=== PATIENT | female | born 1940 | race Caucasian/White ===

== ENCOUNTER 2018-01-26 05:54 | Inpatient (IN) | payer OTHER ==
--- NOTE | 2018-01-26 06:28 | EKG ---
Test Date: 2018-01-26 Test Time: 06:00:46 Farm Service Consultant: RHODA MEASUREMENT RESULTS: Intervals: Rate: 85 VA: 170 QRSD: 94 QT: 394 QTc: 468 [place]: P: 52 VA: 170 QRS: 32 T: 147 INTERPRETIVE STATEMENTS: Normal sinus rhythm Normal ECG Compared to ECG 11/10/2009 15:55:16 no significant change from previous ECG Electronically Signed On 01-26-18 06:27:29 CDT by Kurtis Freeman
[2018-01-26] MEDS ORDERED: FENTANYL CITR 100 MCG/2 ML ONE ×2 (06:31→08:27)
[2018-01-26] MEDS ORDERED: ONDANSETRON 4 MG/2 ML VIAL ONE ×2 (06:33→07:31)
[2018-01-26 06:46] LABS: Absolute Lymphocytes (CBC) 1.1 K/uL (0.7-4.9); Absolute Monocytes 1.8 K/uL (0.1-1.3); Basophils % 0.3 % (0-1.3); Hematocrit 42.7 % (36.0-45.0); Lymphocytes % 5.7 % (15.3-44.8); MPV 9.1 fL (7.6-11.3); Monocytes % 9.6 % (3.3-12.3); RBC Red Blood Cell Count 4.86 M/uL (3.86-4.86)
[2018-01-26 06:52] LABS: Protime INR 0.99
[2018-01-26 06:57] LABS: Potassium 3.9 mEq/L (3.6-5.0)
[2018-01-26 07:03] LABS: Albumin 3.7 g/dL (3.2-5.5); Bilirubin Direct 0.1 mg/dL (0-0.2); Bilirubin Total 0.6 mg/dL (0.3-1.2); Magnesium 1.7 mg/dL (1.8-2.5); Protein, Total 7.8 g/dL (6.0-8.3)
[2018-01-26 07:06] LABS: CKMB Creatine Kinase MB 14.7 ng/ml (0.3-4.0)
[2018-01-26] MEDS ORDERED: ASPIRIN 81 MG CHEWABLE TABLET ONE (07:23)
[2018-01-26] MEDS ORDERED: NITROGLYCERIN 0.4 MG/TAB SL ONE (07:24)
[2018-01-26] MEDS ORDERED: MAGNESIUM SULFATE 1 gm IVPB 1 GM/100 ML BAG IV ONE (07:24)
[2018-01-26] MEDS ORDERED: ENOXAPARIN 80 MG/0.8 ML SQ ONE (07:24)
[2018-01-26] MEDS ORDERED: CLOPIDOGREL 75 MG TABLET ONE (07:49)
[2018-01-26] MEDS ORDERED: LIDOCAINE 1% 20 ML MDV ONE (07:55)
[2018-01-26] MEDS ORDERED: HEPA 1000U/500MLS 2,000 UNIT/1,000 ML BAG IV ONE (07:55)
--- NOTE | 2018-01-26 07:59 | EDPHYS ---
Physician Documentation [facility] Name: Radha Ocampo Age: 77 yrs Sex: Female : 1940 Arrival Date: 01/26/2018 Time: 05:55 Bed 17 Private MD: Toby Parks V ED Physician Abhi Paz HPI: 01/26 06:25 This 77 yrs old Female presents to ER via Wheelchair with complaints of Chest pm1 Pain > 30 y/o, Vomiting. 06:25 The patient or guardian reports chest pain that is located primarily in the substernal pm1 area, epigastric area. Onset: yesterday, at 18:00. The pain radiates to back. Associated signs and symptoms: Pertinent positives: diaphoresis, nausea, vomiting, Pertinent negatives: cough, dizziness, headache, palpitations, shortness of breath. The chest pain is described as "Pain". Duration: The patient or guardian reports a single episode, that is still ongoing, and unchanged, Same level of intensity since onset. Modifying factors: The symptoms are alleviated by nothing. the symptoms are aggravated by Deep breathing makes it worse. Severity of pain: in the emergency department the pain is a 10 / 10. The patient has not experienced similar symptoms in the past. The patient has not recently seen a physician, the patient's primary care provider is Dr. Parks. Raw Material Handler Pete. Historical: - Allergies: 06:03 meperidine HCl (rash); aa1 06:03 Morphine; aa1 - PMHx: 06:03 Depression; Hyperlipidemia; Hypertension; Hypothyroidism; renal cell carcinoma aa1 contained; - PSHx: 06:03 Cholecystectomy; Hysterectomy; right kidney removal; Gastric Bypass; aa1 - Immunization history:: Flu vaccine is up to date. - Social history:: Smoking status: Patient/guardian denies using tobacco. - Ebola Screening: : No symptoms or risks identified at this time. ROS: 06:25 Constitutional: Negative for fever, chills, and weight loss, Eyes: Negative for injury, pm1 pain, redness, and discharge, ENT: Negative for injury, pain, and discharge, Neck: Negative for injury, pain, and swelling. 06:25 Respiratory: Negative for shortness of breath, cough, wheezing. Pain with deep inspiration 06:25 : Negative for injury, bleeding, discharge, and swelling, MS/Extremity: Negative for injury and deformity, Skin: Negative for injury, rash, and discoloration, Neuro: Negative for headache, weakness, numbness, tingling, and seizure. 06:25 Cardiovascular: Positive for chest pain, Negative for edema, palpitations. 06:25 Abdomen/GI: Positive for abdominal pain, nausea, vomiting, of the epigastric area. 06:25 Back: Positive for pain to back radiated from chest. Exam: 06:25 Constitutional: This is a well developed, well nourished patient who is awake, alert, pm1 and in no acute distress. Head/Face: Normocephalic, atraumatic. Eyes: Pupils equal round and reactive to light, extra-ocular motions intact. Lids and lashes normal. Conjunctiva and sclera are non-icteric and not injected. Cornea within normal limits. Periorbital areas with no swelling, redness, or edema. ENT: Nares patent. No nasal discharge, no septal abnormalities noted. Tympanic membranes are normal and external auditory canals are clear. Oropharynx with no redness, swelling, or masses, exudates, or evidence of obstruction, uvula midline. Mucous membranes moist. Neck: Trachea midline, no thyromegaly or masses palpated, and no cervical lymphadenopathy. Supple, full range of motion without nuchal rigidity, or vertebral point tenderness. No Meningismus. Chest/axilla: Normal chest wall appearance and motion. Nontender with no deformity. No lesions are appreciated. Cardiovascular: Regular rate and rhythm with a normal S1 and S2. No gallops, murmurs, or rubs. Normal PMI, no JVD. No pulse deficits. Respiratory: Lungs have equal breath sounds bilaterally, clear to auscultation and percussion. No rales, rhonchi or wheezes noted. No increased work of breathing, no retractions or nasal flaring. Abdomen/GI: Soft, non-tender, with normal bowel sounds. No distension or tympany. No guarding or rebound. No evidence of tenderness throughout. Back: No spinal tenderness. No costovertebral tenderness. Full range of motion. Skin: Warm, dry with normal turgor. Normal color with no rashes, no lesions, and no evidence of cellulitis. MS/ Extremity: Pulses equal, no cyanosis. Neurovascular intact. Full, normal range of motion. 06:25 ECG was reviewed by the Attending Physician. NSR No Stemi 06:25 Neuro: Orientation: is normal, Motor: is normal, Sensation: is normal, no obvious gross deficits. Vital Signs: 06:03 BP 132 / 69; Pulse 89; Resp 20; Temp 97.4; Pulse Ox 95% on R/A; Weight 70.31 kg; Height aa1 5 ft. 4 in. (162.56 cm); Pain 9/10; 06:57 BP 111 / 72; Pulse 72; Resp 14 S; Pulse Ox 93% on R/A; Pain 9/10; jd3 08:02 BP 130 / 72; Pulse 88; Resp 18; Pulse Ox 97% on 2 lpm NC; ph 06:03 Body Mass Index 26.61 (70.31 kg, 162.56 cm) aa1 MDM: 06:12 Patient medically screened. pm1 07:22 Data reviewed: vital signs. Counseling: I had a detailed discussion with the patient pm1 and/or guardian regarding: the historical points, exam findings, and any diagnostic results supporting the discharge/admit diagnosis, lab results, the need for further work-up and treatment in the hospital. 07:50 Physician consultation: Kurtis Freeman MD was contacted at 07:40, and will see patient in pm1 ED, in the emergency department to see patient at 07:45, Pete will take the patient to laborer shellfish processing. 08:10 Physician consultation: Toby Parks MD was contacted at 08:00, regarding admission, pm1 patient's condition, Pete plan to take patient to laborer shellfish processing, in the emergency department to see patient at 08:10. 01/26 06:13 Order name: Basic Metabolic Panel; Complete Time: 07:09 pm01/26 06:13 Order name: BNP; Complete Time: 07:05 pm1 01/26 06:13 Order name: CBC with Diff; Complete Time: 06:55 pm1 01/26 06:13 Order name: Ckmb; Complete Time: 07:09 pm01/26 06:13 Order name: CPK; Complete Time: 07:09 pm1 01/26 06:13 Order name: LFT's; Complete Time: 07:09 pm1 01/26 06:13 Order name: Magnesium; Complete Time: 07:09 pm01/26 06:13 Order name: PT-INR; Complete Time: 07:05 pm01/26 06:13 Order name: Ptt, Activated; Complete Time: 07:05 pm1 01/26 06:13 Order name: Troponin (emerg Dept Use Only); Complete Time: 07:05 pm01/26 06:13 Order name: XRAY Chest (1 view) pm1 01/26 06:13 Order name: Lipase; Complete Time: 07:09 pm01/26 06:05 Order name: EKG; Complete Time: 06:05 aa01/26 06:05 Order name: EKG - Nurse/Tech; Complete Time: 06:05 aa01/26 06:13 Order name: Cardiac monitoring; Complete Time: 06:22 pm01/26 06:13 Order name: IV Saline Lock; Complete Time: 06:22 pm01/26 06:13 Order name: Labs collected and sent; Complete Time: 06:23 pm01/26 06:13 Order name: O2 Per Protocol; Complete Time: 06:23 pm01/26 06:13 Order name: O2 Sat Monitoring; Complete Time: 06:23 pm01/26 07:48 Order name: EKG; Complete Time: 07:48 pm1 01/26 07:48 Order name: EKG - Nurse/Tech; Complete Time: 08:20 pm1 Administered Medications: 06:39 Drug: Zofran 4 mg Route: IVP; Site: left antecubital; jd3 17:00 Follow up: Response: No adverse reaction ph 06:39 Drug: fentaNYL (PF) 25 mcg Route: IVP; Site: left antecubital; jd3 07:00 Follow up: Response: No adverse reaction ph 07:35 Drug: Aspirin Chewable Tablet 324 mg Route: PO; ph 08:00 Follow up: Response: No adverse reaction ph 07:38 Drug: Nitroglycerin 0.4 mg Route: Sublingual; ph 08:00 Follow up: Response: No adverse reaction; Pain is decreased ph 07:40 Drug: Magnesium Sulfate 1 grams Route: IVPB; Infused Over: 1 hrs; Site: left ph antecubital; 08:00 Follow up: Response: No adverse reaction; IV Status: Infusion continued upon admission ph 07:42 Drug: Lovenox 1 mg/kg {Note: 70 mg given.} Route: Sub-Q; Site: right lower abdomen; ph 08:00 Follow up: Response: No adverse reaction ph Disposition: 19:05 Co-signature as Attending Physician, Abhi Paz MD. pk Disposition: 01/26/18 07:59 Hospitalization ordered by Toby Parks for Inpatient Admission. Preliminary diagnosis is Non-ST elevation (NSTEMI) myocardial infarction. - Bed requested for Intensive Care Unit. - Status is Inpatient Admission. ph - Condition is Fair. - Problem is new. - Symptoms have improved. UTI on Admission? No Signatures: Dispatcher [employer] EDND Kamryn Demarco RN RN aa1 Abhi Paz MD MD pkl Radha Frost RN RN ph Roger Miles, JENNIFER TIE BINDER pm1 Hermes Todd RN RN jd3 Corrections: (The following items were deleted from the chart) 07:26 06:57 Abdomen Pelvis W Con+CT.RAD.BRZ ordered. EDND EDMS 08:22 07:59 Hospitalization Ordered by Toby Parks MD for Inpatient Admission. Preliminary ph diagnosis is Non-ST elevation (NSTEMI) myocardial infarction. Bed requested for Intensive Care Unit. Status is Inpatient Admission. Condition is Fair. Problem is new. Symptoms have improved. UTI on Admission? No. pm1
--- NOTE | 2018-01-26 07:59 | ER ---
Nurse's Notes [facility] Name: Radha Ocampo Age: 77 yrs Sex: Female : 1940 Arrival Date: 01/26/2018 Time: 05:55 Bed 17 Private MD: Toby Parks V Diagnosis: Non-ST elevation (NSTEMI) myocardial infarction Presentation: 01/26 06:01 Presenting complaint: Patient states: epigastric pain and vomiting since yesterday. aa1 Report sharp pain 04/27. Transition of care: patient was not received from another setting of care. Onset of symptoms was January 25, 2018. Risk Assessment: Do you want to hurt yourself or someone else? Patient reports no desire to harm self or others. Initial Sepsis Screen: Does the patient meet any 2 criteria? No. Patient's initial sepsis screen is negative. Does the patient have a suspected source of infection? No. Patient's initial sepsis screen is negative. Care prior to arrival: None. 06:01 Method Of Arrival: Wheelchair aa1 06:01 Acuity: CIARA 3 aa1 07:57 Acuity: CIARA 2 ss Triage Assessment: 06:03 General: Appears in no apparent distress. uncomfortable, Behavior is calm, cooperative, aa1 appropriate for age. Historical: - Allergies: 06:03 meperidine HCl (rash); aa1 06:03 Morphine; aa1 - PMHx: 06:03 Depression; Hyperlipidemia; Hypertension; Hypothyroidism; renal cell carcinoma aa1 contained; - PSHx: 06:03 Cholecystectomy; Hysterectomy; right kidney removal; Gastric Bypass; aa1 - Immunization history:: Flu vaccine is up to date. - Social history:: Smoking status: Patient/guardian denies using tobacco. - Ebola Screening: : No symptoms or risks identified at this time. Screenin:41 Abuse screen: Denies threats or abuse. Nutritional screening: No deficits noted. jd3 Tuberculosis screening: No symptoms or risk factors identified. Fall Risk IV access (20 points). Ambulatory Aid- None/Bed Rest/Nurse Assist (0 pts). Gait- Weak (10 pts.). Mental Status- Oriented to own ability (0 pts). Total [place] Fall Scale indicates Low Risk Score (25-44 pts). Fall prevention measures have been instituted. Side Rails Up X 2 Placed close to Nursing Station Frequent Obs/Assesments occuring Family Present and informed to notify staff if they need to leave bedside. Assessment: 05:55 General: Appears uncomfortable, Behavior is cooperative, appropriate for age. Pain: jd3 Complains of pain in chest Pain radiates to back and abdomen Pain currently is 10 out of 10 on a pain scale. Quality of pain is described as sharp, Pain began 1 day ago. Is continuous, Also complains of nausea. Neuro: Level of Consciousness is awake, alert, obeys commands, Oriented to person, place, time, situation. Cardiovascular: Heart tones S1 S2 present Capillary refill < 3 seconds Patient's skin is warm and dry. Rhythm is regular. Respiratory: Airway is patent Respiratory effort is even, unlabored, Respiratory pattern is regular, symmetrical, Breath sounds are clear bilaterally. GI: Abdomen is round Bowel sounds present X 4 quads. Abd is soft Abdomen is tender to palpation X 4 quads. Reports nausea, vomiting. : No signs and/or symptoms were reported regarding the genitourinary system. EENT: No signs and/or symptoms were reported regarding the EENT system. Derm: Skin is intact, Skin is dry, Skin is normal, Skin temperature is warm. Musculoskeletal: Circulation, motion, and sensation intact. Range of motion: intact in all extremities. 06:58 Reassessment: Patient appears in no apparent distress at this time. Patient and/or jd3 family updated on plan of care and expected duration. Pain level reassessed. Patient is alert, oriented x 3, equal unlabored respirations, skin warm/dry/pink. Patient states symptoms have not improved. 07:05 Reassessment: Roger Miles NP notified of critical lab value. Troponin 1.86 and ss CKMB 14.7. 07:55 Reassessment: Patient appears in no apparent distress at this time. Patient and/or ph family updated on plan of care and expected duration. Pain level reassessed. Patient is alert, oriented x 3, equal unlabored respirations, skin warm/dry/pink. Dr Freeman at bedside to speak w/ pt, pt to be transferred to golf course laborer for catherterization. 08:00 Reassessment: laborer adjustable steel joist staff at bedside to transport patient to laborer adjustable steel joist. Vital Signs: 06:03 BP 132 / 69; Pulse 89; Resp 20; Temp 97.4; Pulse Ox 95% on R/A; Weight 70.31 kg; Height aa1 5 ft. 4 in. (162.56 cm); Pain 9/10; 06:57 BP 111 / 72; Pulse 72; Resp 14 S; Pulse Ox 93% on R/A; Pain 9/10; jd3 08:02 BP 130 / 72; Pulse 88; Resp 18; Pulse Ox 97% on 2 lpm NC; ph 06:03 Body Mass Index 26.61 (70.31 kg, 162.56 cm) aa1 Vitals: 08:02 Cardiac Rhythm Assessment Regular. ph ED Course: 05:55 Patient arrived in ED. am2 05:55 Toby Parks MD is Private Physician. am2 05:56 Hermes Todd, CONCETTA is Primary Nurse. jd3 06:02 Triage completed. aa1 06:03 Roger Miles NP is PHCP. pm1 06:03 Abhi Paz MD is Attending Physician. pm1 06:03 Arm band placed on right wrist. Patient placed in an exam room, on a stretcher. aa1 06:04 Patient has correct armband on for positive identification. Placed in gown. Bed in low aa1 position. Call light in reach. electronic device monitor on. Pulse ox on. NIBP on. 06:04 EKG done, by ED staff, reviewed by Abhi Paz MD. Patient maintains SpO2 saturation aa1 greater than 95% on room air. 06:43 X-ray completed. Portable x-ray completed in exam room. Patient tolerated procedure kw well. 06:44 XRAY Chest (1 view) In Process Unspecified. EDMS 07:57 Toby Parks MD is Hospitalizing Provider. pm1 08:00 Inserted saline lock: 20 gauge in right antecubital area, using aseptic technique. ph 08:01 Surgical consent explained by staff, explained by physician, signed by patient, pt ph consented for cardiac cath. 08:02 No provider procedures requiring assistance completed. ph 08:05 Patient admitted, IV remains in place. ph Administered Medications: 06:39 Drug: Zofran 4 mg Route: IVP; Site: left antecubital; jd3 17:00 Follow up: Response: No adverse reaction ph 06:39 Drug: fentaNYL (PF) 25 mcg Route: IVP; Site: left antecubital; jd3 07:00 Follow up: Response: No adverse reaction ph 07:35 Drug: Aspirin Chewable Tablet 324 mg Route: PO; ph 08:00 Follow up: Response: No adverse reaction ph 07:38 Drug: Nitroglycerin 0.4 mg Route: Sublingual; ph 08:00 Follow up: Response: No adverse reaction; Pain is decreased ph 07:40 Drug: Magnesium Sulfate 1 grams Route: IVPB; Infused Over: 1 hrs; Site: left ph antecubital; 08:00 Follow up: Response: No adverse reaction; IV Status: Infusion continued upon admission ph 07:42 Drug: Lovenox 1 mg/kg {Note: 70 mg given.} Route: Sub-Q; Site: right lower abdomen; ph 08:00 Follow up: Response: No adverse reaction ph Outcome: 07:59 Decision to Hospitalize by Provider. pm1 08:04 Admitted to Card Mounter accompanied by nurse, accompanied by tech, family with patient, ph via stretcher, with oxygen. 08:04 Condition: stable 08:04 Instructed on the need for admit. 08:22 Patient left the ED. ph Signatures: Dispatcher [employer] EDKamryn Joy RN RN aa1 Kavitha Maxwell RN RN Khadijah Vo Patricia, RN RN ph Roger Miles NP METAL MILLING MACHINE OPERATOR pm1 Saira Chahal Jonathon RN RN jd3 Corrections: (The following items were deleted from the chart) 07:49 07:42 Lovenox 1 mg/kg Sub-Q in right lower abdomen ph ph
[2018-01-26] MEDS ORDERED: NA CHLORIDE 0.9% 500 ML ONE (08:21)
[2018-01-26] MEDS ORDERED: MIDAZOLAM HCL 2 MG/2 ML INJ ONE (08:27)
[2018-01-26] MEDS ORDERED: NA CHLORIDE 0.9% 0 ML ONE (08:28)
[2018-01-26] MEDS ORDERED: ATROPINE SULF 1 MG/10 ML SYR IV ONE (08:28)
--- NOTE | 2018-01-26 09:29 | EKG ---
Test Date: 2018-01-26 Test Time: 06:46:58 Supervisor [place]: RHODA MEASUREMENT RESULTS: Intervals: Rate: 73 [place]: 176 QRSD: 94 QT: 406 QTc: 447 [place]: P: 55 [place]: 176 QRS: 30 T: 57 INTERPRETIVE STATEMENTS: Normal sinus rhythm Nonspecific T wave abnormality Abnormal ECG Compared to ECG 01/26/2018 06:00:46 T-wave abnormality now present Electronically Signed On 01-26-18 09:29:15 CDT by Kurtis Freeman
[2018-01-26] MEDS ORDERED: NICARDIPINE HCL 25 MG/10 ML IV ONE (09:54)
[2018-01-26] MEDS ORDERED: HEPARIN 5000 UNIT/ML 1 ML VIAL ONE (09:54)
[2018-01-26] MEDS ORDERED: NITROGLYCERIN 100 MCG/ML SYR (for cath lab use only) IV ONE (09:54)
--- NOTE | 2018-01-26 09:59 | RAD REPORT ---
EXAM DESCRIPTION: RAD - Chest Single View - 01/26/2018 6:44 am CLINICAL HISTORY: Epigastric pain COMPARISON: April 2014 TECHNIQUE: AP portable chest image was obtained 0640 hours . FINDINGS: Interstitial markings are accentuated by under penetrated technique and shallow inspiratio n. Findings are still questionable for early interstitial edema or infiltrate. There is a minimal aubrey eolar component in the mid and lower left lung field. Trachea is midline. . Vasculature within normal limits for portable imaging. Heart size is upper normal, felt to be stable. Small hiatal hernia or d iaphragmatic eventration medial left base. No measurable pleural effusion and no pneumothorax. No [place] ss bony abnormality seen. No acute aortic findings suspected. IMPRESSION: Prominent interstitial markings with patchy alveolar opacities on the left. Patient has a baseline prominent interstitial pattern. Current findings are suspicious for edema or i nfiltrate. Correlation is needed with any volume overload findings.
[2018-01-26] MEDS ORDERED: NITROGLYCERIN 0.4 MG/TAB SL PRN (10:06)
--- NOTE | 2018-01-26 10:56 | OP ---
Surgeon: Kurtis Freeman MD Procedures: Left heart catheterization, coronary left ventricular angiography. Procedure Findings: The patient has normal coronary arteries. She is left dominant. The left ventr icular angiogram shows a typical [place] with apical ballooning, normal contractility of the mor e proximal segments, and completely normal coronary arteries. Procedure In Detail: The patient had ongoing chest pain, chest pain started 24 hours before the proc edure, brought to the cardiac computer lab assistant in a fasting state, sedated with Versed and fentanyl, prepared and draped in usual sterile fashion. Right radial approach was used. A 1% lidocaine was used to an esthetize the skin over the right radial artery. The artery entered using a 21-gauge needle. A 0.02 1 inch diameter guidewire was used to cannulate the artery. This was used to place a 6-Sinhala [email or web address] radial sheath. As soon as the sheath was in, we gave the radial cocktail consisting of nicardipine, heparin, and nitroglycerin. We used a TIG catheter by [employer], guided into the ascending aorta using a Glidewire and fluoroscopy. We used the same catheter to angiogram the left ventricle and right an d left coronary arteries. At the end of the procedure, all catheters were withdrawn over a J-wire. Sheath was flushed, removed, and arteriotomy closed with a TR band. No complications from the proced ure. Estimated Blood Loss: 5 cc. Vp Information Technology: Cheli Jacobson. TONIE/ANTONIO Voice ID: [id number] Report ID: [id number]
--- NOTE | 2018-01-26 12:02 | CON ---
History Of Present Illness: Ms. Ocampo started having chest pain yesterday, more than 24 hours afte r this dictation. It was central chest. It made her feel short of breath and each breath hurts her. She did not see a doctor until about 6 a.m. today. She has had time to do an EKG that did not show a classic injury pattern nor definite Q-waves, but had a lot of nonspecific changes and troponin cam e back at 1.86. The patient still has her pain. Nitro seemed to have relieved it some, and I was as ked to see her after all those things were done. Ms. Ocampo has never had coronary heart disease be fore. She has had noninvasive workups. A nuclear stress test was normal in 2017. An echocardiogram shows aortic sclerosis, mild stenosis. No significant stenosis, not enough to call it stenosis. Ej ection fraction has always been normal. She has underlying hypertension. Since being in the [facility], she has received a loading dose of Plavix, a large dose of aspirin 324 mg, and 80 mg of Lovenox. The patient continues to have the chest pain. Allergies: SHE REPORTS ALLERGIES TO MEPERIDINE AND MORPHINE. Physical Examination: General: She is alert, oriented, pleasant, appears to be her stated age. She is in mild distress wh en she takes a breath and it hurts more. Lungs: Clear to auscultation. Heart: Reveals a regular rate and rhythm. Grade 1/6 systolic murmur. It does not really sound like aortic stenosis. Extremities: Reveal palpable pulses. Social History: The patient uses no tobacco. Rare alcohol. No illegal drugs. Has no history of di abetes. Laboratory Data: Her creatinine is 0.81, sodium is 126. I believe she does take a diuretic amongst all of her other medications that may be the cause for it. We are going to take her to the metallurgy laboratory technician, see where the coronary situation is. If she has normal coronaries with symptoms like this, then I would ask the ER doctors to consider an acute pulmonary em bolus and get a CT angio of the chest. TONIE/ANTONIO Voice ID: [id number] Report ID: [id number]
[2018-01-26] MEDS: ACETAMINOPHEN 500 MG TAB PO PRN (13:47)
[2018-01-26] MEDS: ONDANSETRON 4 MG/2 ML VIAL IV PRN ×2 (13:47→17:39)
[2018-01-26 13:55] VITALS: BMI 30.4
--- NOTE | 2018-01-26 14:42 | RAD REPORT ---
EXAM DESCRIPTION: US - Abdomen Exam Complete - 01/26/2018 2:31 pm CLINICAL HISTORY: Abdominal pain, nausea and vomiting, history of cholecystectomy and right nephrect smiley COMPARISON: None. FINDINGS: Gallbladder is absent. No mass or abnormal fluid collection in the gallbladder fossa. Comm on bile duct is normal with no common duct stone identified. The liver and spleen show no suspicious findings. Splenic granulomas are present. The pancreas is grossly normal but partially obscured. Fatt y infiltration of the liver is suspected. Right kidney is absent. No mass in the right renal fossa. No hydronephrosis or mass of the left kidne y. Aorta is normal is size. No ascites or bulky lymphadenopathy. IMPRESSION: Gallbladder and right kidney are absent. No acute abdominal findings. No significant cheri nge from the March 2017 study.
--- NOTE | 2018-01-26 16:13 | EKG ---
Test Date: 2018-01-26 Test Time: 07:54:11 Mva Operator: CARMENCITA MEASUREMENT RESULTS: Intervals: Rate: 76 PA: 164 QRSD: 90 QT: 406 QTc: 456 [place]: P: 54 PA: 164 QRS: 24 T: 36 INTERPRETIVE STATEMENTS: Normal sinus rhythm Nonspecific T wave abnormality Abnormal ECG Compared to ECG 01/26/2018 06:46:58 No significant changes Electronically Signed On 01-26-18 16:12:07 CDT by Kurtis Freeman
--- NOTE | 2018-01-26 18:06 | P.HP ---
Certification for Inpatient Patient admitted to: Inpatient With expected LOS: >2 Midnights Practitioner: I am a practitioner with admitting privileges, knowledge of patient current condition, hospital course, and medical plan of care. Services: Services provided to patient in accordance with Admission requirements found in Title 42 Section 412.3 of the Code of Federal Regulations Patient History Date of Service: 01/26/18 Reason for admission: CHEST PAIN History of Present Illness: MRS. WELLER HAS CHEST PAIN WITH RADIATION TO JAW, NAUSEA, VOMITING FOR A FEW TIMES AND DIAPHORESIS. SHE HAS TROPONIN ELEVATION AND ANTERIOR EKG CHANGES. DR. ELDER DID CATH THIS AM AND IT SHOWS NORMAL CORONARIES. Allergies meperidine HCl [From Demerol] Allergy (Verified 03/30/17 20:38) Unknown Morphine Allergy (Uncoded 03/30/17 20:38) Unknown Home Medications: Aspirin 1 pill PO DAILY 03/30/17 Levothyroxine [Synthroid*] 75 mcg PO DAILY 03/30/17 Simvastatin 1 pill PO DAILY 03/30/17 Losartan Potassium [Cozaar] 100 mg PO DAILY 03/31/17 Cholecalciferol (Vitamin D3) [Vitamin D3] 1 cap PO DAILY 01/26/18 Cranberry Conc/C/Bacill Coag [Cranberry Tablet] 4,200 mg PO DAILY 01/26/18 Sertraline [Zoloft] 100 mg PO DAILY 01/26/18 - Past Medical/Surgical History Has patient received pneumonia vaccine in the past: Yes Diabetic: No -: Herpes -: Thyroidisim -: Hypertension -: Cholesterol -: Depression -: GERD -: Arthritis pain -: Kidney Cancer -: Nephrectomy Right -: gastric bypass -: Hysteroctomy -: Hernia Repair - Social History Smoking Status: Never smoker Alcohol use: No CD- Drugs: No Caffeine use: No Place of Residence: Home Review of Systems 10-point ROS is otherwise unremarkable General: Weakness, Malaise Cardiovascular: Chest Pain Gastrointestinal: Nausea, Vomiting Physical Examination - Vital Signs Temperature: 98.4 F Blood Pressure: 132/57 Pulse: 69 Respirations: 15 Pulse Ox (%): 99 - Physical Exam General: Alert, Mild distress HEENT: Atraumatic, PERRLA, Mucous membr. moist/pink, EOMI, Sclerae nonicteric Neck: Supple, 2+ carotid pulse no bruit, No LAD, Without JVD or thyroid abnormality Respiratory: Clear to auscultation bilaterally, Normal air movement Cardiovascular: Regular rate/rhythm, Normal S1 S2 Gastrointestinal: Normal bowel sounds, No tenderness Musculoskeletal: No tenderness Integumentary: No rashes Neurological: Normal gait, Normal speech, Normal strength at 5/5 x4 extr, Normal tone, Normal affect Lymphatics: No axilla or inguinal lymphadenopathy - Studies Laboratory Data (last 24 hrs) 01/26/18 06:13: PT 11.7, INR 0.99, APTT 28.7 01/26/18 06:13: WBC 18.9 H, Hgb 14.1, Hct 42.7, Plt Count 273 01/26/18 06:13: B-Natriuretic Peptide 575 H 01/26/18 06:13: Sodium 126 L, Potassium 3.9, BUN 13, Creatinine 0.81, Glucose 168 H, Magnesium 1.7 L, Total Bilirubin 0.6, AST 35, ALT 16, Alkaline Phosphatase 80, Lipase 19 L Assessment and Plan - Problems (Diagnosis) (1) Non-ST elevated myocardial infarction Current Visit: Yes Status: Acute Plan: UNUSUAL SHE HAD NORMAL CATH. RESUME ASA LOVENOX OXYGEN SHE MAY HAVE EMBOLIC EVENT FROM [place]. DR. ELDER ON CASE. (2) HTN (hypertension) Current Visit: Yes Status: Acute (3) Leukocytosis Current Visit: Yes Status: Acute Plan: [place] CAN GIVE THIS BANDS HIGH NO SIGNS OF INFECTION. I WILL REDO LAB IN AM. (4) Hyponatremia Current Visit: Yes Status: Acute Plan: WILL GIVE IVF AND WATCH MEDS. AVOID DIURETICS IF PERSISTANT WILL DO MORE QU. - Advance Directives Does patient have a Living Will: No Does patient have a Durable POA for Healthcare: No
[2018-01-26] MEDS: SERTRALINE HCL 100 MG TAB PO SCH (21:55)
[2018-01-26] MEDS: ATORVASTATIN 10 MG TAB PO SCH (21:55)
[2018-01-27] MEDS: ACETAMINOPHEN 500 MG TAB PO PRN ×2 (01:55→12:37)
[2018-01-27 05:16] LABS: Absolute Lymphocytes (CBC) 1.3 K/uL (0.7-4.9); Absolute Neutrophil 8.7 K/uL (1.8-8.0); Basophils % 0.7 % (0-1.3); Eosinophils % 0.9 % (0-4.4); Hematocrit 37.2 % (36.0-45.0); Lymphocytes % 10.3 % (15.3-44.8); MCH 29.1 pg (27.0-35.0); MCV 88.9 fL (80-100); MPV 9.2 fL (7.6-11.3); Monocytes % 16.4 % (3.3-12.3); RBC Red Blood Cell Count 4.18 M/uL (3.86-4.86)
[2018-01-27] MEDS: LEVOTHYROXINE SOD 0.075 MG TAB PO SCH (06:03)
[2018-01-27] MEDS: ONDANSETRON 4 MG/2 ML VIAL IV PRN (08:24)
[2018-01-27] MEDS ORDERED: SIMVASTATIN PO SCH (09:00)
[2018-01-27] MEDS ORDERED: SERTRALINE HCL 100 MG TAB PO SCH (09:00)
[2018-01-27] MEDS ORDERED: HOME MED 1 EA UNK (Cholecalciferol (Vitamin D3) [Vitamin D3] 1 CAP) PO SCH (09:00)
[2018-01-27] MEDS ORDERED: HOME MED 1 EA UNK (Losartan Potassium [Cozaar] 100 MG) PO SCH (09:00)
[2018-01-27] MEDS: VITAMIN D 1000 UNIT TAB PO SCH (10:39)
[2018-01-27] MEDS: LOSARTAN POTASSIUM 50 MG TABLET PO SCH (10:39)
[2018-01-27] MEDS: ASPIRIN EC 81 MG TAB PO SCH (10:40)
--- NOTE | 2018-01-27 10:49 | RAD REPORT ---
EXAM DESCRIPTION: CT - Chest Angio - 01/27/2018 10:33 am CLINICAL HISTORY: Chest pain. COMPARISON: None. TECHNIQUE: CT angiogram of the pulmonary arteries was performed with MIP. All CT scans are performed using dose optimization technique as appropriate and may include automated exposure control or mA/KV adjustment according to patient size. FINDINGS: No evidence of pulmonary thromboembolism. No acute aortic finding demonstrated. Linear subsegmental atelectasis in both posterior lung bases. No focal infiltrate. Trace pleural fluid. No concerning bony finding. IMPRESSION: No evidence of pulmonary thromboembolism. No acute lung findings.
--- NOTE | 2018-01-27 10:54 | RAD REPORT ---
EXAM DESCRIPTION: CT - Abdomen W Contrast CLINICAL HISTORY: Abdominal pain COMPARISON: 12/12/[address] scans are performed using dose optimization technique as appropriate and may includ e automated exposure control or mA/KV adjustment according to patient size. FINDINGS: Trace bilateral pleural fluid, greater on the right. Postsurgical changes are present of a gastric bypass. The liver, spleen, pancreas, adrenal glands and left kidney are within normal limits. The right kidne y is absent. No free fluid, bowel obstruction or free air. Prominent diverticulosis is present. The appendix is no rmal. No significant adenopathy in the abdomen. Small fat containing ventral hernia. Moderate lumbar degenerative changes. IMPRESSION: Prominent diverticulosis is noted without diverticulitis. Trace bilateral pleural fluid.
--- NOTE | 2018-01-27 13:09 | PN ---
Date of Progress Note: 01/27/2018 Subjective: Ms. Ocampo is a 77-year-old woman. She had come in to the hospital with nausea, vomiti ng, elevated troponin, thought to have non-ST elevation myocardial infarction; however, a heart anuradha terization, which was done by Dr. Kurtis Freeman yesterday via right wrist approach, showed normal kyle naries. Overnight had no telemetry issues. No chest pain. Her right wrist site appeared to be inta ct with good radial pulses and ulnar pulses bilaterally. There is no hematoma. We will sign off Mrs Maximus Ocampo case. She can certainly go to a regular room whenever it is okay with Dr. Parks. CALLIE/ANTONIO Voice ID: [id number] Report ID: [id number]
--- NOTE | 2018-01-27 14:41 | EKG ---
Test Date: 2018-01-27 Test Time: 12:04:52 Continuous Improvement Coach: CARMENCITA MEASUREMENT RESULTS: Intervals: Rate: 71 MO: 168 QRSD: 84 QT: 470 QTc: 510 [place]: P: 65 MO: 168 QRS: 2 T: 176 INTERPRETIVE STATEMENTS: Normal sinus rhythm T wave abnormality, consider inferior ischemia T wave abnormality, consider anterolateral ischemia Prolonged QT Abnormal ECG Compared to ECG 01/27/2018 08:09:35 No significant changes Electronically Signed On 01-27-18 14:39:52 CDT by Lenard Angela
--- NOTE | 2018-01-27 14:42 | EKG ---
Test Date: 2018-01-27 Test Time: 08:09:35 [employer]her Dietary Service Supervisor: CARMENCITA MEASUREMENT RESULTS: Intervals: Rate: 64 NV: 182 QRSD: 88 QT: 508 QTc: 524 [place]: P: 70 NV: 182 QRS: 26 T: 190 INTERPRETIVE STATEMENTS: Normal sinus rhythm T wave abnormality, consider inferior ischemia T wave abnormality, consider anterolateral ischemia Prolonged QT Abnormal ECG Compared to ECG 01/26/2018 07:54:11 Possible ischemia now present Prolonged QT interval now present T-wave abnormality still present Electronically Signed On 01-27-18 14:40:07 CDT by Lenard Angela
[2018-01-27 16:22] LABS: Urine Appearance CLEAR; Urine Bilirubin NEGATIVE (NEG); Urine Blood NEGATIVE (NEG); Urine Color YELLOW; Urine Glucose NEGATIVE (NEG); Urine Protein NEGATIVE (NEG); Urine Specific Gravity 1.025 (1.005-1.030); Urine Urobilinogen 0.2 mg/dL (0.2-1.0)
[2018-01-27 16:28] LABS: Urine Microscopic Reflex ORDER UMIC
[2018-01-27 16:48] LABS: Urine Bacteria <20 /HPF (<20); Urine Culture Reflex Order NOT NEEDED; Urine RBC <5 /HPF (NONE SEEN)
[2018-01-27] MEDS ORDERED: ENOXAPARIN 40 MG/0.4 ML SQ SCH (17:00)
--- NOTE | 2018-01-27 18:26 | P.PN ---
Subjective Date of Service: 01/27/18 Chief Complaint: CHEST PAIN Subjective: Improving (MUCH BETTER) Review of Systems 10-point ROS is otherwise unremarkable General: Weakness, Malaise Physical Examination - Vital Signs Temperature: 97.5 F Blood Pressure: 148/52 Pulse: 66 Respirations: 14 Pulse Ox (%): 97 - Physical Exam General: Mild distress, Obese HEENT: Atraumatic, PERRLA, EOMI Neck: Supple, JVD not distended Respiratory: Clear to auscultation bilaterally, Normal air movement Cardiovascular: Regular rate/rhythm, Normal S1 S2 Gastrointestinal: Normal bowel sounds, No tenderness Musculoskeletal: No tenderness Integumentary: No rashes Neurological: Normal speech, Normal tone, Normal affect Lymphatics: No axilla or inguinal lymphadenopathy - Studies Medications List Reviewed: Yes Assessment And Plan - Current Problems (Diagnosis) (1) Non-ST elevated myocardial infarction Onset Date: 01/27/18 Current Visit: Yes Status: Acute Plan: UNUSUAL SHE HAD NORMAL CATH. RESUME ASA LOVENOX OXYGEN SHE MAY HAVE EMBOLIC EVENT FROM [place]. DR. ELDER ON CASE. MEDICAL MX CATH NEGATIVE MOVE TO FLOOR STABLE CT SCANS ORDERED TO RULE OUT OTHER CAUSES OF WBC ELEVATION. (2) HTN (hypertension) Onset Date: 01/27/18 Current Visit: Yes Status: Acute (3) Leukocytosis Onset Date: 01/27/18 Current Visit: Yes Status: Acute Plan: [place] CAN GIVE THIS BANDS HIGH NO SIGNS OF INFECTION. I WILL REDO LAB IN AM. (4) Hyponatremia Onset Date: 01/27/18 Current Visit: Yes Status: Acute Plan: WILL GIVE IVF AND WATCH MEDS. AVOID DIURETICS IF PERSISTANT WILL DO MORE QU.
[2018-01-27] MEDS: ATORVASTATIN 10 MG TAB PO SCH (20:06)
[2018-01-27] MEDS: SERTRALINE HCL 100 MG TAB PO SCH (20:06)
[2018-01-28] MEDS: LEVOTHYROXINE SOD 0.075 MG TAB PO SCH (06:03)
[2018-01-28] MEDS ORDERED: PANTOPRAZOLE 40MG TABLET PO SCH (06:30)
[2018-01-28] MEDS: LOSARTAN POTASSIUM 50 MG TABLET PO SCH (08:40)
[2018-01-28] MEDS: VITAMIN D 1000 UNIT TAB PO SCH (08:40)
[2018-01-28] MEDS: ASPIRIN EC 81 MG TAB PO SCH (08:40)
[2018-01-28 13:57] VITALS: O2SAT 97
[2018-01-28 14:04] VITALS: BP 95/50; TEMP 97.7
--- NOTE | 2018-01-28 21:40 | P.DS ---
Admission Date: 01/26/18 Discharge Date: 01/28/18 Disposition: ROUTINE DISCHARGE Discharge Condition: FAIR Reason for Admission: CHEST PAIN - Problems (1) Non-ST elevated myocardial infarction Onset Date: 01/27/18 Status: Acute (2) HTN (hypertension) Onset Date: 01/27/18 Status: Acute (3) Leukocytosis Onset Date: 01/27/18 Status: Acute (4) Hyponatremia Onset Date: 01/27/18 Status: Acute Brief History of Present Illness: MRS. WELLER HAS CHEST PAIN WITH RADIATION TO JAW, NAUSEA, VOMITING FOR A FEW TIMES AND DIAPHORESIS. SHE HAS TROPONIN ELEVATION AND ANTERIOR EKG CHANGES. DR. ELDER DID CATH THIS AM AND IT SHOWS NORMAL CORONARIES. MS. WELLER HAS DONE WELL . SHE HAS NO MORE CHEST PAIN. HER CATH IS NEGATIVE. SHE IS STABLE TO GO HOME. HER CT CHEST , ABD AND PELVIS ARE NEGATIVE. Vital Signs/Physical Exam: Temp Pulse Resp BP Pulse Ox 97.7 F 72 18 95/50 L 96 01/28/18 12:00 01/28/18 12:00 01/28/18 12:00 01/28/18 12:00 01/28/18 12:00 Laboratory Data at Discharge: WBC 12.2 K/uL (4.3-10.9) H D 01/27/18 04:40 Hgb 12.2 g/dL (12.0-15.0) 01/27/18 04:40 Hct 37.2 % (36.0-45.0) 01/27/18 04:40 Plt Count 178 K/uL (152-406) D 01/27/18 04:40 PT 11.7 SECONDS (9.5-12.5) 01/26/18 06:13 INR 0.99 01/26/18 06:13 APTT 28.7 SECONDS (24.3-36.9) 01/26/18 06:13 Sodium 131 mEq/L (135-145) L 01/27/18 04:40 Potassium 4.0 mEq/L (3.6-5.0) 01/27/18 04:40 BUN 14 mg/dL (6-20) 01/27/18 04:40 Creatinine 0.95 mg/dL (0.44-1.00) 01/27/18 04:40 Glucose 127 mg/dL (65-120) H 01/27/18 04:40 Magnesium 1.7 mg/dL (1.8-2.5) L 01/26/18 06:13 Total Bilirubin 0.6 mg/dL (0.3-1.2) 01/26/18 06:13 AST 35 IU/L (10-42) 01/26/18 06:13 ALT 16 IU/L (10-60) 01/26/18 06:13 Alkaline Phosphatase 80 IU/L (42-121) 01/26/18 06:13 Troponin I 1.24 ng/mL (<0.03) H* 01/26/18 14:49 B-Natriuretic Peptide 575 pg/ml (<=100) H 01/26/18 06:13 Lipase 19 U/L (22-51) L 01/26/18 06:13 Home Medications: Aspirin 1 pill PO DAILY 03/30/17 Levothyroxine [Synthroid*] 75 mcg PO DAILY 03/30/17 Simvastatin 1 pill PO DAILY 03/30/17 Losartan Potassium [Cozaar] 100 mg PO DAILY 03/31/17 Cholecalciferol (Vitamin D3) [Vitamin D3] 1 cap PO DAILY 01/26/18 Cranberry Conc/C/Bacill Coag [Cranberry Tablet] 4,200 mg PO DAILY 01/26/18 Sertraline [Zoloft*] 100 mg PO DAILY 01/26/18 Followup: [facility] [Provider Group] - 1-2 Weeks (Call to schedule an appointment) Toby Parks MD [Primary Care Provider] - 1-2 Weeks (Call to schedule an appointment)
== END 2018-01-28 15:53 | disposition home or self-care (01) | DRG 281 ==
LOC: ER 05:54 → ERHOLD 07:59 → 3RD-ICU 11:46 → 4TH 01-27 13:30
PROVIDERS: ADMIT Internal Medicine; ATTEND Internal Medicine
PROC: 4A023N7 Measurement of Cardiac Sampling and Pressure, Left Heart, Percutaneous Approach (ICD-10-PCS; principal; 2018-01-26)
PROC: B201YZZ Plain Radiography of Multiple Coronary Arteries using Other Contrast (ICD-10-PCS; 2018-01-26)
PROC: B205YZZ Plain Radiography of Left Heart using Other Contrast (ICD-10-PCS; 2018-01-26)
DX: I21.4 Non-ST elevation (NSTEMI) myocardial infarction (principal); E87.1 Hypo-osmolality and hyponatremia; I10 Essential (primary) hypertension; K21.9 Gastro-esophageal reflux disease without esophagitis
CPT/HCPCS: 36415; 71045; 71275; 74160; 76700; 80048; 80076; 81003; 81015; 82550; 82553; 83690; 83735; 83880; 84484; 85025; 85610; 85730; 87493; 93005; 93458; 96365; 96372; 96375; 99285; C1893; J0583; J1644; J1650; J2250; J2405; J3010; J3475; Q9967

== ENCOUNTER 2018-03-26 11:49 | Emergency (ER) | payer OTHER ==
[2018-03-26] MEDS ORDERED: NA CHLORIDE 0.9% 500 ML ONE (12:35)
[2018-03-26] MEDS ORDERED: ONDANSETRON 4 MG/2 ML VIAL ONE (12:35)
[2018-03-26] MEDS ORDERED: cloNIDine HCl 0.1 MG TAB ONE (12:35)
[2018-03-26] MEDS ORDERED: METOCLOPRAMIDE 10 MG/2mL INJ ONE (12:35)
[2018-03-26 12:48] LABS: Potassium 3.8 mmol/L (3.5-5.1)
[2018-03-26 12:53] LABS: Protime INR 0.97
[2018-03-26 13:02] LABS: Absolute Lymphocytes (CBC) 0.9 K/uL (0.7-4.9); Absolute Monocytes 0.6 K/uL (0.1-1.3); Absolute Neutrophil 5.9 K/uL (1.8-8.0); Basophils % 1.1 % (0-1.3); Eosinophils % 1.6 % (0-4.4); Hematocrit 40.1 % (36.0-45.0); Lymphocytes % 11.8 % (15.3-44.8); MCH 29.3 pg (27.0-35.0); MCV 87.6 fL (80-100); MPV 8.3 fL (7.6-11.3); Monocytes % 7.4 % (3.3-12.3); RBC Red Blood Cell Count 4.58 M/uL (3.86-4.86)
--- NOTE | 2018-03-26 13:07 | RAD REPORT ---
EXAM DESCRIPTION: CT - Head Brain Wo Cont - 03/26/2018 12:54 pm CLINICAL HISTORY: Headache, double vision COMPARISON: CT head October 2009 TECHNIQUE: Axial 5 mm thick images of the head were obtained without IV contrast. All CT scans are performed using dose optimization technique as appropriate and may include automated exposure control or mA/KV adjustment according to patient size. FINDINGS: No intracranial hemorrhage, new mass, edema or shift of mid-line structures. No acute infa rction changes seen. Patient has a mild underlying atrophy and chronic ischemic pattern similar to co mparison. Ventricles are in proportion to any volume loss. Along the inner table right posterior jaimee a there is a 2 centimeter densely calcified mass. Size has not changed. Calcification has increased i n overall density since 2009. This is the typical aging process of a benign meningioma. This is unrel ated to the patient's symptoms. No new or localized mass effect. Mastoid air cells and visualized portions of the paranasal sinuses are clear. No acute bony findings. IMPRESSION: Mild atrophy and chronic ischemic change similar to comparison. Stable meningioma in the right posterior fossa. No acute intracranial finding.
--- NOTE | 2018-03-26 13:54 | RAD REPORT ---
EXAM DESCRIPTION: Felice Single View03/26/2018 1:23 pm CLINICAL HISTORY: Chest pain COMPARISON: January 2018 FINDINGS: The lungs appear clear of acute infiltrate. The heart is mildly enlarged IMPRESSION: No acute abnormalities displayed
--- NOTE | 2018-03-26 14:11 | RAD REPORT ---
EXAM DESCRIPTION: Vivek Angio03/26/2018 1:47 pm CLINICAL HISTORY: Blurred vision COMPARISON: None TECHNIQUE: 50 cc Isovue [address] angiogram neck was performed. Coronal and sagittal reconstruction was done. All CT scans are performed using dose optimization technique as appropriate and may include automated exposure control or mA/KV adjustment according to patient size. FINDINGS: Mild calcified plaque is present within carotid bulbs bilaterally. The common carotid, internal carotid and external carotids do not demonstrate a significant stenosis. A dissection is not seen The left vertebral artery is patent. Vertebral arteries are otherwise unremarkable IMPRESSION: Mild stenosis of the carotid bulbs bilaterally
--- NOTE | 2018-03-26 14:16 | RAD REPORT ---
EXAM DESCRIPTION: CTHead angio03/26/2018 1:47 pm CLINICAL HISTORY: Blurred vision COMPARISON: None TECHNIQUE: CT angiogram of the head was obtained. 50 cc Isovue 370 was intravenously. Coronal and sa gittal reconstruction was performed. All CT scans are performed using dose optimization technique as appropriate and may include automated exposure control or mA/KV adjustment according to patient size. FINDINGS: The basilar, internal carotid, anterior cerebral, middle cerebral and posterior cerebral a rteries are normal caliber. An aneurysm is not seen. A significant stenosis is not noted. IMPRESSION: Unremarkable CT angiogram head.
[2018-03-26] MEDS ORDERED: KETOROLAC 30 MG/ML INJ ONE (14:30)
--- NOTE | 2018-03-26 14:34 | ER ---
Nurse's Notes [facility] Name: Radha Ocampo Age: 77 yrs Sex: Female : 1940 Arrival Date: 03/26/2018 Time: 11:51 Bed 5 Private MD: Toby Parks V Diagnosis: Headache;Hypertension Presentation: 03/26 12:11 Presenting complaint: Patient states: had had headache for weeks to months, has been iw seen by Dr. Parks, recently started having double vision in her peripheral vision, headache has increased, also felt like her heart taws fluttering this morning, had nausea and neck pain. Transition of care: patient was not received from another setting of care. Onset of symptoms was October 2017. Risk Assessment: Do you want to hurt yourself or someone else? Patient reports no desire to harm self or others. Initial Sepsis Screen: Does the patient meet any 2 criteria? No. Patient's initial sepsis screen is negative. Does the patient have a suspected source of infection? No. Patient's initial sepsis screen is negative. Care prior to arrival: None. 12:11 Method Of Arrival: Wheelchair iw 12:11 Acuity: CIARA 3 iw Triage Assessment: 14:49 Pain: Pain began Also complains of nausea. iw 14:50 Headache History: The patient has had previous headaches and this one is similar to iw previous episodes. Historical: - Allergies: 12:16 meperidine HCl (rash); iw 12:16 Morphine; iw - Home Meds: 12:16 diltiazem HCl 180 mg Oral cpER 1 cap once daily [Active]; esomeprazole magnesium 40 mg iw oral cpDR 1 cap once daily [Active]; levothyroxine 75 mcg tab 1 tab once daily [Active]; losartan 100 mg oral tab 1 tab once daily [Active]; nitroglycerin 0.4 mg SL subl 1 tab every 5 minutes [Active]; oxcarbazepine 300 mg oral tab 1 tab 2 times per day [Active]; simvastatin 20 mg Oral tab 1 tab once daily [Active]; sertraline 100 mg oral tab 1 tab once daily [Active]; Valtrex 1 gram Oral tab only during ourbreak [Active]; aspirin 81 mg Oral TbEC 1 tab once daily [Active]; - PMHx: 12:16 Depression; Hyperlipidemia; Hypertension; Hypothyroidism; renal cell carcinoma iw contained; - PSHx: 12:16 Cholecystectomy; Hysterectomy; right kidney removal; Gastric Bypass; iw - Immunization history:: Adult Immunizations up to date. - Ebola Screening: : Patient negative for fever greater than or equal to 101.5 degrees Fahrenheit, and additional compatible Ebola Virus Disease symptoms Patient denies exposure to infectious person Patient denies travel to an Ebola-affected area in the 21 days before illness onset No symptoms or risks identified at this time. - Family history:: not pertinent. - Social history:: Smoking status: Patient/guardian denies using tobacco. - Hospitalizations: : No recent hospitalization is reported. Screenin:07 Abuse screen: Denies threats or abuse. Denies injuries from another. Nutritional iw screening: No deficits noted. Tuberculosis screening: No symptoms or risk factors identified. Fall Risk IV access (20 points). Assessment: 12:15 General: Appears in no apparent distress. uncomfortable, Behavior is cooperative. Pain: iw Complains of pain in head Pain does not radiate. Pain currently is 10 out of 10 on a pain scale. Pain: Complains of pain in neck. Neuro: Level of Consciousness is awake, alert, obeys commands, Oriented to person, place, time, situation, Manager Storage are equal bilaterally Moves all extremities. Full function Reports diplopia, headache. Cardiovascular: Capillary refill < 3 seconds in bilateral fingers Patient's skin is warm and dry. Respiratory: Respiratory effort is even, unlabored, Respiratory pattern is regular, symmetrical. GI: Abdomen is non-distended. Derm: Skin is pink, warm \T\ dry. normal. Musculoskeletal: Range of motion: intact in all extremities. 13:04 Reassessment: Patient appears in no apparent distress at this time. pt has had no iw relief from pain, still 10/10, ERP notified, family at bedside, still hypertensive at 224/86. 14:20 Reassessment: Patient and/or family updated on plan of care and expected duration. Pain iw level reassessed. BP has improved, Dr. Agrawal at bedside to assess pt. 14:40 Reassessment: Dr. Agrawal consulted with Dr. 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 Parks for steroids and pain medication, will also have prescription for Clonidine to take for hypertensive emergency. Vital Signs: 12:10 BP 225 / 91; Pulse 78; Resp 16; Temp 98.2; Pulse Ox 97% on R/A; Pain 9/10; iw 12:17 BP 201 / 86; Pulse 74; iw 13:07 BP 224 / 86; Pulse 71; iw 13:20 BP 190 / 72; Pulse 64; Resp 16; Pulse Ox 98% on R/A; iw 14:19 BP 157 / 70; Pulse 61; Resp 16 S; Pulse Ox 98% on R/A; iw Centre Coma Score: 14:31 Eye Response: spontaneous(4). Verbal Response: oriented(5). Motor Response: obeys rn commands(6). Total: 15. ED Course: 11:51 Patient arrived in ED. mr 11:51 Toby Parks MD is Private Physician. mr 11:55 Hiram Agrawal MD is Attending Physician. rn 12:03 Wood Posada RN is Primary Nurse. la1 12:14 Triage completed. iw 12:17 Arm band placed on. iw 12:25 Patient has correct armband on for positive identification. Placed in gown. Bed in low iw position. Side rails up X2. shelter monitor on. Pulse ox on. NIBP on. 12:25 Initial lab(s) drawn, by [facility], sent to lab. Inserted saline lock: 20 gauge in right iw antecubital area, using aseptic technique. Blood collected. 12:54 CT Head Brain wo Cont In Process Unspecified. EDMS 13:24 XRAY Chest (1 view) In Process Unspecified. EDMS 13:26 EKG done, by helpdesk technician. reviewed by Hiram Agrawal MD. sm3 13:47 Head angio In Process Unspecified. EDMS 13:47 Neck Angio In Process Unspecified. EDMS 14:33 Toby Parks MD is Referral Physician. rn 14:49 No provider procedures requiring assistance completed. IV discontinued, intact, iw bleeding controlled, No redness/swelling at site. Pressure dressing applied. Administered Medications: 12:35 Drug: Zofran 4 mg Route: IVP; Site: right antecubital; iw 13:14 Follow up: Response: No adverse reaction iw 12:35 Drug: NS 0.9% 500 ml Route: IV; Rate: bolus; Site: right antecubital; iw 13:35 Follow up: IV Status: Completed infusion iw 12:36 Drug: Reglan 10 mg Route: IVP; Site: right antecubital; iw 13:14 Follow up: Response: No adverse reaction; Pain is unchanged, physician notified iw 12:42 Drug: cloNIDine 0.2 mg Route: PO; iw 14:50 Follow up: Response: No adverse reaction; Blood pressure is lowered iw 14:33 Drug: TORadol 30 mg Route: IVP; Site: right antecubital; iw 14:50 Follow up: Response: No adverse reaction; Pain is decreased iw Outcome: 14:33 Discharge ordered by . rn 14:49 Discharged to home via wheelchair, with family. iw 14:49 Condition: good 14:49 Discharge instructions given to patient, family, Instructed on discharge instructions, follow up and referral plans. Demonstrated understanding of instructions, follow-up care. 14:57 Patient left the ED. iw Signatures: Dispatcher [employer] Courtney Herman Irene, RN CONCETTA iw Hiram Agrawal MD MD rn Attema, Lee, RN RN la1 Laura Valerio 3 Corrections: (The following items were deleted from the chart) 14:21 14:19 BP 157 / 70; Pulse 61bpm; iw iw
--- NOTE | 2018-03-26 14:34 | EDPHYS ---
Physician Documentation [facility] Name: Radha Ocampo Age: 77 yrs Sex: Female : 1940 Arrival Date: 03/26/2018 Time: 11:51 Bed 5 Private MD: Toby Parks V ED Physician Hiram Agrawal HPI: 03/26 12:40 This 77 yrs old Female presents to ER via Wheelchair with complaints of rn Headache, High Blood Pressure, Vomiting. 12:40 The patient complains of pain to the diffuse, worse over left side. The patient rn describes the headache as pounding. Onset: The symptoms/episode began/occurred weeks to months. Associated signs and symptoms: Pertinent positives: nausea, vomiting, Pertinent negatives: fever, neck stiffness, Photophobia sinus congestion, sinus tenderness, vision loss, vertigo. Severity of symptoms: At its worst the pain was moderate, in the emergency department the pain is unchanged. The patient has experienced similar episodes in the past. The patient has been recently seen by a physician:. Reports headaches for weeks-months, seen by pcp, prescribed steroids but hasn't taken them, pcp has concern for temporal arteritis. Patient reports intermittent double vision in periphery, no head trauma, no fever, no loss of vision, reports headache got worse this AM and noticed BP high, called pcp who directed her here. . Historical: - Allergies: 12:16 meperidine HCl (rash); iw 12:16 Morphine; iw - Home Meds: 12:16 diltiazem HCl 180 mg Oral cpER 1 cap once daily [Active]; esomeprazole magnesium 40 mg iw oral cpDR 1 cap once daily [Active]; levothyroxine 75 mcg tab 1 tab once daily [Active]; losartan 100 mg oral tab 1 tab once daily [Active]; nitroglycerin 0.4 mg SL subl 1 tab every 5 minutes [Active]; oxcarbazepine 300 mg oral tab 1 tab 2 times per day [Active]; simvastatin 20 mg Oral tab 1 tab once daily [Active]; sertraline 100 mg oral tab 1 tab once daily [Active]; Valtrex 1 gram Oral tab only during ourbreak [Active]; aspirin 81 mg Oral TbEC 1 tab once daily [Active]; - PMHx: 12:16 Depression; Hyperlipidemia; Hypertension; Hypothyroidism; renal cell carcinoma iw contained; - PSHx: 12:16 Cholecystectomy; Hysterectomy; right kidney removal; Gastric Bypass; iw - Immunization history:: Adult Immunizations up to date. - Ebola Screening: : Patient negative for fever greater than or equal to 101.5 degrees Fahrenheit, and additional compatible Ebola Virus Disease symptoms Patient denies exposure to infectious person Patient denies travel to an Ebola-affected area in the 21 days before illness onset No symptoms or risks identified at this time. - Family history:: not pertinent. - Social history:: Smoking status: Patient/guardian denies using tobacco. - Hospitalizations: : No recent hospitalization is reported. ROS: 12:40 Constitutional: Negative for fever, chills, and weight loss, Eyes: Negative for injury, rn pain, redness, and discharge, Neck: Negative for injury, pain, and swelling, Cardiovascular: Negative for palpitations, and edema, Respiratory: Negative for shortness of breath, cough, wheezing, and pleuritic chest pain, Abdomen/GI: Negative for abdominal pain, diarrhea, and constipation, MS/Extremity: Negative for injury and deformity, Skin: Negative for injury, rash, and discoloration, Neuro: Negative for weakness, numbness, tingling, and seizure. Exam: 12:40 Constitutional: This is a well developed, well nourished patient who is awake, alert, rn appears uncomfortable Head/Face: Normocephalic, atraumatic. Eyes: Pupils equal round and reactive to light, extra-ocular motions intact. Lids and lashes normal. Conjunctiva and sclera are non-icteric and not injected. Periorbital areas with no swelling, redness, or edema. ENT: MMM, mild tenderness over left temporal region Neck: Trachea midline, no thyromegaly or masses palpated, and no cervical lymphadenopathy. Supple, full range of motion without nuchal rigidity, or vertebral point tenderness. No Meningismus. Cardiovascular: Regular rate and rhythm with a normal S1 and S2. No gallops, murmurs, or rubs. Normal PMI, no JVD. No pulse deficits. Respiratory: Lungs have equal breath sounds bilaterally, clear to auscultation and percussion. No rales, rhonchi or wheezes noted. No increased work of breathing, no retractions or nasal flaring. Abdomen/GI: Soft, non-tender, with normal bowel sounds. No distension or tympany. No guarding or rebound. No evidence of tenderness throughout. MS/ Extremity: Pulses equal, no cyanosis. Neurovascular intact. Full, normal range of motion. Equal circumference. Neuro: Awake and alert, GCS 15, oriented to person, place, time, and situation. Cranial nerves II-XII grossly intact. Motor strength 5/5 in all extremities. Sensory grossly intact. Cerebellar exam normal. Vital Signs: 12:10 BP 225 / 91; Pulse 78; Resp 16; Temp 98.2; Pulse Ox 97% on R/A; Pain 9/10; iw 12:17 BP 201 / 86; Pulse 74; iw 13:07 BP 224 / 86; Pulse 71; iw 13:20 BP 190 / 72; Pulse 64; Resp 16; Pulse Ox 98% on R/A; iw 14:19 BP 157 / 70; Pulse 61; Resp 16 S; Pulse Ox 98% on R/A; iw Sanford Coma Score: 14:31 Eye Response: spontaneous(4). Verbal Response: oriented(5). Motor Response: obeys rn commands(6). Total: 15. MDM: 11:55 Patient medically screened. rn 12:39 ED course: PCP sent bloodwork, had elevated CRP but normal sed rate. . rn 14:31 Differential diagnosis: hypertensive headache, intracerebral hemorrhage, migraine, rn temporal arteritis, tension headache, trigeminal neuralgia, vasomotor headache. Data reviewed: vital signs, nurses notes, lab test result(s), EKG, radiologic studies, CT scan, and as a result, I will discharge patient. Counseling: I had a detailed discussion with the patient and/or guardian regarding: the historical points, exam findings, and any diagnostic results supporting the discharge/admit diagnosis, lab results, radiology results, the need for outpatient follow up, to return to the emergency department if symptoms worsen or persist or if there are any questions or concerns that arise at home. Response to treatment: the patient's symptoms have markedly improved after treatment, and as a result, I will discharge patient. Special discussion: I discussed with the patient/guardian in detail that at this point there is no indication for admission to the hospital. It is understood, however, that if the symptoms persist or worsen the patient needs to return immediately for re-evaluation. Based on the history and exam findings, there is no indication for further emergent testing or inpatient evaluation. I discussed with the patient/guardian the need to see the neurologist for further evaluation of the symptoms. I discussed with the patient/guardian the need to see the opthamologist for further evaluation of the symptoms. ED course: Pt BP improved to 157/70, CT head and angio head/neck no acute findings, trop normal, ECG without ischemia, will dc home as spoke with Dr Parks who prescribed steroids for possible temporal arteritis, has ophtho f/u, and states is going to last her in emergency clonidine.. 03/26 12:08 Order name: CBC with Diff; Complete Time: 13:20 rn 03/26 12:08 Order name: Basic Metabolic Panel; Complete Time: 13:01 rn 03/26 12:08 Order name: CT Head Brain wo Cont; Complete Time: 13:08 rn 03/26 12:08 Order name: Protime (+inr); Complete Time: 13:01 rn 03/26 12:08 Order name: Ptt, Activated; Complete Time: 13:01 rn 03/26 12:08 Order name: Troponin (emerg Dept Use Only); Complete Time: 13:01 rn 03/26 12:08 Order name: XRAY Chest (1 view); Complete Time: 14:17 rn 03/26 13:12 Order name: Head angio; Complete Time: 14:17 EDMS 03/26 13:12 Order name: Neck Angio; Complete Time: 14:17 EDMS 03/26 12:08 Order name: IV Start; Complete Time: 12:42 rn 03/26 12:08 Order name: EKG; Complete Time: 12:09 rn 03/26 12:08 Order name: EKG - Nurse/Tech; Complete Time: 13:14 rn Administered Medications: 12:35 Drug: Zofran 4 mg Route: IVP; Site: right antecubital; iw 13:14 Follow up: Response: No adverse reaction iw 12:35 Drug: NS 0.9% 500 ml Route: IV; Rate: bolus; Site: right antecubital; iw 13:35 Follow up: IV Status: Completed infusion iw 12:36 Drug: Reglan 10 mg Route: IVP; Site: right antecubital; iw 13:14 Follow up: Response: No adverse reaction; Pain is unchanged, physician notified iw 12:42 Drug: cloNIDine 0.2 mg Route: PO; iw 14:50 Follow up: Response: No adverse reaction; Blood pressure is lowered iw 14:33 Drug: TORadol 30 mg Route: IVP; Site: right antecubital; iw 14:50 Follow up: Response: No adverse reaction; Pain is decreased iw Disposition: 03/26/18 14:33 Discharged to Home. Impression: Headache, Hypertension. - Condition is Stable. - Discharge Instructions: General Headache Without Cause, Hypertension. - Medication Reconciliation Form, Thank You Letter, Antibiotic Education, Prescription Opioid Use form. - Follow up: Toby Parks MD; When: As needed; Reason: Recheck today's complaints, Re-evaluation by your physician. - Problem is an ongoing problem. - Symptoms have improved. Signatures: Dispatcher [employer] EDChey Moreland RN RN iw Hiram Agrawal MD MD rn Corrections: (The following items were deleted from the chart) 12:47 12:40 Constitutional: Negative for fever, chills, and weight loss, Eyes: Negative for rn injury, pain, redness, and discharge, Neck: Negative for injury, pain, and swelling, Cardiovascular: Negative for chest pain, palpitations, and edema, Respiratory: Negative for shortness of breath, cough, wheezing, and pleuritic chest pain, Abdomen/GI: Negative for abdominal pain, diarrhea, and constipation, MS/Extremity: Negative for injury and deformity, Skin: Negative for injury, rash, and discoloration, Neuro: Negative for weakness, numbness, tingling, and seizure, rn 14:57 14:33 03/26/2018 14:33 Discharged to Home. Impression: Headache; Hypertension. iw Condition is Stable. Forms are Medication Reconciliation Form, Thank You Letter, Antibiotic Education, Prescription Opioid Use. Follow up: Toby Parks; When: As needed; Reason: Recheck today's complaints, Re-evaluation by your physician. Problem is an ongoing problem. Symptoms have improved. rn
[2018-03-26 15:04] VITALS: TEMP 98.2
[2018-03-26 15:07] VITALS: O2SAT 98
[2018-03-26 15:08] VITALS: BP 157/70
--- NOTE | 2018-03-26 16:39 | EKG ---
Test Date: 2018-03-26 Test Time: 13:14:39 Wellness Specialist: JOSE MEASUREMENT RESULTS: Intervals: Rate: 67 AK: 174 QRSD: 86 QT: 426 QTc: 450 [place]: P: 54 AK: 174 QRS: 23 T: 80 INTERPRETIVE STATEMENTS: Normal sinus rhythm Normal ECG Compared to ECG 01/27/2018 12:04:52 T-wave abnormality no longer present Possible ischemia no longer present Prolonged QT interval no longer present Electronically Signed On 03-26-18 16:38:27 CDT by Kurtis Freeman
== END 2018-03-26 14:57 | disposition home or self-care (01) ==
LOC: ER 11:49
DX: R51 Headache (principal); Z88.5 Allergy status to narcotic agent; E78.5 Hyperlipidemia, unspecified; E03.9 Hypothyroidism, unspecified; I10 Essential (primary) hypertension; Z85.528 Personal history of other malignant neoplasm of kidney; Z90.5 Acquired absence of kidney; Z98.84 Bariatric surgery status
CPT/HCPCS: 36415; 70450; 70496; 70498; 71045; 80048; 84484; 85025; 85610; 85730; 93005; J2405; J2765; Q9967; 96361; 96374; 96375; 99284

== ENCOUNTER 2018-04-05 23:13 | Inpatient (IN) | payer OTHER ==
[2018-04-06] MEDS ORDERED: ASPIRIN 81 MG CHEWABLE TABLET ONE (00:12)
[2018-04-06] MEDS ORDERED: ONDANSETRON 4 MG/2 ML VIAL ONE (00:13)
[2018-04-06] MEDS ORDERED: FENTANYL CITR 100 MCG/2 ML ONE (00:13)
[2018-04-06 00:33] LABS: Absolute Lymphocytes (CBC) 1.1 K/uL (0.7-4.9); Absolute Neutrophil 9.2 K/uL (1.8-8.0); Basophils % 0.4 % (0-1.3); Eosinophils % 0.1 % (0-4.4); Hematocrit 43.1 % (36.0-45.0); Lymphocytes % 9.3 % (15.3-44.8); MPV 8.3 fL (7.6-11.3); RBC Red Blood Cell Count 5.06 M/uL (3.86-4.86)
[2018-04-06 00:34] LABS: Protime INR 0.94
[2018-04-06 00:49] LABS: Albumin 3.4 g/dL (3.4-5.0); Bilirubin Direct 0.3 mg/dL (0-0.2); Bilirubin Total 0.7 mg/dL (0.2-1.0); CKMB Creatine Kinase MB 1.4 ng/mL (0.3-3.6); Magnesium 1.7 mg/dL (1.8-2.4); Potassium 4.5 mmol/L (3.5-5.1); Protein, Total 6.6 g/dL (6.4-8.2)
[2018-04-06] MEDS ORDERED: NA CHLORIDE 0.9% 1,000 ML ONE (01:11)
[2018-04-06] MEDS ORDERED: ACETAMINOPHEN 500 MG TAB PO PRN (02:36)
[2018-04-06] MEDS ORDERED: MORPHINE 4 MG/ML SYR IV PRN (02:36)
[2018-04-06] MEDS ORDERED: ONDANSETRON 4 MG/2 ML VIAL IV PRN (02:36)
--- NOTE | 2018-04-06 02:36 | EDPHYS ---
Physician Documentation [facility] Name: Radha Ocampo Age: 77 yrs Sex: Female : 1940 Arrival Date: 04/05/2018 Time: 23:13 Bed 8 Private MD: ED Physician Herbert Langston HPI: 04/06 00:33 This 77 yrs old Female presents to ER via Wheelchair with complaints of Chest ps1 Pain. 00:33 patient has history of head and neck pain. 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 ps1 She states that she was recently treated for UTI and off ABX yesterday. Cefuroxime. 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 Managed by Pete. She now has chest pain, reproducible associated with nausea and vomiting which started earlier in the day. Pain rated as moderate to severe. . Historical: - Allergies: 04/05 23:37 meperidine HCl (rash); aa1 23:37 Morphine; aa1 - Home Meds: 23:37 aspirin 81 mg Oral TbEC 1 tab once daily [Active]; diltiazem HCl 180 mg Oral cpER 1 cap aa1 once daily [Active]; esomeprazole magnesium 40 mg Oral cpDR 1 cap once daily [Active]; levothyroxine 75 mcg tab 1 tab once daily [Active]; losartan 100 mg Oral tab 1 tab once daily [Active]; nitroglycerin 0.4 mg SL subl 1 tab every 5 minutes [Active]; oxcarbazepine 300 mg Oral tab 1 tab 2 times per day [Active]; sertraline 100 mg Oral tab 1 tab once daily [Active]; simvastatin 20 mg Oral tab 1 tab once daily [Active]; Valtrex 1 gram Oral tab only during ourbreak [Active]; - PMHx: 23:37 Depression; Hyperlipidemia; Hypertension; Hypothyroidism; renal cell carcinoma aa1 contained; - PSHx: 23:37 Cholecystectomy; Hysterectomy; right kidney removal; Gastric Bypass; aa1 - Immunization history:: Flu vaccine is up to date. - Social history:: Smoking status: Patient/guardian denies using tobacco. - Ebola Screening: : No symptoms or risks identified at this time. ROS: 04/06 06:09 Constitutional: Negative for fever, chills, and weight loss. ps1 ENT: Negative for injury, pain, and discharge, Respiratory: Negative for shortness of breath, cough, wheezing, and pleuritic chest pain, Abdomen/GI: Negative for abdominal pain, nausea, vomiting, diarrhea, and constipation, Skin: Negative for injury, rash, and discoloration. Constitutional: Positive for fatigue. Cardiovascular: Positive for chest pain. MS/extremity: Positive for tenderness. Exam: 06:10 Constitutional: This is a well developed, well nourished patient who is awake, alert, ps1 and in no acute distress. Head/Face: Normocephalic, atraumatic. Chest/axilla: Normal chest wall appearance and motion. Nontender with no deformity. No lesions are appreciated. Cardiovascular: Regular rate and rhythm. No gallops, murmurs, or rubs. Normal PMI, no JVD. No pulse deficits. Respiratory: Lungs have equal breath sounds bilaterally, clear to auscultation and percussion. No rales, rhonchi or wheezes noted. No increased work of breathing, no retractions or nasal flaring. Back: No spinal tenderness. No costovertebral tenderness. Full range of motion. MS/ Extremity: Pulses equal, no cyanosis. Neurovascular intact. Full, normal range of motion. Neuro: Awake and alert, GCS 15, oriented to person, place, time, and situation. Cranial nerves II-XII grossly intact. Sensory grossly intact. Psych: Awake, alert, with orientation to person, place and time. Behavior, mood, and affect are within normal limits. Vital Signs: 04/05 23:37 BP 199 / 77; Pulse 68; Resp 20; Temp 97.6; Pulse Ox 99% on R/A; Weight 65.77 kg; Height aa1 5 ft. 0 in. (152.40 cm); Pain 05/27; 23:48 BP 171 / 64; Pulse 62; Resp 18; Pulse Ox 98% on R/A; aa1 04/06 00:22 BP 171 / 72; Pulse 54; Resp 18; Pulse Ox 98% on R/A; aa1 01:21 BP 184 / 68; Pulse 53; Resp 18; Pulse Ox 97% on R/A; tl2 02:00 BP 190 / 68; Pulse 52; Resp 16; Pulse Ox 98% on R/A; aa1 02:30 BP 215 / 77; Pulse 54; Resp 16; Pulse Ox 99% on R/A; aa1 03:00 BP 162 / 57; Pulse 70; Resp 16; Pulse Ox 99% on R/A; aa1 03:39 BP 148 / 84; Pulse 68; Resp 16; Pulse Ox 99% on R/A; aa1 04/05 23:37 Body Mass Index 28.32 (65.77 kg, 152.40 cm) aa1 Sanford Coma Score: 01:37 Eye Response: spontaneous(4). Verbal Response: oriented(5). Motor Response: obeys tl2 commands(6). Total: 15. MDM: 00:23 Patient medically screened. ps1 06:12 Data reviewed: vital signs, nurses notes, lab test result(s), EKG, radiologic studies, ps1 and as a result, I will admit patient, administer IV fluids. Admission orders: after a detailed discussion of the patient's condition and case, the admit orders are written by me. 04/06 00:05 Order name: Basic Metabolic Panel; Complete Time: :04/06 00:05 Order name: CBC with Diff; Complete Time: :04/06 00:05 Order name: Ckmb; Complete Time: :04/06 00:05 Order name: CPK; Complete Time: :04/06 00:05 Order name: LFT's; Complete Time: :04/06 00:05 Order name: Magnesium; Complete Time: :04/06 00:05 Order name: NT PRO-BNP; Complete Time: :04/06 00:05 Order name: PT-INR; Complete Time: :04/06 00:05 Order name: Ptt, Activated; Complete Time: :04/06 00:05 Order name: Troponin (emerg Dept Use Only); Complete Time: 01: bb 04/06 02:35 Order name: Urine Dipstick--Ancillary (enter results); Complete Time: 04:25 ms 04/06 02:39 Order name: Basic Metabolic Panel EDMS 04/06 02:39 Order name: Basic Metabolic Panel EDMS 04/06 02:39 Order name: CBC with Automated Diff EDMS 04/06 00:05 Order name: XRAY Chest (1 view) bb 04/06 00:05 Order name: EKG; Complete Time: 00:06 04/06 02:39 Order name: CONS Physician Consult EDMS 04/06 02:39 Order name: CBC with Automated Diff EDMS 04/06 02:39 Order name: Troponin I EDMS 04/06 02:39 Order name: Troponin I; Complete Time: 05:37 EDMS 04/06 02:39 Order name: Troponin I EDMS 04/06 07:48 Order name: UR SODIUM EDMS 04/06 00:05 Order name: Cardiac monitoring; Complete Time: 00:08 04/06 00:05 Order name: EKG - Nurse/Tech; Complete Time: 00:08 bb 04/06 00:05 Order name: IV Saline Lock; Complete Time: 00:09 04/06 00:05 Order name: Labs collected and sent; Complete Time: 00:10 04/06 00:05 Order name: O2 Per Protocol; Complete Time: 00:12 bb 04/06 00:05 Order name: O2 Sat Monitoring; Complete Time: 00:12 04/06 00:05 Order name: Urine Dipstick-Ancillary (obtain specimen); Complete Time: 03:43 04/06 02:39 Order name: Regular EDMS 04/06 02:39 Order name: EKG Electrocardiogram EDPA 04/06 02:39 Order name: EKG Electrocardiogram EDPA 04/06 02:39 Order name: EKG Electrocardiogram EDPA 04/06 02:39 Order name: EKG Electrocardiogram EDPA EC/19 23:20 Rate is 64 beats/min. Rhythm is regular. QRS [place] is Normal. HI interval is normal. QRS ps1 interval is normal. QT interval is normal. T waves are Flattened in leads I, aVL. No ST changes noted. Clinical impression: NSR w/ Non-specific ST/T Changes. Interpreted by me. Administered Medications: 04/06 00:10 Drug: Zofran 4 mg Route: IVP; Site: right antecubital; aa1 01:04 Follow up: Response: No adverse reaction; Nausea is decreased tl2 00:10 Drug: Aspirin Chewable Tablet 324 mg Route: PO; aa1 01:05 Follow up: Response: No adverse reaction tl2 00:12 Drug: fentaNYL (PF) 25 mcg Route: IVP; Site: right antecubital; aa1 01:04 Follow up: Response: No adverse reaction; Pain is unchanged, physician notified tl2 00:50 Drug: fentaNYL (PF) 75 mcg Route: IVP; Site: right antecubital; tl2 01:50 Follow up: Response: No adverse reaction; Pain is decreased aa1 01:09 Drug: NS 0.9% 1000 ml Route: IV; Rate: 100 ml/hr; Site: right antecubital; tl2 03:42 Follow up: IV Status: Infusion continued upon admission aa1 02:45 Drug: hydrALAZINE 10 mg Route: IV; Rate: bolus; Site: right antecubital; aa1 02:50 Follow up: Response: Blood pressure is lowered; IV Status: Completed infusion aa1 03:15 Drug: morphine 4 mg Route: IVP; Site: right antecubital; aa1 04:00 Follow up: Response: No adverse reaction; Pain is decreased aa1 03:15 Drug: Benadryl 25 mg Route: IVP; Site: right antecubital; aa1 05:25 Follow up: Response: No adverse reaction aa1 Disposition: 04/06/18 02:35 Hospitalization ordered by Toby Parks for Inpatient Admission. Preliminary diagnosis are Hyponatremia, Chest pain. - Bed requested for Intensive Care Unit. - Status is Inpatient Admission. sv - Condition is Serious. - Problem is new. - Symptoms have improved. UTI on Admission? No Signatures: Dispatcher [employer] ED Will Mcclendon rg2 Naye Colon RN RN sv K[place], Alissa RN RN aa1 Shandra Begum RN RN bb [place], Taylor, RN RN tl2 Herbert Langston MD MD ps1 Corrections: (The following items were deleted from the chart) 06:24 02:35 Hospitalization Ordered by Toby Parks MD for Inpatient Admission. Preliminary rg2 diagnosis is Hyponatremia; Chest pain. Bed requested for Intensive Care Unit. Status is Inpatient Admission. Condition is Serious. Problem is new. Symptoms have improved. UTI on Admission? No. ps1 08:09 06:24 04/06/2018 02:35 Hospitalization Ordered by Toby Praks MD for Inpatient sv Admission. Preliminary diagnosis is Hyponatremia; Chest pain. Bed requested for Intensive Care Unit. Status is Inpatient Admission. Condition is Serious. Problem is new. Symptoms have improved. UTI on Admission? No. rg2
--- NOTE | 2018-04-06 02:36 | ER ---
Nurse's Notes [facility] Name: Radha Ocampo Age: 77 yrs Sex: Female : 1940 Arrival Date: 04/05/2018 Time: 23:13 Bed 8 Private MD: Diagnosis: Hyponatremia;Chest pain Presentation: 04/05 23:32 Presenting complaint: Patient states: headache, neck pain, and CP x 2-3 weeks but aa1 reports her pain became significantly worse tonight. Also c/o nausea. Transition of care: patient was not received from another setting of care. Onset of symptoms was March 2018. Risk Assessment: Do you want to hurt yourself or someone else? Patient reports no desire to harm self or others. Initial Sepsis Screen: Does the patient meet any 2 criteria? No. Patient's initial sepsis screen is negative. Does the patient have a suspected source of infection? No. Patient's initial sepsis screen is negative. Care prior to arrival: None. 23:32 Method Of Arrival: Wheelchair aa1 23:32 Acuity: CIARA 3 aa1 Historical: - Allergies: 23:37 meperidine HCl (rash); aa1 23:37 Morphine; aa1 - Home Meds: 23:37 aspirin 81 mg Oral TbEC 1 tab once daily [Active]; diltiazem HCl 180 mg Oral cpER 1 cap aa1 once daily [Active]; esomeprazole magnesium 40 mg Oral cpDR 1 cap once daily [Active]; levothyroxine 75 mcg tab 1 tab once daily [Active]; losartan 100 mg Oral tab 1 tab once daily [Active]; nitroglycerin 0.4 mg SL subl 1 tab every 5 minutes [Active]; oxcarbazepine 300 mg Oral tab 1 tab 2 times per day [Active]; sertraline 100 mg Oral tab 1 tab once daily [Active]; simvastatin 20 mg Oral tab 1 tab once daily [Active]; Valtrex 1 gram Oral tab only during ourbreak [Active]; - PMHx: 23:37 Depression; Hyperlipidemia; Hypertension; Hypothyroidism; renal cell carcinoma aa1 contained; - PSHx: 23:37 Cholecystectomy; Hysterectomy; right kidney removal; Gastric Bypass; aa1 - Immunization history:: Flu vaccine is up to date. - Social history:: Smoking status: Patient/guardian denies using tobacco. - Ebola Screening: : No symptoms or risks identified at this time. Screenin:35 Abuse screen: Denies threats or abuse. Denies injuries from another. Nutritional aa1 screening: No deficits noted. Tuberculosis screening: No symptoms or risk factors identified. Fall Risk None identified. Assessment: 23:35 General: Appears in no apparent distress. comfortable, Behavior is calm, cooperative, aa1 appropriate for age. Pain: Complains of pain in scalp, chest and neck Pain currently is 10 out of 10 on a pain scale. Quality of pain is described as aching, throbbing, Pain began 2-3 weeks ago Is continuous. Neuro: Level of Consciousness is awake, alert, obeys commands, Oriented to person, place, time, situation, Moves all extremities. Full function Gait is steady, Speech is normal, Facial symmetry appears normal, Pupils are PERRLA, Reports headache in entire parietal area, frontal area, occipital area. Cardiovascular: Reports chest pain, nausea, Denies diaphoresis, palpitations, Heart tones S1 S2 present Capillary refill < 3 seconds Patient's skin is warm and dry. Rhythm is regular. Respiratory: Airway is patent Respiratory effort is even, unlabored, Respiratory pattern is regular, symmetrical. GI: Abdomen is non-distended, Reports nausea. : No signs and/or symptoms were reported regarding the genitourinary system. EENT: No signs and/or symptoms were reported regarding the EENT system. Derm: Skin is intact, is healthy with good turgor, Skin is pink, warm \T\ dry. Musculoskeletal: Circulation, motion, and sensation intact. Capillary refill < 3 seconds. 04/06 00:22 Reassessment: Patient appears in no apparent distress at this time. Patient and/or aa1 family updated on plan of care and expected duration. Pain level reassessed. Patient is alert, oriented x 3, equal unlabored respirations, skin warm/dry/pink. Pt still awaiting initial assessment from provider. 02:09 Reassessment: Patient appears in no apparent distress at this time. Patient and/or aa1 family updated on plan of care and expected duration. Pain level reassessed. Patient is alert, oriented x 3, equal unlabored respirations, skin warm/dry/pink. Awaiting admission orders. 02:35 Reassessment: Patient appears in no apparent distress at this time. Patient and/or aa1 family updated on plan of care and expected duration. Pain level reassessed. Patient is alert, oriented x 3, equal unlabored respirations, skin warm/dry/pink. Notified MD of increasing BP; medicated per MD orders. 03:15 Reassessment: Patient appears in no apparent distress at this time. Patient and/or aa1 family updated on plan of care and expected duration. Pain level reassessed. Patient is alert, oriented x 3, equal unlabored respirations, skin warm/dry/pink. Pt requesting more pain medication. Pt states she has a morphine allergy but the only reaction she has is a localized rash. MD informed pt we can try giving her Morphine with Benadryl to see if that will help control her pain since the Fentanyl is not lasting long enough. Pt and family verbalize understanding and would like to try the Morphine. 04:00 Reassessment: Patient appears in no apparent distress at this time. Patient and/or aa1 family updated on plan of care and expected duration. Pain level reassessed. Patient is alert, oriented x 3, equal unlabored respirations, skin warm/dry/pink. Pt to be ER hold, documentation will be continued in [facility]. Vital Signs: 04/05 23:37 BP 199 / 77; Pulse 68; Resp 20; Temp 97.6; Pulse Ox 99% on R/A; Weight 65.77 kg; Height aa1 5 ft. 0 in. (152.40 cm); Pain 10/10; 23:48 BP 171 / 64; Pulse 62; Resp 18; Pulse Ox 98% on R/A; aa1 04/06 00:22 BP 171 / 72; Pulse 54; Resp 18; Pulse Ox 98% on R/A; aa1 01:21 BP 184 / 68; Pulse 53; Resp 18; Pulse Ox 97% on R/A; tl2 02:00 BP 190 / 68; Pulse 52; Resp 16; Pulse Ox 98% on R/A; aa1 02:30 BP 215 / 77; Pulse 54; Resp 16; Pulse Ox 99% on R/A; aa1 03:00 BP 162 / 57; Pulse 70; Resp 16; Pulse Ox 99% on R/A; aa1 03:39 BP 148 / 84; Pulse 68; Resp 16; Pulse Ox 99% on R/A; aa1 04/05 23:37 Body Mass Index 28.32 (65.77 kg, 152.40 cm) aa1 Sanford Coma Score: 01:37 Eye Response: spontaneous(4). Verbal Response: oriented(5). Motor Response: obeys tl2 commands(6). Total: 15. ED Course: 04/05 23:13 Patient arrived in ED. am2 23:33 Triage completed. aa1 23:35 Patient has correct armband on for positive identification. Placed in gown. Bed in low aa1 position. Call light in reach. Side rails up X2. gambling monitor on. Pulse ox on. NIBP on. Warm blanket given. Pillow given. 23:35 EKG done, by ED staff, reviewed by Herbert Langston MD. aa1 23:37 Arm band placed on right wrist. Patient placed in an exam room, on a stretcher. aa1 23:46 Kamryn Demarco, CONCETTA is Primary Nurse. aa1 23:46 Initial lab(s) drawn, by ED staff, sent to lab. Inserted saline lock: 20 gauge in right aa1 antecubital area, using aseptic technique. ,using aseptic technique. by eulalio Zuniga Blood collected. Patient maintains SpO2 saturation greater than 95% on room air. 04/06 00:10 Herbert Langston MD is Attending Physician. ps1 00:23 X-ray completed. Portable x-ray completed in exam room. Patient tolerated procedure kw well. 00:24 XRAY Chest (1 view) In Process Unspecified. EDMS 00:57 Notified ED physician of a critical lab result(s). Na of 117, Cl 81, Dr Langston notified.bb 01:37 Seizure precautions initiated. tl2 02:30 Urine collected: clean catch specimen. aa1 02:35 Toby Parks MD is Hospitalizing Provider. ps1 03:44 No provider procedures requiring assistance completed. Patient admitted, IV remains in aa1 place. 04:10 Pillow given. jd3 Administered Medications: 00:10 Drug: Zofran 4 mg Route: IVP; Site: right antecubital; aa1 01:04 Follow up: Response: No adverse reaction; Nausea is decreased tl2 00:10 Drug: Aspirin Chewable Tablet 324 mg Route: PO; aa1 01:05 Follow up: Response: No adverse reaction tl2 00:12 Drug: fentaNYL (PF) 25 mcg Route: IVP; Site: right antecubital; aa1 01:04 Follow up: Response: No adverse reaction; Pain is unchanged, physician notified tl2 00:50 Drug: fentaNYL (PF) 75 mcg Route: IVP; Site: right antecubital; tl2 01:50 Follow up: Response: No adverse reaction; Pain is decreased aa1 01:09 Drug: NS 0.9% 1000 ml Route: IV; Rate: 100 ml/hr; Site: right antecubital; tl2 03:42 Follow up: IV Status: Infusion continued upon admission aa1 02:45 Drug: hydrALAZINE 10 mg Route: IV; Rate: bolus; Site: right antecubital; aa1 02:50 Follow up: Response: Blood pressure is lowered; IV Status: Completed infusion aa1 03:15 Drug: morphine 4 mg Route: IVP; Site: right antecubital; aa1 04:00 Follow up: Response: No adverse reaction; Pain is decreased aa1 03:15 Drug: Benadryl 25 mg Route: IVP; Site: right antecubital; aa1 05:25 Follow up: Response: No adverse reaction aa1 Outcome: 02:35 Decision to Hospitalize by Provider. ps1 04:00 Admitted to ER Hold. Please see [facility] for further documentation. aa1 04:00 Condition: stable 04:00 Instructed on the need for admit, Demonstrated understanding of instructions. 08:09 Patient left the ED. sv Signatures: Dispatcher [employer] EDMS Naye Colon RN RN sv Kern, Alissa, RN RN aa1 Shandra Begum RN RN bb Whitley, Kimberlee kw Knox, Taylor, RN RN tl2 Saira Chahal Jonathon, RN RN jd3 Singer, Phillip, MD MD ps1 Corrections: (The following items were deleted from the chart) 02:15 08 23:35 EKG done, by ED staff, reviewed by Kamryn Demarco RN aa1 aa04/06 02:44 02:42 Reassessment: Patient appears in no apparent distress at this time. Patient aa1 and/or family updated on plan of care and expected duration. Pain level reassessed. Patient is alert, oriented x 3, equal unlabored respirations, skin warm/dry/pink. Notified MD of increasing BP; medicated per MD orders aa1
[2018-04-06] MEDS ORDERED: HYDRALAZINE HCL 20 MG/ML VIAL ONE (02:38)
[2018-04-06] MEDS ORDERED: DIPHENHYDRAMINE 50 MG/ML VIAL ONE (03:15)
[2018-04-06] MEDS ORDERED: MORPHINE 4 MG/ML SYR ONE ×2 (03:15→07:40)
[2018-04-06 03:59] LABS: Urine Blood 1+ (NEG); Urine Glucose NEGATIVE (NEG); Urine Protein NEGATIVE (NEG); Urine Specific Gravity 1.015 (1.005-1.030)
--- NOTE | 2018-04-06 07:48 | RAD REPORT ---
EXAM DESCRIPTION: Felice Single View04/06/2018 12:23 am CLINICAL HISTORY: Chest pain COMPARISON: March 26, 2018 FINDINGS: The lungs appear clear of acute infiltrate. The heart is mildly enlarged. A small left me dial diaphragmatic hernia is present IMPRESSION: No acute abnormalities displayed
--- NOTE | 2018-04-06 07:50 | EKG ---
Test Date: 2018-04-05 Test Time: 23:20:53 Fireproof Door Maker: WARREN MEASUREMENT RESULTS: Intervals: Rate: 64 MO: 166 QRSD: 88 QT: 396 QTc: 408 [place]: P: 73 MO: 166 QRS: 15 T: 76 INTERPRETIVE STATEMENTS: Normal sinus rhythm Nonspecific ST and T wave abnormality Abnormal ECG Compared to ECG 03/26/2018 13:14:39 ST (T wave) deviation now present Electronically Signed On 04-06-18 07:49:35 CDT by Kurtis Freeman
[2018-04-06] MEDS: LIDOCAINE 5% PATCH TOP SCH (08:36)
[2018-04-06] MEDS ORDERED: ASPIRIN EC 81 MG TAB PO SCH (09:00)
[2018-04-06] MEDS ORDERED: NITROGLYCERIN 0.4 MG/TAB SL PRN (11:51)
[2018-04-06 12:14] LABS: Potassium 4.6 mmol/L (3.5-5.1)
[2018-04-06] MEDS: cloNIDine HCl 0.1 MG TAB PO SCH ×2 (12:36→20:07)
[2018-04-06] MEDS: FENTANYL CITR 100 MCG/2 ML IV PRN ×4 (12:36→21:20)
--- NOTE | 2018-04-06 14:59 | CON ---
History Of Present Illness: Mrs. Ocampo is in the hospital because of feeling weak. She has been f ound to have a sodium of 117 and it looks like she has had poor oral intake. She is complaining of a lot of pain. The pain is mostly in the neck. There has been a CT scan of the neck. The main focus of the scan was arteries with a CT angio that was done about 2 weeks ago. It was just mild stenosis . No significant stenosis. Mild plaque of the carotid arteries. No other comments were made. I am not sure if we could really make a comment on the neck itself. There was a brain MRI done. Her sod ium was slightly low just a few weeks ago and now it is 117. Apparently, her oral intake is minimal. She has vomited, had a little diarrhea. There is a 20 mm low signal mass abutting the right tentor ium. It looks like a meningioma on the MRI. She has not had chest pain. It was in January of this yea r that she had chest pain. We did a cardiac cath. Her coronary arteries were normal, but there was enzyme and left ventriculogram evidence of an apical ballooning ND. Since then she has been on Cardi zem. She is not on any diuretic. Physical Examination: General: The patient appears elderly, depressed. She is in distress from pain. She actually compla ins of no chest pain at all to me. It is all up in the neck. Allergies: SHE IS ALLERGIC TO MEPERIDINE AND MORPHINE. Medications: Outpatient medications have been levothyroxine, aspirin losartan, sertraline, cranberry , cholecalciferol, prednisone, atorvastatin, Trileptal, nitroglycerin, esomeprazole, diltiazem, and c lonidine. Impression: The patient's sodium is extremely low. I am not sure if Trileptal might be a cause. Th ere is no diuretic. There is poor oral intake that could cause it. If it is severe enough, her gi melissa, who sees everything the patient eats, is going to provide a diary of intake, so we can may be see if that is the real explanation. The cause of the pain in her neck and the cause of hyponatre claudia is unknown. We know her coronary arteries are in good shape. There is no enzyme evidence of ano ther apical ballooning ND. I think that sounds at all remotely like acute coronary syndrome. I woul d think an MRI of the cervical spine might be in order while we try and correct her sodium intake and figure out why it is so low. FIDE Voice ID: [id number] Report ID: [id number]
[2018-04-06 17:38] LABS: Potassium 5.5 mmol/L (3.5-5.1)
--- NOTE | 2018-04-06 17:47 | P.HP ---
Certification for Inpatient Patient admitted to: Inpatient With expected LOS: >2 Midnights Practitioner: I am a practitioner with admitting privileges, knowledge of patient current condition, hospital course, and medical plan of care. Services: Services provided to patient in accordance with Admission requirements found in Title 42 Section 412.3 of the Code of Federal Regulations Patient History Date of Service: 04/06/18 Reason for admission: NECK PAIN, NAUSEA AND VOMITING History of Present Illness: MS. WELLER HAS HAD HEADACHES, WITH DIPLOPIA FEW DAYS AGO. SHE IS TO SEE DR. SELBY FOR POSSIBLE TA AND SHE HAD DOUBLE VISION I STARTED HER ON PREDNISONE 20 MG POBID FOR POSSIBLE. TA. SHE REPORTS TO ER WITH SEVERE NECK PAIN THAT IS WORSE THAN SHE HAS HAD LATELY. SHE ALSO HAS NAUSEA AND VOMITING. SHE DRINKS 3-4 LARGE JUGS OF WATER DAILY. Allergies meperidine HCl [From Demerol] Allergy (Verified 03/30/17 20:38) Unknown Morphine Allergy (Uncoded 03/30/17 20:38) Unknown Home Medications: Aspirin 1 pill PO DAILY 03/30/17 Levothyroxine [Synthroid*] 75 mcg PO DAILY 03/30/17 Losartan Potassium [Cozaar] 100 mg PO DAILY 03/31/17 Cholecalciferol (Vitamin D3) [Vitamin D3] 1 cap PO DAILY 01/26/18 Cranberry Conc/C/Bacill Coag [Cranberry Tablet] 4,200 mg PO DAILY 01/26/18 Sertraline [Zoloft*] 100 mg PO DAILY 01/26/18 Atorvastatin Calcium [Lipitor] 10 mg PO BEDTIME 04/06/18 Clonidine HCl [Catapres] 0.1 mg PO TID 04/06/18 Diltiazem HCl [Cardizem LA] 180 mg PO DAILY 04/06/18 Esomeprazole Mag Trihydrate [Nexium] 40 mg PO DAILY 04/06/18 Nitroglycerin [Nitrostat] 0.4 mg SL PRN PRN 04/06/18 Oxcarbazepine [Trileptal] 300 mg PO BID 04/06/18 predniSONE [Deltasone] 20 mg PO BID 04/06/18 - Past Medical/Surgical History Has patient received pneumonia vaccine in the past: Yes Diabetic: No -: Herpes -: Hyopthyroidisim -: Hypertension -: High Cholesterol -: Depression -: GERD -: Arthritis pain -: Kidney Cancer -: Nephrectomy Right -: gastric bypass -: Hysteroctomy -: Hernia Repair - Social History Smoking Status: Never smoker Alcohol use: No CD- Drugs: No Caffeine use: No Place of Residence: Home Review of Systems 10-point ROS is otherwise unremarkable General: Weakness, Malaise Neurological: As per HPI Physical Examination - Vital Signs Temperature: 97.0 F Blood Pressure: 160/59 Pulse: 62 Respirations: 12 Pulse Ox (%): 98 - Physical Exam General: Alert, Moderate distress, Obese HEENT: Atraumatic, PERRLA, Mucous membr. moist/pink, EOMI, Sclerae nonicteric Neck: Supple, 2+ carotid pulse no bruit, No LAD, Without JVD or thyroid abnormality Respiratory: Clear to auscultation bilaterally, Normal air movement Cardiovascular: Regular rate/rhythm, Normal S1 S2 Gastrointestinal: Normal bowel sounds, No tenderness Musculoskeletal: No tenderness Integumentary: No rashes Neurological: Normal speech, Normal strength at 5/5 x4 extr, Normal affect Lymphatics: No axilla or inguinal lymphadenopathy - Studies Laboratory Data (last 24 hrs) 04/06/18 00:00: PT 11.1, INR 0.94, APTT 22.8 L 04/06/18 00:00: WBC 11.3 H D, Hgb 15.2 H, Hct 43.1, Plt Count 301 D 04/06/18 00:00: Sodium 117 L*, Potassium 4.5, BUN 21 H, Creatinine 0.80, Glucose 139 H, Magnesium 1.7 L, Total Bilirubin 0.7, AST 16, ALT 22, Alkaline Phosphatase 84 Assessment and Plan - Problems (Diagnosis) (1) Chronic headaches Current Visit: Yes Status: Chronic Plan: HAS BEEN TO NEUROLOGIST HER NECK HAS SEVERE NECK PAIN, ARTHRITIS AND NERVE COMPRESSION ON MRI. PREDNISONE IS NOT HELPING. SHE CAN'T TAKE NARCOTICS WELL WILL TRY GABAPENTENE. (2) Neck pain Current Visit: Yes Status: Chronic Plan: ABOVE. (3) Hyponatremia Onset Date: 01/27/18 Current Visit: No Status: Acute Plan: SODIUM WAS 133 JUST TWO WEEKS AGO. SHE HAS BEEN DRINKING LOT OF WATER. SHE ALSO IS ON TRILEPTAL FOR LONG DURATION FOR FACIAL TWITCHING BUT HAS NOT HAD LOW SODIUM UNTIL NOW. I WILL HOLD TRILEPTAL IT CAN GIVE RISE TO SIADH. HER LAB PICTURE FAVORS SIADH WITH LOW S OSM. HIGH U OSM AND HIGH URINE SODIUM. FLUID RESTICTION HAS IMPROVED SODIUM TO 120 NOW (4) Temporal arteritis Current Visit: Yes Status: Chronic Plan: THIS IS LIKELY WILL CONSULT DR. LEROY FOR TA BX BUT HER CONDITION CURRENTLY WILL NOT ALLOW HIM TO DO SURGERY. - Advance Directives Does patient have a Living Will: No Does patient have a Durable POA for Healthcare: No
[2018-04-06] MEDS: ATORVASTATIN 10 MG TAB PO SCH (20:08)
[2018-04-06] MEDS ORDERED: predniSONE 20 MG TAB PO SCH (21:00)
--- NOTE | 2018-04-06 22:32 | RAD REPORT ---
EXAM DESCRIPTION: MRI - C Spine Wo Cont- 04/06/2018 10:22 pm CLINICAL HISTORY: SEVERE NECK PAIN Radiculopathy COMPARISON: Neck Angio dated 03/26/2018 FINDINGS: Cervical vertebral bodies are normal in height and alignment. No suspicious marrow edema or marrow replacing process. No fracture or traumatic subluxation. The craniocervical junction is normal. C2-3 level: Mild uncovertebral spurring is present on the right mildly narrowing the right exit emre en. C3-4 level: Mild facet hypertrophy is present mildly narrowing the left exit foramen. C4-5 level: 2 mm central disc herniation is seen mildly attenuating the anterior subarachnoid space. Right-sided uncovertebral facet spurring is noted narrowing the right exit foramen. C5-6 level: Posterior osteophyte/ disc complex is present attenuating the anterior subarachnoid space . Right-sided uncovertebral spurring is noted resulting in right exit foraminal stenosis. C6-7 level: Small posterior osteophyte/ disc complex is present. Right-sided uncovertebral spurring i s noted mildly narrowing the right exit foramen. C7-T1 level: No significant findings. Cervical cord is normal in size and signal. IMPRESSION: Mild lower cervical spondylosis is present as described.
[2018-04-06] MEDS ORDERED: WATER FOR INJ,STERILE 10 ML ONE (22:42)
[2018-04-06] MEDS: PREGABALIN 50 MG CAP PO SCH (22:45)
[2018-04-06] MEDS: TIZANIDINE 4 MG TABLET PO SCH (22:45)
[2018-04-06] MEDS: HYDROCORTISONE SUC 100 MG INJ IV SCH (22:45)
[2018-04-07] MEDS: HYDROCORTISONE SUC 100 MG INJ IV SCH ×4 (04:40→22:36)
[2018-04-07 05:11] LABS: Absolute Monocytes 0.8 K/uL (0.1-1.3); Absolute Neutrophil 9.7 K/uL (1.8-8.0); Basophils % 0.2 % (0-1.3); Hematocrit 40.6 % (36.0-45.0); MCV 85.7 fL (80-100); MPV 8.1 fL (7.6-11.3); Monocytes % 7.2 % (3.3-12.3); RBC Red Blood Cell Count 4.74 M/uL (3.86-4.86)
[2018-04-07 05:47] LABS: Potassium 5.3 mmol/L (3.5-5.1)
[2018-04-07 05:49] VITALS: BMI 29.0
[2018-04-07] MEDS: PANTOPRAZOLE 40MG TABLET PO SCH (06:32)
[2018-04-07] MEDS: LEVOTHYROXINE SOD 0.075 MG TAB PO SCH (06:32)
[2018-04-07] MEDS: FENTANYL CITR 100 MCG/2 ML IV PRN ×2 (06:56→11:13)
[2018-04-07] MEDS: VITAMIN D 1000 UNIT TAB PO SCH (08:41)
[2018-04-07] MEDS: cloNIDine HCl 0.1 MG TAB PO SCH ×3 (08:41→21:00)
[2018-04-07] MEDS: PREGABALIN 50 MG CAP PO SCH ×2 (08:41→21:36)
[2018-04-07] MEDS: ASPIRIN 81 MG CHEWABLE TABLET PO SCH (08:41)
[2018-04-07] MEDS: SERTRALINE HCL 100 MG TAB PO SCH (08:42)
[2018-04-07] MEDS: LIDOCAINE 5% PATCH TOP SCH (08:42)
[2018-04-07] MEDS: DILTIAZEM HCL 180 MG SR CAP PO SCH (08:42)
[2018-04-07] MEDS: TIZANIDINE 4 MG TABLET PO SCH ×2 (08:42→21:36)
[2018-04-07] MEDS: [UNRECOGNIZED DRUG - OTHER] PO SCH (08:42)
[2018-04-07] MEDS ORDERED: LOSARTAN POTASSIUM 50 MG TABLET PO SCH (09:00)
--- NOTE | 2018-04-07 12:45 | EKG ---
Test Date: 2018-04-07 Test Time: 07:52:44 [employer]: CARMENCITA MEASUREMENT RESULTS: Intervals: Rate: 57 IA: 180 QRSD: 88 QT: 428 QTc: 416 [place]: P: 61 IA: 180 QRS: 34 T: 96 INTERPRETIVE STATEMENTS: Sinus bradycardia Abnormal QRS-T angle, consider primary T wave abnormality Abnormal ECG Compared to ECG 04/05/2018 23:20:53 T-wave abnormality now present Sinus rhythm no longer present ST (T wave) deviation no longer present Electronically Signed On 04-07-18 12:44:14 CDT by Lenard Angela
[2018-04-07 14:00] LABS: Potassium 4.3 mmol/L (3.5-5.1)
[2018-04-07] MEDS: ENOXAPARIN 40 MG/0.4 ML SQ SCH (16:40)
--- NOTE | 2018-04-07 17:17 | P.PN ---
Subjective Date of Service: 04/07/18 Chief Complaint: NECK PAIN, NAUSEA AND VOMITING TUNDE IS FEELING A LOT BETTER. FENTANYL, ZANAFLEX AND LYRICA WORKED GREAT FOR HER SEVERE NECK PAIN. SHE IS STABLE FOR THE FLOOR NOW . Review of Systems 10-point ROS is otherwise unremarkable Physical Examination - Vital Signs Temperature: 97.6 F Blood Pressure: 166/72 Pulse: 59 Respirations: 16 Pulse Ox (%): 96 - Physical Exam General: Mild distress, Obese HEENT: Atraumatic, PERRLA, EOMI Neck: Supple, JVD not distended Respiratory: Clear to auscultation bilaterally, Normal air movement Cardiovascular: Regular rate/rhythm, Normal S1 S2 Gastrointestinal: Normal bowel sounds, No tenderness Musculoskeletal: No tenderness Integumentary: No rashes Neurological: Normal speech, Normal tone, Normal affect Lymphatics: No axilla or inguinal lymphadenopathy - Studies Medications List Reviewed: Yes Assessment And Plan - Current Problems (Diagnosis) (1) Chronic headaches Onset Date: 04/07/18 Current Visit: Yes Status: Chronic Plan: HAS BEEN TO NEUROLOGIST HER NECK HAS SEVERE NECK PAIN, ARTHRITIS AND NERVE COMPRESSION ON MRI. PREDNISONE IS NOT HELPING. SHE CAN'T TAKE NARCOTICS WELL WILL TRY GABAPENTENE. (2) Neck pain Onset Date: 04/07/18 Current Visit: Yes Status: Chronic Plan: ABOVE. NECK PAIN IS IMPROVED WITH FENTANYL, LYRICA AND ZANAFLEX ORALLY. (3) Hyponatremia Onset Date: 01/27/18 Current Visit: No Status: Acute Plan: SODIUM WAS 133 JUST TWO WEEKS AGO. SHE HAS BEEN DRINKING LOT OF WATER. SHE ALSO IS ON TRILEPTAL FOR LONG DURATION FOR FACIAL TWITCHING BUT HAS NOT HAD LOW SODIUM UNTIL NOW. I WILL HOLD TRILEPTAL IT CAN GIVE RISE TO SIADH. HER LAB PICTURE FAVORS SIADH WITH LOW S OSM. HIGH U OSM AND HIGH URINE SODIUM. FLUID RESTICTION HAS IMPROVED SODIUM TO 120 NOW SIADH HAS IMPROVED SLOWLY JUST AT THE RIGHT SPEED TOO FAST CORRECTION CAN GIVE RISE TO COMPLICATIONS. WE STOPPED TRILEPTAL AND RESTRICTED FLUID INTAKE. (4) Temporal arteritis Onset Date: 04/07/18 Current Visit: Yes Status: Chronic Plan: THIS IS LIKELY WILL CONSULT DR. LEROY FOR TA BX BUT HER CONDITION CURRENTLY WILL NOT ALLOW HIM TO DO SURGERY. SOLUCORTEF IV IS GIVEN STRESS DOSE FOR PREDNISONE PO.
[2018-04-07 19:55] LABS: Potassium 4.5 mmol/L (3.5-5.1)
[2018-04-07] MEDS: ATORVASTATIN 10 MG TAB PO SCH (21:35)
[2018-04-08 01:14] LABS: Potassium 3.9 mmol/L (3.5-5.1)
[2018-04-08] MEDS: HYDROCORTISONE SUC 100 MG INJ IV SCH (05:28)
[2018-04-08] MEDS: LEVOTHYROXINE SOD 0.075 MG TAB PO SCH (06:30)
[2018-04-08] MEDS: PANTOPRAZOLE 40MG TABLET PO SCH (06:30)
[2018-04-08] MEDS ORDERED: TRAMADOL HCL 50 MG TAB PO PRN (06:44)
[2018-04-08 07:53] LABS: Potassium 4.5 mmol/L (3.5-5.1)
[2018-04-08] MEDS: cloNIDine HCl 0.1 MG TAB PO SCH ×3 (08:12→20:58)
[2018-04-08] MEDS: DILTIAZEM HCL 180 MG SR CAP PO SCH (08:12)
[2018-04-08] MEDS: ASPIRIN 81 MG CHEWABLE TABLET PO SCH (08:12)
[2018-04-08] MEDS: predniSONE 20 MG TAB PO SCH ×2 (08:13→20:58)
[2018-04-08] MEDS: [UNRECOGNIZED DRUG - OTHER] PO SCH (08:13)
[2018-04-08] MEDS: LIDOCAINE 5% PATCH TOP SCH ×2 (08:13→09:32)
[2018-04-08] MEDS: TIZANIDINE 4 MG TABLET PO SCH ×2 (08:14→20:58)
[2018-04-08] MEDS: SERTRALINE HCL 100 MG TAB PO SCH (08:14)
[2018-04-08] MEDS: VITAMIN D 1000 UNIT TAB PO SCH (08:14)
[2018-04-08] MEDS: PREGABALIN 50 MG CAP PO SCH ×2 (08:14→20:58)
[2018-04-08] MEDS ORDERED: Ringers Lactate 1,000 ML IV ONE (11:05)
[2018-04-08] MEDS ORDERED: CEFAZOLIN/SWI 1gm 1 GM/10 ML SYR ONE (11:34)
[2018-04-08] MEDS ORDERED: LIDOCAINE 1% MPF 5 ML VIAL ONE ×2 (11:49→11:51)
[2018-04-08] MEDS ORDERED: PROPOFOL 200 MG/20 ML VIAL IV ONE (11:50)
[2018-04-08] MEDS ORDERED: MIDAZOLAM HCL 2 MG/2 ML INJ ONE (11:50)
--- NOTE | 2018-04-08 12:43 | P.OP ---
Preoperative diagnosis: H/A, Diplopia, R/O Temporal Arteritis Postoperative diagnosis: same Primary procedure: Right Temporal Artery Biopsy Secondary procedure: Doppler guided Anesthesia: MAC Estimated blood loss: min Specimen: Temporal Artery Findings: as above Complications: None Transferred to: Recovery Room Condition: Good
[2018-04-08] MEDS ORDERED: CODEINE 30MG/APAP 300MG TAB PO PRN (12:53)
--- NOTE | 2018-04-08 13:56 | PREOPCON ---
Date of Consultation: 04/07/2018 Reason: The patient needs a temporal artery biopsy. History Of Present Illness: The patient is a 77-year-old female, was admitted with severe headache, neck pain, diplopia. She was started on prednisone as her CRP was elevated. However, sedimentation rate was normal and she has improved, and I was consulted for biopsy of the right temporal artery to rule out temporal arteritis. She is awake, alert. She is complaining of nonspecific pain in the hea d and neck region. No nausea or vomiting. No diarrhea or constipation. No sore throat, runny nose, cough, headaches, or dizziness. No chest pain. No fever or chills. Review of Systems: Otherwise unremarkable. Past Medical History: Significant for hypertension, depression, kidney cancer. Past Surgical History: Significant for nephrectomy on the right side, gastric bypass, hysterectomy, hernia repair. Allergies: INCLUDE DEMEROL AND MORPHINE. Social History: She does not smoke or drink. Family History: Noncontributory. Physical Examination: Vital Signs: Stable, afebrile. General: Awake, alert, and oriented x3. Head and Neck: Cranial nerves 2 through 12 are grossly within normal limits. No neck masses. No JV D. Throat clear. Neck is supple. Chest: Clear. Heart: S1, S2. Abdomen: Soft. Extremities: Neurovascularly intact. Neuro: Nonfocal. Laboratory Data: Reviewed. Assessment: Vision change, elevated C-reactive protein, rule out temporal arteritis. Recommendations: We will do a right-sided temporal artery biopsy. The patient understands the risks , benefits, and alternatives and agrees to procedure. Medicare discussed with Dr. Parks, the patient and family. JOE/SAVAGEL Voice ID: [id number] Report ID: [id number]
[2018-04-08] MEDS: ENOXAPARIN 40 MG/0.4 ML SQ SCH (17:00)
--- NOTE | 2018-04-08 17:40 | P.PN ---
Subjective Date of Service: 04/08/18 Chief Complaint: NECK PAIN, NAUSEA AND VOMITING Subjective: Ambulating, Improving TUNDE IS FEELING A LOT BETTER. FENTANYL, ZANAFLEX AND LYRICA WORKED GREAT FOR HER SEVERE NECK PAIN. SHE IS STABLE FOR THE FLOOR NOW . SHE IS FEELING A LOT BETTER. SHE HAS NO CHEST PAIN. Review of Systems 10-point ROS is otherwise unremarkable Physical Examination - Vital Signs Temperature: 97.2 F Blood Pressure: 145/67 Pulse: 58 Respirations: 16 Pulse Ox (%): 98 - Physical Exam General: Alert, In no apparent distress HEENT: Atraumatic, PERRLA, EOMI Neck: Supple, JVD not distended Respiratory: Clear to auscultation bilaterally, Normal air movement Cardiovascular: Regular rate/rhythm, Normal S1 S2 Gastrointestinal: Normal bowel sounds, No tenderness Musculoskeletal: No tenderness Integumentary: No rashes Neurological: Normal speech, Normal tone, Normal affect Lymphatics: No axilla or inguinal lymphadenopathy - Studies Medications List Reviewed: Yes Assessment And Plan - Current Problems (Diagnosis) (1) Chronic headaches Onset Date: 04/07/18 Current Visit: Yes Status: Chronic Plan: HAS BEEN TO NEUROLOGIST HER NECK HAS SEVERE NECK PAIN, ARTHRITIS AND NERVE COMPRESSION ON MRI. PREDNISONE IS NOT HELPING. SHE CAN'T TAKE NARCOTICS WELL WILL TRY GABAPENTENE. TA BX DONE. (2) Neck pain Onset Date: 04/07/18 Current Visit: Yes Status: Chronic Plan: ABOVE. NECK PAIN IS IMPROVED WITH FENTANYL, LYRICA AND ZANAFLEX ORALLY. (3) Hyponatremia Onset Date: 01/27/18 Current Visit: No Status: Acute Plan: SODIUM WAS 133 JUST TWO WEEKS AGO. SHE HAS BEEN DRINKING LOT OF WATER. SHE ALSO IS ON TRILEPTAL FOR LONG DURATION FOR FACIAL TWITCHING BUT HAS NOT HAD LOW SODIUM UNTIL NOW. I WILL HOLD TRILEPTAL IT CAN GIVE RISE TO SIADH. HER LAB PICTURE FAVORS SIADH WITH LOW S OSM. HIGH U OSM AND HIGH URINE SODIUM. FLUID RESTICTION HAS IMPROVED SODIUM TO 120 NOW SIADH HAS IMPROVED SLOWLY JUST AT THE RIGHT SPEED TOO FAST CORRECTION CAN GIVE RISE TO COMPLICATIONS. WE STOPPED TRILEPTAL AND RESTRICTED FLUID INTAKE. SODIUM I SUP TO 124 NOW. GRADUAL IMPROEMENT DC IN AM. (4) Temporal arteritis Onset Date: 04/07/18 Current Visit: Yes Status: Chronic Plan: THIS IS LIKELY WILL CONSULT DR. LEROY FOR TA BX BUT HER CONDITION CURRENTLY WILL NOT ALLOW HIM TO DO SURGERY. SOLUCORTEF IV IS GIVEN STRESS DOSE FOR PREDNISONE PO.
[2018-04-08] MEDS: ATORVASTATIN 10 MG TAB PO SCH (20:58)
[2018-04-08] MEDS ORDERED: VALACYCLOVIR 500 MG TAB PO ONE (23:00)
--- NOTE | 2018-04-08 23:42 | OP ---
Date of Procedure: 04/08/2018 Surgeon: Camilo Smith MD Preoperative Diagnoses: Vision change, diplopia, elevated CRP rule out temporal arteritis. Postoperative Diagnoses: Vision change, diplopia, elevated CRP rule out temporal arteritis. Procedure: Right temporal artery biopsy, Doppler aided. Estimated Blood Loss: Minimal. Specimen: Right temporal artery. Findings: As above. Anesthesia: MAC. Complications: None. Disposition: The patient tolerated the procedure in stable condition and taken to recovery in good g eneral condition. Procedure In Detail: The patient was brought to the OR and placed in supine position. MAC anesthesi a was begun. The patient was prepped and draped in the usual sterile fashion. Lidocaine 1% infiltra dominic locally. After Doppler machine used to localize the branch of the temporal artery anterior and s uperior to the right ear and then a 4 cm incision made and subcutaneous tissue divided. Deep to that a branch of the temporal artery identified. We confirmed with the Doppler machine and then proximal and distal control obtained and approximately a 4-cm segment of the temporal artery excised, sent to Pathology. Wound irrigated. Bleeding controlled cautery. A 3-0 chromic used to approximate subcut aneous tissue and close skin. Sterile dressing was applied. The patient was awakened and taken to Recovery in good general conditi on. /MODL Voice ID: [id number] Report ID: [id number]
--- NOTE | 2018-04-09 00:12 | PN ---
Date of Progress Note: 04/07/2018 Ms. Ocampo is seen by Dr. Freeman on 04/06/2018 for atypical chest pain, neck pain, hyponatremia. Sh e is known to have normal coronaries and apical ballooning history secondary to Takotsubo syndrome or feel that her neck pain is probably secondary to cervical spondylosis and musculoskeletal issue. Ca rotid Doppler showed mild carotid stenosis. Hyponatremia is improving. The case was discussed with Dr. Parks. We will sign off her case. No cardiac workup planned at this point. CALLIE/ANTONIO Voice ID: [id number] Report ID: [id number]
[2018-04-09] MEDS: LEVOTHYROXINE SOD 0.075 MG TAB PO SCH (05:59)
[2018-04-09] MEDS: PANTOPRAZOLE 40MG TABLET PO SCH (05:59)
[2018-04-09 07:22] LABS: Absolute Monocytes 1.3 K/uL (0.1-1.3); Absolute Neutrophil 11.8 K/uL (1.8-8.0); Basophils % 0.2 % (0-1.3); Eosinophils % 0.2 % (0-4.4); Hematocrit 40.6 % (36.0-45.0); Lymphocytes % 6.9 % (15.3-44.8); MCH 29.8 pg (27.0-35.0); MCV 87.9 fL (80-100); Monocytes % 9.5 % (3.3-12.3); RBC Red Blood Cell Count 4.61 M/uL (3.86-4.86)
[2018-04-09 07:35] LABS: Potassium 4.4 mmol/L (3.5-5.1)
[2018-04-09 08:47] VITALS: O2SAT 96
[2018-04-09] MEDS ORDERED: LIDOCAINE 5% 30 GM TUBE (for wound healing center only) TOP SCH (09:00)
[2018-04-09] MEDS: [UNRECOGNIZED DRUG - OTHER] PO SCH (09:00)
[2018-04-09] MEDS: TIZANIDINE 4 MG TABLET PO SCH (09:44)
[2018-04-09] MEDS: ASPIRIN 81 MG CHEWABLE TABLET PO SCH (09:44)
[2018-04-09] MEDS: PREGABALIN 50 MG CAP PO SCH (09:44)
[2018-04-09] MEDS: VITAMIN D 1000 UNIT TAB PO SCH (09:44)
[2018-04-09] MEDS: DILTIAZEM HCL 180 MG SR CAP PO SCH (09:44)
[2018-04-09] MEDS: LIDOCAINE 5% PATCH TOP SCH (09:45)
[2018-04-09] MEDS: SERTRALINE HCL 100 MG TAB PO SCH (09:45)
[2018-04-09] MEDS: cloNIDine HCl 0.1 MG TAB PO SCH (09:45)
[2018-04-09] MEDS: predniSONE 20 MG TAB PO SCH (09:45)
[2018-04-09 12:27] VITALS: BP 105/62; TEMP 97.1
--- NOTE | 2018-04-09 12:43 | P.DS ---
Admission Date: 04/06/18 Discharge Date: 04/09/18 Disposition: ROUTINE DISCHARGE Discharge Condition: FAIR Reason for Admission: NECK PAIN, NAUSEA AND VOMITING - Problems (1) Chronic headaches Onset Date: 04/07/18 Current Visit: Yes Status: Chronic (2) Neck pain Onset Date: 04/07/18 Current Visit: Yes Status: Chronic (3) Hyponatremia Onset Date: 01/27/18 Current Visit: No Status: Acute (4) Temporal arteritis Onset Date: 04/07/18 Current Visit: Yes Status: Chronic Brief History of Present Illness: MS. WELLER HAS HAD HEADACHES, WITH DIPLOPIA FEW DAYS AGO. SHE IS TO SEE DR. SELBY FOR POSSIBLE TA AND SHE HAD DOUBLE VISION I STARTED HER ON PREDNISONE 20 MG POBID FOR POSSIBLE. TA. SHE REPORTS TO ER WITH SEVERE NECK PAIN THAT IS WORSE THAN SHE HAS HAD LATELY. SHE ALSO HAS NAUSEA AND VOMITING. SHE DRINKS 3-4 LARGE JUGS OF WATER DAILY. MS WELLER COMES WITH SEVERE NECK PAIN, AND HYPONATREMIA. 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 SHE ALSO DEVELOPED SIADH FROM TRILEPTAL. I STOPPED TRILEPTAL AND RESTRICTED FLUIDS AND SODIUM CAME UP FROM 117 TO 131 OVER FOUR DAYS. THIS IS GRADUAL LIKE WE NEED TO AVOID COMPLICATIONS. SHE HAS FELT LOT BETTER IN PAIN WITH LYRICA AND ZANAFLEX. INITIALLY I HAD TO USE FENTANYL IV FOR PAIN. SHE IS STABLE FOR HOME AND WILL FU IN OFFICE. Vital Signs/Physical Exam: Temp Pulse Resp BP Pulse Ox 97.1 F 69 16 105/62 95 04/09/18 12:00 04/09/18 12:00 04/09/18 12:00 04/09/18 12:00 04/09/18 12:00 Laboratory Data at Discharge: WBC 14.2 K/uL (4.3-10.9) H D 04/09/18 07:09 Hgb 13.7 g/dL (12.0-15.0) 04/09/18 07:09 Hct 40.6 % (36.0-45.0) 04/09/18 07:09 Plt Count 214 K/uL (152-406) 04/09/18 07:09 PT 11.1 SECONDS (9.5-12.5) 04/06/18 00:00 INR 0.94 04/06/18 00:00 APTT 22.8 SECONDS (24.3-36.9) L 04/06/18 00:00 Sodium 131 mmol/L (136-145) L 04/09/18 07:09 Potassium 4.4 mmol/L (3.5-5.1) 04/09/18 07:09 BUN 27 mg/dL (7-18) H 04/09/18 07:09 Creatinine 0.90 mg/dL (0.55-1.3) 04/09/18 07:09 Glucose 136 mg/dL (74-106) H 04/09/18 07:09 Magnesium 1.7 mg/dL (1.8-2.4) L 04/06/18 00:00 Total Bilirubin 0.7 mg/dL (0.2-1.0) 04/06/18 00:00 AST 16 U/L (15-37) 04/06/18 00:00 ALT 22 U/L (12-78) 04/06/18 00:00 Alkaline Phosphatase 84 U/L (45-117) 04/06/18 00:00 Troponin I 0.02 ng/mL (0.0-0.045) 04/06/18 08:55 Home Medications: Aspirin 1 pill PO DAILY 03/30/17 Levothyroxine [Synthroid*] 75 mcg PO DAILY 03/30/17 Losartan Potassium [Cozaar] 100 mg PO DAILY 03/31/17 Cholecalciferol (Vitamin D3) [Vitamin D3] 1 cap PO DAILY 01/26/18 Cranberry Conc/C/Bacill Coag [Cranberry Tablet] 4,200 mg PO DAILY 01/26/18 Sertraline [Zoloft*] 100 mg PO DAILY 01/26/18 Atorvastatin Calcium [Lipitor*] 10 mg PO BEDTIME 04/06/18 Clonidine HCl [Catapres] 0.1 mg PO TID 04/06/18 Diltiazem HCl [Cardizem LA] 180 mg PO DAILY 04/06/18 Esomeprazole Mag Trihydrate [Nexium] 40 mg PO DAILY 04/06/18 Nitroglycerin [Nitrostat*] 0.4 mg SL PRN PRN 04/06/18 predniSONE [Prednisone*] 20 mg PO BID 04/06/18 Lidocaine 5% Patch [Lidoderm 5% Patch*] 1 patch TOP DAILY patch 04/09/18 Pregabalin [Lyrica*] 50 mg PO BID #60 cap 04/09/18 Tizanidine [Zanaflex*] 4 mg PO BID #60 tab 04/09/18 traMADol HCL [Ultram*] 50 mg PO Q6H PRN #50 tab 04/09/18 New Medications: Pregabalin [Lyrica*] 50 mg PO BID #60 cap Tizanidine [Zanaflex*] 4 mg PO BID #60 tab traMADol HCL [Ultram*] 50 mg PO Q6H PRN #50 tab PRN Reason: Pain Followup: Toby Parks MD [ACTIVE - CAN ADMIT] - 1-2 Weeks (Call for appointment) Camilo Smith MD [ACTIVE - CAN ADMIT] - 1-2 Weeks (Call for appointment)
[2018-04-09] MEDS ORDERED: VALACYCLOVIR 500 MG TAB PO ONE (21:12)
== END 2018-04-09 13:08 | disposition home or self-care (01) | DRG 516 ==
LOC: ER 23:13 → ERHOLD 04-06 03:31 → 3RD-ICU 04-06 07:49 → 2ND 04-07 12:03
PROVIDERS: ADMIT Internal Medicine; ATTEND Internal Medicine
PROC: 03BS3ZX Excision of Right Temporal Artery, Percutaneous Approach, Diagnostic (ICD-10-PCS; principal; 2018-04-08 11:15)
DX: M31.6 Other giant cell arteritis (principal); E87.1 Hypo-osmolality and hyponatremia; E22.2 Syndrome of inappropriate secretion of antidiuretic hormone; M54.2 Cervicalgia; R07.89 Other chest pain; I10 Essential (primary) hypertension; Z85.528 Personal history of other malignant neoplasm of kidney; Z90.5 Acquired absence of kidney; Z98.84 Bariatric surgery status; E03.9 Hypothyroidism, unspecified; M13.88 Other specified arthritis, other site
CPT/HCPCS: 36415; 71045; 72141; 80048; 80076; 81003; 82550; 82553; 83735; 83880; 83930; 83935; 84300; 84484; 85025; 85610; 85730; 88305; 93005; 96361; 96374; 96375; 97163; 99285; J0360; J0690; J1650; J1720; J2250; J2405; J3010; J7030; J7512

== ENCOUNTER 2018-10-20 11:57 | Inpatient (IN) | payer OTHER ==
--- OUTSIDE RECORDS SUMMARY | 2018-10-20 12:14 | XMS REPORT | Continuity of Care Document ---
:1940 Author Organization Interface Problems Problem Status Onset Date Classification Date Comments Source Reported Medications Medication Details Route Status Patient Ordering Order Source Instructions Provider Date Allergies, Adverse Reactions, Alerts Substance Category Reaction Severity Reaction Status Date Comments Source type Reported Immunizations Immunization Date Given Site Status Last Updated Comments Source Results Order Results Value Reference Date Interpretation Comments Source Name Range Vital Signs Vital Sign Value Date Comments Source Encounters Location Location Encounter Encounter Reason Attending ADM DC Status Source Details Type Number For Provider Date Date Visit Outpatient [id number] RIANA 06/12 Active [facility] Outpatient [id number] RIANA 07/17 [facility] Outpatient [id number] RIANA 08/28 [facility] Outpatient [id number] RIANA 10/30 [facility] Procedures Procedure Code Date Perfomer Comments Source
[2018-10-20] MEDS ORDERED: ONDANSETRON 4 MG/2 ML VIAL IV PRN (13:00)
[2018-10-20] MEDS ORDERED: ONDANSETRON 4 MG (ODT) TAB PO PRN (13:00)
[2018-10-20] MEDS ORDERED: DIPHENHYDRAMINE 25 MG TAB/CAP PO PRN (13:00)
[2018-10-20] MEDS ORDERED: ACETAMINOPHEN 325 MG TABLET PO PRN (13:00)
[2018-10-20] MEDS ORDERED: LOPERAMIDE HCL 2 MG CAPSULE PO PRN (13:00)
[2018-10-20] MEDS ORDERED: POLYETHYL GLY 3350 17 GM/DOSE PO PRN (13:00)
[2018-10-20 13:03] VITALS: BMI 27.5
[2018-10-20 13:06] LABS: Absolute Lymphocytes (CBC) 1.7 K/uL (0.7-4.9); Absolute Monocytes 0.8 K/uL (0.1-1.3); Absolute Neutrophil 16.4 K/uL (1.8-8.0); Basophils % 0.2 % (0-1.3); Eosinophils % 0.1 % (0-4.4); Hematocrit 44.3 % (36.0-45.0); Lymphocytes % 8.8 % (15.3-44.8); MPV 8.8 fL (7.6-11.3); RBC Red Blood Cell Count 4.51 M/uL (3.86-4.86)
[2018-10-20 13:31] LABS: Protime INR 0.94
[2018-10-20] MEDS: NACHLORIDE 0.45% 1,000 ML IV SCH (13:39)
[2018-10-20 13:48] LABS: Albumin 3.6 g/dL (3.4-5.0); Bilirubin Direct 0.3 mg/dL (0-0.2); Bilirubin Total 0.9 mg/dL (0.2-1.0); Phosphorus 2.8 mg/dL (2.5-4.9); Potassium 3.2 mmol/L (3.5-5.1); Protein, Total 6.2 g/dL (6.4-8.2)
[2018-10-20 14:03] LABS: Anisocytosis 1+; Blood Morphology Comment NOTED (NOT SEEN); Platelet Estimate ADEQ; Thyroid Stimulating Hormone 5.56 uIU/mL (0.360-3.740)
[2018-10-20 14:04] LABS: Platelets, Giant NOTED
--- NOTE | 2018-10-20 15:56 | RAD REPORT ---
EXAM DESCRIPTION: CT - Abdomen Pelvis W Contrast - 10/20/2018 2:45 pm CLINICAL HISTORY: Abdominal pain. COMPARISON: 2018 TECHNIQUE: Computed axial tomography of the abdomen and pelvis was obtained. 100 cc Isovue-300 is ad ministered intravenously. Oral contrast was given. All CT scans are performed using dose optimization technique as appropriate and may include automated exposure control or mA/KV adjustment according to patient size. FINDINGS: Postsurgical changes involve the stomach. Stranding is present adjacent to a loop of small bowel within the anterior lower abdomen near midline . There appears to be small diverticulum. Several small collections of air are extraluminal and abuts the anterior abdominal wall in this region. The liver protrudes through a right posterolateral hernia within the lower abdomen. The neck measures about 6 centimeters. It is without significant change from a 2009 exam. Small left posteromedial diaphragmatic hernia contains fat. Splenic granulomata are seen. Pancreas, adrenals and left kidney are unremarkable. A right nephrectomy has been performed. Colonic diverticulosis is present. A cyst is present. Hysterectomy has been performed IMPRESSION: Small collections of air lie outside of the lumen of the small bowel within the anterio r lower abdomen. The air abuts the anterior abdominal wall. This may be secondary to ruptured small-b owel diverticulitis. Exam was discussed with Dr Parks approximately 3:40 p.m. October 20, 2018
--- NOTE | 2018-10-20 16:35 | RAD REPORT ---
EXAM DESCRIPTION: Felice Sher (2 Views)10/20/2018 4:30 pm CLINICAL HISTORY: Abdominal pain COMPARISON: March 2018 FINDINGS: The lungs appear clear of acute infiltrate. The heart is normal size IMPRESSION: No acute abnormalities displayed
--- NOTE | 2018-10-20 18:37 | CON ---
Date of Consultation: 10/20/2018 Reason For Consultation: Abdominal pain. History Of Present Illness: The patient is a 78-year-old female, who comes in with acute onset of ab dominal pain centrally radiating to both sides associated with nausea, but no vomiting. Recently had a bowel movement and passing gas. No dysuria or hematuria. No blood in her stool. No sore throat, runny nose, cough, headaches, or dizziness. No chest pain. No fever or chills. The pain is consta nt. Review of Systems: Otherwise unremarkable. Past Medical History: Significant for hypothyroidism, hypertension, high cholesterol, depression, ki dney cancer. Past Surgical History: Right nephrectomy, gastric bypass surgery, hysterectomy, and a hernia repair on her right nephrectomy was done. Allergies: INCLUDE DEMEROL AND MORPHINE. THE PATIENT DOES NOT SMOKE. DOES NOT DRINK ALCOHOL. Family History: Noncontributory. Physical Examination: Vital Signs: Stable. She is currently afebrile. General: She is awake, alert, and oriented x3. Head and Neck: Cranial nerves 2 through 12 grossly within normal limits. No neck masses. No JVD. Throat clear. Neck: Supple. Chest: Clear. Heart: S1, S2. Abdomen: Soft. Minimal diffuse tenderness in the central part of the abdomen; however, she has a wi dened scar from previous surgery. There is a tender questionable mass in the mid abdomen where the u mbilicus used to be. There is no umbilicus now, but there is no rebound, rigidity, or guarding at th is time. However, this place of tenderness is quite exquisite. Extremity: Adequate perfusion. Nontender. Neuro: Nonfocal. Laboratory Data: White count is 18.8 with a left shift. INR is 0.94. Chemistry is pending. CT of the abdomen and pelvis is pending. Assessment: A 78-year-old female, likely with incarcerated ventral hernia. I do not think it is str angulated based on her clinical symptoms; however, we will await the report on the CAT scan following which I will make my recommendation. Should it be an incarcerated hernia, we will schedule her for a laparoscopic, possible open repair. The patient understands the plan of care. We will discuss the risks, benefits, and alternatives after the CAT scan is done with the patient. /MODL Voice ID: [id number] Report ID: [id number]
[2018-10-21 00:14] LABS: Urine Appearance CLEAR; Urine Bilirubin NEGATIVE (NEG); Urine Blood NEGATIVE (NEG); Urine Color YELLOW; Urine Glucose NEGATIVE (NEG); Urine Protein NEGATIVE (NEG); Urine Specific Gravity >=1.030 (1.005-1.030); Urine Urobilinogen 0.2 mg/dL (0.2-1.0); Urine pH 5.5 (5.0-7.0)
[2018-10-21 00:22] LABS: Urine Microscopic Reflex ORDER UMIC
[2018-10-21 01:07] LABS: Urine Bacteria <20 /HPF (<20); Urine Culture Reflex Order NOT NEEDED; Urine RBC NONE SEEN /HPF (NONE SEEN)
[2018-10-21 04:25] LABS: Absolute Monocytes 0.9 K/uL (0.1-1.3); Basophils % 0.6 % (0-1.3); Eosinophils % 0.3 % (0-4.4); Hematocrit 38.2 % (36.0-45.0); Lymphocytes % 14.1 % (15.3-44.8); Monocytes % 6.5 % (3.3-12.3); RBC Red Blood Cell Count 3.89 M/uL (3.86-4.86)
[2018-10-21 04:39] LABS: Magnesium 2.2 mg/dL (1.8-2.4); Potassium 4.1 mmol/L (3.5-5.1)
--- NOTE | 2018-10-21 06:06 | EKG ---
Test Date: 2018-10-20 Test Time: 13:01:38 Hand Stapler: JOSE MEASUREMENT RESULTS: Intervals: Rate: 69 OK: 156 QRSD: 78 QT: 372 QTc: 398 Foster: P: 12 OK: 156 QRS: 18 T: 56 INTERPRETIVE STATEMENTS: Normal sinus rhythm Normal ECG Compared to ECG 04/07/2018 07:52:44 Sinus bradycardia no longer present T-wave abnormality no longer present Electronically Signed On 10-21-18 06:04:30 SENIOR MEDICAL DIRECTOR by Lenard Angela
[2018-10-21] MEDS ORDERED: FUROSEMIDE 20 MG TABLET PO PRN (06:36)
[2018-10-21] MEDS ORDERED: NITROGLYCERIN 0.4 MG/TAB SL SCH (07:00)
[2018-10-21] MEDS ORDERED: ASPIRIN EC 81 MG TAB PO SCH (07:00)
[2018-10-21] MEDS: ALPHA LIPOIC ACID 600 MG PO SCH (08:17)
[2018-10-21] MEDS: CEFOXITIN/SWI 2gm 2 GM/20 ML SYR IV SCH ×2 (08:18→17:22)
[2018-10-21] MEDS: ENOXAPARIN 40 MG/0.4 ML SQ SCH (08:18)
[2018-10-21] MEDS: VALACYCLOVIR 500 MG TAB PO SCH (08:18)
[2018-10-21] MEDS: LOSARTAN POTASSIUM 50 MG TABLET PO SCH (08:18)
[2018-10-21] MEDS: predniSONE 20 MG TAB PO SCH (08:19)
[2018-10-21] MEDS: SERTRALINE HCL 100 MG TAB PO SCH (08:19)
[2018-10-21] MEDS: PANTOPRAZOLE 40 MG INJ IV SCH (08:19)
[2018-10-21] MEDS: RANITIDINE 150 MG TABLET PO SCH (08:19)
[2018-10-21] MEDS: VITAMIN D 1000 UNIT TAB PO SCH (08:19)
[2018-10-21] MEDS: MEMANTINE HCL 10 MG TABLET PO SCH (08:19)
[2018-10-21] MEDS: SODIUM CHLORIDE 0.9% 10ML INJ IV SCH (08:20)
[2018-10-21] MEDS ORDERED: CEFOXITIN 2 GM in NA CHLORIDE 0.9% 100 ML IVPB SCH (09:00)
[2018-10-21] MEDS ORDERED: LEVOTHYROXINE SOD 0.088 MG TAB PO SCH (09:00)
[2018-10-21] MEDS: METRONIDAZOLE 500mg IVPB 500 MG/100 ML BAG IV SCH ×3 (12:24→23:32)
--- NOTE | 2018-10-21 17:31 | P.PN ---
Subjective Date of Service: 10/21/18 Chief Complaint: ABDOMEN PAIN. Subjective: Improving SHE IS SOME BETTER. HAD ACUTE ONSET OF PAIN. CT SCAN REVIEWED. Review of Systems 10-point ROS is otherwise unremarkable General: Weakness, Malaise Physical Examination - Vital Signs Temperature: 97.0 F Blood Pressure: 140/60 Pulse: 70 Respirations: 18 Pulse Ox (%): 96 - Physical Exam General: Alert, In no apparent distress HEENT: Atraumatic, PERRLA, EOMI Neck: Supple, JVD not distended Respiratory: Clear to auscultation bilaterally, Normal air movement Cardiovascular: Regular rate/rhythm, Normal S1 S2 Gastrointestinal: No rebound, Tenderness Musculoskeletal: No tenderness Integumentary: No rashes Neurological: Normal speech, Normal tone, Normal affect Lymphatics: No axilla or inguinal lymphadenopathy - Studies Laboratory Data (last 24 hrs) 10/21/18 03:43: Sodium 146 H, Potassium 4.1, BUN 16, Creatinine 0.91, Glucose 119 H, Magnesium 2.2 10/21/18 03:43: WBC 14.0 H D, Hgb 12.4, Hct 38.2, Plt Count 137 L D Medications List Reviewed: Yes Assessment And Plan - Current Problems (Diagnosis) (1) Diverticulosis of jejunum without diverticulitis Current Visit: Yes Status: Chronic Plan: DIAGNOSED NOW , POSSIBLE OLD. (2) Perforated bowel Current Visit: Yes Status: Acute Plan: MICROPERFORATION. ABX IV DR LEROY ON CASE. (3) Chronic neck pain Current Visit: Yes Status: Chronic Plan: LYRICA PO. (4) Chronic headaches Onset Date: 04/07/18 Current Visit: No Status: Chronic Qualifiers: Headache type: tension-type (5) Temporal arteritis Onset Date: 04/07/18 Current Visit: No Status: Chronic Plan: ON STEROIDS ORAL. STABLE BUT NOT CURED.
[2018-10-21] MEDS: PREGABALIN 50 MG CAP PO SCH (21:02)
[2018-10-21] MEDS: NACHLORIDE 0.45% 1,000 ML IV SCH (21:03)
[2018-10-22] MEDS: CEFOXITIN/SWI 2gm 2 GM/20 ML SYR IV SCH ×3 (00:46→17:14)
[2018-10-22 04:12] LABS: Absolute Lymphocytes (CBC) 1.8 K/uL (0.7-4.9); Absolute Monocytes 0.8 K/uL (0.1-1.3); Absolute Neutrophil 10.9 K/uL (1.8-8.0); Basophils % 0.3 % (0-1.3); Eosinophils % 0.8 % (0-4.4); Hematocrit 37.9 % (36.0-45.0); Lymphocytes % 13.4 % (15.3-44.8); MPV 8.8 fL (7.6-11.3); Monocytes % 6.1 % (3.3-12.3); RBC Red Blood Cell Count 3.86 M/uL (3.86-4.86)
[2018-10-22 04:18] LABS: Magnesium 2.2 mg/dL (1.8-2.4); Potassium 3.8 mmol/L (3.5-5.1)
[2018-10-22] MEDS: LEVOTHYROXINE SOD 0.088 MG TAB PO SCH (05:35)
[2018-10-22] MEDS: METRONIDAZOLE 500mg IVPB 500 MG/100 ML BAG IV SCH ×3 (05:35→17:14)
[2018-10-22] MEDS: ALPHA LIPOIC ACID 600 MG PO SCH (09:00)
[2018-10-22] MEDS: MEMANTINE HCL 10 MG TABLET PO SCH (09:08)
[2018-10-22] MEDS: ENOXAPARIN 40 MG/0.4 ML SQ SCH (09:08)
[2018-10-22] MEDS: LOSARTAN POTASSIUM 50 MG TABLET PO SCH (09:08)
[2018-10-22] MEDS: VITAMIN D 1000 UNIT TAB PO SCH (09:08)
[2018-10-22] MEDS: VALACYCLOVIR 500 MG TAB PO SCH (09:08)
[2018-10-22] MEDS: PANTOPRAZOLE 40 MG INJ IV SCH (09:08)
[2018-10-22] MEDS: predniSONE 20 MG TAB PO SCH (09:09)
[2018-10-22] MEDS: SERTRALINE HCL 100 MG TAB PO SCH (09:09)
[2018-10-22] MEDS: SODIUM CHLORIDE 0.9% 10ML INJ IV SCH (09:09)
[2018-10-22] MEDS: RANITIDINE 150 MG TABLET PO SCH (09:09)
--- NOTE | 2018-10-22 12:22 | P.PN ---
Subjective Date of Service: 10/22/18 Chief Complaint: ABDOMEN PAIN. Subjective: Improving SHE IS SOME BETTER. HAD ACUTE ONSET OF PAIN. CT SCAN REVIEWED. SHE IS SOME BETTER. MILD TO MODERATE PAIN IN ABDOMEN. Review of Systems 10-point ROS is otherwise unremarkable General: Weakness, Malaise Physical Examination - Vital Signs Temperature: 97.9 F Blood Pressure: 172/55 Pulse: 65 Respirations: 18 Pulse Ox (%): 94 - Physical Exam General: Alert, Mild distress, Moderate distress HEENT: Atraumatic, PERRLA, EOMI Neck: Supple, JVD not distended Respiratory: Clear to auscultation bilaterally, Normal air movement Cardiovascular: Regular rate/rhythm, Normal S1 S2 Gastrointestinal: Tenderness (BETTER THAN YESTERDAY.) Musculoskeletal: No tenderness Integumentary: No rashes Neurological: Normal speech, Normal tone, Normal affect Lymphatics: No axilla or inguinal lymphadenopathy - Studies Laboratory Data (last 24 hrs) 10/22/18 03:48: Sodium 146 H, Potassium 3.8, BUN 13, Creatinine 1.22, Glucose 122 H, Magnesium 2.2 10/22/18 03:48: WBC 13.7 H, Hgb 12.3, Hct 37.9, Plt Count 138 L Medications List Reviewed: Yes Assessment And Plan - Current Problems (Diagnosis) (1) Diverticulosis of jejunum without diverticulitis Current Visit: Yes Status: Chronic Plan: DIAGNOSED NOW , POSSIBLE OLD. (2) Perforated bowel Current Visit: Yes Status: Acute Plan: MICROPERFORATION. ABX IV DR LEROY ON CASE. MEDICALLY MANAGED PER DR. LEROY. NOT SURGICAL AT PRESENT. (3) Chronic neck pain Current Visit: Yes Status: Chronic Plan: LYRICA PO. (4) Chronic headaches Onset Date: 04/07/18 Current Visit: No Status: Chronic Qualifiers: Headache type: tension-type (5) Temporal arteritis Onset Date: 04/07/18 Current Visit: No Status: Chronic Plan: ON STEROIDS ORAL. STABLE BUT NOT CURED.
[2018-10-22] MEDS: INSULIN GLARGINE 100 UNITS/ML SQ SCH ×2 (15:58→20:43)
--- NOTE | 2018-10-22 17:05 | PN ---
Date of Progress Note: 10/22/2018 Subjective: The patient is awake, alert. No complaints. Objective: Vital Signs: Stable, afebrile. She is on full clear liquids. Abdomen: Soft, nondistended. Very minimal tenderness. No rebound, rigidity, or guarding. Laboratory Data: White count is lower at 13.7. There is a left shift. Assessment: Microperforation secondary to enteritis to the jejunum. Recommendations: We will advance diet to full liquid, continue IV antibiotics, serial abdominal exam . White count is elevated, could be secondary to the prednisone as well as some infection. No need for any acute surgical intervention at this time. We will follow the patient. /MODL Voice ID: [id number] Report ID: [id number]
[2018-10-22] MEDS: PREGABALIN 50 MG CAP PO SCH (20:43)
[2018-10-23] MEDS: METRONIDAZOLE 500mg IVPB 500 MG/100 ML BAG IV SCH ×5 (00:04→23:07)
[2018-10-23] MEDS: CEFOXITIN/SWI 2gm 2 GM/20 ML SYR IV SCH ×3 (01:58→17:34)
[2018-10-23] MEDS: LEVOTHYROXINE SOD 0.088 MG TAB PO SCH (05:34)
[2018-10-23 06:16] LABS: Absolute Lymphocytes (CBC) 1.9 K/uL (0.7-4.9); Absolute Monocytes 0.9 K/uL (0.1-1.3); Absolute Neutrophil 8.4 K/uL (1.8-8.0); Basophils % 1.2 % (0-1.3); Eosinophils % 0.6 % (0-4.4); Hematocrit 37.4 % (36.0-45.0); Lymphocytes % 16.4 % (15.3-44.8); Monocytes % 7.8 % (3.3-12.3); RBC Red Blood Cell Count 3.84 M/uL (3.86-4.86)
[2018-10-23 06:29] LABS: Magnesium 2.2 mg/dL (1.8-2.4); Potassium 3.4 mmol/L (3.5-5.1)
[2018-10-23] MEDS: NACHLORIDE 0.45% 1,000 ML IV SCH (07:40)
[2018-10-23] MEDS: ALPHA LIPOIC ACID 600 MG PO SCH (09:00)
[2018-10-23] MEDS: SODIUM CHLORIDE 0.9% 10ML INJ IV SCH (10:27)
[2018-10-23] MEDS: VALACYCLOVIR 500 MG TAB PO SCH (10:28)
[2018-10-23] MEDS: predniSONE 20 MG TAB PO SCH (10:29)
[2018-10-23] MEDS: PANTOPRAZOLE 40 MG INJ IV SCH (10:29)
[2018-10-23] MEDS: RANITIDINE 150 MG TABLET PO SCH (10:30)
[2018-10-23] MEDS: MEMANTINE HCL 10 MG TABLET PO SCH (10:30)
[2018-10-23] MEDS: VITAMIN D 1000 UNIT TAB PO SCH (10:30)
[2018-10-23] MEDS: SERTRALINE HCL 100 MG TAB PO SCH (10:30)
[2018-10-23] MEDS: LOSARTAN POTASSIUM 50 MG TABLET PO SCH (10:30)
[2018-10-23] MEDS: DILTIAZEM HCL 60 MG TAB PO SCH (10:31)
[2018-10-23] MEDS: ENOXAPARIN 40 MG/0.4 ML SQ SCH (10:33)
[2018-10-23] MEDS ORDERED: ACETAMIN/CAFFEINE/BUTALB TAB PO PRN (12:49)
--- NOTE | 2018-10-23 14:07 | P.PN ---
Subjective Date of Service: 10/23/18 Chief Complaint: ABDOMEN PAIN. SHE IS SOME BETTER. HAD ACUTE ONSET OF PAIN. CT SCAN REVIEWED. SHE IS SOME BETTER. MILD TO MODERATE PAIN IN ABDOMEN. SHE IS A LOT BETTER. HAS SOME HEADACHE TODAY. DIFFUSE. Review of Systems 10-point ROS is otherwise unremarkable Physical Examination - Vital Signs Temperature: 97.0 F Blood Pressure: 135/60 Pulse: 72 Respirations: 18 Pulse Ox (%): 96 - Physical Exam General: Alert, Mild distress, Obese HEENT: Atraumatic, PERRLA, EOMI Neck: Supple, JVD not distended Respiratory: Clear to auscultation bilaterally, Normal air movement Cardiovascular: Regular rate/rhythm, Normal S1 S2 Gastrointestinal: Normal bowel sounds, No tenderness Musculoskeletal: No tenderness Integumentary: No rashes Neurological: Normal speech, Normal tone, Normal affect Lymphatics: No axilla or inguinal lymphadenopathy - Studies Laboratory Data (last 24 hrs) 10/23/18 05:31: Sodium 146 H, Potassium 3.4 L, BUN 11, Creatinine 1.17, Glucose 102, Magnesium 2.2 10/23/18 05:31: WBC 11.4 H D, Hgb 12.3, Hct 37.4, Plt Count 151 L Microbiology Data (last 24 hrs): 10/20/18 23:42 Clean Catch Urine Lynn Count - Final <10,000 CFU/ML. 10/20/18 23:42 Clean Catch Urine - Final 10/21/18 13:53 Stool Clostridium difficile Toxin Assay - Final Medications List Reviewed: Yes Assessment And Plan - Current Problems (Diagnosis) (1) Diverticulosis of jejunum without diverticulitis Current Visit: Yes Status: Chronic Plan: DIAGNOSED NOW , POSSIBLE OLD. (2) Perforated bowel Current Visit: Yes Status: Acute Plan: MICROPERFORATION. ABX IV DR LEROY ON CASE. MEDICALLY MANAGED PER DR. LEROY. NOT SURGICAL AT PRESENT. (3) Chronic neck pain Current Visit: Yes Status: Chronic Plan: LYRICA PO. (4) Chronic headaches Onset Date: 04/07/18 Current Visit: No Status: Chronic Plan: ADD FIORICET DAILY PRN. RESUME PREVENTIVE MEDS. BP IS GOOD. Qualifiers: Headache type: tension-type (5) Temporal arteritis Onset Date: 04/07/18 Current Visit: No Status: Chronic Plan: ON STEROIDS ORAL. STABLE BUT NOT CURED.
--- NOTE | 2018-10-23 15:22 | PN ---
Date of Progress Note: 10/23/2018 Subjective: The patient is awake, alert. No complaint. Vital signs stable. Afebrile. White count is coming down. Abdomen is benign. Assessment: Enteritis with microperforation. Recommendation: As the patient is on steroids, I will recommend continuing on IV antibiotics at le t for another 24 hours. We will advance diet. The patient is clinically doing well. /MODL Voice ID: [id number] Report ID: [id number]
[2018-10-23] MEDS: INSULIN GLARGINE 100 UNITS/ML SQ SCH (17:36)
[2018-10-23] MEDS ORDERED: D50W 25 GM/50 ML SYRINGE IV PRN (17:43)
[2018-10-23] MEDS ORDERED: GLUCAGON 1 MG/VIAL IM PRN (17:43)
[2018-10-23] MEDS: PREGABALIN 50 MG CAP PO SCH (20:41)
[2018-10-23] MEDS: INSULIN -REGULAR HUMAN 50 UNIT/0.5 ML ML SQ SCH (20:41)
[2018-10-24] MEDS: CEFOXITIN/SWI 2gm 2 GM/20 ML SYR IV SCH ×2 (00:01→10:08)
[2018-10-24 00:41] VITALS: TEMP 97.6
[2018-10-24] MEDS: LEVOTHYROXINE SOD 0.088 MG TAB PO SCH (05:31)
[2018-10-24] MEDS: METRONIDAZOLE 500mg IVPB 500 MG/100 ML BAG IV SCH (05:31)
[2018-10-24 07:25] LABS: Absolute Lymphocytes (CBC) 3.1 K/uL (0.7-4.9); Absolute Neutrophil 8.5 K/uL (1.8-8.0); Basophils % 1.2 % (0-1.3); Eosinophils % 0.6 % (0-4.4); Hematocrit 43.5 % (36.0-45.0); Lymphocytes % 24.4 % (15.3-44.8); MPV 8.7 fL (7.6-11.3); Monocytes % 7.9 % (3.3-12.3); RBC Red Blood Cell Count 4.44 M/uL (3.86-4.86)
[2018-10-24] MEDS: INSULIN -REGULAR HUMAN 50 UNIT/0.5 ML ML SQ SCH (07:30)
[2018-10-24 07:39] LABS: Magnesium 2.1 mg/dL (1.8-2.4); Potassium 3.5 mmol/L (3.5-5.1)
[2018-10-24] MEDS: ALPHA LIPOIC ACID 600 MG PO SCH (09:00)
[2018-10-24 09:50] VITALS: BP 161/67
[2018-10-24 09:51] VITALS: O2SAT 95
[2018-10-24] MEDS: ENOXAPARIN 40 MG/0.4 ML SQ SCH (10:02)
[2018-10-24] MEDS: RANITIDINE 150 MG TABLET PO SCH (10:03)
[2018-10-24] MEDS: LOSARTAN POTASSIUM 50 MG TABLET PO SCH (10:04)
[2018-10-24] MEDS: VITAMIN D 1000 UNIT TAB PO SCH (10:04)
[2018-10-24] MEDS: DILTIAZEM HCL 60 MG TAB PO SCH (10:04)
[2018-10-24] MEDS: SERTRALINE HCL 100 MG TAB PO SCH (10:04)
[2018-10-24] MEDS: MEMANTINE HCL 10 MG TABLET PO SCH (10:04)
[2018-10-24] MEDS: predniSONE 20 MG TAB PO SCH (10:04)
[2018-10-24] MEDS: PANTOPRAZOLE 40 MG INJ IV SCH (10:05)
[2018-10-24] MEDS: SODIUM CHLORIDE 0.9% 10ML INJ IV SCH (10:07)
[2018-10-24] MEDS: VALACYCLOVIR 500 MG TAB PO SCH (11:04)
--- NOTE | 2018-10-24 11:11 | P.DS ---
Admission Date: 10/21/18 Discharge Date: 10/24/18 Disposition: ROUTINE DISCHARGE Discharge Condition: FAIR Reason for Admission: ABDOMEN PAIN. - Problems (1) Diverticulosis of jejunum without diverticulitis Current Visit: Yes Status: Chronic (2) Perforated bowel Current Visit: Yes Status: Acute (3) Chronic neck pain Current Visit: Yes Status: Chronic (4) Chronic headaches Onset Date: 04/07/18 Current Visit: No Status: Chronic Qualifiers: Headache type: tension-type (5) Temporal arteritis Onset Date: 04/07/18 Current Visit: No Status: Chronic Hospital Course: MS. WELLER COMES WITH SEVERE ABDOMEN PAIN, FOUND TO HAVE MICROPERFORATION FROM JEJUNAL DIVERTICULOSIS. SHE IMPROVED WELL WITH MEFOXIN AND FLAGYL. SHE IS NOW STABLE TO BE HOME ON CIPRO AND FLAGYL. SHE HAS IMPROVED ALMOST BACK TO HER BASELINE. Vital Signs/Physical Exam: Temp Pulse Resp BP Pulse Ox 97.6 F 66 16 161/67 H 93 10/24/18 08:00 10/24/18 10:04 10/24/18 08:00 10/24/18 10:04 10/24/18 08:00 General: Alert, In no apparent distress HEENT: Atraumatic, PERRLA, EOMI Neck: Supple, JVD not distended Respiratory: Clear to auscultation bilaterally, Normal air movement Cardiovascular: Regular rate/rhythm, Normal S1 S2 Gastrointestinal: Normal bowel sounds, No tenderness Musculoskeletal: No tenderness Integumentary: No rashes Neurological: Normal speech, Normal tone, Normal affect Lymphatics: No axilla or inguinal lymphadenopathy Laboratory Data at Discharge: WBC 12.9 K/uL (4.3-10.9) H 10/24/18 07:16 Hgb 14.1 g/dL (12.0-15.0) 10/24/18 07:16 Hct 43.5 % (36.0-45.0) D 10/24/18 07:16 Plt Count 243 K/uL (152-406) D 10/24/18 07:16 PT 11.1 SECONDS (9.5-12.5) 10/20/18 12:59 INR 0.94 10/20/18 12:59 APTT 26.0 SECONDS (24.3-36.9) 10/20/18 12:59 Sodium 143 mmol/L (136-145) 10/24/18 07:16 Potassium 3.5 mmol/L (3.5-5.1) 10/24/18 07:16 BUN 12 mg/dL (7-18) 10/24/18 07:16 Creatinine 1.37 mg/dL (0.55-1.3) H 10/24/18 07:16 Glucose 114 mg/dL (74-106) H 10/24/18 07:16 Phosphorus 2.8 mg/dL (2.5-4.9) 10/20/18 12:59 Magnesium 2.1 mg/dL (1.8-2.4) 10/24/18 07:16 Total Bilirubin 0.9 mg/dL (0.2-1.0) 10/20/18 12:59 AST 22 U/L (15-37) 10/20/18 12:59 ALT 46 U/L (12-78) 10/20/18 12:59 Alkaline Phosphatase 79 U/L (45-117) 10/20/18 12:59 Home Medications: Alpha Lipoic Acid 600 mg PO DAILY 10/20/18 Aspirin [Aspirin EC 81 MG] 81 mg PO SEECOM 10/20/18 Atorvastatin Calcium [Lipitor] 80 mg PO DAILY 10/20/18 Cholecalciferol (Vitamin D3) [Vitamin D3] 1,000 unit PO DAILY 10/20/18 Cranberry 4,200 mg PO DAILY 10/20/18 Furosemide [Lasix*] 20 mg PO DAILYPRN PRN 10/20/18 Insulin Glargine Human [Lantus*] See Protocol SQ PRN 10/20/18 Levothyroxine Sodium 0.088 mg PO DAILY 10/20/18 Losartan Potassium [Cozaar] 100 mg PO DAILY 10/20/18 Memantine HCl 10 mg PO DAILY 10/20/18 Nitroglycerin [Nitrostat*] 0.4 mg SL PRN 10/20/18 Pregabalin [Lyrica*] 50 mg PO BEDTIME 10/20/18 Ranitidine [Zantac*] 300 mg PO DAILY 10/20/18 Sertraline [Zoloft*] 100 mg PO DAILY 10/20/18 Valacyclovir [Valtrex*] 500 mg PO DAILY 10/20/18 dilTIAZem HCl [Diltiazem HCl] 120 mg PO DAILY 10/20/18 predniSONE [Prednisone*] 20 mg PO DAILY 10/20/18 Ciprofloxacin HCl [Cipro 250 MG Tablet*] 250 mg PO BID #14 tab 10/24/18 metroNIDAZOLE [Flagyl] 250 mg PO Q8H #21 tablet 10/24/18 New Medications: Ciprofloxacin HCl [Cipro 250 MG Tablet*] 250 mg PO BID #14 tab metroNIDAZOLE [Flagyl] 250 mg PO Q8H #21 tablet
--- NOTE | 2018-10-24 13:29 | PN ---
Date of Progress Note: 10/24/2018 Subjective: The patient is awake, alert, tolerating a regular diet. Vital signs stable, afebrile. Laboratory data reviewed. There is still leukocytosis, but I believe, it is because the patient is o n prednisone. Abdomen is soft, nondistended, nontender. Positive bowel sounds. Assessment: Enteritis with microperforation. Recommendations: The patient has healed, I believe, and clinically was doing well. Therefore, she w ill be discharged home on oral antibiotics with GI followup. /MODL Voice ID: [id number] Report ID: [id number]
== END 2018-10-24 11:31 | disposition home or self-care (01) | DRG 387 ==
LOC: 4TH 12:11 → OBSVTOIN 10-21 13:43
PROVIDERS: ADMIT Internal Medicine; ATTEND Internal Medicine
DX: K50.018 Crohn's disease of small intestine with other complication (principal); E03.9 Hypothyroidism, unspecified; F32.9 Major depressive disorder, single episode, unspecified; Z85.528 Personal history of other malignant neoplasm of kidney; Z90.5 Acquired absence of kidney; Z98.84 Bariatric surgery status; Z88.5 Allergy status to narcotic agent; K57.10 Diverticulosis of small intestine without perforation or abscess without bleeding; M54.2 Cervicalgia; G44.229 Chronic tension-type headache, not intractable; M31.6 Other giant cell arteritis
CPT/HCPCS: 36415; 71046; 74177; 80048; 80076; 81003; 81015; 82306; 82607; 82962; 83735; 84100; 84439; 84443; 85025; 85610; 85730; 87086; 87088; 87493; 93005; C9113; G0378; G0379; J0694; J1650; J7512; Q9967

== ENCOUNTER 2019-04-27 20:20 | Inpatient (IN) | payer OTHER ==
--- OUTSIDE RECORDS SUMMARY | 2019-04-27 20:22 | XMS REPORT | Continuity of Care Document ---
:1940 Author Organization [facility] Information [employer] Care Team Providers Name Role Phone [facility] [employer] Unavailable Unavailable Problems Problem Status Onset Classification Date Comments Source Date Reported Meningioma Active Problem 02/04/2019 [facility] Chronic UTI Active Problem 02/04/2019 [facility] Diabetes mellitus Active Problem 02/04/2019 [facility] Giant cell Active Problem 02/04/2019 [facility] arteritis [facility] Headache Active Problem 02/04/2019 [facility] Hemifacial spasm Active Problem 02/04/2019 [facility] History of heart Resolved Problem 02/04/2019 [facility] attack [facility] Hypothyroidism Active Problem 02/04/2019 [facility] Neuropathy Active Problem 02/04/2019 [facility] Benign neoplasm Active Problem 03/18/2019 [facility] of meninges Neuro (disorder) Chronic urinary Active Problem 03/18/2019 [facility] tract infection Neuro (disorder) Diabetes mellitus Active Problem 03/18/2019 [facility] (disorder) [facility] Giant cell Active Problem 03/18/2019 [facility] arteritis Neuro (disorder) Headache Active Problem 03/18/2019 [facility] (finding) [facility] Hemifacial spasm Active Problem 03/18/2019 [facility] (finding) [facility] 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[facility] myocardial [facility]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 (context-dependen t category) Hypothyroidism Active Problem 03/18/2019 [facility] (disorder) [facility] Neuropathy Active Problem 03/18/2019 [facility] (disorder) [facility] Medications Medication Details Route Status Patient Ordering Order Source Instructions Provider Date nortriptyline 10 See Active [facility] mg oral capsule Instruction 019 Neuro s, 3 po qhs, 0 Refill(s) Nortriptyline PO, Active [facility] Bedtime, 0 019 Neuro Refill(s) 24 HR Divalproex 250 mg=1 Active [facility] Sodium 250 MG tab, PO, 019 [facility] Extended Release Bedtime, # Tablet 30 tab, 3 [Depakote] Refill(s), Pharmacy: [facility] butpaulabital =1 tab, PO, Active [facility] 0 Refill(s) 019 Neuro Memantine 10 mg=2 Active [facility] hydrochloride 5 tab, PO, 019 Neuro MG Oral Tablet BID, # 120 [Namenda] tab, 3 Refill(s), Pharmacy: [facility] [place] 0.9 ML 162 mg, Active [facility] tocilizumab 180 SUB-Q, 0 019 Neuro MG/ML Prefilled Refill(s) Syringe [Actemra] topiramate 25 MG 25 mg=1 No Longer [facility] Oral Tablet tab, PO, Active 018 Neuro [Topamax] BID, # 60 tab, 3 Refill(s), Pharmacy: [facility] Insulin Glargine See Active [facility] 100 UNT/ML Instruction 018 Neuro Injectable s, SUB-Q Solution PRN, 0 [Lantus] Refill(s) Tramadol 50 mg, PO, Active [facility] PRN, PRN 018 Neuro Pain topiramate 25 MG 25 mg=1 No Longer [facility] Oral Tablet tab, PO, Active 018 Neuro [Topamax] Bedtime, # 30 tab, 3 Refill(s), Pharmacy: [facility] [place] Lyrica 25 mg, PO, Active [facility] Daily, 0 018 Neuro Refill(s) Losartan 100 mg, PO, Active [facility] Daily, 0 018 Neuro Refill(s) Aspirin 81 mg, PO, Active [facility] Daily, 0 018 Neuro Refill(s) Thyroxine 75 Active [facility] microgram, 018 Neuro IV, Daily, 0 Refill(s) atorvastatin 10 mg, PO, Active [facility] Daily, 0 018 Neuro Refill(s) Nitroglycerin 0.4 mg, SL, Active [facility] PRN, 0 018 Neuro Refill(s) Sertraline 100 mg, PO, Active [facility] Daily, 0 018 Neuro Refill(s) Cranberry 4,200 mg=, Active [facility] PO, Daily, 018 Neuro 0 Refill(s) Vitamin D3 1, PO, Active [facility] Daily, 0 018 Neuro Refill(s) Prednisone 15 mg, PO, Active [facility] Daily, 018 Neuro Quantity sufficient, 0 Refill(s) Famotidine 20 MG 40 mg=2 Active [facility] Oral Tablet tab, PO, 018 Neuro Daily, 0 Refill(s) Amoxicillin 2, PO, No Longer [facility] Daily, 0 Active 018 Neuro Refill(s) Diltiazem 120 mg, PO, Active [facility] Daily, 0 018 Neuro Refill(s) Furosemide 20 mg, PO, Active [facility] PRN, 0 018 Neuro Refill(s) Allergies, Adverse Reactions, Alerts Substance Category Reaction Severity Reaction Status Date Comments Source type Reported morphine Assertion Drug Active [facility] allergy [facility] Demerol Assertion Drug Active [facility] allergy [facility] Immunizations No Data Provided for This Section Results No Data Provided for This Section Pathology Reports No Data Provided for This Section Diagnostic Reports No Data Provided for This Section Consultation Notes No Data Provided for This Section Discharge Summaries No Data Provided for This Section History and Physicals No Data Provided for This Section Vital Signs Vital Sign Value Date Comments Source Height 149.86 cm 01/12/2019 [facility] BMI Calculated 28.34 01/12/2019 [facility] Weight 63.636 01/12/2019 [facility] Heart [facility] 69 [facility]12[facility] Respitory Rate 16 01/12/2019 [facility] Systolic (mm Hg) 163 01/12/2019 [facility] Diastolic (mm Hg) 71 01/12/2019 [facility] BMI Calculated 27.2 12/16/2018 [facility] Weight 63.182 12/16/2018 [facility] Height 152.4 cm 12/16/2018 [facility] Respitory Rate 16 12/16/2018 [facility] Heart Rate 63 12/16/2018 [facility] Systolic (mm Hg) 174 12/16/2018 [facility] Diastolic (mm Hg) 69 12/16/2018 [facility] BMI Calculated 27.2 08/28/2018 [facility] Weight 63.182 08/28/2018 [facility] Height 152.4 cm 08/28/2018 [facility] Respitory Rate 16 08/28/2018 [facility] Systolic (mm Hg) 152 08/28/2018 [facility] Diastolic (mm Hg) 71 08/28/2018 [facility] Heart Rate 69 08/28/2018 [facility] BMI Calculated 29.15 07/17/2018 [facility] Weight 65.455 07/17/2018 [facility] Height 149.86 cm 07/17/2018 [facility] Systolic (mm Hg) 144 07/17/2018 [facility] Diastolic (mm Hg) 62 07/17/2018 [facility] Heart Rate 68 07/17/2018 [facility] BMI Calculated 27.59 06/12/2018 [facility] Weight 64.091 06/12/2018 [facility] Height 152.4 cm 06/12/2018 [facility] Heart Rate 69 06/12/2018 [facility] Systolic (mm Hg) 169 06/12/2018 [facility] Diastolic (mm Hg) 74 06/12/2018 [facility] Encounters Location Location Encounter Encounter Reason Attending ADM DC Status Source Details Type Number For Provider Date Date Visit Outpatient [id number] RIANA 06/12 [facility] [facility] Outpatient [id number] Riana 06/12 06/13 [facility] [place] Outpatient [id number] RIANA 07/17 [facility] [place] MNA Outpatient [id number] Riana 07/17 07/18 [facility] Neurology [facility] [place] MNA Outside [id number] 08/05 08/07 [facility] /2017 [place] Records Outpatient [id number] RIANA 08/28 [facility] [place] [facility] Outpatient [id number] Riana 08/28 08/29 [facility] Neurology [facility] [place] Outpatient [id number] RIANA 10/30 [facility] [place] Outpatient [id number] Riana 12/16 [facility] [place] [facility] Outpatient [id number] Riana 12/16 12/17 [facility] Neurology [facility] [place] MNA Phone [id number] 12/22 12/24 [facility] Neurology [facility] [place] Outpatient [id number] Riana 01/12 [facility] [place] MNA Outpatient [id number] Riana 01/12 01/13 [facility] Neurology [facility] [place] Procedures Procedure Code Date Perfomer Comments Source Laser eye surgery [id number] [facility] Nephrectomy [id number] [facility] Temporal artery [id number] [facility] biopsy Assessment and Plan No Data Provided for This Section Plan of Care No Data Provided for This Section Social History Social History Date Source Social History TypeResponse 06/12/2018 [facility] Alcohol Never Smoking Status Never smoker; Exposure to Tobacco Smoke Unable to obtain; Cigarette Smoking Last 365 Days Unable to obtain; Reg Smoking Cessation Counseling No entered on: 01/12/19 Family History No Data Provided for This Section Advance Directives No Data Provided for This Section Functional Status No Data Provided for This Section
--- OUTSIDE RECORDS SUMMARY | 2019-04-27 20:22 | XMS REPORT | Summary of Care ---
:1940 Author Organization [facility] Neurology [place] Address [address] [place] [address]- Encounter [facility] Emery(PAUL) [id number] Date(s): 08/28/18 - 08/28/18 [facility] [place] [address] [place] [address]- [phone] Discharge Disposition: Home or Self Care Attending Physician: Slade Ryan MD Referring Physician: Toby Parks MD Vital Signs Most recent to oldest [Reference Range]: 1 Height 152.4 cm (08/28/18 11:21 AM) Blood Pressure [90-140/60-90 mmHg] 152/71 mmHg *HI* (08/28/18 11:21 AM) Respiratory Rate [14-20 BRMIN] 16 BRMIN (08/28/18 11:21 AM) Peripheral Pulse Rate [60-100 bpm] 69 bpm (08/28/18 11:21 AM) Weight 63.182 kg (08/28/18 11:21 AM) Body Mass Index 27.2 m2 (08/28/18 11:21 AM) Problem List Condition Effective Dates Status Health Status Informant Meningioma(Confirmed) Active Chronic UTI(Confirmed) Active Diabetes mellitus(Confirmed) Active Giant cell arteritis(Confirmed) Active Headache(Confirmed) Active Hemifacial spasm(Confirmed) Active History of heart attack(Confirmed) Resolved Hypothyroidism(Confirmed) Active Neuropathy(Confirmed) Active Allergies, Adverse Reactions, Alerts Substance Reaction Severity Status morphine Active Demerol Active Medications Actemra 162 mg/0.9 mL subcutaneous solution 162 mg, SUB-Q, 0 Refill(s) Start Date: 08/28/18 Status: OrderedNamenda 5 mg oral tablet 10 mg=2 tab, PO, BID, # 120 tab, 3 Refill(s), Pharmacy: [facility] Start Date: 08/28/18 Stop Date: 12/26/18 Status: Ordered Results No data available for this section Immunizations No data available for this section Procedures Procedure Date Related Diagnosis Body Site Status Laser eye surgery Completed Nephrectomy Completed Temporal artery biopsy Completed Social History Social History Type Response Alcohol Never Smoking Status Never smoker; Exposure to Tobacco Smoke Unable to obtain; Cigarette Smoking Last 365 Days Unable to obtain; Reg Smoking Cessation Counseling No entered on: 01/12/19 Assessment and Plan No data available for this section
--- OUTSIDE RECORDS SUMMARY | 2019-04-27 20:23 | XMS REPORT | Summary of Care ---
:1940 Author Organization [facility] Neurology [place] Address [address] [place] [address]- Encounter HQ Encntr_alias(FIN) [id number] Date(s): 08/05/18 - 08/06/18 [facility] [address] [place] [address]- [phone] Vital Signs No data available for this section Problem List Condition Effective Dates Status Health Status Informant Meningioma(Confirmed) Active Chronic UTI(Confirmed) Active Diabetes mellitus(Confirmed) Active Giant cell arteritis(Confirmed) Active Headache(Confirmed) Active Hemifacial spasm(Confirmed) Active History of heart attack(Confirmed) Resolved Hypothyroidism(Confirmed) Active Neuropathy(Confirmed) Active Allergies, Adverse Reactions, Alerts Substance Reaction Severity Status morphine Active Demerol Active Medications No data available for this section Results No data available for this section [...]
[2019-04-27 23:03] LABS: Absolute Lymphocytes (CBC) 1.1 K/uL (0.7-4.9); Basophils % 0.6 % (0-1.3); Hematocrit 41.5 % (36.0-45.0); RBC Red Blood Cell Count 4.09 M/uL (3.86-4.86)
[2019-04-27 23:05] LABS: Protime INR 1.04
[2019-04-27 23:21] LABS: Albumin 3.1 g/dL (3.4-5.0); Bilirubin Total 0.6 mg/dL (0.2-1.0); Potassium 3.9 mmol/L (3.5-5.1); Protein, Total 5.5 g/dL (6.4-8.2)
[2019-04-27] MEDS ORDERED: FENTANYL CITR 100 MCG/2 ML ONE (23:27)
[2019-04-27] MEDS ORDERED: ONDANSETRON 4 MG/2 ML VIAL ONE (23:27)
--- NOTE | 2019-04-28 01:03 | ER ---
Nurse's Notes [facility] Name: Radha Ocampo Age: 78 yrs Sex: Female : 1940 Arrival Date: 04/27/2019 Time: 20:23 Bed 16 Private MD: Diagnosis: Cellulitis of left lower limb Presentation: 04/27 21:05 Presenting complaint: Patient states: my leg is hurting and swollen started today rr5 denies any trauma. pain score 05/27. 21:05 Transition of care: patient was not received from another setting of care. Onset of rr5 symptoms was April 27, 2019. Risk Assessment: Do you want to hurt yourself or someone else? Patient reports no desire to harm self or others. Initial Sepsis Screen: Does the patient meet any 2 criteria? No. Patient's initial sepsis screen is negative. Does the patient have a suspected source of infection? No. Patient's initial sepsis screen is negative. Note redness, swollen warm to touch left ankle area on palpataion. Care prior to arrival: None. 21:05 Method Of Arrival: Wheelchair rr5 21:05 Acuity: CIARA 3 rr5 Historical: - Allergies: 21:19 meperidine HCl (rash); rr5 21:19 Morphine; rr5 - Home Meds: 21:19 aspirin 81 mg Oral TbEC 1 tab once daily [Active]; losartan 100 mg Oral tab 1 tab once rr5 daily [Active]; levothyroxine 75 mcg tab 1 tab once daily [Active]; ranitidine Oral [Active]; memantine oral oral [Active]; aplha lipoic acid [Active]; benfotiamine multi vitamins [Active]; mitochondrial [Active]; urinary tract essentials [Active]; Tramadol Oral [Active]; actemra [Active]; atorvastatin oral oral [Active]; sertraline oral oral [Active]; Valtrex Oral [Active]; Prednisone Oral [Active]; d3 vitamin [Active]; areds [Active]; Furosemide Oral [Active]; Lyrica Oral [Active]; Diltiazem Oral [Active]; benfotiamine [Active]; cranberry oral oral [Active]; mitochondrial [Active]; - PMHx: 21:19 Depression; Hyperlipidemia; Hypertension; Hypothyroidism; renal cell carcinoma 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 - Social history:: Smoking status: Patient/guardian denies using tobacco, Patient/guardian denies using alcohol, street drugs. - Ebola Screening: : Patient negative for fever greater than or equal to 101.5 degrees Fahrenheit, and additional compatible Ebola Virus Disease symptoms Patient denies exposure to infectious person Patient denies travel to an Ebola-affected area in the 21 days before illness onset. Screenin:00 Abuse screen: Denies threats or abuse. Denies injuries from another. Nutritional rr5 screening: No deficits noted. Tuberculosis screening: No symptoms or risk factors identified. Fall Risk IV access (20 points). Gait- Impaired (20 pts.). Total [place] Fall Scale indicates Low Risk Score (25-44 pts). Fall prevention measures have been instituted. Side Rails Up X 2 Placed close to Nursing Station Frequent Obs/Assesments occuring Family Present and informed to notify staff if they need to leave bedside As available Patient and Family Educated on Fall Prevention Program and strategies. Assessment: 21:05 General: Appears in no apparent distress. uncomfortable, Behavior is calm, cooperative, rr5 appropriate for age. Pain: Complains of pain in left leg Pain does not radiate. Pain currently is 10 out of 10 on a pain scale. Quality of pain is described as aching, Pain began gradually, Is intermittent. 21:05 Neuro: Level of Consciousness is awake, alert, obeys commands, Oriented to person, rr5 place, time, situation, Appropriate for age. Cardiovascular: Capillary refill < 3 seconds Patient's skin is warm and dry. Respiratory: Airway is patent Respiratory effort is even, unlabored, Respiratory pattern is regular, symmetrical. GI: No signs and/or symptoms were reported involving the gastrointestinal system. : No signs and/or symptoms were reported regarding the genitourinary system. EENT: No signs and/or symptoms were reported regarding the EENT system. Derm: Skin is fragile, is thin, Skin temperature is warm. Musculoskeletal: Swelling present in left leg redness warm to touch left leg. 21:40 Reassessment: ultrasound at bedside. rr5 22:30 Reassessment: Patient appears in no apparent distress at this time. awaiting for rr5 results. 22:50 Reassessment: Patient appears in no apparent distress at this time. Patient and/or rr5 family updated on plan of care and expected duration. Pain level reassessed. Patient is alert, oriented x 3, equal unlabored respirations, skin warm/dry/pink. laboratory resend stickers. needs to recollect. blood extracted. reassess by ED provider ultrasound shows no clot findings. awaiting now for the blood results. 23:20 Reassessment: patient as verbalized if i move my left foot that is the time it hurts rr5 but right now I'm okay. no need for the pain medication. 04/28 00:35 Reassessment: Patient appears in no apparent distress at this time. Patient and/or rr5 family updated on plan of care and expected duration. Pain level reassessed. Patient is alert, oriented x 3, equal unlabored respirations, skin warm/dry/pink. patient advised admission for ED provider. they agreed to stay and for the plan of care. 01:20 Reassessment: BP 96/48 mmHg ED provider aware with order made and carried out. rr5 02:30 Reassessment: Patient appears in no apparent distress at this time. eyes closed rr5 breathing spontaneously at room air. vitally stable. Patient states symptoms have improved. Vital Signs: 04/27 21:05 BP 98 / 39; Pulse 79; Resp 15; Temp 97.1; Pulse Ox 100% ; Weight 63.5 kg; Height 5 ft. rr5 (152.40 cm); Pain 05/27; 22:00 BP 91 / 40; Pulse 76; Resp 16; Pulse Ox 98% ; rr5 22:58 BP 119 / 40; Pulse 76; Resp 17; Pulse Ox 99% ; rr5 04/28 00:00 BP 96 / 46; Pulse 76; Resp 15; Pulse Ox 96% ; rr5 01:20 BP 96 / 48; Pulse 87; Resp 17; Temp 98.1(O); Pulse Ox 99% on R/A; rr5 02:00 BP 112 / 37; Pulse 70; Resp 17; Temp 98.1; Pulse Ox 97% ; rr5 02:30 BP 110 / 34; Pulse 73; Resp 17; Pulse Ox 96% ; rr5 04/27 21:05 Body Mass Index 27.34 (63.50 kg, 152.40 cm) rr5 ED Course: 04/27 20:23 Patient arrived in ED. cf2 20:54 Roger Miles, JENNIFER is PHCP. pm1 20:54 Logan Neves MD is Attending Physician. pm1 21:07 Kane Arrieta, CONCETTA is Primary Nurse. rr5 21:09 Triage completed. rr5 21:19 Arm band placed on. rr5 21:20 Patient has correct armband on for positive identification. Bed in low position. Call rr5 light in reach. Side rails up X2. Adult w/ patient. Pulse ox on. Sitter at bedside. 21:40 Extremity Venous Uni Ltd US In Process Unspecified. EDMS 21:58 Initial lab(s) drawn, by me, sent to lab. Inserted saline lock: 20 gauge in left jd2 antecubital area, using aseptic technique. Blood collected. 23:48 X-ray completed. Patient tolerated procedure well. kw 23:50 Tib Fib Left XRAY In Process Unspecified. EDMS 23:50 Foot Left 3 View XRAY In Process Unspecified. EDMS 04/28 01:02 Toby Parks MD is Hospitalizing Provider. pm1 01:05 First set of blood cultures drawn by me. rr5 01:35 Second set of blood cultures drawn by lab staff. rr5 01:46 No provider procedures requiring assistance completed. Patient admitted, IV remains in rr5 place. intact, No redness/swelling at site. Administered Medications: 01:30 Drug: NS 0.9% 500 ml Volume: 500 ml; Route: IV; Rate: 1 bolus; Site: left antecubital; rr5 02:29 Follow up: Response: No adverse reaction; IV Status: Completed infusion; IV Intake: rr5 500ml 01:35 Drug: Zosyn 3.375 grams Route: IVPB; Infused Over: 60 mins; Site: left antecubital; rr5 02:35 Follow up: Response: No adverse reaction; IV Status: Completed infusion; IV Intake: rr5 100ml 02:28 Not Given (Patient Refused): Zofran 4 mg IVP once; over 2 minutes rr5 02:29 Not Given (Patient Refused): fentaNYL (PF) 25 mcg IVP once; RASS on ADMIN: Combtv4, rr5 Very Agttd3, Agttd2, Rstlss1, AlertClm0, Drwsy-1, Lt Sdtn-2, Mod Sdtn-3, Dp Sdtn-4, UnArsble-5 Intake: 02:29 IV: 500ml; Total: 500ml. rr5 02:35 IV: 100ml; Total: 600ml. rr5 Output: 04/27 22:30 Urine: 300ml (Voided); Total: 300ml. rr5 Outcome: 04/28 01:02 Decision to Hospitalize by Provider. pm1 02:30 Admitted to Tele accompanied by tech, via stretcher, room 414, with chart, Report rr5 called to jonah 02:30 Condition: stable 02:30 Instructed on the need for admit. 02:44 Patient left the ED. rr5 Signatures: Dispatcher [employer] EDMS Khadijah Edward Patrick, COPIER TECHNICIAN COPIER TECHNICIAN pm1 Carson De La Fuente Raymond, RN RN rr5 Yamila Klein cf2 Corrections: (The following items were deleted from the chart) 01:42 01:20 BP 96 / 48; Pulse 87bpm; Resp 17bpm; Pulse Ox 99% RA; Temp 96.9F; rr5 rr5
--- NOTE | 2019-04-28 01:04 | EDPHYS ---
Physician Documentation [facility] Name: Radha Ocampo Age: 78 yrs Sex: Female : 1940 Arrival Date: 04/27/2019 Time: 20:23 Bed 16 Private MD: ED Physician Logan Neves HPI: 04/27 21:15 This 78 yrs old Female presents to ER via Wheelchair with complaints of Leg pm1 Swelling. 21:15 The patient presents with pain, swelling. The complaints affect the left izquierdo, anterior pm1 aspect of left ankle and dorsum of left foot. Context: The problem was sustained at an office, resulted from an unknown cause. Onset: The symptoms/episode began/occurred today, noticed pain after leaving her PCP office today. Modifying factors: The symptoms are alleviated by elevating leg, the symptoms are aggravated by weight bearing. Associated signs and symptoms: Pertinent positives: calf tenderness, swelling, Pertinent negatives fever, numbness, tingling, vomiting. Treatment prior to arrival includes: no previous treatment. Severity of symptoms: in the emergency department the symptoms are actually worse. The patient has not experienced similar symptoms in the past. The patient has been recently seen by a physician: the patient's primary care provider, Dr. Parks earlier today, with different complaint(s). Historical: - Allergies: 21:19 meperidine HCl (rash); rr5 21:19 Morphine; rr5 - Home Meds: 21:19 aspirin 81 mg Oral TbEC 1 tab once daily [Active]; losartan 100 mg Oral tab 1 tab once rr5 daily [Active]; levothyroxine 75 mcg tab 1 tab once daily [Active]; ranitidine Oral [Active]; memantine oral oral [Active]; aplha lipoic acid [Active]; benfotiamine multi vitamins [Active]; mitochondrial [Active]; urinary tract essentials [Active]; Tramadol Oral [Active]; actemra [Active]; atorvastatin oral oral [Active]; sertraline oral oral [Active]; Valtrex Oral [Active]; Prednisone Oral [Active]; d3 vitamin [Active]; areds [Active]; Furosemide Oral [Active]; Lyrica Oral [Active]; Diltiazem Oral [Active]; benfotiamine [Active]; cranberry oral oral [Active]; mitochondrial [Active]; - PMHx: 21:19 Depression; Hyperlipidemia; Hypertension; Hypothyroidism; renal cell carcinoma 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 - Social history:: Smoking status: Patient/guardian denies using tobacco, Patient/guardian denies using alcohol, street drugs. - Ebola Screening: : Patient negative for fever greater than or equal to 101.5 degrees Fahrenheit, and additional compatible Ebola Virus Disease symptoms Patient denies exposure to infectious person Patient denies travel to an Ebola-affected area in the 21 days before illness onset. ROS: 21:49 Constitutional: Negative for fever, chills, and weight loss, Eyes: Negative for injury, pm1 pain, redness, and discharge, ENT: Negative for injury, pain, and discharge, Neck: Negative for injury, pain, and swelling, Cardiovascular: Negative for chest pain, palpitations, and edema, Respiratory: Negative for shortness of breath, cough, wheezing, and pleuritic chest pain, Abdomen/GI: Negative for abdominal pain, nausea, vomiting, diarrhea, and constipation, Back: Negative for injury and pain. 21:49 Neuro: Negative for headache, weakness, numbness, tingling, and seizure. 21:49 MS/extremity: Positive for pain, swelling, of the dorsum of left foot and left ankle and left izquierdo. 21:49 Skin: Positive for discoloration, erythema, swelling, of the dorsum of left foot and left ankle and left izquierdo. Exam: 21:49 Constitutional: This is a well developed, well nourished patient who is awake, alert, pm1 and in no acute distress. Head/Face: Normocephalic, atraumatic. Neck: Trachea midline, no thyromegaly or masses palpated, and no cervical lymphadenopathy. Supple, full range of motion without nuchal rigidity, or vertebral point tenderness. No Meningismus. Chest/axilla: Normal chest wall appearance and motion. Nontender with no deformity. No lesions are appreciated. Cardiovascular: Regular rate and rhythm with a normal S1 and S2. No gallops, murmurs, or rubs. Normal PMI, no JVD. No pulse deficits. Respiratory: Lungs have equal breath sounds bilaterally, clear to auscultation and percussion. No rales, rhonchi or wheezes noted. No increased work of breathing, no retractions or nasal flaring. Abdomen/GI: Soft, non-tender, with normal bowel sounds. No distension or tympany. No guarding or rebound. No evidence of tenderness throughout. Back: No spinal tenderness. No costovertebral tenderness. Full range of motion. 21:49 Musculoskeletal/extremity: Extremities: grossly normal except: noted in the dorsum of left foot and left ankle and left izquierdo: erythema, swelling, tenderness, DVT Exam: pain, swelling, of the left leg, tenderness. 21:49 Skin: Appearance: normal except for affected area, petechiae, noted on the anterior aspect of left ankle and left izquierdo, swelling, noted on the dorsum of left foot, cellulitis, on the dorsum of left foot and left ankle and left izquierdo. Vital Signs: 21:05 BP 98 / 39; Pulse 79; Resp 15; Temp 97.1; Pulse Ox 100% ; Weight 63.5 kg; Height 5 ft. rr5 (152.40 cm); Pain 10/10; 22:00 BP 91 / 40; Pulse 76; Resp 16; Pulse Ox 98% ; rr5 22:58 BP 119 / 40; Pulse 76; Resp 17; Pulse Ox 99% ; rr5 04/28 00:00 BP 96 / 46; Pulse 76; Resp 15; Pulse Ox 96% ; rr5 01:20 BP 96 / 48; Pulse 87; Resp 17; Temp 98.1(O); Pulse Ox 99% on R/A; rr5 02:00 BP 112 / 37; Pulse 70; Resp 17; Temp 98.1; Pulse Ox 97% ; rr5 02:30 BP 110 / 34; Pulse 73; Resp 17; Pulse Ox 96% ; rr5 04/27 21:05 Body Mass Index 27.34 (63.50 kg, 152.40 cm) rr5 MDM: 04/27 20:57 Patient medically screened. pm1 04/28 01:01 Data reviewed: vital signs. Data interpreted: Pulse oximetry: on room air is 99 %. pm1 Interpretation: normal. Counseling: I had a detailed discussion with the patient and/or guardian regarding: the historical points, exam findings, and any diagnostic results supporting the discharge/admit diagnosis, lab results, radiology results, the need for further work-up and treatment in the hospital. 01:10 Physician consultation: Toby Parks MD was called at 01:10, was contacted at 01:10, pm1 regarding admission, and will see patient Inpatient admission. 04/27 21:12 Order name: CBC with Diff; Complete Time: 01:26 pm1 04/27 21:12 Order name: CMP; Complete Time: 23:24 pm1 04/27 21:03 Order name: Extremity Venous Uni Ltd US pm1 04/27 21:12 Order name: PT-INR; Complete Time: 23:13 pm1 04/27 23:12 Order name: Manual Differential; Complete Time: 01:26 EDMS 04/28 01:00 Order name: Blood Culture Adult (2) pm1 04/27 21:12 Order name: IV Saline Lock; Complete Time: 21:58 pm1 04/27 22:56 Order name: Tib Fib Left XRAY pm1 04/27 22:56 Order name: Foot Left 3 View XRAY pm1 Administered Medications: 01:30 Drug: NS 0.9% 500 ml Volume: 500 ml; Route: IV; Rate: 1 bolus; Site: left antecubital; rr5 02:29 Follow up: Response: No adverse reaction; IV Status: Completed infusion; IV Intake: rr5 500ml 01:35 Drug: Zosyn 3.375 grams Route: IVPB; Infused Over: 60 mins; Site: left antecubital; rr5 02:35 Follow up: Response: No adverse reaction; IV Status: Completed infusion; IV Intake: rr5 100ml 02:28 Not Given (Patient Refused): Zofran 4 mg IVP once; over 2 minutes rr5 02:29 Not Given (Patient Refused): fentaNYL (PF) 25 mcg IVP once; RASS on ADMIN: Combtv4, rr5 Very Agttd3, Agttd2, Rstlss1, AlertClm0, Drwsy-1, Lt Sdtn-2, Mod Sdtn-3, Dp Sdtn-4, UnArsble-5 Disposition: 05:44 Co-signature as Attending Physician, Logan Neves MD I agree with the assessment and tw4 plan of care. Disposition: 04/28/19 01:02 Hospitalization ordered by Toby Parks for Inpatient Admission. Preliminary diagnosis is Cellulitis of left lower limb. - Bed requested for Telemetry/MedSurg (Inpatient). - Status is Inpatient Admission. rr5 - Condition is Stable. - Problem is new. - Symptoms have improved. UTI on Admission? No Signatures: Dispatcher [employer] EDElly Flaherty, RN RN Roger Miles, VEHICLE WASHER VEHICLE WASHER pm1 Logan Neves MD MD tw4 Kane Arrieta RN RN rr5 Corrections: (The following items were deleted from the chart) 01:45 01:02 Hospitalization Ordered by Toby Parks MD for Inpatient Admission. Preliminary cg diagnosis is Cellulitis of left lower limb. Bed requested for Telemetry/MedSurg (Inpatient). Status is Inpatient Admission. Condition is Stable. Problem is new. Symptoms have improved. UTI on Admission? No. pm1 02:44 01:45 04/28/2019 01:02 Hospitalization Ordered by Toby Parks MD for Inpatient rr5 Admission. Preliminary diagnosis is Cellulitis of left lower limb. Bed requested for Telemetry/MedSurg (Inpatient). Status is Inpatient Admission. Condition is Stable. Problem is new. Symptoms have improved. UTI on Admission? No. cg
[2019-04-28 01:25] LABS: Blood Morphology Comment NOT SEEN (NOT SEEN); Platelet Estimate ADEQ
[2019-04-28] MEDS ORDERED: NA CHLORIDE 0.9% 500 ML ONE (01:26)
[2019-04-28] MEDS ORDERED: PIPER/TAZO/NS 3.375gm 3.375 GM/100 ML BAG ONE ×2 (01:27→04:36)
[2019-04-28] MEDS ORDERED: TRAMADOL HCL 50 MG TAB PO PRN (02:56)
[2019-04-28] MEDS ORDERED: ONDANSETRON 4 MG/2 ML VIAL IV PRN (02:56)
[2019-04-28 04:39] VITALS: BMI 27.3
[2019-04-28] MEDS ORDERED: PIPER/TAZO/NS 3.375gm 3.375 GM/100 ML BAG IVPB SCH (06:00)
[2019-04-28 07:29] LABS: Urine Appearance CLEAR; Urine Bilirubin NEGATIVE (NEG); Urine Blood NEGATIVE (NEG); Urine Color YELLOW; Urine Glucose NEGATIVE (NEG); Urine Protein NEGATIVE (NEG); Urine Specific Gravity 1.025 (1.005-1.030); Urine pH 5.5 (5.0-7.0)
[2019-04-28 07:54] LABS: Urine Microscopic Reflex ORDER UMIC
[2019-04-28 08:04] LABS: Urine Bacteria <20 /HPF (<20); Urine Culture Reflex Order REFLEXED; Urine RBC <5 /HPF (NONE SEEN)
--- NOTE | 2019-04-28 08:07 | RAD REPORT ---
EXAM DESCRIPTION: Radha Bernal Left04/27/2019 11:49 pm CLINICAL HISTORY: Left leg pain FINDINGS: No fracture is seen. No bony lesion seen. Edema is present subcutaneous tissues
--- NOTE | 2019-04-28 08:13 | RAD REPORT ---
EXAM DESCRIPTION: RAD - Foot Left 3 View - 04/27/2019 11:49 pm CLINICAL HISTORY: Left Foot pain FINDINGS: No fracture is seen Large calcaneal spurs present Osteoporosis. Vascular calcifications seen On the lateral view the base of the fifth metatarsal does not clearly align with the cuboid. I suspec t this is not significant. However if patient has clinical symptoms to suggest a dislocation then CT scan would be recommended
--- NOTE | 2019-04-28 08:13 | RAD REPORT ---
EXAM DESCRIPTION: USExtremochoa Venous Uni Ltd04/27/2019 9:34 pm CLINICAL HISTORY: left leg pain and swelling. COMPARISON: None. FINDINGS: Left common femoral, superficial femoral, popliteal and posterior tibial veins are compre ssible and demonstrate augmentation. Doppler demonstrates good flow. IMPRESSION: No evidence of deep venous thrombosis involving the left lower extremity.
[2019-04-28] MEDS ORDERED: TOCILIZUMAB 162 MG SQ SCH (08:30)
[2019-04-28] MEDS ORDERED: PREGABALIN 50 MG CAP PO SCH (09:00)
[2019-04-28] MEDS ORDERED: VANCOMYCIN 1.25 GM in NA CHLORIDE 0.9% 250 ML IVPB SCH (09:00)
[2019-04-28] MEDS ORDERED: VANCOMYCIN 1GM/D5W 200 ML IV SCH (09:00)
[2019-04-28] MEDS: MEMANTINE HCL 10 MG TABLET PO SCH ×2 (09:25→20:23)
[2019-04-28] MEDS: HYDROCODONE/APAP 5/325 MG TAB PO PRN ×3 (09:25→20:23)
[2019-04-28] MEDS: VALACYCLOVIR 500 MG TAB PO SCH (12:09)
[2019-04-28] MEDS: predniSONE 10 MG TAB PO SCH (12:09)
[2019-04-28] MEDS ORDERED: PREGABALIN 25 MG PO SCH (13:45)
--- NOTE | 2019-04-28 17:00 | P.HP ---
Certification for Inpatient Patient admitted to: Inpatient With expected LOS: >2 Midnights Practitioner: I am a practitioner with admitting privileges, knowledge of patient current condition, hospital course, and medical plan of care. Services: Services provided to patient in accordance with Admission requirements found in Title 42 Section 412.3 of the Code of Federal Regulations Patient History Date of Service: 04/28/19 Reason for admission: L LEG PAIN. REDNESS. History of Present Illness: MS. WELLER HAS SEVERE PAIN IN R LEG AND REDNESS. SHE DID NOT INJURE IT. Allergies meperidine HCl [From Demerol] Allergy (Verified 03/30/17 20:38) Unknown Morphine Allergy (Uncoded 03/30/17 20:38) Unknown Home Medications: Doxepin HCl [Sinequan] 10 mg PO BEDTIME 04/28/19 Memantine HCl [Namenda] 10 mg PO BID 04/28/19 Pregabalin [Lyrica] 25 mg PO DIRECTED 04/28/19 Tocilizumab [Actemra] 162 mg SQ DIRECTED 04/28/19 Valacyclovir [Valtrex*] 500 mg PO LUNCH 04/28/19 predniSONE [Deltasone] 10 mg PO LUNCH 04/28/19 - Past Medical/Surgical History Has patient received pneumonia vaccine in the past: Yes Diabetic: Yes -: Herpes -: Hypothyroidisim -: Hypertension -: High Cholesterol -: Depression -: GERD -: Giant Cell Arteritis -: Kidney Cancer -: Neuropathy -: DM (chemical induced) -: Nephrectomy Right -: Gastric bypass -: Hysterectomy -: Hernia Repair - Family History Father -: Cancer Notes: - Lung Cancer Mother Notes: - Congestive heart failure, Diabetes - Social History Smoking Status: Never smoker Alcohol use: No CD- Drugs: No Caffeine use: No Place of Residence: Home Review of Systems 10-point ROS is otherwise unremarkable Physical Examination - Vital Signs Temperature: 97.1 F Blood Pressure: 116/55 Pulse: 67 Respirations: 16 Pulse Ox (%): 95 - Physical Exam General: Alert, Moderate distress, Obese HEENT: Atraumatic, PERRLA, Mucous membr. moist/pink, EOMI, Sclerae nonicteric Neck: Supple, 2+ carotid pulse no bruit, No LAD, Without JVD or thyroid abnormality Respiratory: Clear to auscultation bilaterally, Normal air movement Cardiovascular: Regular rate/rhythm, Normal S1 S2 Gastrointestinal: Normal bowel sounds, No tenderness Musculoskeletal: No tenderness Integumentary: No rashes, Tenderness/swelling (L LEG, EDEMA. MOD TENDER. LOWER HALF OF LEG IS ERYTHEMATOUS. ) Neurological: Normal speech Lymphatics: No axilla or inguinal lymphadenopathy - Studies Laboratory Data (last 24 hrs) 04/27/19 22:50: PT 12.3, INR 1.04 04/27/19 22:50: Sodium 142, Potassium 3.9, BUN 23 H, Creatinine 1.25, Glucose 128 H, Total Bilirubin 0.6, AST 21, ALT 30, Alkaline Phosphatase 79 04/27/19 22:50: WBC 15.2 H, Hgb 14.1, Hct 41.5, Plt Count 141 L Assessment and Plan - Problems (Diagnosis) (1) Cellulitis of leg, except foot Current Visit: Yes Status: Acute Plan: ZOSYN STARTED BY ER. SHE MAY HAVE MRSA. ADD VANCOMYCIN SHE IS IN SEVERE PAIN. DOPPLER IS NEGATIVE FOR DVT. (2) Chronic headaches Onset Date: 04/07/18 Current Visit: No Status: Acute Plan: TRIED MANY MEDS. BOTOX FROM NEUROLOGY IS STILL NOT HELPING. Qualifiers: Headache type: tension-type Intractability: intractable Qualified Code(s) : G44.221 - Chronic tension-type headache, intractable - Advance Directives Does patient have a Living Will: No Does patient have a Durable POA for Healthcare: No
[2019-04-28] MEDS: PIPER/TAZO/NS 3.375gm 3.375 GM/100 ML BAG IVPB SCH (17:12)
[2019-04-28] MEDS: DOXEPIN HCL 10 MG CAP PO SCH (20:22)
[2019-04-29] MEDS: HYDROCODONE/APAP 5/325 MG TAB PO PRN ×3 (00:44→17:18)
[2019-04-29] MEDS: PIPER/TAZO/NS 3.375gm 3.375 GM/100 ML BAG IVPB SCH ×3 (00:44→17:19)
[2019-04-29 05:24] LABS: Basophils % 0.5 % (0-1.3); Hematocrit 36.3 % (36.0-45.0); Lymphocytes % 13.8 % (15.3-44.8); MPV 8.8 fL (7.6-11.3); RBC Red Blood Cell Count 3.65 M/uL (3.86-4.86)
[2019-04-29] MEDS: MEMANTINE HCL 10 MG TABLET PO SCH ×2 (09:29→22:03)
[2019-04-29] MEDS: VANCOMYCIN 1.25 GM in NA CHLORIDE 0.9% 250 ML IVPB SCH (09:29)
[2019-04-29] MEDS: NACHLORIDE 0.45% 1,000 ML IV SCH ×2 (09:29→20:20)
[2019-04-29] MEDS: VALACYCLOVIR 500 MG TAB PO SCH (12:00)
[2019-04-29] MEDS: predniSONE 10 MG TAB PO SCH (12:00)
--- NOTE | 2019-04-29 12:49 | P.PN ---
Subjective Date of Service: 04/29/19 Chief Complaint: L LEG PAIN. REDNESS. Subjective: Improving SHE IS STILL HURTING IN LEG BUT BETTER THAN YESTERDAY. Review of Systems 10-point ROS is otherwise unremarkable Integumentary: As per HPI Physical Examination - Vital Signs Temperature: 97 F Blood Pressure: 185/77 Pulse: 73 Respirations: 18 Pulse Ox (%): 98 - Physical Exam General: Moderate distress HEENT: Atraumatic, PERRLA, EOMI Neck: Supple, JVD not distended Respiratory: Clear to auscultation bilaterally, Normal air movement Cardiovascular: Regular rate/rhythm, Normal S1 S2 Gastrointestinal: Normal bowel sounds, No tenderness Musculoskeletal: No tenderness Integumentary: Erythema (L LEG SEVERE TENDRENESS IN CERTAIN AREAS. NO TENSION, NO FLUCTUATION. ), Warmth Neurological: Normal speech, Normal tone, Normal affect Lymphatics: No axilla or inguinal lymphadenopathy - Studies Medications List Reviewed: Yes Assessment And Plan - Current Problems (Diagnosis) (1) Cellulitis of leg, except foot Current Visit: Yes Status: Acute Plan: ZOSYN STARTED BY ER. SHE MAY HAVE MRSA. ADD VANCOMYCIN SHE IS IN SEVERE PAIN. DOPPLER IS NEGATIVE FOR DVT. HAS MRSA CHARACTER TO INFECTION WITH SEVERE PAIN. (2) Chronic headaches Onset Date: 04/07/18 Current Visit: No Status: Acute Plan: TRIED MANY MEDS. BOTOX FROM NEUROLOGY IS STILL NOT HELPING. Qualifiers: Headache type: tension-type Intractability: intractable Qualified Code(s) : G44.221 - Chronic tension-type headache, intractable
[2019-04-29] MEDS: DOXEPIN HCL 10 MG CAP PO SCH (20:25)
[2019-04-29] MEDS ORDERED: NACHLORIDE 0.45% 1,000 ML IV SCH (22:00)
[2019-04-29] MEDS: SERTRALINE HCL 100 MG TAB PO SCH (22:03)
[2019-04-29] MEDS ORDERED: cloNIDine HCl 0.1 MG TAB PO PRN (22:14)
[2019-04-30] MEDS: LOSARTAN POTASSIUM 50 MG TABLET PO SCH ×2 (00:01→08:58)
[2019-04-30] MEDS: HYDROCODONE/APAP 5/325 MG TAB PO PRN ×4 (00:07→22:51)
[2019-04-30] MEDS: PIPER/TAZO/NS 3.375gm 3.375 GM/100 ML BAG IVPB SCH ×2 (00:28→09:03)
[2019-04-30] MEDS: MEMANTINE HCL 10 MG TABLET PO SCH ×2 (08:57→20:04)
[2019-04-30] MEDS: SERTRALINE HCL 100 MG TAB PO SCH (08:57)
[2019-04-30] MEDS: FUROSEMIDE 20 MG TABLET PO SCH (08:57)
[2019-04-30] MEDS ORDERED: DILTIAZEM HCL 120 MG SR CAP PO SCH (09:00)
[2019-04-30] MEDS ORDERED: SERTRALINE HCL 100 MG TAB PO SCH (09:00)
[2019-04-30] MEDS: VALACYCLOVIR 500 MG TAB PO SCH ×2 (12:34→20:04)
[2019-04-30] MEDS: predniSONE 10 MG TAB PO SCH (12:35)
[2019-04-30] MEDS: VANCOMYCIN 1.25 GM in NA CHLORIDE 0.9% 250 ML IVPB SCH (20:04)
[2019-04-30] MEDS: PREGABALIN 50 MG CAP PO SCH (20:05)
[2019-04-30] MEDS: DOXEPIN HCL 10 MG CAP PO SCH (20:06)
[2019-04-30] MEDS ORDERED: PREGABALIN 50 MG CAP PO SCH (21:00)
[2019-05-01] MEDS: DILTIAZEM HCL 120 MG SR CAP PO SCH (08:51)
[2019-05-01] MEDS: MEMANTINE HCL 10 MG TABLET PO SCH ×2 (08:52→20:15)
[2019-05-01] MEDS: predniSONE 10 MG TAB PO SCH (08:53)
[2019-05-01] MEDS: PREGABALIN 50 MG CAP PO SCH ×2 (08:54→20:15)
[2019-05-01] MEDS: LOSARTAN POTASSIUM 50 MG TABLET PO SCH (08:55)
[2019-05-01] MEDS: SERTRALINE HCL 100 MG TAB PO SCH (08:56)
[2019-05-01] MEDS: FUROSEMIDE 20 MG TABLET PO SCH (08:56)
[2019-05-01] MEDS: VALACYCLOVIR 500 MG TAB PO SCH ×3 (08:56→20:15)
--- NOTE | 2019-05-01 16:26 | PN ---
Subjective: Ms. Ocampo is feeling lot better. Her pain has improved. Denies any chest pain, nause a, vomiting. Physical Examination: Vital Signs: Blood pressure 140/55, pulse is 64. HEENT: No JVD. No carotid bruits. Chest: Clear. Heart: Regular. Extremities: Left lower limb cellulitis has significantly improved and her pain and tenderness have improved. Her skin was tender in the region and has 2 areas of blister changes. Assessment And Plan: 1.Cellulitis, superadded to shingles. Continue vancomycin IV. I may discharge her tomorrow on oral medications. 2.Shingles and pain. I have advised her Lyrica 50 mg p.o. b.i.d., which has improved her pain. She was trying to taper off, but I believe she needs it at this point. 3.Chronic headaches. She is getting Botox without any help. 4.Multiple other medical problems including hypertension, neuropathy, cervical radiculopathy, stable currently. CLYDE/ANTONIO Voice ID: [id number] Report ID: [id number]
[2019-05-01] MEDS: HYDROCODONE/APAP 5/325 MG TAB PO PRN (16:39)
[2019-05-01] MEDS: DOXEPIN HCL 10 MG CAP PO SCH (20:16)
[2019-05-02 06:00] LABS: Basophils % 0.9 % (0-1.3); Hematocrit 37.4 % (36.0-45.0); Lymphocytes % 24.2 % (15.3-44.8); MPV 8.2 fL (7.6-11.3); RBC Red Blood Cell Count 3.75 M/uL (3.86-4.86)
[2019-05-02 06:13] LABS: Potassium 3.5 mmol/L (3.5-5.1)
[2019-05-02] MEDS: VANCOMYCIN 1.25 GM in NA CHLORIDE 0.9% 250 ML IVPB SCH (08:00)
[2019-05-02] MEDS: DILTIAZEM HCL 120 MG SR CAP PO SCH (08:49)
[2019-05-02] MEDS: VALACYCLOVIR 500 MG TAB PO SCH ×2 (08:50→13:06)
[2019-05-02] MEDS: FUROSEMIDE 20 MG TABLET PO SCH (08:50)
[2019-05-02] MEDS: LOSARTAN POTASSIUM 50 MG TABLET PO SCH (08:50)
[2019-05-02] MEDS: PREGABALIN 50 MG CAP PO SCH (08:50)
[2019-05-02] MEDS: MEMANTINE HCL 10 MG TABLET PO SCH (08:50)
[2019-05-02] MEDS: SERTRALINE HCL 100 MG TAB PO SCH (08:51)
[2019-05-02] MEDS: predniSONE 10 MG TAB PO SCH (11:03)
--- NOTE | 2019-05-02 11:38 | P.DS ---
Admission Date: 04/28/19 Discharge Date: 05/02/19 Disposition: ROUTINE DISCHARGE Discharge Condition: FAIR Reason for Admission: L LEG PAIN. REDNESS. - Problems (1) Cellulitis of leg, except foot Current Visit: Yes Status: Acute (2) Chronic headaches Onset Date: 04/07/18 Current Visit: No Status: Acute Qualifiers: Headache type: tension-type Intractability: intractable Qualified Code(s) : G44.221 - Chronic tension-type headache, intractable Brief History of Present Illness: MS. WELLER HAS SEVERE PAIN IN R LEG AND REDNESS. SHE DID NOT INJURE IT. Hospital Course: JACKIE IS DOING A LOT BETTER. SHE HAD CELLULITIS ON L LEG ON TOP OF SHINGLES THAT GAVE HER NEURALGIC PAIN. SHE IS DOING GREAT ON VANCOMYCIN IV AND VALTREX PO IN ADDITION TO LYRICA. SHE IS DISCHARGED IN STABLE CONDITION. FU IN OFFICE IN ONE WEEK. Vital Signs/Physical Exam: Temp Pulse Resp BP Pulse Ox 97 F 69 16 160/71 H 96 05/02/19 04:00 05/02/19 08:50 05/02/19 04:00 05/02/19 08:50 05/02/19 04:00 Laboratory Data at Discharge: WBC 8.3 K/uL (4.3-10.9) D 05/02/19 05:51 Hgb 12.8 g/dL (12.0-15.0) 05/02/19 05:51 Hct 37.4 % (36.0-45.0) 05/02/19 05:51 Plt Count 129 K/uL (152-406) L 05/02/19 05:51 PT 12.3 SECONDS (9.5-12.5) 04/27/19 22:50 INR 1.04 04/27/19 22:50 Sodium 145 mmol/L (136-145) 05/02/19 05:51 Potassium 3.5 mmol/L (3.5-5.1) 05/02/19 05:51 BUN 19 mg/dL (7-18) H 05/02/19 05:51 Creatinine 0.86 mg/dL (0.55-1.3) 05/02/19 05:51 Glucose 103 mg/dL (74-106) 05/02/19 05:51 Total Bilirubin 0.6 mg/dL (0.2-1.0) 04/27/19 22:50 AST 21 U/L (15-37) 04/27/19 22:50 ALT 30 U/L (12-78) 04/27/19 22:50 Alkaline Phosphatase 79 U/L (45-117) 04/27/19 22:50 Home Medications: Doxepin HCl [Sinequan*] 10 mg PO BEDTIME 04/28/19 Memantine HCl [Namenda*] 10 mg PO BID 04/28/19 Pregabalin [Lyrica*] 25 mg PO DIRECTED 04/28/19 Tocilizumab [Actemra] 162 mg SQ DIRECTED 04/28/19 Valacyclovir [Valtrex*] 500 mg PO LUNCH 04/28/19 predniSONE [Prednisone*] 10 mg PO LUNCH 04/28/19 Sertraline [Zoloft*] 100 mg PO DAILY 04/29/19 Diltiazem Cd [Cardizem Cd*] 240 mg PO DAILY #90 cap 05/02/19 Furosemide [Lasix*] 20 mg PO DAILY tab 05/02/19 Smz./Tmp. [Bactrim Ds 800 MG/160 MG] 1 tab PO BID #20 tab 05/02/19 New Medications: Diltiazem Cd [Cardizem Cd*] 240 mg PO DAILY #90 cap Smz./Tmp. [Bactrim Ds 800 MG/160 MG] 1 tab PO BID #20 tab
[2019-05-02 13:10] VITALS: O2SAT 95
[2019-05-02 13:13] VITALS: BP 144/58; TEMP 97.1
== END 2019-05-02 13:30 | disposition home or self-care (01) | DRG 603 ==
LOC: ER 20:20 → ERHOLD 04-28 01:23 → 4TH 04-28 02:33
PROVIDERS: ADMIT Internal Medicine; ATTEND Internal Medicine
DX: L03.116 Cellulitis of left lower limb (principal); B02.9 Zoster without complications; I10 Essential (primary) hypertension; G62.9 Polyneuropathy, unspecified; M54.12 Radiculopathy, cervical region; G44.221 Chronic tension-type headache, intractable; E03.9 Hypothyroidism, unspecified; Z85.528 Personal history of other malignant neoplasm of kidney; Z90.5 Acquired absence of kidney; Z98.84 Bariatric surgery status
CPT/HCPCS: 36415; 80048; 80053; 80202; 81003; 81015; 82962; 84145; 85025; 85610; 87040; 87086; 87088; 93971; 96365; 99285; J2405; J2543; J3010; J7512

== ENCOUNTER 2020-03-25 09:46 | Inpatient (IN) | payer OTHER ==
[2020-03-25] MEDS ORDERED: NA CHLORIDE 0.9% 1,000 ML ONE (10:23)
[2020-03-25 10:35] LABS: Absolute Lymphocytes (CBC) 1.7 K/uL (0.7-4.9); Basophils % 0.8 % (0-1.3); Hematocrit 43.7 % (36.0-45.0); Lymphocytes % 11.7 % (15.3-44.8); MPV 9.3 fL (7.6-11.3)
[2020-03-25 10:42] LABS: Albumin 3.2 g/dL (3.4-5.0); Bilirubin Direct 0.3 mg/dL (0-0.2); Bilirubin Total 0.8 mg/dL (0.2-1.0); Potassium 3.4 mmol/L (3.5-5.1)
--- NOTE | 2020-03-25 11:46 | RAD REPORT ---
EXAM DESCRIPTION: CT - Abdomen Pelvis W Contrast - 03/25/2020 11:28 am CLINICAL HISTORY: ABD PAIN COMPARISON: Abdomen Pelvis W Contrast dated 10/20/2018; CT ABD PELVIS W CONTRAST dated 06/03/2009 TECHNIQUE: Biphasic, helical CT imaging of the abdomen and pelvis was performed following 100 ml non -ionic IV contrast. No oral contrast administered. All CT scans are performed using dose optimization technique as appropriate and may include automated exposure control or mA/KV adjustment according to patient size. FINDINGS: No suspicious findings in the lung bases. The liver, spleen, and pancreas show no suspicious findings. Gallbladder is absent. No abnormal bilia ry tree dilatation. The patient's posterior right flank hernia at the level of the liver has not akers ged. This hernia may be related to prior right nephrectomy. Right kidney is absent. Left kidney shows normal function. No hydronephrosis, mass or pyelonephritis of the left kidney. Urinary bladder is mostly contracted limiting assessment. Right-sided bladder div erticulum again noted. There is a small diverticulum lateral left base as well. Uterus is absent. The re is pelvic floor laxity or prolapse. Ovaries are atrophic. No acute ovarian process. No adrenal abn ormalities. Gastric surgical changes are noted with no acute finding. In the central mid abdomen there is a 2 hernán timeter area of extraluminal free air with edema and stranding in the fat. This is within the small b owel mesentery. The adjacent small bowel loops show a few diverticula. No wall thickening or edema se en that is typically associated with infarcted or ischemic small bowel. Patient had a similar small b owel free air process October 2018. Sigmoid diverticulosis present without diverticulitis. No acute colon finding seen. Minimal free fluid in the dependent portion of the pelvis. No pneumatosis. No mass or bulky lymphaden opathy. Abdominal wall muscle atrophy is present. Small hernia defects seen in the supraumbilical reg ion similar to the comparison study. Disc and bony degenerative changes are present. IMPRESSION: Small 2 centimeter sized collection of intraperitoneal free air and edematous stranding in the mesenteric fat between mid abdomen small bowel loops. Similar process was seen October 2018. Patient may have a perforated small-bowel diverticulitis. Perforation from ingested foreign body is p ossible. Small bowel infarction or ischemia are not suspected. Small bowel mass not suspected. Free a ir does not appear to be associated at all with the colon. Additional nonacute findings detailed in the body of the report.
--- NOTE | 2020-03-25 12:41 | ER ---
Nurse's Notes [facility] Name: Radha Ocampo Age: 79 yrs Sex: Female : 1940 Arrival Date: 03/25/2020 Time: 09:48 Bed 20 Private MD: Toby Parks V Diagnosis: Diverticulitis of small intestine, with perforation, no abscess Presentation: 03/25 09:58 Chief complaint: Patient states: lower abd pain. Pt denies nausea/vomiting. Reports aa5 loose stool. 09:58 Ebola Screen: Patient negative for fever greater than or equal to 101.5 degrees aa5 Fahrenheit, and additional compatible Ebola Virus Disease symptoms. Initial Sepsis Screen: Does the patient meet any 2 criteria? No. Patient's initial sepsis screen is negative. Does the patient have a suspected source of infection? No. Patient's initial sepsis screen is negative. Risk Assessment: Do you want to hurt yourself or someone else? Patient reports no desire to harm self or others. Onset of symptoms was March 2020. 09:58 Acuity: CIARA 3 aa5 09:58 Method Of Arrival: Ambulatory aa5 13:10 Coronavirus screen: Client denies travel out of the [place] in the last 14 days. At this ah time, the client does not indicate any symptoms associated with coronavirus-19. Historical: - Allergies: 10:18 meperidine HCl (rash); aa5 10:18 Morphine; aa5 - Home Meds: 10:22 Actemra 162 mg/0.9 mL subcutaneous syrg once wkly [Active]; atorvastatin 80 mg oral tab aa5 once daily [Active]; diltiazem HCl 180 mg oral Tb24 once daily [Active]; Furosemide 75mg Oral PRN [Active]; levothyroxine 75 mcg tab 1 tab once daily [Active]; losartan 100 mg oral tab once daily [Active]; Lyrica 50mg Oral daily [Active]; nitroglycerin 0.4 mg SL subl PRN [Active]; Prednisone 40mg Oral once daily [Active]; sertraline 100 mg oral tab 1 tab once daily [Active]; aspirin 81 mg Oral chew 1 tab once daily [Active]; - PMHx: 10:18 Depression; DM chemical induced; Hyperlipidemia; Hypertension; Hypothyroidism; Renal aa5 Cell Carcinoma; Giant Cell Arthritis; Stage 3 Kidney Failure; Myocardial infarction; - PSHx: 10:18 Cholecystectomy; Gastric Bypass; Tummy tuck; Right Kidney Removed- Cancer; aa5 - Immunization history:: Adult Immunizations unknown. - Social history:: Smoking status: Patient denies any tobacco usage or history of. - Family history:: not pertinent. - Hospitalizations: : No recent hospitalization is reported. Screenin:29 Abuse screen: Denies threats or abuse. Nutritional screening: No deficits noted. ah Tuberculosis screening: No symptoms or risk factors identified. Fall Risk None identified. Assessment: 10:24 General: Appears uncomfortable, Behavior is calm, cooperative, appropriate for age. ah Pain: Complains of pain in right upper quadrant, left upper quadrant, right lower quadrant and left lower quadrant Pain currently is 7 out of 10 on a pain scale. Quality of pain is described as aching, sharp, Pain began 2-3 days ago. Is intermittent. Neuro: Level of Consciousness is awake, alert, obeys commands, Oriented to person, place, time, situation, Appropriate for age. Cardiovascular: Capillary refill < 3 seconds Patient's skin is warm and dry. Respiratory: Airway is patent Respiratory effort is even, unlabored, Respiratory pattern is regular, symmetrical. GI: Stools are reported to be loose, Bowel sounds present X 4 quads. Abdomen is tender to palpation X 4 quads. Patient currently denies bloody stool, vomiting. : Denies burning with urination. Derm: Skin is intact, is healthy with good turgor. 11:22 Reassessment: Pt to CT at this time. 12:00 Reassessment: Patient and/or family updated on plan of care and expected duration. Pain ah level reassessed. Patient is alert, oriented x 3, equal unlabored respirations, skin warm/dry/pink. awaiting on results from labs and CT scan. No needs voiced at this time. 13:00 Reassessment: Patient and/or family updated on plan of care and expected duration. Pain ah level reassessed. Patient is alert, oriented x 3, equal unlabored respirations, skin warm/dry/pink. No needs voiced at this time. 13:32 Reassessment: Pt walked to the bathroom and states that she would like to try something ah for pain now. MD informed and medications ordered and given. 14:58 Reassessment: No adverse reactions noted to fentanyl. Pt states that it helped a little ah bit. 15:08 Reassessment: Attempted to call report to 2nd floor. Nurse busy, awaiting call back. Vital Signs: 10:00 BP 175 / 51; Pulse 60; Resp 17; Temp 98.4; Pulse Ox 98% ; ah 11:00 BP 152 / 48; Pulse 48; Resp 16; Pulse Ox 97% ; ah 12:00 BP 169 / 50; Pulse 48; Resp 16; Pulse Ox 97% ; ah 13:00 BP 170 / 46; Pulse 57; Resp 17; Pulse Ox 98% ; ah 14:00 BP 160 / 48; Pulse 54; Resp 16; Pulse Ox 96% ; ah ED Course: 09:48 Patient arrived in ED. as 09:48 Toby Parks MD is Private Physician. as 09:48 Arm band placed on Patient placed in an exam room, on a stretcher. aa5 09:58 Hiram Agrawal MD is Attending Physician. rn 10:07 Stacey Freeman RN is Primary Nurse. 10:12 Initial lab(s) drawn, by wa, sent to lab. Inserted saline lock: 14 gauge 20 gauge in kj1 right antecubital area, using aseptic technique. Blood collected. 10:15 Triage completed. aa5 10:29 Patient has correct armband on for positive identification. Placed in gown. Bed in low ah position. Call light in reach. Side rails up X 1. Pulse ox on. NIBP on. 11:28 CT completed. Patient tolerated procedure well. Patient moved back from CT. 12:39 Toby Parks MD is Hospitalizing Provider. rn Administered Medications: 10:15 Drug: NS 0.9% 500 ml Route: IV; Rate: bolus; Site: right antecubital; 13:11 Follow up: Response: No adverse reaction; IV Status: Completed infusion 12:45 Drug: Zosyn 3.375 grams Route: IVPB; Infused Over: 60 mins; Site: right antecubital; 15:09 Follow up: Response: No adverse reaction; IV Status: Completed infusion 13:32 Drug: fentaNYL (PF) 25 mcg Route: IVP; Site: right antecubital; 15:09 Follow up: Response: No adverse reaction Outcome: 12:40 Decision to Hospitalize by Provider. rn 16:54 Patient left the ED. ks7 Signatures: Ashley Park Amelia as Nieto, Roman, MD MD rn Calderon, Audri RN RN [id number] Clover [id number] Stacey Freeman RN Jodie Salas RN RN ks7
--- NOTE | 2020-03-25 12:41 | EDPHYS ---
Physician Documentation [facility] Name: Radha Ocampo Age: 79 yrs Sex: Female : 1940 Arrival Date: 03/25/2020 Time: 09:48 Bed 20 Private MD: Toby Parks V ED Physician Hiram Agrawal HPI: 03/25 10:05 This 79 yrs old Female presents to ER via Unassigned with complaints of rn Abdominal Pain. 10:05 The patient presents with abdominal pain that is diffuse. Onset: The symptoms/episode rn began/occurred 3 day(s) ago. The symptoms do not radiate. Associated signs and symptoms: Pertinent positives: diarrhea, Pertinent negatives: blood in stools, fever, shortness of breath, vomiting, vomiting blood. Modifying factors: The symptoms are alleviated by nothing, the symptoms are aggravated by movement, touching the area. Severity of pain: At its worst the pain was moderate in the emergency department the pain is unchanged. The patient has experienced a previous episode. Reports abd pain, diffuse, began 3 days ago, no fever or blood in stool. Reports loose stool, intermittent, no appetite. . Historical: - Allergies: 10:18 meperidine HCl (rash); aa5 10:18 Morphine; aa5 - Home Meds: 10:22 Actemra 162 mg/0.9 mL subcutaneous syrg once wkly [Active]; atorvastatin 80 mg oral tab aa5 once daily [Active]; diltiazem HCl 180 mg oral Tb24 once daily [Active]; Furosemide 75mg Oral PRN [Active]; levothyroxine 75 mcg tab 1 tab once daily [Active]; losartan 100 mg oral tab once daily [Active]; Lyrica 50mg Oral daily [Active]; nitroglycerin 0.4 mg SL subl PRN [Active]; Prednisone 40mg Oral once daily [Active]; sertraline 100 mg oral tab 1 tab once daily [Active]; aspirin 81 mg Oral chew 1 tab once daily [Active]; - PMHx: 10:18 Depression; DM chemical induced; Hyperlipidemia; Hypertension; Hypothyroidism; Renal aa5 Cell Carcinoma; Giant Cell Arthritis; Stage 3 Kidney Failure; Myocardial infarction; - PSHx: 10:18 Cholecystectomy; Gastric Bypass; Tummy tuck; Right Kidney Removed- Cancer; aa5 - Immunization history:: Adult Immunizations unknown. - Social history:: Smoking status: Patient denies any tobacco usage or history of. - Family history:: not pertinent. - Hospitalizations: : No recent hospitalization is reported. ROS: 10:05 Constitutional: Negative for fever, chills, and weight loss, Eyes: Negative for injury, rn pain, redness, and discharge, Neck: Negative for injury, pain, and swelling, Cardiovascular: Negative for chest pain, palpitations, and edema, Respiratory: Negative for shortness of breath, cough, wheezing, and pleuritic chest pain, Abdomen/GI: + abd pain and diarrhea MS/Extremity: Negative for injury and deformity, Skin: Negative for injury, rash, and discoloration, Neuro: Negative for headache, weakness, numbness, tingling, and seizure. Exam: 10:05 Constitutional: This is a well developed, well nourished patient who is awake, alert, rn and in no acute distress. Ambulatory to room, appears in pain when getting into bed. Head/Face: Normocephalic, atraumatic. Cardiovascular: Regular rate and rhythm. No pulse deficits. Respiratory: Speaking full sentences. No increased work of breathing, no retractions or nasal flaring. Abdomen/GI: soft, + tenderness all 4 quadrants, no rebound or masses. + anterior abd wall ecchymosis (patient reports injections at site). Skin: Warm, dry MS/ Extremity: Pulses equal, no cyanosis. Neurovascular intact. Full, normal range of motion. Equal circumference. Neuro: Awake and alert, GCS 15, oriented to person, place, time, and situation. Cranial nerves II-XII grossly intact. Motor strength 5/5 in all extremities. Sensory grossly intact. Cerebellar exam normal. Normal gait. Vital Signs: 10:00 BP 175 / 51; Pulse 60; Resp 17; Temp 98.4; Pulse Ox 98% ; ah 11:00 BP 152 / 48; Pulse 48; Resp 16; Pulse Ox 97% ; ah 12:00 BP 169 / 50; Pulse 48; Resp 16; Pulse Ox 97% ; ah 13:00 BP 170 / 46; Pulse 57; Resp 17; Pulse Ox 98% ; ah 14:00 BP 160 / 48; Pulse 54; Resp 16; Pulse Ox 96% ; ah MDM: 09:58 Patient medically screened. rn 12:34 Differential diagnosis: bowel obstruction, diverticulitis, non-specific abd pain, rn pancreatitis, diverticulitis, perforated diverticulitis. Data reviewed: vital signs, nurses notes, lab test result(s), radiologic studies, CT scan, and as a result, I will admit patient. Counseling: I had a detailed discussion with the patient and/or guardian regarding: the historical points, exam findings, and any diagnostic results supporting the discharge/admit diagnosis, lab results, radiology results, the need for further work-up and treatment in the hospital. Response to treatment: the patient's symptoms have mildly improved after treatment, and as a result, I will admit patient. Admission orders: after a detailed discussion of the patient's condition and case, the admit orders are written by me. ED course: Pt with perforated diverticulitis, possibly of small bowel, pt sleeping comfortably and declines pain medication, consulted with Dr. Smith, who agrees with admission, abx, NPO, fluids. Will admit to Dr. Parks. . 03/25 10:05 Order name: Basic Metabolic Panel rn 03/25 10:05 Order name: CBC with Diff rn 03/25 10:05 Order name: Hepatic Function rn 03/25 10:05 Order name: Lipase rn 03/25 10:39 Order name: CBC with Automated Diff; Complete Time: 11:23 EDSC 03/25 10:42 Order name: Basic Metabolic Panel; Complete Time: 11:23 EDSC 03/25 10:05 Order name: IV Saline Lock; Complete Time: 10:20 rn 03/25 10:05 Order name: CT Abd/Pelvis - IV Contrast Only rn 03/25 10:42 Order name: Liver (Hepatic) Function; Complete Time: 11:23 EDSC 03/25 10:42 Order name: Lipase; Complete Time: 11:23 EDSC 03/25 11:47 Order name: CT; Complete Time: 12:24 EDSC 03/25 10:05 Order name: Labs collected and sent; Complete Time: 10:20 rn Administered Medications: 10:15 Drug: NS 0.9% 500 ml Route: IV; Rate: bolus; Site: right antecubital; 13:11 Follow up: Response: No adverse reaction; IV Status: Completed infusion ah 12:45 Drug: Zosyn 3.375 grams Route: IVPB; Infused Over: 60 mins; Site: right antecubital; 15:09 Follow up: Response: No adverse reaction; IV Status: Completed infusion 13:32 Drug: fentaNYL (PF) 25 mcg Route: IVP; Site: right antecubital; 15:09 Follow up: Response: No adverse reaction Disposition: 03/25/20 12:40 Hospitalization ordered by Toyb Parks for Inpatient Admission. Preliminary diagnosis is Diverticulitis of small intestine, with perforation, no abscess. - Bed requested for Telemetry/MedSurg (Inpatient). - Status is Inpatient Admission. ks7 - Condition is Stable. - Problem is new. - Symptoms have improved. Signatures: Dispatcher [employer] EDMS Hiram Agrawal MD MD rn Calderon, Audri RN RN aa5 Yudith Rasmussen Amy RN RN Jodie Kaiser RN RN ks7 Corrections: (The following items were deleted from the chart) 14:43 12:40 Hospitalization Ordered by Toby Parks MD for Inpatient Admission. Preliminary eb diagnosis is Diverticulitis of small intestine, with perforation, no abscess. Bed requested for Telemetry/MedSurg (Inpatient). Status is Inpatient Admission. Condition is Stable. Problem is new. Symptoms have improved. rn 16:54 14:43 03/25/2020 12:40 Hospitalization Ordered by Toby Parks MD for Inpatient ks7 Admission. Preliminary diagnosis is Diverticulitis of small intestine, with perforation, no abscess. Bed requested for Telemetry/MedSurg (Inpatient). Status is Inpatient Admission. Condition is Stable. Problem is new. Symptoms have improved. eb
[2020-03-25] MEDS ORDERED: PIPER/TAZO/NS 3.375gm 3.375 GM/100 ML BAG ONE ×2 (12:44→18:20)
[2020-03-25] MEDS ORDERED: FENTANYL CITR 100 MCG/2 ML ONE (13:27)
[2020-03-25] MEDS ORDERED: ONDANSETRON 4 MG/2 ML VIAL IV PRN (16:33)
[2020-03-25] MEDS: D5 0.45 NS 1,000 ML IV SCH (17:37)
[2020-03-25] MEDS: PIPER/TAZO/NS 3.375gm 3.375 GM/100 ML BAG IVPB SCH (18:24)
[2020-03-25] MEDS ORDERED: TOCILIZUMAB 162 MG SQ SCH (20:45)
--- NOTE | 2020-03-25 20:58 | P.HP ---
Certification for Inpatient Patient admitted to: Inpatient With expected LOS: >2 Midnights Practitioner: I am a practitioner with admitting privileges, knowledge of patient current condition, hospital course, and medical plan of care. Services: Services provided to patient in accordance with Admission requirements found in Title 42 Section 412.3 of the Code of Federal Regulations Patient History Date of Service: 03/25/20 Reason for admission: DIFFUSE ABDOMEN PAIN. History of Present Illness: MS. WELLER IS 79 YEARS OLD LADY WITH HTN, CHRONIC HEADACHES, TEMPORAL ARTERITIS WHO IS NOT WATCHING HER DIET ABOUT SEEDS COMES IN WITH ABDOMEN PAIN FOR LAST TWO DAYS. THE PAIN IS DIFFUSE. SHE HAS NO NAUSEA, VOMITING OR FEVER. PAIN IS MODERATE IN SCALE. Allergies meperidine HCl [From Demerol] Allergy (Verified 03/30/17 20:38) Unknown Morphine Allergy (Uncoded 03/30/17 20:38) Unknown Home Medications: Tocilizumab [Actemra] 162 mg SQ DIRECTED 04/28/19 Sertraline [Zoloft*] 100 mg PO DAILY 04/29/19 Alpha Lipoic Acid 1 tab PO DAILY 03/25/20 Aspirin 1 tab PO SEECOM 03/25/20 Atorvastatin Calcium [Lipitor] 1 tab PO DAILY 03/25/20 Cholecalciferol (Vitamin D3) [Vitamin D3] 1 tab PO DAILY 03/25/20 Diltiazem Cd [Cardizem Cd] 1 tab PO DAILY 03/25/20 Levothyroxine [Synthroid*] 1 tab PO DAILY 03/25/20 Losartan Potassium 1 tab PO DAILY 03/25/20 Nitroglycerin 1 tab PO SEECOM 03/25/20 Pregabalin [Lyrica] 50 mg PO DAILY 03/25/20 predniSONE [Deltasone*] 2 tab PO BID 03/25/20 - Past Medical/Surgical History Has patient received pneumonia vaccine in the past: Yes Diabetic: Yes -: Herpes -: Hypothyroidisim -: Hypertension -: High Cholesterol -: Depression -: GERD -: Giant Cell Arteritis -: Kidney Cancer -: Neuropathy -: DM (chemical induced) -: Nephrectomy Right -: Gastric bypass -: Hysterectomy -: Hernia Repair - Family History Father -: Cancer Notes: - Lung Cancer Mother Notes: - Congestive heart failure, Diabetes - Social History Smoking Status: Never smoker Alcohol use: No CD- Drugs: No Caffeine use: Yes Place of Residence: Home Review of Systems 10-point ROS is otherwise unremarkable General: Weakness, Malaise Physical Examination - Vital Signs Temperature: 97.6 F Blood Pressure: 143/63 Pulse: 58 Respirations: 18 Pulse Ox (%): 92 - Physical Exam General: Oriented x3, Mild distress HEENT: Atraumatic, PERRLA, Mucous membr. moist/pink, EOMI, Sclerae nonicteric Neck: Supple, 2+ carotid pulse no bruit, No LAD, Without JVD or thyroid abnormality Respiratory: Clear to auscultation bilaterally, Normal air movement Cardiovascular: Regular rate/rhythm, Normal S1 S2 Gastrointestinal: Normal bowel sounds, Tenderness Musculoskeletal: No tenderness Integumentary: No rashes Neurological: Normal gait, Normal speech, Normal strength at 5/5 x4 extr, Normal tone, Normal affect Lymphatics: No axilla or inguinal lymphadenopathy - Studies Laboratory Data (last 24 hrs) 03/25/20 10:12: WBC 14.9 H, Hgb 14.4, Hct 43.7, Plt Count 105 L 03/25/20 10:12: Sodium 145, Potassium 3.4 L, BUN 28 H, Creatinine 1.13, Glucose 94, Total Bilirubin 0.8, AST 18, ALT 34, Alkaline Phosphatase 101, Lipase 126 Assessment and Plan - Problems (Diagnosis) (1) Diverticular disease of intestine with perforation and abscess Current Visit: Yes Status: Acute Plan: IV ZOSYN CONSULT DR. LEROY. DAILY LAB. DAILY FU. HOPEFULLY SHE WILL RECOVER WITHOUT SURGERY. (2) Temporal arteritis Onset Date: 04/07/18 Current Visit: No Status: Chronic Plan: SHE HAS RESISTANT GIANT CELL ARTERITIS. SHE IS GOING TO [employer] A[facility]LY[employer] AND GETTING HIGH DOSE OF PREDNIOSNE AND ACTIMERA. - Advance Directives Does patient have a Living Will: Yes Does patient have a Durable POA for Healthcare: Yes
[2020-03-25] MEDS ORDERED: NITROGLYCERIN PO SCH (21:00)
[2020-03-25] MEDS ORDERED: ASPIRIN 81 MG CHEWABLE TABLET PO SCH (21:00)
[2020-03-25] MEDS: HYDROMORPHONE HCL 1 MG/ML INJ IV PRN (21:07)
[2020-03-25] MEDS: ONDANSETRON 4 MG/2 ML VIAL IV PRN (21:08)
[2020-03-25] MEDS: predniSONE 10 MG TAB PO SCH (21:15)
[2020-03-26] MEDS: D5 0.45 NS 1,000 ML IV SCH ×3 (00:06→19:33)
--- NOTE | 2020-03-26 00:09 | CON ---
Date of Consultation: 03/25/2020 Reason: Abdominal pain. History Of Present Illness: The patient is a 79-year-old female, who presented with 2 to 3 days hist ory of diffuse abdominal pain associated with nausea, but no vomiting. No blood in her stool. No dy suria or hematuria. No diarrhea or constipation. No sore throat, runny nose, cough, headaches, or d izziness. No chest pain. No fever or chills. The patient is mostly in the middle, but the remainde r of the abdomen is also painful for her. She has a similar episode back in October of this year, nola osborn was treated conservatively for a microperforation of a small bowel diverticulitis and she did clini nicolas very well on IV antibiotics without any intervention and appears that she presents with similar symptomatology at this time. Review of Systems: Otherwise unremarkable. Medical History: Significant for hypothyroidism, hypertension, high cholesterol, depression, and kid johanna cancer. Past Surgical History: Right nephrectomy, gastric bypass surgery, hysterectomy, hernia surgery. Allergies: INCLUDE DEMEROL AND MORPHINE. Social History: The patient does not smoke. Does not drink alcohol. Family History: Noncontributory. Physical Examination: Vital Signs: Stable. She is afebrile. General: She is awake, alert, and oriented x3. Head and Neck: Cranial nerves 2 through 12 grossly within normal limits. No neck masses. No JVD. Throat clear. Neck is supple. Chest: Clear. Heart: S1 and S2. Abdomen: Soft, nondistended. Tenderness in the middle of the abdomen. The remainder of the abdomen is soft. There is no peritonitis. There is no rebound. There is no rigidity and there is no invol untary guarding. Extremities: Adequately perfused. Nontender. Neuro: Nonfocal. Laboratory Data: White count is 14.9 with a slight left shift. Platelet count is 105. Chemistry is significant for potassium at 3.4, CO2 is 31, BUN is slightly high at 28. CT of the abdomen and pelv is reviewed. This shows a small 2 cm size collection of intraperitoneal free air, edematous strandin g in the mesenteric fat between the mid abdomen, small bowel loops. Similar process was seen in Jacques h of 2018. The patient may have a perforated small bowel diverticulitis, perforation from ingested f oreign body is possible. Small bowel infarction or ischemia are not suspected. Small bowel mass is not suspected. Free air does not appear to be associated at all with colon. Assessment: Microperforation likely secondary to a small bowel diverticulum secondary to diverticuli tis. Recommendations: We will continue conservative treatment with IV antibiotics. N.p.o. NG tube if sh e vomits. Serial abdominal exam and if she clinically improves, great. If not, she may need surgica l intervention. Plan of care discussed in detail with the patient. JOE/MODL Voice ID: [id number] Report ID: [id number]
[2020-03-26] MEDS ORDERED: PIPERACIL/TAZO 3.375 GM VIAL IV ONE (00:11)
[2020-03-26] MEDS ORDERED: NA CHLORIDE 0.9% 100 ML ONE ×2 (00:15→04:41)
[2020-03-26] MEDS: LEVOTHYROXINE SOD 0.075 MG TAB PO SCH (05:16)
[2020-03-26] MEDS: PIPER/TAZO/NS 3.375gm 3.375 GM/100 ML BAG IVPB SCH ×2 (05:19)
[2020-03-26 05:35] LABS: Absolute Lymphocytes (CBC) 0.3 K/uL (0.7-4.9); Basophils % 0.3 % (0-1.3); Lymphocytes % 2.3 % (15.3-44.8); MPV 9.4 fL (7.6-11.3); RBC Red Blood Cell Count 4.76 M/uL (3.86-4.86)
[2020-03-26 06:34] LABS: Platelet Estimate DECR; Urine White Blood Cell Casts OK
[2020-03-26 06:35] LABS: Blood Morphology Comment NOT SEEN (NOT SEEN)
--- NOTE | 2020-03-26 08:20 | RAD REPORT ---
EXAM DESCRIPTION: RAD - Abdomen W Erect - 03/26/2020 8:06 am CLINICAL HISTORY: Abdominal pain Pain COMPARISON: Abdomen Pelvis W Contrast dated 03/25/2020 FINDINGS: The bowel gas pattern is non-obstructive. No evidence of free air or pneumatosis. Moderate retained stool seen throughout the colon. Postsurgical changes are present in the left upper quadran t. No suspicious calcifications. No significant bony findings. IMPRESSION: No acute abnormality is discerned. Moderate stool in the colon.
[2020-03-26] MEDS: VITAMIN D 1000 UNIT TAB PO SCH (09:00)
[2020-03-26] MEDS: LOSARTAN POTASSIUM 50 MG TABLET PO SCH (10:41)
[2020-03-26] MEDS: predniSONE 10 MG TAB PO SCH ×2 (10:42→21:06)
[2020-03-26] MEDS: PREGABALIN 50 MG CAP PO SCH (10:42)
[2020-03-26] MEDS: SERTRALINE HCL 100 MG TAB PO SCH (10:42)
[2020-03-26] MEDS: ATORVASTATIN 80 MG TAB PO SCH (10:42)
[2020-03-26] MEDS: DILTIAZEM HCL 180 MG SR CAP PO SCH (10:43)
[2020-03-26] MEDS: Meropenem 1,000 MG in NA CHLORIDE 0.9% 100 ML IV SCH ×2 (13:03→21:01)
[2020-03-26] MEDS ORDERED: PIPER/TAZO/NS 3.375gm 3.375 GM/100 ML BAG IVPB SCH (14:00)
--- NOTE | 2020-03-26 15:16 | PN ---
Subjective: Ms. Ocampo is doing little better than yesterday. Denies any chest pain, nausea, vomit ing. There are no new symptoms except for the pain, continues. No bloating or diarrhea. Physical Examination: Vital signs: Blood pressure 155/90, temperature 97.3. HEENT: No JVD. No carotid bruits. Chest: Clear. Heart: Regular. Abdomen: Soft. Diffuse tenderness. No rebound. Laboratory Examination: White count is still high at 14,000, platelets 100,000. Assessment And Plan: Diverticulitis with micro perforation. Medical management is a best source for her because she is on prednisone, elderly 79-year-old with history of bowel obstruction and rupture in the past. She has not been following her diet but she will be doing so now. I explained to her s o many times to avoid seeds in her food. I will change antibiotics meropenem because meropenem will be the drug of choice when the other antibiotics fail or slow to recover, especially in the case of p erforation. CLYDE/ANTONIO Voice ID: [id number] Report ID: [id number]
--- NOTE | 2020-03-26 15:46 | PN ---
Date of Progress Note: 03/26/2020 Subjective: Patient is awake, alert. Pain is a little bit better. Physical Examination: Vital Signs: Stable. General: She is completely afebrile. Abdomen: She did have a bowel movement today, passing gas. No nausea, no vomiting. Laboratory Data: White count is 13.9, platelets are 100. There is still a left shift. Chemistry re viewed. She is not acidotic. Abdomen is soft, nondistended, slightly hypoactive bowel sounds. Ther e is tenderness in the middle. There is no rebound, rigidity, or guarding. Assessment: Acute small bowel diverticulitis with micro perforation. No evidence of peritonitis at this time. Recommendations: Continue n.p.o. and antibiotics at this time. Serial abdominal exams. Please note , the x-ray did not show any free air today. This showed moderate amount of stool. Plan of care dis cussed with Dr. Parks. JOE/ANTONIO Voice ID: [id number] Report ID: [id number]
[2020-03-26 17:19] VITALS: BMI 3908.7
[2020-03-26] MEDS ORDERED: Meropenem 1000 MG/VIAL IV SCH (21:00)
[2020-03-26] MEDS: HYDROMORPHONE HCL 1 MG/ML INJ IV PRN (22:40)
[2020-03-26] MEDS: ONDANSETRON 4 MG/2 ML VIAL IV PRN (22:45)
[2020-03-27] MEDS: LEVOTHYROXINE SOD 0.075 MG TAB PO SCH (06:17)
[2020-03-27] MEDS: LOSARTAN POTASSIUM 50 MG TABLET PO SCH (09:00)
[2020-03-27] MEDS: Meropenem 1,000 MG in NA CHLORIDE 0.9% 100 ML IV SCH ×2 (09:00→21:09)
[2020-03-27] MEDS: PREGABALIN 50 MG CAP PO SCH (09:00)
[2020-03-27] MEDS: VITAMIN D 1000 UNIT TAB PO SCH (09:00)
[2020-03-27] MEDS: SERTRALINE HCL 100 MG TAB PO SCH (09:00)
[2020-03-27] MEDS: DILTIAZEM HCL 180 MG SR CAP PO SCH (09:00)
[2020-03-27] MEDS: ATORVASTATIN 80 MG TAB PO SCH (09:00)
[2020-03-27] MEDS: predniSONE 10 MG TAB PO SCH ×2 (09:01→21:09)
--- NOTE | 2020-03-27 11:31 | PN ---
Date of Progress Note: 03/27/2020 Subjective: She is awake, alert, feels better. No nausea, vomiting, having bowel movements. Objective: Vital Signs: Stable. She is afebrile. Abdomen: Soft, much less tender. No rebound, rigidity or guarding. Minimal tenderness. Laboratory Data: Unknown because the computer system is down right now. Assessment: Microperforation of the small bowel, diverticulitis with abdominal pain. Recommendation: Plan to start clear liquids. We will add vitamin A as patient is on steroids. The patient will get a PICC line and long-term IV antibiotics, meropenem because this is the second time. Plan of care was discussed with Dr. Parks in detail. JOE/ANTONIO Voice ID: [id number] Report ID: [id number]
[2020-03-27] MEDS: D5 0.45 NS 1,000 ML IV SCH (15:49)
--- NOTE | 2020-03-27 18:28 | P.PN ---
Subjective Date of Service: 03/27/20 Chief Complaint: DIFFUSE ABDOMEN PAIN. Subjective: Improving SHE IS A LOT BETTER AFTER STARTING MERREM. Review of Systems 10-point ROS is otherwise unremarkable General: Weakness, Malaise Physical Examination - Vital Signs Temperature: 97.1 F Blood Pressure: 166/72 Pulse: 58 Respirations: 16 Pulse Ox (%): 97 - Physical Exam General: Mild distress HEENT: Atraumatic, PERRLA, EOMI Neck: Supple, JVD not distended Respiratory: Clear to auscultation bilaterally, Normal air movement Cardiovascular: Regular rate/rhythm, Normal S1 S2 Gastrointestinal: Normal bowel sounds, No tenderness Musculoskeletal: No tenderness Integumentary: No rashes Neurological: Normal speech, Normal tone, Normal affect Lymphatics: No axilla or inguinal lymphadenopathy - Studies Medications List Reviewed: Yes Assessment And Plan - Current Problems (Diagnosis) (1) Diverticular disease of intestine with perforation and abscess Current Visit: Yes Status: Acute Plan: IV ZOSYN CONSULT DR. LEROY. DAILY LAB. DAILY FU. HOPEFULLY SHE WILL RECOVER WITHOUT SURGERY. WE NEED 14 DAYS TOTAL OF MERREM IV ZOSYN FAILED. (2) Temporal arteritis Onset Date: 04/07/18 Current Visit: No Status: Chronic Plan: SHE HAS RESISTANT GIANT CELL ARTERITIS. SHE IS GOING TO RECEIVER BULK SYSTEM AND GETTING HIGH DOSE OF PREDNIOSNE AND ACTIMERA.
[2020-03-27 21:23] LABS: MPV 9.5 fL (7.6-11.3)
[2020-03-27 21:44] LABS: Platelet Estimate ND
[2020-03-28 04:16] LABS: Absolute Lymphocytes (CBC) 0.5 K/uL (0.7-4.9); Basophils % 0.3 % (0-1.3); Hematocrit 41.4 % (36.0-45.0); Lymphocytes % 4.2 % (15.3-44.8); MPV 9.2 fL (7.6-11.3); RBC Red Blood Cell Count 4.57 M/uL (3.86-4.86)
[2020-03-28] MEDS: D5 0.45 NS 1,000 ML IV SCH ×2 (05:54→20:25)
[2020-03-28] MEDS: LEVOTHYROXINE SOD 0.075 MG TAB PO SCH (05:56)
[2020-03-28] MEDS: Meropenem 1,000 MG in NA CHLORIDE 0.9% 100 ML IV SCH ×2 (08:46→20:50)
[2020-03-28] MEDS: predniSONE 10 MG TAB PO SCH (08:47)
[2020-03-28] MEDS: LOSARTAN POTASSIUM 50 MG TABLET PO SCH (08:47)
[2020-03-28] MEDS: VITAMIN A 10,000 IU CAP PO SCH (08:47)
[2020-03-28] MEDS: DILTIAZEM HCL 180 MG SR CAP PO SCH (08:48)
[2020-03-28] MEDS: PREGABALIN 50 MG CAP PO SCH (08:48)
[2020-03-28] MEDS: VITAMIN D 1000 UNIT TAB PO SCH (08:48)
[2020-03-28] MEDS: ATORVASTATIN 80 MG TAB PO SCH (08:48)
[2020-03-28] MEDS: SERTRALINE HCL 100 MG TAB PO SCH (08:49)
[2020-03-28] MEDS: ENOXAPARIN 40 MG/0.4 ML SQ SCH (08:49)
--- NOTE | 2020-03-28 11:00 | PN ---
Date of Progress Note: 03/28/2020 Subjective: The patient is awake, alert, no complaint. Had a bowel movement. Tolerating clear liqu ids. No abdominal pain. Objective: Vital Signs: Stable. Afebrile. Abdomen: Soft, nondistended, nontender. Positive bowel sounds. Laboratory Data: Please note white count is down to 12.9 not quite normally yet. Assessment: Acute microperforation, small bowel diverticulitis. Recommendation: Advance diet. Continue IV antibiotics. Patient clinically is doing well. Probably discharge home on IV antibiotics for 2 weeks. No need for any surgical intervention at this time. /MODL Voice ID: [id number] Report ID: [id number]
[2020-03-28] MEDS: predniSONE 20 MG TAB PO SCH (20:51)
--- NOTE | 2020-03-28 21:24 | PN ---
Subjective: Ms. Ocampo is doing lot better. Denies any chest pain, nausea, vomiting. She does not hurt in abdomen any longer. This is after 2 days of being on meropenem. Physical Examination: Vital Signs: Blood pressure 157/70, afebrile at 97. Chest: Clear. Heart: Regular. Abdomen: No guarding, no rebound, no rigidity. Assessment And Planning: Diverticular abscess with microperforation. Continue meropenem for about 1 4 days total. We have advised psychosocial rehabilitation counselor to work on getting home antibiotics. She is getting a P ICC line tonight. Possible discharge tomorrow depending on the approval by insurance company. CLYDE/ANTONIO Voice ID: [id number] Report ID: [id number]
[2020-03-28] MEDS: HYDROMORPHONE HCL 1 MG/ML INJ IV PRN (22:19)
[2020-03-28] MEDS: ONDANSETRON 4 MG/2 ML VIAL IV PRN (22:19)
[2020-03-29] MEDS: LEVOTHYROXINE SOD 0.075 MG TAB PO SCH (05:49)
[2020-03-29 05:51] LABS: Absolute Lymphocytes (CBC) 0.5 K/uL (0.7-4.9); Basophils % 0.6 % (0-1.3); Hematocrit 42.5 % (36.0-45.0); Lymphocytes % 3.9 % (15.3-44.8); MPV 9.6 fL (7.6-11.3); RBC Red Blood Cell Count 4.62 M/uL (3.86-4.86)
[2020-03-29 06:34] LABS: Blood Morphology Comment NOT SEEN (NOT SEEN); Platelet Estimate DECR; Urine White Blood Cell Casts OK
[2020-03-29] MEDS: LOSARTAN POTASSIUM 50 MG TABLET PO SCH (08:40)
[2020-03-29] MEDS: PREGABALIN 50 MG CAP PO SCH (08:40)
[2020-03-29] MEDS: SERTRALINE HCL 100 MG TAB PO SCH (08:40)
[2020-03-29] MEDS: DILTIAZEM HCL 180 MG SR CAP PO SCH (08:40)
[2020-03-29] MEDS: predniSONE 20 MG TAB PO SCH ×2 (08:40→21:27)
[2020-03-29] MEDS: Meropenem 1,000 MG in NA CHLORIDE 0.9% 100 ML IV SCH ×2 (08:41→21:27)
[2020-03-29] MEDS: VITAMIN A 10,000 IU CAP PO SCH (08:41)
[2020-03-29] MEDS: VITAMIN D 1000 UNIT TAB PO SCH (08:41)
[2020-03-29] MEDS: ATORVASTATIN 80 MG TAB PO SCH (08:41)
[2020-03-29] MEDS: ENOXAPARIN 40 MG/0.4 ML SQ SCH (08:41)
--- NOTE | 2020-03-29 13:43 | PN ---
Date of Progress Note: 03/29/2020 Subjective: The patient is awake and alert. No complaint. Objective: Vital Signs: Stable. Afebrile. Abdomen: Soft, nondistended, nontender. Positive bowel sounds. Laboratory Data: Today shows slight elevation of the white count. May be secondary to steroid use. Assessment: Microperforation, small bowel diverticulitis. Recommendation: The patient is awaiting PICC line for IV antibiotics at home. Continue current juana gement. No need for any surgical intervention. /MODL Voice ID: [id number] Report ID: [id number]
[2020-03-29] MEDS: PANTOPRAZOLE 40MG TABLET PO SCH (16:56)
--- NOTE | 2020-03-29 22:28 | PN ---
Subjective: Ms. Ocampo is doing lot better. Abdominal pain has disappeared now. She is eager to g o home, but waiting for a PICC line and insurance approval for antibiotics. Physical Examination: Vital Signs: Blood pressure 163/72, pulse is 57, temperature 97.7. HEENT: No JVD. No carotid bruits. Chest: Clear. Heart: Regular. Abdomen: Soft. Minimal tenderness. Laboratory Examination: White count down to 12,000. Assessment And Planning: Diverticular perforation with infection, needing IV meropenem. Looks like Keesha Flagmanoj IV did not work, so we changed over to a medication, which is recommended for complicat ed diverticular infection. She will need antibiotics for about 14 days. 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 Unfortunately, that makes her have more complications and prone to an infection like this. CLYDE/MODL Voice ID: [id number] Report ID: [id number]
[2020-03-30] MEDS: LEVOTHYROXINE SOD 0.075 MG TAB PO SCH (06:22)
[2020-03-30] MEDS: Meropenem 1,000 MG in NA CHLORIDE 0.9% 100 ML IV SCH (08:46)
[2020-03-30] MEDS: LOSARTAN POTASSIUM 50 MG TABLET PO SCH (08:46)
[2020-03-30] MEDS: ATORVASTATIN 80 MG TAB PO SCH (08:46)
[2020-03-30] MEDS: ENOXAPARIN 40 MG/0.4 ML SQ SCH (08:46)
[2020-03-30] MEDS: VITAMIN D 1000 UNIT TAB PO SCH (08:46)
[2020-03-30] MEDS: PANTOPRAZOLE 40MG TABLET PO SCH (08:47)
[2020-03-30] MEDS: PREGABALIN 50 MG CAP PO SCH (08:47)
[2020-03-30] MEDS: VITAMIN A 10,000 IU CAP PO SCH (08:47)
[2020-03-30] MEDS: SERTRALINE HCL 100 MG TAB PO SCH (08:47)
[2020-03-30] MEDS: predniSONE 20 MG TAB PO SCH (08:47)
[2020-03-30] MEDS: DILTIAZEM HCL 180 MG SR CAP PO SCH (08:48)
[2020-03-30 10:19] VITALS: O2SAT 97
--- NOTE | 2020-03-30 11:42 | RAD REPORT ---
EXAM DESCRIPTION: RAD - Chest Single View - 03/30/2020 3:18 am CLINICAL HISTORY: The patient is 79 years old and is Female; picc line insertion TECHNIQUE: Frontal view of the chest. COMPARISON: No relevant prior studies available. FINDINGS: LUNGS: Unremarkable. No consolidation. PLEURAL SPACE: Unremarkable. No pneumothorax. HEART: Unremarkable. No cardiomegaly. MEDIASTINUM: Unremarkable. BONES/JOINTS: Minimal degenerative change of the bones is present. VASCULATURE: Atherosclerosis of the aorta is noted. TUBES, LINES AND DEVICES: A left upper extremity PICC is present with the tip at the SVC/RA junc tion. IMPRESSION: A left upper extremity PICC is present with the tip at the SVC/RA junction. Electronically signed by: Cathi Roy MD 03/30/2020 3:35 AM CDT Due to temporary technical issues with the PACS/Fluency reporting system, reports are being signed by the in house radiologist without review as a courtesy to ensure prompt reporting. The interpreting r adiologist is fully responsible for the content of the report..
--- NOTE | 2020-03-30 13:13 | PN ---
Date of Progress Note: 03/30/2020 Subjective: Patient is awake, alert, no complaint. Tolerating diet. No abdominal pain. Objective: Vital Signs: Stable, afebrile. Abdomen: Benign. Assessment: 1.Microperforation of a small bowel diverticulum. 2.Diverticulitis. Recommendations: Continue IV antibiotics. Discharge planning in progress. PICC line is in. Recons t Surgery p.r.n. /MODYnes Voice ID: [id number] Report ID: [id number]
[2020-03-30 14:30] VITALS: BP 142/66; TEMP 97.5
--- NOTE | 2020-03-30 21:13 | P.DS ---
Admission Date: 03/25/20 Discharge Date: 03/30/20 Disposition: MD HOME/HOME HEALTH CARE Discharge Condition: FAIR Reason for Admission: DIFFUSE ABDOMEN PAIN. - Problems (1) Diverticular disease of intestine with perforation and abscess Status: Acute (2) Temporal arteritis Onset Date: 04/07/18 Status: Chronic Brief History of Present Illness: MS. WELLER IS 79 YEARS OLD LADY WITH HTN, CHRONIC HEADACHES, TEMPORAL ARTERITIS WHO IS NOT WATCHING HER DIET ABOUT SEEDS COMES IN WITH ABDOMEN PAIN FOR LAST TWO DAYS. THE PAIN IS DIFFUSE. SHE HAS NO NAUSEA, VOMITING OR FEVER. PAIN IS MODERATE IN SCALE. Hospital Course: MS WELLER CAME WITH DIVERTICULAR PERFORATION. 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 SHE FAILED TO IMPROVE ON CIPRO AND FLAGYL. I CHANGED TO MERREM AND SHE IMPROVED WITHIN A DAY. SHE WILL GO HOME ON IV MERREM FOR 14 DAYS TOTAL. SHE IS STABLE AT MD. Vital Signs/Physical Exam: Temp Pulse Resp BP Pulse Ox 97.5 F 68 18 142/66 H 94 03/30/20 12:00 03/30/20 12:00 03/30/20 12:00 03/30/20 12:00 03/30/20 12:00 Laboratory Data at Discharge: WBC 12.3 K/uL (4.3-10.9) H 03/29/20 05:24 Hgb 14.1 g/dL (12.0-15.0) 03/29/20 05:24 Hct 42.5 % (36.0-45.0) 03/29/20 05:24 Plt Count Cancelled 03/30/20 21:00 Sodium 144 mmol/L (136-145) 03/26/20 05:20 Potassium 5.0 mmol/L (3.5-5.1) 03/26/20 05:20 BUN 22 mg/dL (7-18) H 03/26/20 05:20 Creatinine 1.15 mg/dL (0.55-1.3) 03/26/20 05:20 Glucose 212 mg/dL (74-106) H 03/26/20 05:20 Total Bilirubin 0.8 mg/dL (0.2-1.0) 03/25/20 10:12 AST 18 U/L (15-37) 08/08/20 10:12 ALT 34 U/L (12-78) 03/25/20 10:12 Alkaline Phosphatase 101 U/L (45-117) 03/25/20 10:12 Lipase 126 U/L (73-393) 03/25/20 10:12 Home Medications: Tocilizumab [Actemra] 162 mg SQ DIRECTED 04/28/19 Sertraline [Zoloft*] 100 mg PO DAILY 04/29/19 Alpha Lipoic Acid 1 tab PO DAILY 03/25/20 Aspirin 1 tab PO SEECOM 03/25/20 Atorvastatin Calcium [Lipitor] 1 tab PO DAILY 03/25/20 Cholecalciferol (Vitamin D3) [Vitamin D3] 1 tab PO DAILY 03/25/20 Diltiazem Cd [Cardizem Cd] 1 tab PO DAILY 03/25/20 Levothyroxine [Synthroid*] 1 tab PO DAILY 03/25/20 Losartan Potassium 1 tab PO DAILY 03/25/20 Nitroglycerin 1 tab PO SEECOM 03/25/20 Pregabalin [Lyrica*] 50 mg PO DAILY 03/25/20 predniSONE [Deltasone*] 2 tab PO BID 03/25/20
== END 2020-03-30 15:58 | disposition home health service (06) | DRG 392 ==
LOC: ER 09:46 → ERHOLD 12:46 → 2ND 16:29
PROVIDERS: ADMIT Internal Medicine; ATTEND Internal Medicine
PROC: 02HV33Z Insertion of Infusion Device into Superior Vena Cava, Percutaneous Approach (ICD-10-PCS; principal; 2020-03-30)
DX: K57.00 Diverticulitis of small intestine with perforation and abscess without bleeding (principal); K21.9 Gastro-esophageal reflux disease without esophagitis; E78.5 Hyperlipidemia, unspecified; I12.9 Hypertensive chronic kidney disease with stage 1 through stage 4 chronic kidney disease, or unspecified chronic kidney disease; N18.3 Chronic kidney disease, stage 3 (moderate); E11.22 Type 2 diabetes mellitus with diabetic chronic kidney disease; M31.6 Other giant cell arteritis; E03.9 Hypothyroidism, unspecified; I25.2 Old myocardial infarction; Z88.5 Allergy status to narcotic agent; Z79.82 Long term (current) use of aspirin; Z79.890 Hormone replacement therapy; Z79.52 Long term (current) use of systemic steroids; Z79.899 Other long term (current) drug therapy; Z85.528 Personal history of other malignant neoplasm of kidney; Z90.710 Acquired absence of both cervix and uterus; Z98.84 Bariatric surgery status; Z11.59 Encounter for screening for other viral diseases
CPT/HCPCS: 36415; 36569; 71045; 74019; 74177; 80048; 80076; 82947; 83690; 85025; 85049; 96361; 96365; 96366; 96375; 99284; J1170; J1650; J2185; J2405; J2543; J3010; J7030; J7512; J7799; Q9967; U0002

== ENCOUNTER 2020-03-30 22:56 | Emergency (ER) | payer OTHER ==
[2020-03-30 23:20] LABS: Absolute Lymphocytes (CBC) 0.5 K/uL (0.7-4.9); Basophils % 0.3 % (0-1.3); Hematocrit 46.3 % (36.0-45.0); Lymphocytes % 11.3 % (15.3-44.8); MPV 8.6 fL (7.6-11.3); RBC Red Blood Cell Count 5.05 M/uL (3.86-4.86)
[2020-03-30 23:40] LABS: Albumin 2.9 g/dL (3.4-5.0); Bilirubin Direct 0.2 mg/dL (0-0.2); Bilirubin Total 0.7 mg/dL (0.2-1.0); Potassium 3.7 mmol/L (3.5-5.1); Protein, Total 5.8 g/dL (6.4-8.2)
[2020-03-31] MEDS ORDERED: ONDANSETRON 4 MG/2 ML VIAL ONE (00:12)
[2020-03-31] MEDS ORDERED: FAMOTIDINE 20 MG/2 ML VIAL IV ONE (00:12)
[2020-03-31] MEDS ORDERED: FENTANYL CITR 100 MCG/2 ML ONE ×2 (00:12→06:45)
[2020-03-31] MEDS ORDERED: NA CHLORIDE 0.9% 500 ML ONE (00:12)
--- NOTE | 2020-03-31 04:49 | ER ---
Nurse's Notes [facility] Name: Radha Ocampo Age: 79 yrs Sex: Female : 1940 Arrival Date: 03/30/2020 Time: 22:58 Bed 18 Private MD: Diagnosis: Perforation of small bowel diverticulitis with peridiverticular abscess Presentation: 03/30 23:00 Chief complaint: EMS states: she was just discharged today from inpatient for mg2 diverticulitis and she has PICC line for IV abx. today her abdominal pain is more intense. 23:00 Method Of Arrival: EMS: [facility] mg2 23:00 Coronavirus screen: Client denies travel out of the [place] in the last 14 days. At this mg2 time, the client does not indicate any symptoms associated with coronavirus-19. Ebola Screen: No symptoms or risks identified at this time. Initial Sepsis Screen: Does the patient meet any 2 criteria? No. Patient's initial sepsis screen is negative. Does the patient have a suspected source of infection? No. Patient's initial sepsis screen is negative. Risk Assessment: Do you want to hurt yourself or someone else? Patient reports no desire to harm self or others. Onset of symptoms was March 30, 2020. 23:00 Acuity: CIARA 3 mg2 Historical: - Allergies: 23:10 meperidine HCl (rash); mg2 23:10 Morphine; mg2 - PMHx: 23:10 Depression; DM chemical induced; giant cell arteritis; Giant Cell Arthritis; mg2 Hyperlipidemia; Hypertension; Hypothyroidism; Myocardial infarction; renal cell carcinoma; renal cell carcinoma contained; stage 3 kidney failure; ADD/ADHD; - Immunization history:: Flu vaccine status is unknown. - Social history:: Smoking status: unknown. Screenin:11 Abuse screen: Denies threats or abuse. Denies injuries from another. Nutritional mg2 screening: No deficits noted. Tuberculosis screening: No symptoms or risk factors identified. Fall Risk IV access (20 points). Assessment: 23:10 General: Appears in no apparent distress. comfortable, Behavior is calm, cooperative. mg2 Pain: Complains of pain in abdomen. Neuro: Level of Consciousness is awake, alert, obeys commands, Oriented to person, place, time, situation. Cardiovascular: Capillary refill < 3 seconds Patient's skin is warm and dry. Respiratory: Airway is patent Respiratory effort is even, unlabored, Respiratory pattern is regular, symmetrical. GI: Reports lower abdominal pain, upper abdominal pain. : No signs and/or symptoms were reported regarding the genitourinary system. EENT: No signs and/or symptoms were reported regarding the EENT system. Derm: Skin is intact, is healthy with good turgor, Skin is pink, warm \T\ dry. normal. Musculoskeletal: Circulation, motion, and sensation intact. Capillary refill < 3 seconds. 23:48 Reassessment: Adrián Hernandez- called and updated about the patient, [phone]. mg2 03/31 02:19 Reassessment: Provider spoke to Stan and explained about the plan for mg2 transferring the [facility] to [facility]. 04:43 Reassessment: PATIENT IS ASLEEP COMFORTABLY WITH NORMAL VITAL SIGNS. AWAITING rv ACCEPTANCE FROM THE OTHER HOSPITAL. COVID 19 TEST CAME BACK NEGATIVE. 06:04 Reassessment: talked to the patient the plan of care. patient understood and agreed. rv also updated the sister on the phone. Reassessment: awaiting transportation. Pain: Current management is completely effective. Neuro: Level of Consciousness is awake, alert, obeys commands, Oriented to person, place, time, situation. Vital Signs: 03/30 23:03 BP 172 / 48; Pulse 52; Resp 12; Temp 98.3(O); Pulse Ox 97% on R/A; Pain 6/10; jp3 23:44 BP 153 / 62; Pulse 53; Resp 18; Pulse Ox 98% on R/A; mg2 03/31 00:00 BP 161 / 53; Pulse 54; Resp 16; Pulse Ox 98% ; rv 02:30 BP 132 / 49; Pulse 54; Resp 15; Pulse Ox 96% ; rv 03:30 BP 135 / 50; Pulse 56; Resp 16; Pulse Ox 96% on R/A; rv 04:30 BP 139 / 54; Pulse 58; Resp 16; Pulse Ox 96% on R/A; rv 06:04 BP 149 / 52; Pulse 62; Resp 16; Temp 98; Pulse Ox 97% on R/A; rv ED Course: 03/30 22:58 Patient arrived in ED. mg2 23:03 Maintain EMS IV. Dressing intact. Good blood return noted. Site clean \T\ dry. Gauge \T\ marvin 3 site: 22-gauge Right Hand. Patient maintains SpO2 saturation greater than 95% on room air. 23:03 Patient has correct armband on for positive identification. Bed in low position. Call jp3 light in reach. Side rails up X 1. Side rails up X2. Warm blanket given. Verbal reassurance given. youth nutritional monitor on. Pulse ox on. NIBP on. 23:06 Pieter Cuellar, RN is Primary Nurse. mg2 23:09 Triage completed. mg2 23:11 No provider procedures requiring assistance completed. mg2 23:11 Arm band placed on. mg2 23:39 [place] PA is PHCP. cp 23:39 Abhi Paz MD is Attending Physician. cp 03/31 00:40 CT Abd/Pelvis - IV Contrast Only In Process Unspecified. EDMS 00:57 IV discontinued, intact, bleeding controlled, No redness/swelling at site. Pressure ds4 dressing applied, IV in right hand removed due to unsuitability. 06:06 IV is patent, with fluids infusing freely, Patient transferred, IV remains in place. rv Administered Medications: 00:07 Drug: fentaNYL (PF) 25 mcg Route: IVP; Site: right hand; mg2 02:39 Follow up: Response: No adverse reaction mg2 00:08 Drug: NS 0.9% 500 ml Route: IV; Rate: 500 ml/hr; Site: right hand; mg2 02:39 Follow up: Response: No adverse reaction; IV Status: Completed infusion; IV Intake: mg2 500ml 00:08 Drug: Zofran (Ondansetron) 4 mg Route: IVP; Site: right hand; mg2 02:39 Follow up: Response: No adverse reaction mg2 00:08 Drug: Pepcid 20 mg Route: IVP; Site: right hand; mg2 02:39 Follow up: Response: No adverse reaction mg2 02:46 Drug: Meropenem 1 grams Route: IV; Rate: calculated rate; Site: PICC; rv 04:46 Follow up: IV Status: Completed infusion; IV Intake: 100ml rv 06:35 Drug: fentaNYL (PF) 25 mcg Route: IVP; Site: PICC; rv 06:42 Follow up: Response: Medication administered at discharge. rv Intake: 02:39 IV: 500ml; Total: 500ml. mg2 04:46 IV: 100ml; Total: 600ml. rv Outcome: 04:48 ER care complete, transfer ordered by . michael 06:06 Transferred by ground EMS to [facility], Transfer form completed. rv X-rays sent w/ patient. Note: report given to CONCETTA Valdez of [facility]. 06:06 Condition: good 06:06 Instructed on the need for transfer. 06:42 Patient left the ED. rv Signatures: Dispatcher [employer] EDMS Abhi Paz MD MD pkl Kobi Cervantes ds4 [place] PA PA cp Gardose, Michele, CONCETTA RN mg2 Demetrius Smalls RN RN rv Severiano Grant jp3
--- NOTE | 2020-03-31 04:49 | EDPHYS ---
Physician Documentation [facility] Name: Radha Ocampo Age: 79 yrs Sex: Female : 1940 Arrival Date: 03/30/2020 Time: 22:58 Bed 18 Private MD: ED Physician Abhi Paz HPI: 03/30 23:30 This 79 yrs old Female presents to ER via EMS with complaints of Abdominal cp Pain. 23:30 The patient presents with abdominal pain. cp 23:30 Onset: The symptoms/episode began/occurred suddenly, today, pain started after eating cp [employer] bar. Patient reports being discharged today from [facility] for diverticulitis and has PICC line for IV antibiotics. Historical: - Allergies: 23:10 meperidine HCl (rash); mg2 23:10 Morphine; mg2 - PMHx: 23:10 Depression; DM chemical induced; giant cell arteritis; Giant Cell Arthritis; mg2 Hyperlipidemia; Hypertension; Hypothyroidism; Myocardial infarction; renal cell carcinoma; renal cell carcinoma contained; stage 3 kidney failure; ADD/ADHD; - Immunization history:: Flu vaccine status is unknown. - Social history:: Smoking status: unknown. ROS: 23:35 Constitutional: Negative for body aches, chills, fever, poor PO intake. cp 23:35 Eyes: Negative for injury, pain, redness, and discharge. cp 23:35 Cardiovascular: Negative for chest pain, palpitations. 23:35 Respiratory: Negative for cough, shortness of breath, wheezing. 23:35 Abdomen/GI: Positive for abdominal pain, nausea and vomiting, Negative for diarrhea, constipation, black/tarry stool, rectal bleeding. 23:35 Back: Negative for radiated pain. 23:35 : Negative for urinary symptoms. 23:35 Neuro: Negative for altered mental status, headache, weakness. 23:35 All other systems are negative. Exam: 23:40 Constitutional: The patient appears in no acute distress, alert, awake, cp non-diaphoretic, non-toxic, well developed, well nourished, uncomfortable. 23:40 Head/Face: Normocephalic, atraumatic. cp 23:40 Eyes: Periorbital structures: appear normal, Conjunctiva: normal, no exudate, no injection, Sclera: no appreciated abnormality, Lids and lashes: appear normal, bilaterally. 23:40 ENT: External ear(s): are unremarkable, Nose: is normal, Mouth: is normal. 23:40 Chest/axilla: Inspection: normal. 23:40 Cardiovascular: Rate: bradycardic, Rhythm: regular. 23:40 Respiratory: the patient does not display signs of respiratory distress, Respirations: normal, no use of accessory muscles, no retractions, labored breathing, is not present, Breath sounds: are clear throughout, no decreased breath sounds, no stridor, no wheezing. 23:40 Abdomen/GI: Inspection: abdomen appears normal, Bowel sounds: active, all quadrants, Palpation: soft, in all quadrants, moderate abdominal tenderness, in the left upper quadrant and left lower quadrant, rebound tenderness, is not appreciated, voluntary guarding, is elicited in the left upper quadrant and left lower quadrant. 23:40 Back: pain, is absent, ROM is normal. 23:40 Skin: no rash present. Vital Signs: 23:03 BP 172 / 48; Pulse 52; Resp 12; Temp 98.3(O); Pulse Ox 97% on R/A; Pain 6/10; jp3 23:44 BP 153 / 62; Pulse 53; Resp 18; Pulse Ox 98% on R/A; mg2 03/31 00:00 BP 161 / 53; Pulse 54; Resp 16; Pulse Ox 98% ; rv 02:30 BP 132 / 49; Pulse 54; Resp 15; Pulse Ox 96% ; rv 03:30 BP 135 / 50; Pulse 56; Resp 16; Pulse Ox 96% on R/A; rv 04:30 BP 139 / 54; Pulse 58; Resp 16; Pulse Ox 96% on R/A; rv 06:04 BP 149 / 52; Pulse 62; Resp 16; Temp 98; Pulse Ox 97% on R/A; rv MDM: 03/30 23:45 Patient medically screened. 03/31 02:25 Data reviewed: vital signs, nurses notes, lab test result(s), radiologic studies, CT pkl scan. ED course: Talked to Dr. Smith, transfer to facility with Interventional Radiologist to drain intraabdominal abscess. 03:00 ED course: Talked to [facility] ( [facility] ) Need to have Negative Covid 19 swab test before pkl transfer. 04:44 ED course: Talked to Dr. Lester ( Hospitalist at [facility] ) Accepted transfer. pkl 05:26 ED course: Talked to Dr. Destiny Dejesus ( General Surgeon ) at [facility]. Will consult. pkl 03/30 22:59 Order name: Basic Metabolic Panel; Complete Time: 23:49 mg2 03/30 23:50 Interpretation: Normal except: GLUC 183; BUN 23; GFR 55. cp 03/30 22:59 Order name: CBC with Diff; Complete Time: 23:49 mg2 03/30 22:59 Order name: Hepatic Function; Complete Time: 23:49 mg2 03/30 22:59 Order name: Lipase; Complete Time: 23:49 mg2 03/31 04:09 Order name: SARS-COV-2 RT PCR; Complete Time: 04:11 EDMS 03/30 22:59 Order name: IV Saline Lock; Complete Time: 23:26 mg2 03/30 23:52 Order name: CT Abd/Pelvis - IV Contrast Only cp 03/30 22:59 Order name: Labs collected and sent; Complete Time: 23:26 mg2 Administered Medications: 00:07 Drug: fentaNYL (PF) 25 mcg Route: IVP; Site: right hand; mg2 02:39 Follow up: Response: No adverse reaction mg2 00:08 Drug: NS 0.9% 500 ml Route: IV; Rate: 500 ml/hr; Site: right hand; mg2 02:39 Follow up: Response: No adverse reaction; IV Status: Completed infusion; IV Intake: mg2 500ml 00:08 Drug: Zofran (Ondansetron) 4 mg Route: IVP; Site: right hand; mg2 02:39 Follow up: Response: No adverse reaction mg2 00:08 Drug: Pepcid 20 mg Route: IVP; Site: right hand; mg2 02:39 Follow up: Response: No adverse reaction mg2 02:46 Drug: Meropenem 1 grams Route: IV; Rate: calculated rate; Site: PICC; rv 04:46 Follow up: IV Status: Completed infusion; IV Intake: 100ml rv 06:35 Drug: fentaNYL (PF) 25 mcg Route: IVP; Site: PICC; rv 06:42 Follow up: Response: Medication administered at discharge. rv Disposition: 19:01 Co-signature as Attending Physician, Abhi Paz MD. pkl Disposition: 03/31/20 04:48 Transfer ordered to [facility]. Diagnosis is Perforation of small bowel diverticulitis with peridiverticular abscess. - Reason for transfer: Higher level of care. - Accepting physician is Dr. Lester. - Condition is Stable. - Problem is new. - Symptoms are unchanged. Signatures: Dispatcher [employer] EDMS Abhi Paz MD MD pkl [place] PA PA cp Pieter Cuellar, CONCETTA RN mg2 Demetrius Smalls RN RN rv Corrections: (The following items were deleted from the chart) 02:25 02:22 Co-signature as Attending Physician, Abhi rodriguez pkl 03:03 02:48 CORONAVIRUS+MR.LAB.BRZ ordered. EDMS EDMS 05:55 03/30 23:30 Patient reports being discharged to from [facility] for diverticulitis cp and has PICC line for IV antibiotics. cp 03/31 06:42 04:48 03/31/2020 04:48 Transfer ordered to [facility]. rv Diagnosis is Perforation of small bowel diverticulitis with peridiverticular abscess. Reason for transfer: Higher level of care. Accepting physician is Dr. Lester. Condition is Stable. Problem is new. Symptoms are unchanged. pkl
[2020-03-31] MEDS ORDERED: MORPHINE 2 MG/ML SYR ONE (06:43)
[2020-03-31 06:55] VITALS: BP 149/52; TEMP 98; O2SAT 97
--- NOTE | 2020-03-31 08:23 | RAD REPORT ---
EXAM DESCRIPTION: CT - Abdomen Pelvis W Contrast - 03/31/2020 4:37 am CLINICAL HISTORY: Recent inpatient for diverticulitis, discharged today, abdominal pain TECHNIQUE: Contiguous axial images obtained through the abdomen and pelvis following the uneventful administration of IV contrast. Coronal and sagittal reformatted images were provided. This exam was performed according to our departmental dose-optimization program, which includes autom ated exposure control, adjustment of the mA and/or kV according to patient size and/or use of iterati ve reconstruction technique. COMPARISON: 03/25/2020 FINDINGS: Lung bases: No focal consolidation. Coronary artery and mitral annular calcification. Liver: The liver is enlarged. Hepatic parenchymal calcifications compatible with remote granulomatous organism exposure. Gallbladder and biliary system: Prior cholecystectomy. Intrahepatic and extrahepatic biliary dilatati on. Pancreas: Mild pancreatic parenchymal atrophy. Spleen: Splenic parenchymal calcifications compatible with remote granulomatous organism exposure. Adrenals: Unremarkable Kidneys: The right kidney is surgically absent. Normal renal cortical enhancement on the left. No last culi. No hydronephrosis. Bowel: Postsurgical changes of the stomach. Gastric diverticulum. Small and large bowel diverticula. Progressive thickening of proximal jejunal loops within the left abdomen. Moderate inflammation withi n the adjacent mesentery. At site of previous free air, there has been development of a gas containin g collection within the central mesentery abutting the thickened small bowel measuring approximately 5.5 x 3 x 4.5 cm (series 501 image 50 and series 502 image 39). No obstruction. Appendix: Normal caliber appendix. No findings to suggest acute appendicitis. Urinary bladder: Bilateral bladder diverticula. Reproductive: Unremarkable as visualized Lymph nodes: No pathologically enlarged lymph nodes. Peritoneum: Small amount of free fluid within the abdomen and pelvis. No free air. Vessels: Moderate to severe atherosclerotic disease. No abdominal aortic aneurysm. Abdominal wall: Right lateral abdominal wall hernia containing a portion of the liver. Bones: Multilevel spondylosis. No acute fracture. IMPRESSION: 1. Interval progression of findings suggestive of small bowel diverticulitis. There abdalla s been development of a peridiverticular abscess measuring 5.5 x 3 x 4.5 cm at site of prior microper foration/free air. 2. Other findings as above. Electronically signed by: Caroline Arechiga MD 03/31/2020 1:39 AM CDT Due to temporary technical issues with the PACS/Fluency reporting system, reports are being signed by the in house radiologist without review as a courtesy to ensure prompt reporting. The interpreting r adiologist is fully responsible for the content of the report.
== END 2020-03-31 06:42 | disposition short-term general hospital (02) ==
LOC: ER 22:56
DX: K57.00 Diverticulitis of small intestine with perforation and abscess without bleeding (principal); Z88.6 Allergy status to analgesic agent
CPT/HCPCS: 85025; 80048; 36415; 80076; 83690; 74177; 99285; V0003; Q9967; J3010 ×2; J7040; J2405; J2270; U0003

== ENCOUNTER 2020-04-21 10:09 | Emergency (ER) | payer OTHER ==
--- OUTSIDE RECORDS SUMMARY | 2020-04-21 10:11 | XMS REPORT | Clinical Summary ---
:1940 Author Organization [facility] Address [address] [place] [address] Care Team Providers Name Role Phone Unavailable Primary Care Provider Unavailable Allergies Active Allergy Reactions Severity Noted Date Comments Meperidine Other (See Comments) 03/31/2020 halluci nation Morphine Rash Low 03/31/2020 Medications Medication Sig Dispensed Refills Start End Date Status Date aspirin 81 MG EC Take 1 tablet by 0 Active tablet mouth daily. atorvastatin Take 1 tablet by 0 Active (LIPITOR) 80 MG mouth daily. tablet levothyroxine Take 1 tablet by 0 Active (SYNTHROID, mouth daily. 0 LEVOTHROID) 75 MCG tablet losartan (COZAAR) Take 1 tablet by 0 Active 100 MG tablet mouth daily. 0 pregabalin Take 1 tablet by 0 Ac tive (LYRICA) 50 MG mouth daily. capsule nitroglycerin Place 1 tablet 0 A ctive (NITROSTAT) 0.4 MG under the tongue as SL tablet needed. predniSONE Take 1 tablet by 0 Ac tive (DELTASONE) 20 MG mouth 2 (two) times tablet daily. cycloSPORINE Place 1 drop into 0 Active (RESTASIS) 0.05 % both eyes as ophthalmic needed. emulsion sertraline Take 1 tablet by 0 Ac tive (ZOLOFT) 100 MG mouth daily Noon 8 tablet time. valACYclovir Take 1 tablet by 0 Active (VALTREX) 500 MG mouth as needed. tablet alpha lipoic acid Take 1 tablet by 0 Active 600 mg Cap mouth daily. calcium Take 1 tablet by 0 Act ana carbonate-vitamin mouth daily. D3 (CALCIUM-VITAMIN D) 500 mg(1,250mg) -200 unit per tablet diltiazem Take 1 tablet by 0 Act ana (DILT-XR) 180 mg mouth nightly. 0 24 hr capsule furosemide (LASIX) Take 20 mg by mouth 0 Active 20 MG tablet as needed. 0 tocilizumab Inject 1 Dose 0 Acti ve (ACTEMRA) 162 subcutaneously mg/0.9 mL Syrg every 7 days Friday. cranberry fruit Take 1 tablet by 0 0 Discontinued (CRANBERRY) 450 mg mouth daily. 20 Tab fluconazole Take 2 tablets (400 2 tablet 0 04/10/20 (DIFLUCAN) 200 MG mg total) by mouth 0 20 tablet daily for 4 days. levoFLOXacin Take 1 tablet (500 4 tablet 0 04/10/20 (LEVAQUIN) 500 MG mg total) by mouth 0 20 tablet daily for 4 days. metroNIDAZOLE Take 1 tablet (500 15 tablet 0 0 (FLAGYL) 500 MG mg total) by mouth 0 20 tablet every 8 (eight) hours for 5 days. Active Problems Problem Noted Date Hypothyroidism 04/01/2020 Diabetes mellitus 04/01/2020 Hypertension 04/01/2020 Giant cell arteritis 04/01/2020 Diverticulitis of intestine with abscess 03/31/2020 Encounters Date Type Specialty Care Team Description 04/02/2020 Travel 03/31/2020 - Hospital Encounter Oncology Lay Lester ticulitis of large intestine with abscess without bleeding; 04/05/2020 MD Renetta Essential hypertension; Kiersten House CKD (chroni c kidney disease) stage 2, GFR 60-89 ml/min; MD Freida Dementia without behavioral disturbance, unspecified dementia type (HCC); Anil Pearson Hypothyroidi sm, unspecified type; MD Jos Giant cell andre ritis syndrome (HCC); Immunosuppresse d status (HCC) after 04/21/2019 Social History Tobacco Use Types Packs/Day Years Used Date Never Smoker Smokeless Tobacco: Never Used Sex Assigned at Date Recorded Not on file Job Start Date Occupation Industry Not on file Not on file Not on file Travel History Travel Start Travel End No recent travel history available. Last Filed Vital Signs Vital Sign Reading Time Taken Blood Pressure 150/75 04/05/2020 5:07 AM CDT Pulse 62 04/05/2020 4:36 AM CDT Temperature 35.9 C (96.7 F) 04/05/2020 4:36 AM CDT Respiratory Rate 18 04/05/2020 4:36 AM CDT Oxygen Saturation 96% 04/05/2020 4:36 AM CDT Inhaled Oxygen Concentration - - Weight 67 kg (147 lb 11.2 oz) 04/02/2020 11:00 AM CDT Height 152.4 cm (5') 04/02/2020 11:00 AM CDT Body Mass Index 28.85 04/02/2020 11:00 AM CDT Plan of Treatment Not on file Procedures Procedure Name Priority Date/Time Associated Comments Diagnosis CBC W/PLT COUNT & AUTO LOIS 04/05/2020 6:24 R esults for this DIFFERENTIAL AM CDT procedure are i n the results section. CBC W/PLT COUNT & AUTO LOIS 04/05/2020 6:24 R esults for this DIFFERENTIAL AM CDT procedure are i n the results section. COMPREHENSIVE Routine 04/05/2020 4:25 Results fo r this METABOLIC PANEL AM CDT procedure ar e in the results section. COMPREHENSIVE Routine 04/04/2020 4:01 Results fo r this METABOLIC PANEL AM CDT procedure ar e in the results section. CBC W/PLT COUNT & AUTO Routine 04/03/2020 4:04 R esults for this DIFFERENTIAL AM CDT procedure are i n the results section. CBC W/PLT COUNT & AUTO Routine 04/03/2020 4:04 R esults for this DIFFERENTIAL AM CDT procedure are i n the results section. COMPREHENSIVE Routine 04/03/2020 4:04 Results fo r this METABOLIC PANEL AM CDT procedure ar e in the results section. CBC W/PLT COUNT & AUTO Routine 04/02/2020 4:31 R esults for this DIFFERENTIAL AM CDT procedure are i n the results section. CBC W/PLT COUNT & AUTO Routine 04/02/2020 4:31 R esults for this DIFFERENTIAL AM CDT procedure are i n the results section. COMPREHENSIVE Routine 04/02/2020 4:31 Results fo r this METABOLIC PANEL AM CDT procedure ar e in the results section. CBC W/PLT COUNT & AUTO Routine 04/01/2020 4:44 R esults for this DIFFERENTIAL AM CDT procedure are i n the results section. PHOSPHORUS Routine 04/01/2020 4:44 Results for this AM CDT procedure are i n the results section. MAGNESIUM Routine 04/01/2020 4:44 Results for this AM CDT procedure are i n the results section. CBC W/PLT COUNT & AUTO Routine 04/01/2020 4:44 R esults for this DIFFERENTIAL AM CDT procedure are i n the results section. COMPREHENSIVE Routine 04/01/2020 4:44 Results fo r this METABOLIC PANEL AM CDT procedure ar e in the results section. FUNGUS CULTURE + Routine 03/31/2020 6:14 Results for this SMEAR PM CDT procedure are i n the results section. ANAEROBIC CULTURE Routine 03/31/2020 6:14 Result s for this PM CDT procedure are i n the results section. CT DRAINAGE ABDOMINAL LOIS 03/31/2020 6:12 Re sults for this PM CDT procedure are i n the results section. WOUND CULTURE + GRAM Routine 03/31/2020 6:04 Res ults for this STAIN PM CDT procedure are i n the results section. CBC W/PLT COUNT & AUTO Routine 03/31/2020 9:15 R esults for this DIFFERENTIAL AM CDT procedure are i n the results section. COMPREHENSIVE Add-On 03/31/2020 9:15 Results fo r this METABOLIC PANEL AM CDT procedure ar e in the results section. LACTIC ACID, VENOUS Routine 03/31/2020 9:15 Resu lts for this AM CDT procedure are i n the results section. MAGNESIUM Routine 03/31/2020 9:15 Results for this AM CDT procedure are i n the results section. PT/APTT STAT 03/31/2020 9:15 Results for this AM CDT procedure are i n the results section. CBC W/PLT COUNT & AUTO Routine 03/31/2020 9:15 R esults for this DIFFERENTIAL AM CDT procedure are i n the results section. after 04/21/2019 Results CBC with platelet count + automated diff (04/05/2020 6:24 AM CDT)Only the most recent of5 resultswithin the time period is included. WBC 9.6 3.5 - 10.5 K/L [facility] RBC 4.29 3.93 - 5.22 M/L [facility] Hemoglobin 13.1 11.2 - 15.7 GM/DL [facility] Hematocrit 40.0 34.1 - 44.9 % [facility] CENTER MCV 93.2 79.4 - 94.8 fL [facility] MCH 30.5 25.6 - 32.2 pg [facility] HE [facility] MCHC 32.8 32.2 - 35.5 GM/DL [facility] RDW 14.6 (H) 11.7 - 14.4 % [facility] Platelets 142 (L) 150 - 450 K/CU MM [facility] MPV 10.7 9.4 - 12.3 fL [facility] HE [facility] nRBC 0 0 - 0 /100 WBC [facility] % Neutros 85 % [facility] % Lymphs 9 % [facility] CENTER % Monos 5 % [facility] CENTER % Eos 0 % [facility] % Baso 0 % [facility] # Neutros 8.14 (H) 1.56 - 6.13 K/L [facility] # Lymphs 0.83 (L) 1.18 - 3.74 K/L [facility] # Monos 0.49 (H) 0.24 - 0.36 K/L [facility] # Eos 0.01 (L) 0.04 - 0.36 K/L [facility] # Baso 0.02 0.01 - 0.08 K/L [facility] Immature Granulocytes-Relative 1 0 - 1 % C HI [facility] Specimen Blood Performing Organization Address City/State/Zipcode Phone Number [phone] [place] [address] CENTER Comprehensive metabolic panel (04/05/2020 4:25 AM CDT)Only the most recent of6 resultswithin the time period is included. Protein, Total 5.5 (L)Comment: Specimen 6.0 - 8.3 gm/dL [facility] slightly hemolyzed [facility] Albumin 3.3 (L)Comment: Specimen 3.5 - 5.0 g/dL [facility] slightly hemolyzed [facility] Alkaline Phosphatase 79 40 - 150 U/L [facility] Total Bilirubin 0.4Comment: Specimen 0.2 - 1.2 mg/dL [facility] slightly hemolyzed [facility] Sodium 139 136 - 145 meq/L [facility]TH [facility] Potassium 4.2Comment: Specimen 3.5 - 5.1 meq/L [facility] slightly hemolyzed [facility] Chloride 106 98 - 107 meq/L [facility] CO2 25 22 - 29 meq/L [facility]TH [facility] BUN 14 7 - 21 mg/dL [facility]TH [facility] Creatinine 0.80Comment: Specimen 0.57 - 1.25 mg/dL [facility] slightly hemolyzed [facility] Glucose 172 (H) 70 - 105 mg/dL [facility]TH [facility] Calcium 8.4 8.4 - 10.2 mg/dL [facility] AST 23Comment: Specimen 5 - 34 U/L [facility] slightly hemolyzed [facility] ALT 23Comment: Specimen 6 - 55 U/L [facility] slightly hemolyzed [facility] EGFR 69Comment: ESTIMATED GFR mL/min/1.73 sq m [facility] IS NOT ACCURATE [facility] CREATININE CLEARANCE IN PREDICTING GLOMERULAR FILTRATION RATE. ESTIMATED GFR IS NOT APPLICABLE FOR DIALYSIS PATIENTS. Specimen Blood Narrative Performed At Parts Runner ID - EVELIA Weiss [facility] Performing Organization Address City/[facility]/Zipcode Phone Number [address] [address] CENTER Phosphorus (04/01/2020 4:44 AM CDT) Phosphorus 2.0 (L)Comment: Specimen 2.3 - 4.7 mg/dL [facility] slightly hemolyzed [facility] Specimen Blood Narrative Performed At Parts Runner ID - EVELIA Weiss [facility] Performing Organization Address City/[facility]/Zipcode Phone Number [address] [address] CENTER Magnesium (04/01/2020 4:44 AM CDT)Only the most recent of2 resultswithin the time period is included. Magnesium 2.0Comment: Specimen slightly 1.6 - 2.6 mg/dL [facility] Spec[facility] Blood Narrative Performed At Parts Runner ID - EVELIA Weiss [facility] Performing Organization Address City/[facility] Phone Number [address] [address] [place] Anaerobic culture (03/31/2020 6:14 PM CDT) Result No anaerobes isolated [facility] Specimen Body Fluid Performing Organization Address City/[facility] Phone Number [address] [address] CENTER Fungus culture + smear (03/31/2020 6:14 PM CDT) Result 3+ Lorri albicans (A) [facility] Fungus Smear No fungi seen [facility] Specimen Body Fluid Performing Organization Address City/[facility]/Zipcode Phone Number [address] drainage abdominal (03/31/2020 6:12 PM CDT) Specimen Narrative Performed At FINAL REPORT RIS PROCEDURE: CT, DRAINAGE, ABDOMINAL DOSE REDUCTION: The examination was perf ormed according to departmental dose-optimization program w hic includes automated exposure control, adjustment of the mA a nd/or kV according to patient size and/or use of iterative reconstruct ion technique. HISTORY: Diverticulitis with increasing size of abscess Parts Runner: Bam Wilson MD Moderate sedation: See nursing medication administration re cord regarding medication doses. Vital signs were monitored throughout th e procedure by a nurse, and remained stable. Physician patient face to face intra-service time was 30 minutes. Local anesthesia: 5 cc 2% lidocaine TECHNIQUE: Informed written consent for the procedure was obtained. With the patient in the supine position, the area was scanned.The skin in the region of interest was prepp ed and draped in the usual sterile manner. Following local anesthes ia a 19-gauge percutaneous entry needle was advanced into the colle ction using CT guidance. A 0.035 Stanley wire was advanced into the a bscess. Tract was dilated using serial dilators. Subsequently a 8 Tajik all-purpose drainage catheter was advanced into the collectio n using CT guidance. Approximately 15 cc of thick purulent fl uid was obtained. Samples were submitted to microbiology for [facility] testing.Catheter was anchored to the skin with 2-0 Prolene landa ture and attached to a BAY bulb. Postprocedure CT evaluation of the area revealed near complete evacuation of the cavity, still with sma ll amount of peritoneal gas anterior to where the fluid collection w as. Patient tolerated the procedure well and remained hemodynamically stable throughout. No significant blood loss IMPRESSION: Successful and uncomplicated CT-guided p lacement of a drainage catheter into the mid abdominal abscess. Signed: Bam Wilson MD Report Verified Date/Time:04/01/2020 12:12:30 Reading Location: [address] Reading Room Procedure Note Interface, External Ris In - 04/01/2020 12:14 PM CDT FINAL REPORT PROCEDURE: CT, DRAINAGE, ABDOMINAL DOSE REDUCTION: The examination was perf ormed according to departmental dose-optimization program w hich includes automated exposure control, adjustment of the mA a nd/or kV according to patient size and/or use of iterative reconstruct ion technique. HISTORY: Diverticulitis with increasing size of abscess Parts Runner: Bam Wilson MD Moderate sedation: See nursing medication administration re cord regarding medication doses. Vital signs were monitored throughout th e procedure by a nurse, and remained stable. Physician patient face to face intra-service time was 30 minutes. Local anesthesia: 5 cc 2% lidocaine TECHNIQUE: Informed written consent for the procedure was obtained. With the patient in the supine position, the area was scanned. The skin in the region of interest was prepp ed and draped in the usual sterile manner. Following local anesthes ia a 19-gauge percutaneous entry needle was advanced into the colle ction using CT guidance. A 0.035 Stanley wire was advanced into the a bscess. Tract was dilated using serial dilators. Subsequently a 8 Tajik all-purpose drainage catheter was advanced into the collectio n using CT guidance. Approximately 15 cc of thick purulent fl uid was obtained. Samples were submitted to microbiology for [facility] testing. Catheter was anchored to the skin with 2-0 Prolene landa ture and attached to a BAY bulb. Postprocedure CT evaluation of the area revealed near complete evacuation of the cavity, still with sma ll amount of peritoneal gas anterior to where the fluid collection w as. Patient tolerated the procedure well and remained hemodynamically stable throughout. No significant blood loss IMPRESSION: Successful and uncomplicated CT-guided p lacement of a drainage catheter into the mid abdominal abscess. Signed: Bam Wilson MD Report Verified Date/Time: 04/01/2020 1 2:12:30 Reading Location: [facility] C0T [facility] Reading Room Performing Organization Address City/State/Zipcode Phone Number GE RIS Wound culture + gram stain (03/31/2020 6:04 PM CDT) Result 2+ Lorri albicans (A) [facility] Result 2+ Klebsiella oxytoca (A) [facility] Result 2+ Citrobacter freundii (A) [facility] Gram Stain Result 4+ WBCs [facility] Gram Stain Result <1+ budding yeast [facility] Specimen Wound Organism Antibiotic Method Susceptibility Klebsiella oxytoca Amikacin <=2: Suscepti ble Klebsiella oxytoca Ampicillin + Sulbactam 4: Bella ceptible Klebsiella oxytoca Aztreonam <=1: Suscepti ble Klebsiella oxytoca Cefepime <=1: Suscepti ble Klebsiella oxytoca Cefoxitin <=4: Suscepti ble Klebsiella oxytoca Ceftazidime <=1: Suscepti ble Klebsiella oxytoca Ceftriaxone <=1: Suscepti ble Klebsiella oxytoca Ertapenem <=0.5: Suscep tible Klebsiella oxytoca Gentamicin <=1: Suscepti ble Klebsiella oxytoca Levofloxacin <=0.12: Susce ptible Klebsiella oxytoca Meropenem <=0.25: Susce ptible Klebsiella oxytoca Tetracycline <=1: Suscepti ble Klebsiella oxytoca Tobramycin <=1: Suscepti ble Klebsiella oxytoca Trimethoprim + Sulfamethoxazole <=20: Susceptible Citrobacter freundii Amikacin <=2: Suscep tible Citrobacter freundii Aztreonam <=1: Suscep tible Citrobacter freundii Cefepime <=1: Suscep tible Citrobacter freundii Cefoxitin >=64: Resis tant Citrobacter freundii Ceftazidime <=1: Suscep tible Citrobacter freundii Ceftriaxone <=1: Suscep tible Citrobacter freundii Ertapenem <=0.5: Susc eptible Citrobacter freundii Gentamicin <=1: Suscep tible Citrobacter freundii Levofloxacin <=0.12: Bella ceptible Citrobacter freundii Meropenem <=0.25: Bella ceptible Citrobacter freundii Tetracycline <=1: Suscep tible Citrobacter freundii Tobramycin <=1: Suscep tible Citrobacter freundii Trimethoprim + Sulfamethoxazole <=20: Susceptible Performing Organization Address City/State/Zipcode Phone Number [facility] [address] [place] [address] CENTER PT/aPTT (03/31/2020 9:15 AM CDT) Protime 13.5 11.9 - 14.2 seconds [facility] INR 1.06 <=5.90 [facility] PTT 24.2 22.5 - 36.0 seconds [facility] Specimen Blood Narrative Performed At Effective 01/13/2019: PT Reference Range [facility] Change New: 11.9-14.2Previous: 11.7-14.7 RECOMMENDED COUMADIN/WARFARIN INR THERAPY RANGES STANDARD DOSE: 2.0-3.0Includes: PROPHYLAXIS for venous thrombosis, systemic embolization; TREATMENT for venous thrombosis and/or pulmonary embolus. HIGH RISK: Target INR is 2.5-3.5 for patients wiht mechanical heart valves. Performing Organization Address City/State/Zipcode Phone Number [address] [address] CENTER Lactic acid, venous (03/31/2020 9:15 AM CDT) Lactate, Venous 1.05 0.50 - 2.20 mmol/L [facility] Specimen Blood Narrative Performed At Parts Runner ID - MICHELL Kaleb [facility] Performing Organization Address City/State/Zipcode Phone Number [address] [address] CENTER after 04/21/2019 Insurance Payer Benefit Plan / Group Subscriber ID Type Phone A ddress [facility] - MEDICARE AARP/MEDICARE COMPLETE xxxxxxxxx [facility] CARE [employer] (Home) [id number] [place] [address] Advance Directives For more information, please contact:[address] [phone] Code Status Date Activated Date Inactivated Comments Partial Code 03/31/2020 10:40 AM 04/05/2020 3:11 PM This code status was determined by: Patient Drug Protocol After Arrest Occurs? No Mechanical Ventilation with Intubation? No Bag/Mask? No Internal/External Pacemaker? No Transfer to Critical Care? Yes Chest Compressions? No Defibrillation/Cardioversion? No Full Code 03/31/2020 10:26 AM 03/31/2020 10:40 AM This code status was determined by: Patient
--- OUTSIDE RECORDS SUMMARY | 2020-04-21 10:13 | XMS REPORT | Continuity of Care Document ---
:1940 Author Organization [facility] t Address [address] [place] [address] Dr. [address]. [address] [place] [address] Care Team Providers Name Role Phone PRISCILLA AGUIRRE Attending Clinician Unavailable Trevon VERGARA, Priscilla Attending Clinician Freida House MD Attending Clinician Michel VERGARA, Jos Attending Clinician FREIDA HOUSE Admitting Clinician Unavailable Payers Payer Name Policy Type Policy Number Effective Expiration Source Date Date [facility] - xxxxxxxxx [facility] - CAREAARP/MEDICARE Medical COMPLETExxxxxxxxx Center Advance Directives Directive Decision Effective Date Termination Date Comments Sour ce Partial Code This Yes 2020-03-31 2020-04-05 [facility] - code status was 00:00:00 00:00:00 Medical C enter determined by: Patient Drug Protocol After Arrest Occurs? No Mechanical Ventilation with Intubation? No Bag/Mask? No Internal/External Pacemaker? No Transfer to Critical Care? Yes Chest Compressions? No Defibrillation/Card ioversion? 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 04-01 [facility] - 00:00: Medical 00 [place] Diverticul Diverticul Disease Active [facility] itis of itis of 03-31 [facility] - intestine intestine 00:00: Medi last with with 00 [place] abscess abscess Allergies, Adverse Reactions, Alerts Allergy Allergy Status Severity Reaction(s) Onset Inactive Treating Comm ents Source Name Type Date Date Clinician Sreekanth Sheehan Active Other (See hallucina [facility] to Comments) 03-31 [facility]ion [facility] - adverse 00:00: Medical reaction 00 [place] Morphine Propensi Active Rash [facility] to 03-31 [facility] - adverse 00:00: Medical reaction 00 [place] Social History Social Habit Start Date Stop Date Quantity Comments Source Sex Assigned At [facility] Smoking Status Start Date Stop Date Source Never smoker [facility] edical [place] Medications Ordered Filled Start Stop Current Ordering Indication Dosage Frequency Signature Comments Components Source Medication Medication Date Date Medication? Clinician (SIG) Name Name fluconazole 2020- No 400mg QD Take [address] (DIFLUCAN) 04-06- tablets [facility] - 200 MG 00:00: 23:59 (400 mg Medical tablet 00 :00 total) by Center mouth daily for 4 days. levoFLOXaci 2020- No 500mg Q24H Take [address] n 04-06 tablet [facility] - (LEVAQUIN) 00:00: 23:59 (500 mg Med ical 500 MG 00 :00 total) by Center tablet mouth daily for 4 days. metroNIDAZO 2020- No 500mg Take [address] LE (FLAGYL) 04-05 tablet [facility] - 500 MG 00:00: 23:59 (500 mg Medical tablet 00 :00 total) by Center mouth every 8 (eight) hours for 5 days. cranberry 2019- 2020- No 1{tbl} QD Take [address] [facility] fruit 03-31 tablet by [facility] - (CRANBERRY) 10:26: 00:00 mouth Medi last 450 mg Tab 02 :00 daily. [place] valACYclovi Yes 1{tbl} Take [address] r (VALTREX) 8-14 tablet by Vikram es - 500 MG 09:07: mouth as Medical tablet 21 needed. [place] alpha 2020-0 Yes 1{tbl} QD Take [address] lipoic acid 8-14 tablet by Vikram es - 600 mg Cap 09:07: mouth Medica l 21 daily. [place] calcium 2020-0 Yes 1{tbl} QD Take [address] carbonate-v 8-14 tablet by Vikram es - itamin D3 09:07: mouth Medical (CALCIUM- 21 daily. [place] TAMIN D) 500 mg(1,250mg) -200 unit per tablet tocilizumab 2020-0 Yes 1{dose} Inject [address] (ACTEMRA) 8-14 Dose [facility] - 162 mg/0.9 09:07: subcutaneo M edical mL Syrg 21 usly every Center 7 days Friday. nitroglycer 2020-0 Yes 1{tbl} Place [address] in 8-14 tablet [facility] - (NITROSTAT) 09:07: under the M edical 0.4 MG SL 20 tongue as Cente r tablet needed. predniSONE 2020-0 Yes 1{tbl} Q.5D Take [address] (DELTASONE) 8-14 tablet by Vikram es - 20 MG 09:07: mouth 2 Medical tablet 20 (two) Center times daily. cycloSPORIN 2020-0 Yes 1[drp] Place [address] E 8-14 drop into [facility] - (RESTASIS) 09:07: both eyes Me dical 0.05 % 20 as needed. [place] ophthalmic emulsion pregabalin 2020-0 Yes 1{tbl} QD Take [address] (LYRICA) 50 8-14 tablet by Vikram es - MG capsule 09:00: mouth Medica l 08 daily. [place] aspirin 81 2020-0 Yes 1{tbl} QD Take [address] MG EC 8-14 tablet by [facility] - tablet 08:55: mouth Medical 18 daily. [place] atorvastati 2020-0 Yes 1{tbl} QD Take [address] n (LIPITOR) 8-14 tablet by Vikram es - 80 MG 08:55: mouth Medical tablet 18 daily. [place] furosemide 2020-0 Yes 20mg Take [address] (LASIX) 20 6-17 by mouth [facility] - MG tablet 00:00: as needed. Me dical 00 [place] levothyroxi Yes 1{tbl} QD Take [address] ne 3-20 tablet by [facility] - (SYNTHROID, 00:00: mouth Medic al LEVOTHROID) 00 daily. [place] 75 MCG tablet losartan Yes 1{tbl} QD Take 1 [facility] (COZAAR) 3-20 tablet by [facility] - 100 MG 00:00: mouth Medical tablet 00 daily. [place] diltiazem Yes 1{tbl} QD Take [address] (DILT-XR) 2-11 tablet by [facility] - 180 mg 24 00:00: mouth Medical hr capsule 00 nightly. Cente r sertraline Yes 1{tbl} QD Take [address] (ZOLOFT) 4-18 tablet by [facility] - 100 MG 00:00: mouth Medical tablet 00 daily Noon Center time. Vital Signs Vital Name Observation Time Observation Value Comments Source Systolic blood 2020-04-05 05:07:00 150 mm[Hg] [facility] Diastolic blood 2020-04-05 05:07:00 75 mm[Hg] [facility] Heart rate 2020-04-05 04:36:00 62 /min [facility] Body temperature 2020-04-05 04:36:00 35.94 Dianna [facility] Respiratory rate 2020-04-05 04:36:00 18 /min [facility] Oxygen saturation in 2020-04-05 04:36:00 96 /min [facility] Arterial blood by Medical Ce nter Pulse oximetry Body height 2020-04-02 11:00:00 152.4 cm [facility] Body weight Measured 2020-04-02 11:00:00 66.996 kg [facility] BMI 2020-04-02 11:00:00 28.85 kg/m2 [facility] Procedures Procedure Date / Time Performing Clinician Source Performed CBC W/PLT COUNT & AUTO 2020-04-05 06:24:00 Ronald Covington [facility] S t [facility] COMPREHENSIVE METABOLIC 2020-04-05 04:25:00 Kiersten House [facility] 2020-04-04 04:01:00 Harsh [facility] 2020-04-03 04:04:00 Harsh [facility] CBC W/PLT COUNT & AUTO 2020-04-03 04:04:00 Harsh [facility] METABOLIC 2020-04-02 04:31:00 Harsh [facility] CBC W/PLT COUNT & AUTO 2020-04-02 04:31:00 Harsh [facility] 2020-04-01 04:44:00 Harsh [facility] MAGNESIUM 2020-04-01 04:44:00 Cristinosuellen [facility] PHOSPHORUS 2020-04-01 04:44:00 Harsh [facility] CBC W/PLT COUNT & AUTO 2020-04-01 04:44:00 Cristinosuellen [facility] ANAEROBIC CULTURE 2020-03-31 18:14:00 [place] [facility] FUNGUS CULTURE + SMEAR 2020-03-31 18:14:[address] [facility] CT DRAINAGE ABDOMINAL 2020-03-31 18:12:00 Harsh [facility] WOUND CULTURE + GRAM 2020-03-31 18:04:00 Gómez [facility] PT/APTT 2020-03-31 09:15:00 Isac [facility] MAGNESIUM 2020-03-31 09:15:00 Harsh [facility] LACTIC ACID, VENOUS 2020-03-31 09:15:00 Athreya, Khannan [facility] COMPREHENSIVE METABOLIC 2020-03-31 09:15:00 Kiersten House [facility] - PANEL [facility] CBC W/PLT COUNT & AUTO 2020-03-31 09:15:[address] [facility] DIFFERENTIAL [facility] Results Test Description Test Time Test Comments Results Result Comments Source Fungus culture + smear 2020-04-17 18:07:00 Test Item Value Reference Range Interpretation Comme nts Result (test code = 6463-4) 3+ Lorri albicans A Fungus Smear (test code = 1406) No fungi seen Lab Interpretation (test code = 71896-9) [facility]normal [facility] [id number] 18:07:00 Test Item Value Reference Range Interpretation Comments CULTURE (BEAKER) A 3+ Lorri albicans (test code = 1095) FUNGUS SMEAR No fungi seen (BEAKER) (test code = 1406) Anaerobic [id number] 18:52:00 Test Item Value Reference Range Interpretation Comments Result (test code = No anaerobes isolated 6463-4) [id number] 18:52:00 Test Item Value Reference Range Interpretation Comments CULTURE (BEAKER) (test No anaerobes isolated code = 1095) CBC with platelet count + automated [id number] 06:39:00 Test Item Value Reference Range Interpretation Comments WBC (test code = 6690-2) 9.6 3.5- 10.5 K/L RBC (test code = 789-8) 4.29 3.93- 5.22 M/L MCHC (test code = 786-4) 32.8 32.2- 35.5 GM/DL Hematocrit (test code = 4544-3) 40.0 % 34.1-44.9 MCV (test code = 787-2) 93.2 fL 79.4-94.8 MCH (test code = 785-6) 30.5 pg 25.6-32.2 RDW (test code = 788-0) 14.6 % 11.7-14.4 H Platelets (test code = 777-3) 142 150- 450 K/CU MM L MPV (test code = 77628-4) 10.7 fL 9.4-12.3 nRBC (test code = 413) 0 0- 0 /100 WBC % Neutros (test code = 429) 85 % % Lymphs (test code = 430) 9 % % Monos (test code = 431) 5 % % Eos (test code = 432) 0 % % Baso (test code = 437) 0 % # Neutros (test code = 670) 8.14 1.56- 6.13 K/L H # Lymphs (test code = 414) 0.83 1.18- 3.74 K/L L # Monos (test code = 415) 0.49 0.24- 0.36 K/L H # Eos (test code = 416) 0.01 0.04- 0.36 K/L L # Baso (test code = 417) 0.02 0.01- 0.08 K/L Immature Granulocytes-Relative 1 % 0-1 (test code = 2801) Lab Interpretation (test code = Abnormal 41183-7) [facility] W/PLT COUNT & AUTO [id number] 06:39:00 Test Item Value Reference Range Interpretation Comments WHITE BLOOD CELL COUNT (BEAKER) 9.6 K/ L 3.5-10.5 (test code = 775) RED BLOOD CELL COUNT (BEAKER) 4.29 M/ L 3.93-5.22 (test code = 761) HEMOGLOBIN (BEAKER) (test code = 13.1 GM/DL 11.2-15.7 410) HEMATOCRIT (BEAKER) (test code = 40.0 % 34.1-44.9 411) MEAN CORPUSCULAR VOLUME (BEAKER) 93.2 fL 79.4-94.8 (test code = 753) MEAN CORPUSCULAR HEMOGLOBIN 30.5 pg 25.6-32.2 (BEAKER) (test code = 751) MEAN CORPUSCULAR HEMOGLOBIN CONC 32.8 GM/DL 32.2-35.5 (BEAKER) (test code = 752) RED CELL DISTRIBUTION WIDTH 14.6 % 11.7-14.4 H (BEAKER) (test code = 412) PLATELET COUNT (BEAKER) (test 142 K/CU MM 150-450 L code = 756) MEAN PLATELET VOLUME (BEAKER) 10.7 fL 9.4-12.3 (test code = 754) NUCLEATED RED BLOOD CELLS 0 /100 WBC 0-0 (BEAKER) (test code = 413) NEUTROPHILS RELATIVE PERCENT 85 % (BEAKER) (test code = 429) LYMPHOCYTES RELATIVE PERCENT 9 % (BEAKER) (test code = 430) MONOCYTES RELATIVE PERCENT 5 % (BEAKER) (test code = 431) EOSINOPHILS RELATIVE PERCENT 0 % (BEAKER) (test code = 432) BASOPHILS RELATIVE PERCENT 0 % (BEAKER) (test code = 437) NEUTROPHILS ABSOLUTE COUNT 8.14 K/ L 1.56-6.13 H (BEAKER) (test code = 670) LYMPHOCYTES ABSOLUTE COUNT 0.83 K/ L 1.18-3.74 L (BEAKER) (test code = 414) MONOCYTES ABSOLUTE COUNT (BEAKER) 0.49 K/ L 0.24-0.36 H (test code = 415) EOSINOPHILS ABSOLUTE COUNT 0.01 K/ L 0.04-0.36 L (BEAKER) (test code = 416) BASOPHILS ABSOLUTE COUNT (BEAKER) 0.02 K/ L 0.01-0.08 (test code = 417) IMMATURE GRANULOCYTES-RELATIVE 1 % 0-1 PERCENT (BEAKER) (test code = 2801) Comprehensive metabolic [id number] 06:17:00 Test Item Value Reference Range Interpretation Comments Protein, Total (test 5.5 6.0- 8.3 gm/dL L Speci men slightly code = 2885-2) hemolyzed Albumin (test code = 3.3 g/dL 3.5-5 L Specime n slightly 45560-9) hemolyzed Alkaline Phosphatase 79 U/L 40-150 (test code = 6768-6) Total Bilirubin (test 0.4 mg/dL 0.2-1.2 Specim en slightly code = 1975-2) hemolyzed Sodium (test code = 139 meq/L 278-223 5734-2) Potassium (test code = 4.2 meq/L 3.5-5.1 Speci men slightly 2823-3) hemolyzed Chloride (test code = 106 meq/L 98-107 5-0) CO2 (test code = 25 meq/L 22-29 2027-9) BUN (test code = 14 mg/dL 7-21 3094-0) Creatinine (test code 0.80 mg/dL 0.57-1.25 Specim en slightly = 2160-0) hemolyzed Glucose (test code = 172 mg/dL 70-105 H 2345-7) Calcium (test code = 8.4 mg/dL 8.4-10.2 36894-9) AST (test code = 23 U/L 5-34 Specimen sl ightly 1920-8) hemolyzed ALT (test code = 23 U/L 6-55 Specimen sl ightly 1742-6) hemolyzed EGFR (test code = 69 mL/min/1.73 [place] [address]-7) NOT ACCURATE CREATININE CLEARANCE IN PREDICTING GLOMERULAR FILTRATION RATE . ESTIMATED GFR I S NOT APPLICABLE FOR DIALYSIS PATIENTS. ANGELA (test code = ANGELA) Public Health Epidemiologist ID - EVELIA Weiss Lab Interpretation Abnormal (test code = 24613-9) [facility] [id number] 06:17:00 Test Item Value Reference Range Interpretation Comments TOTAL PROTEIN 5.5 gm/dL 6.0-8.3 L Specimen sligh tly (BEAKER) (test code = hemoly zed 770) ALBUMIN (BEAKER) 3.3 g/dL 3.5-5.0 L Specimen sl ightly (test code = 1145) hemolyzed ALKALINE PHOSPHATASE 79 U/L 40-150 (BEAKER) (test code = 346) BILIRUBIN TOTAL 0.4 mg/dL 0.2-1.2 Specimen sli ghtly (BEAKER) (test code = hemoly zed 377) SODIUM (BEAKER) (test 139 meq/L 136-145 code = 381) POTASSIUM (BEAKER) 4.2 meq/L 3.5-5.1 Specimen slightly (test code = 379) hemolyzed CHLORIDE (BEAKER) 106 meq/L 98-107 (test code = 382) CO2 (BEAKER) (test 25 meq/L 22-29 code = 355) BLOOD UREA NITROGEN 14 mg/dL 7-21 (BEAKER) (test code = 354) CREATININE (BEAKER) 0.80 mg/dL 0.57-1.25 Specimen slightly (test code = 358) hemolyzed GLUCOSE RANDOM 172 mg/dL 70-105 H (BEAKER) (test code = 652) CALCIUM (BEAKER) 8.4 mg/dL 8.4-10.2 (test code = 697) AST (SGOT) (BEAKER) 23 U/L 5-34 Specimen slightly (test code = 353) hemolyzed ALT (SGPT) (BEAKER) 23 U/L 6-55 Specimen slightly (test code = 347) hemolyzed EGFR (BEAKER) (test 69 mL/min/1.73 ESTIMA JENNY GFR IS code = 1092) sq m NOT ACCURATE CREATININE CLEARANCE IN PREDICTING GLOMERULAR FILTRATION RATE . ESTIMATED GFR I S NOT APPLICABLE FOR DIALYSIS PATIEN TS. Public Health Epidemiologist ID - EVELIA [facility] [id number] 05:24:00 Test Item Value Reference Range Interpretation Comments TOTAL PROTEIN 4.8 gm/dL 6.0-8.3 L (BEAKER) (test code = 770) ALBUMIN (BEAKER) 2.9 g/dL 3.5-5.0 L (test code = 1145) ALKALINE PHOSPHATASE 59 U/L 40-150 (BEAKER) (test code = 346) BILIRUBIN TOTAL 0.4 mg/dL 0.2-1.2 (BEAKER) (test code = 377) SODIUM (BEAKER) (test 141 meq/L 136-145 code = 381) POTASSIUM (BEAKER) 3.8 meq/L 3.5-5.1 (test code = 379) CHLORIDE (BEAKER) 106 meq/L 98-107 (test code = 382) CO2 (BEAKER) (test 29 meq/L 22-29 code = 355) BLOOD UREA NITROGEN 12 mg/dL 7-21 (BEAKER) (test code = 354) CREATININE (BEAKER) 0.73 mg/dL 0.57-1.25 (test code = 358) GLUCOSE RANDOM 183 mg/dL 70-105 H (BEAKER) (test code = 652) CALCIUM (BEAKER) 7.8 mg/dL 8.4-10.2 L (test code = 697) AST (SGOT) (BEAKER) 21 U/L 5-34 (test code = 353) ALT (SGPT) (BEAKER) 20 U/L 6-55 (test code = 347) EGFR (BEAKER) (test 77 mL/min/1.73 ESTIMA JENNY GFR IS code = 1092) sq m NOT ACCURATE CREATININE CLEARANCE IN PREDICTING GLOMERULAR FILTRATION RATE . ESTIMATED GFR I S NOT APPLICABLE FOR DIALYSIS PATIEN TS. Public Health Epidemiologist ID - EDASIWOUND CULTURE + GRAM [id number] 10:29:00 Test Item Value Reference Range Interpretation Comments CULTURE (BEAKER) (test A 2+ Ca ndida code = 1095) albicans CULTURE (BEAKER) (test KLEBSIELLA A 2+ Kl ebsiella code = 1095) OXYTOCA oxytoca Amikacin (test code = S 1) Ampicillin + Sulbactam S (test code = 6) Aztreonam (test code = S 32) Cefepime (test code = S 51) Cefoxitin (test code = S 68) Ceftazidime (test code S = 27) Ceftriaxone (test code S = 52) Ertapenem (test code = S 38) Gentamicin (test code S = 18) Levofloxacin (test S code = 22) Meropenem (test code = S 34) Nitrofurantoin (test S code = 23) Tetracycline (test S code = 2) Tobramycin (test code S = 25) Trimethoprim + S Sulfamethoxazole (test code = 47) CULTURE (BEAKER) (test CITROBACTER A 2+ Ci trobacter code = 1095) FREUNDII freundii Amikacin (test code = S 1) Aztreonam (test code = S 32) Cefepime (test code = S 51) Cefoxitin (test code = R 68) Ceftazidime (test code S = 27) Ceftriaxone (test code S = 52) Ertapenem (test code = S 38) Gentamicin (test code S = 18) Levofloxacin (test S code = 22) Meropenem (test code = S 34) Nitrofurantoin (test S code = 23) Tetracycline (test S code = 2) Tobramycin (test code S = 25) Trimethoprim + S Sulfamethoxazole (test code = 47) GRAM STAIN RESULT 4+ WBCs (BEAKER) (test code = 1123) GRAM STAIN RESULT <1+ budding yeast (BEAKER) (test code = 372971) CBC W/PLT COUNT & AUTO [id number] 05:33:00 Test Item Value Reference Range Interpretation Comments WHITE BLOOD CELL COUNT (BEAKER) 10.0 K/ L 3.5-10.5 (test code = 775) RED BLOOD CELL COUNT (BEAKER) 4.48 M/ L 3.93-5.22 (test code = 761) HEMOGLOBIN (BEAKER) (test code = 13.4 GM/DL 11.2-15.7 410) HEMATOCRIT (BEAKER) (test code = 41.8 % 34.1-44.9 411) MEAN CORPUSCULAR VOLUME (BEAKER) 93.3 fL 79.4-94.8 (test code = 753) MEAN CORPUSCULAR HEMOGLOBIN 29.9 pg 25.6-32.2 (BEAKER) (test code = 751) MEAN CORPUSCULAR HEMOGLOBIN CONC 32.1 GM/DL 32.2-35.5 L (BEAKER) (test code = 752) RED CELL DISTRIBUTION WIDTH 14.7 % 11.7-14.4 H (BEAKER) (test code = 412) PLATELET COUNT (BEAKER) (test 112 K/CU MM 150-450 L code = 756) MEAN PLATELET VOLUME (BEAKER) 10.4 fL 9.4-12.3 (test code = 754) NUCLEATED RED BLOOD CELLS 0 /100 WBC 0-0 (BEAKER) (test code = 413) NEUTROPHILS RELATIVE PERCENT 81 % (BEAKER) (test code = 429) LYMPHOCYTES RELATIVE PERCENT 10 % (BEAKER) (test code = 430) MONOCYTES RELATIVE PERCENT 7 % (BEAKER) (test code = 431) EOSINOPHILS RELATIVE PERCENT 2 % (BEAKER) (test code = 432) BASOPHILS RELATIVE PERCENT 0 % (BEAKER) (test code = 437) NEUTROPHILS ABSOLUTE COUNT 8.02 K/ L 1.56-6.13 H (BEAKER) (test code = 670) LYMPHOCYTES ABSOLUTE COUNT 1.00 K/ L 1.18-3.74 L (BEAKER) (test code = 414) MONOCYTES ABSOLUTE COUNT (BEAKER) 0.69 K/ L 0.24-0.36 H (test code = 415) EOSINOPHILS ABSOLUTE COUNT 0.15 K/ L 0.04-0.36 (BEAKER) (test code = 416) BASOPHILS ABSOLUTE COUNT (BEAKER) 0.02 K/ L 0.01-0.08 (test code = 417) IMMATURE GRANULOCYTES-RELATIVE 1 % 0-1 PERCENT (BEAKER) (test code = 2801) COMPREHENSIVE METABOLIC [id number] 05:08:00 Test Item Value Reference Range Interpretation Comments TOTAL PROTEIN 4.9 gm/dL 6.0-8.3 L (BEAKER) (test code = 770) ALBUMIN (BEAKER) 3.0 g/dL 3.5-5.0 L (test code = 1145) ALKALINE PHOSPHATASE 53 U/L 40-150 (BEAKER) (test code = 346) BILIRUBIN TOTAL 0.7 mg/dL 0.2-1.2 (BEAKER) (test code = 377) SODIUM (BEAKER) (test 141 meq/L 136-145 code = 381) POTASSIUM (BEAKER) 3.8 meq/L 3.5-5.1 (test code = 379) CHLORIDE (BEAKER) 106 meq/L 98-107 (test code = 382) CO2 (BEAKER) (test 29 meq/L 22-29 code = 355) BLOOD UREA NITROGEN 13 mg/dL 7-21 (BEAKER) (test code = 354) CREATININE (BEAKER) 0.70 mg/dL 0.57-1.25 (test code = 358) GLUCOSE RANDOM 104 mg/dL 70-105 (BEAKER) (test code = 652) CALCIUM (BEAKER) 8.2 mg/dL 8.4-10.2 L (test code = 697) AST (SGOT) (BEAKER) 22 U/L 5-34 (test code = 353) ALT (SGPT) (BEAKER) 23 U/L 6-55 (test code = 347) EGFR (BEAKER) (test 81 mL/min/1.73 ESTIMA JENNY GFR IS code = 1092) sq m NOT ACCURATE CREATININE CLEARANCE IN PREDICTING GLOMERULAR FILTRATION RATE . ESTIMATED GFR I S NOT APPLICABLE FOR DIALYSIS PATIEN TS. Public Health Epidemiologist ID - EDASISpecimen slightly ictericCOMPREHENSIVE METABOLIC PANEL 2020-04-02 06:05:00 Test Item Value Reference Range Interpretation Comments TOTAL PROTEIN 4.3 gm/dL 6.0-8.3 L (BEAKER) (test code = 770) ALBUMIN (BEAKER) 2.7 g/dL 3.5-5.0 L (test code = 1145) ALKALINE PHOSPHATASE 44 U/L 40-150 (BEAKER) (test code = 346) BILIRUBIN TOTAL 0.7 mg/dL 0.2-1.2 (BEAKER) (test code = 377) SODIUM (BEAKER) (test 138 meq/L 136-145 code = 381) POTASSIUM (BEAKER) 3.6 meq/L 3.5-5.1 (test code = 379) CHLORIDE (BEAKER) 105 meq/L 98-107 (test code = 382) CO2 (BEAKER) (test 25 meq/L 22-29 code = 355) BLOOD UREA NITROGEN 18 mg/dL 7-21 (BEAKER) (test code = 354) CREATININE (BEAKER) 0.69 mg/dL 0.57-1.25 (test code = 358) GLUCOSE RANDOM 103 mg/dL 70-105 (BEAKER) (test code = 652) CALCIUM (BEAKER) 7.7 mg/dL 8.4-10.2 L (test code = 697) AST (SGOT) (BEAKER) 21 U/L 5-34 (test code = 353) ALT (SGPT) (BEAKER) 22 U/L 6-55 (test code = 347) EGFR (BEAKER) (test 82 mL/min/1.73 ESTIMA JENNY GFR IS code = 1092) sq m NOT ACCURATE CREATININE CLEARANCE IN PREDICTING GLOMERULAR FILTRATION RATE . ESTIMATED GFR I S NOT APPLICABLE FOR DIALYSIS PATIEN TS. Public Health Epidemiologist ID - PIAYA LSpecimen slightly ictericCBC W/PLT COUNT & AUTO [id number] 05:03:00 Test Item Value Reference Range Interpretation Comments WHITE BLOOD CELL COUNT (BEAKER) 13.0 K/ L 3.5-10.5 H (test code = 775) RED BLOOD CELL COUNT (BEAKER) 4.35 M/ L 3.93-5.22 (test code = 761) HEMOGLOBIN (BEAKER) (test code = 13.4 GM/DL 11.2-15.7 410) HEMATOCRIT (BEAKER) (test code = 41.5 % 34.1-44.9 411) MEAN CORPUSCULAR VOLUME (BEAKER) 95.4 fL 79.4-94.8 H (test code = 753) MEAN CORPUSCULAR HEMOGLOBIN 30.8 pg 25.6-32.2 (BEAKER) (test code = 751) MEAN CORPUSCULAR HEMOGLOBIN CONC 32.3 GM/DL 32.2-35.5 (BEAKER) (test code = 752) RED CELL DISTRIBUTION WIDTH 14.8 % 11.7-14.4 H (BEAKER) (test code = 412) PLATELET COUNT (BEAKER) (test 100 K/CU MM 150-450 L code = 756) MEAN PLATELET VOLUME (BEAKER) 10.5 fL 9.4-12.3 (test code = 754) NUCLEATED RED BLOOD CELLS 0 /100 WBC 0-0 (BEAKER) (test code = 413) NEUTROPHILS RELATIVE PERCENT 84 % (BEAKER) (test code = 429) LYMPHOCYTES RELATIVE PERCENT 8 % (BEAKER) (test code = 430) MONOCYTES RELATIVE PERCENT 6 % (BEAKER) (test code = 431) EOSINOPHILS RELATIVE PERCENT 1 % (BEAKER) (test code = 432) BASOPHILS RELATIVE PERCENT 0 % (BEAKER) (test code = 437) NEUTROPHILS ABSOLUTE COUNT 10.99 K/ L 1.56-6.13 H (BEAKER) (test code = 670) LYMPHOCYTES ABSOLUTE COUNT 0.99 K/ L 1.18-3.74 L (BEAKER) (test code = 414) MONOCYTES ABSOLUTE COUNT (BEAKER) 0.79 K/ L 0.24-0.36 H (test code = 415) EOSINOPHILS ABSOLUTE COUNT 0.15 K/ L 0.04-0.36 (BEAKER) (test code = 416) BASOPHILS ABSOLUTE COUNT (BEAKER) 0.02 K/ L 0.01-0.08 (test code = 417) IMMATURE GRANULOCYTES-RELATIVE 1 % 0-1 PERCENT (BEAKER) (test code = 2801) CT, DRAINAGE, [id number] 12:12:00Reason for exam:->Diverticulitis with increasing size of abscessFINAL REPORT PROCEDURE: CT, DRAINAGE, ABDOMINAL DOSE REDUCTION: The examination was performed according to departmental dose-optimization program which includes automated exposure control, adjustment of the mA and/or kV according to patient size and/or use of iterative reconstruction technique. HISTORY: Diverticulitis with increasing size of abscess Public Health Epidemiologist: Bam Wilson MD Moderate sedation: See nursing medication administration record regarding medication doses.Vital signswere monitored throughout the procedure by a nurse, and remained stable. Physician patient face to face intra-service time was 30 minutes. Local anesthesia: 5 cc 2% lidocaine TECHNIQUE: Informed written consent for the procedure was obtained. With the patient in the supine position, the area was scanned. The skin in the region of interest was prepped and draped in the usual sterile manner. Following local anesthesia a 19-gauge percutaneous entry needle was advanced into the collection using CT guidance. A 0.035 Stanley wire was advanced into the abscess. Tract was dilated using serial dilators. Subsequently a 8 [place] all-purpose drainage catheter was advanced into the collection using CT guidance. Approximately 15 cc of thick purulent fluid was obtained. Samples were submitted to microbiology for further testing. Catheter was anchored to the skin with 2- 0 Prolene suture and attached to a BAY bulb. Postprocedure CT evaluation of the area revealed near complete evacuation of the cavity, still with small amount of peritoneal gas anterior to where the fluid collection was. Patient tolerated theprocedure well and remained hemodynamically stable throughout. No significant blood loss IMPRESSION: Successful and uncomplicated CT-guided placement of a drainage catheter into the mid abdominal abscess. Signed: Bam Wilson Verified Date/Time: 04/01/2020 12:12:30 Reading Location: [address] Transitional Reading Room CT drainage [id number] 12:12:00Interface, External Ris In - 04/01/2020 12:14 PM CDTFINAL REPORT PROCEDURE: CT, DRAINAGE, ABDOMINAL DOSE REDUCTION: The examination was performed according to departmental dose-optimization program which includes automated exposure control, adjustment of the mA and/or kV according to patient size and/or use of iterative reconstruction technique. HISTORY: Diverticulitis with increasing size of abscess Public Health Epidemiologist: Bam Wilson MD Moderate sedation: See nursing medication administration record regarding medication doses.Vital signs were monitored throughout the procedure by a nurse, and remained stable. Physician patient face to face intra-service time was 30 minutes. Local ane sthesia: 5 cc 2% lidocaine TECHNIQUE: Informed written consent for the procedure was obtained. With the patient in the supine position, the area was scanned. The skin in the region of interest was prepped and draped in the usual sterile manner. Following local anesthesia a 19-gauge percutaneous entryneedle was advanced into the collection using CT guidance. A 0.035 Stanley wire was advanced into the abscess. Tract was dilated using serial dilators. Subsequently a 8 [place] all-purpose drainage catheter was advanced into the collection using CT guidance. Approximately 15 cc of thick purulent fluid was obtained. Samples were submitted to microbiology for further testing. Catheter was anchored to the skin with 2-0 Prolene suture and attached to a BAY bulb. Postprocedure CT evaluation of the area revealed near complete evacuation of the cavity, still with small amount of peritoneal gas anterior to where the fluid collection was. Patient tolerated the procedure well and remained hemodynamically stable throughout. No significant blood loss IMPRESSION: Successful and uncomplicated CT-guided placement of a drainage catheter into the mid abdominal abscess. Signed: Bam Wilson Verified Date/Time: 04/01/2020 12:12:30 Reading Location: [address] Transitional Reading Room Electronicallysigned by: BAM WILSON MD on 04/01/2020 12:12 [facility] W/PLT COUNT & AUTO [id number] 06:34:00 Test Item Value Reference Range Interpretation Comments WHITE BLOOD CELL COUNT (BEAKER) 13.1 K/ L 3.5-10.5 H (test code = 775) RED BLOOD CELL COUNT (BEAKER) 5.05 M/ L 3.93-5.22 (test code = 761) HEMOGLOBIN (BEAKER) (test code = 15.1 GM/DL 11.2-15.7 410) HEMATOCRIT (BEAKER) (test code = 48.1 % 34.1-44.9 H 411) MEAN CORPUSCULAR VOLUME (BEAKER) 95.2 fL 79.4-94.8 H (test code = 753) MEAN CORPUSCULAR HEMOGLOBIN 29.9 pg 25.6-32.2 (BEAKER) (test code = 751) MEAN CORPUSCULAR HEMOGLOBIN CONC 31.4 GM/DL 32.2-35.5 L (BEAKER) (test code = 752) RED CELL DISTRIBUTION WIDTH 15.0 % 11.7-14.4 H (BEAKER) (test code = 412) PLATELET COUNT (BEAKER) (test 115 K/CU MM 150-450 L code = 756) MEAN PLATELET VOLUME (BEAKER) 10.9 fL 9.4-12.3 (test code = 754) NUCLEATED RED BLOOD CELLS 0 /100 WBC 0-0 (BEAKER) (test code = 413) NEUTROPHILS RELATIVE PERCENT 78 % (BEAKER) (test code = 429) LYMPHOCYTES RELATIVE PERCENT 14 % (BEAKER) (test code = 430) MONOCYTES RELATIVE PERCENT 6 % (BEAKER) (test code = 431) EOSINOPHILS RELATIVE PERCENT 1 % (BEAKER) (test code = 432) BASOPHILS RELATIVE PERCENT 0 % (BEAKER) (test code = 437) NEUTROPHILS ABSOLUTE COUNT 10.20 K/ L 1.56-6.13 H (BEAKER) (test code = 670) LYMPHOCYTES ABSOLUTE COUNT 1.86 K/ L 1.18-3.74 (BEAKER) (test code = 414) MONOCYTES ABSOLUTE COUNT (BEAKER) 0.81 K/ L 0.24-0.36 H (test code = 415) EOSINOPHILS ABSOLUTE COUNT 0.15 K/ L 0.04-0.36 (BEAKER) (test code = 416) BASOPHILS ABSOLUTE COUNT (BEAKER) 0.03 K/ L 0.01-0.08 (test code = 417) IMMATURE GRANULOCYTES-RELATIVE 0 % 0-1 PERCENT (BEAKER) (test code = 2801) [id number] 06:33:00 Test Item Value Reference Range Interpretation Comments Magnesium (test code = 2.0 mg/dL 1.6-2.6 Speci men 92593-2) slightly hemolyzed ANGELA (test code = ANGELA) Public Health Epidemiologist ID - EVELIA M Lab Interpretation Normal (test code = 85844-8) [facility] Test Item Value Reference Range Interpretation Comments Phosphorus (test code 2.0 mg/dL 2.3-4.7 L Specim en = 2777-1) slightly hemolyzed ANGELA (test code = ANGELA) Public Health Epidemiologist ID - EVELIA M Lab Interpretation Abnormal (test code = 17218-7) [facility] 06:33:00 Test Item Value Reference Range Interpretation Comments MAGNESIUM (BEAKER) 2.0 mg/dL 1.6-2.6 Specimen slightly (test code = 627) hemolyzed Public Health Epidemiologist ID - EVELIA [id number] 06:33:00 Test Item Value Reference Range Interpretation Comments PHOSPHORUS (BEAKER) 2.0 mg/dL 2.3-4.7 L Specimen slightly (test code = 604) hemolyzed Public Health Epidemiologist ID - EVELIA MCOMPREHENSIVE METABOLIC [id number] 06:33:00 Test Item Value Reference Range Interpretation Comments TOTAL PROTEIN 4.7 gm/dL 6.0-8.3 L Specimen sligh tly (BEAKER) (test code = hemoly zed 770) ALBUMIN (BEAKER) 2.8 g/dL 3.5-5.0 L Specimen sl ightly (test code = 1145) hemolyzed ALKALINE PHOSPHATASE 53 U/L 40-150 (BEAKER) (test code = 346) BILIRUBIN TOTAL 0.8 mg/dL 0.2-1.2 Specimen sli ghtly (BEAKER) (test code = hemoly zed 377) SODIUM (BEAKER) (test 142 meq/L 136-145 code = 381) POTASSIUM (BEAKER) 4.1 meq/L 3.5-5.1 Specimen slightly (test code = 379) hemolyzed CHLORIDE (BEAKER) 109 meq/L 98-107 H (test code = 382) CO2 (BEAKER) (test 26 meq/L 22-29 code = 355) BLOOD UREA NITROGEN 23 mg/dL 7-21 H (BEAKER) (test code = 354) CREATININE (BEAKER) 0.85 mg/dL 0.57-1.25 Specimen slightly (test code = 358) hemolyzed GLUCOSE RANDOM 87 mg/dL 70-105 (BEAKER) (test code = 652) CALCIUM (BEAKER) 8.5 mg/dL 8.4-10.2 (test code = 697) AST (SGOT) (BEAKER) 21 U/L 5-34 Specimen slightly (test code = 353) hemolyzed ALT (SGPT) (BEAKER) 26 U/L 6-55 Specimen slightly (test code = 347) hemolyzed EGFR (BEAKER) (test 65 mL/min/1.73 ESTIMA JENNY GFR IS code = 1092) sq m NOT ACCURATE CREATININE CLEARANCE IN PREDICTING GLOMERULAR FILTRATION RATE . ESTIMATED GFR I S NOT APPLICABLE FOR DIALYSIS PATIEN TS. Public Health Epidemiologist ID - EVELIA MSpecimen slightly ictericCOMPREHENSIVE METABOLIC PANEL 2020-03-31 12:07:00 Test Item Value Reference Range Interpretation Comments TOTAL PROTEIN 5.0 gm/dL 6.0-8.3 L (BEAKER) (test code = 770) ALBUMIN (BEAKER) 3.1 g/dL 3.5-5.0 L (test code = 1145) ALKALINE PHOSPHATASE 59 U/L 40-150 (BEAKER) (test code = 346) BILIRUBIN TOTAL 0.7 mg/dL 0.2-1.2 (BEAKER) (test code = 377) SODIUM (BEAKER) (test 137 meq/L 136-145 code = 381) POTASSIUM (BEAKER) 3.7 meq/L 3.5-5.1 (test code = 379) CHLORIDE (BEAKER) 105 meq/L 98-107 (test code = 382) CO2 (BEAKER) (test 26 meq/L 22-29 code = 355) BLOOD UREA NITROGEN 21 mg/dL 7-21 (BEAKER) (test code = 354) CREATININE (BEAKER) 0.87 mg/dL 0.57-1.25 (test code = 358) GLUCOSE RANDOM 131 mg/dL 70-105 H (BEAKER) (test code = 652) CALCIUM (BEAKER) 8.4 mg/dL 8.4-10.2 (test code = 697) AST (SGOT) (BEAKER) 18 U/L 5-34 (test code = 353) ALT (SGPT) (BEAKER) 23 U/L 6-55 (test code = 347) EGFR (BEAKER) (test 63 mL/min/1.73 ESTIMA JENNY GFR IS code = 1092) sq m NOT ACCURATE CREATININE CLEARANCE IN PREDICTING GLOMERULAR FILTRATION RATE . ESTIMATED GFR I S NOT APPLICABLE FOR DIALYSIS PATIEN TS. Public Health Epidemiologist ID - MICHELL CSpecimen slightly [id number] 09:49:00 Test Item Value Reference Range Interpretation Comments MAGNESIUM (BEAKER) (test code = 2.1 mg/dL 1.6-2.6 627) Public Health Epidemiologist ID - MICHELL CLactic acid, [id number] 09:45:00 Test Item Value Reference Range Interpretation Comments Lactate, Venous (test code 1.05 mmol/L 0.5-2.2 = 2872) ANGELA (test code = ANGELA) Public Health Epidemiologist ID - MICHELL C Lab Interpretation (test Normal code = 59722-3) [facility], [id number] 09:45:00 Test Item Value Reference Range Interpretation Comments LACTATE BLOOD VENOUS (2) (BEAKER) 1.05 mmol/L 0.50-2.20 (test code = 2872) Public Health Epidemiologist ID - MICHELL [id number] 09:35:00 Test Item Value Reference Range Interpretation Comments Protime (test code = 13.5 11.9- 14.2 5902-2) seconds INR (test code = 1.06 <=5.90 6301-6) PTT (test code = 24.2 22.5- 36.0 17675-8) seconds ANGELA (test code = ANGELA) Effective 01/13/2019: PT Reference Range ChangeNew: 11.9-14.2 Previous: 11.7-14.7 RECOMMENDED COUMADIN/WARFARIN INR THERAPY RANGESSTANDARD DOSE: 2.0-3.0 Includes: PROPHYLAXIS for venous thrombosis, systemic embolization; TREATMENT for venous thrombosis and/or pulmonary embolus.HIGH RISK: Target INR is 2.5-3.5 for patients wiht mechanical heart valves. Lab Interpretation Normal (test code = 46838-5) [id number] 09:35:00 Test Item Value Reference Range Interpretation Comments PROTIME (BEAKER) (test code = 13.5 seconds 11.9-14.2 759) INR (BEAKER) (test code = 370) 1.06 <=5.90 PARTIAL THROMBOPLASTIN TIME 24.2 seconds 22.5-36.0 (BEAKER) (test code = 760) Effective 01/13/2019: PT Reference Range ChangeNew: 11.9-14.2 Previous: 11.7- 14.7RECOMMENDED COUMADIN/WARFARIN INR THERAPY RANGESSTANDARD DOSE: 2.0-3.0 Includes: PROPHYLAXIS for venous thrombosis, systemic embolization; TREATMENT for venous thrombosis and/or pulmonary embolus.HIGH RISK: Target INR is2.5-3.5 for patients wiht mechanical heart valves.CBC W/PLT COUNT & AUTO [id number] 09:26:00 Test Item Value Reference Range Interpretation Comments WHITE BLOOD CELL COUNT (BEAKER) 10.1 K/ L 3.5-10.5 (test code = 775) RED BLOOD CELL COUNT (BEAKER) 5.25 M/ L 3.93-5.22 H (test code = 761) HEMOGLOBIN (BEAKER) (test code = 15.8 GM/DL 11.2-15.7 H 410) HEMATOCRIT (BEAKER) (test code = 49.0 % 34.1-44.9 H 411) MEAN CORPUSCULAR VOLUME (BEAKER) 93.3 fL 79.4-94.8 (test code = 753) MEAN CORPUSCULAR HEMOGLOBIN 30.1 pg 25.6-32.2 (BEAKER) (test code = 751) MEAN CORPUSCULAR HEMOGLOBIN CONC 32.2 GM/DL 32.2-35.5 (BEAKER) (test code = 752) RED CELL DISTRIBUTION WIDTH 14.7 % 11.7-14.4 H (BEAKER) (test code = 412) PLATELET COUNT (BEAKER) (test 132 K/CU MM 150-450 L code = 756) MEAN PLATELET VOLUME (BEAKER) 10.6 fL 9.4-12.3 (test code = 754) NUCLEATED RED BLOOD CELLS 0 /100 WBC 0-0 (BEAKER) (test code = 413) NEUTROPHILS RELATIVE PERCENT 75 % (BEAKER) (test code = 429) LYMPHOCYTES RELATIVE PERCENT 17 % (BEAKER) (test code = 430) MONOCYTES RELATIVE PERCENT 7 % (BEAKER) (test code = 431) EOSINOPHILS RELATIVE PERCENT 1 % (BEAKER) (test code = 432) BASOPHILS RELATIVE PERCENT 0 % (BEAKER) (test code = 437) NEUTROPHILS ABSOLUTE COUNT 7.53 K/ L 1.56-6.13 H (BEAKER) (test code = 670) LYMPHOCYTES ABSOLUTE COUNT 1.72 K/ L 1.18-3.74 (BEAKER) (test code = 414) MONOCYTES ABSOLUTE COUNT (BEAKER) 0.68 K/ L 0.24-0.36 H (test code = 415) EOSINOPHILS ABSOLUTE COUNT 0.06 K/ L 0.04-0.36 (BEAKER) (test code = 416) BASOPHILS ABSOLUTE COUNT (BEAKER) 0.04 K/ L 0.01-0.08 (test code = 417) IMMATURE GRANULOCYTES-RELATIVE 0 % 0-1 PERCENT (BEAKER) (test code = 7381)
[2020-04-21 11:25] LABS: Absolute Lymphocytes (CBC) 0.3 K/uL (0.7-4.9); Basophils % 0.2 % (0-1.3); Hematocrit 43.3 % (36.0-45.0); Lymphocytes % 2.3 % (15.3-44.8); MPV 9.4 fL (7.6-11.3); Protime INR 0.97; RBC Red Blood Cell Count 4.84 M/uL (3.86-4.86)
[2020-04-21 11:39] LABS: Albumin 3.2 g/dL (3.4-5.0); Bilirubin Direct 0.2 mg/dL (0-0.2); Bilirubin Total 0.7 mg/dL (0.2-1.0); Potassium 3.9 mmol/L (3.5-5.1); Protein, Total 5.7 g/dL (6.4-8.2); Troponin (Emerg Dept Use Only) 0.04 ng/mL (0.0-0.045)
[2020-04-21 12:41] LABS: Urine Bacteria <20 /HPF (<20); Urine Culture Reflex Order REFLEXED; Urine RBC <5 /HPF (NONE SEEN); Urine Urothelial Cells <5 /HPF (NONE SEEN)
[2020-04-21 12:52] LABS: Blood Morphology Comment NOT SEEN (NOT SEEN); Platelet Estimate ADEQ
[2020-04-21 12:59] LABS: Urine Blood NEGATIVE (NEG); Urine Glucose NEGATIVE (NEG); Urine Protein NEGATIVE (NEG); Urine Specific Gravity 1.015 (1.005-1.030); Urine pH 5.5 (5.0-7.0)
--- NOTE | 2020-04-21 12:59 | RAD REPORT ---
EXAM DESCRIPTION: CT - Abdomen Pelvis W Contrast - 04/21/2020 12:44 pm CLINICAL HISTORY: Abdominal pain COMPARISON: March 31, 2020 TECHNIQUE: Computed axial tomography of the abdomen pelvis was obtained. 100 cc Isovue-300 was admin istered intravenously. Oral contrast was not requested which limits evaluation of bowel. All CT scans are performed using dose optimization technique as appropriate and may include automated exposure control or mA/KV adjustment according to patient size. FINDINGS: A right posterolateral hernia contains a portion of the liver. Splenic granulomata are present. Right kidney is absent. The adrenals and left kidney are unremarkable. Pancreas is unremarkable Postsurgical changes involve stomach. A 2.6 x 1.4 centimeter fluid collection is present within the central mesentery. It previously measur ed 3.9 x 3 centimeters Diverticula stem from the colon without evidence diverticulitis. Small left posteromedial diaphragmatic hernia contains fat. Diverticulum stems from the bladder IMPRESSION: 2.6 x 1.4 centimeter fluid collection within the central mesentery has decreased size. No free-air.
[2020-04-21] MEDS ORDERED: NA CHLORIDE 0.9% 500 ML ONE (14:31)
[2020-04-21] MEDS ORDERED: CIPROFLOXACIN 400mg IV 400 MG/200 ML BAG IV ONE (14:31)
[2020-04-21] MEDS ORDERED: METRONIDAZOLE 500mg IVPB 500 MG/100 ML BAG IV ONE (14:31)
--- NOTE | 2020-04-21 14:48 | EDPHYS ---
Physician Documentation [facility] Name: Radha Ocampo Age: 79 yrs Sex: Female : 1940 Arrival Date: 04/21/2020 Time: 10:12 Bed 13 Private MD: Toby Parks V ED Physician New Shen HPI: 04/21 14:18 This 79 yrs old Female presents to ER via Wheelchair with complaints of kb General Weakness. 14:18 The patient presents with abdominal pain that is diffuse. Onset: The symptoms/episode kb began/occurred 1 week(s) ago. The symptoms do not radiate. Associated signs and symptoms: Pertinent positives: weakness, fatigue. The symptoms are described as constant. Modifying factors: The symptoms are alleviated by nothing, the symptoms are aggravated by nothing. Severity of pain: At its worst the pain was moderate in the emergency department the pain is unchanged. The patient has not experienced similar symptoms in the past. The patient has been recently seen by a physician:. Pt reports she was transferred to [facility] 2 weeks ago due to a perforated diverticulitis with abscess. Was there for a week, then discharged. STates she has had abd soreness since then and progressive weakness and fatigue. States she doesn't have the energy to do anything. Historical: - Allergies: 10:23 meperidine HCl (rash); ss 10:23 Morphine; ss - PMHx: 10:23 ADD/ADHD; Hyperlipidemia; Hypothyroidism; Myocardial infarction; renal cell carcinoma; ss stage 3 kidney failure; Depression; DM chemical induced; Hypertension; Giant Cell Arthritis; - Immunization history:: Adult Immunizations up to date. - Social history:: Smoking status: Patient denies any tobacco usage or history of. ROS: 14:17 Cardiovascular: Negative for chest pain, palpitations, and edema, Respiratory: Negative kb for shortness of breath, cough, wheezing, and pleuritic chest pain, Back: Negative for injury and pain, MS/Extremity: Negative for injury and deformity, Skin: Negative for injury, rash, and discoloration. 14:17 Constitutional: Positive for fatigue, Negative for body aches, chills, fever, malaise, poor PO intake, weight loss. 14:17 Abdomen/GI: Positive for abdominal pain, Negative for nausea, vomiting, and diarrhea. 14:20 Neuro: Positive for weakness. kb Exam: 14:17 Constitutional: This is a well developed, well nourished patient who is awake, alert, kb and in no acute distress. Head/Face: Normocephalic, atraumatic. Chest/axilla: Normal chest wall appearance and motion. Nontender with no deformity. No lesions are appreciated. Cardiovascular: Regular rate and rhythm with a normal S1 and S2. No gallops, murmurs, or rubs. Normal PMI, no JVD. No pulse deficits. Respiratory: Lungs have equal breath sounds bilaterally, clear to auscultation and percussion. No rales, rhonchi or wheezes noted. No increased work of breathing, no retractions or nasal flaring. Abdomen/GI: Soft, non-tender, with normal bowel sounds. No distension or tympany. No guarding or rebound. No evidence of tenderness throughout. Back: No spinal tenderness. No costovertebral tenderness. Full range of motion. Skin: Warm, dry with normal turgor. Normal color with no rashes, no lesions, and no evidence of cellulitis. MS/ Extremity: Pulses equal, no cyanosis. Neurovascular intact. Full, normal range of motion. Neuro: Awake and alert, GCS 15, oriented to person, place, time, and situation. Cranial nerves II-XII grossly intact. Motor strength 5/5 in all extremities. Sensory grossly intact. Cerebellar exam normal. Normal gait. 14:57 ECG was reviewed by the Attending Physician. kb Vital Signs: 10:19 BP 157 / 56; Pulse 60; Resp 18; Temp 97.4; Pulse Ox 96% on R/A; Height 5 ft. 0 in. ss (152.40 cm); Pain 0/10; 11:14 BP 158 / 58; Pulse 81; Resp 27; Pulse Ox 98% ; bp 12:15 BP 150 / 55; Pulse 68; Resp 16; Pulse Ox 98% ; ss 13:40 BP 181 / 67; Pulse 68; Resp 11; Pulse Ox 94% ; bp 14:30 BP 184 / 60; Pulse 64; Resp 9; Pulse Ox 97% ; bp 15:00 BP 185 / 60; Pulse 80; Resp 15; Pulse Ox 100% ; bp 16:00 BP 167 / 64; Pulse 60; Resp 11; Pulse Ox 97% ; bp MDM: 10:25 Patient medically screened. kb 14:05 Data reviewed: vital signs, nurses notes. Data interpreted: Pulse oximetry: on room air kb is 94 %. Interpretation: normal. Counseling: I had a detailed discussion with the patient and/or guardian regarding: the historical points, exam findings, and any diagnostic results supporting the discharge/admit diagnosis, lab results, radiology results, the need to transfer to another facility, continuity of care. ED course: Dr Liang (general surgeon) accepts pt for consult. 14:16 ED course: Dr Lizama (hospitalist at [facility]) accepts pt for transfer. kb 04/21 10:49 Order name: Basic Metabolic Panel; Complete Time: 11:42 kb 04/21 10:49 Order name: CBC with Diff; Complete Time: 12:55 kb 04/21 10:49 Order name: LFT's; Complete Time: 11:42 kb 04/21 10:49 Order name: Magnesium; Complete Time: 11:42 kb 04/21 10:49 Order name: NT PRO-BNP; Complete Time: 11:42 kb 04/21 10:49 Order name: PT-INR; Complete Time: 11:32 kb 04/21 10:49 Order name: Troponin (emerg Dept Use Only); Complete Time: 11:42 kb 04/21 12:10 Order name: CT Abd/Pelvis - IV Contrast Only; Complete Time: 13:01 kb 04/21 12:16 Order name: Urine Microscopic Only; Complete Time: 12:44 ss 04/21 12:18 Order name: Urine Dipstick--Ancillary (enter results); Complete Time: 13:00 eb 04/21 12:43 Order name: Urine Culture EDPA 04/21 12:52 Order name: Manual Differential; Complete Time: 12:55 EDMS 04/21 10:49 Order name: EKG; Complete Time: 10:50 kb 04/21 10:49 Order name: Cardiac monitoring; Complete Time: 11:51 kb 04/21 10:49 Order name: EKG - Nurse/Tech; Complete Time: 11:51 kb 04/21 10:49 Order name: IV Saline Lock; Complete Time: 11:51 kb 04/21 10:49 Order name: Labs collected and sent; Complete Time: 11:51 kb 04/21 10:49 Order name: O2 Per Protocol; Complete Time: 10:50 kb 04/21 10:49 Order name: O2 Sat Monitoring; Complete Time: 10:50 kb 04/21 12:10 Order name: Urine Dipstick-Ancillary (obtain specimen); Complete Time: 12:16 kb EC:57 Rate is 65 beats/min. Rhythm is regular. QRS [place] is Normal. CO interval is normal at kb 158 msec. QRS interval is normal at 84 msec. QT interval is normal at 404 msec. Administered Medications: 14:30 Drug: NS 0.9% 500 ml Route: IV; Rate: bolus; Site: right antecubital; bp 16:21 Follow up: IV Status: Completed infusion; IV Intake: 500ml bp 14:30 Drug: Flagyl 500 mg Volume: 100 ml; Route: IVPB; Rate: 200 ml/hr; Infused Over: 30 bp mins; Site: right antecubital; 16:22 Follow up: IV Status: Completed infusion; IV Intake: 100ml bp 14:30 Drug: Cipro 400 mg Volume: 200 ml; Route: IVPB; Infused Over: 60 mins; Site: right bp antecubital; 16:22 Follow up: IV Status: Completed infusion; IV Intake: 200ml bp Disposition: 04/22 11:10 Co-signature as Attending Physician, New Shen MD I agree with the assessment and cheri plan of care. Disposition: 04/21/20 14:16 Transfer ordered to [facility]. Diagnosis are Abscess in centeral mesentary, Elevated white blood cell count. - Reason for transfer: Higher level of care. - Accepting physician is Alda. - Condition is Stable. - Problem is new. - Symptoms are unchanged. Signatures: Dispatcher [employer] Azra Leos, PHYSICS AND ASTRONOMY PROFESSOR-C PHYSICS AND ASTRONOMY PROFESSOR-Ckb New Shen MD MD cha Smirch, Shelby, RN RN ss Peltier, Brian, RN RN bp Corrections: (The following items were deleted from the chart) 04/21 14:20 14:17 Cardiovascular: Negative for chest pain, palpitations, and edema, Respiratory: kb Negative for shortness of breath, cough, wheezing, and pleuritic chest pain, Back: Negative for injury and pain, MS/Extremity: Negative for injury and deformity, Skin: Negative for injury, rash, and discoloration, Neuro: Negative for headache, weakness, numbness, tingling, and seizure, kb 16:21 14:16 04/21/2020 14:16 Transfer ordered to [facility]. bp Diagnosis is Abscess in centeral mesentary; Elevated white blood cell count. Reason for transfer: Higher level of care. Accepting physician is Alda. Condition is Stable. Problem is new. Symptoms are unchanged. kb
--- NOTE | 2020-04-21 14:48 | ER ---
Nurse's Notes [facility] Name: Radha Ocampo Age: 79 yrs Sex: Female : 1940 Arrival Date: 04/21/2020 Time: 10:12 Bed 13 Private MD: Toby Parks V Diagnosis: Abscess in centeral mesentary;Elevated white blood cell count Presentation: 04/21 10:19 Chief complaint: Patient states: "I was here 3 weeks ago. I came in with a perforated ss diverticula. I was here for 6 days and doing well so they sent me home. 3-4 hours later I was back in the ER and they saw that I had an abscess there, so they transferred me to [facility] and I was there for about a week. I've been home for a week, but over the past few days I've been getting so weak. I'm just exhausted.". Coronavirus screen: Client denies travel out of the [place] in the last 14 days. Ebola Screen: Patient denies exposure to infectious person. Patient denies travel to an Ebola-affected area in the 21 days before illness onset. Initial Sepsis Screen: Does the patient meet any 2 criteria? No. Patient's initial sepsis screen is negative. Does the patient have a suspected source of infection? No. Patient's initial sepsis screen is negative. Risk Assessment: Do you want to hurt yourself or someone else? Patient reports no desire to harm self or others. Onset of symptoms was March 18, 2020. 10:19 Method Of Arrival: Wheelchair 10:19 Acuity: CIARA 3 ss Triage Assessment: 10:30 General: Appears distressed, comfortable, Behavior is cooperative, appropriate for age, bp drowsy. Pain: Denies pain. EENT: No deficits noted. Neuro: Reports FATIGUE. Cardiovascular: Reports fatigue. Respiratory: No deficits noted. GI: No signs and/or symptoms were reported involving the gastrointestinal system. : No signs and/or symptoms were reported regarding the genitourinary system. Derm: No deficits noted. Musculoskeletal: No deficits noted. Historical: - Allergies: 10:23 meperidine HCl (rash); ss 10:23 Morphine; ss - PMHx: 10:23 ADD/ADHD; Hyperlipidemia; Hypothyroidism; Myocardial infarction; renal cell carcinoma; ss stage 3 kidney failure; Depression; DM chemical induced; Hypertension; Giant Cell Arthritis; - Immunization history:: Adult Immunizations up to date. - Social history:: Smoking status: Patient denies any tobacco usage or history of. Screenin:30 Abuse screen: Denies threats or abuse. Denies injuries from another. Nutritional bp screening: No deficits noted. Tuberculosis screening: No symptoms or risk factors identified. Fall Risk None identified. Assessment: 10:30 General: SEE TRIAGE NOTE. bp 11:15 Reassessment: ALL CURRENT ORDERS COMPLETED, RESULTS PENDING. VS STABLE ON MONITOR. bp 12:30 Reassessment: PT RETURNED FROM CT. VS STABLE ON MONITOR. bp 13:40 Reassessment: PER RADIOLOGIST, ABSCESS NOTED ON CT. ADMIT PENDING FOR CONTINUITY OF bp CARE. 14:00 Reassessment: TRANSFER IN PROCESS. VS STABLE ON MONITOR. bp 15:10 Reassessment: REPORT TO RAYNA HYLTON FOR [facility] RM 1550. TRANSPORT PENDING. bp 16:08 Reassessment: [place] [id number] [facility] AT B/S FOR TRANSPORT. bp Vital Signs: 10:19 BP 157 / 56; Pulse 60; Resp 18; Temp 97.4; Pulse Ox 96% on R/A; Height 5 ft. 0 in. ss (152.40 cm); Pain 0/10; 11:14 BP 158 / 58; Pulse 81; Resp 27; Pulse Ox 98% ; bp 12:15 BP 150 / 55; Pulse 68; Resp 16; Pulse Ox 98% ; ss 13:40 BP 181 / 67; Pulse 68; Resp 11; Pulse Ox 94% ; bp 14:30 BP 184 / 60; Pulse 64; Resp 9; Pulse Ox 97% ; bp 15:00 BP 185 / 60; Pulse 80; Resp 15; Pulse Ox 100% ; bp 16:00 BP 167 / 64; Pulse 60; Resp 11; Pulse Ox 97% ; bp ED Course: 10:12 Patient arrived in ED. ag5 10:12 Toby Parks MD is Private Physician. ag5 10:22 Triage completed. ss 10:23 Arm band placed on right wrist. ss 10:24 [facility]. kb 10:24 New Shen MD is Attending Physician. kb 10:30 Patient has correct armband on for positive identification. Bed in low position. Call bp light in reach. Side rails up X2. 10:32 Jose Burton, RN is Primary Nurse. bp 11:10 Inserted saline lock: 20 gauge in left antecubital area, using aseptic technique. Blood bp collected. 12:44 CT Abd/Pelvis - IV Contrast Only In Process Unspecified. EDMS 13:21 Urine Culture Sent. ss 13:38 initiated a transfer with Lilian Saleem Rn from the [facility]. eb 14:[address] Gomes the general surgeon buttonhole tacker for [facility] with Azra correa for patient transfer consultation. 14:[address] Lizama the hospitalist buttonhole tacker for [facility] with Azra for eb patient transfer consultation. 14:46 administrative approval given by Lilian Saleem Rn/ patient has been accepted to [facility] bed 1550/ Dr. Lizama has accepted the patient in transfer/ report to be called to [phone]. 16:10 No provider procedures requiring assistance completed. Patient transferred, IV remains bp in place. Administered Medications: 14:30 Drug: NS 0.9% 500 ml Route: IV; Rate: bolus; Site: right antecubital; bp 16:21 Follow up: IV Status: Completed infusion; IV Intake: 500ml bp 14:30 Drug: Flagyl 500 mg Volume: 100 ml; Route: IVPB; Rate: 200 ml/hr; Infused Over: 30 bp mins; Site: right antecubital; 16:22 Follow up: IV Status: Completed infusion; IV Intake: 100ml bp 14:30 Drug: Cipro 400 mg Volume: 200 ml; Route: IVPB; Infused Over: 60 mins; Site: right bp antecubital; 16:22 Follow up: IV Status: Completed infusion; IV Intake: 200ml bp Intake: 16:21 IV: 500ml; Total: 500ml. bp 16:22 IV: 100ml; Total: 600ml. bp 16:22 IV: 200ml; Total: 800ml. bp Outcome: 14:16 ER care complete, transfer ordered by MD. lee 16:09 Transferred by ground EMS to [facility], Transfer form completed. bp 16:09 Condition: stable 16:09 Instructed on the need for transfer. 16:21 Patient left the ED. bp Signatures: Dispatcher [employer] EDAzra Ramos, JUSTUS LOMBARDO-Kavitha Morton RN RN ss Peltier, Brian, RN RN Yudith Lang Ajare ag5
--- NOTE | 2020-04-22 09:02 | EKG ---
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
[2020-04-23 00:22] VITALS: TEMP 97.4
[2020-04-23 00:29] VITALS: BP 167/64; O2SAT 97
== END 2020-04-21 16:21 | disposition short-term general hospital (02) ==
LOC: ER 10:09
DX: K65.1 Peritoneal abscess (principal); D72.829 Elevated white blood cell count, unspecified; I12.9 Hypertensive chronic kidney disease with stage 1 through stage 4 chronic kidney disease, or unspecified chronic kidney disease; N18.3 Chronic kidney disease, stage 3 (moderate); Z85.53 Personal history of malignant neoplasm of renal pelvis; Z88.5 Allergy status to narcotic agent; Z88.8 Allergy status to other drugs, medicaments and biological substances
CPT/HCPCS: 96365; 96368; 93005; 87088; 85025; 87086; 80048; 36415; 83735; 85610; 80076; 84484; 83880; 74177; 99285; 96366; Q9967; J7040; J0744; 81003; 81015

== ENCOUNTER 2020-05-02 11:43 | Emergency (ER) | payer OTHER ==
--- OUTSIDE RECORDS SUMMARY | 2020-05-02 11:46 | XMS REPORT | Clinical Summary ---
:1940 Author Organization [facility] Address [address] [place] [address] Care Team Providers Name Role Phone Unavailable Primary Care Provider Unavailable Allergies Active Allergy Reactions Severity Noted Date Comments Meperidine Other (See Comments) 03/31/2020 halluci nation Morphine Rash Low 03/31/2020 Medications Medication Sig Dispensed Refills Start End Date Status Date aspirin 81 MG EC Take 1 tablet by 0 Active tablet mouth daily. levothyroxine Take 1 tablet by 0 Active (SYNTHROID, mouth daily. 0 LEVOTHROID) 75 MCG tablet losartan (COZAAR) Take 1 tablet by 0 Active 100 MG tablet mouth daily. [address] 1 tablet 0 A ctive (NITROSTAT) 0.4 MG under the tongue SL tablet as needed. predniSONE Take 1 tablet by 0 Ac tive (DELTASONE) 20 MG mouth 2 (two) tablet times daily. cycloSPORINE Place 1 drop into 0 Active (RESTASIS) 0.05 % both eyes as ophthalmic needed. emulsion sertraline Take 1 tablet by 0 Ac tive (ZOLOFT) 100 MG mouth daily Noon 8 tablet time. alpha lipoic acid Take 1 tablet by 0 Active 600 mg Cap mouth daily. calcium Take 1 tablet by 0 Act ana carbonate-vitamin mouth daily. D3 (CALCIUM-VITAMIN D) 500 mg(1,250mg) -200 unit per tablet diltiazem Take 1 tablet by 0 Act ana (DILT-XR) 180 mg mouth nightly. 0 24 hr capsule furosemide (LASIX) Take 20 mg by 0 Active 20 MG tablet mouth as needed. 0 rosuvastatin Take 1 tablet (10 30 tablet 0 04/24/20 Active (CRESTOR) 10 MG mg total) by mouth 0 21 tablet daily. insulin glargine Inject 6 Units subcutaneously nightly Use as direc dominic 10 mL 0 Active (LANTUS) 100 2-5 units depending on blood sugar . 0 unit/mL injection amLODIPine Take 1 tablet (5 30 tablet 0 05/25/20 Ac tive (NORVASC) 5 MG mg total) by mouth 0 20 tablet daily for 30 days. gabapentin Take 1 capsule 30 capsule 0 04/24/20 Act ana (NEURONTIN) 100 MG (100 mg total) by 0 21 capsule mouth nightly. insulin lispro Inject 0-8 Units 10 mL 0 04/24/20 Active (HUMALOG) 100 subcutaneously 3 0 21 unit/mL injection (three) times daily before meals 3 u AC plus this sliding scale insulin. needles, insulin 1 box by 1 box 0 Act ana disposable Miscellaneous 0 (INSULIN PEN route 4 (four) NEEDLES) Ndle times daily before meals and nightly. atorvastatin Take 1 tablet by 0 04/24/20 Discontinued (LIPITOR) 80 MG mouth daily. 20 tablet cranberry fruit Take 1 tablet by 0 03/31/ 0 Discontinued (CRANBERRY) 450 mg mouth daily. 20 Tab pregabalin Take 1 tablet by 0 04/21/20 Di scontinued (LYRICA) 50 MG mouth daily. 20 capsule valACYclovir Take 1 tablet by 0 04/21/20 Discontinued (VALTREX) 500 MG mouth as needed. 20 tablet tocilizumab Inject 1 Dose 0 04/24/20 Disc ontinued (ACTEMRA) 162 subcutaneously 20 mg/0.9 mL Syrg every 7 days Friday. fluconazole Take 2 tablets 2 tablet 0 04/10/20 Exp ired (DIFLUCAN) 200 MG (400 mg total) by 0 20 tablet mouth daily for 4 days. levoFLOXacin Take 1 tablet (500 4 tablet 0 04/10/20 (LEVAQUIN) 500 MG mg total) by mouth 0 20 tablet daily for 4 days. metroNIDAZOLE Take 1 tablet (500 15 tablet 0 0 (FLAGYL) 500 MG mg total) by mouth 0 20 tablet every 8 (eight) hours for 5 days. insulin glargine Inject subcutaneously nightly Use as directed 0 04/24/20 Discontinued (LANTUS) 100 2-5 units depending on blood sugar . 20 unit/mL injection Active Problems Problem Noted Date Dehydration 04/24/2020 Elevated LFTs 04/24/2020 Steroid-induced hyperglycemia 04/24/2020 Meningioma 04/24/2020 Renal cell carcinoma of right kidney 04/21/2020 Fatigue 04/21/2020 Hypothyroidism 04/01/2020 Diabetes mellitus 04/01/2020 Hypertension 04/01/2020 Giant cell arteritis 04/01/2020 Diverticulitis of intestine with abscess 03/31/2020 Encounters Date Type Specialty Care Team Description 04/21/2020 - Hospital Encounter General Internal Lila Lizama ue, unspecified type; 04/24/2020 Medicine MD Yoanna Steroid-induced hyperglycemia; Tara Eagle, Diarrhea of presumed infectious origin; Murmur, cardiac ; Transaminitis; Brain mass; Uncontrolled hy pertension; Dehydration 04/21/2020 Orders Only General Internal Medicine 04/21/2020 Documentation Internal Shelton Lizama MD 04/02/2020 Travel 03/31/2020 - Hospital Encounter Oncology Lester, Diverticu litis of large intestine with abscess without bleeding; 04/05/2020 Lay Renetta, Essential hype rtension; CKD (chronic kidney disease) stage 2, GF R 60-89 ml/min; Cristinoreya, Dementia withou t behavioral disturbance, unspecified dementia type (HCC); Kiersten Hypothyroidism, unspecified type; MD Freida Giant cell arteritis syndrome (HCC); Anil Pearson Immunosuppre ssed status (HCC) MD Jos after 05/02/2019 Family History Medical History Relation Name Comments Cancer Brother Cancer Brother Cancer Brother Cancer Father Diabetes Mother Heart disease Mother Breast cancer Sister Cancer Sister Relation Name Status Comments Brother Brother Brother Alive Father Mother Sister Alive Social History Tobacco Use Types Packs/Day Years Used Date Never Smoker Smokeless Tobacco: Never Used Alcohol Use Drinks/Week oz/Week Comments No Alcohol Habits Answer Date Recorded How often do you have a drink containing alcohol? Never 04/21/2020 How many drinks containing alcohol do you have on a typical Not asked day when you are drinking? How often do you have six or more drinks on one occasion? No t asked Sex Assigned at Date Recorded Not on file Job Start Date Occupation Industry Not on file Not on file Not on file Travel History Travel Start Travel End No recent travel history available. Last Filed Vital Signs Vital Sign Reading Time Taken Blood Pressure 167/69 04/24/2020 7:26 PM CDT Pulse 75 04/24/2020 7:26 PM CDT Temperature 36.7 C (98.1 F) 04/24/2020 7:26 PM CDT Respiratory Rate 17 04/24/2020 7:26 PM CDT Oxygen Saturation 96% 04/24/2020 7:26 PM CDT Inhaled Oxygen Concentration - - Weight 59.1 kg (130 lb 4.7 oz) 04/21/2020 11:00 PM CDT Height 152.4 cm (5') 04/21/2020 11:00 PM CDT Body Mass Index 25.45 04/21/2020 11:00 PM CDT Plan of Treatment Health Maintenance Due Date Last Done Comments DIABETIC EYE EXAM 1950 DIABETIC FOOT EXAM 1950 PNEUMOCOCCAL 65+ LOW/MEDIUM RISK (1 of 2 - PCV13) 2006 Medicare IPPE (WELCOME TO MEDICARE) 08/18/2019 INFLUENZA VACCINE (#1) 2020 HEMOGLOBIN A1C 10/22/2020 04/24/2020 URINE MICROALBUMIN 01/20/2021 01/21/2020 Procedures Procedure Name Priority Date/Time Associated Comments Diagnosis RHYTHM STRIP - SCAN 04/26/2020 1:51 PM CDT POCT-GLUCOSE METER Routine 04/24/2020 4:31 Resul ts for this PM CDT procedure are i n the results section. HEPATITIS PANEL, ACUTE Routine 04/24/2020 3:43 R esults for this PM CDT procedure are i n the results section. ECHO W/ CONTRAST Routine 04/24/2020 2:37 Results for this LIMITED STUDY PM CDT procedure are in the results section. POCT-GLUCOSE METER Routine 04/24/2020 12:25 Resul ts for this PM CDT procedure are i n the results section. COMPREHENSIVE Routine 04/24/2020 11:15 Results fo r this METABOLIC PANEL AM CDT procedure ar e in the results section. LIPID PANEL Routine 04/24/2020 11:15 Results for this AM CDT procedure are i n the results section. POCT-GLUCOSE METER Routine 04/24/2020 7:59 Resul ts for this AM CDT procedure are i n the results section. TSH/FREE T4 IF Add-On 04/24/2020 6:43 Results f or this INDICATED AM CDT procedure are i n the results section. HEMOGLOBIN A1C Routine 04/24/2020 6:43 Results f or this AM CDT procedure are i n the results section. FERRITIN Routine 04/24/2020 6:43 Results for this AM CDT procedure are i n the results section. PROTEIN Routine 04/24/2020 6:43 Results for this ELECTROPHORESIS, SERUM AM CDT proce dure are in the results section. METHYLMALONIC ACID Routine 04/24/2020 6:43 Resul ts for this AM CDT procedure are i n the results section. VITAMIN B12 AND FOLATE Routine 04/24/2020 6:43 R esults for this AM CDT procedure are i n the results section. POCT-GLUCOSE METER Routine 04/23/2020 11:06 Resul ts for this PM CDT procedure are i n the results section. US ABDOMEN LIMITED LOIS 04/23/2020 8:40 Resul ts for this PM CDT procedure are i n the results section. POCT-GLUCOSE METER Routine 04/23/2020 5:29 Resul ts for this PM CDT procedure are i n the results section. MR BRAIN WITH & Routine 04/23/2020 4:50 Results for this WITHOUT IV CONTRAST PM CDT procedur e are in the results section. CT BRAIN WITHOUT IV Routine 04/23/2020 9:17 Resu lts for this CONTRAST AM CDT procedure are i n the results section. CBC W/PLT COUNT & AUTO Routine 04/23/2020 4:02 R esults for this DIFFERENTIAL AM CDT procedure are i n the results section. HEPATIC FUNCTION PANEL Routine 04/23/2020 4:02 R esults for this AM CDT procedure are i n the results section. BASIC METABOLIC PANEL Routine 04/23/2020 4:02 Re sults for this (7) AM CDT procedure are i n the results section. CBC W/PLT COUNT & AUTO Routine 04/23/2020 4:02 R esults for this DIFFERENTIAL AM CDT procedure are i n the results section. POCT-GLUCOSE METER Routine 04/23/2020 3:50 Resul ts for this AM CDT procedure are i n the results section. POCT-GLUCOSE METER Routine 04/22/2020 8:53 Resul ts for this PM CDT procedure are i n the results section. POCT-GLUCOSE METER Routine 04/22/2020 4:06 Resul ts for this PM CDT procedure are i n the results section. POCT-GLUCOSE METER Routine 04/22/2020 12:06 Resul ts for this PM CDT procedure are i n the results section. 2D ECHO MODE W/O Routine 04/22/2020 10:03 Results for this DOPPLER AM CDT procedure are i n the results section. POCT-GLUCOSE METER Routine 04/22/2020 8:28 Resul ts for this AM CDT procedure are i n the results section. CBC W/PLT COUNT & AUTO Routine 04/22/2020 5:22 R esults for this DIFFERENTIAL AM CDT procedure are i n the results section. CBC W/PLT COUNT & AUTO Routine 04/22/2020 5:22 R esults for this DIFFERENTIAL AM CDT procedure are i n the results section. PHOSPHORUS Routine 04/22/2020 5:22 Results for this AM CDT procedure are i n the results section. MAGNESIUM Routine 04/22/2020 5:22 Results for this AM CDT procedure are i n the results section. HEPATIC FUNCTION PANEL Routine 04/22/2020 5:22 R esults for this AM CDT procedure are i n the results section. BASIC METABOLIC PANEL Routine 04/22/2020 5:22 Re sults for this (7) AM CDT procedure are i n the results section. SARS-COV2/RT-PCR ([facility] Routine 04/22/2020 12:49 R esults for this & REF LABS) AM CDT procedure are i n the results section. POCT-GLUCOSE METER Routine 04/21/2020 11:29 Resul ts for this PM CDT procedure are i n the results section. BLOOD CULTURE Routine 04/21/2020 9:35 Results fo r this PM CDT procedure are i n the results section. BLOOD CULTURE Routine 04/21/2020 9:35 Results fo r this PM CDT procedure are i n the results section. URINALYSIS W/ Routine 04/21/2020 9:19 Results fo r this MICROSCOPIC PM CDT procedure are i n the results section. ECG 12-LEAD Routine 04/21/2020 7:42 PM CDT Procedure Note - Interface, External Ris In - 04/21/2020 8:24 PM CDT Ventricular Rate 54 BPM Atrial Rate 54 BPM P-R Interval 174 ms QRS Duration 82 ms Q-T Interval 442 ms QTC Calculation(Bazett) 419 ms P Carson 35 degrees R Carson 7 degrees T Carson 69 degrees Sinus bradycardia Otherwise normal ECG No previous ECGs available ECG 12-LEAD Routine 04/21/2020 7:42 PM CDT Resu lts for this procedure are i n the results section . CBC W/PLT COUNT & AUTO LOIS 04/05/2020 6:24 AM CDT Results for this DIFFERENTIAL procedure are i n the results section . CBC W/PLT COUNT & AUTO LOIS 04/05/2020 6:24 AM CDT Results for this DIFFERENTIAL procedure are i n the results section . COMPREHENSIVE METABOLIC Routine 04/05/2020 4:25 AM CDT Results for this PANEL procedure are i n the results section . COMPREHENSIVE METABOLIC Routine 04/04/2020 4:01 AM CDT Results for this PANEL procedure are i n the results section . CBC W/PLT COUNT & AUTO Routine 04/03/2020 4:04 AM CDT Results for this DIFFERENTIAL procedure are i n the results section . CBC W/PLT COUNT & AUTO Routine 04/03/2020 4:04 AM CDT Results for this DIFFERENTIAL procedure are i n the results section . COMPREHENSIVE METABOLIC Routine 04/03/2020 4:04 AM CDT Results for this PANEL procedure are i n the results section . CBC W/PLT COUNT & AUTO Routine 04/02/2020 4:31 AM CDT Results for this DIFFERENTIAL procedure are i n the results section . CBC W/PLT COUNT & AUTO Routine 04/02/2020 4:31 AM CDT Results for this DIFFERENTIAL procedure are i n the results section . COMPREHENSIVE METABOLIC Routine 04/02/2020 4:31 AM CDT Results for this PANEL procedure are i n the results section . CBC W/PLT COUNT & AUTO Routine 04/01/2020 4:44 AM CDT Results for this DIFFERENTIAL procedure are i n the results section . PHOSPHORUS Routine 04/01/2020 4:44 AM CDT Resu lts for this procedure are i n the results section . MAGNESIUM Routine 04/01/2020 4:44 AM CDT Resu lts for this procedure are i n the results section . CBC W/PLT COUNT & AUTO Routine 04/01/2020 4:44 AM CDT Results for this DIFFERENTIAL procedure are i n the results section . COMPREHENSIVE METABOLIC Routine 04/01/2020 4:44 AM CDT Results for this PANEL procedure are i n the results section . FUNGUS CULTURE + SMEAR Routine 03/31/2020 6:14 PM CDT Results for this procedure are i n the results section . ANAEROBIC CULTURE Routine 03/31/2020 6:14 PM CDT Results for this procedure are i n the results section . CT DRAINAGE ABDOMINAL LOIS 03/31/2020 6:12 PM CDT Results for this procedure are i n the results section . WOUND CULTURE + GRAM STAIN Routine 03/31/2020 6:04 PM CDT Results for this procedure are i n the results section . CBC W/PLT COUNT & AUTO Routine 03/31/2020 9:15 AM CDT Results for this DIFFERENTIAL procedure are i n the results section . COMPREHENSIVE METABOLIC Add-On 03/31/2020 9:15 AM CDT Results for this PANEL procedure are i n the results section . LACTIC ACID, VENOUS Routine 03/31/2020 9:15 AM CDT Results for this procedure are i n the results section . MAGNESIUM Routine 03/31/2020 9:15 AM CDT Resu lts for this procedure are i n the results section . PT/APTT STAT 03/31/2020 9:15 AM CDT Resu lts for this procedure are i n the results section . CBC W/PLT COUNT & AUTO Routine 03/31/2020 9:15 AM CDT Results for this DIFFERENTIAL procedure are i n the results section . after 05/02/2019 Results RHYTHM STRIP - SCAN (04/26/2020 1:51 PM CDT) Narrative Performed At This result has an attachment that is no t available. POC-Glucose meter (04/24/2020 4:31 PM CDT)Only the most recent of11 results within the time period is included. POC-Glucose Meter 236 (H)Comment: : TESTED 70 - 110 mg/dL [facility] AT [address], [address]: Mine Wirer/Land Development Project Manager ID = [id number] for Byron Giulia Specimen Blood Performing Organization Address City/State/Zipcode Phone Number [facility] [address] [phone] [place] Hepatitis panel, acute (04/24/2020 3:43 PM CDT) Hep A IgM Nonreactive Nonreactive [facility] Hep B C IgM Nonreactive Nonreactive [facility] Hepatitis C Ab Nonreactive Nonreactive [facility] HBsAg Screen Nonreactive Nonreactive [facility] Specimen Blood Narrative Performed At Mine Wirer ID - DB [facility] Performing Organization Address City/State/Zipcode Phone Number [address] [address] [place] Echo w contrast limited study (04/24/2020 2:37 PM CDT) Ejection Fraction [facility] CPA Specimen Narrative Performed At Transthoracic Echocardiography Report (T TE) [facility] CPACS Demographics Patient NameMATHEWS, TUNDE Date of Study 04/24/2020 KANDIS Female Visit [id number] Unknown Room Number 1550 Number Date of 2Referring Tara Eagle MD Physician 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 Clinical History HGB 12.5 HCT 38.9 % RCC- S/P Resection 1996 DM HTN, HYPOTHYROIDISM Hx CAD-IA Contrast Medium: Bubble Study. Height: 60 inches Weight: 58.97 kg (130 lbs) BSA: 1.55 m^2 BMI: 25.39 kg/m^2 HR: 73 bpm BP: 144/65 mmHg Summary 2D ONLY STUDY. Full Study performed 04/22. IV saline contrast injection was negative for a PFO (patent foramen ovale) at rest and post Valsalva . Signature Findings Left Ventricle The left ventricle is chamber size (by PSLAX di mension) is normal (female - LVIDd 3.8-5 .2cm) . No rmal LV wall thickness. All of the LV se gments ar e hyperkinetic . Global LV systolic func tion hy perdynamic . LVEF by Butts's method of disk as sessment is increased (>70%) . Left AtriumLA size is normal (16-34 ml/m2) . Right VentricleThe right ventricular chamber size and systolic fu nction are within normal limits. Right Atrium RA cavity size is normal . Atrial SeptumIV saline contrast injection was negative for a PF O (p atent foramen ovale) at rest and post Va lsalva . Aortic Valve Mild AoV cusp calcification. Mitral Valve Mild MV leaflet thickening. Mi ld mitral annular calcification. Tricuspid ValveThe tricuspid valve is not well visualized. Pulmonic Valve PV is not well visualized. PericardiumAn echo lucent space is noted consistent with pr ominent pericardial fat pad. No significant pericardial effusion is visu alized. IVC/SVC/PA/PV/Pleural Chambers/Structures Left Atrium LA Dimension: 3.58 cmLA Area: 19.18 cm^2 LA Volume: 50.48 ml LA Vol. 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 Clinical History HGB 12.5 HCT 38.9 % RCC- S/P Resection 1996 DM HTN, HYPOTHYROIDISM Hx CAD-IA Contrast Medium: Bubble Study. Height: 60 inches Weight: 58.97 kg (130 lbs) BSA: 1.55 m^2 BMI: 25.39 kg/m^2 HR: 73 bpm BP: 144/65 mmHg Summary 2D ONLY STUDY. Full Study performed 04/22. IV saline contrast injection was negati ve for a PFO (patent foramen ovale) at rest and post Valsalva . Signature Findings Left Ventricle The left ventric le is chamber size (by PSLAX dimension) is no rmal (female - LVIDd 3.8-5.2cm) . Normal LV wall t hickness. All of the LV segments are hyperkinetic . Global LV systolic function hyperdynamic . L VEF by Butts's method of disk assessment is in creased (>70%) . Left Atrium LA size is anum l (16-34 ml/m2) . Right Ventricle The right ventri cular chamber size and systolic function are wit hin normal limits. Right Atrium RA cavity size i s normal . Atrial Septum IV saline contra st injection was negative for a PFO (patent foramen ovale) at rest and post Valsalva . Aortic Valve Mild AoV cusp ca lcification. Mitral Valve Mild MV leaflet thickening. Mild mitral diana lar calcification. Tricuspid Valve The tricuspid va lve is not well visualized. Pulmonic Valve PV is not well v isualized. Pericardium An echo lucent s pace is noted consistent with prominent perica rdial fat pad. No significant p ericardial effusion is visualized. IVC/SVC/PA/PV/Pleural Chambers/Structures Left Atrium LA Dimension: 3.58 cm LA Area: 19.18 cm^2 LA Volume: 50.48 ml LA Vol. Index: 33 ml/m^2 Left Ventricle LVIDd: 4.39 cm LVIDs: 2.11 cm LV Septum Diastolic: 1.06 cm LV PW Diastolic: 0.99 cm LV FS: 51.9 % LVOT Diameter: 1.94 cm Aorta Ao Root S of [place].: 2.85 cm Doppler/Quantitative Measurements LVOT LVOT Diameter: 1.94 cm LVOT Area: 2.96 cm^2 Performing Organization Address City/State/Zipcode Phone Number [facility] Lipid panel (04/24/2020 11:15 AM CDT) Triglycerides 225Comment: Specimen slightly mg/dL [facility] Cholesterol 241Comment: Specimen slightly mg/dL [facility] HDL 60 mg/dL [facility] LDL Calculated 136 mg/dL [facility] Specimen Blood Narrative Performed At Triglyceride Reference Range: [facility] Low Risk <150 [id number] High Risk 200-499 Very High Risk>=500 Cholesterol Reference Range: Low Risk <200 [id number] High Risk>240 HDL Cholesterol Reference Range: Low Risk >=60 High Risk <40 LDL Cholesterol Reference Range: Optimal<100 Near [id number] Very High >=190 Mine Wirer ID - SUSI Weiss Specimen moderately icteric Performing Organization Address City/State/Zipcode Phone Number [facility] [address] [place] [address] [place] Comprehensive metabolic panel (04/24/2020 11:15 AM CDT)Only the most recent of7 resultswithin the time period is included. Protein, Total 5.6 (L)Comment: Specimen 6.0 - 8.3 gm/dL [facility] slightly hemolyzed [facility] Albumin 3.4 (L)Comment: Specimen 3.5 - 5.0 g/dL [facility] slightly hemolyzed [facility] Alkaline Phosphatase 79 40 - 150 U/L [facility] Total Bilirubin 0.8Comment: Specimen 0.2 - 1.2 mg/dL [facility] slightly hemolyzed [facility] Sodium 136 136 - 145 meq/L [facility] Potassium 4.5Comment: Specimen 3.5 - 5.1 meq/L [facility] slightly hemolyzed [facility] Chloride 100 98 - 107 meq/L [facility] CO2 31 (H) 22 - 29 meq/L [facility] BUN 24 (H) 7 - 21 mg/dL [facility] Creatinine 0.90Comment: Specimen 0.57 - 1.25 mg/dL [facility] slightly hemolyzed [facility] Glucose 336 (H) 70 - 105 mg/dL [facility] Calcium 8.9 8.4 - 10.2 mg/dL [facility] AST 45 (H)Comment: Specimen 5 - 34 U/L [facility] slightly hemolyzed [facility] ALT 120 (H)Comment: Specimen 6 - 55 U/L [facility] slightly hemolyzed [facility] EGFR 61Comment: ESTIMATED GFR mL/min/1.73 sq m [facility] IS NOT ACCURATE [facility] CREATININE CLEARANCE IN PREDICTING GLOMERULAR FILTRATION RATE. ESTIMATED GFR IS NOT APPLICABLE FOR DIALYSIS PATIENTS. Specimen Blood Narrative Performed At Mine Wirer ID - SUSI M [facility] Specimen moderately icteric Performing Organization Address [facility] Phone Number [address] [address] [place] Vitamin B12 and Folate (04/24/2020 6:43 AM CDT) Vitamin B12 1,155 (H) 213 - 816 pg/mL [facility] Folate 8.50 >=7.00 ng/mL [facility] Specimen Blood Narrative Performed At Mine Wirer ID - [place] [facility] Performing Organization Address [facility] Phone Number [address] [phone] [place] TSH/Free T4 If Indicated (04/24/2020 6:43 AM CDT) TSH 3.805 0.350 - 4.940 uIU/mL [facility] Specimen Blood Narrative Performed At Mine Wirer ID - [place] [facility] Performing Organization Address [facility] Phone Number [address] [id number] [place] Methylmalonic acid (04/24/2020 6:43 AM CDT) Methlymalonic Acid,Ser 206 87 - 318 nmol/L [facility] Comment: INC[facility]PORATED This test was developed and its analytical perfo rmance characteristics have been determined by [facility] [employer]. It has not been cleared or approved by FDA. This assay has been validated pursuant to the CLIA regulations and is used for clinical purposes. Specimen Blood Narrative Performed At Performing Lab [facility] EZ [facility] [address] [address] [place] [address] I Hayder VERGARA, PhD, RICHI Performing Organization Address City/[facility]/Zipcode Phone Number [facility] [place] [phone] [facility] [address] [facility] Protein electrophoresis, serum (04/24/2020 6:43 AM CDT) Albumin Fraction 3.0 (L) 3.5 - 5.5 g/dL [facility] Alpha 1 Fraction 0.2 0.2 - 0.4 g/dL [facility] ER Alpha 2 Fraction 0.8 0.5 - 0.9 g/dL [facility] ER Beta Fraction 0.6 0.6 - 1.1 g/dL [facility] ER Gamma Globulin Fraction 0.4 (L) 0.7 - 1.7 g/dL [facility] ER Interpretation Pattern suggestive of [facility] mild acute inflammation [facility] coupled with urine protein loss and/or protein-losing enteropathy. No monoclonal bands detected. Pathologist: Yudith Emanuel MD [facility] (electronic signature) [facility] Protein, Total 5.0 (L) 6.0 - 8.3 gm/dL [facility] ER Specimen Blood Narrative Performed At [facility] ID - EVELIA M [facility] Performing Organization Address City/[facility]/Zipcode Phone Number [facility] [address] [place] [phone] CENTER Hemoglobin A1c (04/24/2020 6:43 AM CDT) Hemoglobin A1C 8.0 (H) 4.3 - 6.1 % [facility] Specimen Blood Performing Organization Address City/[facility]/Zipcode Phone Number [address] [address] CENTER Ferritin (04/24/2020 6:43 AM CDT) Ferritin 292.76 (H) 5.00 - 275.00 ng/mL [facility] Specimen Blood Narrative Performed At [facility] ID - AALUCRETIAID [facility] Performing Organization Address City/State/Zipcode Phone Number [facility] [address] [place] [address] CENTER US abdomen limited (04/23/2020 8:40 PM CDT) Specimen Narrative Performed At FINAL REPORT GE [facility] U/S, ABDOMINAL, LIMITED CLINICAL HISTORY: elevated lfts Comparison: None Technique:Real-time transabdominal u ltrasound of the right upper quadrant abdomen was performed. Liver: 10.3 cm,No acute findings. No focal lesion. Echotexture is homogeneous. Gallbladder: Not visualized. Biliary tree: No intrahepatic ductal dil atation. CBD: 0.4 cm. Pancreas:Not well-seen. Right kidney:Status post right nephr ectomy. No ascites is present in the abdomen. Partially seen aorta is unremarkable. Impression: No acute findings. Cholecystectomy and right nephrectomy. . Signed: Rao Torre MD Report Verified Date/Time:04/23/2020 23:25:58 Procedure Note Interface, External Ris In - 04/23/2020 11:29 PM CDT FINAL REPORT U/S, ABDOMINAL, LIMITED CLINICAL HISTORY: elevated lfts Comparison: None Technique: Real-time transabdominal ult rasound of the right upper quadrant abdomen was performed. Liver: 10.3 cm, No acute findings. No f ocal lesion. Echotexture is homogeneous. Gallbladder: Not visualized. Biliary tree: No intrahepatic ductal dil atation. CBD: 0.4 cm. Pancreas: Not well-seen. Right kidney: Status post right nephrec kaila. No ascites is present in the abdomen. Partially seen aorta is unremarkable. Impression: No acute findings. Cholecystectomy and right nephrectomy. . Signed: Rao Torre MD Report Verified Date/Time: 04/23/2020 2 3:25:58 Performing Organization Address City/State/Zipcode Phone Number [facility] MR brain without & with IV contrast (04/23/2020 4:50 PM CDT) Specimen Narrative Performed At FINAL REPORT [facility] MRI Brain with and without contrast CLINICAL HISTORY: Brain mass or lesion, follow-up Technique: MRI of the brain utilizing ax ial T1, T2, FLAIR, GRE, DWI, sagittal T1; and postgadolinium axial, s agittal, and coronal T1-weighted images. Comparisons: CT head 04/23/2020 Findings: Posterior fossa dural based extra-axial enhancing lesion along the inferior aspect of the right tentorial l eaflet measuring 1.7 x 1.5 x 1.1 cm appears calcified on comparison C T. There is compression of the right transverse sinus which enhance s homogeneously elsewhere on postcontrast images. Suspect venous keisha aterals along the superior margin of the right transverse sinus. No pathologic intra-axial enhancement. Nonspecific T2 FLAIR hyperi ntensities typical of chronic microangiopathy ischemic changes present .. Left temporal lobe periventricular 3 mm DWI/T2 FLAIR hyperintensity. No hydrocephalus or acute intracranial h emorrhage. Orbits, globes and paranasal sinuses are unremarkable. Trace mastoid effusions. No destructive osseous lesion . Expected flow voids at the skull base are present. IMPRESSION: Left temporal lobe periventricular 3 mm acute lacunar infarct. Right tentorial leaflet extra-axial 1.7 x 1.5 x 1.7 cm calcified enhancing lesion consistent with a menin gioma. The lesion compresses/invades of the right transver se sinus which remains patent likely due to collateral veins. Signed: Rao Torre MD Report Verified Date/Time:04/24/2020 02:52:33 Procedure Note Interface, External Ris In - 04/24/2020 2:54 AM CDT FINAL REPORT MRI Brain with and without contrast CLINICAL HISTORY: Brain mass or lesion, follow-up Technique: MRI of the brain utilizing ax ial T1, T2, FLAIR, GRE, DWI, sagittal T1; and postgadolinium axial, s agittal, and coronal T1-weighted images. Comparisons: CT head 04/23/2020 Findings: Posterior fossa dural based extra-axial enhancing lesion along the inferior aspect of the right tentorial l eaflet measuring 1.7 x 1.5 x 1.1 cm appears calcified on comparison C T. There is compression of the right transverse sinus which enhance s homogeneously elsewhere on postcontrast images. Suspect venous keisha aterals along the superior margin of the right transverse sinus. No pathologic intra-axial enhancement. Nonspecific T2 FLAIR hyperi ntensities typical of chronic microangiopathy ischemic changes present .. Left temporal lobe periventricular 3 mm DWI/T2 FLAIR hyperintensity. No hydrocephalus or acute intracranial h emorrhage. Orbits, globes and paranasal sinuses are unremarkable. Trace mastoid effusions. No destructive osseous lesion . Expected flow voids at the skull base are present. IMPRESSION: Left temporal lobe periventricular 3 mm acute lacunar infarct. Right tentorial leaflet extra-axial 1.7 x 1.5 x 1.7 cm calcified enhancing lesion consistent with a menin gioma. The lesion compresses/invades of the right transver se sinus which remains patent likely due to collateral veins. Signed: Rao Torre MD Report Verified Date/Time: 04/24/2020 0 2:52:33 Performing Organization Address City/State/Zipcode Phone Number [facility] brain without IV contrast (04/23/2020 9:17 AM CDT) Specimen Narrative Performed At FINAL REPORT [facility], BRAIN, WITHOUT CONTRAST INDICATION: Unlisted Reason for Exam fatigue with uncontrolled hypertension TECHNIQUE: Noncontrast axial imaging was obtained from the vertex to the skull base. Axial images were recons tructed using a bone algorithm. DOSE REDUCTION: Dose modulation, iterati ve reconstruction, and/or weight-based adjustment of the mA/kV was utilized to reduce the radiation dose to as low as reasonably a chievable. COMPARISON: None. FINDINGS: Intracranial: There is a 1.4 x 2 x 1.3 c m densely calcified lesion along the inferior aspect of the right t entorial leaflet and abutting the inner table of the posterior fossa. It may be extending into the right transverse sinus. There appears to be mild adjacent parenchymal edema. No significant mass effect. No intracranial hemorrhage or abnormal e xtra-axial collection. No evidence of acute territorial infarct. N o hydrocephalus. Generalized cerebral atrophy with ex vac uo dilatation of the ventricular system proportionate to sulc i. Scattered foci of hypoattenuation within the periventricul ar and subcortical white matter are a nonspecific finding commonl y attributed to chronic small vessel ischemic disease. Osseous structures: No fracture. No susp icious lesion. Paranasal sinuses and mastoid air cells: No evidence of sinusitis. Mastoids are clear. Orbital contents: Globes are intact. IMPRESSION: Densely calcified right posterior fossa lesion, possibly extending into the transverse sinus. MRI with and without contrast is recommended for further evaluation. Signed: Derick Rangel MD Report Verified Date/Time:04/23/2020 10:32:40 Procedure Note Interface, External Ris In - 04/23/2020 10:34 AM CDT FINAL REPORT CT, BRAIN, WITHOUT CONTRAST INDICATION: Unlisted Reason for Exam fatigue with uncontrolled hypertension TECHNIQUE: Noncontrast axial imaging was obtained from the vertex to the skull base. Axial images were recons tructed using a bone algorithm. DOSE REDUCTION: Dose modulation, iterati ve reconstruction, and/or weight-based adjustment of the mA/kV was utilized to reduce the radiation dose to as low as reasonably a chievable. COMPARISON: None. FINDINGS: Intracranial: There is a 1.4 x 2 x 1.3 c m densely calcified lesion along the inferior aspect of the right t entorial leaflet and abutting the inner table of the posterior fossa. It may be extending into the right transverse sinus. There appears to be mild adjacent parenchymal edema. No significant mass effect. No intracranial hemorrhage or abnormal e xtra-axial collection. No evidence of acute territorial infarct. N o hydrocephalus. Generalized cerebral atrophy with ex vac uo dilatation of the ventricular system proportionate to sulc i. Scattered foci of hypoattenuation within the periventricul ar and subcortical white matter are a nonspecific finding commonl y attributed to chronic small vessel ischemic disease. Osseous structures: No fracture. No susp icious lesion. Paranasal sinuses and mastoid air cells: No evidence of sinusitis. Mastoids are clear. Orbital contents: Globes are intact. IMPRESSION: Densely calcified right posterior fossa lesion, possibly extending into the transverse sinus. MRI with and without contrast is recommended for further evaluation. Signed: Derick Rangel MD Report Verified Date/Time: 04/23/2020 1 0:32:40 Performing Organization Address City/State/Zipcode Phone Number GE RIS CBC with platelet count + automated diff (04/23/2020 4:02 AM CDT)Only the most recent of7 resultswithin the time period is included. WBC 10.4 3.5 - 10.5 K/L [facility] RBC 4.20 3.93 - 5.22 M/L [facility] Hemoglobin 12.5 11.2 - 15.7 GM/DL [facility] Hematocrit 38.9 34.1 - 44.9 % [facility] MCV 92.6 79.4 - 94.[address] MCH 29.8 25.6 - 32.2 [address] [facility] MCHC 32.1 (L) 32.2 - 35.5 GM/DL [facility] RDW 14.7 (H) 11.7 - 14.4 % [facility] Platelets 100 (L) 150 - 450 K/CU MM [facility] MPV 11.2 9.4 - 12.3 [address] [facility] nRBC 0 0 - 0 /100 WBC [facility] % Neutros 86 % [facility] % Lymphs 8 % [facility] % Monos 5 % [facility] % Eos 0 % [facility] % Baso 0 % [facility] # Neutros 8.91 (H) 1.56 - 6.13 K/L [facility] # Lymphs 0.78 (L) 1.18 - 3.74 K/L [facility] # Monos 0.56 (H) 0.24 - 0.36 K/L [facility] # Eos 0.01 (L) 0.04 - 0.36 K/L [facility] # Baso 0.01 0.01 - 0.08 K/L [facility] Immature Granulocytes-Relative 1 0 - 1 % C [facility] Specimen Blood Performing Organization Address City/State/Zipcode Phone Number [address] [address] [place] Hepatic function panel (04/23/2020 4:02 AM CDT)Only the most recent of2 results within the time period is included. Protein, Total 4.9 (L)Comment: Specimen 6.0 - 8.3 gm/dL [facility] moderately hemolyzed [facility] Albumin 2.9 (L)Comment: Specimen 3.5 - 5.0 g/dL [facility] moderately hemoly[address] [facility] Total Bilirubin 0.6Comment: Specimen 0.2 - 1.2 mg/dL [facility] Bilirubin, Direct 0.2Comment: Specimen 0.1 - 0.5 mg/dL [facility] moderately hemolyzed [facility] Alkaline Phosphatase 61 40 - 150 U/L [facility] ER AST 43 (H)Comment: Specimen 5 - 34 U/L [facility] moderately hemolyzed [facility] ALT 90 (H)Comment: Specimen 6 - 55 U/L [facility] hemolyzed [facility] Specimen Blood Narrative Performed At [employer] TIARA - EVELIA Weiss [facility] Specimen moderately icteric Performing Organization Address City/State/Zipcode Phone Number [facility] [address] [place], [place] [phone] [place] Basic Metabolic Panel (04/23/2020 4:02 AM CDT)Only the most recent of2 results within the time period is included. Sodium 137 136 - 145 meq/L [facility] Potassium 4.2Comment: Specimen 3.5 - 5.1 meq/L [facility] moderately hemolyzed [facility] TER Chloride 106 98 - 107 meq/L [facility] AL[facility] CO2 24 22 - 29 meq/L [facility] BUN 20 7 - 21 mg/dL [facility] Creatinine 0.80Comment: Specimen 0.57 - 1.25 mg/dL [facility] moderately hemolyzed [facility] TER Glucose 193 (H) 70 - 105 mg/dL [facility] Calcium 8.0 (L) 8.4 - 10.2 mg/dL [facility] EGFR 69Comment: ESTIMATED GFR IS mL/min/1.73 sq m [facility] NOT ACCURATE CREATININE [facility] CLEARANCE IN PREDICTING GLOMERULAR FILTRATION RATE. ESTIMATED GFR IS NOT APPLICABLE FOR DIALYSIS PATIENTS. Specimen Blood Narrative Performed At [facility] [employer] ID - EVELIA M [facility] Specimen moderately icteric Performing Organization Address City/State/Zipcode Phone Number [facility] [address] [place], [place] [phone] [place] 2D Echo W/O Doppler(No Doppler) (04/22/2020 10:03 AM CDT) Ejection Fraction [facility] TLAB [facility] CPA Specimen Narrative Performed At Transthoracic Echocardiography Report (T TE) [facility]ART[facility] Demographics Patient NameMATHEWS, TUNDE Date of Study 04/22/2020 KANDIS Female Visit [id number] Unknown Room Number 1550 Number Date of 2Referring [place] Physician 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 Clinical History HGB 14.6 HCT 44.4 % DM Renal Cell Carcinoma-S/p resection 1996 HTN, HYPOTHYROIDISM Hx CAD-IA Height: 60 inches Weight: 58.97 kg (130 lbs) BSA: 1.55 m^2 BMI: 25.39 kg/m^2 HR: 64 bpm BP: 177/75 mmHg Summary The left ventricle is chamber size (by PSLAX dimension) is normal (female - LVIDd 3.8-5.2cm) . All of the LV segments are hyperkinetic . Global LV systolic function hyperdynamic . LVEF by Butts's method of disk assessment is increased (>70%) . Intracavitary gradient at rest is 25mmHg and with Valsalva maneuver is 35mmHg. Grade 1 diastolic dysfunction (impaired relaxation and low-normal LA pressure). Unable to estimate peak systolic PA pressure; inadequate TR velocity signal. Previous Study No prior studies available for comparis on. Signature Findings Left Ventricle The left ventricle is chamber size (by PSLAX di mension) is normal (female - LVIDd 3.8-5 .2cm) . No rmal LV wall thickness. All of the LV se gments ar e hyperkinetic . Global LV systolic func tion hy perdynamic . LVEF by Butts's method of disk as sessment is increased (>70%) . Intracavi tary gr adient at rest is 25mmHg and with Valsal va ma neuver is 35mmHg. Grade 1 diastolic dysf unction (i mpaired relaxation and low-normal LA pre ssure). Left AtriumLA size is mildly enlarged (35-41 ml/m2) . Right VentricleThe right ventricular chamber size and systolic fu nction are within normal limits. Right Atrium RA cavity size is normal . Aortic Valve Mild AoV cusp calcification. Mitral Valve Mild MV leaflet thickening. Mi ld mitral annular calcification. Tricuspid ValveUnable to estimate peak systolic PA pressure; in adequate TR velocity signal. Pulmonic Valve Mild pulmonary regurgitation. No rmal PV structure and function by limite d views an d Doppler. AortaAortic root size (SInus of Valsalva diameter) i s no rmal . Proximal ascending aorta size is normal . PericardiumAn echo lucent space is noted consistent with pr ominent pericardial fat pad. No significant pericardial effusion is visu alized. IVC/SVC/PA/PV/PleuralThe right upper pulmonary vein (RUPV) is normal . Th e estimated RA pressure by IVC dynamics 5-10mmHg . Chambers/Structures Left Atrium LA Volume: 53.8 mlLA Area: 18.88 cm^2 LA Vol. Index: 35 ml/m^2 Left Ventricle LVIDd: 4.66 cm LV Septum Diastolic: 1.11 cm LV PW Diastolic: 1.07 cm LVEDV Butts's:51.7 ml LVESV Butts's:15.4 ml LVEF Butts's: 70.2 % LVEDVI: 33 ml/m^2 LVESVI: 10 ml/m^2 LVOT Diameter: 2.07 cm Right Ventricle TAPSE: 1.72 cm Aorta Ao Root S of Shannon.: 2.7 cmAscending Aorta: 3.27 cm Doppler/Quantitative Measurements Mitral Valve MV Peak E-Wave: 0.82 m/sMV Peak A-Wave: 1.4 m/s E/A Ratio: 0. 59 Peak Gradient: 2.69 mmHg Deceleration Time: 443.2 msec MV Andrew. Peak: Tissue Doppler E' Septal Velocity: 0.06 m/sE/E': 14.67 E' Lateral Velocity: 0.06 m/s Aortic Valve Peak Velocity: 2.22 m/sMean Velocity: 1.3 m/s Peak Gradient: 19.74 mmHgMean Gradient: 8.32 mmHg AV Area (continuity): 2.08 cm^2 AV VTI: 42.37 cm AV DVI: 0.62 LVOT Peak Velocity: 1.38 m/s Peak Gradient: 7.59 mmHg Mean Velocity: 0.99 m/s Mean Gradient: 4.49 mmHg LVOT Diameter: 2.07 cmLVOT VTI: 26.25 cm LVOT Area: 3.37 cm^2LVOT SV:88.3 ml LVOT CO: 5.65 l/min LVOT CI: 3.65 l/min/m^2 Procedure Note Interface, External Ris In - 04/22/2020 4:55 PM CDT Transthoracic Echocardiography Report (TTE) Demographics Patient Name TUNDE WELLER Date of Study 04/22/2020 KANDIS Gender Female Visit Number [id number] Race Unknown Room [place] [address] Number Date of 1940 Referri nathan Falconi an 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 Clinical History HGB 14.6 HCT 44.4 % DM Renal Cell Carcinoma-S/p resection 1996 HTN, HYPOTHYROIDISM Hx CAD-IA Height: 60 inches Weight: 58.97 kg (130 lbs) BSA: 1.55 m^2 BMI: 25.39 kg/m^2 HR: 64 bpm BP: 177/75 mmHg Summary The left ventricle is chamber size (by PSLAX dimension) is normal (female - LVIDd 3.8-5.2cm) . All of the LV segm ents are hyperkinetic . Global LV systolic function hyperdynamic . LVEF b y Butts's method of disk assessment is increased (>70%) . Intracavitary gradient at rest is 25mmH g and with Valsalva maneuver is 35mmHg. Grade 1 diastolic dysfunction (impaired relaxation and low-normal LA pressure). Unable to estimate peak systolic PA pre ssure; inadequate TR velocity signal. Previous Study No prior studies available for comparis on. Signature Findings Left Ventricle The left ventric le is chamber size (by PSLAX dimension) is no rmal (female - LVIDd 3.8-5.2cm) . Normal LV wall t hickness. All of the LV segments are hyperkinetic . Global LV systolic function hyperdynamic . L VEF by Butts's method of disk assessment is in creased (>70%) . Intracavitary gradient at rest is 25mmHg and with Valsalva maneuver is 35mm Hg. Grade 1 diastolic dysfunction (impaired relaxa tion and low-normal LA pressure). Left Atrium LA size is mildl y enlarged (35-41 ml/m2) . Right Ventricle The right ventri cular chamber size and systolic function are wit hin normal limits. Right Atrium RA cavity size i s normal . Aortic Valve Mild AoV cusp ca lcification. Mitral Valve Mild MV leaflet thickening. Mild mitral diana lar calcification. Tricuspid Valve Unable to estima te peak systolic PA pressure; inadequate TR ve locity signal. Pulmonic Valve Mild pulmonary r egurgitation. Normal PV struct ure and function by limited views and Doppler. Aorta Aortic root size (SInus of Valsalva diameter) is normal . Proxima l ascending aorta size is normal . Pericardium An echo lucent s pace is noted consistent with prominent perica rdial fat pad. No significant p ericardial effusion is visualized. IVC/SVC/PA/PV/Pleural The right upper pulmonary vein (RUPV) is normal . The estimated RA pressure by IVC dynamics 5-10mmHg . Chambers/Structures Left Atrium LA Volume: 53.8 ml LA Area: 18.88 cm^2 LA Vol. Index: 35 ml/m^2 Left Ventricle LVIDd: 4.66 cm LV Septum Diastolic: 1.11 cm LV PW Diastolic: 1.07 cm LVEDV Butts's:51.7 ml LVESV Butts's:15.4 ml LVEF Butts's: 70.2 % LVEDVI: 33 ml/m^2 LVESVI: 10 ml/m^2 LVOT Diameter: 2.07 cm Right Ventricle TAPSE: 1.72 cm Aorta Ao Root S of Shannon.: 2.7 cm Ascending Aorta: 3.27 cm Doppler/Quantitative Measurements Mitral Valve MV Peak E-Wave: 0.82 m/s M V Peak A-Wave: 1.4 m/s E /A Ratio: 0.59 P eak Gradient: 2.69 mmHg D eceleration Time: 443.2 msec MV Andrew. Peak: Tissue Doppler E' Septal Velocity: 0.06 m/s E /E': 14.67 E' Lateral Velocity: 0.06 m/s Aortic Valve Peak Velocity: 2.22 m/s Mean Velocity: 1.3 m/s Peak Gradient: 19.74 mmHg Mean Gradient: 8.32 mmHg AV Area (continuity): 2.08 cm^2 AV VTI: 42.37 cm AV DVI: 0.62 LVOT Peak Velocity: 1.38 m/s Pea k Gradient: 7.59 mmHg Mean Velocity: 0.99 m/s Alejandra n Gradient: 4.49 mmHg LVOT Diameter: 2.07 cm LVO T VTI: 26.25 cm LVOT Area: 3.37 cm^2 LVO T SV:88.3 ml LVOT CO: 5.65 l/min LVO T CI: 3.65 l/min/m^2 Performing Organization Address City/State/Zipcode Phone Number [facility] Phosphorus (04/22/2020 5:22 AM CDT)Only the most recent of2 resultswithin the time period is included. Phosphorus 3.1 2.3 - 4.7 mg/dL [facility] Specimen Blood Narrative Performed At [employer] TIARA Weiss [facility] Performing Organization Address City/State/Zipcode Phone Number [place] [phone] [place] [address] CENTER Magnesium (04/22/2020 5:22 AM CDT)Only the most recent of3 resultswithin the time period is included. Magnesium 1.9 1.6 - 2.6 mg/dL [facility] Specimen Blood Narrative Performed At [employer] ID - EVELIA Weiss [facility] Performing Organization Address City/State/Zipcode Phone Number [phone] [address] [id number] CENTER SARS-CoV2/RT-PCR (Asymptomatic ONLY) (04/22/2020 12:49 AM CDT) SARS-COV2/RT-PCR Negative Not Detected, Negative, [facility] See external report for MEDICAL CENTER linked test SARS-COV-2 PERFORMING LAB [facility] Specimen Other Narrative Performed At Negative result for this test determines that [facility] SARS-CoV-2 RNA was not present in the specimen above the Limit of Detection (LOD).However, Negative results do not preclude SARS-CoV-2 infection and should not be used as the sole basis for treatment or patient management decisions. Negative results must be combined with clinical observations, patient history, and epidemiological information. A false negative result may occur if a specimen is improperly collected, transported or handled.A false negative result should be considered if patient's recent exposures or clinical presentation indicate that COVID-19 (SARS-CoV-2) is likely and diagnostic tests for other causes of illness are negative.Re-testing should be considered in cases of suspected false negatives. The limit of detection for this assay is 800 copies/mL. This SARS CoV-2 test is a real-time RT-PCR test intended for the qualitative detection of nucleic acid from SARS-CoV-2 in a nasopharyngeal swab specimen collected from individuals suspected of COVID-19 by their healthcare provider. This test has not been Food and Drug Administration (FDA) cleared or approved.This is a modified version of an approved Emergency Use Authorization (EUA) and is in the process of review by the FDA. Once authorized by the FDA, the issued EUA will be effective until the declaration that circumstances exist justifying the authorization of the emergency use of in vitro diagnostic tests for detection and/or diagnosis of COVID-19 is terminated under Section 564(b)(2) of the Act or the EUA is revoked under Section 564(g) of the Act. Fact Sheet for Healthcare Providers: https://www.CommProve/sites/default/files/pro duct/documents/Fact_Sheet_HC_Providers_Lyra_SA RS-CoV-2.pdf Fact Sheet for Healthcare Patients: https://www.CommProve/sites/default/files/pro duct/documents/Fact_Sheet_Patients_Lyra_SARS-C oV-2.pdf Performing Laboratory: [place] [address] Performing Organization Address City/[facility]/[place] [address] [place] Blood Culture - Routine (Left Venipuncture) (04/21/2020 9:35 PM CDT)Only the most recent of2 resultswithin the time period is included. Result No growth in 5 days [facility] Specimen Blood Performing Organization Address [facility] [place] [address] [place] Urinalysis w/Microscopic (04/21/2020 9:19 PM CDT) Color, UA Light Yellow [facility] Clarity, UA Clear [facility] Specific [place], UA 1.029 1.001 - 1.035 [facility] pH, UA 6.0 5.0 - 8.0 [facility] Protein, UA Negative Negative [facility] Glucose, UA 30 mg/dL (A) Negative [facility] Ketones, UA Negative Negative [facility] Bilirubin, UA Negative Negative [facility] Blood[facility] UA Negative Negative [facility] Nitrite[facility] UA Negative Negative [facility] Leukocytes, UA Trace (A) Negative [facility] Urobilinogen, UA 0.2 0.2 - 1.0 mg/dL [facility] RBC[facility] UA 1 /HPF [facility] WBC, UA 3 /HPF [facility] Squam Epithel, UA <1 /HPF [facility] Specimen Source [facility] Specimen Urine Narrative Performed At Mine Wirer ID - [auto] [facility] Mine Wirer ID - [email or web address] Performing Organization Address City/[facility] Corporation[facility] Phone Number [facility] [address] [place] [address] CENTER ECG 12 lead (04/21/2020 7:42 PM CDT) Specimen Narrative Performed At Ventricular Rate 54 BPM GE MUSE Atrial Rate 54 BPM P-R Interval 174 ms QRS Duration 82 ms Q-T Interval 442 ms QTC Calculation(Bazett) 419 ms P Carson 35 degrees R Carson 7 degrees T Carson 69 degrees Sinus bradycardia Otherwise normal ECG No previous ECGs available Confirmed by MD Renteria Roberto ([id number]) on 2019 6:06:55 PM Procedure Note Interface, External Ris In - 04/22/2020 6:07 PM CDT Ventricular Rate 54 BPM Atrial Rate 54 BPM P-R Interval 174 ms QRS Duration 82 ms Q-T Interval 442 ms QTC Calculation(Bazett) 419 ms P Carson 35 degrees R Carson 7 degrees T Carson 69 degrees Sinus bradycardia Otherwise normal ECG No previous ECGs available Confirmed by MD Renteria Roberto ([id number]) on 04/22/2020 6:06:55 PM Performing Organization Address City/[facility] Phone Number ZURI MOSS Anaerobic culture (03/31/2020 6:14 PM CDT) Result No anaerobes isolated [facility] Specimen Body Fluid Performing Organization Address City/[facility]/Zipcode Phone Number [facility] [address] [place] [address] [place] Fungus culture + smear (03/31/2020 6:14 PM CDT) Result 3+ Lorri albicans (A) [facility] Fungus Smear No fungi seen [facility] Specimen Body Fluid Performing Organization Address City/[facility]/Zipcode Phone Number [facility] [address] [place] [address] drainage abdominal (03/31/2020 6:12 PM CDT) Specimen Narrative Performed At FINAL REPORT [facility] PROCEDURE: CT, DRAINAGE, ABDOMINAL DOSE REDUCTION: The examination was perf ormed according to departmental dose-optimization program w hich includes automated exposure control, adjustment of the mA a nd/or kV according to patient size and/or use of iterative reconstruct ion technique. HISTORY: Diverticulitis with increasing size of abscess Mine Wirer: Bam Ko MD Moderate sedation: See nursing medication administration re cord regarding medication doses. Vital signs were monitored throughout e procedure by a nurse, and remained [...] dilated using serial dilators. Subsequently a 8 Spanish all-purpose drainage catheter was advanced into the collectio n using CT guidance. Approximately 15 cc of thick purulent fl uid was obtained. Samples were submitted to microbiology for furth er testing.Catheter was anchored to the skin [...] into the mid abdominal abscess. Signed: Bam Ko MD Report Verified Date/Time:04/01/2020 12:12:30 Reading Location: [place] [id number] [facility] Reading Room Procedure Note Interface, External Ris In - 04/01/2020 12:14 PM CDT FINAL REPORT PROCEDURE: CT, DRAINAGE, ABDOMINAL DOSE REDUCTION: The examination was perf ormed according to departmental dose-optimization program w hich includes automated exposure control, adjustment of the mA a nd/or kV according to patient size and/or use of iterative reconstruct ion technique. HISTORY: Diverticulitis with increasing size of abscess Mine Wirer: Bam Ko MD Moderate sedation: See nursing medication administration [...] dilated using serial dilators. Subsequently a 8 Spanish all-purpose drainage catheter was advanced into the collectio n using CT guidance. Approximately 15 cc of thick purulent fl uid was obtained. Samples were submitted to microbiology for [facility] er testing. Catheter was anchored to the [...] catheter into the mid abdominal abscess. Signed: Bma Ko MD Report Verified Date/Time: 04/01/2020 1 2:12:30 Reading Location: [address] Reading Room Performing Organization Address City/State/Zipcode Phone Number GE RIS Wound culture + gram stain (03/31/2020 6:04 PM CDT) Result 2+ Lorri albicans (A) [facility] Result 2+ Klebsiella oxytoca (A) [facility] Result 2+ Citrobacter freundii (A) [facility] Gram Stain Result 4+ WBCs [facility] Gram Stain Result <1+ budding yeast [facility] Specimen Wound Organism Antibiotic Method Susceptibility Klebsiella [...] + Sulfamethoxazole <=20: Susceptible Performing Organization Address City/[facility] Corporationcode Phone Number [address] [address] CENTER PT/aPTT (03/31/2020 9:15 AM CDT) Protime 13.5 11.9 - 14.2 seconds [facility] INR 1.06 <=5.90 [facility] PTT 24.2 22.5 - 36.0 seconds [facility] Specimen Blood Narrative Performed At Effective 01/13/2019: PT Reference Range [facility] Change New: 11.9-14.2Previous: 11.7-14.7 RECOMMENDED COUMADIN/WARFARIN INR THERAPY RANGES STANDARD DOSE: 2.0-3.0Includes: PROPHYLAXIS for venous thrombosis, systemic embolization; TREATMENT for venous thrombosis and/or pulmonary embolus. HIGH RISK: Target INR is 2.5-3.5 for patients wiht mechanical heart valves. Performing Organization Address [facility] Corporationcotx Phone Number [address] [address] CENTER Lactic acid, venous (03/31/2020 9:15 AM CDT) Lactate, Venous 1.05 0.50 - 2.20 mmol/L [facility] Specimen Blood Narrative Performed At Mine Wirer ID - MICHELL Manuel [facility] Performing Organization Address City/State/Zipcode Phone Number [address] [phone] CENTER after 05/02/2019 Insurance Payer Benefit Plan / Group Subscriber ID Type Phone A ddress [facility] UNITED MEDICARE HMO xxxxxxxxx MEDICARE MGD CARE [facility] - AARP/MEDICARE xxxxxxxxx MEDICARE MGD CARE COMPLETE CDC REVIEW CDC REVIEW xxxxx[place] [address] [place] [address] [employer] (Home) [address] [place] [address] Advance Directives For more information, please contact:[facility] [place], [place] [phone] Code Status Date Activated Date Inactivated Comments DNAR 04/22/2020 3:00 PM 04/24/2020 11:56 PM This code status was determined by: Patient Has the consent form been signed? No Have you Written ACP Note: No Full Code 04/21/2020 7:03 PM 04/22/2020 3:00 PM This code status was determined by: Patient Partial Code 03/31/2020 10:40 AM 04/05/2020 3:11 PM This code status was determined by: Patient Drug Protocol After Arrest Occurs? No Mechanical Ventilation with Intubation? No Bag/Mask? No Internal/External Pacemaker? No Transfer to Critical Care? Yes Chest Compressions? No Defibrillation/Cardioversion? No Full Code 03/31/2020 10:26 AM 03/31/2020 10:40 AM This code status was determined by: Patient
--- OUTSIDE RECORDS SUMMARY | 2020-05-02 11:48 | XMS REPORT | Continuity of Care Document ---
:1940 Author Organization [facility] t Address [address] [place] [address] [address]. [address] [place] [address] Care Team Providers Name Role Phone KENYON Attending Clinician Unavailable Kenyon VERGARA Attending Clinician Tello Crawford MD Attending Clinician RENETTA LESTER Attending Clinician Unavailable Renetta Lester MD Attending Clinician Ha Mckeon MD Attending Clinician Jos Pearson MD Attending Clinician Tello CRAWFORD Admitting Clinician Unavailable HA MCKEON Admitting Clinician Unavailable Payers Payer Name Policy Type Policy Number Effective Date Expiration Source Date [facility] - xxxxxxxxx [facility]IC[facility] MGD [facility] - CAREUNITED MEDICARE Medic al HMOxxxxxxxxx [facility] REVIEWCDC xxxxxxxx [facility] REVIEWxxxxxxxxPO [facility] [id number] Center Problems Condition Condition Condition Status Onset Resolution Last Treating Co mments Source Name Details Category Date Date Treatment Clinician Date Dehydratio Dehydratio Disease Active [facility] n 04-24 [facility] Medical 00 [place] Elevated Elevated Disease Active [facility] - [facility]: Medical 00 [place] Steroid-in Steroid-in Disease Active [facility] duced duced 9-07 [facility] - hyperglyce hyperglyce 00:00: Me dical claudia claudia 00 Center Meningioma Meningioma Disease Active 2019-[address] 9[facility]07 [facility] - 00:[facility]: Medical 00 [place] 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-04 [facility] - of right of right 00:00: Medica l kidney kidney 00 Center Fatigue Fatigue Disease Active 2019- [facility] - 00[facility]: Medical 00 [place] Hypothyroi Hypothyroi Disease Active 2019-[address] dism dism 04-01 [facility] - 00:[facility]: Medical 00 [place] Diabetes Diabetes Disease Active 2019- [facility] mellitus mellitus 15 [facility] - 00:[facility]: Medical 00 [place] Hypertensi Hypertensi Disease Active 2019-[address] on on 04-01 [facility] - 00:[facility]: Medical 00 [place] 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 04-01 [facility] - 00:00: Medical 00 [place] Diverticul Diverticul Disease Active 2019-[address] itis of itis of 03-31 [facility] - intestine intestine 00:00: Medi last with with 00 Center abscess abscess Allergies, Adverse Reactions, Alerts Allergy Allergy Status Severity Reaction(s) Onset Inactive Treating Comm ents Source Name Type Date Date Clinician Yumikoeriamena Propensi Active Other (See hallucina [facility] to Comments) - tion [facility] - adverse 00:00: Medical reaction 00 [place] Morphine Propensi Active Rash [facility] ty to 8 [facility] - adverse 00:00: Medical reaction 00 [place] s Family History Family Member Diagnosis Comments Start Date Stop Date Source Natural brother Cancer [facility] Natural father Cancer [facility] Natural mother Diabetes [facility] Natural mother Heart disease [facility] Natural sister Breast cancer [facility] Natural sister Cancer [facility] Social History Social Habit Start Date Stop Date Quantity Comments Source History SDOH Alcohol [facility] Std Drinks [facility] History SDOH Alcohol [facility] Binge [facility] Sex Assigned At [facility] History SDOH Alcohol 2020-04-21 2020-04-21 1 [facility] - Frequency 00:00:00 00:00:00 Medical Center Smoking Status Start Date Stop Date Source Never sm[facility] Medications Ordered Filled Start Stop Current Ordering Indication Dosage Frequency Signature Comments Components Source Medication Medication Date Date Medication? Clinician (SIG) Name Name amLODIPine 2019- Yes 5mg QD Take [address] (NORVASC) 5 04-25 tablet (5 Celina kes - MG tablet 00:00: 23:59 mg total) Me dical 00 :00 by mouth Center daily for 30 days. atorvastati 2019- No 1{tbl} QD Take [address] n (LIPITOR) 04-24 tablet by [facility] kes - 80 MG 14:59: 00:00 mouth Medical tablet 28 :00 daily. Center tocilizumab 2019- No 1{dose} Inject [address] (ACTEMRA) 04-24 Dose [facility] - 162 mg/0.9 14:59: 00:00 subcutaneo Medical mL Syrg 28 :00 usly every Center 7 days Friday. insulin 2019- No QD Inject [facility] glargine 04-24 subcutaneo [facility] - (LANTUS) 14:59: 00:00 usly Medical 100 unit/mL 28 :00 nightly Cente r injection Use as directed2- 5 units depending on blood sugar . insulin Yes 6U QD Inject [address] glargine 04-24 Units [facility] - (LANTUS) 00:00: subcutaneo Med ical 100 unit/mL 00 ly Center injection nightly Use as directed2- 5 units depending on blood sugar . needles, Yes 1 box by [facility] insulin 04-24 Miscellane [facility] - disposable 00:00: ous route Me dical (INSULIN 00 4 (four) Center PEN times NEEDLES) daily Ndle before meals and nightly. rosuvastati 2020- Yes 10mg QD Take [address] n (CRESTOR) 04-24 tablet (10 L ukes - 10 MG 00:00: 23:59 mg total) Medica l tablet 00 :00 by mouth Center daily. gabapentin 2020- Yes 100mg QD Take [address] (NEURONTIN) 04-24 capsule [facility] - 100 MG 00:00: 23:59 (100 mg Medical capsule 00 :00 total) by Center mouth nightly. insulin 2020- Yes 0U Inject 0-[address] lispro 04-24 Units [facility] - (HUMALOG) 00:00: 23:59 subcutaneo M edical 100 unit/mL 00 :00 usly 3 Center injection (three) times daily before meals 3 u AC plus this sliding scale insulin. pregabalin 2020- No 1{tbl} QD Take [address] (LYRICA) 50 04-21 tablet by Celina kes - MG capsule 18:58: 00:00 mouth Medic al 10 :00 daily. [place] valACYclovi 2020- No 1{tbl} Take [address] r (VALTREX) 04-21 tablet by Celina kes - 500 MG 18:51: 00:00 mouth as Medica l tablet 46 :00 needed. [place] fluconazole 2020- No 400mg QD Take [address] (DIFLUCAN) 04-06-24 tablets [facility] - 200 MG 00:00: 23:59 (400 mg Medical tablet 00 :00 total) by Center mouth daily for 4 days. levoFLOXaci 2019- No 500mg Q24H Take [address] n 04-06- tablet [facility] - (LEVAQUIN) 00:00: 23:59 (500 [...] 1{tbl} QD Take [address] [facility] fruit 8-14 08-14 tablet by [facility] - (CRANBERRY) 10:26: 00:00 mouth Medi last 450 mg Tab 02 :00 daily. [place] alpha 2019- Yes 1{tbl} QD Take [address] lipoic acid 8-14 tablet by Vikram es - 600 mg Cap 09:07: mouth Medica l 21 daily. [place] calcium 2019-0 Yes 1{tbl} QD Take [address] carbonate-v 8-14 tablet by Vikram es - itamin D3 09:07: mouth Medical (CALCIUM- 21 daily. [place] TAMIN D) 500 mg(1,250mg) -200 unit per tablet nitroglycer 2020-0 Yes 1{tbl} Place [address] in 8-14 tablet [facility] - (NITROSTAT) 09:07: under the M edical 0.4 MG SL 20 tongue as Cente r tablet needed. predniSONE 2019-0 Yes 1{tbl} Q.5D Take [address] (DELTASONE) 8-14 tablet by Vikram es - 20 MG 09:07: mouth 2 Medical tablet 20 (two) Center times daily. cycloSPORIN 2019-0 Yes 1[drp] Place [address] E 8-14 drop into [facility] - (RESTASIS) 09:07: both eyes Me dical 0.05 % 20 as needed. [place] ophthalmic emulsion aspirin 81 2019-0 Yes 1{tbl} QD Take [address] MG EC 8-14 tablet by [facility] - tablet 08:55: mouth Medical 18 daily. [place] furosemide 2019-0 Yes 20mg Take [address] (LASIX) 20 6-17 by mouth [facility] - MG tablet 00:00: as needed. Me dical 00 [place] levothyroxi 2019-0 Yes 1{tbl} QD Take [address] ne 3-20 tablet by [facility] - (SYNTHROID, 00:00: mouth Medic al LEVOTHROID) 00 daily. [place] 75 MCG tablet losartan 2019-0 Yes 1{tbl} QD Take 1 [facility] (COZAAR) 3-20 tablet by [facility] - 100 MG 00:00: mouth Medical tablet 00 daily. [place] diltiazem 2019-0 Yes 1{tbl} QD Take [address] (DILT-XR) 2-11 tablet by [facility] - 180 mg 24 00:00: mouth Medical hr capsule 00 nightly. Cente r sertraline 2017-0 Yes 1{tbl} QD Take [address] (ZOLOFT) 4-18 tablet by [facility] - 100 MG 00:00: mouth Medical tablet 00 daily Noon Center time. Vital Signs Vital Name Observation Time Observation Value Comments Source Systolic blood 2020-04-24 19:26:00 167 mm[Hg] [facility] Diastolic blood 2020-04-24 19:26:00 69 mm[Hg] [facility] Heart rate 2020-04-24 19:26:00 75 /min [facility] Body temperature 2020-04-24 19:26:00 36.72 Dianna [facility] Respiratory rate 2020-04-24 19:26:00 17 /min [facility] Oxygen saturation in 2020-04-24 19:26:00 96 /min [facility] Arterial blood by Medical Ce nter Pulse oximetry Body height 2020-04-21 23:00:00 152.4 cm [facility] Body weight Measured 2020-04-21 23:00:00 59.1 kg [facility] BMI 2020-04-21 23:00:00 25.45 kg/m2 [facility] Procedures Procedure Date / Time Performing Clinician Source Performed RHYTHM STRIP - SCAN 2020-04-26 13:51:12 Provider, Default [facility] POCT-GLUCOSE METER 2020-04-24 16:31:00 Tara Crawfodr [facility] HEPATITIS PANEL, ACUTE 2020-04-24 15:43:00 Tara Crawford [facility] ECHO W/ CONTRAST LIMITED 2020-04-24 14:37:21 Tara Crawford [facility] POCT-GLUCOSE METER 2020-04-24 12:25:00 Tara rCawford [facility] LIPID PANEL 2020-04-24 11:15:00 Tara Crawford [facility] COMPREHENSIVE METABOLIC 2020-04-24 11:15:00 Tara Crawford [facility] POCT-GLUCOSE METER 2020-04-24 07:59:00 Tara Crawford [facility] VITAMIN B12 AND FOLATE 2020-04-24 06:43:00 Tara Crawford [facility] METHYLMALONIC ACID 2020-04-24 06:43:00 Tara Crawford [facility] PROTEIN ELECTROPHORESIS, 2020-04-24 06:43:00 Tara Crawford [facility] FERRITIN 2020-04-24 06:43:00 Tara Crawford [facility] HEMOGLOBIN A1C 2020-04-24 06:43:00 Tara Crawford [facility] TSH/FREE T4 IF INDICATED 2020-04-24 06:43:00 Tara Crawford [facility] POCT-GLUCOSE METER 2020-04-23 23:06:00 Tara Crawford [facility] US ABDOMEN LIMITED 2020-04-23 20:40:00 Tara Crawford [facility] POCT-GLUCOSE METER 2020-04-23 17:29:00 Tara Crawford [facility] MR BRAIN WITH & WITHOUT 2020-04-23 16:50:00 Tara Crawford [facility] IV CONTRAST [facility] CT BRAIN WITHOUT IV 2020-04-23 09:17:00 Tara Crawford [facility] BASIC METABOLIC PANEL (7) 2020-04-23 04:02:00 Tara Crawford [facility] HEPATIC FUNCTION PANEL 2020-04-23 04:02:00 Tara Crawford [facility] CBC W/PLT COUNT & AUTO 2020-04-23 04:02:00 Tara Crawford [facility] POCT-GLUCOSE METER 2020-04-23 03:50:00 Tara Crawford [facility] POCT-GLUCOSE METER 2020-04-22 20:53:00 Tara Crawford [facility] POCT-GLUCOSE METER 2020-04-22 16:06:00 Tara Crawford [facility] POCT-GLUCOSE METER 2020-04-22 12:06:00 Tara Crawford [facility] 2D ECHO MODE W/O DOPPLER 2020-04-22 10:03:04 Tara Crawford [facility] POCT-GLUCOSE METER 2020-04-22 08:28:00 Tara Crawford [facility] BASIC METABOLIC PANEL (7) 2020-04-22 05:22:00 Tara Crawford [facility] HEPATIC FUNCTION PANEL 2020-04-22 05:22:00 Tara Crawford [facility] MAGNESIUM 2020-04-22 05:22:00 Tara Crawford [facility] PHOSPHORUS 2020-04-22 05:22:00 Tara Crawford [facility] CBC W/PLT COUNT & AUTO 2020-04-22 05:22:00 Tara Crawford [facility] SARS-COV2/RT-PCR ([facility] & 2020-04-22 00:49:[address] [facility] REF LABS) [facility] POCT-GLUCOSE METER 2020-04-21 23:29:00 Tara Crawford [facility] BLOOD CULTURE 2020-04-21 21:35:00 Tara Crawford [facility] URINALYSIS W/ MICROSCOPIC 2020-04-21 21:19:00 Tara Crawford [facility] ECG 12-LEAD 2020-04-21 19:42:44 Unknown, Hl7 Doctor [facility] CBC W/PLT COUNT & AUTO 2020-04-05 06:24:00 Ronald Covington [facility] COMPREHENSIVE METABOLIC 2020-04-05 04:25:00 IsacAnibalquincydorys [facility] - PANEL [facility] COMPREHENSIVE METABOLIC 2020-04-04 04:01:00 Isac [facility] COMPREHENSIVE METABOLIC 2020-04-03 04:04:00 sIac [facility] CBC W/PLT COUNT & AUTO 2020-04-03 04:04:00 IsacAnibalquincydorys [facility] - DIFFERENTIAL [facility] COMPREHENSIVE METABOLIC 2020-04-02 04:31:00 IsacAnibalquincydorys [facility] CBC W/PLT COUNT & AUTO 2020-04-02 04:31:00 [facility]OL[facility] 2020-04-01 04:44:00 Harsh [facility] MAGNESIUM 2020-04-01 04:44:00 Harsh [facility] PHOSPHORUS 2020-04-01 04:44:[address] Cristinojuana [facility] CBC W/PLT COUNT & AUTO 2020-04-01 04:44:00 [facility] ANAEROBIC CULTURE 2020-03-31 18:14:00 [facility] FUNGUS CULTURE + SMEAR 2020-03-31 18:14:[address] [facility] DRAINAGE ABDOMINAL 2020-03-31 18:12:00 [facility] WOUND CULTURE + GRAM 2020-03-31 18:04:00 Gómez Lock [facility] PT/APTT 2020-03-31 09:15:00 [facility] 2020-03-31 09:15:00 [facility] LACTIC ACID, VENOUS 2020-03-31 09:15[facility]OL[facility] 2020-03-31 09:15:00 [facility] CBC W/PLT COUNT & AUTO 2020-03-31 09:15:00 [facility] Care Planned Activity Planned Date Details Comments Source Future Scheduled 2021-01-20 Urine screening for [facility] - Test 00:00:00 protein (procedure) [facility] [code = 633069399] Future Scheduled 2020-10-22 Hemoglobin A1c [facility] St Celina kes - Test 00:00:00 measurement [facility] (procedure) [code = 15775583] Future Scheduled 2020-04-18 INFLUENZA VACCINE (#1) [facility] - Test 00:00:00 [code = INFLUENZA Medical Ce nter VACCINE (#1)] Future Scheduled 2019-08-18 Medicare IPPE (WELCOME [facility] - Test 00:00:00 TO MEDICARE) [code = Medical Center Medicare IPPE (WELCOME TO MEDICARE)] Future Scheduled 2006 PNEUMOCOCCAL [address] - Test 00:00:00 LOW/MEDIUM RISK (1 of Medica l Center 2 - PCV13) [code = PNEUMOCOCCAL 65+ LOW/MEDIUM RISK (1 of 2 - PCV13)] Future Scheduled 1950 DIABETIC EYE EXAM [facility] - Test 00:00:00 [code = DIABETIC EYE Medical Center EXAM] Future Scheduled [address] Vikram es - Test 00:00:00 examination Medical Center (regime/therapy) [code = 696141342] Results Test Description Test Time Test Comments Results Result Comments Source Methylmalonic acid 2020-04-27 09:07:00 Test Item Value Reference Range Interpretation Comme nts Methlymalonic Acid,Ser 206 nmol/L 87-318 This test was developed and (test code = 5770026) its an alytical performance characteristics havebeen determined by [facility].It h as not been cleared or appr lenore by FDA. This assay has been validatedpursua nt to the CLIA regulation s and is used for clinical pu rposes. ANGELA (test code = ANGELA) Performing Lab EZ [facility] [address] [place] [address] Shannan Singletary MD, PhD, RICHI [facility] - [facility]ine (Left Venipuncture) 2020-04-26 23:00:00 Test Item Value Reference Range Interpretation Comments Result (test code = No growth in 5 days 6463-4) [facility] [id number] 23:00:00 Test Item Value Reference Range Interpretation Comments CULTURE (BEAKER) (test No growth in 5 days code = 1095) BLOOD [id number] 23:00:00 Test Item Value Reference Range Interpretation Comments CULTURE (BEAKER) (test No growth in 5 days code = 1095) Protein electrophoresis, [id number] 13:55:00 Test Item Value Reference Range Interpretation Comments Albumin Fraction (test 3.0 g/dL 3.5-5.5 L code = 405) Alpha 1 Fraction (test 0.2 g/dL 0.2-0.4 code = 389) Alpha 2 Fraction (test 0.8 g/dL 0.5-0.9 code = 390) Beta Fraction (test code 0.6 g/dL 0.6-1.1 = 392) Gamma Globulin Fraction 0.4 g/dL 0.7-1.7 L (test code = 391) Interpretation (test Pattern suggestive of code = 2615) mild acute inflammation coupled with urine protein loss and/or protein-losing enteropathy. No monoclonal bands detected. Pathologist: (test code Yudith Emanuel, = 2616) (electronic signature) Protein, Total (test 5.0 6.0- 8.3 gm/dL L code = 2660) ANGELA (test code = ANGELA) Biomedical Scientist ID - EVELIA M Lab Interpretation (test Abnormal code = 41799-3) [facility], [id number] 13:55:00 Test Item Value Reference Range Interpretation Comments ALBUMIN FRACTION 3.0 g/dL 3.5-5.5 L (BEAKER) (test code = 405) ALPHA 1 FRACTION 0.2 g/dL 0.2-0.4 (BEAKER) (test code = 389) ALPHA 2 FRACTION 0.8 g/dL 0.5-0.9 (BEAKER) (test code = 390) BETA FRACTION 0.6 g/dL 0.6-1.1 (BEAKER) (test code = 392) GAMMA GLOBULIN 0.4 g/dL 0.7-1.7 L FRACTION (BEAKER) (test code = 391) INTERPRETATION-119 Pattern suggestive of (BEAKER) (test code = mild acute inflammation 2615) coupled with urine protein loss and/or protein-losing enteropathy. No monoclonal bands detected. [id number] Yudith Emanuel MD (BEAKER) (test code = (electronic signature) 2616) PROTEIN TOTAL SERUM, 5.0 gm/dL 6.0-8.3 L SPEP (BEAKER) (test code = 2660) Biomedical Scientist ID - EVELIA MHepatitis panel, [id number] 17:11:00 Test Item Value Reference Range Interpretation Comments Hep A IgM (test code = Nonreactive Nonreactive 44373-5) Hep B C IgM (test code = Nonreactive Nonreactive 49272-2) Hepatitis C Ab (test code = Nonreactive Nonreactive 39857-1) HBsAg Screen (test code = Nonreactive Nonreactive 5195-3) ANGELA (test code = ANGELA) Biomedical Scientist ID - DB Lab Interpretation (test Normal code = 02056-0) [facility]AT[facility] PANEL, [id number] 17:11:00 Test Item Value Reference Range Interpretation Comments HEPATITIS A IGM ANTIBODY (BEAKER) Nonreactive Nonreactive (test code = 498) HEPATITIS B CORE IGM ANTIBODY Nonreactive Nonreactive (BEAKER) (test code = 645) HEPATITIS C ANTIBODY (BEAKER) Nonreactive Nonreactive (test code = 367) HEPATITIS B SURFACE ANTIGEN (2) Nonreactive Nonreactive (BEAKER) (test code = 2585) Biomedical Scientist ID - DBPOC-Glucose [id number] 16:42:00 Test Item Value Reference Range Interpretation Comments POC-Glucose Meter (test 236 mg/dL 70-110 H : TE STED AT [facility] code = 1538) [address] [facility], 770 30: Biomedical Scientist/Techni sebastian ID = [id number] for MatthewsLinda garciasera r Lab Interpretation (test Abnormal code = 53479-3) [facility]POCT-GLUCOSE [id number] 16:42:00 Test Item Value Reference Range Interpretation Comments POC-GLUCOSE METER 236 mg/dL 70-110 H : TESTED A T 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 Full Study performed 04/22/2020. IV saline contrast injection was negative for a PFO (patent foramen ovale) at rest and post Valsalva . Signature Findings Left Ventricle The left ventricle is chamber size (by PSLAX dimension) is normal (female - LVIDd 3.8-5.2cm) . Normal LV wall thickness. All of the LV segments are hyperkinetic . Global LV systolic function hyperdynamic . LVEF by Butts's method of disk assessmentis increased (>70%) . Left Atrium LA size is normal (16-34 ml/m2) . Right Ventricle The right ventricular chamber size and systolic function are within normal limits. Right Atrium RA cavity size is normal . Atrial Septum IV saline contrast injection was negative for a PFO (patent foramen ovale) at rest and post Valsalva . Aortic Valve Mild AoV cusp calcification. Mitral Valve Mild MV leaflet thickening. Mild mitral annular calcification. Tricuspid Valve The tricuspid valve is not well visualized. Pulmonic Valve PV is not well visualized. Pericardium An echo lucent space is noted consistent with prominent pericardial fat pad. No significant pericardial effusion is visualized. IVC/SVC/PA/PV/ Pleural Chambers/Structures Left Atrium LA Dimension: 3.58 cm LA Area: 19.18 cm^2 LA Volume: 50.48 ml LA Vol. Index: 33 ml/m^2 Left Ventricle LVIDd: 4.39 cm LVIDs: 2.11 cm LV SeptumDiastolic: 1.06 cm LV PW Diastolic: 0.99 cm LV FS: 51.9 % LVOT Diameter: 1.94 cm Aorta Ao Root S of Shannon.: 2.85 cm Doppler/Quantitative Measurements LVOT LVOT Diameter: 1.94cm LVOT Area: 2.96 cm^2[facility] 2020-04-24 12:36:00 Test Item Value Reference Range Interpretation Comments POC-GLUCOSE METER 276 mg/dL 70-110 H : TESTED A T [facility] 6720 (BEAKER) (test code = JEANE Noriega [facility], 1538) [address]: Biomedical Scientist/Techni sebastian ID = [id number] for Giulia Wade Hemoglobin [id number] 12:07:00 Test Item Value Reference Range Interpretation Comments Hemoglobin A1C (test code = 4548-4) 8.0 % 4.3-6.1 H Lab Interpretation (test code = Abnormal 98668-9) [facility] HospitalHEMOGLOBIN [id number] 12:07:00 Test Item Value Reference Range Interpretation Comments HEMOGLOBIN A1C (BEAKER) (test code = 8.0 % 4.3-6.1 H 368) Comprehensive metabolic [id number] 11:48:00 Test Item Value Reference Range Interpretation Comments Protein, Total (test 5.6 6.0- 8.3 gm/dL L Speci men code = 2885-2) slightly hemolyzed Albumin (test code = 3.4 g/dL 3.5-5 [place] n 45663-3) slightly hemolyzed Alkaline Phosphatase 79 U/L 40-150 (test code = 6768-6) Total Bilirubin (test 0.8 mg/dL 0.2-1.2 Specim en code = 1974-2) slightly hemolyzed Sodium (test code = 136 meq/L 208-386 1790-2) Potassium (test code 4.5 meq/L 3.5-5.1 Specime n = 2823-3) slightly hemolyzed Chloride (test code = 100 meq/L 98-107 2074-0) CO2 (test code = 31 meq/L 22-29 H 2027-9) BUN (test code = 24 mg/dL 7-21 H 3094-0) Creatinine (test code 0.90 mg/dL 0.57-1.25 Specim en = 2160-0) slightly hemolyzed Glucose (test code = 336 mg/dL 70-105 H 234-7) Calcium (test code = 8.9 mg/dL 8.4-10.2 17634-6) AST (test code = 45 U/L 5-34 H Specimen 192-8) slightly hemolyzed ALT (test code = 120 U/L 6-55 H Specimen 174-6) slightly hemolyzed EGFR (test code = 61 mL/min/1.73 [place] [address]-1) NOT ACCURATE CREATININE CLEARANCE IN PREDICTING GLOMERULAR FILTRATION RATE . ESTIMATED GFR I S NOT APPLICABLE FOR DIALYSIS PATIENTS. ANGELA (test code = ANGELA) Biomedical Scientist ID - SUSI MSpecimen moderately icteric Lab Interpretation Abnormal (test code = 59344-3) [facility] HospitalLipid [id number] 11:48:00 Test Item Value Reference Range Interpretation Comments Triglycerides (test 225 mg/dL Specimen code = 2571-8) slightly hemolyzed Cholesterol (test 241 mg/dL Specimen code = 3-3) slightly hemolyzed HDL (test code = 60 mg/dL 9) LDL Calculated (test 136 mg/dL code = 31090-8) ANGELA (test code = Triglyceride ANGELA) Reference Range: Low Risk <150 Borderline 150-199 High Risk 200-499 Very High Risk >=500 Cholesterol Reference Range: Low Risk <200 Borderline 200-239 High Risk >240 HDL Cholesterol Reference Range: Low Risk >=60 High Risk <40 LDL Cholesterol Reference Range: Optimal <100 Near Optimal 100-129 Borderline 130-159 High 160-189 Very High >=190 Biomedical Scientist ID - SUSI MSpecimen moderately icteric [facility] CenterCOMPREHENSIVE METABOLIC [id number] 11:48:00 Test Item Value Reference Range Interpretation Comments TOTAL PROTEIN 5.6 gm/dL 6.0-8.3 L Specimen sligh tly (BEAKER) (test code = hemoly zed 770) ALBUMIN (BEAKER) 3.4 g/dL 3.5-5.0 L Specimen sl ightly (test code = 1145) hemolyzed ALKALINE PHOSPHATASE 79 U/L 40-150 (BEAKER) (test code = 346) BILIRUBIN TOTAL 0.8 mg/dL 0.2-1.2 Specimen sli ghtly (BEAKER) (test code = hemoly zed 377) SODIUM (BEAKER) (test 136 meq/L 136-145 code = 381) POTASSIUM (BEAKER) 4.5 meq/L 3.5-5.1 Specimen slightly (test code = 379) hemolyzed CHLORIDE (BEAKER) 100 meq/L 98-107 (test code = 382) CO2 (BEAKER) (test 31 meq/L 22-29 H code = 355) BLOOD UREA NITROGEN 24 mg/dL 7-21 H (BEAKER) (test code = 354) CREATININE (BEAKER) 0.90 mg/dL 0.57-1.25 Specimen slightly (test code = 358) hemolyzed GLUCOSE RANDOM 336 mg/dL 70-105 H (BEAKER) (test code = 652) CALCIUM (BEAKER) 8.9 mg/dL 8.4-10.2 (test code = 697) AST (SGOT) (BEAKER) 45 U/L 5-34 H Specimen slightly (test code = 353) hemolyzed ALT (SGPT) (BEAKER) 120 U/L 6-55 H Specimen slightly (test code = 347) hemolyzed EGFR (BEAKER) (test 61 mL/min/1.73 ESTIMA JENNY GFR IS code = 1092) sq m NOT ACCURATE CREATININE CLEARANCE IN PREDICTING GLOMERULAR FILTRATION RATE . ESTIMATED GFR I S NOT APPLICABLE FOR DIALYSIS PATIEN TS. Biomedical Scientist ID Juan A GOLDMAN MSpecimen moderately ictericLIPID [id number] 11:48:00 Test Item Value Reference Range Interpretation Comments TRIGLYCERIDES (BEAKER) 225 mg/dL Speci men slightly (test code = 540) hemolyzed CHOLESTEROL (BEAKER) 241 mg/dL Specime n slightly (test code = 631) hemolyzed HDL CHOLESTEROL (BEAKER) 60 mg/dL (test code = 976) LDL CHOLESTEROL 136 mg/dL CALCULATED (AKER) (test code = 633) Triglyceride Reference Range: Low Risk <150 Borderline 150-199 High Risk 200-499 Very High Risk >=500Cholesterol Reference Range: Low Risk <200 Borderline 200-239 High Risk >240HDL Cholesterol Reference Range: Low Risk >=60 High Risk <40LDL Cholesterol Reference Range: Optimal <100 Near Optimal 100-129 Borderline 130-159 High 160-189 Very High >=190 Biomedical Scientist ID - SUSI MSpecimen moderately ictericTSH/Free T4 If [id number] 10:29:00 Test Item Value Reference Range Interpretation Comments TSH (test code = 3.805 0.350- 4.940 uIU/mL 52165-4) ANGELA (test code = ANGELA) Biomedical Scientist ID - AAHAMID Lab Interpretation (test Normal code = 77460-9) [facility] HospitalTSH/FREE T4 IF [id number] 10:29:00 Test Item Value Reference Range Interpretation Comments THYROID STIMULATING HORMONE 3.805 uIU/mL 0.350-4.940 (BEAKER) (test code = 772) Biomedical Scientist ID - [id number] 09:30:00 Test Item Value Reference Range Interpretation Comments Ferritin (test code = 292.76 ng/mL 5-275 H 2276-4) ANGELA (test code = ANGELA) Biomedical Scientist ID - AAHAMID Lab Interpretation (test Abnormal code = 78668-3) [facility] HospitalVitamin B12 and [id number] 09:30:00 Test Item Value Reference Range Interpretation Comments Vitamin B12 (test code = 1155 pg/mL 213-816 H 2132-9) Folate (test code = 8.50 ng/mL >=7.00 2284-8) ANGELA (test code = ANGELA) Biomedical Scientist ID - AAHAMID Lab Interpretation (test Abnormal code = 94113-9) [facility] HospitalFERRITIN2020 09:30:00 Test Item Value Reference Range Interpretation Comments FERRITIN (BEAKER) (test code = 292.76 ng/mL 5.00-275.00 H 361) Biomedical Scientist ID - AAHAMIDVITAMIN B12 AND [id number] 09:30:00 Test Item Value Reference Range Interpretation Comments VITAMIN B12 (BEAKER) (test code = 1155 pg/mL 213-816 H 774) FOLATE (BEAKER) (test code = 362) 8.50 ng/mL >=7.00 Biomedical Scientist ID - AAHAMIDPOCT-GLUCOSE [id number] 08:10:00 Test Item Value Reference Range Interpretation Comments POC-GLUCOSE METER 197 mg/dL 70-110 H : TESTED A T [facility] 6720 (BEAKER) (test code = JEANE [place], 1538) [address]: Biomedical Scientist/Techni sebastian ID = [id number] for Fl Giulia mckee MR, BRAIN, [id number] 02:52:00Unlisted Reason for Exam - Click Yes and Enter Reason Below->NoFINAL REPORT MRI Brain with and without contrast CLINICAL HISTORY: Brain massor lesion, follow-up Technique: MRI of the brain utilizing axial T1, T2, FLAIR, GRE, DWI, sagittal T1; and postgadolinium axial, sagittal, and coronal T1-weighted images. Comparisons: CT head 04/23/2020 Findings: Posterior fossa dural based extra-axial enhancing lesion along the inferior aspect of the right tentorial leaflet measuring 1.7 x 1.5 x 1.1 cm appears calcified on comparison CT. There is compression of the right transverse sinus which enhances homogeneously elsewhere on postcontrast images. Suspect venous collaterals along the superior margin of the right transverse sinus. No pathologic intra-axial enhancement. Nonspecific T2 FLAIR hyperintensities typical of chronic microangiopathy ischemic changes present.. Left temporal lobe periventricular 3 mm DWI/T2 FLAIR hyperintensity. No hydrocephalus or acute intracranial hemorrhage. Orbits, globes and paranasal sinuses are unremarkable. Trace mastoid effusions. No destructive osseous lesion. Expected flow voids at the skull base are present. IMPRESSION:Left temporal lobe periventricular 3 mm acute lacunar infarct. Right tentorial leaflet extra-axial 1.7 x 1.5 x 1.7 cm calcified enhancing lesion consistent with a meningioma. The lesion compresses/invades of the right transverse sinus which remains patent likely due to collateral veins. Signed: Rao Torre MDReport Verified Date/Time: 04/24/2020 02:52:33 MR brain without & with IV [id number] 02:52:00Interface, External Ris In - 04/24/2020 2:54 AM CDTFINAL REPORT MRI Brain with and without contrast CLINICAL HISTORY: Brain mass or lesion, follow-up Technique: MRI of the brain utilizing axial T1, T2, FLAIR, GRE, DWI, sagittal T1; and postgadolinium axial, sagittal, and coronal T1-weighted images. Comparisons: CT head 04/23/2020 Findings: Posterior fossa dural based extra-axialenhancing lesion along the inferior aspect of the right tentorial leaflet measuring 1.7 x 1.5 x 1.1 cm appears calcified on comparison CT. There is compression of the right transverse sinus which enhances homogeneously elsewhere on postcontrast images. Suspect venous collaterals along the superior margin of the right transverse sinus. No pathologic intra-axial enhancement. Nonspecific T2 FLAIR hyperintensities typical of chronic microangiopathy ischemic changes present.. Left temporal lobe periventricular 3 mm DWI/T2 FLAIR hyperintensity. No hydrocephalus or acute intracranial hemorrhage. Orbits, globes and paranasal sinuses are unremarkable. Trace mastoid effusions. No destructive osseous lesion.Expected flow voids at the skull base are present. IMPRESSION:Left temporal lobe periventricular 3 mm acute lacunar infarct. Right tentorial leaflet extra-axial 1.7 x 1.5 x 1.7 cm calcified enhancing lesion consistent with a meningioma. The lesion compresses/invades of the right transverse sinus whichremains patent likely due to collateral veins. Signed: Rao Torre MDReport Verified Date/Time: 04/24/2020 02:52:33 [facility] CenterU[facility], [facility] 2020-04-23 23:25:00Abdomen limited area? Add comment if clarification is needed.->LiverReason for exam:->elevatedlftsFINAL REPORT U/S, ABDOMINAL, LIMITED CLINICAL HISTORY: elevated lfts Comparison: None Technique: Real-time transabdominal ultrasound of the right upper quadrant abdomen was performed. Liver: 10.3 cm, No acute findings. No focal lesion. Echotexture is homogeneous. Gallbladder:Not visualized. Biliary tree: No intrahepatic ductal dilatation. CBD: 0.4 cm. Pancreas: Not well-seen. Right kidney: Status post right nephrectomy. No ascites is present in the abdomen. Partially seen aorta is unremarkable. Impression: No acute findings. Cholecystectomy and right nephrectomy. . Signed: Rao Torreeport Verified Date/Time: 04/23/2020 23:25:58 US abdomen [id number] 23:25:00 Interface, External Ris In - 04/23/2020 11:29 PM CDTFINAL REPORT U/S, ABDOMINAL, LIMITED CLINICAL HISTORY: elevated lfts Comparison: None Technique: Real-time transabdominal ultrasound of the right upper quadrant abdomen was performed. Liver: 10.3 cm, No acute findings. No focal lesion. Echotexture is homogeneous. Gallbladder: Not visualized. Biliary tree: No intrahepatic ductal dilatation. CBD: 0.4 cm. Pancreas: Not well-seen. Right kidney: Status post right nephrectomy.No ascites is present in the abdomen. Partially seen aorta is unremarkable. Impression: No acute findings. Cholecystectomy and right nephrectomy. . Signed: Rao Torre Verified Date/Time: 04/23/2020 23:25:58 [facility]PO[facility] [id number] 23:17:00 Test Item Value Reference Range Interpretation Comments POC-GLUCOSE METER 206 mg/dL 70-110 H : TESTED A T [facility] 6720 (BEAKER) (test code = JEANE Noriega [place], 1538) [address]: Biomedical Scientist/Techni sebastian ID = [id number] for LAVONNE MUSTAFA POCT-GLUCOSE [id number] 17:40:00 Test Item Value Reference Range Interpretation Comments POC-GLUCOSE METER 249 mg/dL 70-110 H : Notified RN/: (JOEYSONYA) (test code = TESTED AT [facility] 6720 1538) [facility], [address]: Biomedical Scientist/Techni sebastian ID = [id number] for Jazmin Sandoval CT, BRAIN, WITHOUT [id number] 10:32:00Unlisted Reason for Exam - Click Yes and Enter Reason Below->YesUnlisted Reason for Exam->fatigue with uncontrolled hypertensionFINAL REPORT CT, BRAIN, WITHOUT CONTRAST INDICATION: Unlisted Reason for Examfatigue with uncontrolled hypertension TECHNIQUE: Noncontrast axial imaging was obtained from the vertex to the skull base. Axial images were reconstructed using a bone algorithm. DOSE REDUCTION: Dose modulation, iterative reconstruction, and/or weight-based adjustment of the mA/kV was utilized to reduce the radiation dose to as low as reasonably achievable. COMPARISON: None. FINDINGS: Intracranial: There is a 1.4 x 2 x 1.3 cm densely calcified lesion along the inferior aspect of the right tentorial leaflet and abutting the inner table of the posterior fossa. It may be extending into the right transverse sinus. There appears to be mild adjacent parenchymal edema. No significant mass effect. No intracranial hemorrhage or abnormal extra-axial collection. No evidence of acute territorial infarct. No hydrocephalus. Generalized cerebral atrophy with ex vacuo dilatation of the ventricular system proportionate to sulci. Scattered foci of hypoattenuation within the periventricular and subcortical whitematter are a nonspecific finding commonly attributed to chronic small vessel ischemic disease. Osseous structures: No fracture. No suspicious lesion. Paranasal sinuses and mastoid air cells: No evidence of sinusitis. Mastoids are clear. Orbital contents: Globes are intact. IMPRESSION: Densely calcified right posterior fossa lesion, possibly extending into the transverse sinus. MRI with and without contrast is recommended for further evaluation. Signed: Stephanie Rangel MDReport Verified Date/Time: 04/23/2020 10:32:40 CT brain without IV [id number] 10:32:00Interface, External Ris In - 04/23/2020 10:[address], BRAIN, WITHOUT CONTRAST INDICATION: Unlisted Reason for Examfatigue with uncontrolled hypertension TECHNIQUE:Noncontrast axial imaging was obtained from the vertex to the skull base. Axial images were reconstructed using a bone algorithm. DOSE REDUCTION: Dose modulation, iterative reconstruction, and/or weight-based adjustment of the mA/kV was utilized to reduce the radiation dose to as low as reasonably achievable. COMPARISON: None. FINDINGS: Intracranial: There is a 1.4 x 2 x 1.3 cm densely calcified lesion along the inferior aspect of the right tentorial leaflet and abutting the inner table of the posterior fossa. It may be extending into the right transverse sinus. There appears to be mild adjacent parenchymal edema. No significant mass effect. No intracranial hemorrhage or abnormal extra-axial collection. No evidence of acute territorial infarct. No hydrocephalus. Generalized cerebral atrophy withex vacuo dilatation of the ventricular system proportionate to sulci. Scattered foci of hypoattenuation within the periventricular and subcortical white matter are a nonspecific finding commonly attributed to chronic small vessel ischemic disease. Osseous structures: No fracture. No suspicious lesion.Paranasal sinuses and mastoid air cells: No evidence of sinusitis. Mastoids are clear. Orbital contents: Globes are intact. IMPRESSION: Densely calcified right posterior fossa lesion, possibly extending into the transverse sinus. MRI with and without contrast is recommended for further evaluation. Signed: Stephanie Rangel MDReport Verified Date/Time: 04/23/2020 10:32:40 [facility] CenterCB with platelet count + automated diff 2020-04-23 05:31:00 Test Item Value Reference Range Interpretation Comments WBC (test code = 6690-2) 10.4 3.5- 10.5 K/L RBC (test code = 789-8) 4.20 3.93- 5.22 M/L MCHC (test code = 786-4) 32.1 32.2- 35.5 GM/DL L Hematocrit (test code = 4544-3) 38.9 % 34.1-44.9 MCV (test code = 787-2) 92.6 fL 79.4-94.8 MCH (test code = 785-6) 29.8 pg 25.6-32.2 RDW (test code = 788-0) 14.7 % 11.7-14.4 H Platelets (test code = 777-3) 100 150- 450 K/CU MM L MPV (test code = 05981-9) 11.2 fL 9.4-12.3 nRBC (test code = 413) 0 0- 0 /100 WBC % Neutros (test code = 429) 86 % % Lymphs (test code = 430) 8 % % Monos (test code = 431) 5 % % Eos (test code = 432) 0 % % Baso (test code = 437) 0 % # Neutros (test code = 670) 8.91 1.56- 6.13 K/L H # Lymphs (test code = 414) 0.78 1.18- 3.74 K/L L # Monos (test code = 415) 0.56 0.24- 0.36 K/L H # Eos (test code = 416) 0.01 0.04- 0.36 K/L L # Baso (test code = 417) 0.01 0.01- 0.08 K/L Immature Granulocytes-Relative 1 % 0-1 (test code = 2801) Lab Interpretation (test code = Abnormal 54279-3) [facility] W/PLT COUNT & AUTO [id number] 05:31:00 Test Item Value Reference Range Interpretation Comments WHITE BLOOD CELL COUNT (BEAKER) 10.4 K/ L 3.5-10.5 (test code = 775) RED BLOOD CELL COUNT (BEAKER) 4.20 M/ L 3.93-5.22 (test code = 761) HEMOGLOBIN (BEAKER) (test code = 12.5 GM/DL 11.2-15.7 410) HEMATOCRIT (BEAKER) (test code = 38.9 % 34.1-44.9 411) MEAN CORPUSCULAR VOLUME (BEAKER) 92.6 fL 79.4-94.8 (test code = 753) MEAN CORPUSCULAR HEMOGLOBIN 29.8 pg 25.6-32.2 (BEAKER) (test code = 751) MEAN CORPUSCULAR HEMOGLOBIN CONC 32.1 GM/DL 32.2-35.5 L (BEAKER) (test code = 752) RED CELL DISTRIBUTION WIDTH 14.7 % 11.7-14.4 H (BEAKER) (test code = 412) PLATELET COUNT (BEAKER) (test 100 K/CU MM 150-450 L code = 756) MEAN PLATELET VOLUME (BEAKER) 11.2 fL 9.4-12.3 (test code = 754) NUCLEATED RED BLOOD CELLS 0 /100 WBC 0-0 (BEAKER) (test code = 413) NEUTROPHILS RELATIVE PERCENT 86 % (BEAKER) (test code = 429) LYMPHOCYTES RELATIVE PERCENT 8 % (BEAKER) (test code = 430) MONOCYTES RELATIVE PERCENT 5 % (BEAKER) (test code = 431) EOSINOPHILS RELATIVE PERCENT 0 % (BEAKER) (test code = 432) BASOPHILS RELATIVE PERCENT 0 % (BEAKER) (test code = 437) NEUTROPHILS ABSOLUTE COUNT 8.91 K/ L 1.56-6.13 H (BEAKER) (test code = 670) LYMPHOCYTES ABSOLUTE COUNT 0.78 K/ L 1.18-3.74 L (BEAKER) (test code = 414) MONOCYTES ABSOLUTE COUNT (BEAKER) 0.56 K/ L 0.24-0.36 H (test code = 415) EOSINOPHILS ABSOLUTE COUNT 0.01 K/ L 0.04-0.36 L (BEAKER) (test code = 416) BASOPHILS ABSOLUTE COUNT (BEAKER) 0.01 K/ L 0.01-0.08 (test code = 417) IMMATURE GRANULOCYTES-RELATIVE 1 % 0-1 PERCENT (BEAKER) (test code = 2801) Basic Metabolic [id number] 05:03:00 Test Item Value Reference Range Interpretation Comments Sodium (test code = 137 meq/L 867-136 6746-2) Potassium (test code 4.2 meq/L 3.5-5.1 Specime n = 2823-3) moderately hemolyzed Chloride (test code = 106 meq/L 98-107 2075-0) CO2 (test code = 24 meq/L 22-29 8-9) BUN (test code = 20 mg/dL 7-21 3094-0) Creatinine (test code 0.80 mg/dL 0.57-1.25 Specim en = 2160-0) moderately hemolyzed Glucose (test code = 193 mg/dL 70-105 H 2345-7) Calcium (test code = 8.0 mg/dL 8.4-10.2 L 76777-3) EGFR (test code = 69 mL/min/1.73 sq [place] [address]-3) NOT ACCURATE CREATININE CLEARANCE IN PREDICTING GLOMERULAR FILTRATION RATE . ESTIMATED GFR I S NOT APPLICABLE FOR DIALYSIS PATIENTS. ANGELA (test code = ANGELA) Biomedical Scientist ID Juan A ALTAMIRANO MSpecimen moderately icteric Lab Interpretation Abnormal (test code = 71212-7) [facility] HospitalHepatic function [id number] 05:03:00 Test Item Value Reference Range Interpretation Comments Protein, Total (test 4.9 6.0- 8.3 gm/dL L Speci men code = 2885-2) moderately hemolyzed Albumin (test code = 2.9 g/dL 3.5-5 L Specime n 52971-9) moderately hemolyzed Total Bilirubin (test 0.6 mg/dL 0.2-1.2 Specim en code = 1975-2) moderately hemolyzed Bilirubin, Direct 0.2 mg/dL 0.1-0.5 Specimen (test code = 1968-7) moderat danial hemolyzed Alkaline Phosphatase 61 U/L 40-150 (test code = 6768-6) AST (test code = 43 U/L 5-34 H Specimen 1920-8) moderately hemolyzed ALT (test code = 90 U/L 6-55 H Specimen 1742-6) moderately hemolyzed ANGELA (test code = ANGELA) Biomedical Scientist ID Juan A ALTAMIRANO MSpecimen moderately icteric Lab Interpretation Abnormal (test code = 79791-7) [facility] HospitalBASIC METABOLIC [id number] 05:03:00 Test Item Value Reference Range Interpretation Comments SODIUM (BEAKER) 137 meq/L 136-145 (test code = 381) POTASSIUM (BEAKER) 4.2 meq/L 3.5-5.1 Specimen moderately (test code = 379) hemolyzed CHLORIDE (BEAKER) 106 meq/L 98-107 (test code = 382) CO2 (BEAKER) (test 24 meq/L 22-29 code = 355) BLOOD UREA NITROGEN 20 mg/dL 7-21 (BEAKER) (test code = 354) CREATININE (BEAKER) 0.80 mg/dL 0.57-1.25 Specimen moderately (test code = 358) hemolyzed GLUCOSE RANDOM 193 mg/dL 70-105 H (BEAKER) (test code = 652) CALCIUM (BEAKER) 8.0 mg/dL 8.4-10.2 L (test code = 697) EGFR (BEAKER) (test 69 mL/min/1.73 ESTIMA JENNY GFR IS code = 1092) sq m NOT ACCURATE CREATININE CLEARANCE IN PREDICTING GLOMERULAR FILTRATION RATE . ESTIMATED GFR I S NOT APPLICABLE FOR DIALYSIS PATIEN TS. Biomedical Scientist ID - EVELIA MSpecimen moderately ictericHEPATIC FUNCTION [id number] 05:03:00 Test Item Value Reference Range Interpretation Comments TOTAL PROTEIN (BEAKER) 4.9 gm/dL 6.0-8.3 L Speci men moderately (test code = 770) hemolyzed ALBUMIN (BEAKER) (test 2.9 g/dL 3.5-5.0 L Speci men moderately code = 1145) hemolyzed BILIRUBIN TOTAL 0.6 mg/dL 0.2-1.2 Specimen mod erately (BEAKER) (test code = hemoly zed 377) BILIRUBIN DIRECT 0.2 mg/dL 0.1-0.5 Specimen mo derately (BEAKER) (test code = hemoly zed 706) ALKALINE PHOSPHATASE 61 U/L 40-150 (BEAKER) (test code = 346) AST (SGOT) (BEAKER) 43 U/L 5-34 H Specimen moderately (test code = 353) hemolyzed ALT (SGPT) (BEAKER) 90 U/L 6-55 H Specimen moderately (test code = 347) hemolyzed Biomedical Scientist ID - EVELIA MSpecimen moderately ictericPOCT-GLUCOSE [id number] 04:01:00 Test Item Value Reference Range Interpretation Comments POC-GLUCOSE METER 193 mg/dL 70-110 H : TESTED A T [facility] 6720 (BEAKER) (test code [facility], = 1538) [address]: Biomedical Scientist/Techni sebastian ID = [id number] for RUSSELL , ESME POCT-GLUCOSE [id number] 21:04:00 Test Item Value Reference Range Interpretation Comments POC-GLUCOSE METER 198 mg/dL 70-110 H : TESTED A T [facility] 6720 (BEAKER) (test code = JEANE Noriega [facility], 1538) [address]: Biomedical Scientist/Techni sebastian ID = [id number] for Alla Molina ECG 12 [id number] 18:07:00Interface, External Ris In - 04/22/2020 6:07 PM CDTVentricular Rate 54 BPMAtrial Rate 54 BPMP-R Interval 174 msQRS Duration 82 msQ-T Interval 442 msQTC Calculation(Radha) 419 msP Runnells 35 degreesR Runnells 7 degreesT Runnells 69 degreesSinus bradycardiaOtherwise normal ECGNo previous ECGs availableConfirmed by MD Dexter, Valentino ([id number]) on 04/22/2020 6:06:55 PM [facility] W/O Doppler(No Doppler)2020-04-22 16:55:47 Ejection FractionSLEH ECHO HEARTLAB GAUTAM CPACSInterface, External Ris In - 04/22/2020 4:55 PM CDTTransthoracic Echocardiography Report (TTE) Demographics Patient Name TUNDE WELLER Date of Study 04/22/2020 DARRION Gender Female Visit Number [id number] Race Unknown Room Number 1550 Number Date of 1940 Referring Fco Monte Physician Age 79 year(s) [employer]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 All of the LV segmentsare hyperkinetic . Global LV systolic function hyperdynamic . LVEF by Butts's method of disk assessment is increased (>70%) . Intracavitary gradient at rest is 25mmHg and with Valsalva maneuver [id number]. Grade 1 diastolic dysfunction (impaired relaxation and low-normal LA pressure). Unable to estimate peak systolic PA pressure; inadequate TR velocity signal. Previous Study No prior studies available for comparison. Signature Findings Left Ventricle The left ventricle is chamber size (by PSLAX dimension) is normal (female - LVIDd 3.8-5.2cm) . Normal LV wall thickness. All of the LV segments are hyperkinetic . Global LV systolic function hyperdynamic . LVEF by Butts's method of disk assessment is increased (>70%) . Intracavitary gradient at rest is 25mmHg and with Valsalva maneuver is 35mmHg.Grade 1 diastolic dysfunction (impaired relaxation and low-normal LA pressure). Left Atrium LA size is mildly enlarged (35-41 ml/m2) . Right Ventricle The right ventricular chamber size and systolic function are within normal limits. Right Atrium RA cavity size is normal . Aortic Valve Mild AoV cusp calcification. Mitral Valve Mild MV leaflet thickening. Mild mitral annular calcification. Tricuspid Valve Unable to estimate peak systolic PA pressure; inadequate TR velocity signal. Pulmonic Valve Mild pulmonary regurgitation. Normal PV structure and function by limited views and Doppler. Aorta Aortic root size (SInus of Valsalva diameter) is normal . Proximal ascending aorta size is normal . Pericardium An echo lucent space is noted consistent with prominent pericardial fat pad. No significant pericardial effusion is visualized. IVC/SVC/PA/PV/Pleural The right upper pulmonary vein (RUPV) is normal . The estimated RA pressure by IVC dynamics 5-10mmHg . Chambers/Structures Left Atrium LA Volume: 53.8 ml LA Area: 18.88 cm^2 LA Vol. Index: 35 ml/m^2 Left Ventricle LVIDd: 4.66 cm LV Septum Diastolic: 1.11 cm LV PW Diastolic:1.07 cm LVEDV Butts's:51.7 ml LVESV Butts's:15.4 ml LVEF Butts's: 70.2 %LVEDVI: 33 ml/m^2 LVESVI: 10 ml/m^2 LVOT Diameter: 2.07cm Right Ventricle TAPSE: 1.72 cm Aorta Ao Root S of Shannon.: 2.7 cmAscending Aorta: 3.27 cm Doppler/Quantitative Measurements Mitral Valve MV Peak E-Wave: 0.82 m/s MV Peak A-Wave: 1.4 m/s E/A Ratio: 0.59 Peak Gradient: 2.69 mmHg DecelerationTime: 443.2 msec MV Andrew. Peak: Tissue Doppler E' Septal Velocity: 0.06 m/s E/E': 14.67 E' Lateral Velocity: 0.06 m/s Aortic Valve Peak Velocity: 2.22 m/s Mean Velocity: 1.3 m/s Peak Gradient: 19.74 mmHg Mean Gradient: 8.32 mmHg AV Area (continuity): 2.08 cm^2 AV VTI: 42.37 cm AV DVI: 0.62 LVOT Peak Velocity: 1.38 m/s Peak Gradient: 7.59 mmHg Mean Velocity: 0.99 m/s Mean Gradient: 4.49 mmHg LVOT Diameter: 2.07 cm LVOT VTI: 26.25 cm LVOT Area: 3.37 cm^2 LVOT SV:88.3 ml LVOT CO: 5.65 l/min LVOT CI: 3.65 l/min/m^2[facility] CenterPOCT-GLUCOSE [id number] 16:17:00 Test Item Value Reference Range Interpretation Comments POC-GLUCOSE METER 266 mg/dL 70-110 H : TESTED A T [facility] [address] ([place]) (test code = JEANE KESSLER, 1538) [address]: Biomedical Scientist/Techni sebastian ID = [id number] for BRUCE DUMONT SARS-CoV2/RT-PCR (Asymptomatic ONLY)2020-04-22 14:59:00 Test Item Value Reference Range Interpretation Comments SARS-COV2/RT-PCR Negative Not Detected, (test code = Negative, See 64420-7) external report for linked test SARS-COV-2 [facility] PERFORMING LAB (test code = 52851-8) ANGELA (test code = Negative result for this ANGELA) test determines that SARS-CoV-2 RNA was not present in the specimen above the Limit of Detection (LOD). However, Negative results do not preclude SARS-CoV-2 infection and should not be used as the sole basis for treatment or patient management decisions. Negative results must be combined with clinical observations, patient history, and epidemiological information. A false negative result may occur if a specimen is improperly collected, transported or handled. A false negative result should be considered if patient's recent exposures or clinical presentation indicate that COVID-19 (SARS-CoV-2) is likely and diagnostic tests for other causes of illness are negative. Re-testing should be considered in cases of suspected [...] Food and Drug Administration (FDA) cleared or approved. This is a modified version of an approved [...] of the Act. Fact Sheet for Healthcare Providers:https://www.[employer] idel.[employer]ugo/sites/default/f adrian/product/documents/F act_Sheet_HC_Providers_L hrx_VVYU-XvF-8.pdf Fact Sheet for Healthcare Patients:https://www.[employer] del.Jugo/sites/default/fi les/product/documents/Fa ct_Sheet_Patients_Lyra_S ARS-CoV-2.pdf Performing Laboratory:[facility] [place] [address] [facility] ([facility])2020-04-22 14:59:00 Test Item Value Reference Range Interpretation Comments SARS-COV2/RT-PCR (test Negative Not Detected, Negative, code = 7319736) See external report for linked test SARS-COV-[address] [facility] (test code = 4614322) Negative result for this test determines that SARS-CoV-2 RNA was not present in the specimen above the Limit of Detection (LOD). However, Negative results do not preclude SARS-CoV-2 infection and should not be used as the sole basis for treatment or patient management decisions. Negative results mustbe combined with clinical observations, patient history, and epidemiological information. A false negative result may occur if a specimen is improperly collected, transported or handled. A false negative result should be considered if patient's recent exposures or clinical presentation indicate that COVID-19 (SARS-CoV-2) is likely and diagnostic tests for other causes of illness are negative. Re-testing should be considered in cases of suspected false negatives.The limit of detection for this assay is 800 copies/mL.This SARS CoV-2 test is a real-time RT-PCR test intended for the qualitative detection of nucleic acid from SARS-CoV-2 in a nasopharyngeal swab specimen collected from individuals susp ected of COVID-19 by their healthcare provider.This test has not been Food and Drug Administration (FDA) cleared or approved. This is a modified version of an approved [...] is revoked under Section 564(g) of the Act.Fact Sheet for Healthcare Providers:https://www.[employer].com/sites/default/files/product/documents/Fact_Shee r_EV_Wwfgbuuzl_Pdmd_EBMP-SgH-2.pdfFact Sheet for Healthcare Patients:https://www.[employer].com/sites/default/files/product/ documents/Jvcw_Dcxyw_Thoyfhrq_Kogo_YBQC-YvH-9.pdfPerforming Laboratory:[facility], [place] [address]GTOA-BIDJOVD METER 2020-04-22 12:21:00 Test Item Value Reference Range Interpretation Comments POC-GLUCOSE METER 210 mg/dL 70-110 H : TESTED A T [facility] [address] (BEAKER) (test code = JEANE Noriega [place], 1538) [address]: Biomedical Scientist/Techni sebastian ID = [id number] for BRUCE DUMONT [id number] 11:00:00 Test Item Value Reference Range Interpretation Comments Magnesium (test code = 1.9 mg/dL 1.6-2.6 69652-7) ANGELA (test code = ANGELA) Biomedical Scientist ID - EVELIA M Lab Interpretation (test Normal code = 43557-6) [facility]00 Test Item Value Reference Range Interpretation Comments Phosphorus (test code = 3.1 mg/dL 2.3-4.7 2777-1) ANGELA (test code = ANGELA) Biomedical Scientist ID - EVELIA M Lab Interpretation (test Normal code = 19740-3) [facility]2020-[facility] 11:00:00 Test Item Value Reference Range Interpretation Comments PHOSPHORUS (BEAKER) (test code = 3.1 mg/dL 2.3-4.7 604) Biomedical Scientist ID - EVELIA [id number] 11:00:00 Test Item Value Reference Range Interpretation Comments MAGNESIUM (BEAKER) (test code = 1.9 mg/dL 1.6-2.6 627) Biomedical Scientist ID - EVELIA MBASIC METABOLIC [id number] 11:00:00 Test Item Value Reference Range Interpretation Comments SODIUM (BEAKER) 137 meq/L 136-145 (test code = 381) POTASSIUM (BEAKER) 4.0 meq/L 3.5-5.1 (test code = 379) CHLORIDE (BEAKER) 105 meq/L 98-107 (test code = 382) CO2 (BEAKER) (test 21 meq/L 22-29 L code = 355) BLOOD UREA NITROGEN 21 mg/dL 7-21 (BEAKER) (test code = 354) CREATININE (BEAKER) 0.82 mg/dL 0.57-1.25 (test code = 358) GLUCOSE RANDOM 225 mg/dL 70-105 H (BEAKER) (test code = 652) CALCIUM (BEAKER) 8.5 mg/dL 8.4-10.2 (test code = 697) EGFR (BEAKER) (test 67 mL/min/1.73 ESTIMA JENNY GFR IS code = 1092) sq m NOT ACCURATE CREATININE CLEARANCE IN PREDICTING GLOMERULAR FILTRATION RATE . ESTIMATED GFR I S NOT APPLICABLE FOR DIALYSIS PATIEN TS. Biomedical Scientist ID - EVELIA Giovanniecimen moderately ictericHEPATIC FUNCTION [id number] 11:00:00 Test Item Value Reference Range Interpretation Comments TOTAL PROTEIN (BEAKER) (test code = 5.7 gm/dL 6.0-8.3 L 770) ALBUMIN (BEAKER) (test code = 1145) 3.4 g/dL 3.5-5.0 L BILIRUBIN TOTAL (BEAKER) (test code 0.9 mg/dL 0.2-1.2 = 377) BILIRUBIN DIRECT (BEAKER) (test 0.5 mg/dL 0.1-0.5 code = 706) ALKALINE PHOSPHATASE (BEAKER) (test 74 U/L 40-150 code = 346) AST (SGOT) (BEAKER) (test code = 51 U/L 5-34 H 353) ALT (SGPT) (BEAKER) (test code = 112 U/L 6-55 H 347) Biomedical Scientist ID Juan A [facility] moderately ictericPOCT-GLUCOSE [id number] 08:40:00 Test Item Value Reference Range Interpretation Comments POC-GLUCOSE METER 187 mg/dL 70-110 H : TESTED A T [facility] [address] (BEAKER) (test code = JEANE [place], 1538) [address]: Biomedical Scientist/Techni sebastian ID = [id number] for BRUCE DUMONT CBC W/PLT COUNT & AUTO [id number] 07:04:00 Test Item Value Reference Range Interpretation Comments WHITE BLOOD CELL COUNT (BEAKER) 14.9 K/ L 3.5-10.5 H (test code = 775) RED BLOOD CELL COUNT (BEAKER) 4.82 M/ L 3.93-5.22 (test code = 761) HEMOGLOBIN (BEAKER) (test code = 14.6 GM/DL 11.2-15.7 410) HEMATOCRIT (BEAKER) (test code = 44.4 % 34.1-44.9 411) MEAN CORPUSCULAR VOLUME (BEAKER) 92.1 fL 79.4-94.8 (test code = 753) MEAN CORPUSCULAR HEMOGLOBIN 30.3 pg 25.6-32.2 (BEAKER) (test code = 751) MEAN CORPUSCULAR HEMOGLOBIN CONC 32.9 GM/DL 32.2-35.5 (BEAKER) (test code = 752) RED CELL DISTRIBUTION WIDTH 14.6 % 11.7-14.4 H (BEAKER) (test code = 412) PLATELET COUNT (BEAKER) (test 133 K/CU MM 150-450 L code = 756) MEAN PLATELET VOLUME (BEAKER) 10.8 fL 9.4-12.3 (test code = 754) NUCLEATED RED BLOOD CELLS 0 /100 WBC 0-0 (BEAKER) (test code = 413) NEUTROPHILS RELATIVE PERCENT 87 % (BEAKER) (test code = 429) LYMPHOCYTES RELATIVE PERCENT 8 % (BEAKER) (test code = 430) MONOCYTES RELATIVE PERCENT 3 % (BEAKER) (test code = 431) EOSINOPHILS RELATIVE PERCENT 0 % (BEAKER) (test code = 432) BASOPHILS RELATIVE PERCENT 0 % (BEAKER) (test code = 437) NEUTROPHILS ABSOLUTE COUNT 12.92 K/ L 1.56-6.13 H (BEAKER) (test code = 670) LYMPHOCYTES ABSOLUTE COUNT 1.20 K/ L 1.18-3.74 (BEAKER) (test code = 414) MONOCYTES ABSOLUTE COUNT (BEAKER) 0.46 K/ L 0.24-0.36 H (test code = 415) EOSINOPHILS ABSOLUTE COUNT 0.00 K/ L 0.04-0.36 L (BEAKER) (test code = 416) BASOPHILS ABSOLUTE COUNT (BEAKER) 0.02 K/ L 0.01-0.08 (test code = 417) IMMATURE GRANULOCYTES-RELATIVE 2 % 0-1 H PERCENT (BEAKER) (test code = 2801) POCT-GLUCOSE [id number] 23:41:00 Test Item Value Reference Range Interpretation Comments POC-GLUCOSE METER 211 mg/dL 70-110 H : TESTED A T [facility] 67[address] (BEAKER) (test code = JEANE [place], 1538) [address]: Biomedical Scientist/Techni sebastian ID = [id number] for SHABBIR BEAN Urinalysis w/[id number] 21:58:00 Test Item Value Reference Range Interpretation Comments Color, UA (test code = Light Yellow 5778-6) Clarity, UA (test code = Clear 5767-9) Specific [place], UA (test 1.029 1.001-1.035 code = 5811-5) pH, UA (test code = 6.0 5.0-8.0 5803-2) Protein, UA (test code = Negative Negative 89006-1) Glucose, UA (test code = 30 mg/dL Negative A 365) Ketones, UA (test code = Negative Negative 2514-8) Bilirubin, UA (test code = Negative Negative 26262-4) Blood, UA (test code = Negative Negative 07265-5) Nitrite, UA (test code = Negative Negative 5802-4) Leukocytes, UA (test code Trace Negative A = 5799-2) Urobilinogen, UA (test 0.2 mg/dL 0.2-1 code = 44885-9) RBC, UA (test code = 1 /HPF 91994-4) WBC, UA (test code = 3 /HPF 5821-4) Squam Epithel, UA (test <1 /HPF code = 91956-2) Specimen Source (test code = 2795) ANGELA (test code = ANGELA) Biomedical Scientist ID - [auto]Biomedical Scientist ID - steve Lab Interpretation (test Abnormal code = 82701-4) [facility]/ [id number] 21:58:00 Test Item Value Reference Range Interpretation Comments COLOR (BEAKER) (test code = 470) Light Yellow CLARITY (BEAKER) (test code = Clear 469) SPECIFIC GRAVITY UA (BEAKER) 1.029 1.001-1.035 (test code = 468) PH UA (BEAKER) (test code = 467) 6.0 5.0-8.0 PROTEIN UA (BEAKER) (test code = Negative Negative 464) GLUCOSE UA (BEAKER) (test code = 30 mg/dL Negative A 365) KETONES UA (BEAKER) (test code = Negative Negative 371) BILIRUBIN UA (BEAKER) (test code Negative Negative = 462) BLOOD UA (BEAKER) (test code = Negative Negative 461) NITRITE UA (BEAKER) (test code = Negative Negative 465) LEUKOCYTE ESTERASE UA (BEAKER) Trace Negative A (test code = 466) UROBILINOGEN UA (BEAKER) (test 0.2 mg/dL 0.2-1.0 code = 463) RBC UA (BEAKER) (test code = 1 /HPF 519) WBC UA (BEAKER) (test code = 3 /HPF 520) SQUAMOUS EPITHELIAL (BEAKER) < /HPF (test code = 516) SOURCE(BEAKER) (test code = 2795) Biomedical Scientist ID - [auto]Biomedical Scientist ID - hankFungus culture + [id number] 18:07:00 Test Item Value Reference Range Interpretation Comments Result (test code = 3+ Lorri albicans A 6463-4) Fungus Smear (test code = No fungi seen 1406) Lab Interpretation (test Abnormal code = 65615-3) [facility] + [id number] 18:07:00 Test Item Value Reference Range Interpretation Comments CULTURE (BEAKER) A 3+ Lorri albicans (test code = 1095) FUNGUS SMEAR No fungi seen (BEAKER) (test code = 1406) Anaerobic [id number] 18:52:00 Test Item Value Reference Range Interpretation Comments Result (test code = No anaerobes isolated 6463-4) [facility]ANAEROBIC [id number] 18:52:00 Test Item Value Reference Range Interpretation Comments CULTURE (BEAKER) (test No anaerobes isolated code = 1095) CBC W/PLT COUNT & AUTO [id number] 06:39:00 Test Item Value Reference Range Interpretation [...] (BEAKER) (test code = 2801) COMPREHENSIVE METABOLIC [id number] 06:17:00 Test Item Value Reference Range Interpretation [...] S NOT APPLICABLE FOR DIALYSIS PATIEN TS. Biomedical Scientist ID - EVELIA OMPREHENSIVE METABOLIC [id number] 05:24:00 Test Item Value Reference Range Interpretation [...] S NOT APPLICABLE FOR DIALYSIS PATIEN TS. Biomedical Scientist ID - EDASIWOUND CULTURE + GRAM [id number] 10:29:00 Test Item Value Reference Range Interpretation [...] <1+ budding yeast (BEAKER) (test code = 872226) CBC W/PLT COUNT & AUTO [id number] 05:33:00 Test Item Value Reference Range Interpretation [...] (BEAKER) (test code = 2801) COMPREHENSIVE METABOLIC [id number] 05:08:00 Test Item Value Reference Range Interpretation [...] S NOT APPLICABLE FOR DIALYSIS PATIEN TS. Biomedical Scientist ID - EDASISpecimen slightly ictericCOMPREHENSIVE METABOLIC PANEL [...] S NOT APPLICABLE FOR DIALYSIS PATIEN TS. Biomedical Scientist ID - PIAYA LSpecimen slightly ictericCBC W/PLT COUNT & AUTO [id number] 05:03:00 Test Item Value Reference Range Interpretation [...] (BEAKER) (test code = 2801) CT, DRAINAGE, [id number] 12:12:00Reason for exam:->Diverticulitis with increasing size of abscessFINAL REPORT PROCEDURE: CT, DRAINAGE, ABDOMINAL DOSE REDUCTION: The examination was performed according to departmental dose-optimization program which includes automated exposure control, adjustment of the mA and/or kV according to patient size and/or use of iterative reconstruction technique. HISTORY: Diverticulitis with increasing size of abscess Biomedical Scientist: Bma Ko MD Moderate sedation: See nursing medication [...] dilated using serial dilators. Subsequently a 8 Filipino all-purpose drainage catheter was advanced into the [...] the mid abdominal abscess. Signed: Bam Ko MDReport Verified Date/Time: 04/01/2020 12:12:30 Reading Location: [address] Transitional Reading Room CT drainage [id number] 12:12:00Interface, External Ris In - 04/01/2020 12:14 PM CDTFINAL REPORT PROCEDURE: CT, DRAINAGE, ABDOMINAL DOSE REDUCTION: The examination was performed according to departmental dose-optimization program which includes automated exposure control, adjustment of the mA and/or kV according to patient size and/or use of iterative reconstruction technique. HISTORY: Diverticulitis with increasing size of abscess Biomedical Scientist: Bam Ko MD Moderate sedation: See nursing [...] dilated using serial dilators. Subsequently a 8 Filipino all-purpose drainage catheter was advanced into the [...] the mid abdominal abscess. Signed: Bam Ko MDReport Verified Date/Time: 04/01/2020 12:12:30 Reading Location: [address] Transitional Reading Room Electronicallysigned by: BAM KO MD on 04/01/2020 12:12 [facility] W/PLT COUNT & AUTO [id number] 06:34:00 Test Item Value Reference Range Interpretation [...] % 0-1 PERCENT (BEAKER) (test code = 2806) [id number] 06:33:00 Test Item Value Reference Range Interpretation Comments MAGNESIUM (BEAKER) 2.0 mg/dL 1.6-2.6 Specimen slightly (test code = 627) hemolyzed Biomedical Scientist ID - EVELIA [id number] 06:33:00 Test Item Value Reference Range Interpretation Comments PHOSPHORUS (BEAKER) 2.0 mg/dL 2.3-4.7 L Specimen slightly (test code = 604) hemolyzed Biomedical Scientist ID - EVELIA MCOMPREHENSIVE METABOLIC [id number] 06:33:00 Test Item Value Reference Range Interpretation [...] S NOT APPLICABLE FOR DIALYSIS PATIEN TS. Biomedical Scientist ID - EVELIA MSpecimen slightly ictericCOMPREHENSIVE METABOLIC [...] S NOT APPLICABLE FOR DIALYSIS PATIEN TS. Biomedical Scientist ID - AUG CSpecimen slightly [id number] 09:49:00 Test Item Value Reference Range Interpretation Comments MAGNESIUM (BEAKER) (test code = 2.1 mg/dL 1.6-2.6 627) Biomedical Scientist ID - AUG CLactic acid, [id number] 09:45:00 Test Item Value Reference Range Interpretation Comments Lactate, Venous (test code 1.05 mmol/L 0.5-2.2 = 2872) ANGELA (test code = ANGELA) Biomedical Scientist ID - AUG C Lab Interpretation (test Normal code = 74581-2) [facility] HospitalLACTIC ACID, [id number] 09:45:00 Test Item Value Reference Range Interpretation Comments LACTATE BLOOD VENOUS (2) (BEAKER) 1.05 mmol/L 0.50-2.20 (test code = 2872) Biomedical Scientist ID - MICHELL CPT/[id number] 09:35:00 Test Item Value Reference Range Interpretation Comments Protime (test code = 13.5 11.9- 14.2 5902-2) seconds INR (test code = 1.06 <=5.90 6301-6) PTT (test code = 24.2 22.5- 36.0 46299-5) seconds ANGELA (test code = ANGELA) Effective 01/13/2019: PT Reference Range ChangeNew: 11.9-14.2 Previous: 11.7-14.7 RECOMMENDED COUMADIN/WARFARIN INR THERAPY RANGESSTANDARD DOSE: 2.0-3.0 Includes: PROPHYLAXIS for venous thrombosis, systemic embolization; TREATMENT for venous thrombosis and/or pulmonary embolus.HIGH RISK: Target INR is 2.5-3.5 for patients wiht mechanical heart valves. Lab Interpretation Normal (test code = 22618-0) [facility]/[id number] 09:35:00 Test Item Value Reference Range Interpretation [...] mechanical heart valves.CBC W/PLT COUNT & AUTO [id number] 09:26:00 Test Item Value Reference Range Interpretation [...] % 0-1 PERCENT (BEAKER) (test code = 0738)
[2020-05-02 12:52] LABS: Absolute Lymphocytes (CBC) 0.8 K/uL (0.7-4.9); Basophils % 0.2 % (0-1.3); Hematocrit 40.9 % (36.0-45.0); Lymphocytes % 9.1 % (15.3-44.8); MPV 8.7 fL (7.6-11.3); RBC Red Blood Cell Count 4.53 M/uL (3.86-4.86)
[2020-05-02 12:53] LABS: Protime INR 0.88
[2020-05-02] MEDS ORDERED: NA CHLORIDE 0.9% 1,000 ML ONE (12:59)
[2020-05-02] MEDS ORDERED: ONDANSETRON 4 MG/2 ML VIAL ONE (12:59)
[2020-05-02] MEDS ORDERED: FENTANYL CITR 100 MCG/2 ML ONE ×2 (12:59→16:52)
[2020-05-02] MEDS ORDERED: NA CHLORIDE 0.9% 500 ML ONE (12:59)
[2020-05-02 13:10] LABS: Albumin 3.2 g/dL (3.4-5.0); Bilirubin Direct 0.3 mg/dL (0-0.2); Bilirubin Total 0.8 mg/dL (0.2-1.0); Magnesium 2.2 mg/dL (1.8-2.4); Protein, Total 5.6 g/dL (6.4-8.2); Troponin (Emerg Dept Use Only) 0.06 ng/mL (0.0-0.045)
[2020-05-02 13:17] LABS: Urine Blood NEGATIVE (NEG); Urine Glucose NEGATIVE (NEG); Urine Protein NEGATIVE (NEG); Urine Specific Gravity 1.015 (1.005-1.030)
--- NOTE | 2020-05-02 13:37 | RAD REPORT ---
EXAM DESCRIPTION: RAD - Chest Single View - 05/02/2020 1:06 pm CLINICAL HISTORY: ABDOMINAL DISTENTION COMPARISON: Portable chest March 30 TECHNIQUE: AP portable chest image was obtained 05/02/2020 1:06 pm . FINDINGS: No focal lung parenchymal process. No failure or volume overload. Interstitial pattern is similar to comparison. Small Bochdalek's hernia in the medial left base is again noted. Heart and vas culature are normal. No measurable pleural effusion and no pneumothorax. No acute bony abnormality se en. No acute aortic findings suspected. IMPRESSION: No acute cardiopulmonary process. No significant change from March 30 chest examination.
[2020-05-02] MEDS ORDERED: KCL 20 MEQ/100 mL IVPB 20 MEQ/100 ML BAG IV ONE (14:06)
--- NOTE | 2020-05-02 15:04 | RAD REPORT ---
EXAM DESCRIPTION: CT - Abdomen Pelvis W Contrast - 05/02/2020 2:29 pm CLINICAL HISTORY: diarrhea;Abd pain, history of recent hospitalization for rupture diverticulitis wi th abscess COMPARISON: Abdomen Pelvis W Contrast dated 04/21/2020 TECHNIQUE: Biphasic, helical CT imaging of the abdomen and pelvis was performed following 100 ml non -ionic IV contrast. Oral contrast was given. All CT scans are performed using dose optimization technique as appropriate and may include automated exposure control or mA/KV adjustment according to patient size. FINDINGS: No suspicious findings in the lung bases. The liver, spleen, and pancreas show no suspicious findings. Gallbladder is absent. Biliary tree is m ildly prominent but still within range of normal and similar to the comparison. Normal left renal function is identified with no hydronephrosis, mass, pyelonephritis or other acute finding. Right kidney is absent. Right flank hernia is present with the liver extending through the d efect. This is a stable presentation. No acute urinary bladder finding. Numerous bladder diverticulum noted. No bladder stone or mass. No adrenal abnormalities. Surgical changes are present near the GE junction of the stomach. A small Bochdalek's type fat only h ernia is seen in the medial lower left lung field. No gastric wall thickening or mass. No dilated sma ll bowel loops. Patient has a prominent diverticulosis pattern. A 2.6 centimeter oval fluid or low-at tenuation mass is present in the central peritoneal cavity. This was present on the April 21 study . Size is not significantly different. There is less stranding around this focal collection. There is a thickened appearance to the barreto of the colon from the cecum to the hepatic flexure. Patient has diverticulosis in this region. Terminal ileum and ileocecal valve are unremarkable. No measurable str anding or edema in the adjacent fat. Wall thickening may be due to incomplete distension by the oral contrast. A mild right-sided colitis or minimal typhlitis would be possible. No new or suspicious int raperitoneal fluid collection. No free air or pneumatosis. No new mass or bulky lymphadenopathy. Uterus is absent. Pelvic floor laxity noted. No new bone finding since prior imaging. IMPRESSION: Patient has a thickened nodular appearance to the right-side colon from cecum to hepatic flexure. This is in part due to incomplete distension from the oral contrast. A mild right-sided colitis or typhlitis is suspected. C difficile colitis is not suspected based on imaging. Patient has left-sided diverticulosis with no new or progressive diverticulitis findings. A very smal l fluid collection in the central abdomen is still present. There is less stranding around this small fluid collection.
--- NOTE | 2020-05-02 16:01 | ER ---
Nurse's Notes [facility] Name: Radha Ocampo Age: 79 yrs Sex: Female : 1940 Arrival Date: 05/02/2020 Time: 11:46 Bed 23 Private MD: Toby Parks V Diagnosis: Left sided colitis with other complication-with central fluid collection;Abdominal tenderness-mild right sided colitis;Diarrhea, unspecified;Hypokalemia;Diverticular disease of intestine-colon Presentation: 05/02 11:54 Chief complaint: Patient states: Bad diarrhea since 1 am. History of the same, just ll1 released from [facility] after diverticula rupture with abdominal abscess. Coronavirus screen: Client denies travel out of the [place] in the last 14 days. At this time, the client does not indicate any symptoms associated with coronavirus-19. The client reports previous COVID testing was negative. Ebola Screen: Patient denies travel to an Ebola-affected area in the 21 days before illness onset. Initial Sepsis Screen: Does the patient meet any 2 criteria? No. Patient's initial sepsis screen is negative. Risk Assessment: Do you want to hurt yourself or someone else? Patient reports no desire to harm self or others. Onset of symptoms was May 02, 2020. 11:54 Acuity: CIARA 3 ll1 11:54 Method Of Arrival: Wheelchair ll1 20:46 Initial Sepsis Screen: Does the patient have a suspected source of infection? No. ll2 Patient's initial sepsis screen is negative. Historical: - Allergies: 11:53 meperidine HCl (rash); ll1 11:53 Morphine; ll1 - PMHx: 11:53 ADD/ADHD; Hypertension; Hyperlipidemia; renal cell carcinoma; Myocardial infarction; DM ll1 chemical induced; renal cell carcinoma contained; Hypothyroidism; Giant Cell Arthritis; Depression; giant cell arteritis; stage 3 kidney failure; - PSHx: 11:53 abdominal diverticuli with abscess; ll1 - Immunization history:: Flu vaccine is up to date. - Social history:: Smoking status: Patient denies any tobacco usage or history of. Patient/guardian denies using alcohol, street drugs. - Family history:: not pertinent. Screenin:58 Abuse screen: Denies threats or abuse. Nutritional screening: No deficits noted. ll2 Tuberculosis screening: No symptoms or risk factors identified. 13:24 Fall Risk IV access (20 points). Ambulatory Aid- None/Bed Rest/Nurse Assist (0 pts). ll2 Gait- Normal/Bed Rest/Wheelchair (0 pts) Mental Status- Oriented to own ability (0 pts). Total [place] Fall Scale indicates No Risk (0-24 pts). Assessment: 12:23 General: Appears in no apparent distress. Behavior is calm, cooperative, appropriate ll2 for age. Pain: Complains of pain in right lower quadrant and left lower quadrant Pain does not radiate. Pain currently is 7 out of 10 on a pain scale. Quality of pain is described as crampy, pressure, Pain began about 3 months ago Is episodic, Also complains of diarrhea. Neuro: Level of Consciousness is awake, alert, obeys commands, Oriented to person, place, time, situation. Cardiovascular: Capillary refill < 3 seconds Patient's skin is warm and dry. Respiratory: Airway is patent Respiratory effort is even, unlabored, Respiratory pattern is regular, symmetrical. GI: Last BM at 12:25. Bowel sounds present X 4 quads. hyperactive in right upper quadrant, left upper quadrant, right lower quadrant and left lower quadrant Reports lower abdominal pain, diarrhea. : Denies burning with urination, urinary frequency, urgency. EENT: No signs and/or symptoms were reported regarding the EENT system. Derm: Skin is intact, is fragile, Skin is dry, Skin is pink, warm \T\ dry. Bruising that is dark purple. Musculoskeletal: Circulation, motion, and sensation intact. Range of motion: intact in all extremities. 12:49 Reassessment: CT notified of pt finishing PO contrast. jd3 13:35 Reassessment: Patient and/or family updated on plan of care and expected duration. Pain ll2 level reassessed. Patient is alert, oriented x 3, equal unlabored respirations, skin warm/dry/pink. pt is resting comfortably waiting to go to CT. Patient denies pain at this time. 14:41 Reassessment: Patient and/or family updated on plan of care and expected duration. Pain ll2 level reassessed. Patient is alert, oriented x 3, equal unlabored respirations, skin warm/dry/pink. returned from CT scan, fluids still running through IV site. 15:34 Reassessment: pt is sleeping comfortably in bed. ll2 16:37 Reassessment: Patient and/or family updated on plan of care and expected duration. Pain ll2 level reassessed. Patient is alert, oriented x 3, equal unlabored respirations, skin warm/dry/pink. pt requested more pain medicine, ERD notified, verbal order obtained. 17:30 Reassessment: pt resting comfortably, ERD notified pt of transfer. ll2 18:22 Reassessment: attempted to give report to admitting facility, instructed to call back ll2 after shift change. 18:46 Reassessment: assessed pts low pulse of 49, pt is resting comfortably with no SOB or ll2 difficulty breathing, will continue to monitor. 19:06 Reassessment: aided pt ambulate to commode, no BM still. ll2 19:10 Reassessment: pt updated on delay of transfer. ll2 19:11 Reassessment: pulse increased to 56. ll2 19:54 Reassessment: report given to receiving nurse Henok and pt consent obtained. ll2 Vital Signs: 11:54 BP 127 / 53; Pulse 64; Resp 17; Temp 97.4; Pulse Ox 100% ; Weight 60.78 kg; Height 5 ll1 ft. (152.40 cm); Pain 6/10; 12:28 BP 123 / 59; Pulse 73; Resp 17; Temp 98; Pulse Ox 98% on R/A; Pain 7/10; ll2 13:25 BP 172 / 59; Pulse 51; Resp 14; Pulse Ox 98% on R/A; ll2 14:25 BP 164 / 79; Pulse 58; Resp 14; Pulse Ox 98% on R/A; ll2 15:35 BP 124 / 71; Pulse 51; Resp 13; Pulse Ox 100% on R/A; ll2 16:33 BP 157 / 54; Pulse 53; Resp 15; Pulse Ox 100% on R/A; ll2 17:38 BP 158 / 68; Pulse 50; Resp 15; Pulse Ox 99% on R/A; ll2 18:45 BP 159 / 60; Pulse 49; Resp 14; Pulse Ox 99% on R/A; ll2 19:49 BP 140 / 52; Pulse 50; Resp 17; Pulse Ox 99% on R/A; ll2 11:54 Body Mass Index 26.17 (60.78 kg, 152.40 cm) ll1 ED Course: 11:46 Patient arrived in ED. as 11:46 Toby Parks MD is Private Physician. as 11:53 New Shen MD is Attending Physician. cheri 11:53 Arm band placed on Patient placed in an exam room, on a stretcher. ll1 11:55 Triage completed. ll1 12:08 Patient has correct armband on for positive identification. Placed in gown. Bed in low ll2 position. Call light in reach. Side rails up X 1. threat monitoring analyst on. Pulse ox on. NIBP on. 12:23 Janki Roe, CONCETTA is Primary Nurse. ll2 12:28 Warm blanket given. ll2 12:45 Inserted saline lock: 20 gauge in right antecubital area, using aseptic technique. mt Blood collected. 12:45 EKG done, by ED staff, reviewed by New Shen MD. mt 13:06 XRAY Chest (1 view) In Process Unspecified. EDMS 14:30 CT Abd/Pelvis - PO and IV Contrast In Process Unspecified. EDMS 17:[address] New Shen, pt accepted at [facility] by dr Mita Wood, admin approval given by Liliana Saleh RN. 20:44 No provider procedures requiring assistance completed. Maintain EMS IV. Dressing ll2 intact. Good blood return noted. Site clean \T\ dry. Gauge \T\ site: 20 G right AC. 20:48 Patient transferred, IV remains in place. intact, bleeding controlled, No ll2 redness/swelling at site. Pressure dressing applied. Administered Medications: 12:53 Drug: NS 0.9% 500 ml Route: IV; Rate: bolus; Site: right antecubital; ll2 13:23 Follow up: Response: No adverse reaction ll2 16:59 Follow up: Response: No adverse reaction; IV Status: Completed infusion ll2 13:02 Drug: NS 0.9% 1000 ml Route: IV; Rate: 125 ml/hr; Site: right antecubital; ll2 13:23 Follow up: Response: No adverse reaction ll2 20:47 Follow up: Response: No adverse reaction; IV Status: Infusion continued upon transfer ll2 13:02 Drug: Zofran (Ondansetron) 4 mg Route: IVP; Site: right antecubital; ll2 13:23 Follow up: Response: No adverse reaction ll2 13:02 Drug: fentaNYL (PF) 25 mcg Route: IVP; Site: right antecubital; ll2 13:23 Follow up: Response: No adverse reaction; Pain is decreased; RASS: Alert and Calm (0) ll2 14:05 Drug: Potassium Chloride 20 mEq Route: IV; Rate: per protocol; Site: right antecubital; jd3 16:58 Follow up: Response: No adverse reaction; IV Status: Completed infusion ll2 16:30 Drug: Flagyl 500 mg Volume: 100 ml; Route: IVPB; Rate: 200 ml/hr; Infused Over: 30 ll2 mins; Site: right antecubital; 16:58 Follow up: Response: No adverse reaction; IV Status: Completed infusion ll2 16:30 Drug: Pepcid 20 mg Route: IVP; Site: right antecubital; ll2 16:33 Follow up: Response: No adverse reaction ll2 16:58 Follow up: Response: No adverse reaction ll2 16:31 Drug: Cipro 400 mg Volume: 200 ml; Route: IVPB; Infused Over: 60 mins; Site: right ll2 antecubital; 17:44 Follow up: Response: No adverse reaction; IV Status: Completed infusion ll2 16:42 Drug: fentaNYL (PF) 25 mcg Route: IVP; Site: right antecubital; ll2 16:51 Follow up: Response: No adverse reaction; Pain is decreased; RASS: Alert and Calm (0) ll2 Outcome: 16:01 ER care complete, transfer ordered by MD. alonzo 20:44 Transferred by ground EMS to other acute care facility: [place], [place]. ll2 Transfer form completed. 20:45 Discharge instructions given to EMS. ll2 20:45 Condition: stable ll2 20:46 Patient left the ED. ll2 Signatures: Dispatcher [employer] EDMS Manasa Parry Corey, MD MD cha Martinez, Genie Thomas, Hermes Howard mt, RN RN jd3 Janki Roe RN RN ll2 Margarita Felipe RN RN ll1 Corrections: (The following items were deleted from the chart) 19:11 19:09 Reassessment: assessed pts low pulse of 49, pt is resting comfortably with no SOB ll2 or difficulty breathing, will continue to monitor. ll2
--- NOTE | 2020-05-02 16:02 | EDPHYS ---
Physician Documentation [facility] Name: Radha Ocampo Age: 79 yrs Sex: Female : 1940 Arrival Date: 05/02/2020 Time: 11:46 Bed 23 Private MD: Toby Parks V ED Physician New Shen HPI: 05/02 12:32 This 79 yrs old Female presents to ER via Wheelchair with complaints of cheri Diarrhea. 12:32 The patient presents to the emergency department with diarrhea, abdominal pain, of the cheri right upper quadrant, left upper quadrant, right lower quadrant and left lower quadrant. Onset: The symptoms/episode began/occurred 5 day(s) ago. Possible causes: unknown. The symptoms are aggravated by nothing. The symptoms are alleviated by nothing. Associated signs and symptoms: The patient has no apparent associated signs or symptoms. Severity of symptoms: At their worst the symptoms were mild moderate in the emergency department the symptoms are unchanged. The patient has not experienced similar symptoms in the past. Historical: - Allergies: 11:53 meperidine HCl (rash); ll1 11:53 Morphine; ll1 - PMHx: 11:53 ADD/ADHD; Hypertension; Hyperlipidemia; renal cell carcinoma; Myocardial infarction; DM ll1 chemical induced; renal cell carcinoma contained; Hypothyroidism; Giant Cell Arthritis; Depression; giant cell arteritis; stage 3 kidney failure; - PSHx: 11:53 abdominal diverticuli with abscess; ll1 - Immunization history:: Flu vaccine is up to date. - Social history:: Smoking status: Patient denies any tobacco usage or history of. Patient/guardian denies using alcohol, street drugs. - Family history:: not pertinent. ROS: 12:32 Constitutional: Negative for fever, chills, and weight loss, Eyes: Negative for injury, cheri pain, redness, and discharge, ENT: Negative for injury, pain, and discharge, Neck: Negative for injury, pain, and swelling, Cardiovascular: Negative for chest pain, palpitations, and edema, Respiratory: Negative for shortness of breath, cough, wheezing, and pleuritic chest pain, Back: Negative for injury and pain, : Negative for injury, bleeding, discharge, and swelling, MS/Extremity: Negative for injury and deformity, Skin: Negative for injury, rash, and discoloration, Neuro: Negative for headache, weakness, numbness, tingling, and seizure, Psych: Negative for depression, anxiety, suicide ideation, homicidal ideation, and hallucinations, Allergy/Immunology: Negative for hives, rash, and allergies, Endocrine: Negative for neck swelling, polydipsia, polyuria, polyphagia, and marked weight changes, Hematologic/Lymphatic: Negative for swollen nodes, abnormal bleeding, and unusual bruising. 12:32 Abdomen/GI: Positive for abdominal pain, diarrhea, of the right upper quadrant, left upper quadrant, right lower quadrant and left lower quadrant. Exam: 12:32 Constitutional: This is a well developed, well nourished patient who is awake, alert, cheri and in no acute distress. Head/Face: Normocephalic, atraumatic. Eyes: Pupils equal round and reactive to light, extra-ocular motions intact. Lids and lashes normal. Conjunctiva and sclera are non-icteric and not injected. Cornea within normal limits. Periorbital areas with no swelling, redness, or edema. ENT: Nares patent. No nasal discharge, no septal abnormalities noted. Tympanic membranes are normal and external auditory canals are clear. Oropharynx with no redness, swelling, or masses, exudates, or evidence of obstruction, uvula midline. Mucous membranes moist. Neck: Trachea midline, no thyromegaly or masses palpated, and no cervical lymphadenopathy. Supple, full range of motion without nuchal rigidity, or vertebral point tenderness. No Meningismus. Chest/axilla: Normal chest wall appearance and motion. Nontender with no deformity. No lesions are appreciated. Cardiovascular: Regular rate and rhythm with a normal S1 and S2. No gallops, murmurs, or rubs. Normal PMI, no JVD. No pulse deficits. Respiratory: Lungs have equal breath sounds bilaterally, clear to auscultation and percussion. No rales, rhonchi or wheezes noted. No increased work of breathing, no retractions or nasal flaring. Back: No spinal tenderness. No costovertebral tenderness. Full range of motion. Female : Normal external genitalia. Skin: Warm, dry with normal turgor. Normal color with no rashes, no lesions, and no evidence of cellulitis. MS/ Extremity: Pulses equal, no cyanosis. Neurovascular intact. Full, normal range of motion. Neuro: Awake and alert, GCS 15, oriented to person, place, time, and situation. Cranial nerves II-XII grossly intact. Motor strength 5/5 in all extremities. Sensory grossly intact. Cerebellar exam normal. Normal gait. Psych: Awake, alert, with orientation to person, place and time. Behavior, mood, and affect are within normal limits. 12:32 Abdomen/GI: Inspection: abdomen appears normal, Bowel sounds: normal, Palpation: mild abdominal tenderness, in all quadrants, Liver: no appreciated palpable abnormalities, Hernia: not appreciated. 13:49 ECG was reviewed by the Attending Physician. [facility] Vital Signs: 11:54 BP 127 / 53; Pulse 64; Resp 17; Temp 97.4; Pulse Ox 100% ; Weight 60.78 kg; Height 5 ll1 ft. (152.40 cm); Pain 6/10; 12:28 BP 123 / 59; Pulse 73; Resp 17; Temp 98; Pulse Ox 98% on R/A; Pain 7/10; ll2 13:25 BP 172 / 59; Pulse 51; Resp 14; Pulse Ox 98% on R/A; ll2 14:25 BP 164 / 79; Pulse 58; Resp 14; Pulse Ox 98% on R/A; ll2 15:35 BP 124 / 71; Pulse 51; Resp 13; Pulse Ox 100% on R/A; ll2 16:33 BP 157 / 54; Pulse 53; Resp 15; Pulse Ox 100% on R/A; ll2 17:38 BP 158 / 68; Pulse 50; Resp 15; Pulse Ox 99% on R/A; ll2 18:45 BP 159 / 60; Pulse 49; Resp 14; Pulse Ox 99% on R/A; ll2 19:49 BP 140 / 52; Pulse 50; Resp 17; Pulse Ox 99% on R/A; ll2 11:54 Body Mass Index 26.17 (60.78 kg, 152.40 cm) ll1 MDM: 11:53 Patient medically screened. [facility] 12:34 Data reviewed: vital signs, nurses notes, lab test result(s), EKG, radiologic studies, [facility] CT scan, plain films. 12:35 Differential diagnosis: Nonspecific abd pain, gastritis, diverticulitis, viral [facility] gastroenteritis, gastroenteritis. Data interpreted: field nurse case manager: rate is 73 beats/min, rhythm is regular, Pulse oximetry: on room air 98L(s) per nasal canula. Test interpretation: by ED physician or midlevel provider: ECG, plain radiologic studies. Counseling: I had a detailed discussion with the patient and/or guardian regarding: the historical points, exam findings, and any diagnostic results supporting the discharge/admit diagnosis, lab results, radiology results, the need for outpatient follow up. Medication response: Zofran partially relieved the patient's nausea. 05/02 12:32 Order name: Basic Metabolic Panel; Complete Time: 13:30 [facility] 05/02 12:32 Order name: CBC with Diff; Complete Time: 13:30 [facility] 05/02 12:32 Order name: LFT's; Complete Time: 13:30 [facility] 05/02 12:32 Order name: Magnesium; Complete Time: 13:30 [facility] 05/02 12:32 Order name: NT PRO-BNP; Complete Time: 13:30 [facility] 05/02 12:32 Order name: PT-INR; Complete Time: 13:30 [facility] 05/02 12:32 Order name: Troponin (emerg Dept Use Only); Complete Time: 13:30 [facility] 05/02 12:32 Order name: XRAY Chest (1 view); Complete Time: 13:40 [facility] 05/02 12:32 Order name: Lipase; Complete Time: 13:30 [facility] 05/02 12:32 Order name: Urine Culture [facility] 05/02 12:54 Order name: Urine Dipstick--Ancillary (enter results); Complete Time: 13:30 05/02 12:32 Order name: EKG; Complete Time: 12:33 [facility] 05/02 12:32 Order name: EKG - Nurse/Tech; Complete Time: 12:45 [facility] 05/02 12:32 Order name: IV Saline Lock; Complete Time: 12:45 [facility] 05/02 12:32 Order name: Labs collected and sent; Complete Time: 12:45 [facility] 05/02 13:42 Order name: CT Abd/Pelvis - PO and IV Contrast; Complete Time: 15:50 [facility] 05/02 12:32 Order name: O2 Per Protocol; Complete Time: 12:45 [facility] 05/02 12:32 Order name: O2 Sat Monitoring; Complete Time: 12:45 [facility] 05/02 12:32 Order name: Urine Dipstick-Ancillary (obtain specimen); Complete Time: 12:50 [facility] EC:49 Rate is 62 beats/min. Rhythm is regular. QRS [place] is Normal. VA interval is normal. QRS cheri interval is normal. QT interval is normal. No Q waves. T waves are Normal. No ST changes noted. Clinical impression: NSR w/ Non-specific ST/T Changes and No evidence of ischemia. Interpreted by me. Reviewed by me. Administered Medications: 12:53 Drug: NS 0.9% 500 ml Route: IV; Rate: bolus; Site: right antecubital; ll2 13:23 Follow up: Response: No adverse reaction ll2 16:59 Follow up: Response: No adverse reaction; IV Status: Completed infusion ll2 13:02 Drug: NS 0.9% 1000 ml Route: IV; Rate: 125 ml/hr; Site: right antecubital; ll2 13:23 Follow up: Response: No adverse reaction ll2 20:47 Follow up: Response: No adverse reaction; IV Status: Infusion continued upon transfer ll2 13:02 Drug: Zofran (Ondansetron) 4 mg Route: IVP; Site: right antecubital; 2 13:23 Follow up: Response: No adverse reaction ll2 13:02 Drug: fentaNYL (PF) 25 mcg Route: IVP; Site: right antecubital; ll2 13:23 Follow up: Response: No adverse reaction; Pain is decreased; RASS: Alert and Calm (0) ll2 14:05 Drug: Potassium Chloride 20 mEq Route: IV; Rate: per protocol; Site: right antecubital; jd3 16:58 Follow up: Response: No adverse reaction; IV Status: Completed infusion ll2 16:30 Drug: Flagyl 500 mg Volume: 100 ml; Route: IVPB; Rate: 200 ml/hr; Infused Over: 30 ll2 mins; Site: right antecubital; 16:58 Follow up: Response: No adverse reaction; IV Status: Completed infusion ll2 16:30 Drug: Pepcid 20 mg Route: IVP; Site: right antecubital; ll2 16:33 Follow up: Response: No adverse reaction ll2 16:58 Follow up: Response: No adverse reaction ll2 16:31 Drug: Cipro 400 mg Volume: 200 ml; Route: IVPB; Infused Over: 60 mins; Site: right ll2 antecubital; 17:44 Follow up: Response: No adverse reaction; IV Status: Completed infusion ll2 16:42 Drug: fentaNYL (PF) 25 mcg Route: IVP; Site: right antecubital; ll2 16:51 Follow up: Response: No adverse reaction; Pain is decreased; RASS: Alert and Calm (0) ll2 Disposition: 05/02/20 16:01 Transfer ordered to [facility]. Diagnosis are Left sided colitis with other complication - with central fluid collection, Abdominal tenderness - mild right sided colitis, Diarrhea, unspecified, Hypokalemia, Diverticular disease of intestine - colon. - Reason for transfer: Higher level of care. - Accepting physician is to [facility]. - Condition is Fair. - Problem is new. - Symptoms have improved. Signatures: Dispatcher [employer] EDCT New Shen MD MD cha Davies, Jonathon, RN RN jJanki Almazan RN RN ll2 Margarita Felipe RN RN ll1 Corrections: (The following items were deleted from the chart) 12:34 12:33 Abdomen Pelvis W Con+CT.RAD.BRZ ordered. [facility] 20:46 16:01 05/02/2020 16:01 Transfer ordered to [facility]. ll2 Diagnosis is Left sided colitis with other complication - with central fluid collection; Abdominal tenderness - mild right sided colitis; Diarrhea, unspecified; Hypokalemia; Diverticular disease of intestine - colon. Reason for transfer: Higher level of care. Accepting physician is to [facility]. Condition is Fair. Problem is new. Symptoms have improved. cheri
[2020-05-02] MEDS ORDERED: FAMOTIDINE 20 MG/2 ML VIAL IV ONE (16:14)
[2020-05-02] MEDS ORDERED: CIPROFLOXACIN 400mg IV 400 MG/200 ML BAG IV ONE (16:15)
[2020-05-02] MEDS ORDERED: METRONIDAZOLE 500mg IVPB 500 MG/100 ML BAG IV ONE (16:16)
[2020-05-02 20:55] VITALS: TEMP 98
[2020-05-02 21:01] VITALS: O2SAT 99
[2020-05-02 21:03] VITALS: BP 140/52
--- NOTE | 2020-05-03 05:52 | EKG ---
Test Date: 2020-05-02 Test Time: 12:42:56 [employer]eler: WAYLON MEASUREMENT RESULTS: Intervals: Rate: 62 AK: 158 QRSD: 84 QT: 416 QTc: 422 [place]: P: 22 AK: 158 QRS: 8 T: 85 INTERPRETIVE STATEMENTS: Sinus rhythm with premature supraventricular complexes Otherwise normal ECG Compared to ECG 04/21/2020 11:01:35 Left ventricular hypertrophy no longer present Myocardial infarct finding no longer present Electronically Signed On 05-03-20 05:50:12 CDT by Lenard Angela
== END 2020-05-02 20:46 | disposition short-term general hospital (02) ==
LOC: ER 11:43
DX: K51.518 Left sided colitis with other complication (principal); K57.30 Diverticulosis of large intestine without perforation or abscess without bleeding; E87.6 Hypokalemia; R19.7 Diarrhea, unspecified; I12.9 Hypertensive chronic kidney disease with stage 1 through stage 4 chronic kidney disease, or unspecified chronic kidney disease; N18.9 Chronic kidney disease, unspecified; Z85.53 Personal history of malignant neoplasm of renal pelvis; Z88.5 Allergy status to narcotic agent; Z88.8 Allergy status to other drugs, medicaments and biological substances
CPT/HCPCS: 93005; 87088; 85025; 87086; 80048; 36415; 83735; 85610; 80076; 81003; 84484; 83690; 83880; 74177; 71045; Q9967; J3480; J3010 ×2; J7040; J7030; J2405; J0744; 96361; 96365; 96366; 96367; 96375; 99285

== ENCOUNTER 2020-05-13 20:57 | Emergency (ER) | payer OTHER ==
--- OUTSIDE RECORDS SUMMARY | 2020-05-13 21:01 | XMS REPORT | Clinical Summary ---
:1940 Author Organization [facility] Address [address] [place] [address] Care Team Providers Name Role Phone Unavailable [...] mg mouth nightly. 0 24 hr capsule rosuvastatin Take 1 tablet (10 30 tablet [...] Ndle times daily before meals and nightly. ciprofloxacin HCl Take 1 tablet (500 26 tablet 0 10/07 Active (CIPRO) 500 MG mg total) by mouth 0 20 tablet every 12 (twelve) hours for 13 days. metroNIDAZOLE Take 1 tablet (500 39 tablet 0 0 Active (FLAGYL) 500 MG mg total) by mouth 0 20 tablet every 8 (eight) hours for 13 days. atorvastatin Take 1 tablet by 0 04/24/20 Discontinued (LIPITOR) 80 MG mouth daily. 20 tablet cranberry fruit Take 1 tablet by 0 0 Discontinued (CRANBERRY) 450 mg mouth daily. 20 Tab pregabalin Take 1 tablet by 0 04/21/20 Di scontinued (LYRICA) 50 MG mouth daily. 20 capsule valACYclovir Take 1 tablet by 0 04/21/20 Discontinued (VALTREX) 500 MG mouth as needed. 20 tablet furosemide (LASIX) Take 20 mg by 0 0 Discontinued 20 MG tablet mouth as needed. 0 20 tocilizumab Inject 1 Dose 0 04/24/20 Disc [...] on blood sugar . 20 unit/mL injection ciprofloxacin HCl Take 1 tablet (500 26 tablet 0 Discontinued (CIPRO) 500 MG mg total) by mouth 0 20 tablet every 12 (twelve) hours for 13 days. metroNIDAZOLE Take 1 tablet (500 39 tablet 0 0 Discontinued (FLAGYL) 500 MG mg total) by mouth 0 20 tablet every 8 (eight) hours for 13 days. Active Problems Problem Noted Date Colitis 05/02/2020 Dehydration 04/24/2020 Elevated LFTs 04/24/2020 Steroid-induced hyperglycemia 04/24/2020 Meningioma 04/24/2020 Renal cell carcinoma of right kidney 04/21/2020 Fatigue 04/21/2020 Hypothyroidism 04/01/2020 Diabetes mellitus 04/01/2020 Hypertension 04/01/2020 Giant cell arteritis 04/01/2020 Diverticulitis of intestine with abscess 03/31/2020 Encounters Date Type Specialty Care Team Description 05/02/2020 Hospital Encounter Cardiology [place], Colitis; - MD Randy Diverticulitis of large intestine with a bscess without bleeding; 05/06/2020 Meño, Dehydration; Manasa Dao, Hypothyroidi sm, unspecified type; Steroid-induced hyperglycemia; Lay Lester d hypertension MD Renetta 05/02/2020 Travel 04/21/2020 Hospital Encounter General Internal Alda, Lila ue, unspecified type; - Medicine MD Yoanna Steroid-induced hyperglycemia; 04/24/2020 Tara Eagle, Diarrhea of presumed infectious origin; Murmur, cardiac ; Transaminitis; Brain mass; Uncontrolled hy pertension; Dehydration 04/21/2020 Orders Only General Internal Medicine 04/21/2020 Documentation Internal Medicine Yoanna Lizama MD 04/02/2020 Travel 03/31/2020 Hospital Encounter Oncology Lay Lester ticulitis of large intestine with abscess without bleeding; - MD Renetta Essential hypertension; 04/05/2020 Kier[facility] CKD (chroni c kidney disease) stage 2, GFR 60-89 ml/min; MD Freida Dementia without behavioral disturbance, unspecified dementia type (HCC); Anil Pearson Hypothyroidi sm, unspecified type; MD Jos Giant cell andre ritis syndrome (HCC); Immunosuppresse d status (HCC) after 05/13/2019 Family History Medical History Relation Name Comments [...] Vital Sign Reading Time Taken Blood Pressure 147/74 05/06/2020 3:24 PM CDT Pulse 78 05/06/2020 3:24 PM CDT Temperature 36.5 C (97.7 F) 05/06/2020 3:24 PM CDT Respiratory Rate 17 05/06/2020 3:24 PM CDT Oxygen Saturation 96% 05/06/2020 3:24 PM CDT Inhaled Oxygen Concentration 21% 05/05/2020 8:18 PM CDT Weight 61.2 kg (135 lb) 05/02/2020 10:15 PM CDT Height 152.4 cm (5') 05/02/2020 10:15 PM CDT Body Mass Index 26.37 05/02/2020 10:15 PM CDT Plan of Treatment Health Maintenance Due Date Last Done Comments DIABETIC EYE EXAM 1950 DIABETIC FOOT EXAM 1950 PNEUMOCOCCAL 65+ LOW/MEDIUM RISK (1 of 2 - 2006 PCV13) Medicare IPPE (WELCOME TO MEDICARE) 07/18/2019 INFLUENZA VACCINE (#1) 2020 HEMOGLOBIN A1C 11/02/2020 05/05/2020, 04/24/2020 URINE MICROALBUMIN 01/20/2021 01/21/2020 Procedures Procedure Name Priority Date/Time Associated Diagnosis Comme nts RHYTHM STRIP - SCAN 05/10/2020 10:00 AM CDT REPORT OF PROCEDURE - 05/10/2020 10:00 AM CDT ENDOSCOPY SCAN ECG 12-LEAD Routine 05/06/2020 1:39 PM CDT Procedure Note - Interface, External Ris In - 05/06/2020 1:45 PM CDT Ventricular Rate 76 BPM Atrial Rate 76 BPM P-R Interval 154 ms QRS Duration 84 ms Q-T Interval 378 ms QTC Calculation(Bazett) 425 ms P Gile 19 degrees R Gile -1 degrees T Gile 32 degrees Sinus rhythm with marked sin us arrhythmia Cannot rule out Inferior inf arct , age undetermined Abnormal ECG When compared with ECG of 19:42, No significant change was fo und ECG 12-LEAD LOIS 05/06/2020 1:39 PM CDT Resu lts for this procedure are i n the results section . POCT-GLUCOSE METER Routine 05/06/2020 12:38 PM CDT Results for this procedure are i n the results section . POCT-GLUCOSE METER Routine 05/06/2020 7:48 AM CDT Results for this procedure are i n the results section . BASIC METABOLIC PANEL (7) Routine 05/06/2020 4:04 AM CDT Results for this procedure are i n the results section . POCT-GLUCOSE METER Routine 05/05/2020 10:10 PM CDT Results for this procedure are i n the results section . POCT-GLUCOSE METER Routine 05/05/2020 5:35 PM CDT Results for this procedure are i n the results section . POCT-GLUCOSE METER Routine 05/05/2020 12:00 PM CDT Results for this procedure are i n the results section . POCT-GLUCOSE METER Routine 05/05/2020 8:36 AM CDT Results for this procedure are i n the results section . BASIC METABOLIC PANEL (7) Routine 05/05/2020 6:09 AM CDT Results for this procedure are i n the results section . HEMOGLOBIN A1C Routine 05/05/2020 6:09 AM CDT Re sults for this procedure are i n the results section . POCT-GLUCOSE METER Routine 05/04/2020 10:28 PM CDT Results for this procedure are i n the results section . POCT-GLUCOSE METER Routine 05/04/2020 5:33 PM CDT Results for this procedure are i n the results section . POCT-GLUCOSE METER Routine 05/04/2020 11:48 AM CDT Results for this procedure are i n the results section . POTASSIUM STAT 05/04/2020 9:37 AM CDT Resu lts for this procedure are i n the results section . POCT-GLUCOSE METER Routine 05/04/2020 7:53 AM CDT Results for this procedure are i n the results section . BASIC METABOLIC PANEL (7) Routine 05/04/2020 5:08 AM CDT Results for this procedure are i n the results section . POCT-GLUCOSE METER Routine 05/03/2020 10:02 PM CDT Results for this procedure are i n the results section . STOOL PATH CHARGE Routine 05/03/2020 6:44 PM CDT Results for this procedure are i n the results section . SHIGA TOXIN SCREEN Routine 05/03/2020 6:44 PM CDT Results for this procedure are i n the results section . OVA AND PARASITE EXAMINATION Routine 05/03/2020 6:44 PM CDT Results for this procedure are i n the results section . FECAL LEUKOCYTES Routine 05/03/2020 6:44 PM CDT Results for this procedure are i n the results section . STOOL CULTURE + SHIGA TOXIN Routine 05/03/2020 6:44 PM CDT Results for this procedure are i n the results section . C. DIFFICILE GDH TOXIN Routine 05/03/2020 6:44 PM CDT Results for this procedure are i n the results section . POCT-GLUCOSE METER Routine 05/03/2020 2:38 PM CDT Results for this procedure are i n the results section . CBC W/PLT COUNT & AUTO Routine 05/03/2020 5:54 AM CDT Results for this DIFFERENTIAL procedure are i n the results section . CBC W/PLT COUNT & AUTO Routine 05/03/2020 5:54 AM CDT Results for this DIFFERENTIAL procedure are i n the results section . MAGNESIUM Routine 05/03/2020 5:54 AM CDT Resu lts for this procedure are i n the results section . PROTHROMBIN TIME/INR Routine 05/03/2020 5:54 AM CDT Results for this procedure are i n the results section . HEPATIC FUNCTION PANEL Routine 05/03/2020 5:54 AM CDT Results for this procedure are i n the results section . BASIC METABOLIC PANEL (7) Routine 05/03/2020 5:54 AM CDT Results for this procedure are i n the results section . BLOOD CULTURE Routine 05/03/2020 5:54 AM CDT Res ults for this procedure are i n the results section . BLOOD CULTURE Routine 05/03/2020 5:54 AM CDT Res ults for this procedure are i n the results section . RHYTHM STRIP - SCAN 04/26/2020 1:51 PM CDT POCT-GLUCOSE METER Routine 04/24/2020 4:31 PM CDT Results for this procedure are i n the results section . HEPATITIS PANEL, ACUTE Routine 04/24/2020 3:43 PM CDT Results for this procedure are i n the results section . ECHO W/ CONTRAST LIMITED Routine 04/24/2020 2:37 PM CDT Results for this STUDY procedure are i n the results section . POCT-GLUCOSE METER Routine 04/24/2020 12:25 PM CDT Results for this procedure are i n the results section . COMPREHENSIVE METABOLIC Routine 04/24/2020 11:15 AM CDT Results for this PANEL procedure are i n the results section . LIPID PANEL Routine 04/24/2020 11:15 AM CDT Resu lts for this procedure are i n the results section . POCT-GLUCOSE METER Routine 04/24/2020 7:59 AM CDT Results for this procedure are i n the results section . TSH/FREE T4 IF INDICATED Add-On 04/24/2020 6:43 AM CDT Results for this procedure are i n the results section . HEMOGLOBIN A1C Routine 04/24/2020 6:43 AM CDT Re sults for this procedure are i n the results section . FERRITIN Routine 04/24/2020 6:43 AM CDT Resu lts for this procedure are i n the results section . PROTEIN ELECTROPHORESIS, Routine 04/24/2020 6:43 AM CDT Results for this SERUM procedure are i n the results section . METHYLMALONIC ACID Routine 04/24/2020 6:43 AM CDT Results for this procedure are i n the results section . VITAMIN B12 AND FOLATE Routine 04/24/2020 6:43 AM CDT Results for this procedure are i n the results section . POCT-GLUCOSE METER Routine 04/23/2020 11:06 PM CDT Results for this procedure are i n the results section . US ABDOMEN LIMITED LOIS 04/23/2020 8:40 PM CDT Results for this procedure are i n the results section . POCT-GLUCOSE METER Routine 04/23/2020 5:29 PM CDT Results for this procedure are i n the results section . MR BRAIN WITH & WITHOUT IV Routine 04/23/2020 4:50 PM CDT Results for this CONTRAST procedure are i n the results section . CT BRAIN WITHOUT IV CONTRAST Routine 04/23/2020 9:17 AM CDT Results for this procedure are i n the results section . CBC W/PLT COUNT & AUTO Routine 04/23/2020 4:02 AM CDT Results for this DIFFERENTIAL procedure are i n the results section . HEPATIC FUNCTION PANEL Routine 04/23/2020 4:02 AM CDT Results for this procedure are i n the results section . BASIC METABOLIC PANEL (7) Routine 04/23/2020 4:02 AM CDT Results for this procedure are i n the results section . CBC W/PLT COUNT & AUTO Routine 04/23/2020 4:02 AM CDT Results for this DIFFERENTIAL procedure are i n the results section . POCT-GLUCOSE METER Routine 04/23/2020 3:50 AM CDT Results for this procedure are i n the results section . POCT-GLUCOSE METER Routine 04/22/2020 8:53 PM CDT Results for this procedure are i n the results section . POCT-GLUCOSE METER Routine 04/22/2020 4:06 PM CDT Results for this procedure are i n the results section . POCT-GLUCOSE METER Routine 04/22/2020 12:06 PM CDT Results for this procedure are i n the results section . 2D ECHO MODE W/O DOPPLER Routine 04/22/2020 10:03 AM CDT Results for this procedure are i n the results section . POCT-GLUCOSE METER Routine 04/22/2020 8:28 AM CDT Results for this procedure are i n the results section . CBC W/PLT COUNT & AUTO Routine 04/22/2020 5:22 AM CDT Results for this DIFFERENTIAL procedure are i n the results section . CBC W/PLT COUNT & AUTO Routine 04/22/2020 5:22 AM CDT Results for this DIFFERENTIAL procedure are i n the results section . PHOSPHORUS Routine 04/22/2020 5:22 AM CDT Resu lts for this procedure are i n the results section . MAGNESIUM Routine 04/22/2020 5:22 AM CDT Resu lts for this procedure are i n the results section . HEPATIC FUNCTION PANEL Routine 04/22/2020 5:22 AM CDT Results for this procedure are i n the results section . BASIC METABOLIC PANEL (7) Routine 04/22/2020 5:22 AM CDT Results for this procedure are i n the results section . SARS-COV2/RT-PCR (SLHS & REF Routine 04/22/2020 12:49 AM CDT Results for this LABS) procedure are i n the results section . POCT-GLUCOSE METER Routine 04/21/2020 11:29 PM CDT Results for this procedure are i n the results section . BLOOD CULTURE Routine 04/21/2020 9:35 PM CDT Res ults for this procedure are i n the results section . BLOOD CULTURE Routine 04/21/2020 9:35 PM CDT Res ults for this procedure are i n the results section . URINALYSIS W/ MICROSCOPIC Routine 04/21/2020 9:19 PM CDT Results for this procedure are i n the results section . ECG 12-LEAD Routine 04/21/2020 7:42 PM CDT Procedure Note - Interface, External Ris In - 04/21/2020 8:24 PM CDT Ventricular Rate 54 BPM Atrial Rate 54 BPM P-R Interval 174 ms QRS Duration 82 ms Q-T Interval 442 ms QTC Calculation(Bazett) 419 ms P Gile 35 degrees R Gile 7 degrees T Gile 69 degrees Sinus bradycardia Otherwise normal ECG [...] i n the results section . after 05/13/2019 Results RHYTHM STRIP - SCAN (05/10/2020 10:00 AM CDT)Only the most recent of2 results within the time period is included. Narrative Performed At This result has an attachment that is no t available. EKG-SCANNED (05/10/2020 10:00 AM CDT) Narrative Performed At This result has an attachment that is no t available. ECG 12 lead (05/06/2020 1:39 PM CDT)Only the most recent of2 resultswithin the time period is included. Specimen Narrative Performed At Ventricular Rate 76 BPM GE MUSE Atrial Rate 76 BPM P-R Interval 154 ms QRS Duration 84 ms Q-T Interval 378 ms QTC Calculation(Bazett) 425 ms P Gile 19 degrees R Gile -1 degrees T Gile 32 degrees Sinus rhythm with marked sinus arrhythmi a Cannot rule out Inferior infarct , age u ndetermined Abnormal ECG When compared with ECG of 21-APR-2020 19 :42, No significant change was found Confirmed by Ankur Leyva ([id number]) on 05/07/2020 8:27:53 AM Procedure Note Interface, External Ris In - 05/07/2020 8:28 AM CDT Ventricular Rate 76 BPM Atrial Rate 76 BPM P-R Interval 154 ms QRS Duration 84 ms Q-T Interval 378 ms QTC Calculation(Bazett) 425 ms P Gile 19 degrees R Gile -1 degrees T Gile 32 degrees Sinus rhythm with marked sinus arrhythmi a Cannot rule out Inferior infarct , age u ndetermined Abnormal ECG When compared with ECG of 21-APR-2020 19 :42, No significant change was found Confirmed by Ankur Leyva [id number]) on 05/07 8:27:53 AM Performing Organization Address City/[facility]/Zipcode Phone Number ZURI MOSS POC-Glucose meter (05/06/2020 12:38 PM CDT)Only the most recent of23 results within the time period is included. POC-Glucose Meter 255 (H)Comment: : Notified 70 - 110 mg/dL [facility] RN/MD: TESTED AT [facility] [address] [place] [address], [id number]: Hospital Secretary/Bilingual Operator ID = [id number] for KAITLIN CALLAWAY Specimen Blood Performing Organization Address [facility] Mex[facility]ode Phone Number [address] [phone] [place] Basic Metabolic Panel (05/06/2020 4:04 AM CDT)Only the most recent of6 results within the time period is included. Sodium 139 136 - 145 meq/L [facility] Potassium 4.2Comment: Specimen slightly 3.5 - 5.1 meq/L [facility] Ch[facility] 108 (H) 98 - 107 meq/L [facility] CO2 25 22 - 29 meq/L [facility] BUN 11 7 - 21 mg/dL [facility] Creatinine 0.73Comment: Specimen 0.57 - 1.25 mg/dL [facility] slightly hemolyzed [facility] R Glucose 244 (H) 70 - 105 mg/dL [facility] Calcium 8.1 (L) 8.4 - 10.2 mg/dL [facility] EGFR 77Comment: ESTIMATED GFR IS mL/min/1.73 sq m [facility] NOT ACCURATE CREATININE [facility] CLEARANCE IN PREDICTING GLOMERULAR FILTRATION RATE. ESTIMATED GFR IS NOT APPLICABLE FOR DIALYSIS PATIENTS. Specimen Blood Narrative Performed At Hospital Secretary ID - EVELIA Weiss [facility] Specimen slightly icteric Performing Organization Address [facility]/Zipcode Phone Number [address] [phone] [place] Hemoglobin A1c (05/05/2020 6:09 AM CDT)Only the most recent of2 resultswithin the time period is included. Hemoglobin A1C 8.4 (H) 4.3 - 6.1 % [facility] Specimen Blood Performing Organization Address City/[facility]/Zipcode Phone Number [address] [phone] [place] Potassium (05/04/2020 9:37 AM CDT) Potassium 4.9Comment: Specimen slightly 3.5 - 5.1 meq/L [facility] hemolyzed [facility] Specimen Blood Narrative Performed At Hospital Secretary TIARA Weiss [facility] Performing Organization Address [facility] Mex[facility]n Phone Number [address] [phone] [place] Clostridium difficile [facility] Toxin (05/03/2020 6:44 PM CDT) C. Difficle Toxin Negative Negative [facility] C. Difficile [facility] Antigen Positive (A)Comment: C. Negative [facility] difficile present but toxin [facility] not detected. Indicates colonization with non-toxigenic strain or level of toxin below detectable levels. No need for enteric isolation. Treatment is rarely needed (only when strong clinical suspicion for Clostridium difficile infection) Specimen Stool Narrative Performed At Testing performed by [employer] [facility] Assay.For [facility], published sensitivity of the assay is 98.7% compared to cytotoxicity testing.For Toxin AB, published sensitivity is 87.8% and specificity 99.4% compared to cytotoxicity testing. Verification of kit performance was done by the [facility] prior to clinical use. Performing Organization Address City/State/Zipcode Phone Number [address] [phone] [place] STOOL PATH CHARGE (05/03/2020 6:44 PM CDT) Pathogen exam charged Done [facility] Specimen Stool Performing Organization Address City/[facility]/Zipcode Phone Number [address] [phone] [place] Shiga Toxin Screen (05/03/2020 6:44 PM CDT) Shiga toxin 1 Not detected Not detected [facility] Shiga toxin 2 Not detected Not detected [facility] Specimen Stool Performing Organization Address [facility]/Zipcode Phone Number [address] [phone] [place] Ova and Parasite Examination (05/03/2020 6:44 PM CDT) O&P Direct Smear No ova or parasites No ova or parasites [facility] seen seen [facility] O&P Concentrate Smear No ova or parasites No ova or parasites [facility] seen [facility] O&P Trichrome Smear No ova or parasites No ova or parasites [facility] seen seen [facility] Specimen Stool Narrative Performed At This result has an attachment that is no t available. Performing Organization Address [facility] Mex[facility]ode Phone Number [address] [phone] [place] Fecal leukocytes (05/03/2020 6:44 PM CDT) Fecal Leukocytes No fecal leukocytes No fecal leukocytes [facility] seen seen [facility] Specimen Stool Performing Organization Address [facility]/Zipcode Phone Number [address] [phone] CENTER Stool culture + Shiga toxin (05/03/2020 6:44 PM CDT) Result No Salmonella, Shigella or [facility] Campylobacter isolated [facility] Specimen Stool Performing Organization Address [facility]/Zipcode Phone Number [address] [phone] [place] CBC with platelet count + automated diff (05/03/2020 5:54 AM CDT)Only the most recent of8 resultswithin the time period is included. WBC 6.2 3.5 - 10.5 K/L [facility] RBC 3.99 3.93 - 5.22 M/L [facility] Hemoglobin 12.0 11.2 - 15.7 GM/DL [facility] Hematocrit 37.2 34.1 - 44.9 % [facility] MCV 93.2 79.4 - 94.[address] [facility] MCH 30.1 25.6 - 32.2 pg [facility] MCHC 32.3 32.2 - 35.5 GM/DL [facility] RDW 15.1 (H) 11.7 - 14.4 % [facility] Platelets 98 (L) 150 - 450 K/CU MM [facility] MPV 10.9 9.4 - 12.[address] [facility] nRBC 0 0 - 0 /[address] [facility] % Neutros 72 % [facility] % Lymphs 17 % [facility] % Monos 10 % [facility] % Eos 1 % [facility] % Baso 0 % [facility] # Neutros 4.41 1.56 - 6.13 K/L [facility] # Lymphs 1.02 (L) 1.18 - 3.74 K/L [facility] # Monos 0.60 (H) 0.24 - 0.36 K/L [facility] # Eos 0.07 0.04 - 0.36 K/L [facility] # Baso 0.01 0.01 - 0.08 K/L [facility] Immature Granulocytes-Relative 1 0 - 1 % C [facility] Specimen Blood Performing Organization Address [facility] Mex[facility]ode Phone Number [address] [address] CENTER Blood Culture - Routine (Left Venipuncture) (05/03/2020 5:54 AM CDT)Only the most recent of4 resultswithin the time period is included. Result No growth in 5 days [facility] Specimen Blood Performing Organization Address [facility] Phone Number [address] [address] [place] Prothrombin time/INR (05/03/2020 5:54 AM CDT) Protime 14.7 (H) 11.9 - 14.2 seconds [facility] INR 1.18 <=5.90 [facility] Specimen Blood Narrative Performed At Effective 01/13/2019: PT Reference Range [facility] Change New: 11.9-14.2Previous: 11.7-14.7 RECOMMENDED COUMADIN/WARFARIN INR THERAPY RANGES STANDARD DOSE: 2.0-3.0Includes: PROPHYLAXIS for venous thrombosis, systemic embolization; TREATMENT for venous thrombosis and/or pulmonary embolus. HIGH RISK: Target INR is 2.5-3.5 for patients wiht mechanical heart valves. Performing Organization Address [facility] Phone Number [address] [address] CENTER Magnesium (05/03/2020 5:54 AM CDT)Only the most recent of4 resultswithin the time period is included. Magnesium 1.9 1.6 - 2.6 mg/dL [facility] Specimen Blood Narrative Performed At Hospital Secretary TIARA Weiss [facility] Performing Organization Address City/State/Zipcode Phone Number [place] [phone] [place] [address] CENTER Hepatic function panel (05/03/2020 5:54 AM CDT)Only the most recent of3 results within the time period is included. Protein, Total 4.5 (L) 6.0 - 8.3 gm/dL [facility] Albumin 3.0 (L) 3.5 - 5.0 g/dL [facility] Total Bilirubin 0.6 0.2 - 1.2 mg/dL [facility] Bilirubin, Direct 0.3 0.1 - 0.5 mg/dL [facility] Alkaline Phosphatase 48 40 - 150 U/L [facility] AST 40 (H) 5 - 34 U/L [facility] ALT 107 (H) 6 - 55 U/L [facility] Specimen Blood Narrative Performed At Hospital Secretary ID - EVELIA M [facility] Specimen slightly icteric Performing Organization Address City/[facility]/Zipcode Phone Number [address] [address] [place] Hepatitis panel, acute (04/24/2020 3:43 PM CDT) Hep A IgM Nonreactive Nonreactive [facility] Hep B C IgM Nonreactive Nonreactive [facility] Hepatitis C Ab Nonreactive Nonreactive [facility] HBsAg Screen Nonreactive Nonreactive [facility] Specimen Blood Narrative Performed At Hospital Secretary ID - DB [facility] Performing Organization Address City/State/Zipcode Phone Number [place] [phone] [place] [address] CENTER Echo w contrast limited study (04/24/2020 2:37 PM CDT) Ejection Fraction [facility] ECHO HEAR TLAB [facility] Specimen Narrative Performed At Transthoracic Echocardiography Report (T TE) [facility] ECHO HEARTLAB [facility] Demographics Patient NameMATHEJAYSON, TUNDE Date of Study 04/24/2020 DARRION Female Visit [id number] Unknown Room Number 1550 Number Date of 2Referring Tara Eagle MD Physician Age 79 year(s)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 Clinical History HGB 12.5 HCT 38.9 % RCC- S/P Resection 1996 DM HTN, HYPOTHYROIDISM Hx CAD-MO Contrast Medium: Bubble Study. Height: 60 inches [...] Study 04/24/2020 DARRION Gender Female Visit Number [id number] Race Unknown [place] [address] Number Date of 1940 Referri nathan Eagle MD Physici an Age 79 year(s) Sonogra pher Peg Morales, MIKE Interpr eting MD [place] Aguila Procedure Type of Study TTE procedure:ECHO W/CONT LTD STUDY WO DOPP (Routine) Indications:Suspected cardiac source of emboli. Clinical History HGB 12.5 HCT 38.9 % RCC- S/P Resection 1996 DM HTN, HYPOTHYROIDISM Hx CAD-MO Contrast Medium: Bubble Study. Height: 60 inches [...] LVOT Area: 2.96 cm^2 Performing Organization Address [facility] Phone Number [facility] ECHO HEARTLAB MKCKESSON CPACS Lipid panel (04/24/2020 11:15 AM CDT) Triglycerides 225Comment: Specimen slightly mg/dL [facility] Cholesterol 241Comment: Specimen slightly mg/dL [facility] HDL 60 mg/dL [facility] LDL Calculated 136 mg/dL [facility] Specimen Blood Narrative Performed At Triglyceride Reference Range: [facility] Low Risk <150 [id number] High Risk 200-499 Very High Risk>=500 Cholesterol Reference Range: Low Risk <200 [id number] High Risk>240 HDL Cholesterol Reference Range: Low Risk >=60 High Risk <40 LDL Cholesterol Reference Range: Optimal<100 Near [id number] [id number] Very High >=190 Hospital Secretary ID - SUSI M Specimen moderately icteric Performing Organization Address [facility] Phone Number [address] [address] CENTER Comprehensive metabolic panel (04/24/2020 11:15 AM CDT)Only the most recent of7 resultswithin the time period is included. Protein, Total 5.6 (L)Comment: Specimen 6.0 - 8.3 gm/dL [facility] slightly hemolyzed [facility] C [facility]TER Albumin 3.4 (L)Comment: Specimen 3.5 - 5.0 g/dL [facility] slightly hemolyzed [facility] C ENTER Alkaline Phosphatase 79 40 - 150 U/L [facility] Total Bilirubin 0.8Comment: Specimen 0.2 - 1.2 mg/dL [facility] slightly hemolyzed [facility] Sodium 136 136 - 145 meq/L [facility] Potassium 4.5Comment: Specimen 3.5 - 5.1 meq/L [facility] slightly hemolyzed [facility] Chloride 100 98 - 107 meq/L [facility] CO2 31 (H) 22 - 29 meq/L [facility] BUN 24 (H) 7 - 21 mg/dL [facility] Creatinine 0.90Comment: Specimen 0.57 - 1.25 mg/dL [facility] slightly hemolyzed [facility] Glucose 336 (H) 70 - 105 mg/dL [facility] Calcium 8.9 8.4 - 10.2 mg/dL [facility] AST 45 (H)Comment: Specimen 5 - 34 U/L [facility] slightly hemolyzed [facility] ALT 120 (H)Comment: Specimen 6 - 55 U/L [facility] slightly hemolyzed [facility] C ENTER EGFR 61Comment: ESTIMATED GFR mL/min/1.[address] [facility] IS NOT ACCURATE [facility] CREATININE CLEARANCE IN PREDICTING GLOMERULAR FILTRATION RATE. ESTIMATED GFR IS NOT APPLICABLE FOR DIALYSIS PATIENTS. Specimen Blood Narrative Performed At Hospital Secretary ID - SUSI M [facility] Specimen moderately icteric Performing Organization Address City/State/Zipcode Phone Number [facility] [address] [place] [address] CENTER Vitamin B12 and Folate (04/24/2020 6:43 AM CDT) Vitamin B12 1,155 (H) 213 - 816 pg/mL [facility] Folate 8.50 >=7.00 ng/mL [facility] Specimen Blood Narrative Performed At Hospital Secretary ID - [facility]ID [facility] Performing Organization Address [facility]/Zipcode Phone Number [address] [address] CENTER TSH/Free T4 If Indicated (04/24/2020 6:43 AM CDT) TSH 3.805 0.350 - 4.940 uIU/mL [facility] Specimen Blood Narrative Performed At Hospital Secretary ID - AAHAMID [facility] Performing Organization Address City/[facility] Mex[facility] Phone Number [address] [address] CENTER Methylmalonic acid (04/24/2020 6:43 AM CDT) Methlymalonic Acid,Ser 206 87 - 318 nmol/L [facility] Comment: INC[facility]PORATED This test was developed and its analytical perfo rmance characteristics have been determined by [email or web address]. It has not been cleared or approved by FDA. This assay has been validated pursuant to the CLIA regulations and is used for clinical purposes. Specimen Blood Narrative Performed At Performing Lab [facility] E[facility] [address] [address] [place] [address] I Hayder VERGARA, PhD, RICHI Performing Organization Address [facility] Phone Number [facility] [place] [phone] [facility]PORATED [address] [facility] Protein electrophoresis, serum (04/24/2020 6:43 AM CDT) Albumin Fraction 3.0 (L) 3.5 - 5.5 g/dL [facility] Alpha 1 Fraction 0.2 0.2 - 0.4 g/dL [facility] ER Alpha 2 Fraction 0.8 0.5 - 0.9 g/dL [facility] ER Beta Fraction 0.6 0.6 - 1.1 g/dL [facility] Gamma Globulin Fraction 0.4 (L) 0.7 - 1.7 g/dL [facility] Interpretation Pattern suggestive of [facility] mild acute inflammation [facility] coupled with urine protein loss and/or protein-losing enteropathy. No monoclonal bands detected. Pathologist: Yudith Emanuel MD [facility] (electronic signature) [facility] Protein, Total 5.0 (L) 6.0 - 8.3 gm/dL [facility] Specimen Blood Narrative Performed At Hospital Secretary ID - EVELIA M [facility] Performing Organization Address City/[facility] Phone Number [address] [address] CENTER Ferritin (04/24/2020 6:43 AM CDT) Ferritin 292.76 (H) 5.00 - 275.00 ng/mL [facility] Specimen Blood Narrative Performed At Hospital Secretary ID - AAHAMID [facility] Performing Organization Address City/[facility] Phone Number [address] [address] CENTER US abdomen limited (04/23/2020 8:40 PM CDT) Specimen Narrative Performed At FINAL REPORT [facility] U/S, ABDOMINAL, LIMITED CLINICAL HISTORY: elevated lfts [...] 3:25:58 Performing Organization Address City/State/Zipcode Phone Number e-SENS MR brain without & with IV contrast (04/23/2020 4:50 PM CDT) Specimen Narrative Performed At FINAL REPORT e-SENS MRI Brain with and without contrast CLINICAL [...] 2:52:33 Performing Organization Address City/State/Zipcode Phone Number e-SENS CT brain without IV contrast (04/23/2020 9:17 AM CDT) Specimen Narrative Performed At FINAL REPORT e-SENS CT, BRAIN, WITHOUT CONTRAST INDICATION: Unlisted Reason [...] 0:32:40 Performing Organization Address City/State/Zipcode Phone Number e-SENS 2D Echo W/O Doppler(No Doppler) (04/22/2020 10:03 AM CDT) Ejection Fraction [facility] ECHO HEAR TLAB [facility] Specimen Narrative Performed At Transthoracic Echocardiography Report (T TE) [facility] ECHO HEARTLAB [facility] Demographics Patient NameMATHEWS, TUNDE Date of Study 04/22/2020 DARRION Female Visit [id number] Unknown Room Number 1550 Number Date of 2Referring [place]co [place] Physician 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 Clinical History HGB 14.6 HCT 44.4 % DM Renal Cell Carcinoma-S/p resection 1996 HTN, HYPOTHYROIDISM Hx CAD-MO Height: 60 inches Weight: 58.97 kg (130 [...] T CI: 3.65 l/min/m^2 Performing Organization Address City/[facility] Phone Number [facility] HEARTLAB MKCKESSON CPACS Phosphorus (04/22/2020 5:22 AM CDT)Only the most recent of2 resultswithin the time period is included. Phosphorus 3.1 2.3 - 4.7 mg/dL [facility] Specimen Blood Narrative Performed At Hospital Secretary TIARA Weiss [facility] Performing Organization Address City/State/Zipcode Phone Number [facility] [address] [place] [address] CENTER SARS-CoV2/RT-PCR (Asymptomatic ONLY) (04/22/2020 12:49 AM CDT) SARS-COV2/RT-PCR Negative Not Detected, Negative, [facility] See external report for MEDICAL CENTER linked test SARS-COV-2 PERFORMING LAB BSC ROLY [facility] Specimen Other Narrative Performed At Negative result for this test determines that [facility] SARS-CoV-2 RNA was not present in the [...] the Act. Fact Sheet for Healthcare Providers: https://www.[employer]/sites/default/files/pro duct/documents/Fact_Sheet_HC_Providers_Lyra_SA RS-CoV-2.pdf Fact Sheet for Healthcare Patients: https://www.[employer]/sites/default/files/pro duct/documents/Fact_Sheet_Patients_Lyra_SARS-C oV-2.pdf Performing Laboratory: [address] [address] Performing Organization Address City/State/Zipcode Phone Number [facility] [address] [place] [address] [place] Urinalysis w/Microscopic (04/21/2020 9:19 PM CDT) Color, UA Light Yellow [facility] Clarity, UA Clear [facility] Specific [place], UA 1.029 1.001 - 1.[address] [facility] pH, UA 6.0 5.0 - 8.0 [facility] Protein, UA Negative Negative [facility] Glucose, UA 30 mg/dL (A) Negative [facility] Ketones, UA Negative Negative [facility] Bilirubin, UA Negative Negative [facility] Blood, UA Negative Negative [facility] Nitrite, UA Negative Negative [facility] Leukocytes, UA Trace (A) Negative [facility] Urobilinogen, UA 0.2 0.2 - 1.0 mg/dL [facility] RBC, UA 1 /HPF [facility] WBC, UA 3 /HPF [facility] Squam Epithel, UA <1 /HPF [facility] Specimen Source [facility] Specimen Urine Narrative Performed At Hospital Secretary ID - [auto] [facility] Hospital Secretary ID - steve Performing Organization Address City/State/Zipcode Phone Number [facility] [address] [place] [address] [place] Anaerobic culture (03/31/2020 6:14 PM CDT) Result No anaerobes isolated [facility] Specimen Body Fluid Performing Organization Address City/[facility]/Zipcode Phone Number [facility] [address] [place], [place] [phone] [place] Fungus culture + smear (03/31/2020 6:14 PM CDT) Result 3+ Lorri albicans (A) [facility] Fungus Smear No fungi seen [facility] Specimen Body Fluid Performing Organization Address City/[facility]/Zipcode Phone Number [facility] [address] [place] [address] drainage abdominal (03/31/2020 6:12 PM CDT) Specimen Narrative Performed At FINAL REPORT e-SENS PROCEDURE: CT, DRAINAGE, ABDOMINAL DOSE REDUCTION: The examination was perf ormed according to departmental dose-optimization program w hich includes automated exposure control, adjustment of the mA a nd/or kV according to patient size and/or use of iterative reconstruct ion technique. HISTORY: Diverticulitis with increasing size of abscess Hospital Secretary: Bam Ko MD Moderate sedation: See nursing medication administration re cord regarding medication doses. Vital signs were monitored throughout [facility] procedure by a nurse, and remained stable. [...] dilated using serial dilators. Subsequently a 8 Sinhala all-purpose drainage catheter was advanced into the collectio n using CT guidance. Approximately 15 cc of thick purulent fl uid was obtained. Samples were submitted to microbiology for [facility] er testing.Catheter was anchored to the skin [...] MD Report Verified Date/Time:04/01/2020 12:12:30 Reading Location: [facility] B1 C013T [facility] Reading Room Procedure Note Interface, External Ris In - 04/01/2020 12:14 PM CDT FINAL REPORT PROCEDURE: CT, DRAINAGE, ABDOMINAL DOSE REDUCTION: The examination was perf ormed according to departmental dose-optimization program w hich includes automated exposure control, adjustment of the mA a nd/or kV according to patient size and/or use of iterative reconstruct ion technique. HISTORY: Diverticulitis with increasing size of abscess Hospital Secretary: Bam Ko MD Moderate sedation: See nursing [...] dilated using serial dilators. Subsequently a 8 Sinhala all-purpose drainage catheter was advanced into the collectio n using CT guidance. Approximately 15 cc of thick purulent fl uid was obtained. Samples [facility]. Catheter was anchored to the [...] abscess. Signed: Bam Ko MD Report Verified Date/Time: 04/01/2020 1 2:12:30 Reading Location: [facility] B1 C013T [facility] Reading Room Performing Organization Address City/State/Zipcode Phone Number [facility] Wound culture + gram stain (03/31/2020 6:04 PM CDT) Result 2+ Lorri albicans (A) [facility] Result 2+ Klebsiella oxytoca (A) [facility] Result 2+ Citrobacter freundii (A) [facility] Gram Stain Result 4+ WBCs [facility] Gram Stain Result <1+ budding yeast [facility] Specimen Wound Organism Antibiotic Method Susceptibility Klebsiella [...] + Sulfamethoxazole <=20: Susceptible Performing Organization Address [facility] Phone Number [address] [address] [place] PT/aPTT (03/31/2020 9:15 AM CDT) Protime 13.5 11.9 - 14.2 seconds [facility] INR 1.06 <=5.90 [facility] PTT 24.2 22.5 - 36.0 seconds [facility] Specimen Blood Narrative Performed At Effective 01/13/2019: PT Reference Range [facility] Change New: 11.9-14.2Previous: 11.7-14.7 RECOMMENDED COUMADIN/WARFARIN INR THERAPY RANGES STANDARD DOSE: 2.0-3.0Includes: PROPHYLAXIS for venous thrombosis, systemic embolization; TREATMENT for venous thrombosis and/or pulmonary embolus. HIGH RISK: Target INR is 2.5-3.5 for patients wiht mechanical heart valves. Performing Organization Address [facility] Phone Number [address] [address] [place] Lactic acid, venous (03/31/2020 9:15 AM CDT) Lactate, Venous 1.05 0.50 - 2.20 mmol/L [facility] Specimen Blood Narrative Performed At Hospital Secretary ID - MICHELL Manuel [facility] Performing Organization Address City/[facility]/Zipcode Phone Number [address] [address] CENTER after 05/13/2019 Insurance Payer Benefit Plan / Group Subscriber ID Type Phone A ddress [facility] MEDIC[employer] HMO xxxxxxxxx MEDICARE MGD CARE CDC REVIEW CDC REVIEW xxxxxxxx [address] [place] [place] [address] Advance Directives For more information, please contact:[address] [phone] Code Status Date Activated Date Inactivated Comments Full Code 05/02/2020 11:28 PM 05/06/2020 6:09 PM This code status was determined by: Patient DNAR 04/22/2020 3:00 PM 04/24/2020 11:56 PM [...]
--- OUTSIDE RECORDS SUMMARY | 2020-05-13 21:04 | XMS REPORT | Continuity of Care Document ---
:1940 Author Organization [facility] t Address [address] [place] [address] [address] [place] [address] Care Team Providers Name Role Phone DIOMEDES Attending Clinician Unavailable Diomedes VERGARA Attending Clinician Feliberto Wilder MD Attending Clinician Renetta Lester MD Attending Clinician KENYON Attending Clinician Unavailable Kenyon VERGARA Attending Clinician Tello Crawford MD Attending Clinician RENETTA LESTER Attending Clinician Unavailable Ha Mckeon MD Attending Clinician Jos Pearson MD Attending Clinician RENETTA LESTER Admitting Clinician Unavailable Tello CRAWFORD Admitting Clinician Unavailable HA MCKEON Admitting Clinician Unavailable Payers Payer Name Policy Type Policy Number Effective Date Expiration Source Date [facility] - xxxxxxxxx [facility] CAREUNITED MEDICARE Medic al HMOxxxxxxxxx [facility] REVIEWCDC xxxxxxxx [facility] REVIEWxxxxxxxxPO [facility] [id number] Center Problems Condition Condition Condition Status Onset Resolution Last Treating Co mments Source Name Details Category Date Date Treatment Clinician Date Colitis Colitis Disease Active [facility] 05-02 [facility] - [facility]: Medical 00 [place] Dehydratio Dehydratio Disease Active [facility] n 04-24 [facility] - 00:[facility]: Medical [place] Elevated Elevated Disease Active [facility] - 00:00: Medical [place] Steroid-in Steroid-in Disease Active 2019-[address] duced duced 04-24kes - hyperglyce hyperglyce 00:00: Me dical claudia claudia 00 [place] Meningioma Meningioma Disease Active [facility] 04[facility]24 [facility] - 00:[facility]: Medical [place] Renal cell Renal cell Disease Active 2019- [facility] carcinoma carcinoma 04-21 [facility] - of right of right 00:00: Medica l kidney kidney 00 [place] Fatigue Fatigue Disease Active [facility] 04[facility] - [facility]: Medical [place] Hypothyroi Hypothyroi Disease Active [facility] dism dism 04-01kes - 00:00: Medical [place] Diabetes Diabetes Disease Active [facility] mellitus mellitus 04-01 - 00:00: Medical [place] Hypertensi Hypertensi Disease Active [facility] on on 04-01 - 00:00: Medical Center 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 04-01 [facility] - 00:00: Medical [place] Diverticul Diverticul Disease Active 2019-[address] itis of itis of 03-31 - intestine intestine 00:00: Medi last with with 00 Center abscess abscess Allergies, Adverse Reactions, Alerts Allergy Allergy Status Severity Reaction(s) Onset Inactive Treating Comm ents Source Name Type Date Date Clinician Yumikoeriamena Ahujai Active Other (See hallucina [facility] to Comments) 03-31 tion [facility] - adverse 00:00: Medical reaction 00 [place] [facility] Morphine Propensi Active Rash [facility] ty to 03-31 [facility] - adverse 00:00: Medical reaction 00 [place] [facility] Family History Family Member Diagnosis Comments Start Date Stop Date Source Natural brother Cancer [facility] Natural father Cancer [facility] Natural mother Diabetes [facility] Natural mother Heart disease [facility] Natural sister Breast cancer [facility] Natural sister Cancer [facility] Social History Social Habit Start Date Stop Date Quantity Comments Source History SDOH Alcohol [facility] [place] - Std Dr[facility] Center [facility] Center Sex Assigned At [facility] History SDOH Alcohol 2020-04-21 2020-04-[address] [facility] - Frequency 00:00:00 00:00:00 Medical Center Smoking Status Start Date Stop Date Source Never smoker [facility] Medications Ordered Filled Start Stop Current Ordering Indication Dosage Frequency Signature Comments Components Source Medication Medication Date Date Medication? Clinician (SIG) Name Name ciprofloxac 2019- Yes 500mg Take [address] in HCl 05-06 tablet [facility] - (CIPRO) 500 00:00: 23:59 (500 mg Me dical MG tablet 00 :00 total) by Cente r mouth every 12 (twelve) hours for 13 days. metroNIDAZO 2019- Yes 500mg Take [address] LE (FLAGYL) 05-06 tablet [facility] - 500 MG 00:00: 23:59 (500 mg Medical tablet 00 :00 total) by Center mouth every 8 (eight) hours for 13 days. ciprofloxac 2019- No 500mg Take [address] in HCl 05-06 tablet [facility] - (CIPRO) 500 00:00: 00:00 (500 mg Me dical MG tablet 00 :00 total) by Cente r mouth every 12 (twelve) hours for 13 days. metroNIDAZO 2019- No 500mg Take [address] LE (FLAGYL) 05-06 tablet [facility] - 500 MG 00:00: 00:00 (500 mg Medical tablet 00 :00 total) by Center mouth every 8 (eight) hours for 13 days. amLODIPine 2020- Yes 5mg QD Take [address] (NORVASC) 5 04-25 tablet (5 Celina kes - MG tablet 00:00: 23:59 mg total) Me dical 00 :00 by mouth Center daily for 30 days. atorvastati 2019- 2020- No 1{tbl} QD Take [address] n (LIPITOR) 04-24 tablet by Celina kes - 80 MG 14:59: 00:00 mouth Medical tablet 28 :00 daily. Center tocilizumab 2020- No 1{dose} Inject [address] (ACTEMRA) 04-24- Dose [facility] - 162 mg/0.9 14:59: 00:00 subcutaneo Medical mL Syrg 28 :00 usly every Center 7 days Friday. insulin 2020- No QD Inject [facility] glargine 04-24 subcutaneo [facility] - (LANTUS) 14:59: 00:00 usly Medical 100 unit/mL 28 :00 nightly Cente r injection Use as directed2- 5 units depending on blood sugar . insulin 2019-0 Yes 6U QD Inject [address] glargine -07 Units [facility] - (LANTUS) 00:00: subcutaneo Med ical 100 unit/mL 00 usly Center injection nightly Use as directed2- 5 [...] 00:00 mouth Medic al 10 :00 daily. Center valACYclovi 2019-0 2020- No 1{tbl} Take [address] r (VALTREX) 04-21 09-04 tablet by Celina kes - 500 MG 18:51: 00:00 mouth as Medica l tablet 46 :00 needed. [place] fluconazole 2019-0 2020- No 400mg QD Take [address] (DIFLUCAN) 8-06 04-24 tablets [facility] - 200 MG 00:00: 23:59 (400 mg Medical tablet 00 :00 total) by Center mouth daily for 4 days. levoFLOXaci 2019- No 500mg Q24H Take [address] n 04-06-24 tablet [facility] - (LEVAQUIN) 00:00: 23:59 (500 mg Med ical 500 MG 00 :00 total) by Center tablet mouth daily for 4 days. metroNIDAZO 2019-0 2020- No 500mg Take [address] LE (FLAGYL) 04-0524 tablet [facility] - 500 MG 00:00: 23:59 (500 mg Medical tablet 00 :00 total) by Center mouth every 8 (eight) hours for 5 days. cranberry 2020- No 1{tbl} QD Take [address] fruit 8-14 08-14 tablet by [facility] - (CRANBERRY) 10:26: 00:00 mouth Medi last 450 mg Tab 02 :00 daily. [place] alpha 2019-0 Yes 1{tbl} QD Take [address] lipoic acid 8-14 tablet by Vikram es - 600 mg Cap 09:07: mouth Medica l 21 daily. [place] calcium 2019- Yes 1{tbl} QD Take [address] carbonate-v 8-14 tablet by Vikram es - itamin D3 09:07: mouth Medical (CALCIUM- 21 daily. [place] TAMIN D) 500 mg(1,250mg) -200 unit per tablet nitroglycer 2019-0 Yes 1{tbl} Place [address] in 8-14 tablet [facility] - (NITROSTAT) 09:07: under the M edical 0.4 MG SL 20 tongue as Cente r tablet needed. predniSONE 2019-0 Yes 1{tbl} Q.5D Take [address] (DELTASONE) 8-14 tablet by Vikram es - 20 MG 09:07: mouth 2 Medical tablet 20 (two) Center times daily. cycloSPORIN Yes 1[drp] Place [address] E 8-14 drop into [facility] - (RESTASIS) 09:07: both eyes Me dical 0.05 % 20 as needed. [place] ophthalmic emulsion aspirin 81 Yes 1{tbl} QD Take [address] MG EC 8-14 tablet by [facility] - tablet 08:55: mouth Medical 18 daily. [place] furosemide 2019- No 20mg Take [address] (LASIX) 20 6-17 05-06 by mouth [facility] - MG tablet 00:00: 00:00 as needed. edical 00 :00 [place] levothyroxi Yes 1{tbl} QD Take [address] ne 3-20 tablet by [facility] - (SYNTHROID, 00:00: mouth Medic al LEVOTHROID) 00 daily. [place] 75 MCG tablet losartan Yes 1{tbl} QD Take 1 [facility] (COZAAR) 3-20 tablet by [facility] - 100 MG 00:00: mouth Medical tablet 00 daily. [place] diltiazem Yes 1{tbl} QD Take [address] (DILT-XR) 2-11 tablet by [facility] - 180 mg 24 00:00: mouth Medical hr capsule 00 nightly. Cente r sertraline Yes 1{tbl} QD Take [address] (ZOLOFT) 4-18 tablet by [facility] - 100 MG 00:00: mouth Medical tablet 00 daily Noon Center time. Vital Signs Vital Name Observation Time Observation Value Comments Source Systolic blood 2020-05-06 15:24:00 147 mm[Hg] [facility] Diastolic blood 2020-05-06 15:24:00 74 mm[Hg] [facility] Heart rate 2020-05-06 15:24:00 78 /min [facility] Body temperature 2020-05-06 15:24:00 36.5 [facility] Respiratory rate 2020-05-06 15:24:00 17 /min [facility] Oxygen saturation in 2020-05-06 15:24:00 96 /min [facility] Arterial blood by Medical Ce nter Pulse oximetry Body height 2020-05-02 22:15:00 152.4 cm [facility] Body weight Measured 2020-05-02 22:15:00 61.236 kg [facility] BMI 2020-05-02 22:15:00 26.37 kg/m2 [facility] Procedures Procedure Date / Time Performing Clinician Source Performed RHYTHM STRIP - SCAN 2020-05-10 10:00:20 Provider, Default [facility] REPORT OF PROCEDURE - 2020-05-10 10:00:18 Provider, Default [facility] ECG 12-LEAD 2020-05-06 13:39:59 Unknown, Hl7 Doctor [facility] POCT-GLUCOSE METER 2020-05-06 12:38:00 Meño [facility] POCT-GLUCOSE METER 2020-05-06 07:48:00 Meño [facility] BASIC METABOLIC PANEL (7) 2020-05-06 04:04:00 Keaton Wilder i [facility] POCT-GLUCOSE METER 2020-05-05 22:10:00 Meño [facility] POCT-GLUCOSE METER 2020-05-05 17:35:00 Meño [facility] POCT-GLUCOSE METER 2020-05-05 12:00:00 Meño [facility] POCT-GLUCOSE METER 2020-05-05 08:36:00 Meño [facility] HEMOGLOBIN A1C 2020-05-05 06:09:00 Meño [facility] BASIC METABOLIC PANEL (7) 2020-05-05 06:09:00 Keaton Wilder i [facility] POCT-GLUCOSE METER 2020-05-04 22:28:00 Meño [facility] POCT-GLUCOSE METER 2020-05-04 17:33:00 Meño, [facility] POCT-GLUCOSE METER 2020-05-04 11:48:00 Meño [facility] POTASSIUM 2020-05-04 09:37:00 [facility]SE [facility] 2020-05-04 07:53:00 Meño [facility] BASIC METABOLIC PANEL (7) 2020-05-04 05:08:00 Keaton Wilder i [facility] POCT-GLUCOSE METER 2020-05-03 22:02:00 Meño [facility] C. DIFFICILE GDH TOXIN 2020-05-03 18:44:00 Lay Lester [facility] STOOL CULTURE + SHIGA 2020-05-03 18:44:00 Lay Lester [facility] FECAL LEUKOCYTES 2020-05-03 18:44:00 Lay Lester [facility] OVA AND PARASITE 2020-05-03 18:44:00 Lay Lester [facility] SHIGA TOXIN SCREEN 2020-05-03 18:44:00 Lay Lester [facility] STOOL PATH CHARGE 2020-05-03 18:44:00 Lay Lester [facility] POCT-GLUCOSE METER 2020-05-03 14:38:00 Meño [facility] BLOOD CULTURE 2020-05-03 05:54:00 Lay Lester [facility] BASIC METABOLIC PANEL (7) 2020-05-03 05:54:00 Lay Lester [facility] HEPATIC FUNCTION PANEL 2020-05-03 05:54:00 Lay Lester [facility] PROTHROMBIN TIME/INR 2020-05-03 05:54:00 Lay Lester [facility] MAGNESIUM 2020-05-03 05:54:00 Lay Lester [facility] CBC W/PLT COUNT & AUTO 2020-05-03 05:54:00 [facility] RHYTHM STRIP - SCAN 2020-04-26 13:51:12 Esther Dickson [facility] POCT-GLUCOSE METER 2020-04-24 16:31:00 Tara Crawford [facility] HEPATITIS PANEL, ACUTE 2020-04-24 15:43:00 Tara Crawford [facility] ECHO W/ CONTRAST LIMITED 2020-04-24 14:37:21 Tara Crawford [facility] POCT-GLUCOSE METER 2020-04-24 12:25:00 Tara Crawford [facility] LIPID PANEL 2020-04-24 11:15:00 Tara Crawford [facility] COMPREHENSIVE METABOLIC 2020-04-24 11:15:00 Tara Crawford [facility] POCT-GLUCOSE METER 2020-04-24 07:59:00 Tara Crawford [facility] VITAMIN B12 AND FOLATE 2020-04-24 06:43:00 Fco Tara [facility] METHYLMALONIC ACID 2020-04-24 06:43:00 Tara Crawford [facility] PROTEIN ELECTROPHORESIS, 2020-04-24 06:43:00 Tara Crawford [facility] FERRITIN 2020-04-24 06:43:00 Tara Crawford [facility] HEMOGLOBIN A1C 2020-04-24 06:43:00 Tara Crawford [facility] TSH/FREE T4 IF INDICATED 2020-04-24 06:43:00 Tara Crawford [facility] POCT-GLUCOSE METER 2020-04-23 23:06:00 Tara Crawford [facility] US ABDOMEN LIMITED 2020-04-23 20:40:00 Tara Crawford [facility] POCT-GLUCOSE METER 2020-04-23 17:29:00 Tara Crawford [facility] MR BRAIN WITH & WITHOUT 2020-04-23 16:50:00 Tara Crawford [facility] IV CONTRAST [facility] CT BRAIN WITHOUT IV 2020-04-23 09:17:00 Tara Crawford [facility] BASIC METABOLIC PANEL (7) 2020-04-23 04:02:00 Tara Crawford [facility] HEPATIC FUNCTION PANEL 2020-04-23 04:02:00 Tara Crawford [facility] CBC W/PLT COUNT & AUTO 2020-04-23 04:02:00 Tara Crawford [facility] POCT-GLUCOSE METER 2020-04-23 03:50:00 Tara Crawford [facility] POCT-GLUCOSE METER 2020-04-22 20:53:00 Tara Crawford [facility] POCT-GLUCOSE METER 2020-04-22 16:06:00 Tara Crawford [facility] POCT-GLUCOSE METER 2020-04-22 12:06:00 Tara Crawford [facility] 2D ECHO MODE W/O DOPPLER 2020-04-22 10:03:04 Tara [facility] POCT-GLUCOSE METER 2020-04-22 08:28:00 Tara Crawford [facility] BASIC METABOLIC PANEL (7) 2020-04-22 05:22:00 Tara Crawford [facility] HEPATIC FUNCTION PANEL 2020-04-22 05:22:00 Tara Crawford [facility] MAGNESIUM 2020-04-22 05:22:00 Tara Crawford [facility] PHOSPHORUS 2020-04-22 05:22:00 Tara Crawford [facility] CBC W/PLT COUNT & AUTO 2020-04-22 05:22:00 Tara Crawford [facility] SARS-COV2/RT-PCR ([facility] & 2020-04-22 00:49:00 Tara Crawford [facility] - REF LABS) [facility] POCT-GLUCOSE METER 2020-04-21 23:29:00 Tara Crawford [facility] BLOOD CULTURE 2020-04-21 21:35:00 Tara Crawford [facility] URINALYSIS W/ MICROSCOPIC 2020-04-21 21:19:00 Tara Crawford [facility] ECG 12-LEAD 2020-04-21 19:42:44 Unknown, Hl7 Doctor [facility] CBC W/PLT COUNT & AUTO 2020-04-05 06:24:00 Ronald Covington [facility] DIFFERENTIAL [facility] COMPREHENSIVE METABOLIC 2020-04-05 04:25:[address] [facility] - PANEL [facility] METABOLIC 2020-04-04 04:01:00 [facility] 2020-04-03 04:04:00 [facility] CBC W/PLT COUNT & AUTO 2020-04-03 04:04:00 [facility] - DIFFERENTIAL [facility] METABOLIC 2020-04-02 04:31:00 [facility] - PANEL [facility] CBC W/PLT COUNT & AUTO 2020-04-02 04:31:00 [place]dorys [facility] - DIFFERENTIAL [facility] COMPREHENSIVE METABOLIC 2020-04-01 04:44:00 [facility] - PANEL [facility] MAGNESIUM 2020-04-01 04:44:00 [facility] PHOSPHORUS 2020-04-01 04:44:00 [facility] s [facility] CBC W/PLT COUNT & AUTO 2020-04-01 04:44:00 [facility] - DIFFERENTIAL [facility] ANAEROBIC CULTURE 2020-03-31 18:14:00 [facility] FUNGUS CULTURE + SMEAR 2020-03-31 18:14:[address] [facility] [address] DRAINAGE ABDOMINAL 2020-03-31 18:12:[address] [facility] WOUND CULTURE + GRAM 2020-03-31 18:04:00 óGmez [facility] PT/APTT 2020-03-31 09:15:[address] [facility] MAGNESIUM 2020-03-31 09:15:[address] [facility] LACTIC ACID, VENOUS 2020-03-31 09:15:00 [facility] COMPREHENSIVE METABOLIC 2020-03-31 09:15:00 Harsh [facility] PANEL [facility] CBC W/PLT COUNT & AUTO 2020-03-31 09:15:00 Isac [facility] DIFFERENTIAL [facility] Plan of Care Planned Activity Planned Date Details Comments Source Future Scheduled 2021-01-20 Urine [facility] 00:00:00 protein (procedure) [facility] [code = 134199620] Future Scheduled 2020-11-02 Hemoglobin A1c [facility] kes - Test 00:00:[address] [facility] (procedure) [code = 93510292] Future Scheduled 2020-04-18 INFLUENZA VACCINE (#1) [facility] - Test 00:00:00 [code = INFLUENZA Medical Ce nter VACCINE (#1)] Future Scheduled 2019-07-18 Medicare IPPE (WELCOME [facility] - Test 00:00:00 TO MEDICARE) [code = Medical Center Medicare IPPE (WELCOME TO MEDICARE)] Future Scheduled 2006 PNEUMOCOCCAL [address] - Test 00:00:00 LOW/MEDIUM RISK (1 of Medica Center 2 - PCV13) [code = PNEUMOCOCCAL 65+ LOW/MEDIUM RISK (1 of 2 - PCV13)] Future Scheduled 1950 DIABETIC EYE EXAM [facility] - Test 00:00:00 [code = DIABETIC EYE Medical Center EXAM] Future Scheduled 1950 Diabetic foot [facility] - Test 00:00:00 examination Medical Center (regime/therapy) [code = 266834128] Results Test Description Test Time Test Comments Results Result Comments Source Ova and Parasite Examination 2020-05-08 12:20:00 Test Item Value Reference Range Interpretation Comme nts O&P Direct Smear (test code = No ova or parasites seen No ova or parasites seen 01954-6) O&P Concentrate Smear (test No ova or parasites seen No ova or para sites seen code = 89874-2) O&P Trichrome Smear (test code No ova or parasites seen No o va or parasites seen = 62554-0) Lab Interpretation (test code = Normal 99876-0) [facility] [id number] 12:20:00 Test Item Value Reference Range Interpretation Comments DIRECT SMEAR - O\T\P No ova or parasites No ova or parasites (BEAKER) (test code = seen seen 196) CONCENTRATE SMEAR - No ova or parasites No ova or parasites O\T\P (BEAKER) (test seen seen code = 247) TRICHROME SMEAR - No ova or parasites No ova or parasites O\T\P (BEAKER) (test seen seen code = 248) Blood Culture - Routine (Left Venipuncture)2020-05-08 08:00:00 Test Item Value Reference Range Interpretation Comments Result (test code = No growth in 5 days 6463-4) [facility] [id number] 08:00:00 Test Item Value Reference Range Interpretation Comments CULTURE (BEAKER) (test No growth in 5 days code = 1095) BLOOD [id number] 08:00:00 Test Item Value Reference Range Interpretation Comments CULTURE (BEAKER) (test No growth in 5 days code = 1095) Stool culture + Shiga [id number] 11:02:00 Test Item Value Reference Range Interpretation Comments Result (test code = No Salmonella, Shigella or 6463-4) [facility] SHIGA [id number] 11:02:00 Test Item Value Reference Range Interpretation Comments CULTURE (BEAKER) No Salmonella, Shigella (test code = 1095) or Campylobacter isolated ECG 12 [id number] 08:27:58Interface, External Ris In - 05/07/2020 8:28 AM CDTVentricular Rate 76 BPMAtrial Rate 76 BPMP-R Interval 154 msQRS Duration 84 msQ-T Interval 378 msQTC Calculation(Bazett) 425 msP [place] 19 degreesR [place] -1 degreesT [place] 32 degreesSinus rhythm with marked sinus arrhythmiaCannot rule out Inferior infarct , age undeterminedAbnormal ECGWhen compared with ECG of 21-APR-2020 19:42,No significant change wasfoundConfirmed by Ankur Leyva ([id number]) on 05/07/2020 8:27:53 [facility]-Glucose [id number] 12:51:00 Test Item Value Reference Range Interpretation Comments POC-Glucose Meter (test 255 mg/dL 70-110 H : No tified RN/MD: code = 1538) TESTED AT [address], [address]: [employer]/Techni sebastian ID = [id number] for NILTON LINDA Cheryle Lab Interpretation (test Abnormal code = 73976-4) [facility]-GLUCOSE [id number] 12:51:00 Test Item Value Reference Range Interpretation Comments POC-GLUCOSE METER 255 mg/dL 70-110 H : Notified RN/MD: (ENRICO) (test code = TESTED AT [place] [address] 1538) [facility], [address]: [employer]Techni sebastian ID = [id number] for AN KAITLIN POLLARD POCT-GLUCOSE [id number] 08:22:00 Test Item Value Reference Range Interpretation Comments POC-GLUCOSE METER 197 mg/dL 70-110 H : TESTED A T [place] [address] ([facility]) (test code = [facility], 1538) [address]: [employer]/Techni sebastian ID = [id number] for AN KAITLIN POLLARD Basic Metabolic [id number] 05:46:00 Test Item Value Reference Range Interpretation Comments Sodium (test code = 139 meq/L 743-032 6930-2) Potassium (test code 4.2 meq/L 3.5-5.1 Specime n slightly = 2823-3) hemolyzed Chloride (test code = 108 meq/L 98-107 H 2075-0) CO2 (test code = 25 meq/L 22-29 8-9) BUN (test code = 11 mg/dL 7-21 3094-0) Creatinine (test code 0.73 mg/dL 0.57-1.25 Specim en slightly = 2160-0) hemolyzed Glucose (test code = 244 mg/dL 70-105 H 2345-7) Calcium (test code = 8.1 mg/dL 8.4-10.2 L 78658-1) EGFR (test code = 77 mL/min/1.73 [place] [address]-2) NOT ACCURATE CREATININE CLEARANCE IN PREDICTING GLOMERULAR FILTRATION RATE . ESTIMATED GFR I S NOT APPLICABLE FOR DIALYSIS PATIENTS. ANGELA (test code = ANGELA) [employer] ID - EVELIA MSpecimen slightly icteric Lab Interpretation Abnormal (test code = 31130-0) [facility] METABOLIC [id number] 05:46:00 Test Item Value Reference Range Interpretation Comments SODIUM (BEAKER) 139 meq/L 136-145 (test code = 381) POTASSIUM (BEAKER) 4.2 meq/L 3.5-5.1 Specimen slightly (test code = 379) hemolyzed CHLORIDE (BEAKER) 108 meq/L 98-107 H (test code = 382) CO2 (BEAKER) (test 25 meq/L 22-29 code = 355) BLOOD UREA NITROGEN 11 mg/dL 7-21 (BEAKER) (test code = 354) CREATININE (BEAKER) 0.73 mg/dL 0.57-1.25 Specimen slightly (test code = 358) hemolyzed GLUCOSE RANDOM 244 mg/dL 70-105 H (BEAKER) (test code = 652) CALCIUM (BEAKER) 8.1 mg/dL 8.4-10.2 L (test code = 697) EGFR (BEAKER) (test 77 mL/min/1.73 ESTIMA DOMINIC GFR IS code = 1092) sq m NOT ACCURATE CREATININE CLEARANCE IN PREDICTING GLOMERULAR FILTRATION RATE . ESTIMATED GFR I S NOT APPLICABLE FOR DIALYSIS PATIEN TS. [employer] ID - EVELIA MSpecimen slightly ictericPOCT-GLUCOSE [id number] 22:22:00 Test Item Value Reference Range Interpretation Comments POC-GLUCOSE METER 323 mg/dL 70-110 H : TESTED A T [facility] 6720 (BEAKER) (test code = [facility] Leann [facility], 1538) [address]: [employer]/Techni sebastian ID = [id number] for Tai Lara POCT-GLUCOSE [id number] 17:46:00 Test Item Value Reference Range Interpretation Comments POC-GLUCOSE METER 245 mg/dL 70-110 H : TESTED A T [facility] 6720 (BEAKER) (test code = [facility], 1538) [address]: [employer]/Techni sebastian ID = [id number] for BR OWN, VAZQUEZ POCT-GLUCOSE [id number] 12:12:00 Test Item Value Reference Range Interpretation Comments POC-GLUCOSE METER 317 mg/dL 70-110 H : TESTED A T [facility] 6720 (BEAKER) (test code = [facility] Leann [facility], 1538) [address]: [employer]/Techni sebastian ID = [id number] for BR OWN, VAZQUEZ Shiga Toxin [id number] 10:32:00 Test Item Value Reference Range Interpretation Comments Shiga toxin 1 (test code = Not detected Not detected 52826-8) Shiga toxin 2 (test code = Not detected Not detected 49135-0) Lab Interpretation (test code = Normal 53698-0) [facility] [id number] 10:32:00 Test Item Value Reference Range Interpretation Comments SHIGA TOXIN 1 (BEAKER) (test Not detected Not detected code = 2177) SHIGA TOXIN 2 (BEAKER) (test Not detected Not detected code = 2179) STOOL PATH [id number] 10:15:00 Test Item Value Reference Range Interpretation Comments Pathogen exam charged (test code = Done 2381) [facility] [id number] 10:15:00 Test Item Value Reference Range Interpretation Comments PATHOGEN EXAM CHARGED (BEAKER) (test Done code = 2381) POCT-GLUCOSE [id number] 08:57:00 Test Item Value Reference Range Interpretation Comments POC-GLUCOSE METER 205 mg/dL 70-110 H : TESTED A T [facility] 6720 (BEAKER) (test code = [facility], 1538) 029[address]: [employer]/Techni sebastian ID = [id number] for BR OWN, VAZQUEZ Hemoglobin [id number] 08:19:00 Test Item Value Reference Range Interpretation Comments Hemoglobin A1C (test code = 4548-4) 8.4 % 4.3-6.1 H Lab Interpretation (test code = Abnormal 61819-9) [facility] [id number] 08:19:00 Test Item Value Reference Range Interpretation Comments HEMOGLOBIN A1C (BEAKER) (test code = 8.4 % 4.3-6.1 H 368) BASIC METABOLIC [id number] 07:56:00 Test Item Value Reference Range Interpretation Comments SODIUM (BEAKER) 141 meq/L 136-145 (test code = 381) POTASSIUM (BEAKER) 4.5 meq/L 3.5-5.1 (test code = 379) CHLORIDE (BEAKER) 110 meq/L 98-107 H (test code = 382) CO2 (BEAKER) (test 26 meq/L 22-29 code = 355) BLOOD UREA NITROGEN 12 mg/dL 7-21 (BEAKER) (test code = 354) CREATININE (BEAKER) 0.73 mg/dL 0.57-1.25 (test code = 358) GLUCOSE RANDOM 229 mg/dL 70-105 H (BEAKER) (test code = 652) CALCIUM (BEAKER) 7.8 mg/dL 8.4-10.2 L (test code = 697) EGFR (BEAKER) (test 77 mL/min/1.73 ESTIMA DOMINIC GFR IS code = 1092) sq m NOT ACCURATE CREATININE CLEARANCE IN PREDICTING GLOMERULAR FILTRATION RATE . ESTIMATED GFR I S NOT APPLICABLE FOR DIALYSIS PATIEN TS. [employer] ID - HEIDIAYA LSpecimen slightly ictericPOCT-GLUCOSE [id number] 22:55:00 Test Item Value Reference Range Interpretation Comments POC-GLUCOSE METER 229 mg/dL 70-110 H : TESTED A T [facility] 6720 (BEAKER) (test code = [facility] Norie[facility], 1538) [address]1997: [employer]/Techni sebastian ID = [id number] for Karla Jackson POCT-GLUCOSE [id number] 17:45:00 Test Item Value Reference Range Interpretation Comments POC-GLUCOSE METER 306 mg/dL 70-110 H : TESTED A T [facility] 6720 (BEAKER) (test code = [facility], 1538) 54790: [employer]/Techni sebastian ID = [id number] for DI EPSTEIN POCT-GLUCOSE [id number] 11:59:00 Test Item Value Reference Range Interpretation Comments POC-GLUCOSE METER 150 mg/dL 70-110 H : TESTED A T [facility] 6720 (BEAKER) (test code = [facility], 1538) 57018: [employer]/Techni sebastian ID = [id number] for DI EPSTEIN [id number] 10:18:00 Test Item Value Reference Range Interpretation Comments Potassium (test code = 4.9 meq/L 3.5-5.1 Speci men 2823-3) slightly hemolyzed ANGELA (test code = ANGELA) [employer] ID - EVELIA M Lab Interpretation Normal (test code = 28894-8) [facility] 10:18:00 Test Item Value Reference Range Interpretation Comments POTASSIUM (BEAKER) 4.9 meq/L 3.5-5.1 Specimen slightly (test code = 379) hemolyzed [employer] ID Juan A ALTAMIRANO MPOCT-GLUCOSE [id number] 08:04:00 Test Item Value Reference Range Interpretation Comments POC-GLUCOSE METER 156 mg/dL 70-110 H : TESTED A T [facility] 6720 (BEAKER) (test code = [facility], 1538) 45957: [employer]/Techni sebastian ID = [id number] for DI EPSTEIN BASIC METABOLIC [id number] 05:51:00 Test Item Value Reference Range Interpretation Comments SODIUM (BEAKER) 137 meq/L 136-145 (test code = 381) POTASSIUM (BEAKER) 5.6 meq/L 3.5-5.1 H Specimen slightly (test code = 379) hemolyzed CHLORIDE (BEAKER) 111 meq/L 98-107 H (test code = 382) CO2 (BEAKER) (test 21 meq/L 22-29 L code = 355) BLOOD UREA NITROGEN 10 mg/dL 7-21 (BEAKER) (test code = 354) CREATININE (BEAKER) 0.71 mg/dL 0.57-1.25 Specimen slightly (test code = 358) hemolyzed GLUCOSE RANDOM 158 mg/dL 70-105 H (BEAKER) (test code = 652) CALCIUM (BEAKER) 7.8 mg/dL 8.4-10.2 L (test code = 697) EGFR (BEAKER) (test 80 mL/min/1.73 ESTIMA DOMINIC GFR IS code = 1092) sq m NOT ACCURATE CREATININE CLEARANCE IN PREDICTING GLOMERULAR FILTRATION RATE . ESTIMATED GFR I S NOT APPLICABLE FOR DIALYSIS PATIEN TS. [employer] ID - PIAYA LSpecimen slightly ictericClostridium difficile GDH Toxin 2020-05-04 05:03:00 Test Item Value Reference Range Interpretation Comments C. Difficle Toxin Negative Negative (test code = 2924602273) C. Difficile GDH Positive Negative A C. difficil e Antigen (test code = present but toxin [id number]) not detected. Indicates colonization wi th non-toxigenic strain or level of toxin below detectable levels. No nee d for enteric isolation. Treatment is rarely needed (only when stro ng clinical suspicion for Clostridium difficile infection) ANGELA (test code = Testing performed ANGELA) by Alere Rapid Cassette Assay. For GDH, published sensitivity of the assay is 98.7% compared to cytotoxicity testing. For Toxin AB, published sensitivity is 87.8% and specificity 99.4% compared to cytotoxicity testing.Verificati on of kit performance was done by the [facility] Microbiology Lab prior to clinical use. Lab Interpretation Abnormal (test code = 11343-6) [facility]. DIFFICILE GDH [id number] 05:03:00 Test Item Value Reference Range Interpretation Comments CDT TOXIN (test code Negative Negative = [id number]) CDT GDH ANTIGEN Positive Negative A C. difficile present but (test code = toxin not detec dominic. [id number]) Indicates colon ization with non-toxige faith strain or level of tox in below detectable leve ls. No need for enteri c isolation. Maxwell atment is rarely needed ( only when strong clinical suspicion for Clostridium difficile infection) Testing performed by Alere Rapid Cassette Assay. For GDH, published sensitivity of the assay is 98.7% compared to cytotoxicity testing. For Toxin AB, published sensitivity is 87.8% and specificity 99.4% compared to cytotoxicity testing.Verification of kit performance was done by the [facility] Microbiology Lab prior to clinical use.Fecal [id number] 00:34:00 Test Item Value Reference Range Interpretation Comments Fecal Leukocytes (test No fecal leukocytes No fecal leukocytes code = 22754-0) seen seen Lab Interpretation Normal (test code = 97574-7) [facility]ECAL [id number] 00:34:00 Test Item Value Reference Range Interpretation Comments FECAL LEUKOCYTES No fecal leukocytes No fecal leukocytes (BEAKER) (test code = seen seen 992) POCT-GLUCOSE [id number] 22:14:00 Test Item Value Reference Range Interpretation Comments POC-GLUCOSE METER 224 mg/dL 70-110 H : TESTED A T [facility] 6720 (BEAKER) (test code = [facility], 1538) 68999: [employer]/Techni sebastian ID = [id number] for SHAHZAD BRUCE POCT-GLUCOSE [id number] 14:51:00 Test Item Value Reference Range Interpretation Comments POC-GLUCOSE METER 120 mg/dL 70-110 H : TESTED A T [facility] 6720 (BEAKER) (test code = [facility], 1538) 07833: [employer]/Techni sebastian ID = [id number] for MIYA CAVAZOS BASIC METABOLIC [id number] 11:35:00 Test Item Value Reference Range Interpretation Comments SODIUM (BEAKER) 141 meq/L 136-145 (test code = 381) POTASSIUM (BEAKER) 2.9 meq/L 3.5-5.1 L (test code = 379) CHLORIDE (BEAKER) 109 meq/L 98-107 H (test code = 382) CO2 (BEAKER) (test 27 meq/L 22-29 code = 355) BLOOD UREA NITROGEN 19 mg/dL 7-21 (BEAKER) (test code = 354) CREATININE (BEAKER) 0.77 mg/dL 0.57-1.25 (test code = 358) GLUCOSE RANDOM 76 mg/dL 70-105 (BEAKER) (test code = 652) CALCIUM (BEAKER) 7.8 mg/dL 8.4-10.2 L (test code = 697) EGFR (BEAKER) (test 72 mL/min/1.73 ESTIMA DOMINIC GFR IS code = 1092) sq m NOT ACCURATE CREATININE CLEARANCE IN PREDICTING GLOMERULAR FILTRATION RATE . ESTIMATED GFR I S NOT APPLICABLE FOR DIALYSIS PATIEN TS. [employer] ID - EVELIA MSpecimen slightly ictericHepatic function [id number] 11:32:00 Test Item Value Reference Range Interpretation Comments Protein, Total (test code 4.5 6.0- 8.3 gm/dL L = 2885-2) Albumin (test code = 3.0 g/dL 3.5-5 L 24185-7) Total Bilirubin (test 0.6 mg/dL 0.2-1.2 code = 1975-2) Bilirubin, Direct (test 0.3 mg/dL 0.1-0.5 code = 1968-7) Alkaline Phosphatase 48 U/L 40-150 (test code = 6768-6) AST (test code = 1920-8) 40 U/L 5-34 H ALT (test code = 1742-6) 107 U/L 6-55 H ANGELA (test code = ANGELA) [employer] ID - EVELIA MSpecimen slightly icteric Lab Interpretation (test Abnormal code = 82002-5) [facility]2020-09-16 11:32:00 Test Item Value Reference Range Interpretation Comments Magnesium (test code = 1.9 mg/dL 1.6-2.6 56654-5) ANGELA (test code = ANGELA) [employer] ID - EVELIA M Lab Interpretation (test Normal code = 27277-3) [facility]2020-09-16 11:32:00 Test Item Value Reference Range Interpretation Comments MAGNESIUM (BEAKER) (test code = 1.9 mg/dL 1.6-2.6 627) [employer] ID - EVELIA MHEPATIC FUNCTION [id number] 11:32:00 Test Item Value Reference Range Interpretation Comments TOTAL PROTEIN (BEAKER) (test code = 4.5 gm/dL 6.0-8.3 L 770) ALBUMIN (BEAKER) (test code = 1145) 3.0 g/dL 3.5-5.0 L BILIRUBIN TOTAL (BEAKER) (test code 0.6 mg/dL 0.2-1.2 = 377) BILIRUBIN DIRECT (BEAKER) (test 0.3 mg/dL 0.1-0.5 code = 706) ALKALINE PHOSPHATASE (BEAKER) (test 48 U/L 40-150 code = 346) AST (SGOT) (BEAKER) (test code = 40 U/L 5-34 H 353) ALT (SGPT) (BEAKER) (test code = 107 U/L 6-55 H 347) [employer] TIARA - EVELIA Ramon slightly ictericProthrombin time/[id number] 07:18:00 Test Item Value Reference Range Interpretation Comments Protime (test code = 14.7 11.9- 14.2 H 5902-2) seconds INR (test code = 1.18 <=5.90 6301-6) ANGELA (test code = ANGELA) Effective 01/13/2019: PT Reference Range ChangeNew: 11.9-14.2 Previous: 11.7-14.7 RECOMMENDED COUMADIN/WARFARIN INR THERAPY RANGESSTANDARD DOSE: 2.0-3.0 Includes: PROPHYLAXIS for venous thrombosis, systemic embolization; TREATMENT for venous thrombosis and/or pulmonary embolus.HIGH RISK: Target INR is 2.5-3.5 for patients wiht mechanical heart valves. Lab Interpretation Abnormal (test code = 23180-2) [facility] HospitalPROTHROMBIN [facility]/[id number] 07:18:00 Test Item Value Reference Range Interpretation Comments PROTIME (BEAKER) (test code = 14.7 seconds 11.9-14.2 H 759) INR (BEAKER) (test code = 370) 1.18 <=5.90 Effective 01/13/2019: PT Reference Range ChangeNew: 11.9-14.2 Previous: 11.7- 14.7RECOMMENDED COUMADIN/WARFARIN INR THERAPY RANGESSTANDARD DOSE: 2.0-3.0 Includes: PROPHYLAXIS for venous thrombosis, systemic embolization; TREATMENT for venous thrombosis and/or pulmonary embolus.HIGH RISK: Target INR is2.5-3.5 for patients wiht mechanical heart valves.CBC with platelet count + automated [id number] 07:11:00 Test Item Value Reference Range Interpretation Comments WBC (test code = 6690-2) 6.2 3.5- 10.5 K/L RBC (test code = 789-8) 3.99 3.93- 5.22 M/L MCHC (test code = 786-4) 32.3 32.2- 35.5 GM/DL Hematocrit (test code = 4544-3) 37.2 % 34.1-44.9 MCV (test code = 787-2) 93.2 fL 79.4-94.8 MCH (test code = 785-6) 30.1 pg 25.6-32.2 RDW (test code = 788-0) 15.1 % 11.7-14.4 H Platelets (test code = 777-3) 98 150- 450 K/CU MM L MPV (test code = 12451-5) 10.9 fL 9.4-12.3 nRBC (test code = 413) 0 0- 0 /100 WBC % Neutros (test code = 429) 72 % % Lymphs (test code = 430) 17 % % Monos (test code = 431) 10 % % Eos (test code = 432) 1 % % Baso (test code = 437) 0 % # Neutros (test code = 670) 4.41 1.56- 6.13 K/L # Lymphs (test code = 414) 1.02 1.18- 3.74 K/L L # Monos (test code = 415) 0.60 0.24- 0.36 K/L H # Eos (test code = 416) 0.07 0.04- 0.36 K/L # Baso (test code = 417) 0.01 0.01- 0.08 K/L Immature Granulocytes-Relative 1 % 0-1 (test code = 2801) Lab Interpretation (test code = Abnormal 21005-1) [facility] W/PLT COUNT & AUTO [id number] 07:11:00 Test Item Value Reference Range Interpretation Comments WHITE BLOOD CELL COUNT (BEAKER) 6.2 K/ L 3.5-10.5 (test code = 775) RED BLOOD CELL COUNT (BEAKER) 3.99 M/ L 3.93-5.22 (test code = 761) HEMOGLOBIN (BEAKER) (test code = 12.0 GM/DL 11.2-15.7 410) HEMATOCRIT (BEAKER) (test code = 37.2 % 34.1-44.9 411) MEAN CORPUSCULAR VOLUME (BEAKER) 93.2 fL 79.4-94.8 (test code = 753) MEAN CORPUSCULAR HEMOGLOBIN 30.1 pg 25.6-32.2 (BEAKER) (test code = 751) MEAN CORPUSCULAR HEMOGLOBIN CONC 32.3 GM/DL 32.2-35.5 (BEAKER) (test code = 752) RED CELL DISTRIBUTION WIDTH 15.1 % 11.7-14.4 H (BEAKER) (test code = 412) PLATELET COUNT (BEAKER) (test code 98 K/CU MM 150-450 L = 756) MEAN PLATELET VOLUME (BEAKER) 10.9 fL 9.4-12.3 (test code = 754) NUCLEATED RED BLOOD CELLS (BEAKER) 0 /100 WBC 0-0 (test code = 413) NEUTROPHILS RELATIVE PERCENT 72 % (BEAKER) (test code = 429) LYMPHOCYTES RELATIVE PERCENT 17 % (BEAKER) (test code = 430) MONOCYTES RELATIVE PERCENT 10 % (BEAKER) (test code = 431) EOSINOPHILS RELATIVE PERCENT 1 % (BEAKER) (test code = 432) BASOPHILS RELATIVE PERCENT 0 % (BEAKER) (test code = 437) NEUTROPHILS ABSOLUTE COUNT 4.41 K/ L 1.56-6.13 (BEAKER) (test code = 670) LYMPHOCYTES ABSOLUTE COUNT 1.02 K/ L 1.18-3.74 L (BEAKER) (test code = 414) MONOCYTES ABSOLUTE COUNT (BEAKER) 0.60 K/ L 0.24-0.36 H (test code = 415) EOSINOPHILS ABSOLUTE COUNT 0.07 K/ L 0.04-0.36 (BEAKER) (test code = 416) BASOPHILS ABSOLUTE COUNT (BEAKER) 0.01 K/ L 0.01-0.08 (test code = 417) IMMATURE GRANULOCYTES-RELATIVE 1 % 0-1 PERCENT (BEAKER) (test code = 2801) Methylmalonic [id number] 09:07:00 Test Item Value Reference Interpretation Comments Range Methlymalonic 206 nmol/L 87-318 This test was Acid,Ser (test developed and its code = 8211407) analytical p erformance characteristics havebeen determ ined by [facility] .It has not been cleare d or approved by FDA . This assay has been validatedpursua nt to the CLIA regula tions and is used for clinical purpos es. ANGELA (test code = Performing Lab ANGELA) EZ [facility] [address] [facility] [address] Shannan Singletary MD, PhD, RICHI [facility] HospitalBLOOD [id number] 23:00:00 Test Item Value Reference Range Interpretation Comments CULTURE (BEAKER) (test No growth in 5 days code = 1095) BLOOD [id number] 23:00:00 Test Item Value Reference Range Interpretation Comments CULTURE (BEAKER) (test No growth in 5 days code = 1095) Protein electrophoresis, [id number] 13:55:00 Test Item Value Reference Range Interpretation [...] = 2660) ANGELA (test code = ANGELA) [employer] ID - EVELIA M Lab Interpretation (test Abnormal code = 00624-3) [facility] HospitalPROTEIN ELECTROPHORESIS, [id number] 13:55:00 Test Item Value Reference Range Interpretation [...] and/or protein-losing enteropathy. No monoclonal bands detected. [id number] Yudith Emanuel MD (BEAKER) (test code = (electronic signature) 2616) PROTEIN TOTAL SERUM, 5.0 gm/dL 6.0-8.3 L SPEP (BEAKER) (test code = 2660) [employer] ID - EVELIA MHepatitis panel, [id number] 17:11:00 Test Item Value Reference Range Interpretation Comments Hep A IgM (test code = Nonreactive Nonreactive 65022-5) Hep B C IgM (test code = Nonreactive Nonreactive 60796-0) Hepatitis C Ab (test code = Nonreactive Nonreactive 85335-0) HBsAg Screen (test code = Nonreactive Nonreactive 5195-3) ANGELA (test code = ANGELA) [employer] ID - DB Lab Interpretation (test Normal code = 60287-1) [facility] HospitalHEPATITIS PANEL, [id number] 17:11:00 Test Item Value Reference Range Interpretation Comments HEPATITIS A IGM ANTIBODY (BEAKER) Nonreactive Nonreactive (test code = 498) HEPATITIS B CORE IGM ANTIBODY Nonreactive Nonreactive (BEAKER) (test code = 645) HEPATITIS C ANTIBODY (BEAKER) Nonreactive Nonreactive (test code = 367) HEPATITIS B SURFACE ANTIGEN (2) Nonreactive Nonreactive (BEAKER) (test code = 2585) [employer] ID - DBPOCT-GLUCOSE [id number] 16:42:00 Test Item Value Reference Range Interpretation Comments POC-GLUCOSE METER 236 mg/dL 70-110 H : TESTED A T 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 6720 (BEAKER) (test code = JEANE Noriega [place], 1538) [address]: [employer]/Techni sebastian ID = [id number] for Giulia Wade HEMOGLOBIN [id number] 12:07:00 Test Item Value Reference Range Interpretation Comments HEMOGLOBIN A1C (BEAKER) (test code = 8.0 % 4.3-6.1 H 368) Comprehensive metabolic [id number] 11:48:00 Test Item Value Reference Range Interpretation Comments Protein, Total (test 5.6 6.0- 8.3 gm/dL L Speci men code = 2885-2) slightly hemolyzed Albumin (test code = 3.4 g/dL 3.5-5 [place] n [address]-5) slightly hemolyzed Alkaline Phosphatase 79 U/L 40-150 (test code = 6768-6) Total Bilirubin (test 0.8 mg/dL 0.2-1.2 Specim en code = 1975-2) slightly hemolyzed Sodium (test code = 136 meq/L 846-824 4553-2) Potassium (test code 4.5 meq/L 3.5-5.1 Specime n = 3263-3) slightly hemolyzed Chloride (test code = 100 meq/L 98-107 2074-0) CO2 (test code = 31 meq/L 22-29 H 2027-9) BUN (test code = 24 mg/dL 7-21 H 3094-0) Creatinine (test code 0.90 mg/dL 0.57-1.25 Specim en = 2160-0) slightly hemolyzed Glucose (test code = 336 mg/dL 70-105 H 2345-7) Calcium (test code = 8.9 mg/dL 8.4-10.2 21125-6) AST (test code = 45 U/L 5-34 H Specimen 1920-8) slightly hemolyzed ALT (test code = 120 U/L 6-55 H Specimen 1742-6) slightly hemolyzed EGFR (test code = 61 mL/min/1.73 [place] [address]-3) NOT ACCURATE CREATININE CLEARANCE IN PREDICTING GLOMERULAR FILTRATION RATE . ESTIMATED GFR I S NOT APPLICABLE FOR DIALYSIS PATIENTS. ANGELA (test code = ANGELA) [employer] ID - SUSI Giovanniecimen moderately icteric Lab Interpretation Abnormal (test code = 28998-3) [facility] HospitalLipid [id number] 11:48:00 Test Item Value Reference Range Interpretation Comments Triglycerides (test 225 mg/dL Specimen code = 2571-8) slightly hemolyzed Cholesterol (test 241 mg/dL Specimen code = 2093-3) slightly hemolyzed HDL (test code = 60 mg/dL 2084-9) LDL Calculated (test 136 mg/dL code = 12278-5) ANGELA (test code = Triglyceride ANGELA) Reference Range: Low Risk <150 Borderline 150-199 High Risk 200-499 Very High Risk >=500 Cholesterol Reference Range: Low Risk <200 Borderline 200-239 High Risk >240 HDL Cholesterol Reference Range: Low Risk >=60 High Risk <40 LDL Cholesterol Reference Range: Optimal <100 Near Optimal 100-129 Borderline 130-159 High 160-189 Very High >=190 [employer] ID Juan A Davilaecimen moderately icteric [facility] HospitalCOMPREHENSIVE METABOLIC [id number] 11:48:00 Test Item Value Reference Range Interpretation [...] hemolyzed EGFR (BEAKER) (test 61 mL/min/1.73 ESTIMA DOMINIC GFR IS code = 1092) sq m NOT ACCURATE CREATININE CLEARANCE IN PREDICTING GLOMERULAR FILTRATION RATE . ESTIMATED GFR I S NOT APPLICABLE FOR DIALYSIS PATIEN TS. [employer] ID - SUSI MSpecimen moderately ictericLIPID [id number] 11:48:00 Test Item Value Reference Range Interpretation Comments TRIGLYCERIDES (BEAKER) 225 mg/dL Speci men slightly (test code = 540) hemolyzed CHOLESTEROL (BEAKER) 241 mg/dL Specime n slightly (test code = 631) hemolyzed HDL CHOLESTEROL (BEAKER) 60 mg/dL (test code = 976) LDL CHOLESTEROL 136 mg/dL CALCULATED (BEAKER) (test code = 633) Triglyceride Reference Range: Low Risk <150 Borderline 150-199 High Risk 200-499 Very High Risk >=500Cholesterol Reference Range: Low Risk <200 Borderline 200-239 High Risk >240HDL Cholesterol Reference Range: Low Risk >=60 High Risk <40LDL Cholesterol Reference Range: Optimal <100 Near Optimal 100-129 Borderline 130-159 High 160-189 Very High >=190 [employer] ID - SUSI MSpecimen moderately ictericTSH/Free T4 If [id number] 10:29:00 Test Item Value Reference Range Interpretation Comments TSH (test code = 3.805 0.350- 4.940 uIU/mL 01984-9) ANGELA (test code = ANGELA) [employer] ID - AAHAMID Lab Interpretation (test Normal code = 09677-7) [facility] HospitalTSH/FREE T4 IF [id number] 10:29:00 Test Item Value Reference Range Interpretation Comments THYROID STIMULATING HORMONE 3.805 uIU/mL 0.350-4.940 (BEAKER) (test code = 772) [employer] ID - JZFEURHVmfktdnb4407-53-87 09:30:00 Test Item Value Reference Range Interpretation Comments Ferritin (test code = 292.76 ng/mL 5-275 H 2276-4) ANGELA (test code = ANGELA) [employer] ID - AAHAMID Lab Interpretation (test Abnormal code = 14997-6) [facility] HospitalVitamin B12 and [id number] 09:30:00 Test Item Value Reference Range Interpretation Comments Vitamin B12 (test code = 1155 pg/mL 213-816 H 2132-9) Folate (test code = 8.50 ng/mL >=7.00 2284-8) ANGELA (test code = ANGELA) [employer] ID - AAHAMID Lab Interpretation (test Abnormal code = 80197-3) [facility] HospitalFERRITIN2020 09:30:00 Test Item Value Reference Range Interpretation Comments FERRITIN (BEAKER) (test code = 292.76 ng/mL 5.00-275.00 H 361) [employer] ID - AAHAMIDVITAMIN B12 AND [id number] 09:30:00 Test Item Value Reference Range Interpretation Comments VITAMIN B12 (BEAKER) (test code = 1155 pg/mL 213-816 H 774) FOLATE (BEAKER) (test code = 362) 8.50 ng/mL >=7.00 [employer] ID - AAHAMIDPOCT-GLUCOSE [id number] 08:10:00 Test Item Value Reference Range Interpretation Comments POC-GLUCOSE METER 197 mg/dL 70-110 H : TESTED A T [facility] 6720 (BESONYA) (test code = [place], 1538) [address]: [employer]/Techni sebastian ID = [id number] for Id Giulia mckee, BRAIN, [id number] 02:52:00Unlisted Reason for Exam - Click Yes [...] likely due to collateral veins. Signed: Rao Keating MDReport Verified Date/Time: 04/24/2020 02:52:33 MR brain without & with IV [id number] 02:52:00Interface, External Ris In - 04/24/2020 2:54 [...] likely due to collateral veins. Signed: Rao Keating MDReport Verified Date/Time: 04/24/2020 02:52:33 [facility] 2020-04-23 23:25:00Abdomen limited [...] Cholecystectomy and right nephrectomy. . Signed: Rao Keating MDReport Verified Date/Time: 04/23/2020 23:25:58 US abdomen [id number] 23:25:00 Interface, External Ris In - 04/23/2020 [...] Cholecystectomy and right nephrectomy. . Signed: Rao Keating MDReport Verified Date/Time: 04/23/2020 23:25:58 [facility] [id number] 23:17:00 Test Item Value Reference Range Interpretation Comments POC-GLUCOSE METER 206 mg/dL 70-110 H : TESTED A T [facility] 67 (ENRICO) (test code = GELACIOKINSEY Noriega [facility], 1538) [address]: [employer]/Techni sebastian ID = [id number] for RONEL MUSTAFAA POCT-GLUCOSE [id number] 17:40:00 Test Item Value Reference Range Interpretation Comments POC-GLUCOSE METER 249 mg/dL 70-110 H : Notified RN/MD: (ENR[place]) (test code = TESTED AT [facility] 6720 1538) [facility] [address]: [employer]/Techni sebastian ID = [id number] for Vi ctor, Jazmin CT, BRAIN, WITHOUT [id number] 10:32:00Unlisted Reason for Exam - Click Yes [...] Date/Time: 04/23/2020 10:32:40 CT brain without IV [id number] 10:32:00Interface, External Ris In - 04/23/2020 10:34 [...] Stephanie Rangel MDReport Verified Date/Time: 04/23/2020 10:32:40 [facility] W/PLT COUNT & AUTO DIFFERENTIAL 2020-04-23 05:31:00 Test Item Value Reference Range [...] 0-1 PERCENT (BEAKER) (test code = 2801) BASIC METABOLIC [id number] 05:03:00 Test Item Value Reference Range Interpretation [...] 697) EGFR (BEAKER) (test 69 mL/min/1.73 ESTIMA DOMINIC GFR IS code = 1092) sq m NOT ACCURATE CREATININE CLEARANCE IN PREDICTING GLOMERULAR FILTRATION RATE . ESTIMATED GFR I S NOT APPLICABLE FOR DIALYSIS PATIEN TS. [employer] ID - EVELIA Leaimedorys moderately ictericHEPATIC FUNCTION [id number] 05:03:00 Test Item Value Reference Range Interpretation [...] Specimen moderately (test code = 347) hemolyzed [employer] ID - EVELIA Leaimedorys moderately ictericPOCT-GLUCOSE [id number] 04:01:00 Test Item Value Reference Range Interpretation Comments POC-GLUCOSE METER 193 mg/dL 70-110 H : TESTED A T [facility] 6720 (BEAKER) (test code [facility], = 1538) [address]: [employer]/Techni sebastian ID = [id number] for RUSSELL , ESME POCT-GLUCOSE [id number] 21:04:00 Test Item Value Reference Range Interpretation Comments POC-GLUCOSE METER 198 mg/dL 70-110 H : TESTED A T [facility] 6720 (BEAKER) (test code = [facility], 1538) [address]: [employer]/Techni sebastian ID = [id number] for Alla Molina 2D Echo W/O Doppler(No Doppler)2020-04-22 16:55:47Ejection FractionSLEH ECHO HEARTLAB MKCKESSON CPACSInterface, External Ris In - 04/22/2020 4:55 PM C DTTransthoracic Echocardiography Report (TTE) Demographics Patient Name TUNDE WELLER Date of Study 04/22/2020 DARRION Gender Female Visit Number [id number] Race Unknown Room Number 1550 Number Date of 1940 Referring Fco Monte Physician Age 79 year(s) 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 All of the LV segmentsare hyperkinetic . Global LV systolic function hyperdynamic . LVEF by Butts's method of disk assessment is increased (>70%) . Intracavitary gradient at rest is 25mmHg and with Valsalva maneuver ty37zkRo. Grade 1 diastolic dysfunction (impaired relaxation and [...] CO: 5.65 l/min LVOT CI: 3.65 l/min/m^2[facility]PO[facility] [id number] 16:17:00 Test Item Value Reference Range Interpretation Comments POC-GLUCOSE METER 266 mg/dL 70-110 H : TESTED A T [facility] 6720 (JOEYAKER) (test code = JEANE Leann [facility], 1538) [address]: [employer]/Techni sebastian ID = [id number] for BRUCE DUMONT SARS-CoV2/RT-PCR (Asymptomatic ONLY)2020-04-22 14:59:00 Test Item Value Reference Range Interpretation Comments SARS-COV2/RT-PCR Negative Not Detected, (test code = Negative, See 63020-8) external report for linked test SARS-COV-2 [facility] ROLY PERFORMING LAB (test code = 68444-6) ANGELA (test code = Negative result for [...] of the Act. Fact Sheet for Healthcare Providers:https://www.[employer]/sites/default/f adrian/product/documents/F act_Sheet_HC_Providers_L rns_JIYP-WeA-4.pdf Fact Sheet for Healthcare Patients:https://www.Site Tour/sites/default/fi les/product/documents/Fa ct_Sheet_Patients_Lyra_S ARS-CoV-2.pdf Performing Laboratory:[facility], [place] [address] [place], [place] [address]ARS-COV2/RT-PCR ([facility])2020-04-22 14:59:00 Test Item Value Reference Range Interpretation Comments SARS-COV2/RT-PCR (test Negative Not Detected, Negative, code = 3297537) See external report for linked test SARS-COV-[address] [facility] ROLY (test code = 1697370) Negative result for this test determines that [...] 564(g) of the Act.Fact Sheet for Healthcare Providers:https://www.[employer].Bleachers/sites/default/files/product/documents/Fact_Shee g_RL_Afafdvicz_Dhxa_NVRS-OkO-7.pdfFact Sheet for Healthcare Patients:https://www.[employer]achers/sites/default/files/product/ documents/Dywb_Hkyzp_Qguswoxo_Tyuz_UZEH-OrF-9.pdfPerforming Laboratory:[facility], [place] [address]DJEL-LODZYTD METER 2020-04-22 12:21:00 Test Item Value Reference Range Interpretation Comments POC-GLUCOSE METER 210 mg/dL 70-110 H : TESTED A T [facility] 6720 (JOEYSONYA) (test code = JEANE Noriega [facility], 1538) [address]: [employer]/Techni sebastian ID = [id number] for BRUCE DUMONT [id number] 11:00:00 Test Item Value Reference Range Interpretation Comments Phosphorus (test code = 3.1 mg/dL 2.3-4.7 2777-1) ANGELA (test code = ANGELA) [employer] ID - EVELIA M Lab Interpretation (test Normal code = 97293-0) [facility]05 11:00:00 Test Item Value Reference Range Interpretation Comments PHOSPHORUS (BEAKER) (test code = 3.1 mg/dL 2.3-4.7 604) [employer] ID - EVELIA [id number] 11:00:00 Test Item Value Reference Range Interpretation Comments MAGNESIUM (BEAKER) (test code = 1.9 mg/dL 1.6-2.6 627) [employer] ID - EVELIA MBASIC METABOLIC [id number] 11:00:00 Test Item Value Reference Range Interpretation [...] 697) EGFR (BEAKER) (test 67 mL/min/1.73 ESTIMA DOMINIC GFR IS code = 1092) sq m NOT ACCURATE CREATININE CLEARANCE IN PREDICTING GLOMERULAR FILTRATION RATE . ESTIMATED GFR I S NOT APPLICABLE FOR DIALYSIS PATIEN TS. [employer] ID - EVELIA MSpecimen moderately ictericHEPATIC FUNCTION [id number] 11:00:00 Test Item Value Reference Range Interpretation [...] code = 112 U/L 6-55 H 347) [employer] ID - EVELIA MSpecimen moderately ictericPOCT-GLUCOSE [id number] 08:40:00 Test Item Value Reference Range Interpretation Comments POC-GLUCOSE METER 187 mg/dL 70-110 H : TESTED A T [facility] 6720 (BEAKER) (test code = JEANE Noriega [place], 1538) [address]: [employer]/Techni sebastian ID = [id number] for BRUCE DUMONT CBC W/PLT COUNT & AUTO [id number] 07:04:00 Test Item Value Reference Range Interpretation [...] PERCENT (BEAKER) (test code = 2801) POCT-GLUCOSE [id number] 23:41:00 Test Item Value Reference Range Interpretation Comments POC-GLUCOSE METER 211 mg/dL 70-110 H : TESTED A T [facility] 6720 (BEAKER) (test code = [facility] Norie[facility], 1538) [address]: [employer]/Techni sebastian ID = [id number] for SHABBIR BEAN Urinalysis w/[id number] 21:58:00 Test Item Value Reference Range Interpretation Comments Color, UA (test code = Light Yellow 5778-6) Clarity, UA (test code = Clear 5767-9) Specific [place], UA (test 1.029 1.001-1.035 code = 5811-5) pH, UA (test code = 6.0 5.0-8.0 5803-2) Protein, UA (test code = Negative Negative 85391-7) Glucose, UA (test code = 30 mg/dL Negative A 365) Ketones, UA (test code = Negative Negative 2514-8) Bilirubin, UA (test code = Negative Negative 84143-4) Blood, UA (test code = Negative Negative 99018-9) Nitrite, UA (test code = Negative Negative 5802-4) Leukocytes, UA (test code Trace Negative A = 5799-2) Urobilinogen, UA (test 0.2 mg/dL 0.2-1 code = 35155-5) RBC, UA (test code = 1 /HPF 07807-4) WBC, UA (test code = 3 /HPF 5821-4) Squam Epithel, UA (test <1 /HPF code = 13007-9) Specimen Source (test code = 2795) ANGELA (test code = ANGELA) [employer] ID - [auto][employer] ID - steve Lab Interpretation (test Abnormal code = 56476-4) [facility]/ [id number] 21:58:00 Test Item Value Reference Range Interpretation [...] = 516) SOURCE(BEAKER) (test code = 2795) [employer] ID - [auto][employer] ID - hankFungus culture + [id number] 18:07:00 Test Item Value Reference Range Interpretation Comments Result (test code = 3+ Lorri albicans A 6463-4) Fungus Smear (test code = No fungi seen 1406) Lab Interpretation (test Abnormal code = 07519-0) [facility] + [id number] 18:07:00 Test Item Value Reference Range Interpretation Comments CULTURE (BEAKER) A 3+ Lorri albicans (test code = 1095) FUNGUS SMEAR No fungi seen (BEAKER) (test code = 1406) Anaerobic [id number] 18:52:00 Test Item Value Reference Range Interpretation Comments Result (test code = No anaerobes isolated 6463-4) [facility] [id number] 18:52:00 Test Item Value Reference Range Interpretation Comments CULTURE (BEAKER) (test No anaerobes isolated code = 1095) CBC W/PLT COUNT & AUTO [id number] 06:39:00 Test Item Value Reference Range Interpretation [...] (BEAKER) (test code = 2801) COMPREHENSIVE METABOLIC [id number] 06:17:00 Test Item Value Reference Range Interpretation [...] hemolyzed EGFR (BEAKER) (test 69 mL/min/1.73 ESTIMA DOMINIC GFR IS code = 1092) sq m NOT ACCURATE CREATININE CLEARANCE IN PREDICTING GLOMERULAR FILTRATION RATE . ESTIMATED GFR I S NOT APPLICABLE FOR DIALYSIS PATIEN TS. [employer] ID - EVELIA MCOMPREHENSIVE METABOLIC [id number] 05:24:00 Test Item Value Reference Range Interpretation [...] 347) EGFR (BEAKER) (test 77 mL/min/1.73 ESTIMA DOMINIC GFR IS code = 1092) sq m NOT ACCURATE CREATININE CLEARANCE IN PREDICTING GLOMERULAR FILTRATION RATE . ESTIMATED GFR I S NOT APPLICABLE FOR DIALYSIS PATIEN TS. [employer] ID - EDASIWOUND CULTURE + GRAM [id number] 10:29:00 Test Item Value Reference Range Interpretation [...] <1+ budding yeast (BEAKER) (test code = 519454) CBC W/PLT COUNT & AUTO [id number] 05:33:00 Test Item Value Reference Range Interpretation [...] (BEAKER) (test code = 2801) COMPREHENSIVE METABOLIC [id number] 05:08:00 Test Item Value Reference Range Interpretation [...] 347) EGFR (BEAKER) (test 81 mL/min/1.73 ESTIMA DOMINIC GFR IS code = 1092) sq m NOT ACCURATE CREATININE CLEARANCE IN PREDICTING GLOMERULAR FILTRATION RATE . ESTIMATED GFR I S NOT APPLICABLE FOR DIALYSIS PATIEN TS. [employer] ID - EDASISpecimen slightly ictericCOMPREHENSIVE METABOLIC PANEL [...] 347) EGFR (BEAKER) (test 82 mL/min/1.73 ESTIMA DOMINIC GFR IS code = 1092) sq m NOT ACCURATE CREATININE CLEARANCE IN PREDICTING GLOMERULAR FILTRATION RATE . ESTIMATED GFR I S NOT APPLICABLE FOR DIALYSIS PATIEN TS. [employer] ID - PIAYA LSpecimen slightly ictericCBC W/PLT COUNT & AUTO [id number] 05:03:00 Test Item Value Reference Range Interpretation [...] (BEAKER) (test code = 2801) CT, DRAINAGE, [id number] 12:12:00Reason for exam:->Diverticulitis with increasing size of abscessFINAL REPORT PROCEDURE: CT, DRAINAGE, ABDOMINAL DOSE REDUCTION: The examination was performed according to departmental dose-optimization program which includes automated exposure control, adjustment of the mA and/or kV according to patient size and/or use of iterative reconstruction technique. HISTORY: Diverticulitis with increasing size of abscess [employer]: Bam Ko MD Moderate sedation: See nursing [...] dilated using serial dilators. Subsequently a 8 Qatari all-purpose drainage catheter was advanced into the [...] MDReport Verified Date/Time: 04/01/2020 12:12:30 Reading Location: [address] Transitional Reading Room CT drainage [id number] 12:12:00Interface, External Ris In - 04/01/2020 12:14 PM CDTFINAL REPORT PROCEDURE: CT, DRAINAGE, ABDOMINAL DOSE REDUCTION: The examination was performed according to departmental dose-optimization program which includes automated exposure control, adjustment of the mA and/or kV according to patient size and/or use of iterative reconstruction technique. HISTORY: Diverticulitis with increasing size of abscess [employer]: Bam Ko MD Moderate sedation: See nursing [...] dilated using serial dilators. Subsequently a 8 Qatari all-purpose drainage catheter was advanced into the [...] the mid abdominal abscess. Signed: Bam Ko Verified Date/Time: 04/01/2020 12:12:30 Reading Location: [address] Transitional Reading Room Electronicallysigned by: BAM KO MD on 04/01/2020 12:12 [facility] W/PLT COUNT & AUTO [id number] 06:34:00 Test Item Value Reference Range Interpretation [...] 0-1 PERCENT (BEAKER) (test code = 2801) [id number] 06:33:00 Test Item Value Reference Range Interpretation Comments MAGNESIUM (BEAKER) 2.0 mg/dL 1.6-2.6 Specimen slightly (test code = 627) hemolyzed [employer] ID - EVELIA [id number] 06:33:00 Test Item Value Reference Range Interpretation Comments PHOSPHORUS (BEAKER) 2.0 mg/dL 2.3-4.7 L Specimen slightly (test code = 604) hemolyzed [employer] ID - EVELIA MCOMPREHENSIVE METABOLIC [id number] 06:33:00 Test Item Value Reference Range Interpretation [...] hemolyzed EGFR (BEAKER) (test 65 mL/min/1.73 ESTIMA DOMINIC GFR IS code = 1092) sq m NOT ACCURATE CREATININE CLEARANCE IN PREDICTING GLOMERULAR FILTRATION RATE . ESTIMATED GFR I S NOT APPLICABLE FOR DIALYSIS PATIEN TS. [employer] ID - EVELIA MSpecimen slightly ictericCOMPREHENSIVE METABOLIC [...] 347) EGFR (BEAKER) (test 63 mL/min/1.73 ESTIMA DOMINIC GFR IS code = 1092) sq m NOT ACCURATE CREATININE CLEARANCE IN PREDICTING GLOMERULAR FILTRATION RATE . ESTIMATED GFR I S NOT APPLICABLE FOR DIALYSIS PATIEN TS. [employer] ID - MICHELL CSpecimen slightly [id number] 09:49:00 Test Item Value Reference Range Interpretation Comments MAGNESIUM (BEAKER) (test code = 2.1 mg/dL 1.6-2.6 627) [employer] ID - MICHELL CLactic acid, [id number] 09:45:00 Test Item Value Reference Range Interpretation Comments Lactate, Venous (test code 1.05 mmol/L 0.5-2.2 = 2872) ANGELA (test code = ANGELA) [employer] ID - MICHELL C Lab Interpretation (test Normal code = 03417-3) [facility] HospitalLACT[facility] ACID, [id number] 09:45:00 Test Item Value Reference Range Interpretation Comments LACTATE BLOOD VENOUS (2) (JOEYAKER) 1.05 mmol/L 0.50-2.20 (test code = 2872) [employer] ID - MICHELL CPT/[id number] 09:35:00 Test Item Value Reference Range Interpretation Comments Protime (test code = 13.5 11.9- 14.2 5902-2) seconds INR (test code = 1.06 <=5.90 6301-6) PTT (test code = 24.2 22.5- 36.0 18290-9) seconds ANGELA (test code = ANGELA) Effective 01/13/2019: PT Reference Range ChangeNew: 11.9-14.2 Previous: 11.7-14.7 RECOMMENDED COUMADIN/WARFARIN INR THERAPY RANGESSTANDARD DOSE: 2.0-3.0 Includes: PROPHYLAXIS for venous thrombosis, systemic embolization; TREATMENT for venous thrombosis and/or pulmonary embolus.HIGH RISK: Target INR is 2.5-3.5 for patients wiht mechanical heart valves. Lab Interpretation Normal (test code = 54550-0) [facility] HospitalPT/[id number] 09:35:00 Test Item Value Reference Range Interpretation [...] mechanical heart valves.CBC W/PLT COUNT & AUTO [id number] 09:26:00 Test Item Value Reference Range Interpretation [...] % 0-1 PERCENT (BEAKER) (test code = 4599)
[2020-05-13 22:06] LABS: Absolute Lymphocytes (CBC) 0.3 K/uL (0.7-4.9); Basophils % 0.3 % (0-1.3); Hematocrit 36.3 % (36.0-45.0); Lymphocytes % 4.3 % (15.3-44.8); MPV 8.4 fL (7.6-11.3); RBC Red Blood Cell Count 4.05 M/uL (3.86-4.86)
[2020-05-13 22:16] LABS: Protime INR 0.9
[2020-05-13 22:31] LABS: Bilirubin Direct 0.2 mg/dL (0-0.2); Bilirubin Total 0.6 mg/dL (0.2-1.0); Magnesium 2.2 mg/dL (1.8-2.4); Potassium 3.8 mmol/L (3.5-5.1); Protein, Total 5.3 g/dL (6.4-8.2); Troponin (Emerg Dept Use Only) 0.03 ng/mL (0.0-0.045)
[2020-05-13 22:33] LABS: Thyroid Stimulating Hormone 3.81 uIU/mL (0.360-3.740)
[2020-05-13 22:41] LABS: Blood Morphology Comment NOT SEEN (NOT SEEN); Platelet Estimate DECR
[2020-05-13 23:13] LABS: Toxic Granulation 1+
[2020-05-14 00:13] LABS: Urine Blood 1+ (NEG); Urine Glucose NEGATIVE (NEG); Urine Protein NEGATIVE (NEG); Urine pH 6.5 (5.0-7.0)
[2020-05-14] MEDS ORDERED: AMLODIPINE 5 MG TAB ONE (00:19)
[2020-05-14] MEDS ORDERED: PROMETHAZINE INJ 25 MG/ML AMP ONE (02:18)
[2020-05-14] MEDS ORDERED: NA CHLORIDE 0.9% 1,000 ML ONE (02:18)
--- NOTE | 2020-05-14 02:34 | ER ---
Nurse's Notes [facility] Name: Radha Ocampo Age: 79 yrs Sex: Female : 1940 Arrival Date: 05/13/2020 Time: 21:01 Bed 16 Private MD: Diagnosis: Weakness;Gastrointestinal bleeding;Thrombocytopenia, unspecified Presentation: 05/13 21:06 Chief complaint: Patient states: Generalized weakness, malaise, clammy, sweaty, nausea, ll1 and blood in stool for 2 days. No fever. Coronavirus screen: Client denies travel out of the [place] in the last 14 days. At this time, the client does not indicate any symptoms associated with coronavirus-19. Ebola Screen: Patient denies travel to an Ebola-affected area in the 21 days before illness onset. No acute neurological deficit is noted. Initial Sepsis Screen: Does the patient meet any 2 criteria? No. Patient's initial sepsis screen is negative. Risk Assessment: Do you want to hurt yourself or someone else? Patient reports no desire to harm self or others. Onset of symptoms was May 12, 2020. 21:06 Method Of Arrival: Ambulatory ll1 21:06 Acuity: CIARA 3 ll1 Stroke Activation: Symptom onset > 6 hours Physician: Stroke Attending; Name: ; Notified At: ; Arrived At: Physician: Chief Stroke Resident; Name: ; Notified At: ; Arrived At: Physician: Stroke Resident; Name: ; Notified At: ; Arrived At: Physician: ED Attending; Name: ; Notified At: ; Arrived At: Physician: ED Resident; Name: ; Notified At: ; Arrived At: Historical: - Allergies: 21:09 Morphine; ll1 21:09 meperidine HCl (rash); ll1 - PMHx: 21:09 ADD/ADHD; DM chemical induced; Hypertension; Hyperlipidemia; Giant Cell Arthritis; ll1 giant cell arteritis; Myocardial infarction; Hypothyroidism; renal cell carcinoma contained; renal cell carcinoma; Depression; stage 3 kidney failure; - PSHx: 21:09 abdominal diverticuli with abscess; ll1 - Immunization history:: Flu vaccine is up to date. - Social history:: Smoking status: Patient denies any tobacco usage or history of. Screenin:30 Abuse screen: Denies threats or abuse. Denies injuries from another. Nutritional rr5 screening: No deficits noted. Tuberculosis screening: No symptoms or risk factors identified. Fall Risk IV access (20 points). Total [place] Fall Scale indicates No Risk (0-24 pts). Assessment: 21:20 General: Appears in no apparent distress. uncomfortable, ill, Behavior is calm, rr5 cooperative, appropriate for age, Reports feeling ill for fatigue for. Pain: Complains of pain in abdomen. Neuro: Level of Consciousness is awake, alert, obeys commands, Oriented to person, place, time, situation, Reports weakness. Cardiovascular: Capillary refill < 3 seconds Patient's skin is warm and dry. 21:20 Respiratory: Airway is patent Respiratory effort is even, unlabored, Respiratory rr5 pattern is regular, symmetrical. GI: Abdomen is round Reports bloody stool, nausea, vomiting. : No signs and/or symptoms were reported regarding the genitourinary system. EENT: No signs and/or symptoms were reported regarding the EENT system. Derm: Bruising that is dark purple, on back, abdomen, right hand, left hand, right arm and left arm. Musculoskeletal: Capillary refill < 3 seconds. 21:35 Reassessment: ED provider discussed the plan of care and possible transfer to other rust facility patient agreed to it. awaiting for results. 22:00 Reassessment: Patient appears in no apparent distress at this time. Patient and/or rr5 family updated on plan of care and expected duration. Pain level reassessed. Patient is alert, oriented x 3, equal unlabored respirations, skin warm/dry/pink. no complaints made, awaiting for result. 22:20 Reassessment: Patient appears in no apparent distress at this time. CT staff informed rr5 oral contrast consumed. 23:10 Reassessment: Patient appears in no apparent distress at this time. Patient and/or rr5 family updated on plan of care and expected duration. Pain level reassessed. resting eyes closed breathing spontaneously at room air. 05/14 00:00 Reassessment: ED provider aware BP 198/74 with order made and carried out. rr5 00:15 Reassessment: Patient appears in no apparent distress at this time. Patient is alert, rr5 oriented x 3, equal unlabored respirations, skin warm/dry/pink. send to CT scan. 00:30 Reassessment: Patient appears in no apparent distress at this time. back from CT scan. rr5 01:24 Reassessment: Patient appears in no apparent distress at this time. Patient is alert, rr5 oriented x 3, equal unlabored respirations, skin warm/dry/pink. 02:11 Reassessment: Patient appears in no apparent distress at this time. Patient is alert, rr5 oriented x 3, equal unlabored respirations, skin warm/dry/pink. after the orthostatic checked patient feels nauseated. ED provider aware with order made and carried out. 03:13 Reassessment: Patient appears in no apparent distress at this time. Patient is alert, rr5 oriented x 3, equal unlabored respirations, skin warm/dry/pink. report given to dayron from [facility]. 03:40 Reassessment: Patient appears in no apparent distress at this time. awaiting for EMS. rr5 04:04 Reassessment: Patient appears in no apparent distress at this time. Patient is alert, rr5 oriented x 3, equal unlabored respirations, skin warm/dry/pink. report given to [facility] ambulance, awake alert, vital signs hemodynamically stable, no complaints made, voided on bedside commode prior to transfer. Vital Signs: 05/13 21:06 BP 152 / 72; Pulse 79; Resp 15; Temp 97.6; Pulse Ox 95% ; Pain 6/10; ll1 22:00 BP 166 / 63; Pulse 66; Resp 16; Pulse Ox 95% ; rr5 23:00 BP 179 / 61; Pulse 68; Resp 15; Pulse Ox 98% ; rr5 05/14 00:00 BP 198 / 74; Pulse 97; Resp 16; Pulse Ox 99% ; rr5 01:00 BP 151 / 60; Pulse 75; Resp 17; Pulse Ox 99% ; rr5 02:00 BP 166 / 64 Supine; Pulse 64; Resp 15; Pulse Ox 98% ; rr5 02:01 BP 167 / 73 Sitting; Pulse 82; Resp 14; Pulse Ox 99% ; rr5 02:02 BP 144 / 87 Standing; Pulse 102; Resp 16; Pulse Ox 98% ; rr5 02:58 BP 156 / 65; Pulse 65; Resp 18; Temp 98; Pulse Ox 100% ; rr5 03:13 BP 137 / 63; Pulse 63; Resp 13; Pulse Ox 97% ; rr5 04:00 BP 137 / 60; Pulse 69; Resp 15; Pulse Ox 98% ; rr5 ED Course: 05/13 20:30 Patient has correct armband on for positive identification. Placed in gown. Bed in low rr5 position. Call light in reach. Side rails up X2. design chief on. Pulse ox on. NIBP on. 21:01 Patient arrived in ED. cl3 21:08 Triage completed. ll1 21:09 Arm band placed on Patient placed in an exam room, on a stretcher. ll1 21:25 Jenn Doll FNP-C is [facility]. snw 21:25 Chano Seay MD is Attending Physician. snw 21:27 Kane Arrieta RN is Primary Nurse. rr5 21:45 Inserted saline lock: 20 gauge in left hand, using aseptic technique. Blood collected. rr5 21:50 covid. rr5 05/14 00:00 Inserted saline lock: 20 gauge in right wrist, using aseptic technique. rr5 02:06 initiated a transfer with Renuka Garcia RN from [facility]. 2 02:[address] Lester the hospitalist marketing content manager with Jenn LOMBARDO to do patient [facility] transfer consultation. 02:52 administrative approval given by Renuka Garcia RN/ patient has been accepted to [address] bed 926/ Dr. Lester has accepted the patient in transfer/ report to be called to [phone]. 04:04 No provider procedures requiring assistance completed. Patient transferred, IV remains rr5 in place. intact, No redness/swelling at site. Administered Medications: 00:17 Drug: Norvasc 5 mg Route: PO; rr5 01:23 Follow up: Response: No adverse reaction; Blood pressure is lowered rr5 02:15 Drug: Phenergan 6.25 mg Route: IVP; Site: left hand; rr5 03:15 Follow up: Response: No adverse reaction rr5 02:15 Drug: NS 0.9% 1000 ml Route: IV; Rate: 200 ml/hr; Site: left hand; rr5 04:05 Follow up: Response: No adverse reaction; IV Status: Infusion continued upon transfer; rr5 IV Intake: 400ml Point of Care Testing: Guaiac: 05/13 22:00 Stool Guaiac: Positive; Stool Hemoccult Control: Pass; rr5 Intake: 05/14 04:00 PO: 200ml; IV: 400ml; Total: 600ml. rr5 04:05 IV: 400ml; Total: 1000ml. rr5 04:00 x voided freely rr5 Output: 04:00 Other: 6; Total: 0ml. rr5 04:00 x voided freely rr5 Outcome: 02:34 ER care complete, transfer ordered by . snw 04:04 Transferred by ground EMS to [facility], Transfer form completed. rr5 04:04 Condition: stable 04:04 Instructed on the need for transfer. 04:06 Patient left the ED. rr5 Addendum: 05/17/2020 11:18 Addendum: COVID-19 Result: Negative result given to RN to notify pt. Notified pt of s s negative COVID 19 swab results. Pt advised that even with a negative test result they should remain in isolation until symptom free for 3 days without medication. Pt also advised to return to the ED for worsening symptoms. Signatures: Jenn Doll, POLICE COMMANDING OFFICER-C POLICE COMMANDING OFFICER-Csnw Kavitha Maxwell RN RN Lemuel Youngblood mw2 Kane Arrieta RN RN rr5 Merle Felipe cl3 Margarita Felipe, CONCETTA RN ll1 Corrections: (The following items were deleted from the chart) 05/14 02:59 02:58 BP 156 / 65; Pulse 65bpm; Resp 18bpm; Pulse Ox 100%; rr5 rr5
--- NOTE | 2020-05-14 02:35 | EDPHYS ---
Physician Documentation [facility] Name: Radha Ocampo Age: 79 yrs Sex: Female : 1940 Arrival Date: 05/13/2020 Time: 21:01 Bed 16 Private MD: ED Physician Chano Seay HPI: 05/13 22:10 This 79 yrs old Female presents to ER via Ambulatory with complaints of snw Weakness. 22:10 Onset: The symptoms/episode began/occurred gradually. Context: occurred while the snw patient was at rest. Associated signs and symptoms: Pertinent positives: weakness. Patient's baseline: Neuro: alert and fully oriented, Motor: no deficits, Ambulation: walks without assistance, Speech: normal. Current symptoms: fatigue/malaise. The patient has experienced a previous episode, last month. The patient has been recently seen by a physician: the patient's primary care provider, Dr. Parks pt was admitted to [facility] 05/02-05/06 for intraabdominal abscess.. Historical: - Allergies: 21:09 Morphine; ll1 21:09 meperidine HCl (rash); ll1 - PMHx: 21:09 ADD/ADHD; DM chemical induced; Hypertension; Hyperlipidemia; Giant Cell Arthritis; ll1 giant cell arteritis; Myocardial infarction; Hypothyroidism; renal cell carcinoma contained; renal cell carcinoma; Depression; stage 3 kidney failure; - PSHx: 21:09 abdominal diverticuli with abscess; ll1 - Immunization history:: Flu vaccine is up to date. - Social history:: Smoking status: Patient denies any tobacco usage or history of. ROS: 22:07 Constitutional: Negative for fever, chills, and weight loss, Eyes: Negative for injury, snw pain, redness, and discharge, ENT: Negative for injury, pain, and discharge, Neck: Negative for injury, pain, and swelling, Cardiovascular: Negative for chest pain, palpitations, and edema, Respiratory: Negative for shortness of breath, cough, wheezing, and pleuritic chest pain, Abdomen/GI: Positive for abdominal pain, loose stools, blood in stool x 2 days. Denies nausea, vomiting, and constipation, Back: Negative for injury and pain, : Negative for injury, bleeding, discharge, and swelling, MS/Extremity: Negative for injury and deformity, Skin: Negative for injury, rash, and discoloration, Neuro: Negative for headache, numbness, tingling, and seizure, + generalized weakness Psych: Negative for depression, anxiety, suicide ideation, homicidal ideation, and hallucinations. Exam: 22:04 Head/Face: Normocephalic, atraumatic. Eyes: Pupils equal round and reactive to light, snw extra-ocular motions intact. Lids and lashes normal. Conjunctiva and sclera are non-icteric and not injected. Cornea within normal limits. Periorbital areas with no swelling, redness, or edema. ENT: Nares patent. No nasal discharge, no septal abnormalities noted. Tympanic membranes are normal and external auditory canals are clear. Oropharynx with no redness, swelling, or masses, exudates, or evidence of obstruction, uvula midline. Mucous membranes moist. Neck: Trachea midline, no thyromegaly or masses palpated, and no cervical lymphadenopathy. Supple, full range of motion without nuchal rigidity, or vertebral point tenderness. No Meningismus. Chest/axilla: Normal chest wall appearance and motion. Nontender with no deformity. No lesions are appreciated. Cardiovascular: Regular rate and rhythm with a normal S1 and S2. No gallops, murmurs, or rubs. Normal PMI, no JVD. No pulse deficits. Respiratory: Lungs have equal breath sounds bilaterally, clear to auscultation and percussion. No rales, rhonchi or wheezes noted. No increased work of breathing, no retractions or nasal flaring. 22:04 Back: No spinal tenderness. No costovertebral tenderness. Full range of motion. MS/ Extremity: Pulses equal, no cyanosis. Neurovascular intact. Full, normal range of motion. Neuro: Awake and alert, GCS 15, oriented to person, place, time, and situation. Cranial nerves II-XII grossly intact. Motor strength 5/5 in all extremities. Sensory grossly intact. Cerebellar exam normal. Normal gait. Psych: Awake, alert, with orientation to person, place and time. Behavior, mood, and affect are within normal limits. 22:04 Constitutional: The patient appears alert, frail, obese, ecchymosis 22:04 Abdomen/GI: Inspection: bruising, all quadrants, left flank with ecchymosis, scar(s), are noted in the posterior aspect of right lateral abdomen, palpable tender indurated area to mid lower central abdomen, Bowel sounds: active, Palpation: mild abdominal tenderness, in the umbilical area, right lower quadrant and left lower quadrant. 22:04 Skin: Appearance: normal except for affected area, ecchymosis, noted on the, generalized, that are moderate, and are diffusely located. 22:10 Abdomen/GI: Rectal exam: rectal tone poor, Stool: guaiac positive, tenderness, that is snw mild, the exam is chaperoned by the nurse. Vital Signs: 21:06 BP 152 / 72; Pulse 79; Resp 15; Temp 97.6; Pulse Ox 95% ; Pain 6/10; ll1 22:00 BP 166 / 63; Pulse 66; Resp 16; Pulse Ox 95% ; rr5 23:00 BP 179 / 61; Pulse 68; Resp 15; Pulse Ox 98% ; rr5 05/14 00:00 BP 198 / 74; Pulse 97; Resp 16; Pulse Ox 99% ; rr5 01:00 BP 151 / 60; Pulse 75; Resp 17; Pulse Ox 99% ; rr5 02:00 BP 166 / 64 Supine; Pulse 64; Resp 15; Pulse Ox 98% ; rr5 02:01 BP 167 / 73 Sitting; Pulse 82; Resp 14; Pulse Ox 99% ; rr5 02:02 BP 144 / 87 Standing; Pulse 102; Resp 16; Pulse Ox 98% ; rr5 02:58 BP 156 / 65; Pulse 65; Resp 18; Temp 98; Pulse Ox 100% ; rr5 03:13 BP 137 / 63; Pulse 63; Resp 13; Pulse Ox 97% ; rr5 04:00 BP 137 / 60; Pulse 69; Resp 15; Pulse Ox 98% ; rr5 MDM: 05/13 21:42 Patient medically screened. snw 23:09 Data reviewed: vital signs, nurses notes. Data interpreted: Pulse oximetry: on room air snw is 95 %. Interpretation: acceptable. Counseling: I had a detailed discussion with the patient and/or guardian regarding: the historical points, exam findings, and any diagnostic results supporting the discharge/admit diagnosis, lab results, radiology results. 05/14 01:34 ED course: awaiting CT. snw 02:31 Physician consultation: Dr Sofia was called at 02:32, was contacted at 02:32, regarding snw regarding transfer, to [facility]. Dr. Sofia agrees to tele admission. Hospitalist will be paged for admit. 05/13 21:26 Order name: Basic Metabolic Panel formerly [facility] 05/13 21:26 Order name: CBC with Diff formerly [facility] 05/13 21:26 Order name: LFT's formerly [facility] 05/13 21:26 Order name: Magnesium formerly [facility] 05/13 21:26 Order name: NT PRO-BNP formerly [facility] 05/13 21:26 Order name: PT-INR formerly [facility] 05/13 21:26 Order name: Troponin (emerg Dept Use Only) formerly [facility] 05/13 21:26 Order name: TS formerly [facility] 05/13 21:26 Order name: TSH formerly [facility] 05/13 21:47 Order name: COVID-19 bb 05/13 22:23 Order name: CBC with Automated Diff; Complete Time: 23:27 EDID 05/13 22:24 Order name: Protime (+INR); Complete Time: 23:01 EDID 05/13 22:34 Order name: Basic Metabolic Panel; Complete Time: 23:01 EDID 05/13 22:34 Order name: Liver (Hepatic) Function; Complete Time: 23:01 EDID 05/13 21:26 Order name: XRAY Chest (1 view) formerly [facility] 05/13 21:26 Order name: EKG; Complete Time: 21:27 formerly [facility] 05/13 22:12 Order name: CT Abd/Pelvis - PO and IV Contrast formerly [facility] 05/13 22:34 Order name: Troponin (Emerg Dept Use Only); Complete Time: 23:01 EDID 05/13 22:34 Order name: NT PRO-BNP; Complete Time: 23:01 EDID 05/13 22:34 Order name: Magnesium; Complete Time: 23:01 EDMS 05/13 22:34 Order name: Thyroid Stimulating Hormone; Complete Time: 23:01 EDMS 05/13 22:41 Order name: Manual Differential; Complete Time: 23:27 EDMS 05/13 22:46 Order name: T4 Free; Complete Time: 23:01 EDMS 05/13 22:59 Order name: Type and Screen; Complete Time: 23:01 EDMS 05/14 00:04 Order name: Urine Dipstick--Ancillary (enter results) 2 05/14 00:13 Order name: Urine Dipstick-Ancillary; Complete Time: 00:16 EDMS 05/14 03:00 Order name: Occult Blood--Ancillary rr5 05/13 21:26 Order name: Cardiac monitoring; Complete Time: 22:08 snw 05/13 21:26 Order name: EKG - Nurse/Tech; Complete Time: 22:08 snw 05/13 21:26 Order name: IV Saline Lock; Complete Time: 22:08 snw 05/13 21:26 Order name: Labs collected and sent; Complete Time: 22:08 snw 05/13 21:26 Order name: O2 Per Protocol; Complete Time: 22:08 snw 05/13 21:26 Order name: O2 Sat Monitoring; Complete Time: 22:18 snw 05/14 01:45 Order name: Orthostatics; Complete Time: 02:10 snw EC/26 21:40 Rate is 67 beats/min. Rhythm is regular. MN interval is normal. No ST changes noted. snw Clinical impression: NSR w/ Non-specific ST/T Changes. Administered Medications: 05/14 00:17 Drug: Norvasc 5 mg Route: PO; rr5 01:23 Follow up: Response: No adverse reaction; Blood pressure is lowered rr5 02:15 Drug: Phenergan 6.25 mg Route: IVP; Site: left hand; rr5 03:15 Follow up: Response: No adverse reaction rr5 02:15 Drug: NS 0.9% 1000 ml Route: IV; Rate: 200 ml/hr; Site: left hand; rr5 04:05 Follow up: Response: No adverse reaction; IV Status: Infusion continued upon transfer; rr5 IV Intake: 400ml Point of Care Testing: Guaiac: 05/13 22:00 Stool Guaiac: Positive; Stool Hemoccult Control: Pass; rr5 Disposition: 05/14 06:03 Co-signature as Attending Physician, Chano Seay MD. [email or web address] Disposition: 05/14/20 02:[address] [facility]. Diagnosis are Weakness, Gastrointestinal bleeding, Thrombocytopenia, unspecified. - Reason for transfer: Specialty. - Accepting physician is [facility] - Dr. Lester. - Condition is Stable. - Problem is an ongoing problem. - Symptoms have worsened. Signatures: Dispatcher [employer] EDID Doll, Jenn, SKIN FORMER-C SKIN FORMER-Csnw Kane Arrieta, RN RN rr5 Margarita Felipe RN RN ll1 Chano Seay MD MD 7 Corrections: (The following items were deleted from the chart) 02:48 02:34 05/14/2020 02:[address] [facility]. snw Diagnosis is Weakness; Gastrointestinal bleeding; Thrombocytopenia, unspecified. Reason for transfer: Specialty. Accepting physician is [facility]. Condition is Stable. Problem is an ongoing problem. Symptoms have worsened. snw 04:06 02:48 05/14/2020 02:[address] [facility]. rr5 Diagnosis is Weakness; Gastrointestinal bleeding; Thrombocytopenia, unspecified. Reason for transfer: Specialty. Accepting physician is [facility] - Dr. Lester. Condition is Stable. Problem is an ongoing problem. Symptoms have worsened. snw
[2020-05-14 04:30] VITALS: TEMP 98
[2020-05-14 04:33] VITALS: BP 137/60; O2SAT 98
--- NOTE | 2020-05-14 09:17 | RAD REPORT ---
EXAM DESCRIPTION: RAD - Chest Single View - 05/13/2020 11:03 pm CLINICAL HISTORY: weakness COMPARISON: Portable May 02 TECHNIQUE: AP portable chest image was obtained 05/13/2020 11:03 pm . FINDINGS: No focal mass or consolidation. Interstitial pattern is similar to slightly increased over comparison. Heart size is normal range with vascular still within normal limits. No measurable pleur al effusion and no pneumothorax. No acute bony abnormality seen. No acute aortic findings suspected. IMPRESSION: No focal mass or consolidation. Interstitial markings are increased slightly from comparison. Patient can be monitored for developing edema or infiltrate.
--- NOTE | 2020-05-15 09:29 | RAD REPORT ---
EXAM DESCRIPTION: CT - Abdomen Pelvis W Contrast - 05/14/2020 6:45 am CLINICAL HISTORY: Abdominal pain TECHNIQUE: Contiguous axial images obtained through the abdomen and pelvis following the uneventful administration of IV contrast. Coronal and sagittal reformatted images were provided. This exam was performed according to our departmental dose-optimization program, which includes autom ated exposure control, adjustment of the mA and/or kV according to patient size and/or use of iterati ve reconstruction technique. COMPARISON: 03/31/2020 FINDINGS: Lung bases: No focal consolidation. Coronary artery and mitral annular calcification. Liver: The liver is enlarged. Hepatic parenchymal calcifications compatible with remote granulomatous organism exposure. Gallbladder and biliary system: The gallbladder is surgically absent. Mild biliary dilatation similar to the prior. Pancreas: Mild pancreatic parenchymal atrophy. Spleen: Splenic parenchymal calcifications compatible with remote granulomatous organism exposure. Adrenals: Unremarkable Kidneys: The right kidney is surgically absent. Normal left renal cortical enhancement. No calculi. N o hydronephrosis. Bowel: Postsurgical changes of the proximal stomach. Gastric, small and large bowel diverticula witho ut adjacent inflammatory change. Moderate stool. No obstruction. No appreciable mucosal thickening. Appendix: Normal caliber appendix. No findings to suggest acute appendicitis. Urinary bladder: Bilateral bladder diverticula Reproductive: There has been a hysterectomy. No adnexal cysts or masses are identified. Lymph nodes: No pathologically enlarged lymph nodes. Peritoneum: Small residual collection at site of prior abscess within the left paracentral mesentery now measuring 2.2 x 1.5 x 2.1 cm on series 501 image 49 and series 502 image 40. This previously nora ured 4.5 x 3 x 5.5 cm. No free air. Vessels: Moderate atherosclerotic disease. No abdominal aortic aneurysm. Abdominal wall: Right posterior lateral widemouthed hernia containing a portion of the liver. Bones: Multilevel spondylosis. No acute fracture. IMPRESSION: 1. Moderate stool. No obstruction. No appreciable mucosal thickening. 2. Small residual collection at site of prior abscess/microperforation within the left paracentral mesentery now measuring 2.2 x 1.5 x 2.1 cm (previously 4.5 x 3 x 5.5 cm). No free air. 3. Other findings as above. Electronically signed by: Caroline Arechiga MD 05/14/2020 1:01 AM CDT Due to temporary technical issues with the PACS/Fluency reporting system, reports are being signed by the in house radiologist without review as a courtesy to ensure prompt reporting. The interpreting r adiologist is fully responsible for the content of the report.
== END 2020-05-14 04:06 | disposition short-term general hospital (02) ==
LOC: ER 20:57
DX: K92.2 Gastrointestinal hemorrhage, unspecified (principal); D69.6 Thrombocytopenia, unspecified; Z20.828 Contact with and (suspected) exposure to other viral communicable diseases; I12.9 Hypertensive chronic kidney disease with stage 1 through stage 4 chronic kidney disease, or unspecified chronic kidney disease; N18.3 Chronic kidney disease, stage 3 (moderate); Z88.5 Allergy status to narcotic agent; Z88.8 Allergy status to other drugs, medicaments and biological substances; Z85.528 Personal history of other malignant neoplasm of kidney
CPT/HCPCS: 96361; 93005; 85025; 80048; 36415; 86900; 83735; 86850; 85610; 86901; 80076; 82272; 84443; 81003; 84484; 84439; 83880; 74177; 71045; 96374; 99285; U0002; Q9967; J2550; J7030

== ENCOUNTER 2020-06-29 16:25 | Emergency (ER) | payer OTHER ==
--- OUTSIDE RECORDS SUMMARY | 2020-06-29 16:28 | XMS REPORT | Clinical Summary ---
:1940 Author Organization [facility] Address [address] [place] [address] Care Team Providers Name Role Phone Unavailable Primary Care Provider Unavailable Allergies Active Allergy Reactions Severity Noted Date Comments Meperidine Other (See Comments) 03/31/2020 halluci nation Morphine Rash Low 03/31/2020 Medications Medication Sig Dispensed Refills Start End Status Date Date aspirin 81 MG EC Take 1 tablet by 0 Active tablet mouth daily. levothyroxine Take 1 tablet by 0 Active (SYNTHROID, mouth daily. 0 LEVOTHROID) 75 MCG tablet losartan (COZAAR) Take 1 tablet by 0 Active 100 MG tablet mouth daily. [address] 1 tablet 0 A ctive (NITROSTAT) 0.4 under the tongue MG SL tablet as needed. predniSONE Take 1 [...] Take 1 tablet (10 30 tablet 0 Active (CRESTOR) 10 MG mg total) by mouth 0 021 tablet daily. insulin glargine Inject 6 Units subcutaneously nightly Use as direc dominic 10 mL 0 Active (LANTUS) 100 2-5 units depending on blood sugar . 0 unit/mL injection insulin lispro Inject 0-8 Units 10 mL 0 Active (HUMALOG) 100 subcutaneously 3 0 021 unit/mL injection (three) times daily before meals 3 u AC plus this sliding scale insulin. needles, insulin 1 box by 1 box 0 Act ana disposable Miscellaneous 0 (INSULIN PEN route 4 (four) NEEDLES) Ndle times daily before meals and nightly. atorvastatin Take 1 tablet by 0 Discontinued (LIPITOR) 80 MG mouth daily. 020 ( Stop Taking at tablet Discharge) cranberry fruit Take 1 tablet by 0 Discontinued (CRANBERRY) 450 mouth daily. 020 mg Tab pregabalin Take 1 tablet by 0 Di scontinued (LYRICA) 50 MG mouth daily. 020 (M ed History: capsule Patient Reported M ed no longer juan francisco ing) valACYclovir Take 1 tablet by 0 Discontinued (VALTREX) 500 MG mouth as needed. 020 (Med History: tablet Patient Reported M ed no longer juan francisco ing) furosemide Take 20 mg by 0 Disco ntinued (LASIX) 20 MG mouth as needed. 0 020 (Stop Taking at tablet Discharge) tocilizumab Inject 1 Dose 0 Disc ontinued (ACTEMRA) 162 subcutaneously 020 ( Stop Taking at mg/0.9 mL Syrg every 7 days Di schamt) Friday. fluconazole Take 2 tablets 2 tablet 0 Exp ired (DIFLUCAN) 200 MG (400 mg total) by 0 020 tablet mouth daily for 4 days. levoFLOXacin Take 1 tablet (500 4 tablet 0 (LEVAQUIN) 500 MG mg total) by mouth 0 020 tablet daily for 4 days. metroNIDAZOLE Take 1 tablet (500 15 tablet 0 (FLAGYL) 500 MG mg total) by mouth 0 020 tablet every 8 (eight) hours for 5 days. insulin glargine Inject subcutaneously nightly Use as directed 0 Discontinued (LANTUS) 100 2-5 units depending on blood sugar . 020 (Reorder) unit/mL injection amLODIPine Take 1 tablet (5 30 tablet 0 Ex pired (NORVASC) 5 MG mg total) by mouth 0 020 tablet daily for 30 days. gabapentin Take 1 capsule 30 capsule 0 Dis continued (NEURONTIN) 100 (100 mg total) by 0 020 (Med History: MG capsule mouth nightly. [place] ent Reported M ed no longer juan francisco ing) ciprofloxacin HCl Take 1 tablet (500 26 tablet 0 06/10 Discontinued (CIPRO) 500 MG mg total) by mouth 0 020 tablet every 12 (twelve) hours for 13 days. metroNIDAZOLE Take 1 tablet (500 39 tablet 0 Discontinued (FLAGYL) 500 MG mg total) by mouth 0 020 tablet every 8 (eight) hours for 13 days. ciprofloxacin HCl Take 1 tablet (500 26 tablet 0 09/19 (CIPRO) 500 MG mg total) by mouth 0 020 tablet every 12 (twelve) hours for 13 days. metroNIDAZOLE Take 1 tablet (500 39 tablet 0 (FLAGYL) 500 MG mg total) by mouth 0 020 tablet every 8 (eight) hours for 13 days. Active Problems Problem Noted Date Bright red blood per rectum 05/14/2020 Colitis 05/02/2020 Dehydration 04/24/2020 Elevated LFTs 04/24/2020 Steroid-induced hyperglycemia 04/24/2020 Meningioma 04/24/2020 Renal cell carcinoma of right kidney 04/21/2020 Fatigue 04/21/2020 Hypothyroidism 04/01/2020 Diabetes mellitus 04/01/2020 Hypertension 04/01/2020 Giant cell arteritis 04/01/2020 Diverticulitis of intestine with abscess 03/31/2020 Encounters Date Type Specialty Care Team Description 05/14/2020 Hospital Encounter General Internal Lay Lester olitis; - Medicine MD Renetta Pain; 05/15/2020 Zindani, Constipation, u nspecified constipation type; MD Yoanna Anxiety; Viviana Mccullough, Nausea; Goals of care, counseling/discussion; Advance directi ve discussed with patient; DNAR (do not at tempt resuscitation); Palliative care by specialist 05/02/2020 Hospital Encounter Cardiology [place], Colitis; Juan A Padilla MD Diverticulitis of large intestine with a bscess without bleeding; 05/06/2020 Meño, Dehydration; Manasa Dao, Hypothyroidi sm, unspecified type; Steroid-induced hyperglycemia; Lay Lester Uncontrolle d hypertension MD Renetta 05/02/2020 Travel 04/21/2020 Hospital Encounter General Internal Lila Lizama ue, unspecified type; - Medicine MD Yoanna Steroid-induced hyperglycemia; 04/24/2020 Tara Eagle, Diarrhea of presumed infectious origin; Murmur, cardiac ; Transaminitis; Brain mass; Uncontrolled hy pertension; Dehydration 04/21/2020 Orders Only General Internal Medicine 04/21/2020 Documentation Internal Medicine Yoanna Lizama MD 04/02/2020 Travel 03/31/2020 Hospital Encounter Oncology Lay Lester Diver ticulitis of large intestine with abscess without bleeding; - MD Renetta Essential hypertension; 04/05/2020 Kiersten House CKD (chroni c kidney disease) stage 2, GFR 60-89 ml/min; MD Freida Dementia without behavioral disturbance, unspecified dementia type (HCC); Anil Pearson Hypothyroidi sm, unspecified type; MD Jos Giant cell andre ritis syndrome (HCC); Immunosuppresse d status (HCC) after 06/29/2019 Family History Medical History Relation Name Comments [...] Assigned at Date Recorded Not on file Last Filed Vital Signs Vital Sign Reading Time Taken Comments Blood Pressure 105/64 05/15/2020 7:29 PM CDT Pulse 112 05/15/2020 7:29 PM CDT Temperature 36.4 C (97.5 F) 05/15/2020 7:29 PM CDT Respiratory Rate 18 05/15/2020 7:29 PM CDT Oxygen Saturation 95% 05/15/2020 7:29 PM CDT Inhaled Oxygen Concentration 21% 05/05/2020 8:18 PM CDT Weight 60.8 kg (134 lb) 05/14/2020 5:33 AM CDT Height 152.4 cm (5') 05/14/2020 5:33 AM CDT Body Mass Index 26.17 05/14/2020 5:33 AM CDT Plan of Treatment Health Maintenance Due Date Last Done Comments DIABETIC EYE EXAM 1950 DIABETIC FOOT EXAM 1950 PNEUMOCOCCAL 65+ YRS (1 of 1 - 2006 [id number]) Medicare IPPE (WELCOME TO MEDICARE) 07/18/2019 INFLUENZA VACCINE (#1) 2020 HEMOGLOBIN A1C 11/11/2020 05/14/2020, 05/05/2020, 04/24/2020 URINE MICROALBUMIN 01/20/2021 01/21/2020 Procedures Procedure Name Priority Date/Time Associated Comments Diagnosis REPORT OF PROCEDURE 05/17/2020 11:50 AM - ENDOSCOPY SCAN CDT RHYTHM STRIP - SCAN 05/17/2020 11:50 AM CDT POCT-GLUCOSE METER Routine 05/15/2020 11:55 AM Re sults for this CDT procedure are i n the results section. POCT-GLUCOSE METER Routine 05/15/2020 7:45 AM Re sults for this CDT procedure are i n the results section. CBC (HEMOGRAM ONLY) Routine 05/15/2020 4:30 AM R esults for this CDT procedure are i n the results section. BASIC METABOLIC Routine 05/15/2020 4:30 AM Resul ts for this PANEL (7) CDT procedure are i n the results section. POCT-GLUCOSE METER Routine 05/14/2020 9:48 PM Re sults for this CDT procedure are i n the results section. POCT-GLUCOSE METER Routine 05/14/2020 9:07 PM Re sults for this CDT procedure are i n the results section. HEMOGLOBIN AND Routine 05/14/2020 4:32 PM Result s for this HEMATOCRIT CDT procedure are i n the results section. SARS-COV2/RT-PCR Routine 05/14/2020 12:28 PM Resu lts for this ([facility] & REF LABS) CDT procedure are in the results section. HEMOGLOBIN A1C Routine 05/14/2020 8:28 AM Result s for this CDT procedure are i n the results section. HEMOGLOBIN AND Routine 05/14/2020 8:28 AM Result s for this HEMATOCRIT CDT procedure are i n the results section. RHYTHM STRIP - SCAN 05/10/2020 10:00 AM CDT REPORT OF PROCEDURE 05/10/2020 10:00 AM - ENDOSCOPY SCAN CDT ECG 12-LEAD Routine 05/06/2020 1:39 PM CDT Procedure Note - Interface, External Ris In - 05/06/2020 1:45 PM CDT Ventricular Rate 76 BPM Atrial Rate 76 BPM P-R Interval 154 ms QRS Duration 84 ms Q-T Interval 378 ms QTC Calculation(Bazett) 425 ms P [place] 19 degrees R [place] -1 degrees T [place] 32 degrees Sinus rhythm with marked sin [...] 442 ms QTC Calculation(Bazett) 419 ms P [place] 35 degrees R [place] 7 degrees T [place] 69 degrees Sinus bradycardia Otherwise normal ECG [...] i n the results section . after 06/29/2019 Results EKG-SCANNED (05/17/2020 11:50 AM CDT)Only the most recent of2 resultswithin the time period is included. Narrative Performed At This result has an attachment that is no t available. RHYTHM STRIP - SCAN (05/17/2020 11:50 AM CDT)Only the most recent of3 results within the time period is included. Narrative Performed At This result has an attachment that is no t available. POC-Glucose meter (05/15/2020 11:55 AM CDT)Only the most recent of27 results within the time period is included. POC-Glucose Meter 145 (H)Comment: : 70 - 110 mg/dL [facility] [address], [address]: Leather Flesher/Technici an ID = [id number] for PREET, RUDDY Specimen Blood Performing Organization Address City/State/Zipcode Phone Number [address] [address] CENTER CBC (Hemogram only) (05/15/2020 4:30 AM CDT) Pathologist Sig nature WBC 6.7 3.5 - 10.5 K/L [facility] RBC 4.09 3.93 - 5.22 M/L [facility] Hemoglobin 12.3 11.2 - 15.7 GM/DL [facility] Hematocrit 38.2 34.1 - 44.9 % [facility] MCV 93.4 79.4 - 94.8 fL [facility] MCH 30.1 25.6 - 32.2 pg [facility] MCHC 32.2 32.2 - 35.5 GM/DL [facility] RDW 16.8 (H) 11.7 - 14.4 % [facility] Platelets 99 (L) 150 - 450 K/CU MM [facility] MPV 10.1 9.4 - 12.3 fL [facility] nRBC 0 0 - 0 /100 WBC [facility] Specimen Blood Performing Organization Address City/State/Zipcode Phone Number [facility] [address] [place] [address] CENTER Basic metabolic panel (05/15/2020 4:30 AM CDT)Only the most recent of7 results within the time period is included. Sodium 140 136 - 145 meq/L [facility] Potassium 4.0Comment: Specimen 3.5 - 5.1 meq/L [facility] slightly hemolyzed [facility] Chloride 103 98 - 107 meq/L [facility] CO2 26 22 - 29 meq/L [facility] BUN 13 7 - 21 mg/dL [facility] Creatinine 0.75Comment: 0.57 - 1.25 [facility] Specimen slightly mg/dL [facility] hemolyzed [place] Glucose 120 (H) 70 - 105 mg/dL [facility] Calcium 8.2 (L) 8.4 - 10.2 [facility] mg/dL [facility] EGFR 75Comment: ESTIMATED mL/min/1.73 sq [facility] GFR IS NOT m [facility] CREATININE CLEARANCE IN PREDICTING GLOMERULAR FILTRATION RATE. ESTIMATED GFR IS NOT APPLICABLE FOR DIALYSIS PATIENTS. Specimen Blood Narrative Performed At Leather Flesher TIARA Quick [facility] Specimen slightly icteric Performing Organization Address City/State/Zipcode Phone Number [facility] [address] [place] [address] CENTER Hemoglobin and hematocrit (05/14/2020 4:32 PM CDT)Only the most recent of2 resultswithin the time period is included. Pathologist Sig nature Hemoglobin 12.1 11.2 - 15.7 GM/DL [facility] Hematocrit 36.7 34.1 - 44.9 % [facility] Specimen Blood Narrative Performed At Leather Flesher ID - [id number] [facility] Performing Organization Address City/[facility]/Zipcode Phone Number [facility] [address] [place] [address] CENTER SARS-CoV2/RT-PCR (Asymptomatic ONLY) (05/14/2020 12:28 PM CDT)Only the most recent of2 resultswithin the time period is included. SARS-COV2/RT-PCR Negative Not Detected, [facility] Negative, See [facility] external report CENTER for linked test SARS-COV-2 [facility] ROLY [facility] PERFORMING LAB [facility] Specimen Other - Nasopharyngeal wall structure (b nemo structure) Narrative Performed At Negative result for this test determines that [facility] SARS-CoV-2 RNA was not present [...] the Act. Fact Sheet for Healthcare Providers: https://www.[employer]/sites/default/files/pro duct/documents/Fact_Sheet_HC_Providers_Lyra_SA RS-CoV-2.pdf Fact Sheet for Healthcare Patients: https://www.[employer]/sites/default/files/pro duct/documents/Fact_Sheet_Patients_Lyra_SARS-C oV-2.pdf Performing Laboratory: [address] [place] [address] Performing Organization Address City/[facility]/Zipcode Phone Number [address] [address] [place] Hemoglobin A1c (05/14/2020 8:28 AM CDT)Only the most recent of3 resultswithin the time period is included. Pathologist Sig nature Hemoglobin A1C 8.4 (H) 4.3 - 6.1 % [facility] Specimen Blood Performing Organization Address [facility] Phone Number [address] [address] [place] ECG 12 lead (05/06/2020 1:39 PM CDT)Only the most recent of2 resultswithin the time period is included. Specimen Narrative Performed At Ventricular Rate 76 BPM GE MUSE Atrial Rate 76 BPM P-R Interval 154 ms QRS Duration 84 ms Q-T Interval 378 ms QTC Calculation(Bazett) 425 ms P [place] 19 degrees R [place] -1 degrees T [place] 32 degrees Sinus rhythm with marked sinus [...] 378 ms QTC Calculation(Bazett) 425 ms P [place] 19 degrees R [place] -1 degrees T [place] 32 degrees Sinus rhythm with marked sinus arrhythmi a Cannot rule out Inferior infarct , age u ndetermined Abnormal ECG When compared with ECG of 21-APR-2020 19 :42, No significant change was found Confirmed by Ankur Leyva ([id number]) on 05/07 8:27:53 AM Performing Organization Address City/State/Zipcode Phone Number MUSE Potassium (05/04/2020 9:37 AM CDT) Pathologist Sig nature Potassium 4.9Comment: Specimen 3.5 - 5.1 meq/L [facility] slightly hemolyzed [facility] Specimen Blood Narrative Performed At Leather Flesher ID - EVELIA M [facility] Performing Organization Address City/[facility]/Zipcode Phone Number [facility] [address] [place] [address] CENTER Clostridium difficile GDH Toxin (05/03/2020 6:44 PM CDT) C. Difficle Toxin Negative Negative [facility] C. Difficile [facility] Positive (A)Comment: Negative [facility] Antigen C. difficile present [facility] but toxin not MEDICAL CENTER detected. Indicates colonization with non-toxigenic strain or level of toxin below detectable levels. No need for enteric isolation. Treatment is rarely needed (only when strong clinical suspicion for Clostridium difficile infection) Specimen Stool - Feces (substance) Narrative Performed At Testing performed by [employer] [facility] Assay. For GDH, published sensitivity of the assay is 98.7% compared to cytotoxicity testing. For Toxin AB, published sensitivity is 87.8% and specificity 99.4% compared to cytotoxicity testing. Verification of kit performance was done by the [facility] Microbiology Lab prior to clinical use. Performing Organization Address City/State/Zipcode Phone Number [address] [address] [place] STOOL PATH CHARGE (05/03/2020 6:44 PM CDT) Pathologist Sig nature Pathogen exam charged Done [facility] Specimen Stool Performing Organization Address [facility]/Zipcode Phone Number [address] [address] [place] Shiga Toxin Screen (05/03/2020 6:44 PM CDT) Pathologist Sig nature Shiga toxin 1 Not detected Not detected [facility] Shiga toxin 2 Not detected Not detected [facility] Specimen Stool Performing Organization Address [facility] Phone Number [address] [address] [place] Ova and Parasite Examination (05/03/2020 6:44 PM CDT) O&P Direct Smear No ova or No ova or [facility] parasites seen parasites seen [facility] O&P Concentrate No ova or No ova or [facility] Smear parasites seen parasites seen [facility] O&P Trichrome Smear No ova or No ova or [facility] parasites seen parasites seen [facility] Specimen Stool Narrative Performed At This result has an attachment that is no t available. Performing Organization Address [facility]/Zipcode Phone Number [address] [address] [place] Fecal leukocytes (05/03/2020 6:44 PM CDT) Fecal Leukocytes No fecal No fecal [facility] leukocytes seen leukocytes seen [facility] Specimen Stool Performing Organization Address [facility]/Zipcode Phone Number [address] [address] CENTER Stool culture + Shiga toxin (05/03/2020 6:44 PM CDT) Pathologist Sig nature Result No Salmonella, Shigella [facility] or Campylobacter [facility] isolated Specimen Stool Performing Organization Address City/State/Zipcode Phone Number [facility] [address] [place] [address] CENTER CBC with platelet count + automated diff (05/03/2020 5:54 AM CDT)Only the most recent of8 resultswithin the time period is included. Pathologist Sig nature WBC 6.2 3.5 - 10.5 [facility] RBC 3.99 3.93 - 5.22 [facility] Hemoglobin 12.0 11.2 - 15.7 [facility]/DL [facility] Hematocrit 37.2 34.1 - 44.9 % [facility] MCV 93.2 79.4 - 94.8 fL [facility] MCH 30.1 25.6 - 32.2 pg [facility] MCHC 32.3 32.2 - 35.5 [facility] RDW 15.1 (H) 11.7 - 14.4 % [facility] Platelets 98 (L) 150 - 450 K/CU [facility] MPV 10.9 9.4 - 12.3 fL [facility] nRBC 0 0 - 0 /100 WBC [facility] % Neutros 72 % [facility] % Lymphs 17 % [facility] % Monos 10 % [facility] % Eos 1 % [facility] % Baso 0 % [facility] # Neutros 4.41 1.56 - 6.13 [facility] # Lymphs 1.02 (L) 1.18 - 3.74 [facility] K/L [facility] # Monos 0.60 (H) 0.24 - 0.36 [facility] K/L [facility] # Eos 0.07 0.04 - 0.36 [facility] K/L [facility] # Baso 0.01 0.01 - 0.08 [facility] K/L [facility] Immature 1 0 - 1 % [facility] Granulocytes-Relative [facility] Specimen Blood Performing Organization Address City/[facility]/Zipcode Phone Number [address] [address] [place] Blood Culture - Routine (Left Venipuncture) (05/03/2020 5:54 AM CDT)Only the most recent of4 resultswithin the time period is included. Pathologist Sig nature Result No growth in 5 days [facility] Specimen Blood - Entire left upper arm (body stru cture) Performing Organization Address [facility] Phone Number [address] [address] [place] Prothrombin time/INR (05/03/2020 5:54 AM CDT) Pathologist Sig nature Protime 14.7 (H) 11.9 - 14.2 seconds [facility] INR 1.18 <=5.90 [facility] Specimen Blood Narrative Performed At Effective 01/13/2019: PT Reference Range [facility] Change New: 11.9-14.2 Previous: 11.7-14.7 RECOMMENDED COUMADIN/WARFARIN INR THERAPY RANGES STANDARD DOSE: 2.0-3.0 Includes: PROPHYLAXIS for venous thrombosis, systemic embolization; TREATMENT for venous thrombosis and/or pulmonary embolus. HIGH RISK: Target INR is 2.5-3.5 for patients wiht mechanical heart valves. Performing Organization Address City/[facility]/Zipcode Phone Number [address] [address] CENTER Magnesium (05/03/2020 5:54 AM CDT)Only the most recent of4 resultswithin the time period is included. Pathologist Sig nature Magnesium 1.9 1.6 - 2.6 mg/dL [facility] Specimen Blood Narrative Performed At Leather Flesher ID - EVELIA Weiss [facility] Performing Organization Address [facility] Phone Number [facility] [address] [place] [address] [place] Hepatic function panel (05/03/2020 5:54 AM CDT)Only the most recent of3 results within the time period is included. Pathologist Sig nature Protein, Total 4.5 (L) 6.0 - 8.3 gm/dL [facility] Albumin 3.0 (L) 3.5 - 5.0 g/dL [facility] Total Bilirubin 0.6 0.2 - 1.2 mg/dL [facility] Bilirubin, Direct 0.3 0.1 - 0.5 mg/dL [facility] Alkaline Phosphatase 48 40 - 150 U/L [facility] AST 40 (H) 5 - 34 U/L [facility] ALT 107 (H) 6 - 55 U/L [facility] Specimen Blood Narrative Performed At Leather Flesher ID - EVELIA Weiss [facility] Specimen slightly icteric Performing Organization Address City/[facility]/Zipcode Phone Number [facility] [address] [place] [address] CENTER Hepatitis panel, acute (04/24/2020 3:43 PM CDT) Pathologist Sig nature Hep A IgM Nonreactive Nonreactive [facility] Hep B C IgM Nonreactive Nonreactive [facility] Hepatitis C Ab Nonreactive Nonreactive [facility] HBsAg Screen Nonreactive Nonreactive [facility] Specimen Blood Narrative Performed At Leather Flesher ID - DB [facility] Performing Organization Address City/State/Zipcode Phone Number [facility] [address] [place] [address] CENTER Echo w contrast limited study (04/24/2020 2:37 PM CDT) Pathologist Sig nature Ejection Fraction [facility] ECHO HEARTLAB [facility] Specimen Narrative Performed At Transthoracic Echocardiography Report (T TE) [facility]CHO [facility] Demographics Patient Name TUNDE WELLER Date of Study 04/24/2020 DARR[place] Gender Female Visit Number [id number] Race Unknown Room Number 1550 Number Date of 1940 Referring Tara Eagle MD Physician 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 Clinical History HGB 12.5 HCT 38.9 % RCC- S/P Resection 1996 DM HTN, HYPOTHYROIDISM Hx CAD-RI Contrast Medium: Bubble Study. Height: 60 inches [...] segments are hyperkinetic . Global LV systolic functi on hyperdynamic . LVEF by Butts's method of disk assessment is increased (>70%) . Left Atrium LA size [...] No significant pericardial effusion is visualized. 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 Navarijo, MD Physici an Procedure Type of Study TTE procedure:ECHO W/CONT LTD STUDY WO DOPP (Routine) Indications:Suspected cardiac source of emboli. Clinical History HGB 12.5 HCT 38.9 % RCC- S/P Resection 1996 DM HTN, HYPOTHYROIDISM Hx CAD-RI Contrast Medium: Bubble Study. Height: 60 inches [...] LVOT Area: 2.96 cm^2 Performing Organization Address City/[facility] Phone Number [facility] HEARTLAB MK[facility] CPACS Lipid panel (04/24/2020 11:15 AM CDT) Pathologist Sig nature Triglycerides 225Comment: Specimen mg/dL [facility] hemolyzed [facility] Cholesterol 241Comment: Specimen mg/dL [facility] hemolyzed [facility] HDL 60 mg/dL [facility] LDL Calculated 136 mg/dL [facility] Specimen Blood Narrative Performed At Triglyceride Reference Range: [facility] Low Risk <150 Borderline 150-199 High Risk 200-499 Very High Risk >=500 Cholesterol Reference Range: Low Risk <200 Borderline 200-239 High Risk >240 HDL Cholesterol Reference Range: Low Risk >=60 High Risk <40 LDL Cholesterol Reference Range: Optimal <100 Near Optimal 100-129 Borderline 130-159 High 160-189 Very High >=190 Leather Flesher ID - SUSI M Specimen moderately icteric Performing Organization Address City/[facility]/Zipcode Phone Number [facility] [address] [place] [address] CENTER Comprehensive metabolic panel (04/24/2020 11:15 AM CDT)Only the most recent of7 resultswithin the time period is included. Protein, Total 5.6 (L)Comment: 6.0 - 8.3 [facility] Specimen slightly gm/dL [facility] Albumin 3.4 (L)Comment: 3.5 - 5.0 [facility] Specimen slightly g/dL [facility] Alkaline 79 40 - 150 U/L [facility] Phosphatase [facility] Total Bilirubin 0.8Comment: 0.2 - 1.2 [facility] Specimen slightly mg/dL [facility] Sodium 136 136 - 145 [facility] meq/L [facility] Potassium 4.5Comment: 3.5 - 5.1 [facility] Specimen slightly meq/L [facility] Chloride 100 98 - 107 [facility] meq/L [facility] CO2 31 (H) 22 - 29 meq/L [facility] BUN 24 (H) 7 - 21 mg/dL [facility] Creatinine 0.90Comment: 0.57 - 1.25 [facility] Specimen slightly mg/dL [facility] Glucose 336 (H) 70 - 105 [facility] mg/dL [facility] Calcium 8.9 8.4 - 10.2 [facility] mg/dL [facility] AST 45 (H)Comment: 5 - 34 U/L [facility] ALT 120 (H)Comment: 6 - 55 U/L [facility] EGFR 61Comment: mL/min/1.73 [facility] ESTIMATED GFR IS sq m [facility] NOT ACCURATE MEDICAL CENTER CREATININE CLEARANCE IN PREDICTING GLOMERULAR FILTRATION RATE. ESTIMATED GFR IS NOT APPLICABLE FOR DIALYSIS PATIENTS. Specimen Blood Narrative Performed At Leather Flesher ID - SUSI M [facility] Specimen moderately icteric Performing Organization Address City/State/Zipcode Phone Number [facility] [address] [place] [address] CENTER Vitamin B12 and Folate (04/24/2020 6:43 AM CDT) Pathologist Sig nature Vitamin B12 1,155 (H) 213 - 816 pg/mL [facility] Folate 8.50 >=7.00 ng/mL [facility] Specimen Blood Narrative Performed At Leather Flesher ID - AAJEWEL [facility] Performing Organization Address City/[facility] Facility[facility] Phone Number [facility] [address] [place] [address] CENTER TSH/Free T4 If Indicated (04/24/2020 6:43 AM CDT) Pathologist Sig [facility] TSH 3.805 0.350 - 4.940 uIU/mL [facility] Specimen Blood Narrative Performed At Leather Flesher ID - AAJEWEL [facility] Performing Organization Address [facility] Facility[facility] Phone Number [address] [address] CENTER Methylmalonic acid (04/24/2020 6:43 AM CDT) Methlymalonic 206 87 - 318 [facility] Acid,Ser Comment: nmol/L INCORPORATED This test was developed and its analytical performance characteristics have been determined by [employer] [facility]. It has not been cleared or approved by FDA. This assay has been validated pursuant to the CLIA regulations and is used for clini last purposes. Specimen Blood Narrative Performed At Performing Lab [facility] te [address] [place] [address] Shannan Singletary MD, PhD, RICHI Performing Organization Address City/[facility] Facilitycode Phone Number [employer] [place] [address] INCORPORATED [address] [facility] Protein electrophoresis, serum (04/24/2020 6:43 AM CDT) Albumin Fraction 3.0 (L) 3.5 - 5.5 [facility] g/dL [facility] Alpha 1 Fraction 0.2 0.2 - 0.4 [facility] g/dL [facility] Alpha 2 Fraction 0.8 0.5 - 0.9 [facility] g/dL [facility] Beta Fraction 0.6 0.6 - 1.1 [facility] g/dL [facility] Gamma Globulin 0.4 (L) 0.7 - 1.7 [facility] Fraction g/dL [facility] Interpretation Pattern suggestive [facility] of mild acute [facility] inflammation [facility] [place] coupled with urine protein loss and/or protein-losing enteropathy. No monoclonal bands detected. Pathologist: TEE Esparza MD (electronic [facility] signature) [facility] Protein, Total 5.0 (L) 6.0 - 8.3 [facility] gm/dL [facility] Specimen Blood Narrative Performed At Leather Flesher ID - EVELIA Weiss [facility] Performing Organization Address City/[facility]/Zipcode Phone Number [address] [address] CENTER Ferritin (04/24/2020 6:43 AM CDT) Pathologist Sig nature Ferritin 292.76 (H) 5.00 - 275.00 ng/mL [facility] Specimen Blood Narrative Performed At Leather Flesher ID - PETERSON [facility] Performing Organization Address City/[facility]/Zipcode Phone Number [address] [address] CENTER US abdomen limited (04/23/2020 8:40 PM CDT) Specimen Narrative Performed At FINAL REPORT [facility] U/S, ABDOMINAL, LIMITED CLINICAL HISTORY: elevated lfts Comparison: None Technique: Real-time transabdominal ul trasound of the right upper quadrant abdomen was performed. Liver: 10.3 cm, No acute findings. No focal lesion. Echotexture is homogeneous. Gallbladder: Not visualized. Biliary tree: No intrahepatic ductal dil atation. CBD: 0.4 cm. Pancreas: Not well-seen. Right kidney: Status post right nephre ctomy. No ascites is present in the abdomen. Partially seen aorta is unremarkable. Impression: No acute findings. Cholecystectomy and right nephrectomy. . Signed: Rao Torre MD Report Verified Date/Time: 04/23/2020 23:25:58 Procedure Note Interface, External Ris In [...] 3:25:58 Performing Organization Address City/State/Zipcode Phone Number [facility] MR brain without & with IV contrast (04/23/2020 4:50 PM CDT) Specimen Narrative Performed At FINAL REPORT [facility] MRI Brain with and without contrast CLINICAL [...] Rao Torre MD Report Verified Date/Time: 04/24/2020 02:52:33 Procedure Note Interface, External Ris In [...] 2:52:33 Performing Organization Address City/State/Zipcode Phone Number [facility] CT brain without IV contrast (04/23/2020 9:17 AM CDT) Specimen Narrative Performed At FINAL REPORT [facility] CT, BRAIN, WITHOUT CONTRAST INDICATION: Unlisted Reason [...] is recommended for further evaluation. Signed: Derick Rnagel MD Report Verified Date/Time: 04/23/2020 10:32:40 Procedure Note Interface, External Ris In [...] 0:32:40 Performing Organization Address City/State/Zipcode Phone Number [facility] 2D Echo W/O Doppler(No Doppler) (04/22/2020 10:03 AM CDT) Pathologist Sig nature Ejection Fraction [facility] ECHO HEARTLAB [facility] Specimen Narrative Performed At Transthoracic Echocardiography Report (T TE) [facility] ECHO HEARTLAB [facility] Demographics Patient Name TUNDE WELLER Date of Study 04/22/2020 DARRION Gender Female Visit Number [id number] Race Unknown Room Number 1550 Number Date of 1940 Referring Fco Monte Physician Age 79 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 Clinical History HGB 14.6 HCT 44.4 % DM Renal Cell Carcinoma-S/p resection 1996 HTN, HYPOTHYROIDISM Hx CAD-RI Height: 60 inches Weight: 58.97 kg (130 [...] segments are hyperkinetic . Global LV systolic functi on hyperdynamic . 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 Clinical History HGB 14.6 HCT 44.4 % DM Renal Cell Carcinoma-S/p resection 1996 HTN, HYPOTHYROIDISM Hx CAD-RI Height: 60 inches Weight: 58.97 kg (130 [...] T CI: 3.65 l/min/m^2 Performing Organization Address [facility] Phone Number [facility] Phosphorus (04/22/2020 5:22 AM CDT)Only the most recent of2 resultswithin the time period is included. Pathologist Sig nature Phosphorus 3.1 2.3 - 4.7 mg/dL [facility] Specimen Blood Narrative Performed At Leather Flesher TIARA Weiss [facility] Performing Organization Address City/[facility]/Zipcode Phone Number [facility] [address] [place] [address] CENTER Urinalysis w/Microscopic (04/21/2020 9:19 PM CDT) Color, UA Light Yellow [facility] Clarity, UA Clear [facility] Specific [place], 1.029 1.001 - 1.035 [facility] pH, UA 6.0 5.0 - 8.0 [facility] Protein, UA Negative Negative [facility] Glucose, UA 30 mg/dL (A) Negative [facility] Ketones, UA Negative Negative [facility] Bilirubin, UA Negative Negative [facility] Blood, UA Negative Negative [facility] Nitrite, UA Negative Negative [facility] Leukocytes, UA Trace (A) Negative [facility] Urobilinogen, UA 0.2 0.2 - 1.0 mg/dL [facility] RBC, UA 1 /HPF [facility] WBC, UA 3 /HPF [facility] Squam Epithel, UA <1 /HPF [facility] Specimen Source [facility] Specimen Urine Narrative Performed At Leather Flesher ID - [auto] [facility] Leather Flesher ID - steve Performing Organization Address [facility] Facility[facility] Phone Number [address] [address] [place] Anaerobic culture (03/31/2020 6:14 PM CDT) Pathologist Sig nature Result No anaerobes isolated [facility] Specimen Body Fluid - Abdominopelvic structure (b nemo structure) Performing Organization Address [facility]/Zipcode Phone Number [address] [address] [place] Fungus culture + smear (03/31/2020 6:14 PM CDT) Pathologist Sig nature Result 3+ Lorri albicans [facility] ([facility] Fungus Smear No fungi seen [facility] Specimen Body Fluid - Abdominopelvic structure (b nemo structure) Performing Organization Address City/State/Zipcode Phone Number [facility] [address] [place] [address] drainage abdominal (03/31/2020 6:12 PM CDT) Specimen Narrative Performed At FINAL REPORT [facility] PROCEDURE: CT, DRAINAGE, ABDOMINAL DOSE REDUCTION: The examination was perf ormed according to departmental dose-optimization program w hich includes automated exposure control, adjustment of the mA a nd/or kV according to patient size and/or use of iterative reconstruct ion technique. HISTORY: Diverticulitis with increasing size of abscess Leather Flesher: Bam Ko MD Moderate sedation: See nursing [...] dilated using serial dilators. Subsequently a 8 Burkinan all-purpose drainage catheter was advanced into the collectio n using CT guidance. Approximately 15 cc of thick purulent fl uid was obtained. Samples were submitted to microbiology for furth er testing. Catheter was anchored to the [...] Bam Ko MD Report Verified Date/Time: 04/01/2020 12:12:30 Reading Location: [address] Reading Room Procedure Note Interface, External Ris In - 04/01/2020 12:14 PM CDT FINAL REPORT PROCEDURE: CT, DRAINAGE, ABDOMINAL DOSE REDUCTION: The examination was perf ormed according to departmental dose-optimization program w hich includes automated exposure control, adjustment of the mA a nd/or kV according to patient size and/or use of iterative reconstruct ion technique. HISTORY: Diverticulitis with increasing size of abscess Leather Flesher: Bam Ko MD Moderate sedation: See nursing [...] dilated using serial dilators. Subsequently a 8 Burkinan all-purpose drainage catheter was advanced into the collectio n using CT guidance. Approximately 15 cc of thick purulent fl uid was obtained. Samples were submitted to microbiology for [facility] er testing. Catheter was anchored to the [...] Verified Date/Time: 04/01/2020 1 2:12:30 Reading Location: [address] Reading Room Performing Organization Address City/State/Zipcode Phone Number [facility] Wound culture + gram stain (03/31/2020 6:04 PM CDT) Result 2+ Lorri albicans [facility] (A) [facility] Result 2+ Klebsiella [facility] oxytoca (A) [facility] Result 2+ Citrobacter [facility] freundii () [facility] Gram Stain Result 4+ WBCs [facility] Gram Stain Result <1+ budding yeast [facility] Specimen Wound - Abdominopelvic structure (body s tructure) Organism Antibiotic Method Susceptibility Klebsiella oxytoca Amikacin [...] + Sulfamethoxazole <=20: Susceptible Performing Organization Address City/State/[facility] Facility[facility] Phone Number [place] [phone] [place], [place] [phone] CENTER PT/aPTT (03/31/2020 9:15 AM CDT) Pathologist Sig nature Protime 13.5 11.9 - 14.2 seconds [facility] INR 1.06 <=5.90 [facility] PTT 24.2 22.5 - 36.0 seconds [facility] Specimen Blood Narrative Performed At Effective 01/13/2019: PT Reference Range [facility] Change New: 11.9-14.2 Previous: 11.7-14.7 RECOMMENDED COUMADIN/WARFARIN INR THERAPY RANGES STANDARD DOSE: 2.0-3.0 Includes: PROPHYLAXIS for venous thrombosis, systemic embolization; TREATMENT for venous thrombosis and/or pulmonary embolus. HIGH RISK: Target INR is 2.5-3.5 for patients wiht mechanical heart valves. Performing Organization Address [facility] Facilitycode Phone Number [place] [phone] [place] [address] CENTER Lactic acid, venous (03/31/2020 9:15 AM CDT) Pathologist Sig nature Lactate, Venous 1.05 0.50 - 2.20 mmol/L [facility] Specimen Blood Narrative Performed At Leather Flesher TIARA Manuel [facility] Performing Organization Address City/State/Zipcode Phone Number [place] [phone] [place], [place] [phone] CENTER after 06/29/2019 Insurance Payer Benefit Plan / Subscriber ID Effective Dates Phone Addre ss Type Group [facility] MEDICARE [id number] 2019-Presen - MEDICARE MGD HMO t CARE CDC REVIEW CDC REVIEW [id number] 2020-Presen [address] [place] [place] [address] ([address]) [address] [place] [address] Advance Directives For more information, please contact: [phone] Code Status Date Activated Date Inactivated Comments DNAR 05/15/2020 11:32 AM 05/15/2020 11:06 PM This code status was determined by: Patient Has the consent form been signed? Yes Have you Written ACP Note: No Partial Code 05/14/2020 1:53 PM 05/15/2020 11:32 AM This code status was determined by: Patient Drug Protocol After Arrest Occurs? Yes Mechanical Ventilation with Intubation? No Bag/Mask? No Internal/External Pacemaker? No Transfer to Critical Care? No Chest Compressions? No Defibrillation/Cardioversion? No Full Code 05/02/2020 11:28 PM 05/06/2020 6:09 [...]
--- OUTSIDE RECORDS SUMMARY | 2020-06-29 16:30 | XMS REPORT | Continuity of Care Document ---
:1940 Author Organization [facility] t Address [address] [place] [address] Dr. [address] [place] [address] Care Team Providers Name Role Phone Renetta Lester MD Attending Clinician Kenyon VERGARA Attending Clinician Sadia VERGARA Attending Clinician RENETTA LESTER Attending Clinician Unavailable DIOMEDES Attending Clinician Unavailable Diomedes VERGARA Attending Clinician Feliberto Wilder MD Attending Clinician KENYON Attending Clinician Unavailable Tello Crawford MD Attending Clinician Ha Mckeon MD Attending Clinician Jos Pearson MD Attending Clinician RENETTA LESTER Admitting Clinician Unavailable Tello CRAWFORD Admitting Clinician Unavailable HA MCKEON Admitting Clinician Unavailable Payers Payer Name Policy Type Policy Effective Date Expiration Date Sour ce Number [facility] [id number] 2019 TEE [facility] - MEDICARE MGD 00:00:00 - [facility] MEDICARE [id number]/08/19 020-Present CDC REVIEWCDC [id number] 2020 TEE Chow s [id number] 00:00:00 - [place] [address] Problems Condition Condition Condition Status Onset Resolution Last Treating Co mments Source Name Details Category Date Date Treatment Clinician Date Bright red Bright red Disease Active 2019- [facility] blood per blood per 05-14 [facility] - rectum rectum 00:00: Medical 00 [facility] Colitis Colitis Disease Active 2019-[address] [facility] 05-02 [facility] - 00:00: Medical 00 [facility] Dehydratio Dehydratio Disease Active [address] n n 04-24 [facility] - 00:00: Medical [facility] Elevated Elevated Disease Active 2019-0 [facility] LFTs LFTs 04-24 - 00:00: Medical 00 [facility] Steroid-in Steroid-in Disease Active [facility] duced duced 04-24kes - hyperglyce hyperglyce 00:00: Dc dical claudia claudia 00 [facility] Meningioma Meningioma Disease Active [address] 04-24 [facility] - 00:00: Medical 00 [facility] Renal cell Renal cell Disease Active 2019-[address] carcinoma carcinoma 04-21 [facility] - of right of right 00:00: Medica l kidney kidney 00 [facility] Fatigue Fatigue Disease Active 2019-[address] [facility] 04-21 [facility] - 00:00: Medical 00 [facility] Hypothyroi Hypothyroi Disease Active 2019-[address] dism dism 04-01[facility] - 00:00: Medical 00 [facility] Diabetes Diabetes Disease Active 2019-0 [facility] mellitus mellitus 04-01 [facility] - 00:00: Medical 00 [facility] Hypertensi Hypertensi Disease Active 2019-[address] on on 04-01kes - 00:00: Medical 00 [facility] 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 04-01 [facility] - 00:00: Medical 00 [facility] Diverticul Diverticul Disease Active 2020-[address] itis of itis of 03-31 [facility] - intestine intestine 00:00: Medi last with with 00 [facility] abscess abscess Allergies, Adverse Reactions, Alerts Allergy Allergy Status Severity Reaction(s) Onset Inactive Treating Comm ents Source Name Type Date Date Clinician Sreekanth Sheehan Active Other (See hallucina [facility] to Comments) 03-31 tion [facility] - adverse 00:00: Medical reaction 00 [facility] s Morphine Propensi Active Rash [facility] ty to 03-31 [facility] - adverse 00:00: Medical reaction 00 Center s Family History Family Member Diagnosis Comments Start Date Stop Date Source Natural brother Cancer [facility] Natural father Cancer [facility] Natural mother Diabetes [facility] Natural mother Heart disease [facility] Natural sister Breast cancer [facility] Natural sister Cancer [facility] Social History Social Habit Start Date Stop Date Quantity Comments Source History [facility] Alcohol Std Drinks Medica l Center History [facility] Alcohol Binge Medical Tony ter Sex Assigned At [facility] Tobacco use and 2020-04-21 2020-04-21 Never used [facility] exposure 00:00:00 00:00:00 [facility] Alcohol intake 2020-04-21 2020-04-21 Current [facility] 00:00:00 00:00:00 non-drinker of Medical Ce nter alcohol (finding) History [facility] 2020-04-21 2020-04-21 1 [facility] - Alcohol Frequency 00:00:00 00:00:00 [facility] Smoking Status Start Date Stop Date Source Never smoker [facility] M edical [facility] Medications Ordered Filled Start Stop Current Ordering Indication Dosage Frequency Signature Comments Components Source Medication Medication Date Date Medication? Clinician (SIG) Name Name aspirin 81 2019-0 Yes 1{tbl} QD Take [address] MG EC 9-28 tablet by [facility] - tablet 21:06: mouth Medical 43 daily. Center nitroglycer 2020-0 Yes 1{tbl} Place [address] in 9-28 tablet [facility] - (NITROSTAT) 21:06: under the M edical 0.[address] 43 tongue as Cente r tablet needed. predniSONE 2020-0 Yes 1{tbl} Q.5D Take [address] (DELTASONE) 9-28 tablet by Vikram es - 20 MG 21:06: mouth 2 Medical tablet 43 (two) Center times daily. cycloSPORIN 2020-0 Yes 1[drp] Place [address] E 9-28 drop into [facility] - (RESTASIS) 21:06: both eyes Me dical 0.05 % 43 as needed. Center ophthalmic emulsion alpha 2019-0 Yes 1{tbl} QD Take [address] lipoic acid 9-28 tablet by Vikram es - 600 mg Cap 21:06: mouth Medica l 43 daily. Center calcium Yes 1{tbl} QD Take [address] carbonate-v - tablet by Vikram es - itamin D3 21:06: mouth Medical (CALCIUM- 43 daily. Center TAMIN D) 500 mg(1,250mg) -200 unit per tablet ciprofloxac 2020- No 500mg Take 1 CH I [...] 8 (eight) hours for 13 days. amLODIPine 2019- No 5mg QD Take [address] (NORVASC) 5 04-25 tablet (5 Celina kes - MG tablet 00:00: 23:59 mg total) Me dical 00 :00 by mouth Center daily for 30 days. atorvastati 2019-2019- No 1{tbl} QD Take [address] n (LIPITOR) 04-24 tablet by Celina kes - 80 MG 14:59: 00:00 mouth Medical tablet 34 :00 daily. Center tocilizumab 2020- No 1{dose} Inject [address] (ACTEMRA) 04-24 Dose [facility] - 162 mg/0.9 14:59: 00:00 subcutaneo Medical mL Syrg 34 :00 usly every Center 7 days Girish. insulin 2020- No QD Inject [facility] glargine 04-24- subcutaneo Luke [facility] - (LANTUS) 14:59: 00:00 usly Medical 100 unit/mL 34 :00 nightly Cente r injection Use as directed2- 5 units depending on blood sugar . insulin 2019- Yes 6U QD Inject [address] [...] tablet 00 :00 by mouth Center daily. insulin 2020- Yes 0U Inject 0-[address] lispro 04-24 Units [facility] - (HUMALOG) 00:00: 23:59 subcutaneo M edical 100 unit/mL 00 :00 usly 3 Center injection (three) times daily before meals 3 u AC plus this sliding scale insulin. gabapentin 2019- No 100mg QD Take [address] (NEURONTIN) 04-24- capsule [facility] - 100 MG 00:00: 00:00 (100 mg Medical capsule 00 :00 total) by Center mouth nightly. pregabalin 2019- 2020- No 1{tbl} QD Take [address] (LYRICA) 50 04-21 tablet by Celina kes - MG capsule 18:58: 00:00 mouth Medic al 12 :00 daily. Center valACYclovi 2019- 2020- No 1{tbl} Take [address] r (VALTREX) 04-21 tablet by Celina kes - 500 MG 18:51: 00:00 mouth as Medica l tablet 50 :00 needed. Hope fluconazole 2019- No 400mg QD Take [address] (DIFLUCAN) 8-20 08-24 tablets [facility] - 200 MG 00:00: 23:59 (400 mg Medical tablet 00 :00 total) by Center mouth daily for 4 days. levoFLOXaci 2019- No 500mg Q24H Take [address] n 8- 08-24 tablet [facility] - (LEVAQUIN) 00:00: 23:59 (500 mg Med ical 500 MG 00 :00 total) by Center tablet mouth daily for 4 days. metroNIDAZO 2020- No 500mg Take [address] LE (FLAGYL) 8-24 tablet [facility] - 500 MG 00:00: 23:59 (500 mg Medical tablet 00 :00 total) by Center mouth every 8 (eight) hours for 5 days. cranberry 2020- No 1{tbl} QD Take [address] fruit 8-14 08-14 tablet by [facility] - (CRANBERRY) 10:26: 00:00 mouth Medi last 450 mg Tab 05 :00 daily. [facility] furosemide 2019- No 20mg Take [address] (LASIX) 20 6-17 09-19 by mouth [facility] - MG tablet 00:00: 00:00 as needed. M edical 00 :00 [facility] levothyroxi Yes 1{tbl} QD Take [address] ne 3-20 tablet by [facility] - (SYNTHROID, 00:00: mouth Medic al LEVOTHROID) 00 daily. Hope 75 MCG tablet losartan Yes 1{tbl} QD Take 1 [facility] t (COZAAR) 3-20 tablet by [facility] - 100 MG 00:00: mouth Medical tablet 00 daily. Hope diltiazem Yes 1{tbl} QD Take [address] (DILT-XR) 2-11 tablet by [facility] - 180 mg 24 00:00: mouth Medical hr capsule 00 nightly. Cente r sertraline Yes 1{tbl} QD Take [address] (ZOLOFT) 4-18 tablet by [facility] - 100 MG 00:00: mouth Medical tablet 00 daily Noon Center time. Vital Signs Vital Name Observation Time Observation Value Comments Source Systolic blood 2020-05-15 19:29:00 105 mm[Hg] [facility] Diastolic blood 2020-05-15 19:29:00 64 mm[Hg] [facility] Heart rate 2020-05-15 19:29:00 112 /min [facility] Body temperature 2020-05-15 19:29:00 36.39 Dianna [facility] Respiratory rate 2020-05-15 19:29:00 18 /min [facility] Oxygen saturation in 2020-05-15 19:29:00 95 /min [facility] Arterial blood by Medical Ce nter Pulse oximetry Body height 2020-05-14 05:33:00 152.4 cm [facility] Body weight 2020-05-14 05:33:00 60.782 kg [facility] BMI 2020-05-14 05:33:00 26.17 kg/m2 [facility] Procedures Procedure Date / Time Performing Clinician Source Performed REPORT OF PROCEDURE - 2020-05-17 11:50:23 Provider, Default [facility] ENDOSCOPY SCAN [facility] RHYTHM STRIP - SCAN 2020-05-17 11:50:21 Provider, Default [facility] POCT-GLUCOSE METER 2020-05-15 11:55:00 Viviana Mccullough [facility] POCT-GLUCOSE METER 2020-05-15 07:45:00 Viviana Mccullough [facility] BASIC METABOLIC PANEL (7) 2020-05-15 04:30:00 Yoanna Lizama [facility] CBC (HEMOGRAM ONLY) 2020-05-15 04:30:00 Kenyon [facility] POCT-GLUCOSE METER 2020-05-14 21:48:00 Kenyon [facility] POCT-GLUCOSE METER 2020-05-14 21:07:00 Kenyon [facility] HEMOGLOBIN AND HEMATOCRIT 2020-05-14 16:32:00 Yoanna Lizama [facility] SARS-COV2/RT-PCR ([facility] & 2020-05-14 12:28:00 Yoanna Lizama [facility] HEMOGLOBIN AND HEMATOCRIT 2020-05-14 08:28:00 Yoanna Lizama [facility] HEMOGLOBIN A1C 2020-05-14 08:28:00 Yoanna Lizama [facility] RHYTHM STRIP - SCAN 2020-05-10 10:00:20 Provider, Default [facility] REPORT OF PROCEDURE - 2020-05-10 10:00:18 Provider, Default [facility] ENDOSCOPY [facility] ECG 12-LEAD 2020-05-06 13:39:59 Unknown, Hl7 Doctor [facility] POCT-GLUCOSE METER 2020-05-06 12:38:[address] [facility] POCT-GLUCOSE METER 2020-05-06 07:48:[address] [facility] BASIC METABOLIC PANEL (7) 2020-05-06 04:04:00 Keaton Wilder i [facility] POCT-GLUCOSE METER 2020-05-05 22:10:[address] [facility] POCT-GLUCOSE METER 2020-05-05 17:35:[address] POCT-GLUCOSE METER 2020-05-05 12:00:[address] POCT-GLUCOSE METER 2020-05-05 08:36:[address] [facility] HEMOGLOBIN A1C 2020-05-05 06:09:00 Meño [facility] BASIC METABOLIC PANEL (7) 2020-05-05 06:09:00 Keaton Wilder [facility] POCT-GLUCOSE METER 2020-05-04 22:28:[address] [facility] POCT-GLUCOSE METER 2020-05-04 17:33:[address] POCT-GLUCOSE METER 2020-05-04 11:48:00 Meño, [facility] POTASSIUM 2020-05-04 09:37:00 [facility]SE [facility] 2020-05-04 07:53:[address] [facility] BASIC METABOLIC PANEL (7) 2020-05-04 05:08:00 MeñoRohithlettyyumiko queen [facility] POCT-GLUCOSE METER 2020-05-03 22:02:[address] [facility] C. DIFFICILE GDH TOXIN 2020-05-03 18:44:00 Lay Lester [facility] STOOL CULTURE + SHIGA 2020-05-03 18:44:00 Lay Lester [facility] FECAL LEUKOCYTES 2020-05-03 18:44:00 Lay Lester [facility] OVA AND PARASITE 2020-05-03 18:44:00 Lay Lester [facility] SHIGA TOXIN SCREEN 2020-05-03 18:44:00 Lay Lester [facility] STOOL PATH CHARGE 2020-05-03 18:44:00 Lay Lester [facility] POCT-GLUCOSE METER 2020-05-03 14:38:[address] [facility] BLOOD CULTURE 2020-05-03 05:54:00 Lay Lester [facility] BASIC METABOLIC PANEL (7) 2020-05-03 05:54:[address] [facility] HEPATIC FUNCTION PANEL 2020-05-03 05:54:00 Lay Lester [facility] PROTHROMBIN TIME/INR 2020-05-03 05:54:00 [facility] 2020-05-03 05:54:00 Trevon [facility] CBC W/PLT COUNT & AUTO 2020-05-03 05:54:00 Trevon [facility] DIFFERENTIAL [facility] RHYTHM STRIP - SCAN 2020-04-26 13:51:12 Esther Dickson [facility] POCT-GLUCOSE METER 2020-04-24 16:31:00 Tara Crawford [facility] HEPATITIS PANEL, ACUTE 2020-04-24 15:43:00 Fco Tara [facility] ECHO W/ CONTRAST LIMITED 2020-04-24 14:37:21 Tara Crawford [facility] POCT-GLUCOSE METER 2020-04-24 12:25:00 Tara Crawford [facility] LIPID PANEL 2020-04-24 11:15:00 Tara Crawford [facility] COMPREHENSIVE METABOLIC 2020-04-24 11:15:00 Tara Crawford [facility] POCT-GLUCOSE METER 2020-04-24 07:59:00 Tara Crawford [facility] VITAMIN B12 AND FOLATE 2020-04-24 06:43:00 Tara Crawford [facility] METHYLMALONIC ACID 2020-04-24 06:43:00 Tara Crawford [facility] PROTEIN ELECTROPHORESIS, 2020-04-24 06:43:00 Tara Crawford [facility] FERRITIN 2020-04-24 06:43:00 Tara Crawford [facility] HEMOGLOBIN A1C 2020-04-24 06:43:00 Tara Crawford [facility] TSH/FREE T4 IF INDICATED 2020-04-24 06:43:00 Tara Crawford [facility] POCT-GLUCOSE METER 2020-04-23 23:06:00 Tara Crawford [facility] US ABDOMEN LIMITED 2020-04-23 20:40:00 Tara Crawford K [facility] POCT-GLUCOSE METER 2020-04-23 17:29:00 Tara Crawford [facility] MR BRAIN WITH & WITHOUT 2020-04-23 16:50:00 Tara Crawfrod [facility] IV CONTRAST [facility] CT BRAIN WITHOUT IV 2020-04-23 09:17:00 Tara Crawford [facility] BASIC METABOLIC PANEL (7) 2020-04-23 04:02:00 aTra Crawford [facility] HEPATIC FUNCTION PANEL 2020-04-23 04:02:00 Tara Crawford [facility] CBC W/PLT COUNT & AUTO 2020-04-23 04:02:00 Tara Crawford [facility] POCT-GLUCOSE METER 2020-04-23 03:50:00 Tara Crawford [facility] POCT-GLUCOSE METER 2020-04-22 20:53:00 Tara Crawford [facility] POCT-GLUCOSE METER 2020-04-22 16:06:00 Tara Crawford [facility] POCT-GLUCOSE METER 2020-04-22 12:06:00 Tara Crawford [facility] 2D ECHO MODE W/O DOPPLER 2020-04-22 10:03:04 Tara Crawford [facility] POCT-GLUCOSE METER 2020-04-22 08:28:00 Tara Crawford [facility] BASIC METABOLIC PANEL (7) 2020-04-22 05:22:00 Tara Crawford [facility] HEPATIC FUNCTION PANEL 2020-04-22 05:22:00 Tara Crawford [facility] MAGNESIUM 2020-04-22 05:22:00 Tara Crawford [facility] PHOSPHORUS 2020-04-22 05:22:00 Tara Crawford [facility] CBC W/PLT COUNT & AUTO 2020-04-22 05:22:[address] [facility] SARS-COV2/RT-PCR ([facility] & 2020-04-22 00:49:00 Tara Crawford [facility] REF LAB[facility]) [facility] POCT-GLUCOSE METER 2020-04-21 23:29:00 Tara Crawford [facility] BLOOD CULTURE 2020-04-21 21:35:00 Tara Crawford [facility] URINALYSIS W/ MICROSCOPIC 2020-04-21 21:19:00 Tara Crawford [facility] ECG 12-LEAD 2020-04-21 19:42:44 Unknown, Hl7 Doctor [facility] CBC W/PLT COUNT & AUTO 2020-04-05 06:24:00 Ronald Covington [facility] S t [facility] DIFFERENTIAL [facility] 2020-04-05 04:25:00 IsacKiersten [facility] 2020-04-04 04:01:00 IsacKiersten [facility] 2020-04-03 04:04:00 [facility] PANEL [facility] CBC W/PLT COUNT & AUTO 2020-04-03 04:04:00 IsacAnibalfairviewdorys [facility] - DIFFERENTIAL [facility] 2020-04-02 04:31:00 [facility] - PANEL [facility] CBC W/PLT COUNT & AUTO 2020-04-02 04:31:00 IsacKiersten [facility] - DIFFERENTIAL [facility] 2020-04-01 04:44:00 IsacAnibalfairviewdorys [facility] - PANEL [facility] MAGNESIUM 2020-04-01 04:44:00 [facility] PHOSPHORUS 2020-04-01 04:44:00 IsacAnibalfairviewdorys [facility] CBC W/PLT COUNT & AUTO 2020-04-01 04:44:00 IsacKiersten [facility] - DIFFERENTIAL [facility] ANAEROBIC CULTURE 2020-03-31 18:14:00 [place] [facility] FUNGUS CULTURE + SMEAR 2020-03-31 18:14:00 [place] [facility] CT DRAINAGE ABDOMINAL 2020-03-31 18:12:00 Cristinojuanaminal gabby [facility] WOUND CULTURE + GRAM 2020-03-31 18:04:00 Gómez Lock [facility] PT/APTT 2020-03-31 09:15:[address] [facility] MAGNESIUM 2020-03-31 09:15:[address] [facility] LACTIC ACID, VENOUS 2020-03-31 09:15:00 [facility] COMPREHENSIVE METABOLIC 2020-03-31 09:15:00 Harsh [facility] PANEL [facility] CBC W/PLT COUNT & AUTO 2020-03-31 09:15:00 [facility] DIFFERENTIAL [facility] Plan of Care Planned Activity Planned Date Details Comments Source Future Scheduled 2021-01-20 [facility]00 protein (procedure) [facility] [code = 725378066] Future Scheduled 2020-11-11 Hem[facility] A[facility]c [facility] - Test 00:00:00 measurement [facility] Center (procedure) [code = 36152486] Future Scheduled 2020-04-18 INFLUENZA VACCINE (#1) [facility] - Test 00:00:00 [code = INFLUENZA Medical Ce nter VACCINE (#1)] Future Scheduled 2019-07-18 Medicare IPPE (WELCOME [facility] - Test 00:00:00 TO MEDICARE) [code = Medical Center Medicare IPPE (WELCOME TO MEDICARE)] Future Scheduled 2006 PNEUMOCOCCAL 65+ Y[facility] - Test 00:00:00 (1 of 1 - Medical Center [id number] PCV13) [code = PNEUMOCOCCAL 65+ YRS (1 of 1 - [id number] PCV13)] Future Scheduled 1950 DIABETIC EYE EXAM [facility] - Test 00:00:00 [code = DIABETIC EYE Medical Center EXAM] Future Scheduled [address] Vikram es - Test 00:00:00 examination Medical Center (regime/therapy) [code = 155255921] Results Test Description Test Time Test Comments Results Result Comments Source POC-Glucose meter 2020-05-15 12:07:00 Test Item Value Reference Range Interpretation Comme nts POC-Glucose Meter (test code = 145 mg/dL 70-110 H : TESTED AT [facility] [address]) [facility], 770 30: Change Coordinator/Techni sebastian ID = [id number] for PREETJAYSON E Lab Interpretation (test code = Abnormal 88669-5) [facility] [id number] 12:07:00 Test Item Value Reference Range Interpretation Comments POC-GLUCOSE METER 145 mg/dL 70-110 H : TESTED A T [facility] [address] (BEAKER) (test code = BERTNE R [facility], 1538) [address]: Change Coordinator/Techni sebastian ID = [id number] for ESHA CAO RUDDY SARS-CoV2/RT-PCR (Asymptomatic ONLY)2020-05-15 10:07:00 Test Item Value Reference Range Interpretation Comments SARS-COV2/RT-PCR Negative Not Detected, (test code = Negative, See 85411-4) external report for linked test SARS-COV-2 [facility] ROLY PERFORMING LAB (test code = 05387-3) ANGELA (test code = Negative result for [...] of the Act. Fact Sheet for Healthcare Providers:https://www.Ayasdi/sites/default/f adrian/product/documents/F act_Sheet_HC_Providers_L ljt_SIMO-TvM-8.pdf Fact Sheet for Healthcare Patients:https://www.[employer]/sites/default/fi les/product/documents/Fa ct_Sheet_Patients_Lyra_S ARS-CoV-2.pdf Performing Laboratory:[facility] StreetARS-COV2/RT-PCR ([facility] & REF LABS)2020-05-15 10:07:00 Test Item Value Reference Range Interpretation Comments SARS-COV2/RT-PCR (test Negative Not Detected, Negative, code = 3508585) See external report for linked test SARS-COV-[address] [facility] ROLY (test code = 1414371) Negative result for this test determines that [...] 564(g) of the Act.Fact Sheet for Healthcare Providers:https://www.KeyCAPTCHA/sites/default/files/product/documents/Fact_Shee r_UG_Vmrxpeesf_Rdjz_UABG-LoF-9.pdfFact Sheet for Healthcare Patients:https://www.[employer]/sites/default/files/product/ documents/Nmon_Ibpzf_Syezynrg_Xoad_MFKK-CsF-3.pdfPerforming Laboratory:[facility], [place] [address]VYZE-JYIBQYP METER 2020-05-15 07:57:00 Test Item Value Reference Range Interpretation Comments POC-GLUCOSE METER 145 mg/dL 70-110 H : TESTED A T [facility] [address] (BEAKER) (test code = JEANE Leann [facility], 1538) [address]: Change Coordinator/Techni sebastian ID = [id number] for RUDDY STUBBS Basic metabolic [id number] 06:06:00 Test Item Value Reference Range Interpretation Comments Sodium (test code = 140 meq/L 746-782 2319-2) Potassium (test code 4.0 meq/L 3.5-5.1 Specime n slightly = 2823-3) hemolyzed Chloride (test code = 103 meq/L 98-107 2075-0) CO2 (test code = 26 meq/L 22-2027-9) BUN (test code = 13 mg/dL 7-21 3094-0) Creatinine (test code 0.75 mg/dL 0.57-1.25 Specim en slightly = 2160-0) hemolyzed Glucose (test code = 120 mg/dL 70-105 H 2345-7) Calcium (test code = 8.2 mg/dL 8.4-10.2 L 03162-2) EGFR (test code = 75 mL/min/1.73 [place] [address]-3) NOT ACCURATE CREATININE CLEARANCE IN PREDICTING GLOMERULAR FILTRATION RATE . ESTIMATED GFR I S NOT APPLICABLE FOR DIALYSIS PATIENTS. ANGELA (test code = ANGELA) Change Coordinator ID - NEFTALY RAYOpecprecious slightly icteric Lab Interpretation Abnormal (test code = 08248-2) [facility] METABOLIC [id number] 06:06:00 Test Item Value Reference Range Interpretation Comments SODIUM (BEAKER) 140 meq/L 136-145 (test code = 381) POTASSIUM (BEAKER) 4.0 meq/L 3.5-5.1 Specimen slightly (test code = 379) hemolyzed CHLORIDE (BEAKER) 103 meq/L 98-107 (test code = 382) CO2 (BEAKER) (test 26 meq/L code = 355) BLOOD UREA NITROGEN 13 mg/dL 7-21 (BEAKER) (test code = 354) CREATININE (BEAKER) 0.75 mg/dL 0.57-1.25 Specimen slightly (test code = 358) hemolyzed GLUCOSE RANDOM 120 mg/dL 70-105 H (BEAKER) (test code = 652) CALCIUM (BEAKER) 8.2 mg/dL 8.4-10.2 L (test code = 697) EGFR (BEAKER) (test 75 mL/min/1.73 ESTIMA DOMINIC GFR IS code = 1092) sq m NOT ACCURATE CREATININE CLEARANCE IN PREDICTING GLOMERULAR FILTRATION RATE . ESTIMATED GFR I S NOT APPLICABLE FOR DIALYSIS PATIEN TS. Change Coordinator ID - NEFTALY PERRIpecimen slightly ictericCBC (Hemogram only)2020-05-15 05:38:00 Test Item Value Reference Range Interpretation Comments WBC (test code = 6690-2) 6.7 3.5- 10.5 K/L RBC (test code = 789-8) 4.09 3.93- 5.22 M/L MCHC (test code = 786-4) 32.2 32.2- 35.5 GM/DL Hematocrit (test code = 4544-3) 38.2 % 34.1-44.9 MCV (test code = 787-2) 93.4 fL 79.4-94.8 MCH (test code = 785-6) 30.1 pg 25.6-32.2 RDW (test code = 788-0) 16.8 % 11.7-14.4 H Platelets (test code = 777-3) 99 150- 450 K/CU MM L MPV (test code = 95502-0) 10.1 fL 9.4-12.3 nRBC (test code = 413) 0 0- 0 /100 WBC Lab Interpretation (test code = Abnormal 39286-1) [facility] (HEMOGRAM ONLY)2020-05-15 05:38:00 Test Item Value Reference Range Interpretation Comments WHITE BLOOD CELL COUNT (BEAKER) 6.7 K/ L 3.5-10.5 (test code = 775) RED BLOOD CELL COUNT (BEAKER) 4.09 M/ L 3.93-5.22 (test code = 761) HEMOGLOBIN (BEAKER) (test code = 12.3 GM/DL 11.2-15.7 410) HEMATOCRIT (BEAKER) (test code = 38.2 % 34.1-44.9 411) MEAN CORPUSCULAR VOLUME (BEAKER) 93.4 fL 79.4-94.8 (test code = 753) MEAN CORPUSCULAR HEMOGLOBIN 30.1 pg 25.6-32.2 (BEAKER) (test code = 751) MEAN CORPUSCULAR HEMOGLOBIN CONC 32.2 GM/DL 32.2-35.5 (BEAKER) (test code = 752) RED CELL DISTRIBUTION WIDTH 16.8 % 11.7-14.4 H (BEAKER) (test code = 412) PLATELET COUNT (BEAKER) (test code 99 K/CU MM 150-450 L = 756) MEAN PLATELET VOLUME (BEAKER) 10.1 fL 9.4-12.3 (test code = 754) NUCLEATED RED BLOOD CELLS (BEAKER) 0 /100 WBC 0-0 (test code = 413) POCT-GLUCOSE [id number] 21:59:00 Test Item Value Reference Range Interpretation Comments POC-GLUCOSE METER 129 mg/dL 70-110 H : TESTED A T [facility] 6720 (BEAKER) (test code = JEANE Noriega [facility], 1538) [address]: Change Coordinator/Techni sebastian ID = [id number] for THAD ENRIQUEZ POCT-GLUCOSE [id number] 21:20:00 Test Item Value Reference Range Interpretation Comments POC-GLUCOSE METER 68 mg/dL 70-110 L : TESTED A T [facility] 6720 (BEAKER) (test code = [facility] Leann [facility], 1538) [address]: Change Coordinator/Techni sebastian ID = [id number] for THAD ARROYO Hemoglobin and [id number] 16:58:00 Test Item Value Reference Range Interpretation Comments Hemoglobin (test code = 12.1 11.2- 15.7 GM/DL 786-4) Hematocrit (test code = 36.7 % 34.1-44.9 4544-3) ANGELA (test code = ANGELA) Change Coordinator ID - [id number] Lab Interpretation (test Normal code = 79420-4) [facility]HEMO[facility] AND [id number] 16:58:00 Test Item Value Reference Range Interpretation Comments HEMOGLOBIN (BEAKER) (test code = 12.1 GM/DL 11.2-15.7 410) HEMATOCRIT (BEAKER) (test code = 36.7 % 34.1-44.9 411) Change Coordinator ID - 6000Hemoglobin [id number] 10:03:00 Test Item Value Reference Range Interpretation Comments Hemoglobin A1C (test code = 4548-4) 8.4 % 4.3-6.1 H Lab Interpretation (test code = Abnormal 49828-2) [facility]HEMO[facility] [id number] 10:03:00 Test Item Value Reference Range Interpretation Comments HEMOGLOBIN A1C (BEAKER) (test code = 8.4 % 4.3-6.1 H 368) HEMOGLOBIN AND [id number] 09:18:00 Test Item Value Reference Range Interpretation Comments HEMOGLOBIN (BEAKER) (test code = 12.8 GM/DL 11.2-15.7 410) HEMATOCRIT (BEAKER) (test code = 38.7 % 34.1-44.9 411) Change Coordinator ID - [id number] and Parasite Bjmhlqdhfjz5059-16-39 12:20:00 Test Item Value Reference Range Interpretation Comments O&P Direct Smear (test No ova or parasites No ova or code = 49049-9) seen parasites seen O&P Concentrate Smear No ova or parasites No ova or (test code = 00020-3) seen parasites seen O&P Trichrome Smear No ova or parasites No ova or (test code = 35611-3) seen parasites seen Lab Interpretation (test Normal code = 74092-2) [facility] HospitalOVA AND PARASITE [id number] 12:20:00 Test Item Value Reference Range Interpretation [...] = No growth in 5 days 6463-4) [facility] HospitalBLO[facility] [id number] 08:00:00 Test Item Value Reference Range Interpretation Comments CULTURE (BEAKER) (test No growth in 5 days code = 1095) BLOOD [id number] 08:00:00 Test Item Value Reference Range Interpretation Comments CULTURE (BEAKER) (test No growth in 5 days code = 1095) Stool culture + Shiga [id number] 11:02:00 Test Item Value Reference Range Interpretation Comments Result (test code = No Salmonella, Shigella or 6463-4) Campylobacter isolated [facility] + SHIGA [id number] 11:02:00 Test Item Value Reference Range Interpretation Comments CULTURE (BEAKER) No Salmonella, Shigella (test code = 1095) or Campylobacter isolated ECG 12 [id number] 08:27:58Interface, External Ris In - 05/07/2020 8:28 AM CDTVentricular Rate 76 BPMAtrial Rate 76 BPMP-R Interval 154 msQRS Duration 84 msQ-T Interval 378 msQTC Calculation(Bazett) 425 msP Whitt 19 degreesR Whitt -1 degreesT Whitt 32 degreesSinus rhythm with marked sinus arrhythmiaCannot rule out Inferior infarct , age undeterminedAbnormal ECGWhen compared with ECG of 21-APR-2020 19:42,No significant change wasfoundConfirmed by Ankur Leyva ([id number]) on 05/07/2020 8:27:53 [facility] [id number] 12:51:00 Test Item Value Reference Range Interpretation Comments POC-GLUCOSE METER 255 mg/dL 70-110 H : Notified RN/MD: [facility] (test code = TESTED AT [facility] 6720 1538) [facility], [address]: Change Coordinator/Techni sebastian ID = [id number] for AN KAITLIN POLLARD POCT-GLUCOSE [id number] 08:22:00 Test Item Value Reference Range Interpretation Comments POC-GLUCOSE METER 197 mg/dL 70-110 H : TESTED A T [facility] 67 (BEAKER) (test code = [facility], 1538) [address]: Change Coordinator/Techni sebastian ID = [id number] for AN KAITLIN POLLARD BASIC METABOLIC [id number] 05:46:00 Test Item Value Reference Range Interpretation [...] S NOT APPLICABLE FOR DIALYSIS PATIEN TS. Change Coordinator ID - EVELIA Davilaecprecious slightly ictericPOCT-GLUCOSE [id number] 22:22:00 Test Item Value Reference Range Interpretation Comments POC-GLUCOSE METER 323 mg/dL 70-110 H : TESTED A T [facility] 6720 (BEAKER) (test code = [facility], 1538) 15[address]: Change Coordinator/Techni sebastian ID = [id number] for Tai Lara POCT-GLUCOSE [id number] 17:46:00 Test Item Value Reference Range Interpretation Comments POC-GLUCOSE METER 245 mg/dL 70-110 H : TESTED A T [facility] 6720 (BEAKER) (test code = [facility], 1538) [address]: Change Coordinator/Techni sebastian ID = [id number] for TAYLOR KEANE POCT-GLUCOSE [id number] 12:12:00 Test Item Value Reference Range Interpretation Comments POC-GLUCOSE METER 317 mg/dL 70-110 H : TESTED A T [facility] 6720 (BEAKER) (test code = [facility], 1538) [address]75: Change Coordinator/Techni sebastian ID = [id number] for TAYLOR KEANE Shiga Toxin [id number] 10:32:00 Test Item Value Reference Range Interpretation Comments Shiga toxin 1 (test code = Not detected Not detected 66382-5) Shiga toxin 2 (test code = Not detected Not detected 60211-7) Lab Interpretation (test code = Normal 21129-2) [facility] CenterHIGA TOXIN [id number] 10:32:00 Test Item Value Reference Range Interpretation Comments SHIGA TOXIN 1 (BEAKER) (test Not detected Not detected code = 2177) SHIGA TOXIN 2 (BEAKER) (test Not detected Not detected code = 2179) STOOL PATH [id number] 10:15:00 Test Item Value Reference Range Interpretation Comments Pathogen exam charged (test code = Done 2381) [facility] CenterTOOL [facility] [id number] 10:15:00 Test Item Value Reference Range Interpretation Comments PATHOGEN EXAM CHARGED (BEAKER) (test Done code = 2381) POCT-GLUCOSE [id number] 08:57:00 Test Item Value Reference Range Interpretation Comments POC-GLUCOSE METER 205 mg/dL 70-110 H : TESTED A T [facility] 6720 (BEAKER) (test code = JEANE Noriega [facility], 1538) 15995: Change Coordinator/Techni sebastian ID = [id number] for TAYLOR KEANE HEMOGLOBIN [id number] 08:19:00 Test Item Value Reference Range Interpretation Comments HEMOGLOBIN A1C (BEAKER) (test code = 8.4 % 4.3-6.1 H 368) BASIC METABOLIC [id number] 07:56:00 Test Item Value Reference Range Interpretation [...] S NOT APPLICABLE FOR DIALYSIS PATIEN TS. Change Coordinator ID - PIAYA PERRIpecimedorys slightly ictericPOCT-GLUCOSE [id number] 22:55:00 Test Item Value Reference Range Interpretation Comments POC-GLUCOSE METER 229 mg/dL 70-110 H : TESTED A T [facility] 6720 (BEAKER) (test code = JEANE Noriega [facility], 1538) [address]: Change Coordinator/Techni sebastian ID = [id number] for Karla Jackson POCT-GLUCOSE [id number] 17:45:00 Test Item Value Reference Range Interpretation Comments POC-GLUCOSE METER 306 mg/dL 70-110 H : TESTED A T [facility] 6720 (BEAKER) (test code = JEANE Noriega [facility], 1538) [address]: Change Coordinator/Techni sebastian ID = [id number] for DI EPSTEIN POCT-GLUCOSE [id number] 11:59:00 Test Item Value Reference Range Interpretation Comments POC-GLUCOSE METER 150 mg/dL 70-110 H : TESTED A T [facility] 6720 (BEAKER) (test code = GELACIOAR Leann [facility], 1538) [address]: Change Coordinator/Techni sebastian ID = [id number] for DI EPSTEIN [id number] 10:18:00 Test Item Value Reference Range Interpretation Comments Potassium (test code = 4.9 meq/L 3.5-5.1 Speci men 2823-3) slightly hemolyzed ANGELA (test code = ANGELA) Change Coordinator ID - EVELIA M Lab Interpretation Normal (test code = 87841-2) [facility] HospitalPOTASSIUM2020-09-17 10:18:00 Test Item Value Reference Range Interpretation Comments POTASSIUM (BEAKER) 4.9 meq/L 3.5-5.1 Specimen slightly (test code = 379) hemolyzed Change Coordinator ID - EVELIA MPOCT-GLUCOSE [id number] 08:04:00 Test Item Value Reference Range Interpretation Comments POC-GLUCOSE METER 156 mg/dL 70-110 H : TESTED A T [facility] 6720 (BEAKER) (test code = GELACIOAR Leann [facility], 1538) [address]: Change Coordinator/Techni sebastian ID = [id number] for DI EPSTEIN BASIC METABOLIC [id number] 05:51:00 Test Item Value Reference Range Interpretation [...] S NOT APPLICABLE FOR DIALYSIS PATIEN TS. Change Coordinator ID - PIAYA LSpecimen slightly ictericClostridium difficile GDH Toxin 2020-05-04 05:03:00 Test Item Value Reference Range Interpretation Comments C. Difficle Toxin Negative Negative (test code = 4487716214) C. Difficile GDH Positive Negative A C. difficil e Antigen (test code = present but toxin 0014482279) not detected. Indicates colonization wi th non-toxigenic [...] use. Lab Interpretation Abnormal (test code = 13048-1) [facility]. DIFFICILE GDH [id number] 05:03:00 Test Item Value Reference Range Interpretation Comments CDT TOXIN (test code Negative Negative = 6407435288) CDT GDH ANTIGEN Positive Negative A C. difficile present but (test code = toxin not detec dominic. 5215796490) Indicates colon ization with non-toxige faith strain [...] CENTER Microbiology Lab prior to clinical use.Fecal [id number] 00:34:00 Test Item Value Reference Range Interpretation Comments Fecal Leukocytes (test No fecal leukocytes No fecal leukocytes code = 11978-3) seen seen Lab Interpretation Normal (test code = 91155-2) [facility] HospitalFECAL [id number] 00:34:00 Test Item Value Reference Range Interpretation Comments FECAL LEUKOCYTES No fecal leukocytes No fecal leukocytes (BEAKER) (test code = seen seen 992) POCT-GLUCOSE [id number] 22:14:00 Test Item Value Reference Range Interpretation Comments POC-GLUCOSE METER 224 mg/dL 70-110 H : TESTED A T [facility] 6720 (BEAKER) (test code = [facility], 1538) [address]: Change Coordinator/Techni sebastian ID = [id number] for SHAHZAD BRUCE POCT-GLUCOSE [id number] 14:51:00 Test Item Value Reference Range Interpretation Comments POC-GLUCOSE METER 120 mg/dL 70-110 H : TESTED A T [facility] 6720 (BEAKER) (test code = [facility] MOBITRAC [facility], 1538) [address]: Change Coordinator/Techni sebastian ID = [id number] for NCHEZ, MIYA BASIC METABOLIC [id number] 11:35:00 Test Item Value Reference Range Interpretation [...] S NOT APPLICABLE FOR DIALYSIS PATIEN TS. Change Coordinator ID - EVELIA Davilaecimen slightly ictericHepatic function [id number] 11:32:00 Test Item Value Reference Range Interpretation Comments Protein, Total (test code 4.5 6.0- 8.3 gm/dL L = 2885-2) Albumin (test code = 3.0 g/dL 3.5-5 L 51309-7) Total Bilirubin (test 0.6 mg/dL 0.2-1.2 code = 1975-2) Bilirubin, Direct (test 0.3 mg/dL 0.1-0.5 code = 1968-7) Alkaline Phosphatase 48 U/L 40-150 (test code = 6768-6) AST (test code = 1920-8) 40 U/L 5-34 H ALT (test code = 1742-6) 107 U/L 6-55 H ANGELA (test code = ANGELA) Change Coordinator ID - EVELIA Davilaecimen slightly icteric Lab Interpretation (test Abnormal code = 89540-4) [facility]2020-09-16 11:32:00 Test Item Value Reference Range Interpretation Comments Magnesium (test code = 1.9 mg/dL 1.6-2.6 42102-1) ANGELA (test code = ANGELA) Change Coordinator ID - EVELIA M Lab Interpretation (test Normal code = 61143-5) [facility]2020-09-16 11:32:00 Test Item Value Reference Range Interpretation Comments MAGNESIUM (BEAKER) (test code = 1.9 mg/dL 1.6-2.6 627) Change Coordinator ID - EVELIA MHEPATIC FUNCTION [id number] 11:32:00 Test Item Value Reference Range Interpretation [...] code = 107 U/L 6-55 H 347) Change Coordinator TIARA Ramon slightly ictericProthrombin time/[id number] 07:18:00 Test Item Value Reference Range Interpretation [...] valves. Lab Interpretation Abnormal (test code = 23121-7) [facility] HospitalPROTHROMBIN TIME/[id number] 07:18:00 Test Item Value Reference Range Interpretation Comments PROTIME (ENRICO) (test code = 14.7 seconds 11.9-14.2 H 759) INR (BEAKER) (test code = 370) 1.18 <=5.90 Effective 01/13/2019: PT Reference Range ChangeNew: 11.9-14.2 Previous: 11.7- 14.7RECOMMENDED COUMADIN/WARFARIN INR THERAPY RANGESSTANDARD DOSE: 2.0-3.0 Includes: PROPHYLAXIS for venous thrombosis, systemic embolization; TREATMENT for venous thrombosis and/or pulmonary embolus.HIGH RISK: Target INR is2.5-3.5 for patients wiht mechanical heart valves.CBC with platelet count + automated [id number] 07:11:00 Test Item Value Reference Range Interpretation [...] K/CU MM L MPV (test code = 82394-1) 10.9 fL 9.4-12.3 nRBC (test code = [...] 2801) Lab Interpretation (test code = Abnormal 83186-4) [facility] W/PLT COUNT & AUTO [id number] 07:11:00 Test Item Value Reference Range Interpretation [...] PERCENT (BEAKER) (test code = 2801) Methylmalonic [id number] 09:07:00 Test Item Value Reference Interpretation Comments Range Methlymalonic 206 nmol/L 87-318 This test was Acid,Ser (test developed and its code = 2276165) analytical p erformance characteristics havebeen determ ined by [facility] .It has not been cleare d or approved by FDA . This assay has been validatedpursua nt to the CLIA regula tions and is used for clinical purpos es. ANGELA (test code = Performing Lab ANGELA) EZ [facility] [address] [place] [address] Shannan Singletary MD, PhD, RICHI [facility] HospitalBLOOD [id number] 23:00:00 Test Item Value Reference Range Interpretation Comments CULTURE (BEAKER) (test No growth in 5 days code = 1095) BLOOD [id number] 23:00:00 Test Item Value Reference Range Interpretation Comments CULTURE (BEAKER) (test No growth in 5 days code = 1095) Protein electrophoresis, [id number] 13:55:00 Test Item Value Reference Range Interpretation [...] = 2660) ANGELA (test code = ANGELA) Change Coordinator ID - EVELIA M Lab Interpretation (test Abnormal code = 52044-5) [facility] HospitalPROTEIN ELECTROPHORESIS, [id number] 13:55:00 Test Item Value Reference Range Interpretation [...] and/or protein-losing enteropathy. No monoclonal bands detected. [id number] Yudith Emanuel MD (BEAKER) (test code = (electronic signature) 2616) PROTEIN TOTAL SERUM, 5.0 gm/dL 6.0-8.3 L SPEP (BEAKER) (test code = 2660) Change Coordinator ID - EVELIA MHepatitis panel, [id number] 17:11:00 Test Item Value Reference Range Interpretation Comments Hep A IgM (test code = Nonreactive Nonreactive 21867-8) Hep B C IgM (test code = Nonreactive Nonreactive 07362-6) Hepatitis C Ab (test code = Nonreactive Nonreactive 35134-4) HBsAg Screen (test code = Nonreactive Nonreactive 5195-3) ANGELA (test code = ANGELA) Change Coordinator ID - DB Lab Interpretation (test Normal code = 53844-4) [facility] HospitalHEPATITIS PANEL, [id number] 17:11:00 Test Item Value Reference Range Interpretation Comments HEPATITIS A IGM ANTIBODY (BEAKER) Nonreactive Nonreactive (test code = 498) HEPATITIS B CORE IGM ANTIBODY Nonreactive Nonreactive (BEAKER) (test code = 645) HEPATITIS C ANTIBODY (BEAKER) Nonreactive Nonreactive (test code = 367) HEPATITIS B SURFACE ANTIGEN (2) Nonreactive Nonreactive (BEAKER) (test code = 2585) Change Coordinator ID - DBPOCT-GLUCOSE [id number] 16:42:00 Test Item Value Reference Range Interpretation Comments POC-GLUCOSE METER 236 mg/dL 70-110 H : TESTED A T 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 6720 (BEAKER) (test code = JEANE Noriega [facility], 1538) [address]: Change Coordinator/Techni sebastian ID = [id number] for Giulia Wade HEMOGLOBIN [id number] 12:07:00 Test Item Value Reference Range Interpretation Comments HEMOGLOBIN A1C (BEAKER) (test code = 8.0 % 4.3-6.1 H 368) Comprehensive metabolic [id number] 11:48:00 Test Item Value Reference Range Interpretation Comments Protein, Total (test 5.6 6.0- 8.3 gm/dL L Speci men code = 2885-2) slightly hemolyzed Albumin (test code = 3.4 g/dL 3.5-5 L [place] n 42747-0) slightly hemolyzed Alkaline Phosphatase 79 U/L 40-150 (test code = 6768-6) Total Bilirubin (test 0.8 mg/dL 0.2-1.2 Specim en code = 1975-2) slightly hemolyzed Sodium (test code = 136 meq/L 103-379 8414-2) Potassium (test code 4.5 meq/L 3.5-5.1 Specime n = 2823-3) slightly hemolyzed Chloride (test code = 100 meq/L 98-107 2074-0) CO2 (test code = 31 meq/L 22-29 H 2027-) BUN (test code = 24 mg/dL 7-21 H 3094-0) Creatinine (test code 0.90 mg/dL 0.57-1.25 Specim en = 2160-0) slightly hemolyzed Glucose (test code = 336 mg/dL 70-105 H 2345-7) Calcium (test code = 8.9 mg/dL 8.4-10.2 40306-1) AST (test code = 45 U/L 5-34 H Specimen 192-8) slightly hemolyzed ALT (test code = 120 U/L 6-55 H Specimen 1742-6) slightly hemolyzed EGFR (test code = 61 mL/min/1.73 [place] [address]-3) NOT ACCURATE CREATININE CLEARANCE IN PREDICTING GLOMERULAR FILTRATION RATE . ESTIMATED GFR I S NOT APPLICABLE FOR DIALYSIS PATIENTS. ANGELA (test code = ANGELA) Change Coordinator ID - SUSI Giovanniecimen moderately icteric Lab Interpretation Abnormal (test code = 61070-4) [facility] HospitalLipid [id number] 11:48:00 Test Item Value Reference Range Interpretation Comments Triglycerides (test 225 mg/dL Specimen code = 2571-8) slightly hemolyzed Cholesterol (test 241 mg/dL Specimen code = 3-3) slightly hemolyzed HDL (test code = 60 mg/dL 2085-04) LDL Calculated (test 136 mg/dL code = 48496-4) ANGELA (test code = Triglyceride ANGELA) Reference Range: Low Risk <150 Borderline 150-199 High Risk 200-499 Very High Risk >=500 Cholesterol Reference Range: Low Risk <200 Borderline 200-239 High Risk >240 HDL Cholesterol Reference Range: Low Risk >=60 High Risk <40 LDL Cholesterol Reference Range: Optimal <100 Near Optimal 100-129 Borderline 130-159 High 160-189 Very High >=190 Change Coordinator ID Juan A SUSI MSpecimen moderately icteric [facility] HospitalCOMPREHENSIVE METABOLIC [id number] 11:48:00 Test Item Value Reference Range Interpretation [...] S NOT APPLICABLE FOR DIALYSIS PATIEN TS. Change Coordinator ID - SUSI MSpecimen moderately ictericLIPID [id number] 11:48:00 Test Item Value Reference Range Interpretation [...] Borderline 130-159 High 160-189 Very High >=190 Change Coordinator ID - SUSI MSpecimen moderately ictericTSH/Free T4 If [id number] 10:29:00 Test Item Value Reference Range Interpretation Comments TSH (test code = 3.805 0.350- 4.940 uIU/mL 91747-9) ANGELA (test code = ANGELA) Change Coordinator ID - AALUCRETIAID Lab Interpretation (test Normal code = 90364-9) [facility] HospitalTSH/FREE T4 IF [id number] 10:29:00 Test Item Value Reference Range Interpretation Comments THYROID STIMULATING HORMONE 3.805 uIU/mL 0.350-4.940 (BEAKER) (test code = 772) Change Coordinator ID - EERNEWWAflxxjnu4868-48-78 09:30:00 Test Item Value Reference Range Interpretation Comments Ferritin (test code = 292.76 ng/mL 5-275 H 2276-4) ANGELA (test code = ANGELA) Change Coordinator ID - AAHAMID Lab Interpretation (test Abnormal code = 96478-0) [facility] HospitalVitamin B12 and [id number] 09:30:00 Test Item Value Reference Range Interpretation Comments Vitamin B12 (test code = 1155 pg/mL 213-816 H 2132-9) Folate (test code = 8.50 ng/mL >=7.00 2284-8) ANGELA (test code = ANGELA) Change Coordinator ID - AAHAMID Lab Interpretation (test Abnormal code = 88449-4) [facility] HospitalFERRITIN2020 09:30:00 Test Item Value Reference Range Interpretation Comments FERRITIN (BEAKER) (test code = 292.76 ng/mL 5.00-275.00 H 361) Change Coordinator ID - AAHAMIDVITAMIN B12 AND [id number] 09:30:00 Test Item Value Reference Range Interpretation Comments VITAMIN B12 (BEAKER) (test code = 1155 pg/mL 213-816 H 774) FOLATE (BEAKER) (test code = 362) 8.50 ng/mL >=7.00 Change Coordinator ID - AAHAMIDPOCT-GLUCOSE [id number] 08:10:00 Test Item Value Reference Range Interpretation Comments POC-GLUCOSE METER 197 mg/dL 70-110 H : TESTED A T [facility] 6720 (BEAKER) (test code = JEANE Leann [place], 1538) [address]: Change Coordinator/Techni sebastian ID = [id number] for Dc Giulia mckee MR, BRAIN, [id number] 02:52:00Unlisted Reason for Exam - Click Yes [...] 02:52:33 MR brain without & with IV [id number] 02:52:00Interface, External Ris In - 04/24/2020 2:54 [...] Rao Torre MDReport Verified Date/Time: 04/24/2020 02:52:33 [facility] 2020-04-23 23:25:00Abdomen limited area? Add [...] and right nephrectomy. . Signed: Rao Torre MDReport Verified Date/Time: 04/23/2020 23:25:58 US abdomen [id number] 23:25:00 Interface, External Ris In - 04/23/2020 [...] and right nephrectomy. . Signed: Rao Torre MDReport Verified Date/Time: 04/23/2020 23:25:58 [facility] [id number] 23:17:00 Test Item Value Reference Range Interpretation Comments POC-GLUCOSE METER 206 mg/dL 70-110 H : TESTED A T [facility] 6720 (EN[place]) (test code = [facility] 1538) [address]: Change Coordinator/Techni sebastian ID = [id number] for RONEL MUSTAFAA POCT-GLUCOSE [id number] 17:40:00 Test Item Value Reference Range Interpretation Comments POC-GLUCOSE METER 249 mg/dL 70-110 H : Notified RN/MD: (ENRICO) (test code = TESTED AT [facility] 6720 1538) [facility], [address]: Change Coordinator/Techni sebastian ID = [id number] for Arleth ctorJazmin CT, BRAIN, WITHOUT [id number] 10:32:00Unlisted Reason for Exam - Click Yes [...] recommended for further evaluation. Signed: [facility] Verified Date/Time: 04/23/2020 10:32:40 CT brain without IV [id number] 10:32:00Interface, External Ris In - 04/23/2020 10:34 [...] recommended for further evaluation. Signed: Stephanie Rangel [facility] Verified Date/Time: 04/23/2020 10:32:40 [facility] W/PLT COUNT & AUTO DIFFERENTIAL 2020-04-23 05:31:00 [...] (BEAKER) (test code = 2801) BASIC METABOLIC [id number] 05:03:00 Test Item Value Reference Range Interpretation [...] S NOT APPLICABLE FOR DIALYSIS PATIEN TS. Change Coordinator ID - EVELIA Davilaecimen moderately ictericHEPATIC FUNCTION [id number] 05:03:00 Test Item Value Reference Range Interpretation [...] Specimen moderately (test code = 347) hemolyzed Change Coordinator ID - EVELIA Davilaecimen moderately ictericPOCT-GLUCOSE [id number] 04:01:00 Test Item Value Reference Range Interpretation Comments POC-GLUCOSE METER 193 mg/dL 70-110 H : TESTED A T [facility] 6720 (BEAKER) (test code [facility], = 1538) 40973: Change Coordinator/Techni sebastian ID = [id number] for RUSSELL , ESME POCT-GLUCOSE [id number] 21:04:00 Test Item Value Reference Range Interpretation Comments POC-GLUCOSE METER 198 mg/dL 70-110 H : TESTED A T [facility] 6720 (BEAKER) (test code = [facility], 1538) 63169: Change Coordinator/Techni sebastian ID = [id number] for Alla Molina 2D Echo W/O Doppler(No Doppler)2020-04-22 16:55:47Ejection FractionSLEH ECHO HEARTLAB MKCKESSON CPACSInterface, External Ris In - 04/22/2020 4:55 PM C DTTransthoracic Echocardiography Report (TTE) Demographics Patient Name TUNDE WELLER Date of Study 04/22/2020 DARRION Gender Female Visit Number [id number] Race Unknown Room Number 1550 Number Date of 1940 Referring Fco Monte Physician Age 79 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 Grade 1 diastolic dysfunction (impaired relaxation and [...] CO: 5.65 l/min LVOT CI: 3.65 l/min/m^2[facility] [id number] 16:17:00 Test Item Value Reference Range Interpretation Comments POC-GLUCOSE METER 266 mg/dL 70-110 H : TESTED A T [facility] 6720 (Cedexis) (test code = [place], 1538) 94168: Change Coordinator/Techni sebastian ID = [id number] for BRUCE DUMONT SARS-COV2/RT-PCR ([facility])2020-04-22 14:59:00 Test Item Value Reference Range Interpretation Comments SARS-COV2/RT-PCR (test Negative Not Detected, Negative, code = 5357046) See external report for linked test SARS-COV-[address] [facility] ROLY (test code = 6384231) Negative result for this test determines that [...] 564(g) of the Act.Fact Sheet for Healthcare Providers:https://www.[employer]/sites/default/files/product/documents/Fact_Shee b_HX_Uvewoasjl_Xhpd_WVJR-EeB-7.pdfFact Sheet for Healthcare Patients:https://www.[employer]/sites/default/files/product/ documents/Uxto_Ldgva_Woabvuxy_Kvhm_EZZR-QxZ-2.pdfPerforming Laboratory:[facility], [place] [address]CNVR-MDMTSOI METER 2020-04-22 12:21:00 Test Item Value Reference Range Interpretation Comments POC-GLUCOSE METER 210 mg/dL 70-110 H : TESTED A T [facility] 6720 (BEAKER) (test code = JEANE R [facility], 1538) 49023: Change Coordinator/Techni sebastian ID = [id number] for BRUCE DUMONT [id number] 11:00:00 Test Item Value Reference Range Interpretation Comments Phosphorus (test code = 3.1 mg/dL 2.3-4.7 2777-1) ANGELA (test code = ANGELA) Change Coordinator ID - EVELIA Weiss Lab Interpretation (test Normal code = 24603-7) [facility] 11:00:00 Test Item Value Reference Range Interpretation Comments PHOSPHORUS (BEAKER) (test code = 3.1 mg/dL 2.3-4.7 604) Change Coordinator ID - EVELIA [id number] 11:00:00 Test Item Value Reference Range Interpretation Comments MAGNESIUM (BEAKER) (test code = 1.9 mg/dL 1.6-2.6 627) Change Coordinator ID - EVELIA MBASIC METABOLIC [id number] 11:00:00 Test Item Value Reference Range Interpretation [...] S NOT APPLICABLE FOR DIALYSIS PATIEN TS. Change Coordinator ID - EVELIA MSpecimen moderately ictericHEPATIC FUNCTION [id number] 11:00:00 Test Item Value Reference Range Interpretation [...] code = 112 U/L 6-55 H 347) Change Coordinator ID - EVELIA Ramon moderately ictericPOCT-GLUCOSE [id number] 08:40:00 Test Item Value Reference Range Interpretation Comments POC-GLUCOSE METER 187 mg/dL 70-110 H : TESTED A T [facility] 6720 (BEAKER) (test code = [place], 1538) 39301: Change Coordinator/Techni sebastian ID = [id number] for BRUCE DUMONT CBC W/PLT COUNT & AUTO [id number] 07:04:00 Test Item Value Reference Range Interpretation [...] PERCENT (BEAKER) (test code = 2801) POCT-GLUCOSE [id number] 23:41:00 Test Item Value Reference Range Interpretation Comments POC-GLUCOSE METER 211 mg/dL 70-110 H : TESTED A T [facility] 6720 (BEAKER) (test code = [place], 1538) 87628: Change Coordinator/Techni sebastian ID = [id number] for SHABBIR BEAN Urinalysis w/[id number] 21:58:00 Test Item Value Reference Range Interpretation Comments Color, UA (test code = Light Yellow 5778-6) Clarity, UA (test code = Clear 5767-9) Specific [place], UA (test 1.029 1.001-1.035 code = 5811-5) pH, UA (test code = 6.0 5.0-8.0 5803-2) Protein, UA (test code = Negative Negative 91602-2) Glucose, UA (test code = 30 mg/dL Negative A 365) Ketones, UA (test code = Negative Negative 2514-8) Bilirubin, UA (test code = Negative Negative 79678-5) Blood, UA (test code = Negative Negative 25268-3) Nitrite, UA (test code = Negative Negative 5802-4) Leukocytes, UA (test code Trace Negative A = 5799-2) Urobilinogen, UA (test 0.2 mg/dL 0.2-1 code = 69371-1) RBC, UA (test code = 1 /HPF 82094-4) WBC, UA (test code = 3 /HPF 5821-4) Squam Epithel, UA (test <1 /HPF code = 66795-4) Specimen Source (test code = 2795) ANGELA (test code = ANGELA) Change Coordinator ID - [auto]Change Coordinator ID - steve Lab Interpretation (test Abnormal code = 29438-2) [facility]/ [id number] 21:58:00 Test Item Value Reference Range Interpretation [...] = 516) SOURCE(BEAKER) (test code = 2795) Change Coordinator ID - [auto]Change Coordinator ID - hankFungus culture + [id number] 18:07:00 Test Item Value Reference Range Interpretation Comments Result (test code = 3+ Lorri albicans A 6463-4) Fungus Smear (test code = No fungi seen 1406) Lab Interpretation (test Abnormal code = 87899-0) [facility] + [id number] 18:07:00 Test Item Value Reference Range Interpretation Comments CULTURE (BEAKER) A 3+ Lorri albicans (test code = 1095) FUNGUS SMEAR No fungi seen (BEAKER) (test code = 1406) Anaerobic [id number] 18:52:00 Test Item Value Reference Range Interpretation Comments Result (test code = No anaerobes isolated 6463-4) [facility] [id number] 18:52:00 Test Item Value Reference Range Interpretation Comments CULTURE (BEAKER) (test No anaerobes isolated code = 1095) CBC W/PLT COUNT & AUTO [id number] 06:39:00 Test Item Value Reference Range Interpretation [...] (BEAKER) (test code = 2801) COMPREHENSIVE METABOLIC [id number] 06:17:00 Test Item Value Reference Range Interpretation [...] S NOT APPLICABLE FOR DIALYSIS PATIEN TS. Change Coordinator ID - EVELIA MCOMPREHENSIVE METABOLIC [id number] 05:24:00 Test Item Value Reference Range Interpretation [...] S NOT APPLICABLE FOR DIALYSIS PATIEN TS. Change Coordinator ID - EDASIWOUND CULTURE + GRAM [id number] 10:29:00 Test Item Value Reference Range Interpretation [...] <1+ budding yeast (BEAKER) (test code = 769869) CBC W/PLT COUNT & AUTO [id number] 05:33:00 Test Item Value Reference Range Interpretation [...] (BEAKER) (test code = 2801) COMPREHENSIVE METABOLIC [id number] 05:08:00 Test Item Value Reference Range Interpretation [...] S NOT APPLICABLE FOR DIALYSIS PATIEN TS. Change Coordinator ID - EDASISpecimen slightly ictericCOMPREHENSIVE METABOLIC PANEL [...] S NOT APPLICABLE FOR DIALYSIS PATIEN TS. Change Coordinator ID - PIAYA LSpecimen slightly ictericCBC W/PLT COUNT & AUTO [id number] 05:03:00 Test Item Value Reference Range Interpretation [...] (BEAKER) (test code = 2801) CT, DRAINAGE, [id number] 12:12:00Reason for exam:->Diverticulitis with increasing size of abscessFINAL REPORT PROCEDURE: CT, DRAINAGE, ABDOMINAL DOSE REDUCTION: The examination was performed according to departmental dose-optimization program which includes automated exposure control, adjustment of the mA and/or kV according to patient size and/or use of iterative reconstruction technique. HISTORY: Diverticulitis with increasing size of abscess Change Coordinator: Bam Ko MD Moderate sedation: See nursing [...] dilated using serial dilators. Subsequently a 8 Cameroonian all-purpose drainage catheter was advanced into the [...] Ko Verified Date/Time: 04/01/2020 12:12:30 Reading Location: [facility] B1 C013T Transitional Reading Room CT drainage [id number] 12:12:00Interface, External Ris In - 04/01/2020 12:14 PM CDTFINAL REPORT PROCEDURE: CT, DRAINAGE, ABDOMINAL DOSE REDUCTION: The examination was performed according to departmental dose-optimization program which includes automated exposure control, adjustment of the mA and/or kV according to patient size and/or use of iterative reconstruction technique. HISTORY: Diverticulitis with increasing size of abscess Change Coordinator: Bam Ko MD Moderate sedation: See nursing [...] dilated using serial dilators. Subsequently a 8 Cameroonian all-purpose drainage catheter was advanced into the [...] Ko Verified Date/Time: 04/01/2020 12:12:30 Reading Location: [facility] C013T Transitional Reading Room Electronicallysigned by: BAM KO MD on 04/01/2020 12:12 [facility] W/PLT COUNT & AUTO [id number] 06:34:00 Test Item Value Reference Range Interpretation [...] 0-1 PERCENT (BEAKER) (test code = 2801) [id number] 06:33:00 Test Item Value Reference Range Interpretation Comments MAGNESIUM (BEAKER) 2.0 mg/dL 1.6-2.6 Specimen slightly (test code = 627) hemolyzed Change Coordinator ID - EVELIA [id number] 06:33:00 Test Item Value Reference Range Interpretation Comments PHOSPHORUS (BEAKER) 2.0 mg/dL 2.3-4.7 L Specimen slightly (test code = 604) hemolyzed Change Coordinator ID - EVELIA MCOMPREHENSIVE METABOLIC [id number] 06:33:00 Test Item Value Reference Range Interpretation [...] S NOT APPLICABLE FOR DIALYSIS PATIEN TS. Change Coordinator ID - EVELIA MSpecimen slightly ictericCOMPREHENSIVE METABOLIC [...] S NOT APPLICABLE FOR DIALYSIS PATIEN TS. Change Coordinator ID - MICHELL CSpecimen slightly [id number] 09:49:00 Test Item Value Reference Range Interpretation Comments MAGNESIUM (BEAKER) (test code = 2.1 mg/dL 1.6-2.6 627) Change Coordinator ID - MICHELL CLactic acid, [id number] 09:45:00 Test Item Value Reference Range Interpretation Comments Lactate, Venous (test code 1.05 mmol/L 0.5-2.2 = 2872) ANGELA (test code = ANGELA) Change Coordinator ID - MICHELL C Lab Interpretation (test Normal code = 08354-0) [facility] HospitalLACT[facility] ACID, [id number] 09:45:00 Test Item Value Reference Range Interpretation Comments LACTATE BLOOD VENOUS (2) (BEAKER) 1.05 mmol/L 0.50-2.20 (test code = 2872) Change Coordinator ID - MICHELL [id number] 09:35:00 Test Item Value Reference Range Interpretation Comments Protime (test code = 13.5 11.9- 14.2 5902-2) seconds INR (test code = 1.06 <=5.90 6301-6) PTT (test code = 24.2 22.5- 36.0 34172-6) seconds ANGELA (test code = ANGELA) Effective 01/13/2019: PT Reference Range ChangeNew: 11.9-14.2 Previous: 11.7-14.7 RECOMMENDED COUMADIN/WARFARIN INR THERAPY RANGESSTANDARD DOSE: 2.0-3.0 Includes: PROPHYLAXIS for venous thrombosis, systemic embolization; TREATMENT for venous thrombosis and/or pulmonary embolus.HIGH RISK: Target INR is 2.5-3.5 for patients wiht mechanical heart valves. Lab Interpretation Normal (test code = 35928-8) [facility] HospitalPT/[id number] 09:35:00 Test Item Value Reference Range Interpretation [...] mechanical heart valves.CBC W/PLT COUNT & AUTO [id number] 09:26:00 Test Item Value Reference Range Interpretation [...] % 0-1 PERCENT (BEAKER) (test code = 6711)
[2020-06-29] MEDS ORDERED: TRAMADOL HCL 50 MG TAB ONE ×2 (17:53→20:33)
[2020-06-29 18:51] LABS: Absolute Lymphocytes (CBC) 0.6 K/uL (0.7-4.9); Basophils % 1.1 % (0-1.3); Hematocrit 32.2 % (36.0-45.0); Lymphocytes % 7.2 % (15.3-44.8); MPV 8.1 fL (7.6-11.3); RBC Red Blood Cell Count 3.33 M/uL (3.86-4.86)
[2020-06-29 19:06] LABS: C-Reactive Protein 72.5 mg/L (<3.00); Potassium 3.1 mmol/L (3.5-5.1)
--- NOTE | 2020-06-29 19:29 | RAD REPORT ---
EXAM DESCRIPTION: CT - Head Brain Wo Cont - 06/29/2020 7:23 pm CLINICAL HISTORY: Headache COMPARISON: 2018 TECHNIQUE: Computed axial tomography of the head was obtained. IV contrast was not requested. All CT scans are performed using dose optimization technique as appropriate and may include automated exposure control or mA/KV adjustment according to patient size. FINDINGS: An intracranial bleed is not seen . The ventricles are normal in caliber. No extra-axial fluid collection is noted. 18 millimeter calcified mass abuts the right occipital bone and tentorium. It is without significant change. No surrounding edema. This likely represents meningioma. Fluid within the sinuses/ mastoids is not seen. IMPRESSION: No acute intracranial abnormality is seen. If patient's symptoms persist MRI of the bra in would be recommended.
--- NOTE | 2020-06-29 19:33 | RAD REPORT ---
EXAM DESCRIPTION: CT - Soft Tissue Neck W/Contr - 06/29/2020 7:24 pm CLINICAL HISTORY: Neck pain and swelling COMPARISON: None. TECHNIQUE: Computed axial tomography of the neck was obtained. 50 cc Isovue 300 was administered in travenously. Coronal and sagittal reconstruction was performed. All CT scans are performed using dose optimization technique as appropriate and may include automated exposure control or mA/KV adjustment according to patient size. FINDINGS: The pharynx, tongue base, larynx and subglottic trachea appear unremarkable The parotid, and submandibular glands appear unremarkable. Little thyroid tissue seen No lymphadenopathy is seen The sinuses and mastoids are clear. IMPRESSION: No acute abnormality is displayed
--- NOTE | 2020-06-29 19:38 | RAD REPORT ---
EXAM DESCRIPTION: CT - Facial Bones W/ Mpr - 06/29/2020 7:23 pm CLINICAL HISTORY: Facial pain and swelling COMPARISON: None TECHNIQUE: Computed axial tomography of the face was obtained. Coronal and sagittal reconstruction w as performed. All CT scans are performed using dose optimization technique as appropriate and may include automated exposure control or mA/KV adjustment according to patient size. FINDINGS: Significant edema within the subcutaneous tissues is not noted. A fracture is not seen. A TMJ dislocation is not noted. The globes are intact. The periorbital fat is clear. Fluid within the sinuses is not seen. Mild chronic ethmoid sinusitis IMPRESSION: No acute abnormality displayed
--- NOTE | 2020-06-29 19:53 | EDPHYS ---
Physician Documentation [facility] Name: Radha Ocampo Age: 79 yrs Sex: Female : 1940 Arrival Date: 06/29/2020 Time: 16:26 Bed 14 Private MD: LEOBARDO Physician [place] HPI: 06/29 17:15 This 79 yrs old Female presents to ER via Wheelchair with complaints of kdr Facial Swelling, Headache. 17:15 The patient complains of pain to the right frontal area, right side of the back of kdr head, right temporal area, right side of forehead, right occipital area, right ear, right islam, right base of the skull, right zygomatic area and right cheek. The patient describes the headache as aching, a pressure, waxing and waning. Onset: The symptoms/episode began/occurred gradually, 1 week(s) ago. Associated signs and symptoms: Pertinent positives: The patient has had this pain for about a week and was initially considered to be shingles by the patient but Dr. Deleon did feel this to be true. Bxar-yno-lkbt, she was started on Acyclovir and then Lyrica. The only thing that seems to help is an ice bag. Severity of symptoms: At its worst the pain was moderate, severe, earlier today, in the emergency department the pain has resolved. Headache History: Other The patient has not had this pain prior to the last week. The symptoms are alleviated by cold, the symptoms are aggravated by movement, touching the area. The patient has not experienced similar symptoms in the past. The patient has been recently seen by a physician: the patient's primary care provider. Historical: - Allergies: 16:36 meperidine HCl (rash); hb 16:36 Morphine; hb - PMHx: 16:36 Depression; Giant Cell Arthritis; Myocardial infarction; renal cell carcinoma; hb Hyperlipidemia; ADD/ADHD; DM chemical induced; renal cell carcinoma contained; giant cell arteritis; Hypertension; Hypothyroidism; stage 3 kidney failure; - PSHx: 16:36 abdominal diverticuli with abscess; hb - Immunization history:: Adult Immunizations up to date. - Social history:: Smoking status: Patient denies any tobacco usage or history of. ROS: 17:15 Constitutional: Negative for fever, chills, and weight loss, Eyes: Negative for injury, kdr pain, redness, and discharge, ENT: Negative for injury, pain, and discharge, Neck: Negative for injury, pain, and swelling, Cardiovascular: Negative for chest pain, palpitations, and edema, Respiratory: Negative for shortness of breath, cough, wheezing, and pleuritic chest pain, Abdomen/GI: Negative for abdominal pain, nausea, vomiting, diarrhea, and constipation, Back: Negative for injury and pain, : Negative for injury, bleeding, discharge, and swelling, MS/Extremity: Negative for injury and deformity, Skin: Negative for injury, rash, and discoloration, Psych: Negative for depression, anxiety, suicide ideation, homicidal ideation, and hallucinations, Allergy/Immunology: Negative for hives, rash, and allergies, Endocrine: Negative for neck swelling, polydipsia, polyuria, polyphagia, and marked weight changes, Hematologic/Lymphatic: Negative for swollen nodes, abnormal bleeding, and unusual bruising. 17:15 Neuro: Positive for Right facial and scalp pain. Exam: 17:15 Constitutional: This is a well developed, well nourished patient who is awake, alert, kdr and in no acute distress. Head/Face: Normocephalic, atraumatic. Eyes: Pupils equal round and reactive to light, extra-ocular motions intact. Lids and lashes normal. Conjunctiva and sclera are non-icteric and not injected. Cornea within normal limits. Periorbital areas with no swelling, redness, or edema. Neck: Trachea midline, no thyromegaly or masses palpated, and no cervical lymphadenopathy. Supple, full range of motion without nuchal rigidity, or vertebral point tenderness. No Meningismus. Chest/axilla: Normal chest wall appearance and motion. Nontender with no deformity. No lesions are appreciated. 17:15 Neuro: Orientation: is normal, Mentation: is normal, Cranial nerves: is grossly normal based on the patient's age, no acute changes, Sensation: no obvious gross deficits. 19:49 ENT: Mouth: Lips: normal, Oral mucosa: normal, pink and intact, moist, Gums: normal cheri with healthy appearance, Tongue: is normal, Posterior pharynx: is normal, no acute changes. 19:49 Neck: ROM/movement: is normal, no acute changes, Meningeal signs: are not present, Kernig's sign is negative, Brudzinski's sign is negative, Lymph nodes: no appreciated lymphadenopathy. Vital Signs: 16:33 BP 88 / 68; Pulse 100; Resp 16; Temp 97.8; Pulse Ox 100% on R/A; Pain 4/10; hb 16:53 BP 118 / 61; Pulse 101; Pulse Ox 100% on R/A; ph 18:00 BP 117 / 53; Pulse 87; Resp 18; Pulse Ox 97% on R/A; zb 19:00 BP 136 / 60; Pulse 88; Resp 16; Pulse Ox 100% on R/A; jb4 20:00 BP 124 / 72; Pulse 80; Resp 16; Pulse Ox 98% on R/A; jb4 MDM: 17:15 Data reviewed: vital signs, nurses notes, lab test result(s), radiologic studies. kdr Counseling: I had a detailed discussion with the patient and/or guardian regarding: the historical points, exam findings, and any diagnostic results supporting the discharge/admit diagnosis, lab results, radiology results. 18:43 Patient medically screened. [facility] 19:53 Physician consultation: Toby Deleon MD and will see patient in office, no meds, didn't cheri wish patient to come to the er, will dc home after discussing all labs and ct findings, no meds per dr deleon's request. tomorrow. 06/29 17:14 Order name: CBC with Diff kdr 06/29 17:14 Order name: Chem 7; Complete Time: 19:23 kdr 06/29 17:14 Order name: ESR kdr 06/29 17:14 Order name: CRP; Complete Time: 19:23 [facility] 06/29 17:14 Order name: CT Head Brain wo Cont; Complete Time: 19:44 kdr 06/29 19:56 Order name: CBC Smear Scan EDMS 06/29 17:14 Order name: CT Facial Bones W/O Con; Complete Time: 19:44 kdr 06/29 17:14 Order name: CT Soft Tissue Neck W/contr; Complete Time: 19:44 kdr 06/29 19:47 Order name: PO challenge: juice; Complete Time: 20:07 cheri Administered Medications: 17:57 Drug: traMADol 25 mg Route: PO; zb 19:30 Follow up: Response: No adverse reaction; Pain is decreased jb4 20:07 Drug: Potassium Effervescent Tablet 25 mEq Route: PO; jb4 20:38 Follow up: Response: No adverse reaction jb4 20:28 Drug: traMADol 50 mg Route: PO; bb 20:28 Follow up: Response: Medication administered at discharge.; RASS: Alert and Calm (0) bb Disposition: 06/29/20 19:52 Discharged to Home. Impression: Atypical facial pain, Other chronic pain. - Condition is Stable. - Discharge Instructions: Chronic Pain. - Medication Reconciliation Form, Thank You Letter, Antibiotic Education, Prescription Opioid Use form. - Follow up: Toby Deleon MD; When: Tomorrow; Reason: Recheck today's complaints, Continuance of care, Re-evaluation by your physician. - Problem is new. - Symptoms have improved. Signatures: Dispatcher [employer] EDMS New Shen MD MD cha Rittger, Kevin, MD MD kdr Ballard, Brenda RN RN Natacha Loredo RN RN hb Bryson, James, RN RN jb4 Brown, Zipporah RN RN zb Corrections: (The following items were deleted from the chart) 20:39 19:52 06/29/2020 19:52 Discharged to Home. Impression: Atypical facial pain; Other jb4 chronic pain. Condition is Stable. Forms are Medication Reconciliation Form, Thank You Letter, Antibiotic Education, Prescription Opioid Use. Follow up: Toby Deleon; When: Tomorrow; Reason: Recheck today's complaints, Continuance of care, Re-evaluation by your physician. Problem is new. Symptoms have improved. cheri
--- NOTE | 2020-06-29 19:53 | ER ---
Nurse's Notes [facility] Name: Radha Ocampo Age: 79 yrs Sex: Female : 1940 Arrival Date: 06/29/2020 Time: 16:26 Bed 14 Private MD: Diagnosis: Atypical facial pain;Other chronic pain Presentation: 06/29 16:33 Chief complaint: Headache and right sided facial pain and swelling x 10 days, started hb on acyclovir and Lyrica 1 week ago. Pt reports mild relief from the Lyrica, ice packs help the best. Coronavirus screen: At this time, the client does not indicate any symptoms associated with coronavirus-19. Ebola Screen: No symptoms or risks identified at this time. Initial Sepsis Screen: Does the patient meet any 2 criteria? Systolic BP < 90 mmHg. HR > 90 bpm. Yes Does the patient have a suspected source of infection? No. Patient's initial sepsis screen is negative. Risk Assessment: Do you want to hurt yourself or someone else? Patient reports no desire to harm self or others. Onset of symptoms was June 19, 2020. 16:33 Method Of Arrival: Wheelchair hb 16:33 Acuity: CIARA 2 hb Triage Assessment: 18:00 General: Appears in no apparent distress. uncomfortable. Pain: Pain currently is 4 out zb of 10 on a pain scale. Quality of pain is described as Also complains of no other associated symptoms. Historical: - Allergies: 16:36 meperidine HCl (rash); hb 16:36 Morphine; hb - PMHx: 16:36 Depression; Giant Cell Arthritis; Myocardial infarction; renal cell carcinoma; hb Hyperlipidemia; ADD/ADHD; DM chemical induced; renal cell carcinoma contained; giant cell arteritis; Hypertension; Hypothyroidism; stage 3 kidney failure; - PSHx: 16:36 abdominal diverticuli with abscess; hb - Immunization history:: Adult Immunizations up to date. - Social history:: Smoking status: Patient denies any tobacco usage or history of. Screenin:20 Abuse screen: Denies threats or abuse. Denies injuries from another. Nutritional zb screening: No deficits noted. Tuberculosis screening: No symptoms or risk factors identified. Fall Risk No fall in past 12 months (0 pts). No secondary diagnosis (0 pts). IV access (20 points). Ambulatory Aid- None/Bed Rest/Nurse Assist (0 pts). Gait- Normal/Bed Rest/Wheelchair (0 pts) Mental Status- Oriented to own ability (0 pts). Total [place] Fall Scale indicates No Risk (0-24 pts). Assessment: 17:00 General: Appears in no apparent distress. Behavior is calm, cooperative, appropriate zb for age. Pain: Complains of pain in right cheek, right ear, right amish and right jaw Quality of pain is described as burning, numbing. Pain: Complains of pain in left parietal area, right parietal area, left frontal area and right frontal area. Neuro: Level of Consciousness is awake, alert, obeys commands, Oriented to person, place, time. Cardiovascular: Capillary refill < 3 seconds in bilateral fingers. Respiratory: Airway is patent Trachea midline Respiratory effort is even, unlabored. GI: Abdomen is round. : No signs and/or symptoms were reported regarding the genitourinary system. EENT: No signs and/or symptoms were reported regarding the EENT system. Derm: Skin is intact, is healthy with good turgor, Skin is redness noted to right cheek and jaw area. Musculoskeletal: Capillary refill < 3 seconds, in bilateral fingers. 18:00 Reassessment: Patient appears in no apparent distress at this time. Patient and/or zb family updated on plan of care and expected duration. Pain level reassessed. Patient is alert, oriented x 3, equal unlabored respirations, skin warm/dry/pink. pt able to ambulated to the restroom. 19:10 Reassessment: Patient appears in no apparent distress at this time. Patient and/or jb4 family updated on plan of care and expected duration. Pain level reassessed. Patient is alert, oriented x 3, equal unlabored respirations, skin warm/dry/pink. PT to CT. 20:37 Reassessment: Patient appears in no apparent distress at this time. Patient and/or jb4 family updated on plan of care and expected duration. Pain level reassessed. Patient is alert, oriented x 3, equal unlabored respirations, skin warm/dry/pink. Vital Signs: 16:33 BP 88 / 68; Pulse 100; Resp 16; Temp 97.8; Pulse Ox 100% on R/A; Pain 4/10; hb 16:53 BP 118 / 61; Pulse 101; Pulse Ox 100% on R/A; ph 18:00 BP 117 / 53; Pulse 87; Resp 18; Pulse Ox 97% on R/A; zb 19:00 BP 136 / 60; Pulse 88; Resp 16; Pulse Ox 100% on R/A; jb4 20:00 BP 124 / 72; Pulse 80; Resp 16; Pulse Ox 98% on R/A; jb4 ED Course: 16:26 Patient arrived in ED. ds1 16:35 Triage completed. hb 16:36 Arm band placed on. hb 16:46 Paula Santana RN is Primary Nurse. zb 16:58 Robbie Birch MD is Attending Physician. kdr 17:00 Patient has correct armband on for positive identification. Placed in gown. Bed in low zb position. Call light in reach. Side rails up X 1. court recording monitor on. Pulse ox on. NIBP on. 17:40 No provider procedures requiring assistance completed. Inserted saline lock: 22 gauge zb in left antecubital area, using aseptic technique. 18:43 Attending Physician role handed off by Robbie Birch MD cheri 18:43 New Shen MD is Attending Physician. cheri 19:24 CT Head Brain wo Cont In Process Unspecified. EDMS 19:24 CT Facial Bones W/O Con In Process Unspecified. EDMS 19:24 CT Soft Tissue Neck W/contr In Process Unspecified. EDMS 19:45 Primary Nurse role handed off by Paula Santana RN jb4 19:45 Mak Vickers RN is Primary Nurse. jb4 19:51 Toby Parks MD is Referral Physician. cheri 20:38 IV discontinued, intact, bleeding controlled, No redness/swelling at site. Pressure jb4 dressing applied. Administered Medications: 17:57 Drug: traMADol 25 mg Route: PO; zb 19:30 Follow up: Response: No adverse reaction; Pain is decreased jb4 20:07 Drug: Potassium Effervescent Tablet 25 mEq Route: PO; jb4 20:38 Follow up: Response: No adverse reaction jb4 20:28 Drug: traMADol 50 mg Route: PO; bb 20:28 Follow up: Response: Medication administered at discharge.; RASS: Alert and Calm (0) bb Outcome: 19:52 Discharge ordered by MD. cheri 20:38 Discharged to home via wheelchair, with family. jb4 20:38 Condition: stable 20:38 Discharge instructions given to patient, Instructed on discharge instructions, follow up and referral plans. Demonstrated understanding of instructions, follow-up care. 20:39 Patient left the ED. jb4 Signatures: Dispatcher [employer] EDAR New Shen MD MD cha Rittger, Kevin, MD MD kdr Sanford, Marisel ds1 Shandra Begum RN RN Radha Olsen RN RN Natacha Swenson, Mak Chauhan RN, RN RN jb4 Paula Santana RN RN zb
[2020-06-29 19:56] LABS: Anisocytosis 1+; Blood Morphology Comment NOTED (NOT SEEN); Platelet Estimate ADEQ; White Blood Cell Scan OK (OK)
[2020-06-29] MEDS ORDERED: POTASSIUM 25 MEQ EFFERV TAB ONE (20:11)
[2020-06-29 22:40] VITALS: TEMP 97.8
[2020-06-29 22:46] VITALS: BP 124/72; O2SAT 98
== END 2020-06-29 20:39 | disposition home or self-care (01) ==
LOC: ER 16:25
DX: G89.29 Other chronic pain (principal); I12.9 Hypertensive chronic kidney disease with stage 1 through stage 4 chronic kidney disease, or unspecified chronic kidney disease; E13.22 Other specified diabetes mellitus with diabetic chronic kidney disease; N18.30 Chronic kidney disease, stage 3 unspecified; Z85.53 Personal history of malignant neoplasm of renal pelvis; Z88.5 Allergy status to narcotic agent; Z88.8 Allergy status to other drugs, medicaments and biological substances
CPT/HCPCS: 85025; 80048; 36415; 85652; 86140; 70450; 70486; 70491; 76377; 99284; Q9967

== ENCOUNTER 2020-09-10 18:52 | Emergency (ER) | payer OTHER ==
--- OUTSIDE RECORDS SUMMARY | 2020-09-10 18:56 | XMS REPORT | Clinical Summary ---
:1940 Author Organization [facility] Address [address] [place] [address] Care Team Providers Name Role Phone Unavailable [...] care by specialist 05/02/2020 Hospital Encounter Cardiology Ronen, Colitis; Juan A Padilla MD Diverticulitis of [...] syndrome (HCC); Immunosuppresse d status (HCC) after 09/10/2019 Family History Medical History Relation Name Comments [...] 65+ YRS (1 of 1 - 2006 [id number]) Medicare IPPE (WELCOME TO MEDICARE) 07/18/2019 [...] 378 ms QTC Calculation(Bazett) 425 ms P [place] 19 degrees R [place] -1 degrees [place] 32 degrees Sinus rhythm with marked sin [...] 442 ms QTC Calculation(Bazett) 419 ms P [place] 35 degrees R [place] 7 degrees [place] 69 degrees Sinus bradycardia Otherwise normal ECG [...] i n the results section . after 09/10/2019 Results EKG-SCANNED (05/17/2020 11:50 AM CDT)Only the [...] 145 (H)Comment: : 70 - 110 mg/dL [facility] AT [address], [address]: Key Worker/Technici an ID = [id number] for PREET RUDDY Specimen Blood Performing Organization Address City/State/Zipcode Phone Number [address] [address] CENTER CBC (Hemogram only) (05/15/2020 4:30 AM CDT) Pathologist Sig nature WBC 6.7 3.5 - 10.5 K/L [facility] RBC 4.09 3.93 - 5.22 M/L [facility] Hemoglobin 12.3 11.2 - 15.7 GM/DL [facility] Hematocrit 38.2 34.1 - 44.9 % [facility] MCV 93.4 79.4 - 94.8 fL [facility] MCH 30.1 25.6 - 32.2 pg [facility] MCHC 32.2 32.2 - 35.5 GM/DL [facility] RDW 16.8 (H) 11.7 - 14.4 % [facility] Platelets 99 (L) 150 - 450 K/CU MM [facility] MPV 10.1 9.4 - 12.3 fL [facility] nRBC 0 0 - 0 /100 WBC [facility] Specimen Blood Performing Organization Address City/State/Zipcode Phone Number [facility] [address] [place] [address] CENTER Basic metabolic panel (05/15/2020 4:30 AM CDT)Only the most recent of7 results within the time period is included. Sodium 140 136 - 145 meq/L [facility] Potassium 4.0Comment: Specimen 3.5 - 5.1 meq/L [facility] slightly hemolyzed [facility] Chloride 103 98 - 107 meq/L [facility] CO2 26 22 - 29 meq/L [facility] BUN 13 7 - 21 mg/dL [facility] Creatinine 0.75Comment: 0.57 - 1.25 [facility] Specimen slightly mg/dL [facility] hemolyzed [place] Glucose 120 (H) 70 - 105 mg/dL [facility] Calcium 8.2 (L) 8.4 - 10.2 [facility] mg/dL [facility] EGFR 75Comment: ESTIMATED mL/min/1.[address] [facility] GFR IS NOT m [facility] ACCURATE CENTER CREATININE CLEARANCE IN PREDICTING GLOMERULAR FILTRATION RATE. ESTIMATED GFR IS NOT APPLICABLE FOR DIALYSIS PATIENTS. Specimen Blood Narrative Performed At Key Worker TIARA Quick [facility] Specimen slightly icteric Performing Organization Address City/State/Zipcode Phone Number [facility] [address] [place] [address] CENTER Hemoglobin and hematocrit (05/14/2020 4:32 PM CDT)Only the most recent of2 resultswithin the time period is included. Pathologist Sig nature Hemoglobin 12.1 11.2 - 15.7 GM/DL [facility] Hematocrit 36.7 34.1 - 44.9 % [facility] Specimen Blood Narrative Performed At Key Worker ID - [id number] [facility] Performing Organization Address City/[facility]/Zipcode Phone Number [facility] [address] [place] [address] CENTER SARS-CoV2/RT-PCR (Asymptomatic ONLY) (05/14/2020 12:28 PM CDT)Only the most recent of2 resultswithin the time period is included. SARS-COV2/RT-PCR Negative Not Detected, [facility] Negative, See [facility] external report CENTER for linked test SARS-COV-[address] [facility] [address] [facility] PERFORMING LAB [facility] Specimen Other - Nasopharyngeal wall structure (b nemo structure) Narrative Performed At Negative result for this test determines that [facility] SARS-CoV-2 RNA was not present in the [...] the Act. Fact Sheet for Healthcare Providers: https://www.Chippmunk/sites/default/files/pro duct/documents/Fact_Sheet_HC_Providers_Lyra_SA RS-CoV-2.pdf Fact Sheet for Healthcare Patients: https://www.Chippmunk/sites/default/files/pro duct/documents/Fact_Sheet_Patients_Lyra_SARS-C oV-2.pdf Performing Laboratory: [address] [place] [address] Performing Organization Address City/[facility]/Zipcode Phone Number [address] [address] [place] Hemoglobin A1c (05/14/2020 8:28 AM CDT)Only the most recent of3 resultswithin the time period is included. Pathologist Sig nature Hemoglobin A1C 8.4 (H) 4.3 - 6.1 % [facility] Specimen Blood Performing Organization Address [facility] Phone Number [address] [address] [place] ECG 12 lead (05/06/2020 1:39 PM CDT)Only the most recent of2 resultswithin the time period is included. Specimen Narrative Performed At Ventricular Rate 76 BPM GE MUSE Atrial Rate 76 BPM P-R Interval 154 ms QRS Duration 84 ms Q-T Interval 378 ms QTC Calculation(Bazett) 425 ms P [place] 19 degrees R [place] -1 degrees [place] 32 degrees Sinus rhythm with marked sinus [...] 378 ms QTC Calculation(Bazett) 425 ms P [place] 19 degrees R [place] -1 degrees [place] 32 degrees Sinus rhythm with marked sinus [...] Potassium 4.9Comment: Specimen 3.5 - 5.1 meq/L [facility] slightly hemolyzed [facility] Specimen Blood Narrative Performed At Key Worker ID - EVELIA M [facility] Performing Organization Address City/[facility]/Zipcode Phone Number [facility] MED[facility] [address] [place] [address] CENTER Clostridium difficile GDH Toxin (05/03/2020 6:44 PM CDT) C. Difficle Toxin Negative Negative [facility] C. Difficile GDH Positive (A)Comment: Negative [facility] Antigen C. difficile present [facility] but toxin not MEDICAL CENTER detected. Indicates colonization with non-toxigenic strain or level of toxin below detectable levels. No need for enteric isolation. Treatment is rarely needed (only when strong clinical suspicion for Clostridium difficile infection) Specimen Stool - Feces (substance) Narrative Performed At Testing performed by [employer] [facility] Assay. For GDH, published sensitivity of the assay is 98.7% compared to cytotoxicity testing. For Toxin AB, published sensitivity is 87.8% and specificity 99.4% compared to cytotoxicity testing. Verification of kit performance was done by the [facility] Microbiology Lab prior to clinical use. Performing Organization Address City/State/Zipcode Phone Number [address] [address] [place] STOOL PATH CHARGE (05/03/2020 6:44 PM CDT) Pathologist Sig nature Pathogen exam charged Done [facility] Specimen Stool Performing Organization Address [facility]/Zipcode Phone Number [address] [address] [place] Shiga Toxin Screen (05/03/2020 6:44 PM CDT) Pathologist Sig nature Shiga toxin 1 Not detected Not detected [facility] Shiga toxin 2 Not detected Not detected [facility] Specimen Stool Performing Organization Address [facility] Centercode Phone Number [address] [address] [place] Ova and Parasite Examination (05/03/2020 6:44 PM CDT) O&P Direct Smear No ova or No ova or [facility] parasites seen parasites seen [facility] O&P Concentrate No ova or No ova or [facility] Smear parasites seen parasites seen [facility] O&P Trichrome Smear No ova or No ova or [facility] parasites seen parasites seen [facility] Specimen Stool Narrative Performed At This result has an attachment that is no t available. Performing Organization Address [facility]/Zipcode Phone Number [address] [address] [place] Fecal leukocytes (05/03/2020 6:44 PM CDT) Fecal Leukocytes No fecal No fecal [facility] leukocytes seen leukocytes seen [facility] Specimen Stool Performing Organization Address [facility]/Zipcode Phone Number [address] [address] CENTER Stool culture + Shiga toxin (05/03/2020 6:44 PM CDT) Pathologist Sig nature Result No Salmonella, Shigella [facility] or Campylobacter [facility] isolated Specimen Stool Performing Organization Address City/State/Zipcode Phone Number [facility] [address] [place] [address] CENTER CBC with platelet count + automated diff (05/03/2020 5:54 AM CDT)Only the most recent of8 resultswithin the time period is included. Pathologist Sig nature WBC 6.2 3.5 - 10.5 [facility] K/[facility] RBC 3.99 3.93 - 5.22 [facility] M/[facility] Hemoglobin 12.0 11.2 - 15.7 [facility]/DL [facility] Hematocrit 37.2 34.1 - 44.9 % [facility] MCV 93.2 79.4 - 94.8 fL [facility] MCH 30.1 25.6 - 32.2 pg [facility] MCHC 32.3 32.2 - 35.5 [facility] RDW 15.1 (H) 11.7 - 14.4 % [facility] Platelets 98 (L) 150 - 450 K/CU [facility] MPV 10.9 9.4 - 12.3 fL [facility] nRBC 0 0 - 0 /100 WBC [facility] % Neutros 72 % [facility] % Lymphs 17 % [facility] % Monos 10 % [facility] % Eos 1 % [facility] % Baso 0 % [facility] # Neutros 4.41 1.56 - 6.13 [facility] # Lymphs 1.02 (L) 1.18 - 3.74 [facility] K/L [facility] # Monos 0.60 (H) 0.24 - 0.36 [facility] K/L [facility] # Eos 0.07 0.04 - 0.36 [facility] K/L [facility] # Baso 0.01 0.01 - 0.08 [facility] K/L [facility] Immature 1 0 - 1 % [facility] Granulocytes-Relative [facility] Specimen Blood Performing Organization Address City/[facility]/Zipcode Phone Number [address] [address] [place] Blood Culture - Routine (Left Venipuncture) (05/03/2020 5:54 AM CDT)Only the most recent of4 resultswithin the time period is included. Pathologist Sig nature Result No growth in 5 days [facility] Specimen Blood - Entire left upper arm (body stru cture) Performing Organization Address [facility] Centercode Phone Number [address] [address] [place] Prothrombin time/INR (05/03/2020 5:54 AM CDT) Pathologist Sig nature Protime 14.7 (H) 11.9 - 14.2 seconds [facility] INR 1.18 <=5.90 [facility] Specimen Blood Narrative Performed At Effective 01/13/2019: PT Reference Range [facility] Change New: 11.9-14.2 Previous: 11.7-14.7 RECOMMENDED COUMADIN/WARFARIN INR THERAPY RANGES STANDARD DOSE: 2.0-3.0 Includes: PROPHYLAXIS for venous thrombosis, systemic embolization; TREATMENT for venous thrombosis and/or pulmonary embolus. HIGH RISK: Target INR is 2.5-3.5 for patients wiht mechanical heart valves. Performing Organization Address City/[facility]/Zipcode Phone Number [address] [address] CENTER Magnesium (05/03/2020 5:54 AM CDT)Only the most recent of4 resultswithin the time period is included. Pathologist Sig nature Magnesium 1.9 1.6 - 2.6 mg/dL [facility] Specimen Blood Narrative Performed At Key Worker ID - EVELIA Weiss [facility] Performing Organization Address [facility] Centercode Phone Number [facility] [address] [place] [address] CENTER Hepatic function panel (05/03/2020 5:54 AM CDT)Only the most recent of3 results within the time period is included. Pathologist Sig [facility] Protein, Total 4.5 (L) 6.0 - 8.3 gm/dL [facility] Albumin 3.0 (L) 3.5 - 5.0 g/dL [facility] Total Bilirubin 0.6 0.2 - 1.2 mg/dL [facility] Bilirubin, Direct 0.3 0.1 - 0.5 mg/dL [facility] Alkaline Phosphatase 48 40 - 150 U/L [facility] AST 40 (H) 5 - 34 U/L [facility] ALT 107 (H) 6 - 55 U/L [facility] Specimen Blood Narrative Performed At Key Worker ID - EVELIA Weiss [facility] Specimen slightly icteric Performing Organization Address City/[facility]/Zipcode Phone Number [facility] [address] [place] [address] CENTER Hepatitis panel, acute (04/24/2020 3:43 PM CDT) Pathologist Sig nature Hep A IgM Nonreactive Nonreactive [facility] Hep B C IgM Nonreactive Nonreactive [facility] Hepatitis C Ab Nonreactive Nonreactive [facility] HBsAg Screen Nonreactive Nonreactive [facility] Specimen Blood Narrative Performed At Key Worker ID - DB [facility] Performing Organization Address City/State/Zipcode Phone Number [facility] [address] [place] [address] CENTER Echo w contrast limited study (04/24/2020 2:37 PM CDT) Pathologist Sig nature Ejection Fraction [facility] ECHO HEARTLAB [facility]CK [facility] Specimen Narrative Performed At Transthoracic Echocardiography Report (T TE) [facility] ECHO HEARTLAB MKCKESSON [facility] Demographics Patient Name TUNDE WELLER Date of Study 04/24/2020 DARRION Gender Female Visit Number [id number] Race Unknown Room Number 1550 Number Date of 1940 Referring Tara Eagle MD Physician Age 79 year(s) Substance Abuse Specialist Peg joseph, RUST Interpreting Gabe Buckley MD Physician Procedure Type of Study TTE procedure:ECHO W/CONT LTD STUDY WO DOPP (Routine) Indications:Suspected cardiac source of emboli. Clinical History HGB 12.5 HCT 38.9 % RCC- S/P Resection 1996 DM HTN, HYPOTHYROIDISM Hx CAD-FL Contrast Medium: Bubble Study. Height: 60 inches [...] Study 04/24/2020 DARRION Gender Female Visit Number [id number] Race Unknown Room [facility] 1550 Number Date of 1940 Referri MD [place] an Age 79 year(s) Sonogra pher Peg Morales, RUST Interpr eting Gabe P. Navarijo, MD Physici an Procedure Type of Study TTE procedure:ECHO W/CONT LTD STUDY WO DOPP (Routine) Indications:Suspected cardiac source of emboli. Clinical History HGB 12.5 HCT 38.9 % RCC- S/P Resection 1996 DM HTN, HYPOTHYROIDISM Hx CAD-FL Contrast Medium: Bubble Study. Height: 60 inches [...] LVOT Area: 2.96 cm^2 Performing Organization Address City/[facility] Centercode Phone Number [facility] ECHO HEARTLAB MKCKESSON CPACS Lipid panel (04/24/2020 11:15 AM CDT) Pathologist Sig nature Triglycerides 225Comment: Specimen mg/dL [facility] slightly hemolyzed [facility] Cholesterol 241Comment: Specimen mg/dL [facility] hemolyzed [facility] HDL 60 mg/dL [facility] LDL Calculated 136 mg/dL [facility] Specimen Blood Narrative Performed At Triglyceride Reference Range: [facility] Low Risk <150 Borderline 150-199 High Risk 200-499 Very High Risk >=500 Cholesterol Reference Range: Low Risk <200 Borderline 200-239 High Risk >240 HDL Cholesterol Reference Range: Low Risk >=60 High Risk <40 LDL Cholesterol Reference Range: Optimal <100 Near Optimal 100-129 Borderline 130-159 High 160-189 Very High >=190 Key Worker ID - SUSI M Specimen moderately icteric Performing Organization Address City/State/Zipcode Phone Number [facility] [address] [place] [address] CENTER Comprehensive metabolic panel (04/24/2020 11:15 AM CDT)Only the most recent of7 resultswithin the time period is included. Protein, Total 5.6 (L)Comment: 6.0 - 8.3 [facility] Specimen slightly gm/dL [facility] Albumin 3.4 (L)Comment: 3.5 - 5.0 [facility] Specimen slightly g/dL [facility] Alkaline 79 40 - 150 U/L [facility] Phosphatase [facility] Total Bilirubin 0.8Comment: 0.2 - 1.2 [facility] Specimen slightly mg/dL [facility] Sodium 136 136 - 145 [facility] meq/L [facility] Potassium 4.5Comment: 3.5 - 5.1 [facility] Specimen slightly meq/L [facility] Chloride 100 98 - 107 [facility] meq/L [facility] CO2 31 (H) 22 - 29 meq/L [facility] BUN 24 (H) 7 - 21 mg/dL [facility] Creatinine 0.90Comment: 0.57 - 1.25 [facility] Specimen slightly mg/dL [facility] Glucose 336 (H) 70 - 105 [facility] mg/dL [facility] Calcium 8.9 8.4 - 10.2 [facility] mg/dL [facility] AST 45 (H)Comment: 5 - 34 U/L [facility] ALT 120 (H)Comment: 6 - 55 U/L [facility] EGFR 61Comment: mL/min/1.73 [facility] ESTIMATED GFR IS sq m [facility] NOT ACCURATE MEDICAL CENTER CREATININE CLEARANCE IN PREDICTING GLOMERULAR FILTRATION RATE. ESTIMATED GFR IS NOT APPLICABLE FOR DIALYSIS PATIENTS. Specimen Blood Narrative Performed At Key Worker ID - SUSI M [facility] Specimen moderately icteric Performing Organization Address City/State/Zipcode Phone Number [facility] [address] [place] [address] CENTER Vitamin B12 and Folate (04/24/2020 6:43 AM CDT) Pathologist Sig nature Vitamin B12 1,155 (H) 213 - 816 pg/mL [facility] Folate 8.50 >=7.00 ng/mL [facility] Specimen Blood Narrative Performed At Key Worker ID - AAJEWEL [facility] Performing Organization Address [facility] Centercode Phone Number [facility] [address] [place] [address] CENTER TSH/Free T4 If Indicated (04/24/2020 6:43 AM CDT) Pathologist Sig [facility] TSH 3.805 0.350 - 4.940 uIU/mL [facility] Specimen Blood Narrative Performed At Key Worker ID - PETERSON [facility] Performing Organization Address [facility] Centercode Phone Number [address] [address] CENTER Methylmalonic acid (04/24/2020 6:43 AM CDT) Methlymalonic 206 87 - 318 [facility] Acid,Ser Comment: nmol/L INC[facility] This test was developed and its analytical performance characteristics have been determined by [facility]. It has not been cleared or approved by FDA. This assay has been validated pursuant to the CLIA regulations and is used for clini last purposes. Specimen Blood Narrative Performed At Performing Lab [facility] te [address] [place] [address] Shannan Singletary MD, PhD, RICHI Performing Organization Address City/[facility] Centercode Phone [place] [address] INCORPORATED [address] [facility] Protein electrophoresis, serum (04/24/2020 6:43 AM CDT) Albumin Fraction 3.0 (L) 3.5 - 5.5 [facility] g/dL [facility] Alpha 1 Fraction 0.2 0.2 - 0.4 [facility] g/dL [facility] Alpha 2 Fraction 0.8 0.5 - 0.9 [facility] g/dL [facility] Beta Fraction 0.6 0.6 - 1.1 [facility] g/dL [facility] Gamma Globulin 0.4 (L) 0.7 - 1.7 [facility] Fraction g/dL [facility] Interpretation Pattern suggestive [facility] of mild acute [facility] inflammation [facility] coupled with urine protein loss and/or protein-losing enteropathy. No monoclonal bands detected. Pathologist: TEE Esparza MD (electronic [facility] signature) [facility] Protein, Total 5.0 (L) 6.0 - 8.3 [facility] gm/dL [facility] Specimen Blood Narrative Performed At Key Worker ID - EVELIA Weiss [facility] Performing Organization Address City/[facility]/Zipcode Phone Number [address] [address] CENTER Ferritin (04/24/2020 6:43 AM CDT) Pathologist Sig nature Ferritin 292.76 (H) 5.00 - 275.00 ng/mL [facility] Specimen Blood Narrative Performed At Key Worker ID - AAJEWEL [facility] Performing Organization Address City/[facility]/Zipcode Phone Number [address] [address] CENTER US abdomen limited (04/23/2020 8:40 PM CDT) Specimen Narrative Performed At FINAL REPORT [facility] U/S, ABDOMINAL, LIMITED CLINICAL HISTORY: elevated lfts [...] 3:25:58 Performing Organization Address City/State/Zipcode Phone Number depict MR brain without & with IV contrast (04/23/2020 4:50 PM CDT) Specimen Narrative Performed At FINAL REPORT depict MRI Brain with and without contrast CLINICAL [...] 2:52:33 Performing Organization Address City/State/Zipcode Phone Number [facility] CT brain without IV contrast (04/23/2020 9:17 AM CDT) Specimen Narrative Performed At FINAL REPORT [employer] CT, BRAIN, WITHOUT CONTRAST INDICATION: Unlisted Reason [...] Derick Rangel MD Report Verified Date/Time: 04/23/2020 10:32:40 Procedure [...] 0:32:40 Performing Organization Address City/State/Zipcode Phone Number depict 2D Echo W/O Doppler(No Doppler) (04/22/2020 10:03 AM CDT) Pathologist Sig nature Ejection Fraction [facility] ECHO HEART[facility] Specimen Narrative Performed At Transthoracic Echocardiography Report (T TE) [facility] ECHO HEARTLAB [facility] Demographics Patient Name TUNDE WELLER Date of Study 04/22/2020 DARRION Gender Female Visit Number [id number] Race Unknown Room Number 1550 Number Date of 1940 Referring [place] Physician Age 79 year(s) Substance Abuse Specialist Peg joseph, RUST It Auditor Shanthi Cornell Interpreting Gabe Buckley MD Physician Procedure Type of Study TTE procedure:ECHO2D MODE W/O DOPPLER (Routine) Indications:Heart murmur. Clinical History HGB 14.6 HCT 44.4 % DM Renal Cell Carcinoma-S/p resection 1996 HTN, HYPOTHYROIDISM Hx CAD-FL Height: 60 inches Weight: 58.97 kg (130 [...] Study 04/22/2020 DARRION Gender Female Visit Number [id number] Race Unknown Room [place] [address] Number Date of 1940 Referri nathan Monte [facility] Age 79 year(s) Sonogra pher Peg Morales, RUST It Auditor Shanthi Cornell Interpr eting Gabe Buckley MD Physici an Procedure Type of Study TTE procedure:ECHO2D MODE W/O DOPPLER (Routine) Indications:Heart murmur. Clinical History HGB 14.6 HCT 44.4 % DM Renal Cell Carcinoma-S/p resection 1996 HTN, HYPOTHYROIDISM Hx CAD-FL Height: 60 inches Weight: 58.97 kg (130 [...] T CI: 3.65 l/min/m^2 Performing Organization Address [facility] Cent[facility]ode Phone Number [facility] MKCKESSON CPACS Phosphorus (04/22/2020 5:22 AM CDT)Only the most recent of2 resultswithin the time period is included. Pathologist Sig nature Phosphorus 3.1 2.3 - 4.7 mg/dL [facility] Specimen Blood Narrative Performed At Key Worker TIARA Weiss [facility] Performing Organization Address City/[facility]/Zipcode Phone Number [facility] [address] [place] [address] CENTER Urinalysis w/Microscopic (04/21/2020 9:19 PM CDT) Color, UA Light Yellow [facility] Clarity, UA Clear [facility] Specific [place], 1.029 1.001 - 1.[address] [facility] pH, UA 6.0 5.0 - 8.0 [facility] Protein, UA Negative Negative [facility] Glucose, UA 30 mg/dL (A) Negative [facility] Ketones, UA Negative Negative [facility] Bilirubin, UA Negative Negative [facility] Blood, UA Negative Negative [facility] Nitrite, UA Negative Negative [facility] Leukocytes, UA Trace (A) Negative [facility] Urobilinogen, UA 0.2 0.2 - 1.0 mg/dL [facility] RBC, UA 1 /HPF [facility] WBC, UA 3 /HPF [facility] Squam Epithel, UA <1 /HPF [facility] Specimen Source [facility] Specimen Urine Narrative Performed At Key Worker ID - [[email or web address]] [facility] Key Worker ID - [email or web address] Performing Organization Address [facility] Centercode Phone Number [address] [address] [place] Anaerobic culture (03/31/2020 6:14 PM CDT) Pathologist Sig nature Result No anaerobes isolated [facility] Specimen Body Fluid - Abdominopelvic structure (b nemo structure) Performing Organization Address [facility]/Zipcode Phone Number [address] [address] [place] Fungus culture + smear (03/31/2020 6:14 PM CDT) Pathologist Sig nature Result 3+ Lorri albicans [facility] ([facility] Fungus Smear No fungi seen [facility] Specimen Body Fluid - Abdominopelvic structure (b nemo structure) Performing Organization Address City/State/Zipcode Phone Number [facility] [address] [place] [address] drainage abdominal (03/31/2020 6:12 PM CDT) Specimen Narrative Performed At FINAL REPORT depict PROCEDURE: CT, DRAINAGE, ABDOMINAL DOSE REDUCTION: The examination was perf ormed according to departmental dose-optimization program w hich includes automated exposure control, adjustment of the mA a nd/or kV according to patient size and/or use of iterative reconstruct ion technique. HISTORY: Diverticulitis with increasing size of abscess Key Worker: Bam Ko MD Moderate sedation: See nursing [...] dilated using serial dilators. Subsequently a 8 [place] all-purpose drainage catheter was advanced into the [...] Report Verified Date/Time: 04/01/2020 12:12:30 Reading Location: [address] Reading Room Procedure Note Interface, External Ris In - 04/01/2020 12:14 PM CDT FINAL REPORT PROCEDURE: CT, DRAINAGE, ABDOMINAL DOSE REDUCTION: The examination was perf ormed according to departmental dose-optimization program w hich includes automated exposure control, adjustment of the mA a nd/or kV according to patient size and/or use of iterative reconstruct ion technique. HISTORY: Diverticulitis with increasing size of abscess Key Worker: Bam Ko MD Moderate sedation: See nursing [...] dilated using serial dilators. Subsequently a 8 [place] all-purpose drainage catheter was advanced into the collectio n using CT guidance. Approximately 15 cc of thick purulent fl uid was obtained. Samples were submitted to microbiology [facility] testing. Catheter was anchored [...] Verified Date/Time: 04/01/2020 1 2:12:30 Reading Location: [address] Reading Room Performing Organization Address City/State/Zipcode Phone Number [facility] Wound culture + gram stain (03/31/2020 6:04 PM CDT) Result 2+ Lorri albicans [facility] ([facility] Result 2+ [address] [facility] oxytoca (A) [facility] Result 2+ [address] [facility] freundii () [facility] Gram Stain Result 4+ WBCs [facility] Gram Stain Result <1+ budding yeast [facility] Specimen Wound - Abdominopelvic structure (body s [...] Susceptible Performing Organization Address City/State/Zipcode Phone Number [place] [phone] [place] [address] CENTER PT/aPTT (03/31/2020 9:15 AM CDT) Pathologist Sig nature Protime 13.5 11.9 - 14.2 seconds [facility] INR 1.06 <=5.90 [facility] PTT 24.2 22.5 - 36.0 seconds [facility] Specimen Blood Narrative Performed At Effective 01/13/2019: PT Reference Range [facility] Change New: 11.9-14.2 Previous: 11.7-14.7 RECOMMENDED COUMADIN/WARFARIN INR THERAPY RANGES STANDARD DOSE: 2.0-3.0 Includes: PROPHYLAXIS for venous thrombosis, systemic embolization; TREATMENT for venous thrombosis and/or pulmonary embolus. HIGH RISK: Target INR is 2.5-3.5 for patients wiht mechanical heart valves. Performing Organization Address City/[facility]/Zipcode Phone Number [facility] [address] [place] [address] CENTER Lactic acid, venous (03/31/2020 9:15 AM CDT) Pathologist Sig nature Lactate, Venous 1.05 0.50 - 2.20 mmol/L [facility] Specimen Blood Narrative Performed At Key Worker TIARA - MICHELL Manuel [facility] Performing Organization Address City/State/Zipcode Phone Number [place] [phone] [place], [place] [id number] CENTER after 09/10/2019 Insurance Payer Benefit Plan / Subscriber ID Effective Dates Phone Addre ss Type Group [facility] UNITED MEDICARE [id number] 2019-Present MEDICARE M[place] CARE [address] [place] [id number] Advance Directives For more information, please contact: [phone] Code Status Date Activated Date Inactivated Comments [...]
--- OUTSIDE RECORDS SUMMARY | 2020-09-10 18:59 | XMS REPORT | Continuity of Care Document ---
:1940 Author Organization [facility] t Address [address] [place] [address] Dr. Benítez [address] [place] [address] Care Team Providers Name Role Phone Renetta [...] Effective Date Expiration Date Sour ce Number [facility] [id number] [facility] - MEDICARE MGD 00:00:00 - [facility] [id number] 020-Present Problems Condition Condition Condition Status Onset Resolution Last Treating Co mments Source Name Details Category Date Date Treatment Clinician Date Bright red Bright red Disease Active [facility] blood per blood per 9- [facility] - rectum rectum 00:00: Medical 00 [place] Colitis Colitis Disease Active [facility] - 00:[facility]: Medical 00 [place] Dehydratio Dehydratio Disease Active 2019-[address] n n 04-24 [facility] - 00:00: Medical 00 [place] Elevated Elevated Disease Active 2019- [facility] LFTs LFTs 04-24[facility] - 00:00: Medical 00 [place] Steroid-in Steroid-in Disease Active 2019- [facility] duced duced 04-24 [facility] - hyperglyce hyperglyce 00:00: Me dical claudia claudia 00 Center Meningioma Meningioma Disease Active [facility] 04[facility]24 [facility] - 00:00: Medical 00 [place] Renal cell Renal cell Disease Active 2019-[address] carcinoma carcinoma 04-21 [facility] - of right of right 00:00: Medica l kidney kidney 00 [place] Fatigue Fatigue Disease Active [facility] 04[facility] - 00:00: Medical 00 [place] Hypothyroi Hypothyroi Disease Active 2019-[address] dism dism 04-01 [facility] - 00:00: Medical [place] Diabetes Diabetes Disease Active 2019- [facility] mellitus mellitus 04-01 [facility] - 00:00: Medical 00 [place] Hypertensi Hypertensi Disease Active 2019-[address] on on 04-01 - 00:00: Medical 00 [place] 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 04-01 [facility] - 00:00: Medical 00 [place] Diverticul Diverticul Disease Active 2019-[address] itis of itis of 03-31kes - intestine intestine 00:00: Medi last with with 00 Center abscess abscess Allergies, Adverse Reactions, Alerts Allergy Allergy Status Severity Reaction(s) Onset Inactive Treating Comm ents Source Name Type Date Date Clinician Meperidi Propensi Active Other (See hallucina [facility] to Comments) 03-31 tion [facility] - adverse 00:00: Medical reaction 00 [place] s Morphine Propensi Active Rash 2019- [facility] ty to 8 [facility] - adverse 00:00: Medical reaction 00 [place] s Family History Family Member Diagnosis Comments Start Date Stop Date Source Natural brother Cancer [facility] Natural father Cancer [facility] Natural mother Diabetes [facility] Natural mother Heart disease [facility] Natural sister Breast cancer [facility] Natural sister Cancer [facility] Social History Social Habit Start Date Stop Date Quantity Comments [facility] l [place] [facility] B[facility] Medical Tony ter Sex Assigned At [facility] Tobacco use and 2020-04-21 2020-04-21 Never used [facility] - exposure 00:00:00 00:00:00 [facility] Alcohol intake 2020-04-21 2020-04-21 Current [facility] - 00:00:00 00:00:00 non-drinker of Medical Ce nter alcohol (finding) History SDOH 2020-04-21 2020-04-21 1 [facility] - Alcohol Frequency 00:00:00 00:00:00 [facility] Smoking Status Start Date Stop Date Source Never smoker [facility] M edical [place] Medications Ordered Filled Start Stop Current Ordering Indication Dosage Frequency Signature Comments Components Source Medication Medication Date Date Medication? Clinician (SIG) Name Name aspirin 81 2020-0 Yes 1{tbl} QD Take [address] MG EC 9-28 tablet by [facility] - tablet 21:06: mouth Medical 43 daily. [place] nitroglycer 2020-0 Yes 1{tbl} Place [address] in 9- tablet [facility] - (NITROSTAT) 21:06: under the [...] 43 as needed. Center ophthalmic emulsion alpha 2020-0 Yes 1{tbl} QD Take [address] lipoic acid 9-28 tablet by Vikram es - 600 mg Cap 21:06: mouth Medica l 43 daily. [place] calcium 2020-0 Yes 1{tbl} QD Take [address] carbonate-v 9-28 tablet by Vikram es - itamin D3 21:06: mouth Medical (CALCIUM- 43 daily. Center TAMIN D) 500 mg(1,250mg) -200 unit per tablet ciprofloxac 2019- No 500mg Take 1 CH [...] Medical tablet 34 :00 daily. Center tocilizumab 2019- No 1{dose} Inject [address] (ACTEMRA) 04-24 Dose [facility] - 162 mg/0.9 14:59: 00:00 subcutaneo Medical mL Syrg 34 :00 usly every Center 7 days Friday. insulin 2019- No QD Inject [facility] glargine 04-24 subcutaneo Luke [facility] - (LANTUS) 14:59: 00:00 usly Medical 100 unit/mL 34 :00 nightly Cente r injection Use as directed2- 5 units depending on blood sugar . insulin Yes 6U QD Inject [address] glargine 9-07 Units [facility] - (LANTUS) 00:00: subcutaneo Med ical 100 unit/mL 00 usly Center injection nightly Use as directed2- 5 units depending on blood sugar . needles, Yes 1 box by [facility] t insulin 04-24 Miscellane [facility] - disposable 00:00: ous route Me dical (INSULIN 00 4 (four) Center PEN times NEEDLES) daily Ndle before meals and nightly. rosuvastati 2020- No 10mg QD Take [address] n (CRESTOR) 04-24 tablet (10 L ukes - 10 MG 00:00: 23:59 mg total) Medica l tablet 00 :00 by mouth Center daily. insulin 0U Inject 0-[address] lispro 04-24 [...] total) by Center mouth nightly. pregabalin 2019- No 1{tbl} QD Take [address] (LYRICA) 50 04-21 tablet by Celina kes - MG capsule 18:58: 00:00 mouth Medic al 12 :00 daily. Center valACYclovi 2019- No 1{tbl} Take [address] r (VALTREX) 04-21 tablet by Celina kes - 500 MG 18:51: 00:00 mouth as Medica l tablet 50 :00 needed. [place] fluconazole 2019- No 400mg QD Take [address] (DIFLUCAN) 04-06 tablets [facility] - 200 MG 00:00: 23:59 (400 mg Medical tablet 00 :00 total) by Center mouth daily for 4 days. levoFLOXaci 2019- No 500mg Q24H Take [address] n 8-20 08-24 tablet [facility] - (LEVAQUIN) 00:00: 23:59 (500 mg Med ical 500 MG 00 :00 total) by Center tablet mouth daily for 4 days. metroNIDAZO 2019- No 500mg Take [address] LE (FLAGYL) 8-19 08-24 tablet [facility] - 500 MG 00:00: 23:59 (500 mg Medical tablet 00 :00 total) by Center mouth every 8 (eight) hours for 5 days. cranberry 2019- No 1{tbl} QD Take [address] fruit 8-14 08-14 tablet by [facility] - (CRANBERRY) 10:26: 00:00 mouth Medi last 450 mg Tab 05 :00 daily. [place] furosemide 2019- No 20mg Take [address] (LASIX) 20 6-17 -19 by mouth Luke s - MG tablet 00:00: 00:00 as needed. M edical 00 :00 [place] levothyroxi Yes 1{tbl} QD Take [address] ne 3-20 tablet by [facility]ukes - (SYNTHROID, 00:00: mouth Medic al LEVOTHROID) 00 daily. [place] 75 MCG tablet losartan Yes 1{tbl} QD Take 1 [facility] t (COZAAR) 3-20 tablet by [facility] - 100 MG 00:00: mouth Medical tablet 00 daily. [place] diltiazem Yes 1{tbl} QD Take 1 CH[facility] [...] Source Systolic blood 2020-05-15 19:29:00 105 mm[Hg] [facility] Diastolic blood 2020-05-15 19:29:00 64 mm[Hg] [facility] - pressure [facility] Heart rate 2020-05-15 19:29:00 112 /min [facility] Body temperature 2020-05-15 19:29:00 36.39 Dianna [facility] Respiratory rate 2020-05-15 19:29:00 18 /min [facility] Oxygen saturation in 2020-05-15 19:29:00 95 /min [facility] Arterial blood by Medical Ce nter Pulse oximetry Body height 2020-05-14 05:33:00 152.4 cm [facility] Body weight 2020-05-14 05:33:00 60.782 kg [facility] BMI 2020-05-14 05:33:00 26.17 kg/m2 [facility] Procedures Procedure Date / Time Performing Clinician Source Performed REPORT OF PROCEDURE - 2020-05-17 11:50:23 Provider, Default [facility] ENDOSCOPY SCAN [facility] RHYTHM STRIP - SCAN 2020-05-17 11:50:21 Provider, Default [facility] POCT-GLUCOSE METER 2020-05-15 11:55:00 Viviana Mccullough [facility] POCT-GLUCOSE METER 2020-05-15 07:45:00 Viviana Mccullough [facility] BASIC METABOLIC PANEL (7) 2020-05-15 04:30:00 Yoanna Lizama [facility] CBC (HEMOGRAM ONLY) 2020-05-15 04:30:00 Yoanna Lizama [facility] POCT-GLUCOSE METER 2020-05-14 21:48:00 Yoanna Lizama [facility] POCT-GLUCOSE METER 2020-05-14 21:07:00 Yoanna Lizama [facility] HEMOGLOBIN AND HEMATOCRIT 2020-05-14 16:32:00 Yoanna Lizama [facility] SARS-COV2/RT-PCR ([facility] & 2020-05-14 12:28:00 Yoanna Lizama CH, I [facility] HEMOGLOBIN AND HEMATOCRIT 2020-05-14 08:28:00 Yoanna Lizama [facility] HEMOGLOBIN A1C 2020-05-14 08:28:00 Kenyon Yoanna [facility] RHYTHM STRIP - SCAN 2020-05-10 10:00:20 Provider, Default [facility] REPORT OF PROCEDURE - 2020-05-10 10:00:18 Provider, Default [facility] ENDOSCOPY [facility] ECG 12-LEAD 2020-05-06 13:39:59 Unknown, Hl7 Doctor [facility] POCT-GLUCOSE METER 2020-05-06 12:38:00 Meño [facility] POCT-GLUCOSE METER 2020-05-06 07:48:00 Meño [facility] BASIC METABOLIC PANEL (7) 2020-05-06 04:04:00 Keaton Wilder i [facility] POCT-GLUCOSE METER 2020-05-05 22:10:00 Meño [facility] POCT-GLUCOSE METER 2020-05-05 17:35:00 Meño [facility] POCT-GLUCOSE METER 2020-05-05 12:00:00 Meño [facility] POCT-GLUCOSE METER 2020-05-05 08:36:00 Meño [facility] HEMOGLOBIN A1C 2020-05-05 06:09:00 Meño [facility] BASIC METABOLIC PANEL (7) 2020-05-05 06:09:00 Keaton Wilder i [facility] POCT-GLUCOSE METER 2020-05-04 22:28:00 Meño [facility] POCT-GLUCOSE METER 2020-05-04 17:33:00 Meño [facility] POCT-GLUCOSE METER 2020-05-04 11:48:00 Meño [facility] POTASSIUM 2020-05-04 09:37:00 [facility] POCT-[facility]SE METER 2020-05-04 07:53:00 Meño [facility] BASIC METABOLIC PANEL (7) 2020-05-04 05:08:00 Keaton Wilder bernice [facility] POCT-GLUCOSE METER 2020-05-03 22:02:00 Meño [facility] C. DIFFICILE GDH TOXIN 2020-05-03 18:44:[address] [facility] STOOL CULTURE + SHIGA 2020-05-03 18:44:00 Lay Lester [facility] FECAL LEUKOCYTES 2020-05-03 18:44:00 Lay Lester [facility] OVA AND PARASITE 2020-05-03 18:44:00 Lay Lester [facility] SHIGA TOXIN SCREEN 2020-05-03 18:44:00 Lay Lester [facility] STOOL PATH CHARGE 2020-05-03 18:44:00 Lay Lester [facility] POCT-GLUCOSE METER 2020-05-03 14:38:00 Meño [facility] BLOOD CULTURE 2020-05-03 05:54:00 Lay Lester [facility] BASIC METABOLIC PANEL (7) 2020-05-03 05:54:[address] [facility] HEPATIC FUNCTION PANEL 2020-05-03 05:54:[address] [facility] PROTHROMBIN TIME/INR 2020-05-03 05:54:[address] [facility] MAGNESIUM 2020-05-03 05:54:00 Lay Lester [facility] CBC W/PLT COUNT & AUTO 2020-05-03 05:54:00 Lay Lester [facility]FFERENTIAL [facility] RHY[facility]M [facility] - SCAN 2020-04-26 13:51:12 Esther Dickson [facility] POCT-GLUCOSE METER 2020-04-24 16:31:00 Tara Crawford [facility] HEPATITIS PANEL, ACUTE 2020-04-24 15:43:00 Tara Crawford [facility] ECHO W/ CONTRAST LIMITED 2020-04-24 14:37:21 Tara Crawford [facility] POCT-GLUCOSE METER 2020-04-24 12:25:00 Tara Crawford [facility] LIPID PANEL 2020-04-24 11:15:00 Tara Crawford [facility] COMPREHENSIVE METABOLIC 2020-04-24 11:15:00 Tara Crawford [facility] POCT-GLUCOSE METER 2020-04-24 07:59:00 Tara Crawford [facility] VITAMIN B12 AND FOLATE 2020-04-24 06:43:00 Tara Crawford [facility] METHYLMALONIC ACID 2020-04-24 06:43:00 Tara Crawford [facility] PROTEIN ELECTROPHORESIS, 2020-04-24 06:43:00 Tara Crawford [facility] FERRITIN 2020-04-24 06:43:00 Tara Crawford [facility] HEMOGLOBIN A1C 2020-04-24 06:43:00 Tara Crawford [facility] TSH/FREE T4 IF INDICATED 2020-04-24 06:43:00 Tara Crawford [facility] POCT-GLUCOSE METER 2020-04-23 23:06:00 Tara Crawford [facility] US ABDOMEN LIMITED 2020-04-23 20:40:00 Tara Crawford [facility] POCT-GLUCOSE METER 2020-04-23 17:29:00 Tara Crawford [facility] MR BRAIN WITH & WITHOUT 2020-04-23 16:50:00 Tara Crawford [facility] IV CONTRAST [facility] CT BRAIN WITHOUT IV 2020-04-23 09:17:00 Tara Crawford [facility] BASIC METABOLIC PANEL (7) 2020-04-23 04:02:00 Tara Crawford [facility] HEPATIC FUNCTION PANEL 2020-04-23 04:02:00 Tara Crawford [facility] CBC W/PLT COUNT & AUTO 2020-04-23 04:02:00 Tara Crawford [facility] POCT-GLUCOSE METER 2020-04-23 03:50:00 Tara Crawford [facility] POCT-GLUCOSE METER 2020-04-22 20:53:00 Tara Crawford [facility] POCT-GLUCOSE METER 2020-04-22 16:06:00 Tara Crawford [facility] POCT-GLUCOSE METER 2020-04-22 12:06:00 Tara Crawford [facility] 2D ECHO MODE W/O DOPPLER 2020-04-22 10:03:04 Tara Crawford [facility] POCT-GLUCOSE METER 2020-04-22 08:28:00 Tara Crawford [facility] BASIC METABOLIC PANEL (7) 2020-04-22 05:22:00 Tara Crawford [facility] HEPATIC FUNCTION PANEL 2020-04-22 05:22:00 Tara Crawford [facility] MAGNESIUM 2020-04-22 05:22:00 Tara Crawford [facility] PHOSPHORUS 2020-04-22 05:22:00 Tara Crawford [facility] CBC W/PLT COUNT & AUTO 2020-04-22 05:22:00 Tara Crawford [facility] SARS-COV2/RT-PCR ([facility] & 2020-04-22 00:49:00 Tara Crawford [facility] - REF LABS) [facility] POCT-GLUCOSE METER 2020-04-21 23:29:00 Tara Crawford [facility] BLOOD CULTURE 2020-04-21 21:35:00 Tara Crawford [facility] URINALYSIS W/ MICROSCOPIC 2020-04-21 21:19:00 Tara Crawford [facility] I [facility] ECG 12-LEAD 2020-04-21 19:42:44 Unknown, Hl7 Doctor [facility] CBC W/PLT COUNT & AUTO 2020-04-05 06:24:00 AdriaRonald [facility] S t [facility] DIFFERENTIAL [facility] COMPREHENSIVE METABOLIC 2020-04-05 04:25:[address] [facility] [address] kes - PANEL [facility] COMPREHENSIVE METABOLIC 2020-04-04 04:01:00 Cristinojuana [facility] - PANEL [facility] METABOLIC 2020-04-03 04:04:00 [facility] - PANEL [facility] CBC W/PLT COUNT & AUTO 2020-04-03 04:04:[facility] St kes - DIFFERENTIAL [facility] COMPREHENSIVE METABOLIC 2020-04-02 04:31:00 [facility] PANEL [facility] CBC W/PLT COUNT & AUTO 2020-04-02 04:31:[facility] COMPREHENSIVE METABOLIC 2020-04-01 04:44:00 [facility] MAGNESIUM 2020-04-01 04:44:00 Cristinojuana [facility] s [facility] PHOSPHORUS 2020-04-01 04:44:00 [facility] CBC W/PLT COUNT & AUTO 2020-04-01 04:44:00 [facility] DIFFERENTIAL [facility] ANAEROBIC CULTURE 2020-03-31 18:14:00 Lamin [facility] FUNGUS CULTURE + SMEAR 2020-03-31 18:14:00 West, Natacha [facility] CT DRAINAGE ABDOMINAL 2020-03-31 18:12:[address] [facility] WOUND CULTURE + GRAM 2020-03-31 18:04:00 Gómez Lock [facility] PT/APTT 2020-03-31 09:15:00 Cristinojuanaadonay Britneydorys [facility] MAGNESIUM 2020-03-31 09:15:00 Cristinojuana [facility] LACTIC ACID, VENOUS 2020-03-31 09:15:[address] [facility] COMPREHENSIVE METABOLIC 2020-03-31 09:15:00 Cristinojuana Bannerdorys [facility] PANEL [facility] CBC W/PLT COUNT & AUTO 2020-03-31 09:15:00 [facility] DIFFERENTIAL [facility] Plan of Care Planned Activity Planned Date Details Comments Source Future Scheduled 2021-01-20 [facility]00 protein (procedure) [facility] [code = 109856157] Future Scheduled 2020-11-[address] [facility] - Test 00:00:00 measurement Medical Center (procedure) [code = 19864941] Future Scheduled 2020-04-18 INFLUENZA VACCINE (#1) [facility] - Test 00:00:00 [code = INFLUENZA Medical Ce nter VACCINE (#1)] Future Scheduled 2019-07-18 Medicare IPPE (WELCOME [facility] - Test 00:00:00 TO MEDICARE) [code = Medical Center Medicare IPPE (WELCOME TO MEDICARE)] Future Scheduled 2006 PNEUMOCOCCAL 65+ YRS [facility] - Test 00:00:00 (1 of 1 - Medical Center [id number] PCV13) [code = PNEUMOCOCCAL 65+ YRS (1 of 1 - [id number] PCV13)] Future Scheduled 1950 DIABETIC EYE EXAM [facility] - Test 00:00:00 [code = DIABETIC EYE Medical Center EXAM] Future Scheduled [address] Vikram es - Test 00:00:00 [facility] (regime/therapy) [code = 445309086] Results Test Description Test Time Test Comments Results Result Comments Source POC-Glucose meter 2020-05-15 12:07:00 Test Item Value Reference Range Interpretation Comme nts POC-Glucose Meter (test code = 145 mg/dL 70-110 H : TESTED AT [facility] [address]) [facility], [address]: Electrical Development Engineer/Techni sebastian ID = [id number] for PREETJAYSON E Lab Interpretation (test code = Abnormal 46697-5) [facility] [id number] 12:07:00 Test Item Value Reference Range Interpretation Comments POC-GLUCOSE METER 145 mg/dL 70-110 H : TESTED A T [facility] [address] (BEAKER) (test code = BERTNE R [facility], 1538) [address]: Electrical Development Engineer/Techni sebastian ID = [id number] for ESHA CAO RUDDY SARS-CoV2/RT-PCR (Asymptomatic ONLY)2020-05-15 10:07:00 Test Item Value Reference Range Interpretation Comments SARS-COV2/RT-PCR Negative Not Detected, (test code = Negative, See 62007-0) external report for linked test SARS-COV-2 [facility] ROLY PERFORMING LAB (test code = 97153-3) ANGELA (test code = Negative result for [...] of the Act. Fact Sheet for Healthcare Providers:https://www.Pixowl/sites/default/f adrian/product/documents/F act_Sheet_HC_Providers_L kfz_MALZ-RgH-7.pdf Fact Sheet for Healthcare Patients:https://www.D[employer]/sites/default/fi les/product/documents/Fa ct_Sheet_Patients_Lyra_S ARS-CoV-2.pdf Performing Laboratory:[place] [address] [address]-COV2/RT-PCR ([facility] & REF LABS)2020-05-15 10:07:00 Test Item Value Reference Range Interpretation Comments SARS-COV2/RT-PCR (test Negative Not Detected, Negative, code = 5226786) See external report for linked test SARS-COV-[address] [facility] ROLY (test code = 4945002) Negative result for this test determines that [...] 564(g) of the Act.Fact Sheet for Healthcare Providers:https://www.OnlineSheetMusic/sites/default/files/product/documents/Fact_Shee m_ZX_Dsalzofra_Jquf_TXNB-CnM-8.pdfFact Sheet for Healthcare Patients:https://www.OnlineSheetMusic/sites/default/files/product/ documents/Ujxj_Tldgv_Eaffzmxh_Bdwt_WCPI-JyS-8.pdfPerforming Laboratory:[facility], [place] [address]MMRQ-JIAZWHC METER 2020-05-15 07:57:00 Test Item Value Reference Range Interpretation Comments POC-GLUCOSE METER 145 mg/dL 70-110 H : TESTED Adonay Martinez [facility] [address] ([place]) (test code = JEANE Noriega [facility], 1538) [address]: Electrical Development Engineer/Techni sebastian ID = [id number] for ESHA CAO RUDDY Basic metabolic [id number] 06:06:00 Test Item Value Reference Range Interpretation Comments Sodium (test code = 140 meq/L 373-710 4857-2) Potassium (test code 4.0 meq/L 3.5-5.1 Specime n slightly = 2823-3) hemolyzed Chloride (test code = 103 meq/L 98-107 2074-0) CO2 (test code = 26 meq/L 22-29 2027-9) BUN (test code = 13 mg/dL 7-21 3094-0) Creatinine (test code 0.75 mg/dL 0.57-1.25 Specim en slightly = 2160-0) hemolyzed Glucose (test code = 120 mg/dL 70-105 H 2345-7) Calcium (test code = 8.2 mg/dL 8.4-10.2 L 15804-4) EGFR (test code = 75 mL/min/1.73 [place] [address]-2) NOT ACCURATE CREATININE CLEARANCE IN PREDICTING GLOMERULAR FILTRATION RATE . ESTIMATED GFR I S NOT APPLICABLE FOR DIALYSIS PATIENTS. ANGELA (test code = ANGELA) Electrical Development Engineer ID - NEFTALY PERRIpecimen slightly icteric Lab Interpretation Abnormal (test code = 11988-7) [facility] METABOLIC [id number] 06:06:00 Test Item Value Reference Range Interpretation [...] S NOT APPLICABLE FOR DIALYSIS PATIEN TS. Electrical Development Engineer ID - NEFTALY LSpecimen slightly ictericCBC (Hemogram only)2020-05-15 05:38:00 Test Item [...] K/CU MM L MPV (test code = 86772-4) 10.1 fL 9.4-12.3 nRBC (test code = 413) 0 0- 0 /100 WBC Lab Interpretation (test code = Abnormal 40655-4) [facility] (HEMOGRAM ONLY)2020-05-15 05:38:00 Test Item [...] WBC 0-0 (test code = 413) POCT-GLUCOSE [id number] 21:59:00 Test Item Value Reference Range Interpretation Comments POC-GLUCOSE METER 129 mg/dL 70-110 H : TESTED A T [facility] [address] (BEAKER) (test code = JEANE Noriega [place], 1538) [address]: Electrical Development Engineer/Techni sebastian ID = [id number] for THAD ENRIQUEZ POCT-GLUCOSE [id number] 21:20:00 Test Item Value Reference Range Interpretation Comments POC-GLUCOSE METER 68 mg/dL 70-110 L : TESTED A T [facility] [address] (BEAKER) (test code = JEANE Noriega [place], 1538) [address]: Electrical Development Engineer/Techni sebastian ID = [id number] for THAD ARROYO Hemoglobin and [id number] 16:58:00 Test Item Value Reference Range Interpretation Comments Hemoglobin (test code = 12.1 11.2- 15.7 GM/DL 786-4) Hematocrit (test code = 36.7 % 34.1-44.9 4544-3) ANGELA (test code = ANGELA) Electrical Development Engineer ID - [id number] Lab Interpretation (test Normal code = 65546-5) [facility] AND [id number] 16:58:00 Test Item Value Reference Range Interpretation Comments HEMOGLOBIN (BEAKER) (test code = 12.1 GM/DL 11.2-15.7 410) HEMATOCRIT (BEAKER) (test code = 36.7 % 34.1-44.9 411) Electrical Development Engineer ID - [id number] [id number] 10:03:00 Test Item Value Reference Range Interpretation Comments Hemoglobin A1C (test code = 4548-4) 8.4 % 4.3-6.1 H Lab Interpretation (test code = Abnormal 25717-4) [facility] [id number] 10:03:00 Test Item Value Reference Range Interpretation Comments HEMOGLOBIN A1C (BEAKER) (test code = 8.4 % 4.3-6.1 H 368) HEMOGLOBIN AND [id number] 09:18:00 Test Item Value Reference Range Interpretation Comments HEMOGLOBIN (BEAKER) (test code = 12.8 GM/DL 11.2-15.7 410) HEMATOCRIT (BEAKER) (test code = 38.7 % 34.1-44.9 411) Electrical Development Engineer ID - [id number] and Parasite Vspdvrpaijn2501-50-12 12:20:00 Test Item Value Reference Range Interpretation Comments O&P Direct Smear (test No ova or parasites No ova or code = 52251-3) seen parasites seen O&P Concentrate Smear No ova or parasites No ova or (test code = 90012-0) seen parasites seen O&P Trichrome Smear No ova or parasites No ova or (test code = 56276-6) seen parasites seen Lab Interpretation (test Normal code = 98096-4) [facility] PARASITE [id number] 12:20:00 Test Item Value Reference Range Interpretation [...] = No growth in 5 days 6463-4) [facility] [id number] 08:00:00 Test Item Value Reference Range Interpretation Comments CULTURE (BEAKER) (test No growth in 5 days code = 1095) BLOOD [id number] 08:00:00 Test Item Value Reference Range Interpretation Comments CULTURE (BEAKER) (test No growth in 5 days code = 1095) Stool culture + Shiga [id number] 11:02:00 Test Item Value Reference Range Interpretation Comments Result (test code = No Salmonella, Shigella or 6463-4) Campylobacter isolated [facility] SHIGA [id number] 11:02:00 Test Item Value Reference Range Interpretation Comments CULTURE (BEAKER) No Salmonella, Shigella (test code = 1095) or Campylobacter isolated ECG 12 [id number] 08:27:58Interface, External Ris In 05/07/2020 8:28 AM CDTVentricular Rate 76 BPMAtrial Rate 76 BPMP-R Interval 154 msQRS Duration 84 msQ-T Interval 378 msQTC Calculation(Bazett) 425 msP Marion 19 degreesR Marion -1 degreesT Marion 32 degreesSinus rhythm with marked sinus arrhythmiaCannot rule out Inferior infarct , age undeterminedAbnormal ECGWhen compared with ECG of 21-APR-2020 19:42,No significant change wasfoundConfirmed by Ankur Leyva ([id number]) on 05/07/2020 8:27:53 [facility] [id number] 12:51:00 Test Item Value Reference Range Interpretation Comments POC-GLUCOSE METER 255 mg/dL 70-110 H : Notified RN/MD: (BEAKER) (test code = TESTED AT [facility] 6720 1538) [facility], [address]: Electrical Development Engineer/Techni sebastian ID = [id number] for AN KAITLIN POLLARD POCT-GLUCOSE [id number] 08:22:00 Test Item Value Reference Range Interpretation Comments POC-GLUCOSE METER 197 mg/dL 70-110 H : TESTED [facility] T [facility] 6720 (BEAKER) (test code = [facility], 1538) [address]: Electrical Development Engineer/Techni sebastian ID = [id number] for AN KAITLIN POLLARD BASIC METABOLIC [id number] 05:46:00 Test Item Value Reference Range Interpretation [...] S NOT APPLICABLE FOR DIALYSIS PATIEN TS. Electrical Development Engineer ID - EVELIA MSpecimen slightly ictericPOCT-GLUCOSE [id number] 22:22:00 Test Item Value Reference Range Interpretation Comments POC-GLUCOSE METER 323 mg/dL 70-110 H : TESTED A T [facility] 6720 (BEAKER) (test code = JEANE Noriega [facility], 1538) [address]: Electrical Development Engineer/Techni sebastian ID = [id number] for Tai Lara POCT-GLUCOSE [id number] 17:46:00 Test Item Value Reference Range Interpretation Comments POC-GLUCOSE METER 245 mg/dL 70-110 H : TESTED A T [facility] 6720 (BEAKER) (test code = JEANE Noriega [facility], 1538) [address]: Electrical Development Engineer/Techni sebastian ID = [id number] for TAYLOR KEANE POCT-GLUCOSE [id number] 12:12:00 Test Item Value Reference Range Interpretation Comments POC-GLUCOSE METER 317 mg/dL 70-110 H : TESTED A T [facility] 6720 (BEAKER) (test code = [facility] Leann [facility], 1538) [address]: Electrical Development Engineer/Techni sebastian ID = [id number] for TAYLOR KEANE Shiga Toxin [id number] 10:32:00 Test Item Value Reference Range Interpretation Comments Shiga toxin 1 (test code = Not detected Not detected 51218-7) Shiga toxin 2 (test code = Not detected Not detected 26980-9) Lab Interpretation (test code = Normal 75697-8) [facility] HospitalHIGA TOXIN [id number] 10:32:00 Test Item Value Reference Range Interpretation Comments SHIGA TOXIN 1 (BEAKER) (test Not detected Not detected code = 2177) SHIGA TOXIN 2 (BEAKER) (test Not detected Not detected code = 2179) STOOL PATH [id number] 10:15:00 Test Item Value Reference Range Interpretation Comments Pathogen exam charged (test code = Done 2381) [facility] [id number] 10:15:00 Test Item Value Reference Range Interpretation Comments PATHOGEN EXAM CHARGED (BEAKER) (test Done code = 2381) POCT-GLUCOSE [id number] 08:57:00 Test Item Value Reference Range Interpretation Comments POC-GLUCOSE METER 205 mg/dL 70-110 H : TESTED A T [facility] 6720 (BEAKER) (test code = [facility], 1538) [address]: Electrical Development Engineer/Techni sebastian ID = [id number] for TAYLOR KEANE HEMOGLOBIN [id number] 08:19:00 Test Item Value Reference Range Interpretation Comments HEMOGLOBIN A1C (BEAKER) (test code = 8.4 % 4.3-6.1 H 368) BASIC METABOLIC [id number] 07:56:00 Test Item Value Reference Range Interpretation [...] S NOT APPLICABLE FOR DIALYSIS PATIEN TS. Electrical Development Engineer ID - PIAYA LSpecimedorys slightly ictericPOCT-GLUCOSE [id number] 22:55:00 Test Item Value Reference Range Interpretation Comments POC-GLUCOSE METER 229 mg/dL 70-110 H : TESTED A T [facility] 6720 (BEAKER) (test code = [facility], 153) [address]: Electrical Development Engineer/Techni sebastian ID = [id number] for Karla Jackson POCT-GLUCOSE [id number] 17:45:00 Test Item Value Reference Range Interpretation Comments POC-GLUCOSE METER 306 mg/dL 70-110 H : TESTED A T [facility] 6720 (BEAKER) (test code = [facility], 1538) [address]: Electrical Development Engineer/Techni sebastian ID = [id number] for KARINE HOODIVANADI Maya POCT-GLUCOSE [id number] 11:59:00 Test Item Value Reference Range Interpretation Comments POC-GLUCOSE METER 150 mg/dL 70-110 H : TESTED A T [facility] 6720 (BEAKER) (test code = JEANE Noriega [facility], 1538) [address]: Electrical Development Engineer/Techni sebastian ID = [id number] for DI EPSTEIN [id number] 10:18:00 Test Item Value Reference Range Interpretation Comments Potassium (test code = 4.9 meq/L 3.5-5.1 Speci men 2823-3) slightly hemolyzed ANGELA (test code = ANGELA) Electrical Development Engineer ID - EVELIA M Lab Interpretation Normal (test code = 67762-4) [facility] CenterPOT[facility]SIUM2020-09-17 10:18:00 Test Item Value Reference Range Interpretation Comments POTASSIUM (BEAKER) 4.9 meq/L 3.5-5.1 Specimen slightly (test code = 379) hemolyzed Electrical Development Engineer ID - EVELIA MPOCT-GLUCOSE [id number] 08:04:00 Test Item Value Reference Range Interpretation Comments POC-GLUCOSE METER 156 mg/dL 70-110 H : TESTED A T [facility] 6720 (BEAKER) (test code = [facility] Leann [facility], 1538) [address]: Electrical Development Engineer/Techni sebastian ID = [id number] for DI EPSTEIN BASIC METABOLIC [id number] 05:51:00 Test Item Value Reference Range Interpretation [...] S NOT APPLICABLE FOR DIALYSIS PATIEN TS. Electrical Development Engineer ID - NEFTALY LSpecimen slightly ictericClostridium difficile GDH Toxin 2020-05-04 05:03:00 Test Item Value Reference Range Interpretation Comments C. Difficle Toxin Negative Negative (test code = 2317453477) C. Difficile GDH Positive Negative A C. difficil e Antigen (test code = present but toxin [id number]) not detected. Indicates colonization wi th non-toxigenic [...] performance was done by the [facility] prior to clinical use. Lab Interpretation Abnormal (test code = 53683-8) [facility] Sacramento[facility]. DIFFICILE GDH [id number] 05:03:00 Test Item Value Reference Range Interpretation Comments CDT TOXIN (test code Negative Negative = 9489632900) CDT GDH ANTIGEN Positive Negative A C. difficile present but (test code = toxin not detec dominic. 6722299059) Indicates colon ization with non-toxige faith strain [...] performance was done by the [facility] prior to clinical use.Fecal [id number] 00:34:00 Test Item Value Reference Range Interpretation Comments Fecal Leukocytes (test No fecal leukocytes No fecal leukocytes code = 18476-8) seen seen Lab Interpretation Normal (test code = 25273-3) [facility] SacramentoFECAL [id number] 00:34:00 Test Item Value Reference Range Interpretation Comments FECAL LEUKOCYTES No fecal leukocytes No fecal leukocytes (BEAKER) (test code = seen seen 992) POCT-GLUCOSE [id number] 22:14:00 Test Item Value Reference Range Interpretation Comments POC-GLUCOSE METER 224 mg/dL 70-110 H : TESTED A T [facility] 6720 (BEAKER) (test code = [facility] [place], 1538) [address]: Electrical Development Engineer/Techni sebastian ID = [id number] for SHAHZAD BRUCE POCT-GLUCOSE [id number] 14:51:00 Test Item Value Reference Range Interpretation Comments POC-GLUCOSE METER 120 mg/dL 70-110 H : TESTED A T [facility] 6720 (BEAKER) (test code = [facility] Ocision [facility], 1538) [address]: Electrical Development Engineer/Techni sebastian ID = [id number] for SA CADENAHEFrancesco MayaMIYA BASIC METABOLIC [id number] 11:35:00 Test Item Value Reference Range Interpretation [...] S NOT APPLICABLE FOR DIALYSIS PATIEN TS. Electrical Development Engineer ID - EVELIA MSpecimen slightly ictericHepatic function [id number] 11:32:00 Test Item Value Reference Range Interpretation Comments Protein, Total (test code 4.5 6.0- 8.3 gm/dL L = 2885-2) Albumin (test code = 3.0 g/dL 3.5-5 L 42595-9) Total Bilirubin (test 0.6 mg/dL 0.2-1.2 code = 1975-2) Bilirubin, Direct (test 0.3 mg/dL 0.1-0.5 code = 1968-7) Alkaline Phosphatase 48 U/L 40-150 (test code = 6768-6) AST (test code = 1920-8) 40 U/L 5-34 H ALT (test code = 1742-6) 107 U/L 6-55 H ANGELA (test code = ANGELA) Electrical Development Engineer ID - EVELIA Davilaecimen slightly icteric Lab Interpretation (test Abnormal code = 67770-7) [facility]2020-09-16 11:32:00 Test Item Value Reference Range Interpretation Comments Magnesium (test code = 1.9 mg/dL 1.6-2.6 57550-6) ANGELA (test code = ANGELA) Electrical Development Engineer ID Juan A ALTAMIRANO M Lab Interpretation (test Normal code = 56113-5) [facility]2020-09-16 11:32:00 Test Item Value Reference Range Interpretation Comments MAGNESIUM (BEAKER) (test code = 1.9 mg/dL 1.6-2.6 627) Electrical Development Engineer ID - EVELIA MHEPATIC FUNCTION [id number] 11:32:00 Test Item Value Reference Range Interpretation [...] code = 107 U/L 6-55 H 347) Electrical Development Engineer ID - EVELIA Davilaecimen slightly ictericProthrombin time/[id number] 07:18:00 Test Item Value Reference Range Interpretation [...] valves. Lab Interpretation Abnormal (test code = 21037-5) [facility] SacramentoPROTHROMBIN TIME/[id number] 07:18:00 Test Item Value Reference Range Interpretation [...] heart valves.CBC with platelet count + automated [id number] 07:11:00 Test Item Value Reference Range Interpretation [...] K/CU MM L MPV (test code = 32703-3) 10.9 fL 9.4-12.3 nRBC (test code = [...] 2801) Lab Interpretation (test code = Abnormal 57202-7) [facility] W/PLT COUNT & AUTO [id number] 07:11:00 Test Item Value Reference Range Interpretation [...] PERCENT (BEAKER) (test code = 2801) Methylmalonic [id number] 09:07:00 Test Item Value Reference Interpretation Comments Range Methlymalonic 206 nmol/L 87-318 This test was Acid,Ser (test developed and its code = 7085556) analytical p erformance characteristics havebeen determ ined by [facility] .It has not been cleare d or approved by FDA . This assay has been validatedpursua nt to the CLIA regula tions and is used for clinical purpos es. ANGELA (test code = Performing Lab ANGELA) E[facility] [address] [facility] [place] [address] eBrnice Singletary MD, PhD, RICHI [facility] SacramentoBLOOD [id number] 23:00:00 Test Item Value Reference Range Interpretation Comments CULTURE (BEAKER) (test No growth in 5 days code = 1095) BLOOD [id number] 23:00:00 Test Item Value Reference Range Interpretation Comments CULTURE (BEAKER) (test No growth in 5 days code = 1095) Protein electrophoresis, [id number] 13:55:00 Test Item Value Reference Range Interpretation [...] = 2660) ANGELA (test code = ANGELA) Electrical Development Engineer ID - EVELIA M Lab Interpretation (test Abnormal code = 29294-3) [facility] SacramentoPROTEIN ELECTROPHORESIS, [id number] 13:55:00 Test Item Value Reference Range Interpretation [...] and/or protein-losing enteropathy. No monoclonal bands detected. [id number] Yudith Emanuel MD (BEAKER) (test code = (electronic signature) 2616) PROTEIN TOTAL SERUM, 5.0 gm/dL 6.0-8.3 L SPEP (BEAKER) (test code = 2660) Electrical Development Engineer ID - EVELIA MHepatitis panel, [id number] 17:11:00 Test Item Value Reference Range Interpretation Comments Hep A IgM (test code = Nonreactive Nonreactive 69504-3) Hep B C IgM (test code = Nonreactive Nonreactive 47021-5) Hepatitis C Ab (test code = Nonreactive Nonreactive 54667-1) HBsAg Screen (test code = Nonreactive Nonreactive 5195-3) ANGELA (test code = ANGELA) Electrical Development Engineer ID - DB Lab Interpretation (test Normal code = 52112-3) [facility] SacramentoHEPATITIS PANEL, [id number] 17:11:00 Test Item Value Reference Range Interpretation Comments HEPATITIS A IGM ANTIBODY (BEAKER) Nonreactive Nonreactive (test code = 498) HEPATITIS B CORE IGM ANTIBODY Nonreactive Nonreactive (BEAKER) (test code = 645) HEPATITIS C ANTIBODY (BEAKER) Nonreactive Nonreactive (test code = 367) HEPATITIS B SURFACE ANTIGEN (2) Nonreactive Nonreactive (BEAKER) (test code = 2585) Electrical Development Engineer ID - DBPOCT-GLUCOSE [id number] 16:42:00 Test Item Value Reference Range Interpretation Comments POC-GLUCOSE METER 236 mg/dL 70-110 H : TESTED A T [facility] 6720 (BEAKER) (test code = JEANE Noriega [facility], 1538) [address]: Electrical Development Engineer/Techni sebastian ID = [id number] for Ne Giulia mckee Echo w contrast limited [id number] 16:31:12Ejection FractionSLEH ECHO HEARTLAB MKCKESSON CPACSInterface, External Ris In - 04/24/2020 4:31 PM C DTTransthoracic Echocardiography Report (TTE) Demographics Patient Name TUNDE WELLER Date of Study 04/24/2020 DARRION Gender Female Visit Number [id number] Race Unknown Room Number 1550 Number Date of 1940 Referring Tara Crawford MD Physician Age 79 year(s) 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 6720 ([place]) (test code = [facility] [place], 1538) [address]: Electrical Development Engineer/Techni sebastian ID = [id number] for Ne Giulia mckee HEMOGLOBIN [id number] 12:07:00 Test Item Value Reference Range Interpretation Comments HEMOGLOBIN A1C ([facility]) (test code = 8.0 % 4.3-6.1 H 368) Comprehensive metabolic [id number] 11:48:00 Test Item Value Reference Range Interpretation Comments Protein, Total (test 5.6 6.0- 8.3 gm/dL L Speci men code = 2885-2) slightly hemolyzed Albumin (test code = 3.4 g/dL 3.5-5 L [place] n 61959-4) slightly hemolyzed Alkaline Phosphatase 79 U/L 40-150 (test code = 6768-6) Total Bilirubin (test 0.8 mg/dL 0.2-1.2 Specim en code = 1975-2) slightly hemolyzed Sodium (test code = 136 meq/L 645-327 0819-2) Potassium (test code 4.5 meq/L 3.5-5.1 Specime n = 6043-3) slightly hemolyzed Chloride (test code = 100 meq/L 98-107 2074-0) CO2 (test code = 31 meq/L 22-29 H 2028-9) BUN (test code = 24 mg/dL 7-21 H 3094-0) Creatinine (test code 0.90 mg/dL 0.57-1.25 Specim en = 2160-0) slightly hemolyzed Glucose (test code = 336 mg/dL 70-105 H 2345-7) Calcium (test code = 8.9 mg/dL 8.4-10.2 36396-6) AST (test code = 45 U/L 5-34 H Specimen 1920-8) slightly hemolyzed ALT (test code = 120 U/L 6-55 H Specimen 1742-6) slightly hemolyzed EGFR (test code = 61 mL/min/1.73 [place] [address]-6) NOT ACCURATE CREATININE CLEARANCE IN PREDICTING GLOMERULAR FILTRATION RATE . ESTIMATED GFR I S NOT APPLICABLE FOR DIALYSIS PATIENTS. ANGELA (test code = ANGELA) Electrical Development Engineer ID - SUSI Davilaecimedorys moderately icteric Lab Interpretation Abnormal (test code = 80339-7) [facility] SacramentoLipid [id number] 11:48:00 Test Item Value Reference Range Interpretation Comments Triglycerides (test 225 mg/dL Specimen code = 2571-8) slightly hemolyzed Cholesterol (test 241 mg/dL Specimen code = 2093-3) slightly hemolyzed HDL (test code = 60 mg/dL 2084-9) LDL Calculated (test 136 mg/dL code = 87889-9) ANGELA (test code = Triglyceride ANGELA) Reference Range: Low Risk <150 Borderline 150-199 High Risk 200-499 Very High Risk >=500 Cholesterol Reference Range: Low Risk <200 Borderline 200-239 High Risk >240 HDL Cholesterol Reference Range: Low Risk >=60 High Risk <40 LDL Cholesterol Reference Range: Optimal <100 Near Optimal 100-129 Borderline 130-159 High 160-189 Very High >=190 Electrical Development Engineer ID - SUSI Davilaecprecious moderately icteric [facility] SacramentoCOMPREHENSIVE METABOLIC [id number] 11:48:00 Test Item Value Reference Range Interpretation [...] S NOT APPLICABLE FOR DIALYSIS PATIEN TS. Electrical Development Engineer ID - SUSI MSpecimen moderately ictericLIPID [id number] 11:48:00 Test Item Value Reference Range Interpretation [...] Borderline 130-159 High 160-189 Very High >=190 Electrical Development Engineer ID - SUSI MSpecimen moderately ictericTSH/Free T4 If [id number] 10:29:00 Test Item Value Reference Range Interpretation Comments TSH (test code = 3.805 0.350- 4.940 uIU/mL 94736-2) ANGELA (test code = ANGELA) Electrical Development Engineer ID - AAHAMID Lab Interpretation (test Normal code = 79162-5) [facility] SacramentoTSH/FREE T4 IF [id number] 10:29:00 Test Item Value Reference Range Interpretation Comments THYROID STIMULATING HORMONE 3.805 uIU/mL 0.350-4.940 (BEAKER) (test code = 772) Electrical Development Engineer ID - NRLVIXUJhfopfnx9525-98-70 09:30:00 Test Item Value Reference Range Interpretation Comments Ferritin (test code = 292.76 ng/mL 5-275 H 2276-4) ANGELA (test code = ANGELA) Electrical Development Engineer ID - AAHAMID Lab Interpretation (test Abnormal code = 01500-3) [facility] SacramentoVitamin B12 and [id number] 09:30:00 Test Item Value Reference Range Interpretation Comments Vitamin B12 (test code = 1155 pg/mL 213-816 H 2132-9) Folate (test code = 8.50 ng/mL >=7.00 2284-8) ANGELA (test code = ANGELA) Electrical Development Engineer ID - AAHAMID Lab Interpretation (test Abnormal code = 29579-4) [facility] SacramentoFERRITIN2020 09:30:00 Test Item Value Reference Range Interpretation Comments FERRITIN (BEAKER) (test code = 292.76 ng/mL 5.00-275.00 H 361) Electrical Development Engineer ID - AAHAMIDVITAMIN B12 AND [id number] 09:30:00 Test Item Value Reference Range Interpretation Comments VITAMIN B12 (BEAKER) (test code = 1155 pg/mL 213-816 H 774) FOLATE (BEAKER) (test code = 362) 8.50 ng/mL >=7.00 Electrical Development Engineer ID - AAHAMIDPOCT-GLUCOSE [id number] 08:10:00 Test Item Value Reference Range Interpretation Comments POC-GLUCOSE METER 197 mg/dL 70-110 H : TESTED Adonay Martinez [facility] 67[address] ([place]) (test code = [facility] [place], 1538) [address]: Electrical Development Engineer/Techni sebastian ID = [id number] for Giulia Wade MR, BRAIN, [id number] 02:52:00Unlisted Reason for Exam - Click Yes [...] 02:52:33 MR brain without & with IV [id number] 02:52:00Interface, External Ris In - 04/24/2020 2:54 [...] Rao Torre MDReport Verified Date/Time: 04/24/2020 02:52:33 [facility] 2020-04-23 23:25:00Abdomen limited [...] MDReport Verified Date/Time: 04/23/2020 23:25:58 US abdomen [id number] 23:25:00 Interface, External Ris In - 04/23/2020 [...] Signed: Rao Torre Verified Date/Time: 04/23/2020 23:25:58 [facility] [id number] 23:17:00 Test Item Value Reference Range Interpretation Comments POC-GLUCOSE METER 206 mg/dL 70-110 H : TEST[facility] (test [facility] = [facility], 1538) [address]: Electrical Development Engineer/Techni sebastian ID = [id number] for LAVONNE MUSTAFA POCT-GLUCOSE [id number] 17:40:00 Test Item Value Reference Range Interpretation Comments POC-GLUCOSE METER 249 mg/dL 70-110 H : Notified RN/MD: ([facility]) (test code = TESTED AT [facility] 67[address] 1538) [facility], [address]: Electrical Development Engineer/Techni sebastian ID = [id number] for Arleth oneilJazmin eddy CT, BRAIN, WITHOUT [id number] 10:32:00Unlisted Reason for Exam - Click Yes [...] recommended for further evaluation. Signed: Stephanie Rangel MDRthe hospital of [facility] [place] Verified Date/Time: 04/23/2020 10:32:40 CT brain without IV [id number] 10:32:00Interface, External Ris In - 04/23/2020 10:34 [...] Stephanie Rangel MDReport Verified Date/Time: 04/23/2020 10:32:40 [facility] W/PLT COUNT & AUTO DIFFERENTIAL 2020-04-23 [...] (BEAKER) (test code = 2801) BASIC METABOLIC [id number] 05:03:00 Test Item Value Reference Range Interpretation [...] S NOT APPLICABLE FOR DIALYSIS PATIEN TS. Electrical Development Engineer ID - EVELIA MSpecimen moderately ictericHEPATIC FUNCTION [id number] 05:03:00 Test Item Value Reference Range Interpretation [...] Specimen moderately (test code = 347) hemolyzed Electrical Development Engineer ID - EVELIA MSpecimen moderately ictericPOCT-GLUCOSE [id number] 04:01:00 Test Item Value Reference Range Interpretation Comments POC-GLUCOSE METER 193 mg/dL 70-110 H : TESTED A T [facility] 6720 (BEAKER) (test code [facility], = 1538) [address]: Electrical Development Engineer/Techni sebastian ID = [id number] for RUSSELL , ESME POCT-GLUCOSE [id number] 21:04:00 Test Item Value Reference Range Interpretation Comments POC-GLUCOSE METER 198 mg/dL 70-110 H : TESTED A T [facility] 6720 (BEAKER) (test code = 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 Grade 1 diastolic dysfunction (impaired relaxation and [...] CO: 5.65 l/min LVOT CI: 3.65 l/min/m^2[facility] CenterPOCT-GLUCOSE [id number] 16:17:00 Test Item Value Reference Range Interpretation Comments POC-GLUCOSE METER 266 mg/dL 70-110 H : TESTED [facility] T [facility] ([facility]) (test code = [facility] [place] 1538) [address]: Electrical Development Engineer/Techni sebastian ID = [id number] for BRUCE DUMNOT SARS-COV2/RT-PCR ([facility])2020-04-22 14:59:00 Test Item Value Reference Range Interpretation Comments SARS-COV2/RT-PCR (test Negative Not Detected, Negative, code = 7338860) See external report for linked test SARS-COV-[address] [facility] ROLY (test code = 9487970) Negative result for this test determines that [...] 564(g) of the Act.Fact Sheet for Healthcare Providers:https://www.[employer]Sheet[employer]/sites/default/files/product/documents/Fact_Shee z_SL_Ccwsxqity_Shur_MFND-OaE-3.pdfFact Sheet for Healthcare Patients:https://www.[employer]/sites/default/files/product/ documents/Zhio_Sjwtd_Hxfjgpjv_Poml_YVBC-SrH-5.pdfPerforming Laboratory:[facility], [place] [address]LZVP-UZQTDXV METER 2020-04-22 12:21:00 Test Item Value Reference Range Interpretation Comments POC-GLUCOSE METER 210 mg/dL 70-110 H : TESTED A T [facility] [address] (BEAKER) (test code = GELACIOKINSEY Noriega [facility], 1538) [address]: Electrical Development Engineer/Techni sebastian ID = [id number] for BRUCE DUMONT [id number] 11:00:00 Test Item Value Reference Range Interpretation Comments Phosphorus (test code = 3.1 mg/dL 2.3-4.7 2777-1) ANGELA (test code = ANGELA) Electrical Development Engineer ID Juan A ALTAMIRANO M Lab Interpretation (test Normal code = 10253-6) [facility] 11:00:00 Test Item Value Reference Range Interpretation Comments PHOSPHORUS (BEAKER) (test code = 3.1 mg/dL 2.3-4.7 604) Electrical Development Engineer TIARA ALTAMIRANO [id number] 11:00:00 Test Item Value Reference Range Interpretation Comments MAGNESIUM (BEAKER) (test code = 1.9 mg/dL 1.6-2.6 627) Electrical Development Engineer TIARA ALTAMIRANO MBASIC METABOLIC [id number] 11:00:00 Test Item Value Reference Range Interpretation [...] S NOT APPLICABLE FOR DIALYSIS PATIEN TS. Electrical Development Engineer TIARA ALTAMIRANO Giovanniecimen moderately ictericHEPATIC FUNCTION [id number] 11:00:00 Test Item Value Reference Range Interpretation [...] code = 112 U/L 6-55 H 347) Electrical Development Engineer TIARA ALTAMIRANO Giovanniecimen moderately ictericPOCT-GLUCOSE [id number] 08:40:00 Test Item Value Reference Range Interpretation Comments POC-GLUCOSE METER 187 mg/dL 70-110 H : TESTED Adonay Martinez [facility] (BEAKER) (test code = JEANE [place], 1538) [id number]: Electrical Development Engineer/Techni sebastian ID = [id number] for BRUCE DUMONT CBC W/PLT COUNT & AUTO [id number] 07:04:00 Test Item Value Reference Range Interpretation [...] PERCENT (BEAKER) (test code = 2801) POCT-GLUCOSE [id number] 23:41:00 Test Item Value Reference Range Interpretation Comments POC-GLUCOSE METER 211 mg/dL 70-110 H : TESTED A T [facility] (BEAKER) (test code = JEANE [place], 1538) [address]: Electrical Development Engineer/Techni sebastian ID = [id number] for SHABBIR BEAN Urinalysis [id number] 21:58:00 Test Item Value Reference Range Interpretation Comments Color, UA (test code = Light Yellow 5778-6) Clarity, UA (test code = Clear 5767-9) Specific [place], UA (test 1.029 1.001-1.035 code = 5811-5) pH, UA (test code = 6.0 5.0-8.0 5803-2) Protein, UA (test code = Negative Negative 47109-0) Glucose, UA (test code = 30 mg/dL Negative A 365) Ketones, UA (test code = Negative Negative 2514-8) Bilirubin, UA (test code = Negative Negative 12886-9) Blood, UA (test code = Negative Negative 59801-3) Nitrite, UA (test code = Negative Negative 5802-4) Leukocytes, UA (test code Trace Negative A = 5799-2) Urobilinogen, UA (test 0.2 mg/dL 0.2-1 code = 31485-8) RBC, UA (test code = 1 /HPF 43968-9) WBC, UA (test code = 3 /HPF 5821-4) Squam Epithel, UA (test <1 /HPF code = 49027-0) Specimen Source (test code = 2795) ANGELA (test code = ANGELA) Electrical Development Engineer ID - [auto]Electrical Development Engineer ID - steve Lab Interpretation (test Abnormal code = 06613-1) [facility]/ [id number] 21:58:00 Test Item Value Reference Range Interpretation [...] = 516) SOURCE(BEAKER) (test code = 2795) Electrical Development Engineer ID - [auto]Electrical Development Engineer ID - steveFungus culture + [id number] 18:07:00 Test Item Value Reference Range Interpretation Comments Result (test code = 3+ Lorri albicans A 6463-4) Fungus Smear (test code = No fungi seen 1406) Lab Interpretation (test Abnormal code = 27423-8) [facility] + [id number] 18:07:00 Test Item Value Reference Range Interpretation Comments CULTURE (BEAKER) A 3+ Lorri albicans (test code = 1095) FUNGUS SMEAR No fungi seen (BEAKER) (test code = 1406) Anaerobic [id number] 18:52:00 Test Item Value Reference Range Interpretation Comments Result (test code = No anaerobes isolated 6463-4) [facility] [id number] 18:52:00 Test Item Value Reference Range Interpretation Comments CULTURE (BEAKER) (test No anaerobes isolated code = 1095) CBC W/PLT COUNT & AUTO [id number] 06:39:00 Test Item Value Reference Range Interpretation [...] (BEAKER) (test code = 2801) COMPREHENSIVE METABOLIC [id number] 06:17:00 Test Item Value Reference Range Interpretation [...] S NOT APPLICABLE FOR DIALYSIS PATIEN TS. Electrical Development Engineer ID - EVELIA MCOMPREHENSIVE METABOLIC [id number] 05:24:00 Test Item Value Reference Range Interpretation [...] S NOT APPLICABLE FOR DIALYSIS PATIEN TS. Electrical Development Engineer ID - EDASIWOUND CULTURE + GRAM [id number] 10:29:00 Test Item Value Reference Range Interpretation [...] <1+ budding yeast (BEAKER) (test code = 954763) CBC W/PLT COUNT & AUTO [id number] 05:33:00 Test Item Value Reference Range Interpretation [...] (BEAKER) (test code = 2801) COMPREHENSIVE METABOLIC [id number] 05:08:00 Test Item Value Reference Range Interpretation [...] S NOT APPLICABLE FOR DIALYSIS PATIEN TS. Electrical Development Engineer ID - EDASISpecimen slightly ictericCOMPREHENSIVE METABOLIC PANEL [...] S NOT APPLICABLE FOR DIALYSIS PATIEN TS. Electrical Development Engineer ID - PIAYA LSpecimen slightly ictericCBC W/PLT COUNT & AUTO [id number] 05:03:00 Test Item Value Reference Range Interpretation [...] (BEAKER) (test code = 2801) CT, DRAINAGE, [id number] 12:12:00Reason for exam:->Diverticulitis with increasing size of abscessFINAL REPORT PROCEDURE: CT, DRAINAGE, ABDOMINAL DOSE REDUCTION: The examination was performed according to departmental dose-optimization program which includes automated exposure control, adjustment of the mA and/or kV according to patient size and/or use of iterative reconstruction technique. HISTORY: Diverticulitis with increasing size of abscess Electrical Development Engineer: Bam Ko MD Moderate sedation: See nursing [...] dilated using serial dilators. Subsequently a 8 Swedish all-purpose drainage catheter was advanced into the [...] Ko Verified Date/Time: 04/01/2020 12:12:30 Reading Location: [address] Transitional Reading Room CT drainage [id number] 12:12:00Interface, External Ris In - 04/01/2020 12:14 PM CDTFINAL REPORT PROCEDURE: CT, DRAINAGE, ABDOMINAL DOSE REDUCTION: The examination was performed according to departmental dose-optimization program which includes automated exposure control, adjustment of the mA and/or kV according to patient size and/or use of iterative reconstruction technique. HISTORY: Diverticulitis with increasing size of abscess Electrical Development Engineer: Bam Ko MD Moderate sedation: See nursing [...] dilated using serial dilators. Subsequently a 8 Swedish all-purpose drainage catheter was advanced into the [...] Ko Verified Date/Time: 04/01/2020 12:12:30 Reading Location: [facility] B1 C013T Transitional Reading Room Electronicallysigned by: BAM KO MD on 04/01/2020 12:12 [facility] W/PLT COUNT & AUTO [id number] 06:34:00 Test Item Value Reference Range Interpretation [...] 0-1 PERCENT (BEAKER) (test code = 2801) [id number] 06:33:00 Test Item Value Reference Range Interpretation Comments MAGNESIUM (BEAKER) 2.0 mg/dL 1.6-2.6 Specimen slightly (test code = 627) hemolyzed Electrical Development Engineer ID - EVELIA [id number] 06:33:00 Test Item Value Reference Range Interpretation Comments PHOSPHORUS (BEAKER) 2.0 mg/dL 2.3-4.7 L Specimen slightly (test code = 604) hemolyzed Electrical Development Engineer ID - EVELIA MCOMPREHENSIVE METABOLIC [id number] 06:33:00 Test Item Value Reference Range Interpretation [...] S NOT APPLICABLE FOR DIALYSIS PATIEN TS. Electrical Development Engineer ID - EVELIA MSpecimen slightly ictericCOMPREHENSIVE METABOLIC [...] S NOT APPLICABLE FOR DIALYSIS PATIEN TS. Electrical Development Engineer ID - MICHELL CSpecimen slightly [id number] 09:49:00 Test Item Value Reference Range Interpretation Comments MAGNESIUM (BEAKER) (test code = 2.1 mg/dL 1.6-2.6 627) Electrical Development Engineer ID - MICHELL CLactic acid, [id number] 09:45:00 Test Item Value Reference Range Interpretation Comments Lactate, Venous (test code 1.05 mmol/L 0.5-2.2 = 2872) ANGELA (test code = ANGELA) Electrical Development Engineer ID - MICHELL C Lab Interpretation (test Normal code = 32991-0) [facility], [id number] 09:45:00 Test Item Value Reference Range Interpretation Comments LACTATE BLOOD VENOUS (2) (BEAKER) 1.05 mmol/L 0.50-2.20 (test code = 2872) Electrical Development Engineer ID - MICHELL [id number] 09:35:00 Test Item Value Reference Range Interpretation Comments Protime (test code = 13.5 11.9- 14.2 5902-2) seconds INR (test code = 1.06 <=5.90 6301-6) PTT (test code = 24.2 22.5- 36.0 01983-9) seconds ANGELA (test code = ANGELA) Effective 01/13/2019: PT Reference Range ChangeNew: 11.9-14.2 Previous: 11.7-14.7 RECOMMENDED COUMADIN/WARFARIN INR THERAPY RANGESSTANDARD DOSE: 2.0-3.0 Includes: PROPHYLAXIS for venous thrombosis, systemic embolization; TREATMENT for venous thrombosis and/or pulmonary embolus.HIGH RISK: Target INR is 2.5-3.5 for patients wiht mechanical heart valves. Lab Interpretation Normal (test code = 67567-8) [facility] SacramentoPT/[id number] 09:35:00 Test Item Value Reference Range Interpretation [...] mechanical heart valves.CBC W/PLT COUNT & AUTO [id number] 09:26:00 Test Item Value Reference Range Interpretation [...]
[2020-09-10 21:26] LABS: Basophils % 0.3 % (0-1.3); Hematocrit 26.7 % (36.0-45.0); Lymphocytes % 31.5 % (15.3-44.8); MPV 7.3 fL (7.6-11.3); RBC Red Blood Cell Count 2.77 M/uL (3.86-4.86)
[2020-09-10 21:49] LABS: Albumin 2.9 g/dL (3.4-5.0); Bilirubin Direct 0.2 mg/dL (0-0.2); Bilirubin Total 0.4 mg/dL (0.2-1.0); Potassium 4.4 mmol/L (3.5-5.1)
[2020-09-10] MEDS ORDERED: ONDANSETRON 4 MG/2 ML VIAL ONE (22:04)
[2020-09-10] MEDS ORDERED: FAMOTIDINE 20 MG/2 ML VIAL IV ONE (22:04)
[2020-09-10] MEDS ORDERED: NA CHLORIDE 0.9% 500 ML ONE (22:04)
[2020-09-10] MEDS ORDERED: FENTANYL CITR 100 MCG/2 ML ONE (22:04)
[2020-09-10 22:16] LABS: Urine Blood NEGATIVE (NEG); Urine Glucose NEGATIVE (NEG); Urine Protein 2+ (NEG); Urine pH 5.5 (5.0-7.0)
[2020-09-10 22:23] LABS: Blood Morphology Comment NOT SEEN (NOT SEEN); Platelet Estimate ADEQ
[2020-09-10 22:59] LABS: Urine Bacteria 20-50 /HPF (<20)
[2020-09-10 23:00] LABS: Urine RBC <5 /HPF (NONE SEEN); Urine Urothelial Cells <5 /HPF (NONE SEEN)
[2020-09-10] MEDS ORDERED: CEFTRIAXONE/SWI 1gm 1 GM/10 ML SYR ONE (23:28)
[2020-09-11 00:29] LABS: Protime INR 0.94
--- NOTE | 2020-09-11 01:51 | EDPHYS ---
Physician Documentation [facility] Name: Radha Ocampo Age: 80 yrs Sex: Female : 1940 Arrival Date: 09/10/2020 Time: 18:54 Bed 6 Private MD: ED Physician Chano Seay HPI: 09/10 22:39 This 80 yrs old Female presents to ER via Carried with complaints of mh7 Abdominal Pain. 22:39 The patient presents with abdominal pain in the upper abdomen. Onset: The mh7 symptoms/episode began/occurred last night. The symptoms do not radiate. Associated signs and symptoms: Pertinent positives: nausea and vomiting, Pertinent negatives: anorexia, blood in stools, chest pain, constipation, diarrhea, dysuria, fever, headache, hematuria, palpitations, shortness of breath, vaginal discharge, vomiting blood. The symptoms are described as intermittent, vague, waxing/waning. Modifying factors: The symptoms are alleviated by nothing, the symptoms are aggravated by nothing. Severity of pain: At its worst the pain was moderate last night, in the emergency department the pain is unchanged. The patient has experienced similar episodes in the past, multiple times. Historical: - Allergies: 19:16 meperidine HCl (rash); ca1 19:16 Morphine; ca1 - PMHx: 19:16 ADD/ADHD; Depression; DM chemical induced; giant cell arteritis; Giant Cell Arthritis; ca1 Hyperlipidemia; Hypertension; Hypothyroidism; Myocardial infarction; renal cell carcinoma; stage 3 kidney failure; renal cell carcinoma contained; - PSHx: 19:16 abdominal diverticuli with abscess; ca1 - Immunization history:: Flu vaccine is not up to date. - Social history:: Smoking status: Patient denies any tobacco usage or history of. ROS: 22:39 Constitutional: Negative for fever, chills, and weight loss, Eyes: Negative for injury, mh7 pain, redness, and discharge, ENT: Negative for injury, pain, and discharge, Neck: Negative for injury, pain, and swelling, Cardiovascular: Negative for chest pain, palpitations, and edema, Respiratory: Negative for shortness of breath, cough, wheezing, and pleuritic chest pain, Back: Negative for injury and pain, : Negative for injury, bleeding, discharge, and swelling, MS/Extremity: Negative for injury and deformity, Skin: Negative for injury, rash, and discoloration, Neuro: Negative for headache, weakness, numbness, tingling, and seizure, Psych: Negative for depression, anxiety, suicide ideation, homicidal ideation, and hallucinations, Allergy/Immunology: Negative for hives, rash, and allergies, Endocrine: Negative for neck swelling, polydipsia, polyuria, polyphagia, and marked weight changes, Hematologic/Lymphatic: Negative for swollen nodes, abnormal bleeding, and unusual bruising. Exam: 22:39 Constitutional: This is a well developed, well nourished patient who is awake, alert, mh7 and in no acute distress. Head/Face: Normocephalic, atraumatic. Eyes: Pupils equal round and reactive to light, extra-ocular motions intact. Lids and lashes normal. Conjunctiva and sclera are non-icteric and not injected. Cornea within normal limits. Periorbital areas with no swelling, redness, or edema. Neck: Trachea midline, no thyromegaly or masses palpated, and no cervical lymphadenopathy. Supple, full range of motion without nuchal rigidity, or vertebral point tenderness. No Meningismus. Chest/axilla: Normal chest wall appearance and motion. Nontender with no deformity. No lesions are appreciated. Cardiovascular: Regular rate and rhythm with a normal S1 and S2. No gallops, murmurs, or rubs. Normal PMI, no JVD. No pulse deficits. Respiratory: Lungs have equal breath sounds bilaterally, clear to auscultation and percussion. No rales, rhonchi or wheezes noted. No increased work of breathing, no retractions or nasal flaring. 22:39 Back: No spinal tenderness. No costovertebral tenderness. Full range of motion. Skin: Warm, dry with normal turgor. Normal color with no rashes, no lesions, and no evidence of cellulitis. MS/ Extremity: Pulses equal, no cyanosis. Neurovascular intact. Full, normal range of motion. Neuro: Awake and alert, GCS 15, oriented to person, place, time, and situation. Cranial nerves II-XII grossly intact. Motor strength 5/5 in all extremities. Sensory grossly intact. Cerebellar exam normal. Normal gait. Psych: Awake, alert, with orientation to person, place and time. Behavior, mood, and affect are within normal limits. 22:39 Abdomen/GI: Inspection: abdomen appears normal, Bowel sounds: normal, in all quadrants, Palpation: mild abdominal tenderness, in the epigastric area, right upper quadrant and left upper quadrant, Rectal exam: rectal tone normal, Stool: brown, guaiac negative, hemorrhoid(s), are not appreciated, mass, is not appreciated, swelling, is not appreciated, tenderness, is not appreciated, fecal impaction, is not appreciated, the exam is chaperoned by the nurse, Indicators: McBurney's point is not tender, Tejada's sign is negative, Rovsing's sign is negative, Obturator sign is negative, Psoas sign is negative, Liver: no appreciated palpable abnormalities, Hernia: not appreciated. Vital Signs: 19:13 BP 115 / 56; Pulse 81; Resp 16 S; Temp 97.1(TE); Pulse Ox 98% on R/A; Weight 56.25 kg ca1 (R); Height 5 ft. 0 in. (152.40 cm) (R); Pain 7/10; 22:00 BP 115 / 70; Pulse 69; Resp 16; Pulse Ox 98% ; rr5 23:00 BP 113 / 69; Pulse 60; Resp 15; Pulse Ox 100% ; rr5 23:53 BP 108 / 48; Pulse 65; Resp 19; Pulse Ox 97% ; rr5 09/11 01:00 BP 113 / 64; Pulse 63; Resp 17; Pulse Ox 99% on R/A; rr5 02:10 BP 116 / 80; Pulse 69; Resp 17; Temp 97.5; Pulse Ox 98% ; rr5 09/10 19:13 Body Mass Index 24.22 (56.25 kg, 152.40 cm) ca1 MDM: 01:47 Differential diagnosis: bowel obstruction, diverticulitis, gastritis, gastroesophageal mh7 reflux disease, GI Bleed, non-specific abd pain, pancreatitis, Peptic Ulcer Disease, urinary tract infection. Data reviewed: vital signs, nurses notes, lab test result(s), CBC, electrolytes, urinalysis, radiologic studies, CT scan. Data interpreted: Pulse oximetry: on room air is 97 %. Interpretation: normal. Counseling: I had a detailed discussion with the patient and/or guardian regarding: the historical points, exam findings, and any diagnostic results supporting the discharge/admit diagnosis, lab results, radiology results. Response to treatment: the patient's symptoms have resolved after treatment, the patient's blood pressure is in an acceptable range, mental status has returned to baseline, the patient no longer shows bradycardia, the patient is not short of breath, the patient is not tachycardic, the patient's pain is gone, the patient's temperature has normalized. 01:50 Patient medically screened. [facility] 01:57 Refusal of service: The patient/guardian displays adequate decision making capability [facility] and despite a detailed discussion of alternatives, benefits, risks, and consequences refuses: Admission to the hospital for further work-up and treatment. 09/10 21:07 Order name: Basic Metabolic Panel; Complete Time: 22:16 [facility] 09/10 21:07 Order name: CBC with Diff; Complete Time: 23:06 [facility] 09/10 21:07 Order name: Hepatic Function; Complete Time: 22:16 [facility] 09/10 21:07 Order name: Lipase; Complete Time: 22:16 [facility] 09/10 22:04 Order name: Manual Differential; Complete Time: 23:06 [facility] 09/10 22:14 Order name: Urine Dipstick--Ancillary (enter results) 3 09/10 21:26 Order name: CT Abd/Pelvis - IV Contrast Only [facility] 09/10 22:14 Order name: Urine Culture [facility] 09/10 22:14 Order name: Urine Microscopic Only; Complete Time: 23:06 [facility] 09/11 00:07 Order name: Protime (+inr); Complete Time: 01:12 [facility] 09/11 00:07 Order name: Ptt, Activated; Complete Time: 01:12 [facility] 09/11 00:25 Order name: CREATININE WHOLE BLOOD; Complete Time: 01:12 [facility] 09/10 21:07 Order name: IV Saline Lock; Complete Time: 21:16 [facility] 09/10 21:07 Order name: Labs collected and sent; Complete Time: 21:16 [facility] 09/10 21:12 Order name: Urine Dipstick-Ancillary (obtain specimen); Complete Time: 22:15 [facility] 09/10 21:24 Order name: EKG - Nurse/Tech; Complete Time: 21:53 [facility] Administered Medications: 09/10 20:02 Drug: Zofran (Ondansetron) 4 mg Route: IVP; Site: right forearm; 5 21:00 Follow up: Response: No adverse reaction rr5 22:00 Drug: Pepcid 20 mg Route: IVP; Site: right forearm; rr5 23:00 Follow up: Response: No adverse reaction rr5 22:00 Drug: NS 0.9% 500 ml Route: IV; Rate: bolus; Site: right forearm; rr5 23:00 Follow up: Response: No adverse reaction; IV Status: Completed infusion; IV Intake: rr5 500ml 22:05 Drug: fentaNYL (PF) 25 mcg {Note: rass 0.} Route: IVP; Site: right forearm; rr5 23:00 Follow up: Response: No adverse reaction; RASS: Alert and Calm (0) rr5 23:15 Drug: Rocephin - (cefTRIAXone) 1 grams Route: IVPB; Infused Over: 30 mins; Site: right rr5 forearm; 09/11 00:00 Follow up: Response: No adverse reaction; IV Status: Completed infusion rr5 Disposition: 09/11/20 01:50 Discharged to Home. Impression: Upper abdominal pain, unspecified, Urinary tract infection, site not specified, Pancytopenia. - Condition is Stable. - Discharge Instructions: Urinary Tract Infection, Adult, Rggb-zd-Mvmg, Abdominal Pain, Adult, Vnwm-tw-Flek, Pancytopenia. - Prescriptions for Cipro 500 mg Oral Tablet - take 1 tablet by ORAL route every 12 hours for 7 days; 14 tablet. - Medication Reconciliation Form, Thank You Letter, Antibiotic Education, Prescription Opioid Use form. - Follow up: Private Physician; When: 1 - 2 days; Reason: Worsening of condition, Recheck today's complaints, Continuance of care, Re-evaluation by your physician. - Problem is an acute exacerbation. - Symptoms have improved. Signatures: Dispatcher [employer] EDMS Wood Posada, MUNIRA-C CLINICAL DATA MANAGER-Cla1 Kane Arrieta RN RN rr5 Fang Palafox RN RN ca1 Chano Seay MD MD mh7 Corrections: (The following items were deleted from the chart) 02:12 01:50 09/11/2020 01:50 Discharged to Home. Impression: Upper abdominal pain, rr5 unspecified; Urinary tract infection, site not specified; Pancytopenia. Condition is Stable. Forms are Medication Reconciliation Form, Thank You Letter, Antibiotic Education, Prescription Opioid Use. Follow up: Private Physician; When: 1 - 2 days; Reason: Worsening of condition, Recheck today's complaints, Continuance of care, Re-evaluation by your physician. Problem is an acute exacerbation. Symptoms have improved. mh7
--- NOTE | 2020-09-11 01:51 | ER ---
Nurse's Notes [facility] Name: Radha Ocampo Age: 80 yrs Sex: Female : 1940 Arrival Date: 09/10/2020 Time: 18:54 Bed 6 Private MD: Diagnosis: Upper abdominal pain, unspecified;Urinary tract infection, site not specified;Pancytopenia Presentation: 09/10 19:13 Chief complaint: Patient states: Abdominal pain and nausea/Vomiting since this morning. ca1 HX of diverticulitis. Coronavirus screen: Client denies travel out of the [place] in the last 14 days. nausea, vomiting. Client presents with at least one sign or symptom that may indicate coronavirus-19. Standard/surgical mask placed on the client. Provider contacted for isolation considerations. Ebola Screen: Patient negative for fever greater than or equal to 101.5 degrees Fahrenheit, and additional compatible Ebola Virus Disease symptoms Patient denies exposure to infectious person. Patient denies travel to an Ebola-affected area in the 21 days before illness onset. No symptoms or risks identified at this time. Initial Sepsis Screen: Does the patient meet any 2 criteria? No. Patient's initial sepsis screen is negative. Does the patient have a suspected source of infection? No. Patient's initial sepsis screen is negative. Risk Assessment: Do you want to hurt yourself or someone else? Patient reports no desire to harm self or others. Onset of symptoms was September 10, 2020. 19:13 Method Of Arrival: Carried ca1 19:13 Acuity: CIARA 3 ca1 Historical: - Allergies: 19:16 meperidine HCl (rash); ca1 19:16 Morphine; ca1 - PMHx: 19:16 ADD/ADHD; Depression; DM chemical induced; giant cell arteritis; Giant Cell Arthritis; ca1 Hyperlipidemia; Hypertension; Hypothyroidism; Myocardial infarction; renal cell carcinoma; stage 3 kidney failure; renal cell carcinoma contained; - PSHx: 19:16 abdominal diverticuli with abscess; ca1 - Immunization history:: Flu vaccine is not up to date. - Social history:: Smoking status: Patient denies any tobacco usage or history of. Screenin:16 Abuse screen: Denies threats or abuse. Denies injuries from another. Nutritional rr5 screening: No deficits noted. Tuberculosis screening: No symptoms or risk factors identified. Fall Risk IV access (20 points). Total [place] Fall Scale indicates No Risk (0-24 pts). Assessment: 21:16 General: Appears in no apparent distress. comfortable, Behavior is calm, cooperative, rr5 appropriate for age. Pain: Complains of pain in abdomen Pain Quality of pain is described as aching, Pain began gradually, Is intermittent. Neuro: Level of Consciousness is awake, alert, obeys commands, Oriented to person, place, time, situation. Cardiovascular: Capillary refill < 3 seconds Patient's skin is warm and dry. Respiratory: Airway is patent Respiratory effort is even, unlabored, Respiratory pattern is regular, symmetrical. GI: Abdomen is round Abd is soft and non tender Reports lower abdominal pain, upper abdominal pain, nausea, vomiting. : No signs and/or symptoms were reported regarding the genitourinary system. EENT: No signs and/or symptoms were reported regarding the EENT system. Derm: Skin is intact, is healthy with good turgor, Skin temperature is warm. Musculoskeletal: Capillary refill < 3 seconds. 22:00 Reassessment: Patient appears in no apparent distress at this time. Patient is alert, rr5 oriented x 3, equal unlabored respirations, skin warm/dry/pink. 23:00 Reassessment: Patient appears in no apparent distress at this time. Patient is alert, rr5 oriented x 3, equal unlabored respirations, skin warm/dry/pink. went to restroom ambulatory steady gait noted. 23:55 Reassessment: Patient appears in no apparent distress at this time. asleep on bed no rr5 complaints made. 09/11 01:00 Reassessment: Patient appears in no apparent distress at this time. Patient is alert, rr5 oriented x 3, equal unlabored respirations, skin warm/dry/pink. awaiting for review. 02:10 Reassessment: Patient appears in no apparent distress at this time. Patient is alert, rr5 oriented x 3, equal unlabored respirations, skin warm/dry/pink. discharge instruction given and explained without complaints made Patient states feeling better. Vital Signs: 09/10 19:13 BP 115 / 56; Pulse 81; Resp 16 S; Temp 97.1(TE); Pulse Ox 98% on R/A; Weight 56.25 kg ca1 (R); Height 5 ft. 0 in. (152.40 cm) (R); Pain 7/10; 22:00 BP 115 / 70; Pulse 69; Resp 16; Pulse Ox 98% ; rr5 23:00 BP 113 / 69; Pulse 60; Resp 15; Pulse Ox 100% ; rr5 23:53 BP 108 / 48; Pulse 65; Resp 19; Pulse Ox 97% ; rr5 09/11 01:00 BP 113 / 64; Pulse 63; Resp 17; Pulse Ox 99% on R/A; rr5 02:10 BP 116 / 80; Pulse 69; Resp 17; Temp 97.5; Pulse Ox 98% ; rr5 09/10 19:13 Body Mass Index 24.22 (56.25 kg, 152.40 cm) ca1 ED Course: 09/10 18:54 Patient arrived in ED. ag5 19:15 Triage completed. ca1 19:16 Arm band placed on right wrist. ca1 21:05 Kane Arrieta RN is Primary Nurse. rr5 21:11 Chano Seay MD is Attending Physician. mh7 21:16 Inserted saline lock: 20 gauge in right forearm, using aseptic technique. Blood rr5 collected. 21:30 Patient has correct armband on for positive identification. Placed in gown. Bed in low rr5 position. Call light in reach. Side rails up X2. satellite project site monitor on. Pulse ox on. NIBP on. 22:44 CT Abd/Pelvis - IV Contrast Only In Process Unspecified. EDMS 23:30 Served as a machine sorter during rectal exam. rr5 09/11 02:11 IV discontinued, intact, bleeding controlled, No redness/swelling at site. Pressure rr5 dressing applied. Administered Medications: 09/10 20:02 Drug: Zofran (Ondansetron) 4 mg Route: IVP; Site: right forearm; rr5 21:00 Follow up: Response: No adverse reaction rr5 22:00 Drug: Pepcid 20 mg Route: IVP; Site: right forearm; rr5 23:00 Follow up: Response: No adverse reaction rr5 22:00 Drug: NS 0.9% 500 ml Route: IV; Rate: bolus; Site: right forearm; rr5 23:00 Follow up: Response: No adverse reaction; IV Status: Completed infusion; IV Intake: rr5 500ml 22:05 Drug: fentaNYL (PF) 25 mcg {Note: rass 0.} Route: IVP; Site: right forearm; rr5 23:00 Follow up: Response: No adverse reaction; RASS: Alert and Calm (0) rr5 23:15 Drug: Rocephin - (cefTRIAXone) 1 grams Route: IVPB; Infused Over: 30 mins; Site: right rr5 forearm; 09/11 00:00 Follow up: Response: No adverse reaction; IV Status: Completed infusion rr5 Intake: 09/10 23:00 IV: 500ml; Total: 500ml. rr5 Outcome: 09/11 01:50 Discharge ordered by . sophia 02:11 Discharged to home via wheelchair, with family. rr5 02:11 Condition: stable 02:11 Discharge instructions given to patient, Instructed on discharge instructions, follow up and referral plans. medication usage, Demonstrated understanding of instructions, follow-up care, medications, Prescriptions given X 1. 02:12 Patient left the ED. rr5 Addendum: 09/14/2020 07:43 Addendum: Culture Results: Positive urine culture. No further action required. Bacteria a a5 sensitive to prescribed antibiotic. Signatures: Dispatcher [employer] EDMS Crystal Bryson RN RN aa5 Kane Arrieta RN RN rr5 Fang Palafox RN RN ca1 Rebeca Johnson 5 Chano Seay MD MD 7
[2020-09-11 02:24] VITALS: BP 116/80; TEMP 97.5; O2SAT 98
--- NOTE | 2020-09-11 16:12 | RAD REPORT ---
EXAM DESCRIPTION: CT ABDOMEN AND PELVIS WITH CONTRAST CLINICAL HISTORY: ABD PAIN COMPARISON: 05/13/2020 TECHNIQUE: CT of the abdomen and pelvis performed following IV administration of iodinated contras t. FINDINGS: Lung Bases: The visualized lung bases are clear. Bones: Degenerative endplate spondylosis and facet arthropathy throughout the spine. Abdomen: Liver: The liver has normal size and density. No intrahepatic biliary dilatation. Hepatic granulomas. Gallbladder: Not identified. Spleen, Pancreas, and Adrenal Glands: The spleen, pancreas, and adrenal glands are unremarkable. Sp lenic granulomas. Kidneys: Prior right nephrectomy. No hydronephrosis or obstructing calculus of the left kidney. Vasculature: Aortoiliac atherosclerosis. IVC is unremarkable. The portal vein is patent. The proxim al visceral and renal arteries are patent. Stomach: Postoperative change of the stomach. Other: No free intraperitoneal air. No free fluid or lymphadenopathy. Pelvis: Bladder: Trabeculated appearance of the urinary bladder wall with bladder diverticula. Bowel: No dilated loops of large or small bowel. Scattered diverticula of the colon. Appendix: Normal appendix. Pelvis: Uterus is not enlarged. IMPRESSION: 1. Mild wall thickening of the urinary bladder with bladder diverticula. 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 2. Diverticulosis without evidence of acute diverticulitis. This exam was performed according to our departmental dose-optimization program, which includes autom ated exposure control, adjustment of the mA and/or kV according to patient size and/or use of iterati ve reconstruction technique. Electronically signed by: Timothy Roberts 09/10/2020 10:56 PM BEREAVEMENT PROGRAM COORDINATOR Due to temporary technical issues with the PACS/Fluency reporting system, reports are being signed by the in house radiologists without review as a courtesy to insure prompt reporting. The interpreting radiologist is fully responsible for the content of the report.
== END 2020-09-11 02:12 | disposition home or self-care (01) ==
LOC: ER 18:52
DX: R10.10 Upper abdominal pain, unspecified (principal); N39.0 Urinary tract infection, site not specified; D61.818 Other pancytopenia; F90.9 Attention-deficit hyperactivity disorder, unspecified type; F32.9 Major depressive disorder, single episode, unspecified; E78.5 Hyperlipidemia, unspecified; I12.9 Hypertensive chronic kidney disease with stage 1 through stage 4 chronic kidney disease, or unspecified chronic kidney disease; N18.30 Chronic kidney disease, stage 3 unspecified; Z85.528 Personal history of other malignant neoplasm of kidney; E03.9 Hypothyroidism, unspecified; I25.2 Old myocardial infarction
CPT/HCPCS: 93005; 87088; 85025; 87086; 80048; 36415 ×2; 85610; 82565; 80076; 85730; 83690; 74177; Q9967; J3010; J0696; J7040; J2405; 81003; 81015; 87077; 87186; 96361; 96365; 96375; 99285

== ENCOUNTER 2020-11-01 20:55 | Observation (INO) | payer OTHER ==
--- OUTSIDE RECORDS SUMMARY | 2020-11-01 21:40 | XMS REPORT | Continuity of Care Document ---
:1940 Author Organization [facility] t Address [address] [place] [address] [address] [place] [address] Care Team Providers Name Role Phone Renetta Lester MD Attending Clinician Kenyon VERGARA Attending Clinician Sadia VERGARA Attending Clinician RENETTA LESTER Attending Clinician Unavailable Diomedes VERGARA Attending Clinician Feliberto Wilder MD Attending Clinician DIOMEDES Attending Clinician Unavailable Tello Crawford MD Attending Clinician KENYON Attending Clinician Unavailable Ha Mckeon MD Attending Clinician Jos Pearson MD Attending Clinician RENETTA LESTER Admitting Clinician Unavailable Tello CRAWFORD Admitting Clinician Unavailable HA MCKEON Admitting Clinician Unavailable Payers Payer Name Policy Type Policy Effective Date Expiration Date Sour ce Number [facility] [id number] [facility] - MEDICARE MGD 00:00:00 [facility] [id number] 020-Present Problems Condition Condition Condition Status Onset Resolution Last Treating Co mments Source Name Details Category Date Date Treatment Clinician Date Bright red Bright red Disease Active [facility] blood per blood per 9- [facility] - rectum rectum 00:00: Medical 00 [place] Colitis Colitis Disease Active [facility] - 00:[facility]: Medical 00 [place] Dehydratio Dehydratio Disease Active 2019-[address] n n 04-24 [facility] - 00:00: Medical 00 [place] Elevated Elevated Disease Active 2019- [facility] LFTs LFTs 04-24[facility] - 00:00: Medical 00 [place] Steroid-in Steroid-in Disease Active 2019- [facility] duced duced 04-24 [facility] - hyperglyce hyperglyce 00:00: Me dical claudia claudia 00 Center Meningioma Meningioma Disease Active [facility] - 00:00: Medical 00 [place] Renal cell Renal cell Disease Active 2019-[address] carcinoma carcinoma 04-21 [facility] - of right of right 00:00: Medica l kidney kidney 00 [place] Fatigue Fatigue Disease Active [facility] - 00:00: Medical 00 [place] Hypothyroi Hypothyroi Disease Active 2019-[address] dism dism 04-01 [facility] - 00:00: Medical [place] Diabetes Diabetes Disease Active 2019- [facility] mellitus mellitus 04-01 [facility] - 00:00: Medical 00 [place] Hypertensi Hypertensi Disease Active 2019-[address] on on 04-01 - 00:00: Medical 00 [place] 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 04-01 [facility] - 00:00: Medical 00 [place] Diverticul Diverticul Disease Active 2019-0 C HI [...] [facility] - adverse 00:00: Medical reaction 00 [place] s Morphine Propensi Active Rash 2019- [facility] ty to 8 [facility] - adverse 00:00: Medical reaction 00 [place] s Family History Family Member Diagnosis Comments Start Date Stop Date Source Natural brother Cancer [facility] Natural father Cancer [facility] Natural mother Diabetes [facility] Natural mother Heart disease [facility] Natural sister Breast cancer [facility] Natural sister Cancer [facility] Social History Social Habit Start Date Stop Date Quantity Comments [facility] Std Drinks Medica l [place] [facility] Alcohol Binge Medical Tony ter Sex Assigned At [facility] Tobacco use and 2020-04-21 2020-04-21 Never used [facility] - exposure 00:00:00 00:00:00 [facility] Alcohol intake 2020-04-21 2020-04-21 Current [facility] - 00:00:00 00:00:00 non-drinker of Medical Ce nter alcohol (finding) History SDOH 2020-04-21 2020-04-21 1 [facility] - Alcohol Frequency 00:00:00 00:00:00 [facility] Smoking Status Start Date Stop Date Source Never smoker [facility] M edical [place] Medications Ordered Filled Start Stop Current Ordering Indication Dosage Frequency Signature Comments Components Source Medication Medication Date Date Medication? Clinician (SIG) Name Name aspirin 81 2020-0 Yes 1{tbl} QD Take [address] MG EC 9-28 tablet by [facility] - tablet 21:06: mouth Medical 43 daily. [place] nitroglycer 2020-0 Yes 1{tbl} Place 1 C [...] Cap 21:06: mouth Medica l 43 daily. [place] calcium 2020-0 Yes 1{tbl} QD Take 1 [...] by mouth Center daily for 30 days. insulin 2019- No QD Inject [facility] glargine 04-24 subcutaneo [facility] - (LANTUS) 14:59: 00:00 usly Medical 100 unit/mL 34 :00 nightly Cente r injection Use as directed2- 5 units depending on blood sugar . atorvastati 2019- No 1{tbl} QD Take [address] n (LIPITOR) 04-24 tablet by Celina kes - 80 MG 14:59: 00:00 mouth Medical tablet 34 :00 daily. [place] tocilizumab 2019- No 1{dose} Inject [address] (ACTEMRA) 04-24- Dose [facility] - 162 mg/0.9 14:59: 00:00 subcutaneo Medical mL Syrg 34 :00 usly every Center 7 days Friday. insulin Yes 6U QD Inject 6 [facility] [...] daily Ndle before meals and nightly. rosuvastati No 10mg QD Take [address] [...] as Medica l tablet 50 :00 needed. Center fluconazole 2019- No 400mg QD Take 2 [...] last 450 mg Tab 05 :00 daily. [place] furosemide 2019- No 20mg Take [address] (LASIX) 20 6-17 -19 by mouth Luke s - MG tablet 00:00: 00:00 as needed. M edical 00 :00 [place] levothyroxi Yes 1{tbl} QD Take [address] ne 3-20 tablet by [facility]ukes - (SYNTHROID, 00:00: mouth Medic al LEVOTHROID) 00 daily. [place] 75 MCG tablet losartan Yes 1{tbl} QD Take 1 [facility] t (COZAAR) 3-20 tablet by [facility]ukes - 100 MG 00:00: mouth Medical tablet 00 daily. [place] diltiazem Yes 1{tbl} QD Take 1 [facility] [...] blood 2020-05-15 19:29:00 105 mm[Hg] [facility] Diastolic blood 2020-05-15 19:29:00 64 mm[Hg] [facility] - pressure [facility] Heart rate 2020-05-15 19:29:00 112 /min [facility] Body temperature 2020-05-15 19:29:00 36.39 Dianna [facility] Respiratory rate 2020-05-15 19:29:00 18 /min [facility] Oxygen saturation in 2020-05-15 19:29:00 95 /min [facility] Arterial blood by Medical Ce nter Pulse oximetry Body height 2020-05-14 05:33:00 152.4 cm [facility] Body weight 2020-05-14 05:33:00 60.782 kg [facility] BMI 2020-05-14 05:33:00 26.17 kg/m2 [facility] Procedures Procedure Date / Time Performing Clinician Source Performed REPORT OF PROCEDURE - 2020-05-17 11:50:23 Provider, Default [facility] ENDOSCOPY SCAN [facility] RHYTHM STRIP - SCAN 2020-05-17 11:50:21 Provider, Default [facility] POCT-GLUCOSE METER 2020-05-15 11:55:00 Viviana Mccullough [facility] POCT-GLUCOSE METER 2020-05-15 07:45:00 Viviana Mccullough [facility] BASIC METABOLIC PANEL (7) 2020-05-15 04:30:00 Yoanna Lizama [facility] CBC (HEMOGRAM ONLY) 2020-05-15 04:30:00 Yoanna Lizama [facility] POCT-GLUCOSE METER 2020-05-14 21:48:00 Yoanna Lizama [facility] POCT-GLUCOSE METER 2020-05-14 21:07:00 Yoanna Lizama [facility] HEMOGLOBIN AND HEMATOCRIT 2020-05-14 16:32:00 Yoanna Lizama [facility] SARS-COV2/RT-PCR ([facility] & 2020-05-14 12:28:00 Yoanna Lizama CH, I [facility] HEMOGLOBIN AND HEMATOCRIT 2020-05-14 08:28:00 Yoanna Lizama [facility] HEMOGLOBIN A1C 2020-05-14 08:28:00 Kenyon Yoanna [facility] RHYTHM STRIP - SCAN 2020-05-10 10:00:20 Provider, Default [facility] REPORT OF PROCEDURE - 2020-05-10 10:00:18 Provider, Default [facility] ENDOSCOPY [facility] ECG 12-LEAD 2020-05-06 13:39:59 Lupis Bridges [facility] POCT-GLUCOSE METER 2020-05-06 12:38:[address] [facility] POCT-GLUCOSE METER 2020-05-06 07:48:[address] [facility] BASIC METABOLIC PANEL (7) 2020-05-06 04:04:00 Keaton Wilder i [facility] POCT-GLUCOSE METER 2020-05-05 22:10:[address] [facility] POCT-GLUCOSE METER 2020-05-05 17:35:[address] [facility] POCT-GLUCOSE METER 2020-05-05 12:00:[address] [facility] POCT-GLUCOSE METER 2020-05-05 08:36:[address] [facility] HEMOGLOBIN A1C 2020-05-05 06:09:00 Meño [facility] BASIC METABOLIC PANEL (7) 2020-05-05 06:09:00 Keaton Wilder i [facility] POCT-GLUCOSE METER 2020-05-04 22:28:[address] [facility] POCT-GLUCOSE METER 2020-05-04 17:33:[address] [facility] POCT-GLUCOSE METER 2020-05-04 11:48:00 [facility] 2020-05-04 09:37:00 Meño [facility] POCT-GLUCOSE METER 2020-05-04 07:53:[address] [facility] BASIC METABOLIC PANEL (7) 2020-05-04 05:08:00 Keaton Wilder bernice [facility] POCT-GLUCOSE METER 2020-05-03 22:02:[address] [facility] C. DIFFICILE GDH TOXIN 2020-05-03 18:44:00 [facility] + SHIGA 2020-05-03 18:44:00 Lay Lester [facility] FECAL LEUKOCYTES 2020-05-03 18:44:[address] [facility] OVA AND PARASITE 2020-05-03 18:44:00 Lay Lester [facility] SHIGA TOXIN SCREEN 2020-05-03 18:44:00 [facility] CHARGE 2020-05-03 18:44:[address] [facility] POCT-GLUCOSE METER 2020-05-03 14:38:[address] [facility] BLOOD CULTURE 2020-05-03 05:54:[address] [facility] BASIC METABOLIC PANEL (7) 2020-05-03 05:54:[address] [facility] HEPATIC FUNCTION PANEL 2020-05-03 05:54:00 Lay Lester [facility] PROTHROMBIN TIME/INR 2020-05-03 05:54:00 Lay Lester [facility] MAGNESIUM 2020-05-03 05:54:[address] [facility] CBC W/PLT COUNT & AUTO 2020-05-03 05:54:00 Lay Lester [facility] - DIFFERENTIAL [facility] RHYTHM STRIP - SCAN 2020-04-26 13:51:12 Esther Dickson [facility] POCT-GLUCOSE METER 2020-04-24 16:31:00 Tara Crawford [facility] HEPATITIS PANEL, ACUTE 2020-04-24 15:43:00 Tara Crawford [facility] ECHO W/ CONTRAST LIMITED 2020-04-24 14:37:21 Tara Crawford [facility] POCT-GLUCOSE METER 2020-04-24 12:25:00 Tara Crawford [facility] LIPID PANEL 2020-04-24 11:15:00 Tara Crawford [facility] COMPREHENSIVE METABOLIC 2020-04-24 11:15:00 Tara Crawford [facility] POCT-GLUCOSE METER 2020-04-24 07:59:00 Tara Crawford [facility] VITAMIN B12 AND FOLATE 2020-04-24 06:43:00 Tara Crawford [facility] METHYLMALONIC ACID 2020-04-24 06:43:00 Tara Crawford [facility] PROTEIN ELECTROPHORESIS, 2020-04-24 06:43:00 Tara Crawford [facility] FERRITIN 2020-04-24 06:43:00 Tara Crawford [facility] HEMOGLOBIN A1C 2020-04-24 06:43:00 Tara Crawford [facility] TSH/FREE T4 IF INDICATED 2020-04-24 06:43:00 Tara Crawford [facility] POCT-GLUCOSE METER 2020-04-23 23:06:00 Tara Crawford [facility] US ABDOMEN LIMITED 2020-04-23 20:40:00 Tara Crawford [facility] POCT-GLUCOSE METER 2020-04-23 17:29:00 Tara Crawford [facility] MR BRAIN WITH & WITHOUT 2020-04-23 16:50:00 Tara Crawford [facility] IV CONTRAST [facility] CT BRAIN WITHOUT IV 2020-04-23 09:17:00 Tara Crawford [facility] BASIC METABOLIC PANEL (7) 2020-04-23 04:02:00 Tara Crawford [facility] HEPATIC FUNCTION PANEL 2020-04-23 04:02:00 Tara Crawford [facility] CBC W/PLT COUNT & AUTO 2020-04-23 04:02:00 Tara Crawford [facility] POCT-GLUCOSE METER 2020-04-23 03:50:00 Tara Crawford [facility] POCT-GLUCOSE METER 2020-04-22 20:53:00 Tara Crawford [facility] POCT-GLUCOSE METER 2020-04-22 16:06:00 Tara Crawford [facility] POCT-GLUCOSE METER 2020-04-22 12:06:00 Tara Crawford [facility] 2D ECHO MODE W/O DOPPLER 2020-04-22 10:03:04 Tara Crawford [facility] POCT-GLUCOSE METER 2020-04-22 08:28:00 Tara Crawford [facility] BASIC METABOLIC PANEL (7) 2020-04-22 05:22:00 Tara Crawford [facility] HEPATIC FUNCTION PANEL 2020-04-22 05:22:00 Tara Crawford [facility] MAGNESIUM 2020-04-22 05:22:00 Tara Crawford [facility] PHOSPHORUS 2020-04-22 05:22:00 Tara Crawford [facility] CBC W/PLT COUNT & AUTO 2020-04-22 05:22:00 Tara Crawford [facility] SARS-COV2/RT-PCR ([facility] & 2020-04-22 00:49:00 Tara Crawford [facility] REF LABS) [facility] POCT-GLUCOSE METER 2020-04-21 23:29:00 Tara Crawford [facility] BLOOD CULTURE 2020-04-21 21:35:00 Tara Crawford [facility] URINALYSIS W/ MICROSCOPIC 2020-04-21 21:19:00 Tara Crawford [facility] ECG 12-LEAD 2020-04-21 19:42:44 Tara Crawford [facility] CBC W/PLT COUNT & AUTO 2020-04-05 06:24:00 AdriaRonald [facility] S t [facility] DIFFERENTIAL [facility] COMPREHENSIVE METABOLIC 2020-04-05 04:25:00 Is[address] [facility] MET[facility]OLIC 2020-04-04 04:01:[address] [facility] [address] kes - PANEL [facility] 2020-04-03 04:04:00 [facility] CBC W/PLT COUNT & AUTO 2020-04-03 04:04:00 Cristinoadena [facility] - DIFFERENTIAL [facility] COMPREHENSIVE METABOLIC 2020-04-02 04:31:00 [facility] CBC W/PLT COUNT & AUTO 2020-04-02 04:31:00 [facility]ana [facility] DI[facility] COMPREHENSIVE METABOLIC 2020-04-01 04:44:[address] [facility] - PANEL [facility] MAGNESIUM 2020-04-01 04:44:00 [facility] PHOSPHORUS 2020-04-01 04:44:00 [facility] CBC W/PLT COUNT & AUTO 2020-04-01 04:44:[address] [facility] - DIFFERENTIAL [facility] ANAEROBIC CULTURE 2020-03-31 18:14:00 Lamin Natacha [employer] FUNGUS CULTURE + SMEAR 2020-03-31 18:14:00 [place], Natacha [facility] CT DRAINAGE ABDOMINAL 2020-03-31 18:12:00 Cristinoadena [facility] WOUND CULTURE + GRAM 2020-03-31 18:04:00 HaydeMitaMagaña Rere Kaleb [facility] PT/APTT 2020-03-31 09:15:00 Cristinojuana [facility] MAGNESIUM 2020-03-31 09:15:00 Cristinoadena [facility] LACTIC ACID, VENOUS 2020-03-31 09:15:00 [facility] COMPRE[facility]ENSIVE METABOLIC 2020-03-31 09:15:00 Cristinoadena [facility] PANEL [facility] CBC W/PLT COUNT & AUTO 2020-03-31 09:15:00 [facility] DIFFERENTIAL [facility] Plan of Care Planned Activity Planned Date Details Comments Source Future Scheduled 2021-01-20 Urine screening for [facility] - Test 00:00:00 protein (procedure) [facility] [code = 160943158] Future Scheduled 2020-11-[address] Celina kes - Test 00:00:00 measurement [facility] (procedure) [code = 90123826] Future Scheduled 2020-08-[address] [facility] - Test 00:00:00 (12+) [code = Medical Center DEPRESSION SCREENING (12+)] Future Scheduled 2020-07-[address] [facility] - Test 00:00:00 WELLNESS (YEAR 2 or Medical Center FIRST YEAR if no IPPE) [code = MEDICARE ANNUAL WELLNESS (YEAR 2 or FIRST YEAR if no IPPE)] Future Scheduled 2020-04-18 INFLUENZA VACCINE (#1) [facility] Test 00:00:00 [code = INFLUENZA Medical Ce nter VACCINE (#1)] Future Scheduled 2006 PNEUMOCOCCAL 65+ YRS [facility] - Test 00:00:00 (1 of 1 - Medical Center [id number] PCV13) [code = PNEUMOCOCCAL 65+ YRS (1 of 1 - VSHP49_Csxaazh PCV13)] Future Scheduled 1991 SHINGLES VACCINES ([address] [facility] - Test 00:00:00 of 2) [code = SHINGLES Medic al Center VACCINES (1 of 2)] Future Scheduled 1960 DTAP/TDAP/TD VACCINES [facility] - Test 00:00:00 (1 - Tdap) [code = Medical C enter DTAP/TDAP/TD VACCINES (1 - Tdap)] Future Scheduled 1959 HEPATITIS C SCREENING [facility] - Test 00:00:00 [code = HEPATITIS C Medical Center SCREENING] Future Scheduled 1951 DIABETIC EYE EXAM [facility] - Test 00:00:00 [code = DIABETIC EYE Medical Center EXAM] Future Scheduled [address] Vikram es - Test 00:00:00 examination Medical Center (regime/therapy) [code = 156583504] Results Test Description Test Time Test Comments Results Result Comments Source POC-Glucose meter 2020-05-15 12:07:00 Test Item Value Reference Range Interpretation Comme nts POC-Glucose Meter (test code = 145 mg/dL 70-110 H : TESTED AT [facility] [address]) [facility], [address]: Indian Nanny/Techni sebastian ID = [id number] for JAYSON OVIEDO E Lab Interpretation (test code = Abnormal 51997-2) [facility] [id number] 12:07:00 Test Item Value Reference Range Interpretation Comments POC-GLUCOSE METER 145 mg/dL 70-110 H : TESTED A T [facility] [address] (BEAKER) (test code = JEANE R [facility], 1538) [address]: Indian Nanny/Techni sebastian ID = [id number] for ESHA VU CAOENNE SARS-CoV2/RT-PCR (Asymptomatic ONLY)2020-05-15 10:07:00 Test Item Value Reference Range Interpretation Comments SARS-COV2/RT-PCR Negative Not Detected, (test code = Negative, See 74547-7) external report for linked test SARS-COV-2 [facility] ROLY PERFORMING LAB (test code = 02056-7) ANGELA (test code = Negative result for [...] of the Act. Fact Sheet for Healthcare Providers:https://www.[employer]/sites/default/f adrian/product/documents/F act_Sheet_HC_Providers_L emu_CGUD-OdN-7.pdf Fact Sheet for Healthcare Patients:https://www.[employer]/sites/default/fi les/product/documents/Fa ct_Sheet_Patients_Lyra_S ARS-CoV-2.pdf Performing Laboratory:[facility] [place] [address] [facility] & REF LABS)2020-05-15 10:07:00 Test Item Value Reference Range Interpretation Comments SARS-COV2/RT-PCR (test Negative Not Detected, Negative, code = 0095702) See external report for linked test SARS-COV-2 PERFORMING LAB [facility] ROLY (test code = 0970913) Negative result for this test determines that [...] 564(g) of the Act.Fact Sheet for Healthcare Providers:https://www.[employer]/sites/default/files/product/documents/Fact_Shee n_PY_Cmmstdnyz_Wtal_CIOH-RcM-3.pdfFact Sheet for Healthcare Patients:https://www.[employer]/sites/default/files/product/ documents/Wtew_Pmvsm_Tunprgrx_Cmnd_SDIT-SqL-6.pdfPerforming Laboratory:[facility], [place] [id number] METER 2020-05-15 07:57:00 Test Item Value Reference Range Interpretation Comments POC-GLUCOSE METER 145 mg/dL 70-110 H : TESTED A T [facility] [address] (BEAKER) (test code = JEANE [place], 1538) [address]: Indian Nanny/Techni sebastian ID = [id number] for RUDDY STUBBS Basic metabolic [id number] 06:06:00 Test Item Value Reference Range Interpretation Comments Sodium (test code = 140 meq/L 074-241 8325-2) Potassium (test code 4.0 meq/L 3.5-5.1 Specime n slightly = 2823-3) hemolyzed Chloride (test code = 103 meq/L 98-107 2075-0) CO2 (test code = 26 meq/L 22-29 2028-9) BUN (test code = 13 mg/dL 7-21 3094-0) Creatinine (test code 0.75 mg/dL 0.57-1.25 Specim en slightly = 2160-0) hemolyzed Glucose (test code = 120 mg/dL 70-105 H 2345-7) Calcium (test code = 8.2 mg/dL 8.4-10.2 L 43170-1) EGFR (test code = 75 mL/min/1.73 [place] [address]-3) NOT ACCURATE CREATININE CLEARANCE IN PREDICTING GLOMERULAR FILTRATION RATE . ESTIMATED GFR I S NOT APPLICABLE FOR DIALYSIS PATIENTS. ANGELA (test code = ANGELA) Indian Nanny ID - NEFTALY LSpecimen slightly icteric Lab Interpretation Abnormal (test code = 27237-6) [facility] [id number] 06:06:00 Test Item Value Reference Range Interpretation Comments SODIUM (BEAKER) 140 meq/L 136-145 (test code = 381) POTASSIUM (BEAKER) 4.0 meq/L 3.5-5.1 Specimen slightly (test code = 379) hemolyzed CHLORIDE (BEAKER) 103 meq/L 98-107 (test code = 382) CO2 (BEAKER) (test 26 meq/L - code = 355) BLOOD UREA NITROGEN 13 [...] S NOT APPLICABLE FOR DIALYSIS PATIEN TS. Indian Nanny ID - PIAYA LSpecimen slightly ictericCBC (Hemogram only)2020-05-15 05:38:00 Test Item Value Reference Range Interpretation Comments WBC (test code = 6690-2) 6.7 See_Comment [A utomated message] The system [employer] generated this result transmitted ref erence range: 3.5 - 10 .5 K/L. The refe rence range was not u sed to interpret this result as normal/abnor mal. RBC (test code = 789-8) 4.09 See_Comment [Au tomated message] The system [employer] generated this result transmitted ref erence range: 3.93 - 5 .22 M/L. The refe rence range was not u sed to interpret this result as normal/abnor mal. MCHC (test code = 786-4) 32.2 See_Comment [A utomated message] The system [employer] generated this result transmitted ref erence range: 32.2 - 3 5.5 GM/DL. The refe rence range was not u sed to interpret this result as normal/abnor mal. Hematocrit (test code = 38.2 % 34.1-44.9 4544-3) MCV (test code = 787-2) 93.4 fL 79.4-94.8 MCH (test code = 785-6) 30.1 pg 25.6-32.2 RDW (test code = 788-0) 16.8 % 11.7-14.4 H Platelets (test code = 99 See_Comment L [Aut omated message] 777-3) The system [employer] generated this result transmitted ref erence range: 150 - 45 0 K/CU MM. The referen ce range was not u sed to interpret this result as normal/abnor mal. MPV (test code = 10.1 fL 9.4-12.3 80377-3) nRBC (test code = 413) 0 See_Comment [Aut omated message] The system [employer] generated this result transmitted ref erence range: 0 - 0 /1 00 WBC. The refere nce range was not u sed to interpret this result as normal/abnor mal. Lab Interpretation (test Abnormal code = 44758-0) [facility] (HEMOGRAM ONLY)2020-05-15 05:38:00 Test Item [...] WBC 0-0 (test code = 413) POCT-GLUCOSE [id number] 21:59:00 Test Item Value Reference Range Interpretation Comments POC-GLUCOSE METER 129 mg/dL 70-110 H : TESTED A T [facility] [address] (BEAKER) (test code = JEANE [place], 1538) [address]: Indian Nanny/Techni sebastian ID = [id number] for ANDREW QAMAR CAROLRANGEL BRAXTONCheryle POCT-GLUCOSE [id number] 21:20:00 Test Item Value Reference Range Interpretation Comments POC-GLUCOSE METER 68 mg/dL 70-110 L : TESTED A T [facility] [address] (BEAKER) (test code = JEANE [place], 1538) [address]: Indian Nanny/Techni sebastian ID = [id number] for THAD ARROYO Hemoglobin and [id number] 16:58:00 Test Item Value Reference Range Interpretation Comments Hemoglobin (test code 12.1 See_Comment [Auto mated = 786-4) message] The system which generated this result transmit dominic reference range : 11.2 - 15.7 GM/ DL. The reference range was not u sed to interpret th is result as normal/abnormal . Hematocrit (test code 36.7 % 34.1-44.9 = 4544-3) ANGELA (test code = ANGELA) Indian Nanny ID - [id number] Lab Interpretation Normal (test code = 86277-5) [facility]MO[facility] [id number] 16:58:00 Test Item Value Reference Range Interpretation Comments HEMOGLOBIN (BEAKER) (test code = 12.1 GM/DL 11.2-15.7 410) HEMATOCRIT (BEAKER) (test code = 36.7 % 34.1-44.9 411) Indian Nanny ID - 6000Hemoglobin [id number] 10:03:00 Test Item Value Reference Range Interpretation Comments Hemoglobin A1C (test code = 4548-4) 8.4 % 4.3-6.1 H Lab Interpretation (test code = Abnormal 94773-9) [facility]MO[facility] [id number] 10:03:00 Test Item Value Reference Range Interpretation Comments HEMOGLOBIN A1C (BEAKER) (test code = 8.4 % 4.3-6.1 H 368) HEMOGLOBIN AND [id number] 09:18:00 Test Item Value Reference Range Interpretation Comments HEMOGLOBIN (BEAKER) (test code = 12.8 GM/DL 11.2-15.7 410) HEMATOCRIT (BEAKER) (test code = 38.7 % 34.1-44.9 411) Indian Nanny ID - 6000Ova and Parasite Bttbyelhklu6561-69-71 12:20:00 Test Item Value Reference Range Interpretation Comments O&P Direct Smear (test No ova or parasites No ova or code = 14093-4) seen parasites seen O&P Concentrate Smear No ova or parasites No ova or (test code = 83855-0) seen parasites seen O&P Trichrome Smear No ova or parasites No ova or (test code = 45056-3) seen parasites seen Lab Interpretation (test Normal code = 34957-0) [facility] PARASITE [id number] 12:20:00 Test Item Value Reference Range Interpretation [...] = No growth in 5 days 6463-4) [facility] CenterBLO[facility] [id number] 08:00:00 Test Item Value Reference Range Interpretation Comments CULTURE (BEAKER) (test No growth in 5 days code = 1095) BLOOD [id number] 08:00:00 Test Item Value Reference Range Interpretation Comments CULTURE (BEAKER) (test No growth in 5 days code = 1095) Stool culture + Shiga [id number] 11:02:00 Test Item Value Reference Range Interpretation Comments Result (test code = No Salmonella, Shigella or 6463-4) [facility]ylobacter [facility] SHIGA [id number] 11:02:00 Test Item Value Reference Range Interpretation Comments CULTURE (BEAKER) No Salmonella, Shigella (test code = 1095) or Campylobacter isolated ECG 12 [id number] 08:27:58Interface, External Ris In - 05/07/2020 8:28 AM CDTVentricular Rate 76 BPMAtrial Rate 76 BPMP-R Interval 154 msQRS Duration 84 msQ-T Interval 378 msQTC Calculation(Bazett) 425 msP [place] 19 degreesR [place] -1 degreesT [place] 32 degreesSinus rhythm with marked sinus arrhythmiaCannot rule out Inferior infarct , age undeterminedAbnormal ECGWhen compared with ECG of 21-APR-2020 19:42,No significant change wasfoundConfirmed by Ankur Leyva ([id number]) on 05/07/2020 8:27:53 [facility]PO[facility] [id number] 12:51:00 Test Item Value Reference Range Interpretation Comments POC-GLUCOSE METER 255 mg/dL 70-110 H : Notified RN/MD: (ENRICO) (test code = TESTED AT [facility] 6720 1538) [facility], [address]: Indian Nanny/Techni sebastian ID = [id number] for AN KAITLIN POLLARD POCT-GLUCOSE [id number] 08:22:00 Test Item Value Reference Range Interpretation Comments POC-GLUCOSE METER 197 mg/dL 70-110 H : [facility] (BEAKER) (test code = [facility], 1538) [address]: Indian Nanny/Techni sebastian ID = [id number] for AN KAITLIN POLLARD BASIC METABOLIC [id number] 05:46:00 Test Item Value Reference Range Interpretation [...] S NOT APPLICABLE FOR DIALYSIS PATIEN TS. Indian Nanny ID - EVELIA MSpecimen slightly ictericPOCT-GLUCOSE [id number] 22:22:00 Test Item Value Reference Range Interpretation Comments POC-GLUCOSE METER 323 mg/dL 70-110 H : [facility] (BEAKER) (test code = [facility], 153) [address]: Indian Nanny/Techni sebastian ID = [id number] for Tai Lara POCT-GLUCOSE [id number] 17:46:00 Test Item Value Reference Range Interpretation Comments POC-GLUCOSE METER 245 mg/dL 70-110 H : TESTED A T [facility] 6720 (BEAKER) (test code = [facility], 153) [address]: Indian Nanny/Techni sebastian ID = [id number] for BR OWNTAYLOR POCT-GLUCOSE [id number] 12:12:00 Test Item Value Reference Range Interpretation Comments POC-GLUCOSE METER 317 mg/dL 70-110 H : TESTED A T [facility] 6720 (BEAKER) (test code = [facility], 153) [address]: Indian Nanny/Techni sebastian ID = [id number] for BR OWNTAYLOR Shiga Toxin [id number] 10:32:00 Test Item Value Reference Range Interpretation Comments Shiga toxin 1 (test code = Not detected Not detected 58584-3) Shiga toxin 2 (test code = Not detected Not detected 04563-9) Lab Interpretation (test code = Normal 85978-5) [facility] [id number] 10:32:00 Test Item Value Reference Range Interpretation Comments SHIGA TOXIN 1 (BEAKER) (test Not detected Not detected code = 2177) SHIGA TOXIN 2 (BEAKER) (test Not detected Not detected code = 2179) STOOL PATH [id number] 10:15:00 Test Item Value Reference Range Interpretation Comments Pathogen exam charged (test code = Done 2381) [facility] [id number] 10:15:00 Test Item Value Reference Range Interpretation Comments PATHOGEN EXAM CHARGED (BEAKER) (test Done code = 2381) POCT-GLUCOSE [id number] 08:57:00 Test Item Value Reference Range Interpretation Comments POC-GLUCOSE METER 205 mg/dL 70-110 H : TESTED A T [facility] 6720 (BEAKER) (test code = [facility] Leann [facility], 153) [address]: Indian Nanny/Techni sebastian ID = [id number] for BR OWNTAYLOR HEMOGLOBIN [id number] 08:19:00 Test Item Value Reference Range Interpretation Comments HEMOGLOBIN A1C (BEAKER) (test code = 8.4 % 4.3-6.1 H 368) BASIC METABOLIC [id number] 07:56:00 Test Item Value Reference Range Interpretation [...] S NOT APPLICABLE FOR DIALYSIS PATIEN TS. Indian Nanny ID - PIAYA PERRIpecimedorys slightly ictericPOCT-GLUCOSE [id number] 22:55:00 Test Item Value Reference Range Interpretation Comments POC-GLUCOSE METER 229 mg/dL 70-110 H : TESTED A T [facility] 6720 (BEAKER) (test code = [facility], 1538) [address]: Indian Nanny/Techni sebastian ID = [id number] for Karla Jackson POCT-GLUCOSE [id number] 17:45:00 Test Item Value Reference Range Interpretation Comments POC-GLUCOSE METER 306 mg/dL 70-110 H : TESTED A T [facility] 6720 (BEAKER) (test code = [facility] [employer] [facility], 1538) [address]: Indian Nanny/Techni sebastian ID = [id number] for DI EPSTEIN POCT-GLUCOSE [id number] 11:59:00 Test Item Value Reference Range Interpretation Comments POC-GLUCOSE METER 150 mg/dL 70-110 H : TESTED A T [facility] 6720 (BEAKER) (test code = [facility] [employer] [facility], 1538) [address]: Indian Nanny/Techni sebastian ID = [id number] for DI EPSTEIN [id number] 10:18:00 Test Item Value Reference Range Interpretation Comments Potassium (test code = 4.9 meq/L 3.5-5.1 Speci men 2823-3) slightly hemolyzed ANGELA (test code = ANGELA) Indian Nanny ID - EVELIA M Lab Interpretation Normal (test code = 06453-0) [facility] 10:18:00 Test Item Value Reference Range Interpretation Comments POTASSIUM (BEAKER) 4.9 meq/L 3.5-5.1 Specimen slightly (test code = 379) hemolyzed Indian Nanny ID - EVELIA MPOCT-GLUCOSE [id number] 08:04:00 Test Item Value Reference Range Interpretation Comments POC-GLUCOSE METER 156 mg/dL 70-110 H : TESTED A T [facility] 6720 (BEAKER) (test code = [facility], 1538) [address]: Indian Nanny/Techni sebastian ID = [id number] for DI EPSTEIN BASIC METABOLIC [id number] 05:51:00 Test Item Value Reference Range Interpretation [...] S NOT APPLICABLE FOR DIALYSIS PATIEN TS. Indian Nanny ID - NEFTALY LSpecimen slightly ictericClostridium difficile GDH Toxin 2020-05-04 05:03:00 Test Item Value Reference Range Interpretation Comments C. Difficle Toxin Negative Negative (test code = 2993376188) C. Difficile GDH Positive Negative A C. difficil e Antigen (test code = present but toxin [id number]) not detected. Indicates colonization wi th non-toxigenic [...] of kit performance was done by the [facility] Microbiology Lab prior to clinical use. Lab Interpretation Abnormal (test code = 62813-0) [facility] Center[facility]. DIFFICILE GDH [id number] 05:03:00 Test Item Value Reference Range Interpretation Comments CDT TOXIN (test code Negative Negative = 1636028400) CDT GDH ANTIGEN Positive Negative A C. difficile present but (test code = toxin not detec dominic. 9895981384) Indicates colon ization with non-toxige faith strain [...] of kit performance was done by the [facility] Microbiology Lab prior to clinical use.Fecal [id number] 00:34:00 Test Item Value Reference Range Interpretation Comments Fecal Leukocytes (test No fecal leukocytes No fecal leukocytes code = 03860-2) seen seen Lab Interpretation Normal (test code = 15121-6) [facility] CenterFECAL [id number] 00:34:00 Test Item Value Reference Range Interpretation Comments FECAL LEUKOCYTES No fecal leukocytes No fecal leukocytes (BEAKER) (test code = seen seen 992) POCT-GLUCOSE [id number] 22:14:00 Test Item Value Reference Range Interpretation Comments POC-GLUCOSE METER 224 mg/dL 70-110 H : TESTED A T [facility] 6720 (BEAKER) (test code = [facility], 1538) [address]: Indian Nanny/Techni sebastian ID = [id number] for SHAHZAD BRUCE POCT-GLUCOSE [id number] 14:51:00 Test Item Value Reference Range Interpretation Comments POC-GLUCOSE METER 120 mg/dL 70-110 H : TESTED A T [facility] 6720 (BEAKER) (test code = [facility], 1538) [address]: Indian Nanny/Techni sebastian ID = [id number] for SA CADENAHEMIYA Maya BASIC METABOLIC [id number] 11:35:00 Test Item Value Reference Range Interpretation [...] S NOT APPLICABLE FOR DIALYSIS PATIEN TS. Indian Nanny ID - EVELIA MSpecimen slightly ictericHepatic function [id number] 11:32:00 Test Item Value Reference Range Interpretation Comments Protein, Total (test 4.5 See_Comment L [Autom ated code = 2885-2) message] The system which generated this result transmitted reference range : 6.0 - 8.3 gm/dL . The reference range was not used to interpr et this result as normal/abnormal . Albumin (test code = 3.0 g/dL 3.5-5 L 71797-9) Total Bilirubin (test 0.6 mg/dL 0.2-1.2 code = 1975-2) Bilirubin, Direct 0.3 mg/dL 0.1-0.5 (test code = 1968-7) Alkaline Phosphatase 48 U/L 40-150 (test code = 6768-6) AST (test code = 40 U/L 5-34 H 1920-8) ALT (test code = 107 U/L 6-55 H 1742-6) ANGELA (test code = ANGELA) Indian Nanny ID - EVELIA Leaimedorys slightly icteric Lab Interpretation Abnormal (test code = 32922-7) [facility]2020-09-16 11:32:00 Test Item Value Reference Range Interpretation Comments Magnesium (test code = 1.9 mg/dL 1.6-2.6 98909-3) ANGELA (test code = ANGELA) Indian Nanny ID Juan A ALTAMIRANO M Lab Interpretation (test Normal code = 26942-2) [facility]2020-09-16 11:32:00 Test Item Value Reference Range Interpretation Comments MAGNESIUM (BEAKER) (test code = 1.9 mg/dL 1.6-2.6 627) Indian Nanny ID - EVELIA MHEPATIC FUNCTION [id number] 11:32:00 Test Item Value Reference Range Interpretation [...] code = 107 U/L 6-55 H 347) Indian Nanny ID Juan A Davilaecimedorys slightly ictericProthrombin time/[id number] 07:18:00 Test Item Value Reference Interpretation Comments Range Protime (test code = 14.7 See_Comment H [Autom ated 5902-2) message] The system which generated this result transmitted reference range : 11.9 - 14.2 seconds. The reference range was not used to interpret this result as normal/abnormal . INR (test code = 1.18 See_Comment [Automated 6301-6) message] The system which generated this result transmitted reference range : <=5.90. The reference range was not used to interpret this result as normal/abnormal . ANGELA (test code = Effective 01/13/2019: ANGELA) PT Reference Range ChangeNew: 11.9-14.2 Previous: 11.7-14.7 RECOMMENDED COUMADIN/WARFARIN INR THERAPY RANGESSTANDARD DOSE: 2.0-3.0 Includes: PROPHYLAXIS for venous thrombosis, systemic embolization; TREATMENT for venous thrombosis and/or pulmonary embolus.HIGH RISK: Target INR is 2.5-3.5 for patients wiht mechanical heart valves. Lab Interpretation Abnormal (test code = 49104-2) [facility] CenterPROTHROMBIN TIME/[id number] 07:18:00 Test Item Value Reference Range Interpretation [...] heart valves.CBC with platelet count + automated [id number] 07:11:00 Test Item Value Reference Range Interpretation Comments WBC (test code = 6690-2) 6.2 See_Comment [A utomated message] The system [employer] generated this result transmitted ref erence range: 3.5 - 10 .5 K/L. The refe rence range was not u sed to interpret this result as normal/abnor mal. RBC (test code = 789-8) 3.99 See_Comment [Au tomated message] The system [employer] generated this result transmitted ref erence range: 3.93 - 5 .22 M/L. The refe rence range was not u sed to interpret this result as normal/abnor mal. MCHC (test code = 786-4) 32.3 See_Comment [A utomated message] The system [employer] generated this result transmitted ref erence range: 32.2 - 3 5.5 GM/DL. The refe rence range was not u sed to interpret this result as normal/abnor mal. Hematocrit (test code = 37.2 % 34.1-44.9 4544-3) MCV (test code = 787-2) 93.2 fL 79.4-94.8 MCH (test code = 785-6) 30.1 pg 25.6-32.2 RDW (test code = 788-0) 15.1 % 11.7-14.4 H Platelets (test code = 98 See_Comment L [Aut omated message] 777-3) The system [employer] generated this result transmitted ref erence range: 150 - 45 0 K/CU MM. The referen ce range was not u sed to interpret this result as normal/abnor mal. MPV (test code = 10.9 fL 9.4-12.3 67997-4) nRBC (test code = 413) 0 See_Comment [Aut omated message] The system [employer] generated this result transmitted ref erence range: 0 - 0 /1 00 WBC. The refere nce range was not u sed to interpret this result as normal/abnor mal. % Neutros (test code = 72 % 429) % Lymphs (test code = 17 % 430) % Monos (test code = 10 % 431) % Eos (test code = 432) 1 % % Baso (test code = 437) 0 % # Neutros (test code = 4.41 See_Comment [Aut omated message] 670) The system [employer] generated this result transmitted ref erence range: 1.56 - 6 .13 K/L. The refe rence range was not u sed to interpret this result as normal/abnor mal. # Lymphs (test code = 1.02 See_Comment L [Auto mated message] 414) The system [employer] generated this result transmitted ref erence range: 1.18 - 3 .74 K/L. The refe rence range was not u sed to interpret this result as normal/abnor mal. # Monos (test code = 0.60 See_Comment H [Autom ated message] 415) The system [employer] generated this result transmitted ref erence range: 0.24 - 0 .36 K/L. The refe rence range was not u sed to interpret this result as normal/abnor mal. # Eos (test code = 416) 0.07 See_Comment [Au tomated message] The system [employer] generated this result transmitted ref erence range: 0.04 - 0 .36 K/L. The refe rence range was not u sed to interpret this result as normal/abnor mal. # Baso (test code = 417) 0.01 See_Comment [A utomated message] The system [employer] generated this result transmitted ref erence range: 0.01 - 0 .08 K/L. The refe rence range was not u sed to interpret this result as normal/abnor mal. Immature 1 % 0-1 Granulocytes-Relative (test code = 2801) Lab Interpretation (test Abnormal code = 38645-3) [facility] W/PLT COUNT & AUTO [id number] 07:11:00 Test Item Value Reference Range Interpretation [...] PERCENT (BEAKER) (test code = 2801) Methylmalonic [id number] 09:07:00 Test Item Value Reference Interpretation Comments Range Methlymalonic 206 nmol/L 87-318 This test was Acid,Ser (test developed and its code = 3770026) analytical p erformance characteristics havebeen determ ined by [facility] .It has not been cleare d or approved by FDA . This assay has been validatedpursua nt to the CLIA regula tions and is used for clinical purpos es. ANGELA (test code = Performing Lab ANGELA) EZ [facility] [address] [address] [place] [address] Bernice Singletary MD, PhD, RICHI [facility] CenterBLOOD [id number] 23:00:00 Test Item Value Reference Range Interpretation Comments CULTURE (BEAKER) (test No growth in 5 days code = 1095) BLOOD [id number] 23:00:00 Test Item Value Reference Range Interpretation Comments CULTURE (BEAKER) (test No growth in 5 days code = 1095) Protein electrophoresis, [id number] 13:55:00 Test Item Value Reference Range Interpretation Comments Albumin Fraction 3.0 g/dL 3.5-5.5 L (test code = 405) Alpha 1 Fraction 0.2 g/dL 0.2-0.4 (test code = 389) Alpha 2 Fraction 0.8 g/dL 0.5-0.9 (test code = 390) Beta Fraction (test 0.6 g/dL 0.6-1.1 code = 392) Gamma Globulin 0.4 g/dL 0.7-1.7 L Fraction (test code = 391) Interpretation (test Pattern suggestive code = 2615) of mild acute inflammation coupled with urine protein loss and/or protein-losing enteropathy. No monoclonal bands detected. Pathologist: (test Yudith code = 2616) MD Adelfo (electronic signature) Protein, Total (test 5.0 See_Comment L [Autom ated code = 7430) message] The system which generated this result transmitted reference range : 6.0 - 8.3 gm/dL . The reference range was not used to interpr et this result as normal/abnormal . ANGELA (test code = Indian Nanny ID - EVELIA ANGELA) M Lab Interpretation Abnormal (test code = 69645-7) [facility] CenterPROTEIN ELECTROPHORESIS, [id number] 13:55:00 Test Item Value Reference Range Interpretation [...] and/or protein-losing enteropathy. No monoclonal bands detected. [id number] Yudith Emanuel MD (BEAKER) (test code = (electronic signature) 2616) PROTEIN TOTAL SERUM, 5.0 gm/dL 6.0-8.3 L SPEP (BEAKER) (test code = 2660) Indian Nanny ID - EVELIA MHepatitis panel, [id number] 17:11:00 Test Item Value Reference Range Interpretation Comments Hep A IgM (test code = Nonreactive Nonreactive 49004-5) Hep B C IgM (test code = Nonreactive Nonreactive 87571-7) Hepatitis C Ab (test code = Nonreactive Nonreactive 14488-9) HBsAg Screen (test code = Nonreactive Nonreactive 5195-3) ANGELA (test code = ANGELA) Indian Nanny ID - DB Lab Interpretation (test Normal code = 84854-3) [facility] CenterHEPATITIS PANEL, [id number] 17:11:00 Test Item Value Reference Range Interpretation Comments HEPATITIS A IGM ANTIBODY (BEAKER) Nonreactive Nonreactive (test code = 498) HEPATITIS B CORE IGM ANTIBODY Nonreactive Nonreactive (BEAKER) (test code = 645) HEPATITIS C ANTIBODY (BEAKER) Nonreactive Nonreactive (test code = 367) HEPATITIS B SURFACE ANTIGEN (2) Nonreactive Nonreactive (BEAKER) (test code = 2585) Indian Nanny ID - DBPOCT-GLUCOSE [id number] 16:42:00 Test Item Value Reference Range Interpretation Comments POC-GLUCOSE METER 236 mg/dL 70-110 H : TESTED A T [facility] 6720 (BEAKER) (test code = JEANE Noriega [facility], 1538) [address]: Indian Nanny/Techni sebastian ID = [id number] for Giulia Wade Echo w contrast limited [id number] 16:31:12Ejection FractionSLEH ECHO HEARTLAB MKCKESSON CPACSInterface, External Ris In - 04/24/2020 4:31 PM C DTTransthoracic Echocardiography Report (TTE) Demographics Patient Name TUNDE WELLER Date of Study 04/24/2020 DARRION Gender Female Visit Number [id number] Race Unknown Room Number 1550 Number Date of 1940 Referring Tara Crawford MD Physician Age 79 year(s) 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 Peg Morales [facility] Interpreting Gabe Buckley MD Physician Procedure [...] LVOT Diameter: 1.94cm LVOT Area: 2.96 cm^2[facility]PO[facility] METER 2020-04-24 12:36:00 Test Item Value Reference Range Interpretation Comments POC-GLUCOSE METER 276 mg/dL 70-110 H : TESTED A T [facility] 6720 (JOEYToldo) (test code = [place], 1538) [address]: Indian Nanny/Techni sebastian ID = [id number] for Giulia Wade HEMOGLOBIN [id number] 12:07:00 Test Item Value Reference Range Interpretation Comments HEMOGLOBIN A1C (BEAKER) (test code = 8.0 % 4.3-6.1 H 368) Comprehensive metabolic [id number] 11:48:00 Test Item Value Reference Range Interpretation Comments Protein, Total (test 5.6 See_Comment L Specime n slightly code = 2885-2) hemolyzed [Automated message] The system which generated this result transmitted reference range : 6.0 - 8.3 gm/dL . The reference range was not used to interpr et this result as normal/abnormal . Albumin (test code = 3.4 g/dL 3.5-5 L Specime n slightly 96165-4) hemolyzed Alkaline Phosphatase 79 U/L 40-150 (test code = 6768-6) Total Bilirubin (test 0.8 mg/dL 0.2-1.2 Specim en slightly code = 1974-2) hemolyzed Sodium (test code = 136 meq/L 917-619 7350-2) Potassium (test code 4.5 meq/L 3.5-5.1 Specime n slightly = 2823-3) hemolyzed Chloride (test code = 100 meq/L 98-107 5-0) CO2 (test code = 31 meq/L 22-29 H 2027-9) BUN (test code = 24 mg/dL 7-21 H 3094-0) Creatinine (test code 0.90 mg/dL 0.57-1.25 Specim en slightly = 2160-0) hemolyzed Glucose (test code = 336 mg/dL 70-105 H 2345-7) Calcium (test code = 8.9 mg/dL 8.4-10.2 39999-5) AST (test code = 45 U/L 5-34 H Specimen sl ightly 1920-8) hemolyzed ALT (test code = 120 U/L 6-55 H Specimen sl ightly 1742-6) hemolyzed EGFR (test code = 61 mL/min/1.73 [place] [address]-3) m NOT ACCURATE CREATININE CLEARANCE IN PREDICTING GLOMERULAR FILTRATION RATE . ESTIMATED GFR I S NOT APPLICABLE FOR DIALYSIS PATIENTS. ANGELA (test code = ANGELA) Indian Nanny TIARA Ramon moderately icteric Lab Interpretation Abnormal (test code = 40068-8) [facility] CenterLipid [id number] 11:48:00 Test Item Value Reference Range Interpretation Comments Triglycerides (test 225 mg/dL Specimen code = 2571-8) slightly hemolyzed Cholesterol (test 241 mg/dL Specimen code = 2092-3) slightly hemolyzed HDL (test code = 60 mg/dL 2085-04) LDL Calculated (test 136 mg/dL code = 70094-7) ANGELA (test code = Triglyceride ANGELA) Reference Range: Low Risk <150 Borderline 150-199 High Risk 200-499 Very High Risk >=500 Cholesterol Reference Range: Low Risk <200 Borderline 200-239 High Risk >240 HDL Cholesterol Reference Range: Low Risk >=60 High Risk <40 LDL Cholesterol Reference Range: Optimal <100 Near Optimal 100-129 Borderline 130-159 High 160-189 Very High >=190 Indian Nanny ID - SUSI MSpecimen moderately icteric [facility] HospitalCOMPREHENSIVE METABOLIC [id number] 11:48:00 Test Item Value Reference Range Interpretation [...] S NOT APPLICABLE FOR DIALYSIS PATIEN TS. Indian Nanny ID - SUSI MSpecimen moderately ictericLIPID [id number] 11:48:00 Test Item Value Reference Range Interpretation [...] Borderline 130-159 High 160-189 Very High >=190 Indian Nanny ID - SUSI MSpecimen moderately ictericTSH/Free T4 If [id number] 10:29:00 Test Item Value Reference Range Interpretation Comments TSH (test code = 3.805 See_Comment [Automated 72975-3) message] The system which generated this result transmit dominic reference range : 0.350 - 4.940 uIU/mL. The reference range was not used to interpret this result as normal/abnormal . ANGELA (test code = ANGELA) Indian Nanny ID - AALUCRETIAID Lab Interpretation Normal (test code = 07365-5) [facility] CenterTSH/FREE T4 IF [id number] 10:29:00 Test Item Value Reference Range Interpretation Comments THYROID STIMULATING HORMONE 3.805 uIU/mL 0.350-4.940 (BEAKER) (test code = 772) Indian Nanny ID - PRCMRBWBuhidqkw2999-75-25 09:30:00 Test Item Value Reference Range Interpretation Comments Ferritin (test code = 292.76 ng/mL 5-275 H 2276-4) ANGELA (test code = ANGELA) Indian Nanny ID - AAHAMID Lab Interpretation (test Abnormal code = 54729-7) [facility] CenterVitamin B12 and [id number] 09:30:00 Test Item Value Reference Range Interpretation Comments Vitamin B12 (test 1155 pg/mL 213-816 H code = 2132-9) Folate (test code = 8.50 ng/mL See_Comment [Automa dominic 2284-8) message] The system which generated this result transmit dominic reference range : >=7.00. The reference range was not used to interpret this result as normal/abnormal . ANGELA (test code = ANGELA) Indian Nanny ID - AAHAMID Lab Interpretation Abnormal (test code = 00828-7) [facility] Test Item Value Reference Range Interpretation Comments FERRITIN (BEAKER) (test code = 292.76 ng/mL 5.00-275.00 H 361) Indian Nanny ID - AAHAMIDVITAMIN B12 AND [id number] 09:30:00 Test Item Value Reference Range Interpretation Comments VITAMIN B12 (BEAKER) (test code = 1155 pg/mL 213-816 H 774) FOLATE (BEAKER) (test code = 362) 8.50 ng/mL >=7.00 Indian Nanny ID - AAHAMIDPOCT-GLUCOSE [id number] 08:10:00 Test Item Value Reference Range Interpretation Comments POC-GLUCOSE METER 197 mg/dL 70-110 H : TESTED A T [facility] 6720 (BEAKER) (test code = [place], 1538) [address]: Indian Nanny/Techni sebastian ID = [id number] for Wy Giulia mckee MR, BRAIN, [id number] 02:52:00Unlisted Reason for Exam - Click Yes [...] 02:52:33 MR brain without & with IV [id number] 02:52:00Interface, External Ris In - 04/24/2020 2:54 [...] Rao Torre MDReport Verified Date/Time: 04/24/2020 02:52:33 [facility], ABDOMINAL, LIMITED 2020-04-23 23:25:00Abdomen limited area? Add [...] Cholecystectomy and right nephrectomy. . Signed: Rao Torreort Verified Date/Time: 04/23/2020 23:25:58 US abdomen [id number] 23:25:00 Interface, External Ris In - 04/23/2020 [...] and right nephrectomy. . Signed: Rao Torre MDRarslanort Verified Date/Time: 04/23/2020 23:25:58 [facility] [id number] 23:17:00 Test Item Value Reference Range Interpretation Comments POC-GLUCOSE METER 206 mg/dL 70-110 H : TESTED A T [facility] 67[address] (Pivto) (test code = [place], 1538) [address]: Indian Nanny/Techni sebastian ID = [id number] for LAVONNE MUSTAFA POCT-GLUCOSE [id number] 17:40:00 Test Item Value Reference Range Interpretation Comments POC-GLUCOSE METER 249 mg/dL 70-110 H : Notified RN/MD: (ENRICO) (test code = TESTED AT [facility] 6720 1538) [place], [address]: Indian Nanny/Techni sebastian ID = [id number] for Jazmin Sandoval CT, BRAIN, WITHOUT [id number] 10:32:00Unlisted Reason for Exam - Click Yes [...] recommended for further evaluation. Signed: Stephanie Rangel Verified Date/Time: 04/23/2020 10:32:40 [facility] brain without IV [id number] 10:32:00Interface, External Ris In - 04/23/2020 10:34 [...] Stephanie Rangel MDReport Verified Date/Time: 04/23/2020 10:32:40 [facility] W/PLT COUNT & AUTO DIFFERENTIAL 2020-04-23 [...] (BEAKER) (test code = 2801) BASIC METABOLIC [id number] 05:03:00 Test Item Value Reference Range Interpretation [...] S NOT APPLICABLE FOR DIALYSIS PATIEN TS. Indian Nanny ID - EVELIA MSpecimen moderately ictericHEPATIC FUNCTION [id number] 05:03:00 Test Item Value Reference Range Interpretation [...] Specimen moderately (test code = 347) hemolyzed Indian Nanny ID - EVELIAAdonay Davilaecimen moderately ictericPOCT-GLUCOSE [id number] 04:01:00 Test Item Value Reference Range Interpretation Comments POC-GLUCOSE METER 193 mg/dL 70-110 H : TESTED A T [facility] 6720 (BEAKER) (test code [facility], = 1538) [address]: Indian Nanny/Techni sebastian ID = [id number] for ESME RUSSELL POCT-GLUCOSE [id number] 21:04:00 Test Item Value Reference Range Interpretation Comments POC-GLUCOSE METER 198 mg/dL 70-110 H : TESTED A T [facility] 6720 (BESONYA) (test code = [place], 1538) [address]: Indian Nanny/Techni sebastian ID = [id number] for Alla Molina 2D Echo W/O Doppler(No Doppler)2020-04-22 16:55:47Ejection FractionSLEH ECHO HEARTLAB MKCKESSON CPACSInterface, External Ris In - 04/22/2020 4:55 PM C DTTransthoracic Echocardiography Report (TTE) Demographics Patient Name TUNDE WELLER Date of Study 04/22/2020 DARRION Gender Female Visit Number [id number] Race Unknown Room Number 1550 Number Date of 1940 Referring [place] Physician Age 79 year(s) 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 Grade 1 diastolic dysfunction (impaired relaxation and [...] CO: 5.65 l/min LVOT CI: 3.65 l/min/m^2[facility]PO[facility] [id number] 16:17:00 Test Item Value Reference Range Interpretation Comments POC-GLUCOSE METER 266 mg/dL 70-110 H : TESTED A T [facility] 67[address] (BEAKER) (test code = [place], 1538) [address]: Indian Nanny/Techni sebastian ID = [id number] for KIRK KRISHNABRUCE SARS-COV2/RT-PCR ([facility])2020-04-22 14:59:00 Test Item Value Reference Range Interpretation Comments SARS-COV2/RT-PCR (test Negative Not Detected, Negative, code = 2958311) See external report for linked test SARS-COV-2 PERFORMING LAB [facility] ROLY (test code = 8947121) Negative result for this test determines that [...] 564(g) of the Act.Fact Sheet for Healthcare Providers:https://www.Beatpacking.whodoyou/sites/default/files/product/documents/Fact_Shee e_ZJ_Fbsrvvqbg_Qaic_XYOB-FzM-8.pdfFact Sheet for Healthcare Patients:https://www.[employer].whodoyou/sites/default/files/product/ documents/Vusg_Jjhwz_Ipyuntum_Ketr_TXXR-XtY-8.pdfPerforming Laboratory:[facility], [place] [address]NEIE-ESLYRXO METER 2020-04-22 12:21:00 Test Item Value Reference Range Interpretation Comments POC-GLUCOSE METER 210 mg/dL 70-110 H : TESTED A T [facility] 67[address] (BEAKER) (test code = JEANE Noriega [facility], 1538) [address]: Indian Nanny/Techni sebastian ID = [id number] for BRUCE DUMONT [id number] 11:00:00 Test Item Value Reference Range Interpretation Comments Phosphorus (test code = 3.1 mg/dL 2.3-4.7 2777-1) ANGELA (test code = ANGELA) Indian Nanny ID Juan A ALTAMIRANO M Lab Interpretation (test Normal code = 86853-4) [facility] CenterPHOSPHORUS2020-09-05 11:00:00 Test Item Value Reference Range Interpretation Comments PHOSPHORUS (BEAKER) (test code = 3.1 mg/dL 2.3-4.7 604) Indian Nanny ID - EVELIA [id number] 11:00:00 Test Item Value Reference Range Interpretation Comments MAGNESIUM (BEAKER) (test code = 1.9 mg/dL 1.6-2.6 627) Indian Nanny ID - EVELIA MBASIC METABOLIC [id number] 11:00:00 Test Item Value Reference Range Interpretation [...] S NOT APPLICABLE FOR DIALYSIS PATIEN TS. Indian Nanny ID - EVELIA MSpecimen moderately ictericHEPATIC FUNCTION [id number] 11:00:00 Test Item Value Reference Range Interpretation [...] code = 112 U/L 6-55 H 347) Indian Nanny ID - EVELIA MSpecimen moderately ictericPOCT-GLUCOSE [id number] 08:40:00 Test Item Value Reference Range Interpretation Comments POC-GLUCOSE METER 187 mg/dL 70-110 H : TESTED A T [facility] 6720 (BEAKER) (test code = [place], 1538) [address]: Indian Nanny/Techni sebastian ID = [id number] for BRUCE DUMONT CBC W/PLT COUNT & AUTO [id number] 07:04:00 Test Item Value Reference Range Interpretation [...] PERCENT (BEAKER) (test code = 2801) POCT-GLUCOSE [id number] 23:41:00 Test Item Value Reference Range Interpretation Comments POC-GLUCOSE METER 211 mg/dL 70-110 H : TESTED A T [facility] 67[address] (BEAKER) (test code = JEANE Noriega [facility], 1538) [address]: Indian Nanny/Techni sebastian ID = [id number] for SHABBIR BENA Urinalysis w/[id number] 21:58:00 Test Item Value Reference Range Interpretation Comments Color, UA (test code Light Yellow = 5778-6) Clarity, UA (test Clear code = 5767-9) Specific [place], UA 1.029 1.001-1.035 (test code = 5811-5) pH, UA (test code = 6.0 5.0-8.0 5803-2) Protein, UA (test Negative Negative code = 70498-8) Glucose, UA (test 30 mg/dL Negative A code = 365) Ketones, UA (test Negative Negative code = 2514-8) Bilirubin, UA (test Negative Negative code = 07760-0) Blood, UA (test code Negative Negative = 43863-2) Nitrite, UA (test Negative Negative code = 5802-4) Leukocytes, UA (test Trace Negative A code = 5799-2) Urobilinogen, UA 0.2 mg/dL 0.2-1 (test code = 15282-3) RBC, UA (test code = 1 See_Comment [Autom ated 24535-9) message] The system which generated this result transmit dominic reference range : /HPF. The reference range was not used to interpret this result as normal/abnormal . WBC, UA (test code = 3 See_Comment [Autom ated 5821-4) message] The system which generated this result transmit dominic reference range : /HPF. The reference range was not used to interpret this result as normal/abnormal . Squam Epithel, UA <1 See_Comment [Automate d (test code = 87300-0) messag e] The system which generated this result transmit dominic reference range : /HPF. The reference range was not used to interpret this result as normal/abnormal . Specimen Source (test code = 2795) ANGELA (test code = ANGELA) Indian Nanny ID - [auto]Indian Nanny ID - steve Lab Interpretation Abnormal (test code = 76391-8) [facility]IN[facility] W/ [id number] 21:58:00 Test Item Value Reference Range Interpretation [...] = 516) SOURCE(BEAKER) (test code = 2795) Indian Nanny ID - [auto]Indian Nanny ID - hankFungus culture + [id number] 18:07:00 Test Item Value Reference Range Interpretation Comments Result (test code = 3+ Lorri albicans A 6463-4) Fungus Smear (test code = No fungi seen 1406) Lab Interpretation (test Abnormal code = 86288-6) [facility] CenterFUN[facility] CULTURE + [id number] 18:07:00 Test Item Value Reference Range Interpretation Comments CULTURE (BEAKER) A 3+ Lorri albicans (test code = 1095) FUNGUS SMEAR No fungi seen (BEAKER) (test code = 1406) Anaerobic [id number] 18:52:00 Test Item Value Reference Range Interpretation Comments Result (test code = No anaerobes isolated 6463-4) [facility] CenterANAEROBIC [id number] 18:52:00 Test Item Value Reference Range Interpretation Comments CULTURE (BEAKER) (test No anaerobes isolated code = 1095) CBC W/PLT COUNT & AUTO [id number] 06:39:00 Test Item Value Reference Range Interpretation [...] (BEAKER) (test code = 2801) COMPREHENSIVE METABOLIC [id number] 06:17:00 Test Item Value Reference Range Interpretation [...] S NOT APPLICABLE FOR DIALYSIS PATIEN TS. Indian Nanny ID - EVELIA [facility] METABOLIC [id number] 05:24:00 Test Item Value Reference Range Interpretation [...] S NOT APPLICABLE FOR DIALYSIS PATIEN TS. Indian Nanny ID - EDASIWOUND CULTURE + GRAM [id number] 10:29:00 Test Item Value Reference Range Interpretation [...] <1+ budding yeast (BEAKER) (test code = 162143) CBC W/PLT COUNT & AUTO [id number] 05:33:00 Test Item Value Reference Range Interpretation [...] (BEAKER) (test code = 2801) COMPREHENSIVE METABOLIC [id number] 05:08:00 Test Item Value Reference Range Interpretation [...] S NOT APPLICABLE FOR DIALYSIS PATIEN TS. Indian Nanny ID - EDASISpecimen slightly ictericCOMPREHENSIVE METABOLIC PANEL [...] S NOT APPLICABLE FOR DIALYSIS PATIEN TS. Indian Nanny ID - PIAYA LSpecimen slightly ictericCBC W/PLT COUNT & AUTO [id number] 05:03:00 Test Item Value Reference Range Interpretation [...] (BEAKER) (test code = 2801) CT, DRAINAGE, [id number] 12:12:00Reason for exam:->Diverticulitis with increasing size of abscessFINAL REPORT PROCEDURE: CT, DRAINAGE, ABDOMINAL DOSE REDUCTION: The examination was performed according to departmental dose-optimization program which includes automated exposure control, adjustment of the mA and/or kV according to patient size and/or use of iterative reconstruction technique. HISTORY: Diverticulitis with increasing size of abscess Indian Nanny: Bam Ko MD Moderate sedation: See nursing [...] dilated using serial dilators. Subsequently a 8 Samoan all-purpose drainage catheter was advanced into the [...] MDReport Verified Date/Time: 04/01/2020 12:12:30 Reading Location: [address] Transitional Reading Room CT drainage [id number] 12:12:00Interface, External Ris In - 04/01/2020 12:14 PM CDTFINAL REPORT PROCEDURE: CT, DRAINAGE, ABDOMINAL DOSE REDUCTION: The examination was performed according to departmental dose-optimization program which includes automated exposure control, adjustment of the mA and/or kV according to patient size and/or use of iterative reconstruction technique. HISTORY: Diverticulitis with increasing size of abscess Indian Nanny: Bam Ko MD Moderate sedation: See nursing [...] dilated using serial dilators. Subsequently a 8 Samoan all-purpose drainage catheter was advanced into the [...] MDReport Verified Date/Time: 04/01/2020 12:12:30 Reading Location: [facility] C0[facility] Transitional Reading Room Electronicallysigned by: BAM KO MD on 04/01/2020 12:12 [facility] W/PLT COUNT & AUTO [id number] 06:34:00 Test Item Value Reference Range Interpretation [...] 0-1 PERCENT (BEAKER) (test code = 2801) [id number] 06:33:00 Test Item Value Reference Range Interpretation Comments MAGNESIUM (BEAKER) 2.0 mg/dL 1.6-2.6 Specimen slightly (test code = 627) hemolyzed Indian Nanny ID - EVELIA [id number] 06:33:00 Test Item Value Reference Range Interpretation Comments PHOSPHORUS (BEAKER) 2.0 mg/dL 2.3-4.7 L Specimen slightly (test code = 604) hemolyzed Indian Nanny ID - EVELIA MCOMPREHENSIVE METABOLIC [id number] 06:33:00 Test Item Value Reference Range Interpretation [...] S NOT APPLICABLE FOR DIALYSIS PATIEN TS. Indian Nanny ID - EVELIA MSpecimen slightly ictericCOMPREHENSIVE METABOLIC [...] 347) EGFR (BEAKER) (test 63 mL/min/1.73 ESTIMA DOMNIIC GFR IS code = 1092) sq m NOT ACCURATE CREATININE CLEARANCE IN PREDICTING GLOMERULAR FILTRATION RATE . ESTIMATED GFR I S NOT APPLICABLE FOR DIALYSIS PATIEN TS. Indian Nanny ID - AUG CSpecimen slightly [id number] 09:49:00 Test Item Value Reference Range Interpretation Comments MAGNESIUM (BEAKER) (test code = 2.1 mg/dL 1.6-2.6 627) Indian Nanny ID - MICHELL CLactic acid, [id number] 09:45:00 Test Item Value Reference Range Interpretation Comments Lactate, Venous (test code 1.05 mmol/L 0.5-2.2 = 2872) ANGELA (test code = ANGELA) Indian Nanny ID - MICHELL C Lab Interpretation (test Normal code = 08651-2) [facility] CenterLACTIC ACID, [id number] 09:45:00 Test Item Value Reference Range Interpretation Comments LACTATE BLOOD VENOUS (2) (BEAKER) 1.05 mmol/L 0.50-2.20 (test code = 2872) Indian Nanny ID - MICHELL CPT/[id number] 09:35:00 Test Item Value Reference Interpretation Comments Range Protime (test code = 13.5 See_Comment [Autom ated 5902-2) message] The system which generated this result transmitted reference range : 11.9 - 14.2 seconds. The reference range was not used to interpret this result as normal/abnormal . INR (test code = 1.06 See_Comment [Automated 5841-6) message] The system which generated this result transmitted reference range : <=5.90. The reference range was not used to interpret this result as normal/abnormal . PTT (test code = 24.2 See_Comment [Automated 74986-2) message] The system which generated this result transmitted reference range : 22.5 - 36.0 seconds. The reference range was not used to interpret this result as normal/abnormal . ANGELA (test code = Effective 01/13/2019: ANGELA) PT Reference Range ChangeNew: 11.9-14.2 Previous: 11.7-14.7 RECOMMENDED COUMADIN/WARFARIN INR THERAPY RANGESSTANDARD DOSE: 2.0-3.0 Includes: PROPHYLAXIS for venous thrombosis, systemic embolization; TREATMENT for venous thrombosis and/or pulmonary embolus.HIGH RISK: Target INR is 2.5-3.5 for patients wiht mechanical heart valves. Lab Interpretation Normal (test code = 08525-1) [facility] CenterPT/[id number] 09:35:00 Test Item Value Reference Range Interpretation [...] mechanical heart valves.CBC W/PLT COUNT & AUTO [id number] 09:26:00 Test Item Value Reference Range Interpretation [...] 417) IMMATURE GRANULOCYTES-RELATIVE 0 % 0-1 PERCENT (JOEYAKER) (test code = 2801)
[2020-11-01 22:12] VITALS: BMI 25.2
[2020-11-01] MEDS ORDERED: LOPERAMIDE HCL 2 MG CAPSULE PO PRN (22:28)
[2020-11-01] MEDS ORDERED: DIPHENHYDRAMINE 25 MG TAB/CAP PO PRN (22:28)
[2020-11-01] MEDS ORDERED: ACETAMINOPHEN 325 MG TABLET PO PRN (22:28)
[2020-11-01] MEDS ORDERED: ONDANSETRON 4 MG/2 ML VIAL IV PRN (22:28)
[2020-11-01] MEDS ORDERED: POLYETHYL GLY 3350 17 GM/DOSE PO PRN (22:28)
[2020-11-01] MEDS ORDERED: ONDANSETRON 4 MG (ODT) TAB PO PRN (22:32)
[2020-11-01] MEDS ORDERED: D50W 25 GM/50 ML SYRINGE IV PRN (22:52)
[2020-11-01] MEDS ORDERED: GLUCAGON 1 MG/VIAL IM PRN (22:52)
[2020-11-01 23:07] LABS: Absolute Lymphocytes (CBC) 0.4 K/uL (0.7-4.9); Basophils % 0.7 % (0-1.3); Lymphocytes % 28.2 % (15.3-44.8)
[2020-11-01 23:15] LABS: Hematocrit 15.7 % (36.0-45.0)
[2020-11-01 23:49] LABS: Protime INR 0.95
[2020-11-01 23:51] LABS: ALT/SGPT 18 U/L (12-78); AST/SGOT 13 U/L (15-37); Albumin 2.9 g/dL (3.4-5.0); BUN Blood Urea Nitrogen 28 mg/dL (7-18); Bicarbonate 26 mmol/L (21-32); Bilirubin Direct 0.2 mg/dL (0-0.2); Bilirubin Total 0.5 mg/dL (0.2-1.0); Ferritin 263.7 ng/mL (8-388); Glucose Level 131 mg/dL (74-106); Potassium 4.2 mmol/L (3.5-5.1); Protein, Total 5.4 g/dL (6.4-8.2); Sodium Level 144 mmol/L (136-145)
[2020-11-01 23:52] LABS: Alkaline Phosphatase ND U/L (45-117)
[2020-11-02 02:23] LABS: Blood Morphology Comment NOTED (NOT SEEN); Macrocytosis 2+; Ovalocytes 1+; Platelet Estimate ADEQ; Teardrop Cell 2+
[2020-11-02] MEDS ORDERED: NA CHLORIDE 0.9% 250 ML IV SCH (03:04)
[2020-11-02] MEDS ORDERED: NA CHLORIDE 0.9% 250 ML ONE ×2 (03:33→10:19)
[2020-11-02] MEDS ORDERED: ALPRAZOLAM 0.25 MG PO PRN (06:49)
[2020-11-02] MEDS ORDERED: INSULIN GLARGINE HUM REC ANLOG 100 UNIT/ML SQ SCH (07:00)
[2020-11-02] MEDS ORDERED: NITROGLYCERIN 0.4 MG PO SCH (07:00)
[2020-11-02] MEDS: INSULIN -REGULAR HUMAN 50 UNIT/0.5 ML ML SQ SCH ×3 (07:30→16:30)
[2020-11-02 07:52] LABS: Magnesium 2.4 mg/dL (1.8-2.4)
[2020-11-02 07:57] LABS: Absolute Lymphocytes (CBC) 0.4 K/uL (0.7-4.9); Basophils % 0.3 % (0-1.3); Lymphocytes % 36.5 % (15.3-44.8); MPV 8.6 fL (7.6-11.3)
[2020-11-02 08:29] LABS: Hematocrit 19.2 % (36.0-45.0)
[2020-11-02] MEDS ORDERED: ALPHA LIPOIC ACID 600 MG PO SCH (09:00)
[2020-11-02] MEDS ORDERED: SERTRALINE 100 MG PO SCH (09:00)
[2020-11-02] MEDS ORDERED: PREDNISONE 10 MG PO SCH (09:00)
[2020-11-02] MEDS ORDERED: DILTIAZEM CD 180 MG PO SCH (09:00)
[2020-11-02] MEDS ORDERED: HOME MED 1 EA UNK (Rosuvastatin Calcium [Rosuvastatin Calcium] 40 MG Tablet) PO SCH (09:00)
[2020-11-02] MEDS ORDERED: LEVOTHYROXINE 0.075 MG PO SCH (09:00)
[2020-11-02] MEDS ORDERED: FOLIC ACID 1 MG PO SCH (09:00)
[2020-11-02] MEDS ORDERED: HOME MED 1 EA UNK (Vit A/Vit C/Vit E/Zinc/Copper [Preservision Areds Softgel] Capsule) PO SCH (09:00)
[2020-11-02] MEDS ORDERED: HOME MED 1 EA UNK (Omeprazole [Prilosec] 40 MG Capsule.Dr) PO SCH (09:00)
[2020-11-02] MEDS ORDERED: HOME MED 1 EA UNK (Cyclosporine [Restasis] Droperette) EACH EYE SCH (09:00)
[2020-11-02] MEDS ORDERED: PREGABALIN 50 MG PO SCH (09:00)
[2020-11-02] MEDS ORDERED: HOME MED 1 EA UNK (Cholecalciferol (Vitamin D3) [Vitamin D3] 1,000 UNIT Capsule) PO SCH (09:00)
[2020-11-02] MEDS ORDERED: HOME MED 1 EA UNK (Losartan Potassium [Losartan Potassium] 100 MG Tablet) PO SCH (09:00)
[2020-11-02] MEDS ORDERED: CYANOCOBALAMIN 1000MCG/ML INJ IM SCH (09:00)
--- NOTE | 2020-11-02 09:00 | RAD REPORT ---
EXAM DESCRIPTION: RAD - Chest Single View - 11/02/2020 5:23 am CLINICAL HISTORY: anemia, new admit Chest pain. COMPARISON: Chest Single View dated 05/13/2020; Chest Single View dated 05/02/2020; Chest Single View dated 03/30/2020; Chest Pa And Lat (2 Views) dated 10/20/2018 FINDINGS: Portable technique limits examination quality. No significant changes are seen in the aeration of the lungs since the comparative study. The heart i s mildly enlarged in size. No displaced fractures.Aortic atherosclerosis. IMPRESSION: Stable chest since 05/13/2020 study.
[2020-11-02 09:56] LABS: Blood Morphology Comment NOT SEEN (NOT SEEN); Platelet Estimate ADEQ; White Blood Cell Scan 0 (OK)
[2020-11-02 11:45] VITALS: O2SAT 98
[2020-11-02] MEDS ORDERED: D50W 25 GM/50 ML VIAL IV PRN (14:00)
[2020-11-02 17:14] VITALS: BP 143/64; TEMP 96.8
[2020-11-02 18:40] LABS: Hematocrit 31.9 % (36.0-45.0)
--- NOTE | 2020-11-02 20:57 | P.SSS ---
Patient History Date of Service: 11/02/20 Reason for admission: FATIGUE History of Present Illness: [facility] CALLED ME LAST NIGHT TO REPORT HEMOGLOBIN OF 5 GM.. I CALLED HER AT NIGHT BROUGHT HER TO [facility] ADMISSION TO GIVE HER 3 UNTIS OF PACKED RBCS. SHE ALSO HAD WBC COUNT DOWN TO 1,400, B12 LOW , HIGH FERRITIN ON THE LAB REPORT. I GAVE HER A DOSE OF B12 IN HOSPITAL. AFTER 3 UNITS HER HG CAME UP TO 10 GM. SHE ALSO HAS HISTORY OF SEVERE PMR, TEMPORAL ARTERITIS. 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 SHE WILL FU AT OFFICE FOR DAILY B12 INJFECTIONS AND THEN MONTHLY. Allergies meperidine HCl [From Demerol] Allergy (Verified 11/01/20 21:57) Unknown Morphine Allergy (Uncoded 11/01/20 21:57) Unknown Home medications list reviewed: Yes Home Medications: Sertraline [Zoloft*] 100 mg PO DAILY 04/29/19 Alpha Lipoic Acid 1 tab PO DAILY 03/25/20 Cholecalciferol (Vitamin D3) [Vitamin D3] 1 tab PO DAILY 03/25/20 Diltiazem Cd [Cardizem Cd] 120 tab PO DAILY 03/25/20 Levothyroxine [Synthroid*] 0.075 mg PO DAILY 03/25/20 Losartan Potassium 100 mg PO DAILY 03/25/20 Nitroglycerin 1 tab PO SEECOM 03/25/20 Pregabalin [Lyrica*] 75 mg PO TID 03/25/20 predniSONE [Deltasone*] 2 tab PO BID 03/25/20 Alprazolam [Xanax] 0.25 mg pe PO PRN PRN 11/01/20 Cyclosporine [Restasis] 1 drop EACH EYE BID 11/01/20 Folic Acid 1 mg PO DAILY 11/01/20 Insulin Glargine,Hum.rec.anlog [Lantus] 10 units SQ PRN 11/01/20 Omeprazole [Prilosec] 40 mg PO DAILY 11/01/20 Rosuvastatin Calcium 40 mg PO DAILY 11/01/20 Vit A/Vit C/Vit E/Zinc/Copper [Preservision Areds Softgel] 1 each PO QID 11/01/20 - Past Medical/Surgical History Has patient received pneumonia vaccine in the past: No Diabetic: Yes -: Herpes -: Hypothyroidisim -: Hypertension -: High Cholesterol -: Depression -: GERD -: Giant Cell Arteritis -: Kidney Cancer -: Neuropathy -: DM (chemical induced) -: Nephrectomy Right -: Gastric bypass -: Hysterectomy -: Hernia Repair - Family History Father -: Cancer Notes: - Lung Cancer Mother Notes: - Congestive heart failure, Diabetes - Social History Smoking Status: Never smoker Alcohol use: No CD- Drugs: No Caffeine use: No Place of Residence: Home Review of Systems 10-point ROS is otherwise unremarkable General: Weakness Physical Examination - Vital Signs Temperature: 96.8 F Blood Pressure: 143/64 Pulse: 71 Respirations: 16 Pulse Ox (%): 96 - Physical Exam General: Oriented x3, Mild distress HEENT: Atraumatic, PERRLA, Mucous membr. moist/pink, EOMI, Sclerae nonicteric Neck: Supple, 2+ carotid pulse no bruit, No LAD, Without JVD or thyroid abnormality Respiratory: Clear to auscultation bilaterally, Normal air movement Cardiovascular: Regular rate/rhythm, Normal S1 S2 Gastrointestinal: Normal bowel sounds, No tenderness Musculoskeletal: No tenderness Integumentary: No rashes Neurological: Normal gait, Normal speech, Normal strength at 5/5 x4 extr, Normal tone, Normal affect Lymphatics: No axilla or inguinal lymphadenopathy - Studies Laboratory Data (last 24 hrs) 11/02/20 18:26: Hgb 10.2 L D, Hct 31.9 L D 11/02/20 07:26: Sodium 148 H, Potassium 4.0, BUN 28 H, Creatinine 0.77, Glucose 84, Magnesium 2.4 11/02/20 07:26: WBC 1.20 L* D, Hgb 6.0 L*, Hct 19.2 L* D, Plt Count 119 L D 11/01/20 22:19: Sodium 144, Potassium 4.2, BUN 28 H, Creatinine 0.91, Glucose 131 H, Total Bilirubin 0.5, AST 13 L, ALT 18, Alkaline Phosphatase ND 11/01/20 22:19: PT 10.9, INR 0.95, APTT 25.4 11/01/20 22:19: WBC 1.40 L*, Hgb 4.9 L*, Hct 15.7 L*, Plt Count 155 Microbiology Data (last 24 hrs): 11/02/20 16:00 Stool Occult Blood - Final - Diagnosis (Problem(s)) (1) Severe anemia Status: Acute Plan: ABOVE. IT SEEMS NOT RELATED TO IRON STORAGE. B12 IS LOW, AND MTX MAY HAVE ADDED TO ANEMIA. 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 - Disposition Disposition: ROUTINE DISCHARGE Condition: FAIR
[2020-11-06 03:06] LABS: Albumin, (SPE) 3.1 g/dL (3.8-4.8); Alpha-1-Globulins 0.4 g/dL (0.2-0.3); Alpha-2-Globulins 0.8 g/dL (0.5-0.9); Gamma Globulins 0.3 g/dL (0.8-1.7); INTERPRETATION REPORT
== END 2020-11-02 19:53 | disposition home or self-care (01) ==
LOC: INTOOBSV 20:55 → 2ND 20:55
PROVIDERS: ADMIT Internal Medicine; ATTEND Internal Medicine
DX: D64.9 Anemia, unspecified (principal); D70.2 Other drug-induced agranulocytosis; E53.8 Deficiency of other specified B group vitamins; Z98.84 Bariatric surgery status; E03.9 Hypothyroidism, unspecified; I10 Essential (primary) hypertension; Z20.822 Contact with and (suspected) exposure to COVID-19; E78.00 Pure hypercholesterolemia, unspecified; F32.9 Major depressive disorder, single episode, unspecified; K21.9 Gastro-esophageal reflux disease without esophagitis; M31.5 Giant cell arteritis with polymyalgia rheumatica; Z85.528 Personal history of other malignant neoplasm of kidney; E09.40 Drug or chemical induced diabetes mellitus with neurological complications with diabetic neuropathy, unspecified
CPT/HCPCS: 36430; 93005; 85025 ×2; 80048 ×2; 36415 ×2; 86900; 83735; 86850; 82274; 85610; 86901; 82947 ×4; 80076; 85730; 85018; 85014; 82728; 86038; 84165; 71045; U0003; J3420; P9016 ×3; J7050 ×2; G0378

== ENCOUNTER 2021-09-19 09:57 | Observation (INO) | payer OTHER ==
--- OUTSIDE RECORDS SUMMARY | 2021-09-19 10:01 | XMS REPORT | Continuity of Care Document ---
:1940 Author Organization [facility] t Address [address] [place] [address] Dr. Benítez [address] [place] [address] Care Team Providers Name Role Phone PRISCILLA AGUIRRE Attending Clinician Unavailable DIOMEDES Attending Clinician Unavailable KENYON Attending Clinician Unavailable PRISCILLA AGUIRRE Admitting Clinician Unavailable DIOMEDES Admitting Clinician Unavailable KENYON Admitting Clinician Unavailable Tello CRAWFORD Admitting Clinician Unavailable HA MCKEON Admitting Clinician Unavailable Payers Payer Name Policy Type Policy Number Effective Date Expiration Date S ource UNITED MEDICARE [id number] 2019 O 00:00:00 CDC REVIEW [id number] 2020 00:00:00 Problems This patient has no known problems. Allergies, Adverse Reactions, Alerts Allergy Allergy Status Severity Reaction(s) Onset Inactive Treating Comm ents Source Name Type Date Date Clinician MEPERIDI Allergy Active Other 2019[facility] MORPHINE Allergy Active Low Rash 2019-[address] [facility] NO KNOWN Allergy Active [facility] ALLERGIE S Medications This patient has no known medications. Vital Signs Vital Name Observation Time Observation Value Comments Source HEIGHT 2020-05-14 00:00:00 152.4 cm WEIGHT 2020-05-14 00:00:00 60.782 kg HEIGHT 2020-05-02 00:00:00 152.4 cm WEIGHT 2020-05-02 00:00:00 61.236 kg HEIGHT 2020-04-21 00:00:00 152.4 cm WEIGHT 2020-04-21 00:00:00 59.1 kg HEIGHT 2020-03-31 00:00:00 152.4 cm WEIGHT 2020-03-31 00:00:00 66.996 kg HEIGHT 2020-05-14 00:00:00 152.4 cm WEIGHT 2020-05-14 00:00:00 60.782 kg HEIGHT 2020-05-02 00:00:00 152.4 cm WEIGHT 2020-05-02 00:00:00 61.236 kg HEIGHT 2020-04-21 00:00:00 152.4 cm WEIGHT 2020-04-21 00:00:00 59.1 kg HEIGHT 2020-03-31 00:00:00 152.4 cm WEIGHT 2020-03-31 00:00:00 66.996 kg Procedures This patient has no known procedures. Encounters Start End Encounter Admission Attending Care Care Encounter Source Date/Time Date/Time Type Type Clinicians Facility Department ID 2021-05-23 Inpatient ER [facility] [id number] SLE 08:28:59 JAIME 2021-05-23 Inpatient ER [facility] [id number] SLE 07:11:14 , [facility] Med 2020-04-21 Inpatient ER [facility] Surgery [id number] SLE 17:35:00 KATHRIN 2020-03-31 Inpatient ER [facility] Inter Rad [id number] SLE 07:46:00 JAIME Results Test Description Test Time Test Comments Results Result Comments Source POCT-GLUCOSE METER 2020-05-15 12:07:00 Test Item Value Reference Range Interpretation Comme [facility] POC-GLUCOSE METER (BEAKER) 145 mg/dL 70-110 H : TESTED AT [address] (test code = 1538) [place], [address]: Retail Director/Techni sebastian ID = [id number] for JAYSON OVIEDO SARS-COV2/RT-PCR ([facility])2020-05-15 10:07:00 Test Item Value Reference Range Interpretation Comments SARS-COV2/RT-PCR (test Negative Not Detected, Negative, code = 8014155) See external report for linked test SARS-COV-2 PERFORMING LAB [facility] ROLY (test code = 1380232) Negative result for this test determines that [...] 564(g) of the Act.Fact Sheet for Healthcare Providers:https://www.[employer]/sites/default/files/product/documents/Fact_Shee c_UN_Tddnpaelw_Jbqj_EHCO-WgT-5.pdfFact Sheet for Healthcare Patients:https://www.[employer]/sites/default/files/product/ documents/Egvd_Opxtc_Vcxyhkoa_Ehks_DZZR-QpN-8.pdfPerforming Laboratory:[facility], [place] [address]PZWX-ZNEXJEL METER 2020-05-15 07:57:00 Test Item Value Reference Range Interpretation Comments POC-GLUCOSE METER 145 mg/dL 70-110 H : TESTED A T [facility] 6720 ([place]) (test code = [place], 1538) [address]: Retail Director/Techni sebastian ID = [id number] for RUDDY STUBBS BASIC METABOLIC [id number] 06:06:00 Test Item Value Reference Range Interpretation [...] 697) EGFR (BEAKER) (test 75 mL/min/1.73 ESTIMA JENNY GFR IS code = 1092) sq m NOT ACCURATE CREATININE CLEARANCE IN PREDICTING GLOMERULAR FILTRATION RATE . ESTIMATED GFR I S NOT APPLICABLE FOR DIALYSIS PATIEN TS. Retail Director ID - PIAYA LSpecimen slightly ictericCBC (HEMOGRAM ONLY)2020-05-15 05:38:00 Test Item Value Reference [...] WBC 0-0 (test code = 413) POCT-GLUCOSE [id number] 21:59:00 Test Item Value Reference Range Interpretation Comments POC-GLUCOSE METER 129 mg/dL 70-110 H : TESTED A T [facility] 6720 (BEAKER) (test code = [facility], 1538) [address]: Retail Director/Techni sebastian ID = [id number] for THAD ENRIQUEZ POCT-GLUCOSE [id number] 21:20:00 Test Item Value Reference Range Interpretation Comments POC-GLUCOSE METER 68 mg/dL 70-110 L : TESTED A T [facility] 6720 (BEAKER) (test code = [facility], 1538) [address]: Retail Director/Techni sebastian ID = [id number] for THAD ARROYO HEMOGLOBIN AND [id number] 16:58:00 Test Item Value Reference Range Interpretation Comments HEMOGLOBIN (BEAKER) (test code = 12.1 GM/DL 11.2-15.7 410) HEMATOCRIT (BEAKER) (test code = 36.7 % 34.1-44.9 411) Retail Director ID - [id number] 10:03:00 Test Item Value Reference Range Interpretation Comments HEMOGLOBIN A1C (BEAKER) (test code = 8.4 % 4.3-6.1 H 368) HEMOGLOBIN AND [id number] 09:18:00 Test Item Value Reference Range Interpretation Comments HEMOGLOBIN (BEAKER) (test code = 12.8 GM/DL 11.2-15.7 410) HEMATOCRIT (BEAKER) (test code = 38.7 % 34.1-44.9 411) Retail Director ID - [id number] AND PARASITE [id number] 12:20:00 Test Item Value Reference Range Interpretation [...] (BEAKER) (test seen seen code = 248) BLOOD [id number] 08:00:00 Test Item Value Reference Range Interpretation Comments CULTURE (BEAKER) (test No growth in 5 days code = 1095) BLOOD [id number] 08:00:00 Test Item Value Reference Range Interpretation Comments CULTURE (BEAKER) (test No growth in 5 days code = 1095) STOOL CULTURE + SHIGA [id number] 11:02:00 Test Item Value Reference Range Interpretation Comments CULTURE (BEAKER) No Salmonella, Shigella (test code = 1095) or Campylobacter isolated POCT-GLUCOSE [id number] 12:51:00 Test Item Value Reference Range Interpretation Comments POC-GLUCOSE METER 255 mg/dL 70-110 H : Notified RN/MD: ([facility]) (test code = TESTED AT [place] [address] 1538) SADAF [facility], [address]: Retail Director/Techni sebastian ID = [id number] for AN KAITLIN POLLARD POCT-GLUCOSE [id number] 08:22:00 Test Item Value Reference Range Interpretation Comments POC-GLUCOSE METER 197 mg/dL 70-110 H : TESTED A T [facility] 67 ([facility]) (test code = JEANE Leann [facility], 1538) [address]: Retail Director/Techni sebastian ID = [id number] for AN KAITLIN POLLARD BASIC METABOLIC [id number] 05:46:00 Test Item Value Reference Range Interpretation [...] 697) EGFR (BEAKER) (test 77 mL/min/1.73 ESTIMA JENNY GFR IS code = 1092) sq m NOT ACCURATE CREATININE CLEARANCE IN PREDICTING GLOMERULAR FILTRATION RATE . ESTIMATED GFR I S NOT APPLICABLE FOR DIALYSIS PATIEN TS. Retail Director ID - EVELIA MSpecimen slightly ictericPOCT-GLUCOSE [id number] 22:22:00 Test Item Value Reference Range Interpretation Comments POC-GLUCOSE METER 323 mg/dL 70-110 H : TESTED A T [facility] 6720 (BEAKER) (test code = [facility], 1538) [address]: Retail Director/Techni sebastian ID = [id number] for Tai Lara POCT-GLUCOSE [id number] 17:46:00 Test Item Value Reference Range Interpretation Comments POC-GLUCOSE METER 245 mg/dL 70-110 H : TESTED A T [facility] 6720 (BEAKER) (test code = [facility], 1538) [address]: Retail Director/Techni sebastian ID = [id number] for BR OWN, VAZQUEZ POCT-GLUCOSE [id number] 12:12:00 Test Item Value Reference Range Interpretation Comments POC-GLUCOSE METER 317 mg/dL 70-110 H : TESTED A T [facility] 6720 (BEAKER) (test code = [facility] [employer] [facility], 1538) [address]: Retail Director/Techni sebastian ID = [id number] for BR OWN, VAZQUEZ SHIGA TOXIN [id number] 10:32:00 Test Item Value Reference Range Interpretation Comments SHIGA TOXIN 1 (BEAKER) (test Not detected Not detected code = 2177) SHIGA TOXIN 2 (BEAKER) (test Not detected Not detected code = 2179) STOOL PATH [id number] 10:15:00 Test Item Value Reference Range Interpretation Comments PATHOGEN EXAM CHARGED (BEAKER) (test Done code = 2381) POCT-GLUCOSE [id number] 08:57:00 Test Item Value Reference Range Interpretation Comments POC-GLUCOSE METER 205 mg/dL 70-110 H : TESTED A T [facility] 6720 (BEAKER) (test code = [facility], 1538) [address]: Retail Director/Techni sebastian ID = [id number] for BR OWN, VAZQUEZ HEMOGLOBIN [id number] 08:19:00 Test Item Value Reference Range Interpretation Comments HEMOGLOBIN A1C (BEAKER) (test code = 8.4 % 4.3-6.1 H 368) BASIC METABOLIC [id number] 07:56:00 Test Item Value Reference Range Interpretation [...] 697) EGFR (BEAKER) (test 77 mL/min/1.73 ESTIMA JENNY GFR IS code = 1092) sq m NOT ACCURATE CREATININE CLEARANCE IN PREDICTING GLOMERULAR FILTRATION RATE . ESTIMATED GFR I S NOT APPLICABLE FOR DIALYSIS PATIEN TS. Retail Director ID - NEFTALY RAYOpecimedorys slightly ictericPOCT-GLUCOSE [id number] 22:55:00 Test Item Value Reference Range Interpretation Comments POC-GLUCOSE METER 229 mg/dL 70-110 H : TESTED A T [facility] 6720 (BEAKER) (test code = [facility], 1538) [address]: Retail Director/Techni sebastian ID = [id number] for Karla Jackson POCT-GLUCOSE [id number] 17:45:00 Test Item Value Reference Range Interpretation Comments POC-GLUCOSE METER 306 mg/dL 70-110 H : TESTED A T [facility] 6720 (BEAKER) (test code = [facility], 1538) [address]: Retail Director/Techni sebastian ID = [id number] for DI EPSTEIN POCT-GLUCOSE [id number] 11:59:00 Test Item Value Reference Range Interpretation Comments POC-GLUCOSE METER 150 mg/dL 70-110 H : TESTED A T [facility] 6720 (BEAKER) (test code = JEANE Noriega [place], 1538) [address]: Retail Director/Techni sebastian ID = [id number] for DI EPSTEIN [id number] 10:18:00 Test Item Value Reference Range Interpretation Comments POTASSIUM (BEAKER) 4.9 meq/L 3.5-5.1 Specimen slightly (test code = 379) hemolyzed Retail Director ID - EVELIA MPOCT-GLUCOSE [id number] 08:04:00 Test Item Value Reference Range Interpretation Comments POC-GLUCOSE METER 156 mg/dL 70-110 H : TESTED A T [facility] 6720 (BEAKER) (test code = JEANE Noriega [place], 1538) [address]: Retail Director/Techni sebastian ID = [id number] for DI EPSTEIN BASIC METABOLIC [id number] 05:51:00 Test Item Value Reference Range Interpretation [...] 697) EGFR (BEAKER) (test 80 mL/min/1.73 ESTIMA JENNY GFR IS code = 1092) sq m NOT ACCURATE CREATININE CLEARANCE IN PREDICTING GLOMERULAR FILTRATION RATE . ESTIMATED GFR I S NOT APPLICABLE FOR DIALYSIS PATIEN TS. Retail Director ID - NEFTALY LSpecimen slightly ictericC. DIFFICILE GDH [id number] 05:03:00 Test Item Value Reference Range Interpretation Comments CDT TOXIN (test code Negative Negative = [id number]) CDT GDH ANTIGEN Positive Negative A C. difficile present but (test code = toxin not detec jenny. [id number]) Indicates colon ization with non-toxige faith strain or level of tox in below detectable leve ls. No need for enteri c isolation. Maxwell atment is rarely needed ( only when strong clinical suspicion for Clostridium difficile infection) Testing performed by [facility] [employer] Rapid Cassette Assay. For GDH, published sensitivity of the assay is 98.7% compared to cytotoxicity testing. For Toxin AB, published sensitivity is 87.8% and specificity 99.4% compared to cytotoxicity testing.Verification of kit performance was done by the [facility] prior to clinical use.FECAL [id number] 00:34:00 Test Item Value Reference Range Interpretation Comments FECAL LEUKOCYTES No fecal leukocytes No fecal leukocytes (BEAKER) (test code = seen seen 992) POCT-GLUCOSE [id number] 22:14:00 Test Item Value Reference Range Interpretation Comments POC-GLUCOSE METER 224 mg/dL 70-110 H : TESTED A T [facility] 6720 (BEAKER) (test code = [facility], 1538) [address]: Retail Director/Techni sebastian ID = [id number] for SHAHZAD BRUCE POCT-GLUCOSE [id number] 14:51:00 Test Item Value Reference Range Interpretation Comments POC-GLUCOSE METER 120 mg/dL 70-110 H : TESTED A T [facility] 6720 (BEAKER) (test code = [facility], 1538) [address]: Retail Director/Techni sebastian ID = [id number] for NCHEZ, MIYA BASIC METABOLIC [id number] 11:35:00 Test Item Value Reference Range Interpretation [...] 697) EGFR (BEAKER) (test 72 mL/min/1.73 ESTIMA JENNY GFR IS code = 1092) sq m NOT ACCURATE CREATININE CLEARANCE IN PREDICTING GLOMERULAR FILTRATION RATE . ESTIMATED GFR I S NOT APPLICABLE FOR DIALYSIS PATIEN TS. Retail Director ID - EVELIA MSpecimen slightly [id number] 11:32:00 Test Item Value Reference Range Interpretation Comments MAGNESIUM (BEAKER) (test code = 1.9 mg/dL 1.6-2.6 627) Retail Director ID - EVELIA MHEPATIC FUNCTION [id number] 11:32:00 Test Item Value Reference Range Interpretation [...] code = 107 U/L 6-55 H 347) Retail Director ID - EVELIA Davilaecimen slightly ictericPROTHROMBIN [id number] 07:18:00 Test Item Value Reference Range Interpretation [...] mechanical heart valves.CBC W/PLT COUNT & AUTO [id number] 07:11:00 Test Item Value Reference Range Interpretation [...] 0-1 PERCENT (BEAKER) (test code = 2801) BLOOD [id number] 23:00:00 Test Item Value Reference Range Interpretation Comments CULTURE (BEAKER) (test No growth in 5 days code = 1095) BLOOD [id number] 23:00:00 Test Item Value Reference Range Interpretation Comments CULTURE (BEAKER) (test No growth in 5 days code = 1095) PROTEIN ELECTROPHORESIS, [id number] 13:55:00 Test Item Value Reference Range Interpretation [...] (BEAKER) (test code = mild acute inflammation 261) coupled with urine protein loss and/or protein-losing enteropathy. No monoclonal bands detected. [id number] Yudith Emanuel MD (BEAKER) (test code = (electronic signature) 2616) PROTEIN TOTAL SERUM, 5.0 gm/dL 6.0-8.3 L SPEP (BEAKER) (test code = 2660) Retail Director ID - EVELIA MHEPATITIS PANEL, [id number] 17:11:00 Test Item Value Reference Range Interpretation Comments HEPATITIS A IGM ANTIBODY (BEAKER) Nonreactive Nonreactive (test code = 498) HEPATITIS B CORE IGM ANTIBODY Nonreactive Nonreactive (BEAKER) (test code = 645) HEPATITIS C ANTIBODY (BEAKER) Nonreactive Nonreactive (test code = 367) HEPATITIS B SURFACE ANTIGEN (2) Nonreactive Nonreactive (BEAKER) (test code = 2585) Retail Director ID - DBPOCT-GLUCOSE [id number] 16:42:00 Test Item Value Reference Range Interpretation Comments POC-GLUCOSE METER 236 mg/dL 70-110 H : TESTED A T [facility] 6720 (BEAKER) (test code = JEANE Norie[place], 1538) [address]: Retail Director/Techni sebastian ID = [id number] for Giulia Wade POCT-GLUCOSE [id number] 12:36:00 Test Item Value Reference Range Interpretation Comments POC-GLUCOSE METER 276 mg/dL 70-110 H : TESTED A T [facility] 6720 (BEAKER) (test code = JEANE Noriega [facility], 1538) [address]: Retail Director/Techni sebastian ID = [id number] for Giulia Wade HEMOGLOBIN [id number] 12:07:00 Test Item Value Reference Range Interpretation Comments HEMOGLOBIN A1C (BEAKER) (test code = 8.0 % 4.3-6.1 H 368) COMPREHENSIVE METABOLIC [id number] 11:48:00 Test Item Value Reference Range Interpretation [...] S NOT APPLICABLE FOR DIALYSIS PATIEN TS. Retail Director ID - SUSI MSpecimen moderately ictericLIPID [id number] 11:48:00 Test Item Value Reference Range Interpretation [...] Borderline 130-159 High 160-189 Very High >=190 Retail Director ID - SUSI MSpecimen moderately ictericTSH/FREE T4 IF [id number] 10:29:00 Test Item Value Reference Range Interpretation Comments THYROID STIMULATING HORMONE 3.805 uIU/mL 0.350-4.940 (BEAKER) (test code = 772) Retail Director ID - [id number] 09:30:00 Test Item Value Reference Range Interpretation Comments FERRITIN (BEAKER) (test code = 292.76 ng/mL 5.00-275.00 H 361) Retail Director ID - AAHAMIDVITAMIN B12 AND [id number] 09:30:00 Test Item Value Reference Range Interpretation Comments VITAMIN B12 (BEAKER) (test code = 1155 pg/mL 213-816 H 774) FOLATE (BEAKER) (test code = 362) 8.50 ng/mL >=7.00 Retail Director ID - AAHAMIDPOCT-GLUCOSE [id number] 08:10:00 Test Item Value Reference Range Interpretation Comments POC-GLUCOSE METER 197 mg/dL 70-110 H : TESTED A T [facility] 6720 ([place]) (test code = [place], 1538) [address]: Retail Director/Techni sebastian ID = [id number] for Giulia Wade MR, BRAIN, [id number] 02:52:00Unlisted Reason for Exam - Click Yes [...] Rao Keating MDReport Verified Date/Time: 04/24/2020 02:52:33 U/S, ABDOMINAL, [id number] 23:25:00Abdomen limited area? Add comment if clarification is needed.- >LiverReason for exam:->elevatedlftsFINAL REPORT U/S, ABDOMINAL, LIMITED CLINICAL [...] Rao Keating MDReport Verified Date/Time: 04/23/2020 23:25:58 POCT-GLUCOSE [id number] 23:17:00 Test Item Value Reference Range Interpretation Comments POC-GLUCOSE METER 206 mg/dL 70-110 H : TESTED A T [facility] 6720 ([facility]) (test code = [facility], 1538) [address]: Retail Director/Techni sebastian ID = [id number] for LAVONNE MUSTAFA POCT-GLUCOSE [id number] 17:40:00 Test Item Value Reference Range Interpretation Comments POC-GLUCOSE METER 249 mg/dL 70-110 H : Notified RN/MD: ([facility]) (test code = TESTED AT [facility] 6720 1538) [facility], [address]: Retail Director/Techni sebastian ID = [id number] for Vi Jazmin gambino CT, BRAIN, WITHOUT [id number] 10:32:00Unlisted Reason for Exam - Click Yes [...] recommended for further evaluation. Signed: Derick Rangel MDReport Verified Date/Time: 04/23/2020 10:32:40 CBC W/PLT COUNT & AUTO DIFFERENTIAL 2020-04-23 05:31:00 [...] (BEAKER) (test code = 2801) BASIC METABOLIC [id number] 05:03:00 Test Item Value Reference Range Interpretation [...] S NOT APPLICABLE FOR DIALYSIS PATIEN TS. Retail Director ID - EVELIA Davilaecimen moderately ictericHEPATIC FUNCTION [id number] 05:03:00 Test Item Value Reference Range Interpretation [...] Specimen moderately (test code = 347) hemolyzed Retail Director ID - EVELIA Leaimedorys moderately ictericPOCT-GLUCOSE [id number] 04:01:00 Test Item Value Reference Range Interpretation Comments POC-GLUCOSE METER 193 mg/dL 70-110 H : TESTED A T [facility] 6720 (BEAKER) (test code [facility], = 1538) [address]: Retail Director/Techni sebastian ID = [id number] for RUSSELL , ESME POCT-GLUCOSE [id number] 21:04:00 Test Item Value Reference Range Interpretation Comments POC-GLUCOSE METER 198 mg/dL 70-110 H : TESTED A T [facility] 6720 (BEAKER) (test code = [facility], 1538) [address]: Retail Director/Techni sebastian ID = [id number] for Cathy hnson, Alla POCT-GLUCOSE [id number] 16:17:00 Test Item Value Reference Range Interpretation Comments POC-GLUCOSE METER 266 mg/dL 70-110 H : TESTED A T [facility] 6720 ([place]) (test code = [place], 1538) [address]: Retail Director/Techni sebastian ID = [id number] for BRUCE DUMONT SARS-COV2/RT-PCR ([facility])2020-04-22 14:59:00 Test Item Value Reference Range Interpretation Comments SARS-COV2/RT-PCR (test Negative Not Detected, Negative, code = 1974374) See external report for linked test SARS-COV-2 PERFORMING LAB [facility] ROLY (test code = 5942072) Negative result for this test determines that [...] 564(g) of the Act.Fact Sheet for Healthcare Providers:https://www.[employer]/sites/default/files/product/documents/Fact_Shee l_JT_Qhpeceyya_Stek_AZGQ-RyD-5.pdfFact Sheet for Healthcare Patients:https://www.[employer]/sites/default/files/product/ documents/Qzjd_Mogea_Jhytohvv_Mrjd_KCCB-IyU-4.pdfPerforming Laboratory:[facility], [place] [address]GFWA-GVDIOCW METER 2020-04-22 12:21:00 Test Item Value Reference Range Interpretation Comments POC-GLUCOSE METER 210 mg/dL 70-110 H : TESTED A T [facility] 6720 (BEAKER) (test code = JEANE Noriega [facility], 1538) [address]: Retail Director/Techni sebastian ID = [id number] for BRUCE DUMONT [id number] 11:00:00 Test Item Value Reference Range Interpretation Comments PHOSPHORUS (BEAKER) (test code = 3.1 mg/dL 2.3-4.7 604) Retail Director ID - EVELIA [id number] 11:00:00 Test Item Value Reference Range Interpretation Comments MAGNESIUM (BEAKER) (test code = 1.9 mg/dL 1.6-2.6 627) Retail Director ID - EVELIA MBASIC METABOLIC [id number] 11:00:00 Test Item Value Reference Range Interpretation [...] S NOT APPLICABLE FOR DIALYSIS PATIEN TS. Retail Director ID - EVELIA MSpecimen moderately ictericHEPATIC FUNCTION [id number] 11:00:00 Test Item Value Reference Range Interpretation [...] code = 112 U/L 6-55 H 347) Retail Director ID - EVELIA MSpecimedorys moderately ictericPOCT-GLUCOSE [id number] 08:40:00 Test Item Value Reference Range Interpretation Comments POC-GLUCOSE METER 187 mg/dL 70-110 H : TESTED A T [facility] 6720 (BEAKER) (test code = [place], 1538) [address]: Retail Director/Techni sebastian ID = [id number] for BRUCE DUMONT CBC W/PLT COUNT & AUTO [id number] 07:04:00 Test Item Value Reference Range Interpretation [...] PERCENT (BEAKER) (test code = 2801) POCT-GLUCOSE [id number] 23:41:00 Test Item Value Reference Range Interpretation Comments POC-GLUCOSE METER 211 mg/dL 70-110 H : TESTED A T [facility] 6720 (BEAKER) (test code = [place], 1538) [address]: Retail Director/Techni sebastian ID = [id number] for RALPH REDDINGDorys SHABBIR URINALYSIS W/ [id number] 21:58:00 Test Item Value Reference Range Interpretation [...] = 516) SOURCE(BEAKER) (test code = 2795) Retail Director ID - [auto]Retail Director ID - hankFUNGUS CULTURE + [id number] 18:07:00 Test Item Value Reference Range Interpretation Comments CULTURE (BEAKER) A 3+ Lorri albicans (test code = 1095) FUNGUS SMEAR No fungi seen (BEAKER) (test code = 1406) ANAEROBIC [id number] 18:52:00 Test Item Value Reference Range Interpretation Comments CULTURE (BEAKER) (test No anaerobes isolated code = 1095) CBC W/PLT COUNT & AUTO [id number] 06:39:00 Test Item Value Reference Range Interpretation [...] (BEAKER) (test code = 2801) COMPREHENSIVE METABOLIC [id number] 06:17:00 Test Item Value Reference Range Interpretation [...] S NOT APPLICABLE FOR DIALYSIS PATIEN TS. Retail Director ID - EVELIA [facility]OL[facility] [id number] 05:24:00 Test Item Value Reference Range Interpretation [...] S NOT APPLICABLE FOR DIALYSIS PATIEN TS. Retail Director ID - EDASIWOUND CULTURE + GRAM [id number] 10:29:00 Test Item Value Reference Range Interpretation [...] <1+ budding yeast (BEAKER) (test code = 121195) CBC W/PLT COUNT & AUTO [id number] 05:33:00 Test Item Value Reference Range Interpretation [...] (BEAKER) (test code = 2801) COMPREHENSIVE METABOLIC [id number] 05:08:00 Test Item Value Reference Range Interpretation [...] S NOT APPLICABLE FOR DIALYSIS PATIEN TS. Retail Director ID - EDASISpecimen slightly ictericCOMPREHENSIVE METABOLIC PANEL [...] S NOT APPLICABLE FOR DIALYSIS PATIEN TS. Retail Director ID - PIAYA LSpecimen slightly ictericCBC W/PLT COUNT & AUTO [id number] 05:03:00 Test Item Value Reference Range Interpretation [...] (BEAKER) (test code = 2801) CT, DRAINAGE, [id number] 12:12:00Reason for exam:->Diverticulitis with increasing size of abscessFINAL REPORT PROCEDURE: CT, DRAINAGE, ABDOMINAL DOSE REDUCTION: The examination was performed according to departmental dose-optimization program which includes automated exposure control, adjustment of the mA and/or kV according to patient size and/or use of iterative reconstruction technique. HISTORY: Diverticulitis with increasing size of abscess Retail Director: Bam Ko MD Moderate sedation: See nursing [...] dilated using serial dilators. Subsequently a 8 [place]ian all-purpose drainage catheter was advanced into the [...] MDReport Verified Date/Time: 04/01/2020 12:12:30 Reading Location: [address] Transitional Reading Room CBC W/PLT COUNT & AUTO [id number] 06:34:00 Test Item Value Reference Range Interpretation [...] 0-1 PERCENT (BEAKER) (test code = 2801) [id number] 06:33:00 Test Item Value Reference Range Interpretation Comments MAGNESIUM (BEAKER) 2.0 mg/dL 1.6-2.6 Specimen slightly (test code = 627) hemolyzed Retail Director ID - EVELIA [id number] 06:33:00 Test Item Value Reference Range Interpretation Comments PHOSPHORUS (BEAKER) 2.0 mg/dL 2.3-4.7 L Specimen slightly (test code = 604) hemolyzed Retail Director ID - EVELIA MCOMPREHENSIVE METABOLIC [id number] 06:33:00 Test Item Value Reference Range Interpretation [...] S NOT APPLICABLE FOR DIALYSIS PATIEN TS. Retail Director TIARA - EVELIA MSpecimen slightly ictericCOMPREHENSIVE METABOLIC PANEL [...] S NOT APPLICABLE FOR DIALYSIS PATIEN TS. Retail Director ID - MICHELL CSpecimen slightly [id number] 09:49:00 Test Item Value Reference Range Interpretation Comments MAGNESIUM (BEAKER) (test code = 2.1 mg/dL 1.6-2.6 627) Retail Director ID - MICHELL CLACTIC ACID, [id number] 09:45:00 Test Item Value Reference Range Interpretation Comments LACTATE BLOOD VENOUS (2) (BEAKER) 1.05 mmol/L 0.50-2.20 (test code = 2872) Retail Director ID - AUG [id number] 09:35:00 Test Item Value Reference Range Interpretation [...] mechanical heart valves.CBC W/PLT COUNT & AUTO [id number] 09:26:00 Test Item Value Reference Range Interpretation [...] % 0-1 PERCENT (BEAKER) (test code = 5507)
[2021-09-19 11:18] LABS: Absolute Lymphocytes (CBC) 0.8 K/uL (0.7-4.9); Hematocrit 26.6 % (36.0-45.0); Lymphocytes % 33.4 % (15.3-44.8); MPV 8.2 fL (7.6-11.3); RBC Red Blood Cell Count 2.94 M/uL (3.86-4.86)
[2021-09-19 11:58] LABS: BUN Blood Urea Nitrogen 28 mg/dL (7-18); Bicarbonate 28 mmol/L (21-32); Ferritin 731.6 ng/mL (8-388); Glucose Level 112 mg/dL (74-106); Potassium 3.6 mmol/L (3.5-5.1); Sodium Level 141 mmol/L (136-145); Transferrin 167 mg/dL (200-360)
[2021-09-19 12:25] LABS: Anisocytosis 2+; Blood Morphology Comment NOTED (NOT SEEN); Macrocytosis 1+; Platelet Estimate ADEQ
[2021-09-19] MEDS ORDERED: NA CHLORIDE 0.9% 250 ML ONE ×2 (14:21→17:12)
--- NOTE | 2021-09-19 18:20 | P.SSS ---
Patient History Date of Service: 09/19/21 Reason for admission: ANEMIA. HG 7.0 WITH [facility]. History of Present Illness: TUNDE HAS MANY MEDICAL ISSUES. SHE HAS PMR. TA, CHR HEADACHES, HTN, DEPRESSION. SHE DOES NOT TAKE ANY NSAIDS. HER HG WAS 7 GM WITH [facility]. I ASKED FOR TWO UNITS OF PACKED RBCS SHE IS SYMPTOMATIC. SHE HAS NO ACUTE BLEEDING. Allergies meperidine HCl [From Demerol] Allergy (Verified 11/01/20 21:57) Unknown Morphine Allergy (Uncoded 11/01/20 21:57) Unknown Home medications list reviewed: Yes Home Medications: Sertraline [Zoloft*] 100 mg PO DAILY 04/29/19 Alpha Lipoic Acid 1 tab PO DAILY 03/25/20 Cholecalciferol (Vitamin D3) [Vitamin D3] 1 tab PO DAILY 03/25/20 Diltiazem Cd [Cardizem Cd] 120 tab PO DAILY 03/25/20 Levothyroxine [Synthroid*] 0.075 mg PO DAILY 03/25/20 Losartan Potassium 100 mg PO DAILY 03/25/20 Nitroglycerin 1 tab PO SEECOM 03/25/20 Pregabalin [Lyrica*] 75 mg PO TID 03/25/20 predniSONE [Deltasone*] 2 tab PO BID 03/25/20 Alprazolam [Xanax] 0.25 mg pe PO PRN PRN 11/01/20 Cyclosporine [Restasis] 1 drop EACH EYE BID 11/01/20 Folic Acid 1 mg PO DAILY 11/01/20 Insulin Glargine,Hum.rec.anlog [Lantus] 10 units SQ PRN 11/01/20 Omeprazole [Prilosec] 40 mg PO DAILY 11/01/20 Rosuvastatin Calcium 40 mg PO DAILY 11/01/20 Vit A/Vit C/Vit E/Zinc/Copper [Preservision Areds Softgel] 1 each PO QID 11/01/20 - Past Medical/Surgical History Diabetic: Yes -: Herpes -: Hypothyroidisim -: Hypertension -: High Cholesterol -: Depression -: GERD -: Giant Cell Arteritis -: Kidney Cancer -: Neuropathy -: DM (chemical induced) -: Nephrectomy Right -: Gastric bypass -: Hysterectomy -: Hernia Repair - Family History Father -: Cancer Notes: - Lung Cancer Mother Notes: - Congestive heart failure, Diabetes - Social History Alcohol use: No CD- Drugs: No Caffeine use: No Review of Systems 10-point ROS is otherwise unremarkable General: Weakness Physical Examination - Physical Exam General: Oriented x3, Mild distress HEENT: Atraumatic, PERRLA, Mucous membr. moist/pink, EOMI, Sclerae nonicteric Neck: Supple, 2+ carotid pulse no bruit, No LAD, Without JVD or thyroid abnormality Respiratory: Clear to auscultation bilaterally, Normal air movement Cardiovascular: Regular rate/rhythm, Normal S1 S2 Gastrointestinal: Normal bowel sounds, No tenderness Musculoskeletal: No tenderness Integumentary: No rashes Neurological: Normal gait, Normal speech, Normal strength at 5/5 x4 extr, Normal tone, Normal affect Lymphatics: No axilla or inguinal lymphadenopathy - Diagnosis (Problem(s)) (1) Anemia Current Visit: Yes Status: Chronic Plan: TRANSFUSE BLOOD. FERRITIN IS NORMAL. SHE MAY HAVE BONE MARROW ISSUES WITH WBC- IS LOW AND HG LOW. I WILL SEND HER TO OUTSIDE DEALER SALES REPRESENTATIVE AFTER NEXT VISIT AT OFFICE. Qualifiers: Anemia type: other cause - Disposition Disposition: ROUTINE DISCHARGE
--- NOTE | 2021-09-19 20:15 | ER ---
Nurse's Notes [facility] Name: Radha Ocampo Age: 81 yrs Sex: Female : 1940 Arrival Date: 09/19/2021 Time: 10:25 Bed Direct Admit Private MD: Diagnosis: Anemia, unspecified Presentation: 09/19 10:31 Chief complaint: Patient states: I was sent over by Dr Roman who advised me my Hgb jg9 was 7. Patient has had multiple scopes and tests to determine the source but efforts have been unsuccessful. Grace Mcfarland is the GI specialist. Coronavirus screen: Vaccine status: Patient reports receiving the 2nd dose of the covid vaccine. Ebola Screen: Patient negative for fever greater than or equal to 101.5 degrees Fahrenheit, and additional compatible Ebola Virus Disease symptoms Patient denies exposure to infectious person. Patient denies travel to an Ebola-affected area in the 21 days before illness onset. Initial Sepsis Screen: Does the patient meet any 2 criteria? No. Patient's initial sepsis screen is negative. Does the patient have a suspected source of infection? No. Patient's initial sepsis screen is negative. Risk Assessment: Do you want to hurt yourself or someone else? Patient reports no desire to harm self or others. 10:31 Method Of Arrival: Ambulatory j9 10:31 Acuity: CIARA 3 jg9 10:36 Onset of symptoms is unknown. jg9 Triage Assessment: 10:35 General: Appears in no apparent distress. Behavior is calm. Pain: Complains of pain in jg9 abdomen-intermittent r sided abd pain. Historical: - Allergies: 10:34 meperidine HCl (rash); jg9 10:34 Morphine; jg9 - PMHx: 10:34 ADD/ADHD; Depression; DM chemical induced; giant cell arteritis; Giant Cell Arthritis; jg9 Hyperlipidemia; Hypertension; Hypothyroidism; Myocardial infarction; renal cell carcinoma; renal cell carcinoma contained; stage 3 kidney failure; - Immunization history:: Client reports receiving the 2nd dose of the Covid vaccine, Pneumococcal vaccine is not up to date, Flu vaccine is not up to date. - Social history:: Smoking status: Patient denies any tobacco usage or history of. Screenin:36 Abuse screen: Denies threats or abuse. Denies injuries from another. Nutritional jg9 screening: No deficits noted. Tuberculosis screening: No symptoms or risk factors identified. Fall Risk Fall in past 12 months (25 points). Assessment: 11:01 General: Appears in no apparent distress. comfortable, Behavior is calm, cooperative, ab2 appropriate for age. Pain: Denies pain. Neuro: Level of Consciousness is awake, alert, obeys commands, Oriented to person, place, time, situation, Appropriate for age Pulp Machine Operator are equal bilaterally Gait is steady, Speech is normal, Facial symmetry appears normal, Reports weakness. Cardiovascular: Denies chest pain, shortness of breath, Heart tones S1 S2 present Patient's skin is warm and dry. Chest pain is denied. Respiratory: No deficits noted. Airway is patent Breath sounds are clear bilaterally. Denies cough, shortness of breath. GI: No deficits noted. No signs and/or symptoms were reported involving the gastrointestinal system. Abdomen is round non-distended. : No deficits noted. No signs and/or symptoms were reported regarding the genitourinary system. EENT: No deficits noted. No signs and/or symptoms were reported regarding the EENT system. Derm: Skin is intact, is healthy with good turgor, Skin is dry, Skin is pink, warm \T\ dry. Skin temperature is cool. 12:21 Reassessment: Patient appears in no apparent distress at this time. Awaiting blood for ab2 transfusion. Pt ambulated to bathroom with supervision. Pt ambulated well. Warm blankets given and lights dimmed for per patient request. 14:00 Reassessment: Patient appears in no apparent distress at this time. Awaiting blood for ab2 transfusion. 14:25 Reassessment: Blood transfusion began. ab2 14:30 Reassessment: Patient appears in no apparent distress at this time. Pt tolerating ab2 transfusion well. 14:35 Reassessment: Patient appears in no apparent distress at this time. Pt still receiving ab2 transfusion, no distress noted. Tolerating well, resting in bed at this time. 14:40 Reassessment: Patient appears in no apparent distress at this time. Pt tolerating ab2 transfusion well with no signs of reaction. 14:55 Reassessment: Patient appears in no apparent distress at this time. Pt tolerating ab2 transfusion well, with no signs of reaction. 15:25 Reassessment: Patient appears in no apparent distress at this time. Pt tolerating ab2 infusion well with no s/s of reaction. 15:55 Reassessment: Patient appears in no apparent distress at this time. Pt resting ab2 comfortably. No s/s of transfusion reaction Patient denies pain at this time. 16:25 Reassessment: Patient appears in no apparent distress at this time. Pt resting with no ab2 s/s of transfusion reaction. 16:45 Reassessment: Patient appears in no apparent distress at this time. Transfusion ab2 completed. Pt tolerated well with no s/s of reaction. 17:15 Reassessment: Patient appears in no apparent distress at this time. began second unit ab2 of PRBC at this time. 17:20 Reassessment: Patient appears in no apparent distress at this time. No s/s of ab2 transfusion reaction at this time. Pt eating dinner. 17:25 Reassessment: Patient appears in no apparent distress at this time. No s/s of reaction. ab2 Pt tolerating infusion well. 17:30 Reassessment: Patient appears in no apparent distress at this time. Pt tolerating ab2 transfusion well with no s/s of reaction. 17:45 Reassessment: Patient appears in no apparent distress at this time. Pt on the phone ab2 with family, tolerating infusion well with no s/s of reaction at this time. 18:15 Reassessment: Patient appears in no apparent distress at this time. No s/s of ab2 transfusion reaction. 18:45 Reassessment: Patient appears in no apparent distress at this time. Pt tolerating ab2 infusion. 19:15 Reassessment: Patient appears in no apparent distress at this time. Pt tolerating ab2 infusion well. 19:45 Reassessment: Patient appears in no apparent distress at this time. Infusion completed ab2 and pt tolerated well. Vital Signs: 10:31 BP 113 / 44; Pulse 66; Resp 17 S; Temp 98.1(TE); Pulse Ox 99% on R/A; Weight 58.97 kg jg9 (R); Height 5 ft. 0 in. (152.40 cm); 11:14 BP 124 / 50; Pulse 73; Resp 16; Pulse Ox 98% on R/A; Pain 0/10; ab2 12:20 BP 123 / 47; Pulse 71; Resp 16; Pulse Ox 99% on R/A; ab2 13:32 BP 177 / 50; Pulse 67; Resp 16; Pulse Ox 100% on R/A; Pain 0/10; ab2 14:25 BP 145 / 35; Pulse 69; Resp 15; Temp 97.9(O); Pulse Ox 98% on R/A; Pain 0/10; ab2 14:30 BP 139 / 47; Pulse 67; Resp 15; Temp 97.7(O); Pulse Ox 96% on R/A; Pain 0/10; ab2 14:35 BP 138 / 48; Pulse 63; Resp 14; Temp 98.3(O); Pulse Ox 99% on R/A; Pain 0/10; ab2 14:40 BP 131 / 50; Pulse 69; Resp 14; Temp 98.4(O); Pulse Ox 98% on R/A; Pain 0/10; ab2 14:55 BP 140 / 53; Pulse 66; Resp 13; Temp 97.9(O); Pulse Ox 99% on R/A; Pain 0/10; ab2 15:25 BP 134 / 69; Pulse 62; Resp 14; Temp 98.0; Pulse Ox 98% on R/A; Pain 0/10; ab2 15:55 BP 127 / 55; Pulse 63; Resp 14; Temp 97.8; Pulse Ox 99% on R/A; Pain 0/10; ab2 16:25 BP 136 / 45; Pulse 61; Resp 13; Temp 97.9(O); Pulse Ox 99% on R/A; Pain 0/10; ab2 16:45 BP 140 / 51; Pulse 60; Resp 14; Temp 98.0(O); Pulse Ox 99% ; Pain 0/10; ab2 17:05 BP 155 / 111; Pulse 123; Resp 16; Pulse Ox 97% on R/A; ab2 17:15 BP 161 / 46; Pulse 63; Resp 14; Temp 98.0(O); Pulse Ox 99% on R/A; Pain 0/10; ab2 17:20 BP 167 / 49; Pulse 69; Resp 13; Temp 98.0(O); Pulse Ox 98% ; Pain 0/10; ab2 17:25 BP 167 / 55; Pulse 64; Resp 15; Temp 98.2; Pulse Ox 99% on R/A; Pain 0/10; ab2 17:30 BP 168 / 53; Pulse 62; Resp 15; Temp 98.2(O); Pulse Ox 99% on R/A; Pain 0/10; ab2 17:45 BP 152 / 50; Pulse 59; Resp 15; Temp 98.2(O); Pulse Ox 100% on R/A; Pain 0/10; ab2 18:15 BP 166 / 45; Pulse 67; Resp 15; Temp 98.1(O); Pulse Ox 100% on R/A; Pain 0/10; ab2 18:45 BP 182 / 47; Pulse 64; Resp 15; Temp 98.2(O); Pulse Ox 99% on R/A; Pain 0/10; ab2 19:15 BP 165 / 57; Pulse 63; Resp 15; Temp 98.1(O); Pulse Ox 99% on R/A; Pain 0/10; ab2 19:45 BP 170 / 57; Pulse 64; Resp 15; Temp 98.0(O); Pulse Ox 99% ; Pain 0/10; ab2 10:31 Body Mass Index 25.39 (58.97 kg, 152.40 cm) jg9 ED Course: 10:25 Patient arrived in ED. ds1 10:34 Triage completed. jg9 10:36 Arm band placed on left wrist. jg9 10:37 Libby Gr, CONCETTA is Primary Nurse. vg1 10:38 Laith Kate MD is Attending Physician. ma2 10:54 Karthikeyan Bernal is Primary Nurse. ab2 11:02 Patient has correct armband on for positive identification. Bed in low position. Call ab2 light in reach. Side rails up X2. 11:02 No provider procedures requiring assistance completed. Inserted saline lock: 18 gauge ab2 in right antecubital area, using aseptic technique. Blood collected. 11:08 Vitamin B12 Level Sent. ab2 11:08 Transferrin Sat/Iron Binding Sent. ab2 11:08 Retic Count Sent. ab2 11:08 Protein Electo w/M Filiberto Serum Sent. ab2 11:08 Lactic Dehydrogenase Sent. ab2 11:08 Ferritin Sent. ab2 11:08 CBC with Automated Diff Sent. ab2 11:08 Basic Metabolic Panel Sent. ab2 11:08 Type and Screen Sent. ab2 13:20 Consent for blood and/or blood product transfusion explained by staff, signed by iw patient. 20:12 IV discontinued, intact, bleeding controlled, No redness/swelling at site. Pressure ab2 dressing applied. Administered Medications: No medications were administered Outcome: 19:55 Discharge instructions given to patient, Instructed on discharge instructions, follow ab2 up and referral plans. Demonstrated understanding of instructions, follow-up care. 20:11 Discharged to home ambulatory. ab2 20:11 Condition: good 20:14 Discharge ordered by MD. ab2 20:14 Patient left the ED. ab2 Signatures: Marisel Cadet ds1 Chey Tomas, RN RN iw Laith Kate MD MD ma2 Libby Gr RN RN vg1 Giulia Arshad RN RN jg9 Karthikeyan Bernal ab2 Corrections: (The following items were deleted from the chart) 14:46 14:30 BP 145 / 35; Pulse 69bpm; Resp 15bpm; Pulse Ox 98% RA; Temp 97.9F Oral; Pain ab2 0/10; ab2
[2021-09-19 21:00] VITALS: O2SAT 99
[2021-09-19 21:03] VITALS: BP 170/57; TEMP 98
[2021-09-23 23:28] LABS: Albumin, (SPE) 3.1 g/dL (3.8-4.8); Alpha-1-Globulins 0.4 g/dL (0.2-0.3); Alpha-2-Globulins 0.9 g/dL (0.5-0.9); Gamma Globulins 0.4 g/dL (0.8-1.7); INTERPRETATION REPORT
== END 2021-09-19 21:30 | disposition home or self-care (01) ==
LOC: ER 09:57 → ERHOLD 10:55
PROVIDERS: ADMIT Internal Medicine; ATTEND Internal Medicine
PROC: 30233N1 Transfusion of Nonautologous Red Blood Cells into Peripheral Vein, Percutaneous Approach (ICD-10-PCS; principal; 2021-09-19)
DX: D64.9 Anemia, unspecified (principal); M31.5 Giant cell arteritis with polymyalgia rheumatica; I10 Essential (primary) hypertension; R51.9 Headache, unspecified; F32.A Depression, unspecified; E11.40 Type 2 diabetes mellitus with diabetic neuropathy, unspecified; E03.9 Hypothyroidism, unspecified; E78.00 Pure hypercholesterolemia, unspecified; K21.9 Gastro-esophageal reflux disease without esophagitis; E78.5 Hyperlipidemia, unspecified; I25.2 Old myocardial infarction; Z79.4 Long term (current) use of insulin; Z88.6 Allergy status to analgesic agent; Z85.528 Personal history of other malignant neoplasm of kidney; Z90.5 Acquired absence of kidney; Z90.710 Acquired absence of both cervix and uterus; Z80.1 Family history of malignant neoplasm of trachea, bronchus and lung; Z83.3 Family history of diabetes mellitus
CPT/HCPCS: 85025; 80048; 36415; 86900; 86850; 83615; 85044; 86901; 82728; 82607; 83540; 84466; 84165; 99281; 36430; P9016 ×2; J7050 ×2; G0378 ×2

== ENCOUNTER 2021-11-23 10:30 | Emergency (ER) | payer OTHER ==
--- OUTSIDE RECORDS SUMMARY | 2021-11-23 10:36 | XMS REPORT | Continuity of Care Document ---
:1940 Author Organization [facility] t Address [address] [place] [address] Dr. Benítez [address] [place] [address] Care Team Providers Name Role Phone PRISCILLA AGUIRRE Attending Clinician Unavailable DIOMEDES Attending Clinician Unavailable KENYON Attending Clinician Unavailable PRISCILLA AGUIRRE Admitting Clinician Unavailable DIOMEDES Admitting Clinician Unavailable KENYON Admitting Clinician Unavailable Tello CRAWFORD Admitting Clinician Unavailable HA MCKEON Admitting Clinician Unavailable Payers Payer Name Policy Type Policy Number Effective Date Expiration Date S ource UNITED MEDICARE [id number] 2019 O 00:00:00 CDC REVIEW [id number] 2020 00:00:00 Problems This patient has no [...] Clinicians Facility Department ID 2021-05-23 Inpatient ER [facility] [place] [id number] SLE 08:28:59 JAIME 2021-05-[address] [facility] [id number] SLE 07:11:14 , CHECO Med 2020-04-21 Inpatient ER [facility] Surgery [id number] SLE 17:35:00 KATHRIN 2020-03-31 Inpatient ER [facility] Inter Rad [id number] SLE 07:46:00 JAIME Results Test Description Test Time Test Comments Results Result Comments Source POCT-GLUCOSE METER 2020-05-15 12:07:00 Test Item Value Reference Range Interpretation Comme [facility] POC-GLUCOSE METER (BEAKER) 145 mg/dL 70-110 H : TESTED AT [address] (test code = 1538) [place], [address]: Store Merchandiser/Techni sebastian ID = [id number] for JAYSON OVIEDO SARS-COV2/RT-PCR ([facility])2020-05-15 10:07:00 Test Item Value Reference Range Interpretation Comments SARS-COV2/RT-PCR (test Negative Not Detected, Negative, code = 8900583) See external report for linked test SARS-COV-2 PERFORMING LAB [facility] ROLY (test code = 8581631) Negative result for this test determines that [...] 564(g) of the Act.Fact Sheet for Healthcare Providers:https://www.[employer]/sites/default/files/product/documents/Fact_Shee v_WK_Kgffaxfas_Vjcm_PJYB-UyJ-4.pdfFact Sheet for Healthcare Patients:https://www.[employer]/sites/default/files/product/ documents/Cjav_Uftzp_Gscfkede_Dzej_VHHQ-YbV-3.pdfPerforming Laboratory:[facility], [place] [address]LJNT-UIUFKDN METER 2020-05-15 07:57:00 Test Item Value Reference Range Interpretation Comments POC-GLUCOSE METER 145 mg/dL 70-110 H : TESTED A T [facility] 6720 ([place]) (test code = [place], 1538) [address]: Store Merchandiser/Techni sebastian ID = [id number] for RUDDY STUBBS BASIC METABOLIC [id number] 06:06:00 Test Item Value Reference Range Interpretation [...] S NOT APPLICABLE FOR DIALYSIS PATIEN TS. Store Merchandiser ID - PIAYA LSpecimen slightly ictericCBC (HEMOGRAM [...] WBC 0-0 (test code = 413) POCT-GLUCOSE [id number] 21:59:00 Test Item Value Reference Range Interpretation Comments POC-GLUCOSE METER 129 mg/dL 70-110 H : TESTED A T [facility] 6720 (BEAKER) (test code = [facility], 1538) [address]: Store Merchandiser/Techni sebastian ID = [id number] for THAD ENRIQUEZ POCT-GLUCOSE [id number] 21:20:00 Test Item Value Reference Range Interpretation Comments POC-GLUCOSE METER 68 mg/dL 70-110 L : TESTED A T [facility] 6720 (BEAKER) (test code = [facility], 1538) [address]: Store Merchandiser/Techni sebastian ID = [id number] for THAD ARROYO HEMOGLOBIN AND [id number] 16:58:00 Test Item Value Reference Range Interpretation Comments HEMOGLOBIN (BEAKER) (test code = 12.1 GM/DL 11.2-15.7 410) HEMATOCRIT (BEAKER) (test code = 36.7 % 34.1-44.9 411) Store Merchandiser ID - 6000HEMOGLOBIN [id number] 10:03:00 Test Item Value Reference Range Interpretation Comments HEMOGLOBIN A1C (BEAKER) (test code = 8.4 % 4.3-6.1 H 368) HEMOGLOBIN AND [id number] 09:18:00 Test Item Value Reference Range Interpretation Comments HEMOGLOBIN (BEAKER) (test code = 12.8 GM/DL 11.2-15.7 410) HEMATOCRIT (BEAKER) (test code = 38.7 % 34.1-44.9 411) Store Merchandiser ID - [id number] AND PARASITE [id number] 12:20:00 Test Item Value Reference Range Interpretation [...] (test seen seen code = 248) BLOOD [id number] 08:00:00 Test Item Value Reference Range Interpretation Comments CULTURE (BEAKER) (test No growth in 5 days code = 1095) BLOOD [id number] 08:00:00 Test Item Value Reference Range Interpretation Comments CULTURE (BEAKER) (test No growth in 5 days code = 1095) STOOL CULTURE + SHIGA [id number] 11:02:00 Test Item Value Reference Range Interpretation Comments CULTURE (BEAKER) No Salmonella, Shigella (test code = 1095) or Campylobacter isolated POCT-GLUCOSE [id number] 12:51:00 Test Item Value Reference Range Interpretation Comments POC-GLUCOSE METER 255 mg/dL 70-110 H : Notified RN/MD: ([facility]) (test code = TESTED AT [place] [address] 1538) SADAF [facility], [address]: Store Merchandiser/Techni sebastian ID = [id number] for AN KAITLIN POLLARD POCT-GLUCOSE [id number] 08:22:00 Test Item Value Reference Range Interpretation Comments POC-GLUCOSE METER 197 mg/dL 70-110 H : TESTED A T [facility] 67 ([facility]) (test code = JEANE Leann [facility], 1538) [address]: Store Merchandiser/Techni sebastian ID = [id number] for AN KAITLIN POLLARD BASIC METABOLIC [id number] 05:46:00 Test Item Value Reference Range Interpretation [...] S NOT APPLICABLE FOR DIALYSIS PATIEN TS. Store Merchandiser ID - EVELIA MSpecimen slightly ictericPOCT-GLUCOSE [id number] 22:22:00 Test Item Value Reference Range Interpretation Comments POC-GLUCOSE METER 323 mg/dL 70-110 H : TESTED A T [facility] 6720 (BEAKER) (test code = [facility], 1538) [address]: Store Merchandiser/Techni sebastian ID = [id number] for Tai Lara POCT-GLUCOSE [id number] 17:46:00 Test Item Value Reference Range Interpretation Comments POC-GLUCOSE METER 245 mg/dL 70-110 H : TESTED A T [facility] 6720 (BEAKER) (test code = [facility], 1538) [address]: Store Merchandiser/Techni sebastian ID = [id number] for BR OWN, VAZQUEZ POCT-GLUCOSE [id number] 12:12:00 Test Item Value Reference Range Interpretation Comments POC-GLUCOSE METER 317 mg/dL 70-110 H : TESTED A T [facility] 6720 (BEAKER) (test code = [facility] Rescale [facility], 1538) [address]: Store Merchandiser/Techni sebastian ID = [id number] for BR OWN, VAZQUEZ SHIGA TOXIN [id number] 10:32:00 Test Item Value Reference Range Interpretation Comments SHIGA TOXIN 1 (BEAKER) (test Not detected Not detected code = 2177) SHIGA TOXIN 2 (BEAKER) (test Not detected Not detected code = 2179) STOOL PATH [id number] 10:15:00 Test Item Value Reference Range Interpretation Comments PATHOGEN EXAM CHARGED (BEAKER) (test Done code = 2381) POCT-GLUCOSE [id number] 08:57:00 Test Item Value Reference Range Interpretation Comments POC-GLUCOSE METER 205 mg/dL 70-110 H : TESTED A T [facility] 6720 (BEAKER) (test code = [facility], 1538) [address]: Store Merchandiser/Techni sebastian ID = [id number] for BR OWN, VAZQUEZ HEMOGLOBIN [id number] 08:19:00 Test Item Value Reference Range Interpretation Comments HEMOGLOBIN A1C (BEAKER) (test code = 8.4 % 4.3-6.1 H 368) BASIC METABOLIC [id number] 07:56:00 Test Item Value Reference Range Interpretation [...] S NOT APPLICABLE FOR DIALYSIS PATIEN TS. Store Merchandiser ID - NEFTALY RAYOpecimedorys slightly ictericPOCT-GLUCOSE [id number] 22:55:00 Test Item Value Reference Range Interpretation Comments POC-GLUCOSE METER 229 mg/dL 70-110 H : TESTED A T [facility] 6720 (BEAKER) (test code = [facility], 1538) [address]: Store Merchandiser/Techni sebastian ID = [id number] for Karla Jackson POCT-GLUCOSE [id number] 17:45:00 Test Item Value Reference Range Interpretation Comments POC-GLUCOSE METER 306 mg/dL 70-110 H : TESTED A T [facility] 6720 (BEAKER) (test code = [facility], 1538) [address]: Store Merchandiser/Techni sebastian ID = [id number] for DI EPSTEIN POCT-GLUCOSE [id number] 11:59:00 Test Item Value Reference Range Interpretation Comments POC-GLUCOSE METER 150 mg/dL 70-110 H : TESTED A T [facility] 6720 (BEAKER) (test code = JEANE Noriega [place], 1538) [address]: Store Merchandiser/Techni sebastian ID = [id number] for DI EPSTEIN [id number] 10:18:00 Test Item Value Reference Range Interpretation Comments POTASSIUM (BEAKER) 4.9 meq/L 3.5-5.1 Specimen slightly (test code = 379) hemolyzed Store Merchandiser ID - EVELIA MPOCT-GLUCOSE [id number] 08:04:00 Test Item Value Reference Range Interpretation Comments POC-GLUCOSE METER 156 mg/dL 70-110 H : TESTED A T [facility] 6720 (BEAKER) (test code = JEANE Norie[place], 1538) [address]: Store Merchandiser/Techni sebastian ID = [id number] for DI EPSTEIN BASIC METABOLIC [id number] 05:51:00 Test Item Value Reference Range Interpretation [...] S NOT APPLICABLE FOR DIALYSIS PATIEN TS. Store Merchandiser ID - NEFTALY LSpecimen slightly ictericC. DIFFICILE GDH [id number] 05:03:00 Test Item Value Reference Range Interpretation Comments CDT TOXIN (test code Negative Negative = [id number]) CDT GDH ANTIGEN Positive Negative A C. difficile present but (test code = toxin not detec jenny. [id number]) Indicates colon ization with non-toxige faith strain or level of tox in below detectable leve ls. No need for enteri c isolation. Maxwell atment is rarely needed ( only when strong clinical suspicion for Clostridium difficile infection) Testing performed by [employer] Rapid Cassette Assay. For GDH, published sensitivity of the assay is 98.7% compared to cytotoxicity testing. For Toxin AB, published sensitivity is 87.8% and specificity 99.4% compared to cytotoxicity testing.Verification of kit performance was done by the [facility] Microbiology Lab prior to clinical use.FECAL [id number] 00:34:00 Test Item Value Reference Range Interpretation Comments FECAL LEUKOCYTES No fecal leukocytes No fecal leukocytes (BEAKER) (test code = seen seen 992) POCT-GLUCOSE [id number] 22:14:00 Test Item Value Reference Range Interpretation Comments POC-GLUCOSE METER 224 mg/dL 70-110 H : TESTED A T [facility] 6720 (BEAKER) (test code = [facility], 1538) [address]: Store Merchandiser/Techni sebastian ID = [id number] for SHAHZAD BRUCE POCT-GLUCOSE [id number] 14:51:00 Test Item Value Reference Range Interpretation Comments POC-GLUCOSE METER 120 mg/dL 70-110 H : TESTED A T [facility] 6720 (BEAKER) (test code = [facility], 1538) [address]: Store Merchandiser/Techni sebastian ID = [id number] for NCHEZ, MIYA BASIC METABOLIC [id number] 11:35:00 Test Item Value Reference Range Interpretation [...] S NOT APPLICABLE FOR DIALYSIS PATIEN TS. Store Merchandiser ID - EVELIA MSpecimen slightly [id number] 11:32:00 Test Item Value Reference Range Interpretation Comments MAGNESIUM (BEAKER) (test code = 1.9 mg/dL 1.6-2.6 627) Store Merchandiser ID - EVELIA MHEPATIC FUNCTION [id number] 11:32:00 Test Item Value Reference Range Interpretation [...] code = 107 U/L 6-55 H 347) Store Merchandiser ID - EVELIA Davilaecimen slightly ictericPROTHROMBIN TIME/[id number] 07:18:00 Test Item Value Reference Range Interpretation [...] mechanical heart valves.CBC W/PLT COUNT & AUTO [id number] 07:11:00 Test Item Value Reference Range Interpretation [...] PERCENT (BEAKER) (test code = 2801) BLOOD [id number] 23:00:00 Test Item Value Reference Range Interpretation Comments CULTURE (BEAKER) (test No growth in 5 days code = 1095) BLOOD [id number] 23:00:00 Test Item Value Reference Range Interpretation Comments CULTURE (BEAKER) (test No growth in 5 days code = 1095) PROTEIN ELECTROPHORESIS, [id number] 13:55:00 Test Item Value Reference Range Interpretation [...] (BEAKER) (test code = mild acute inflammation 2617) coupled with urine protein loss and/or protein-losing enteropathy. No monoclonal bands detected. [id number] Yudith Emanuel MD (BEAKER) (test code = (electronic signature) 2616) PROTEIN TOTAL SERUM, 5.0 gm/dL 6.0-8.3 L SPEP (BEAKER) (test code = 2660) Store Merchandiser ID - EVELIA MHEPATITIS PANEL, [id number] 17:11:00 Test Item Value Reference Range Interpretation Comments HEPATITIS A IGM ANTIBODY (BEAKER) Nonreactive Nonreactive (test code = 498) HEPATITIS B CORE IGM ANTIBODY Nonreactive Nonreactive (BEAKER) (test code = 645) HEPATITIS C ANTIBODY (BEAKER) Nonreactive Nonreactive (test code = 367) HEPATITIS B SURFACE ANTIGEN (2) Nonreactive Nonreactive (BEAKER) (test code = 2585) Store Merchandiser ID - DBPOCT-GLUCOSE [id number] 16:42:00 Test Item Value Reference Range Interpretation Comments POC-GLUCOSE METER 236 mg/dL 70-110 H : TESTED A T [facility] 6720 (BEAKER) (test code = JEANE Noriega [place], 1538) [address]: Store Merchandiser/Techni sebastian ID = [id number] for Giulia Wade POCT-GLUCOSE [id number] 12:36:00 Test Item Value Reference Range Interpretation Comments POC-GLUCOSE METER 276 mg/dL 70-110 H : TESTED A T [facility] 6720 (BEAKER) (test code = JEANE Noriega [facility], 1538) [address]: Store Merchandiser/Techni sebastian ID = [id number] for Giulia Wade HEMOGLOBIN [id number] 12:07:00 Test Item Value Reference Range Interpretation Comments HEMOGLOBIN A1C (BEAKER) (test code = 8.0 % 4.3-6.1 H 368) COMPREHENSIVE METABOLIC [id number] 11:48:00 Test Item Value Reference Range Interpretation [...] S NOT APPLICABLE FOR DIALYSIS PATIEN TS. Store Merchandiser ID - SUSI MSpecimen moderately ictericLIPID [id number] 11:48:00 Test Item Value Reference Range Interpretation [...] Borderline 130-159 High 160-189 Very High >=190 Store Merchandiser ID - SUSI MSpecimen moderately ictericTSH/FREE T4 IF [id number] 10:29:00 Test Item Value Reference Range Interpretation Comments THYROID STIMULATING HORMONE 3.805 uIU/mL 0.350-4.940 (BEAKER) (test code = 772) Store Merchandiser ID - [id number] 09:30:00 Test Item Value Reference Range Interpretation Comments FERRITIN (BEAKER) (test code = 292.76 ng/mL 5.00-275.00 H 361) Store Merchandiser ID - AAHAMIDVITAMIN B12 AND [id number] 09:30:00 Test Item Value Reference Range Interpretation Comments VITAMIN B12 (BEAKER) (test code = 1155 pg/mL 213-816 H 774) FOLATE (BEAKER) (test code = 362) 8.50 ng/mL >=7.00 Store Merchandiser ID - AAHAMIDPOCT-GLUCOSE [id number] 08:10:00 Test Item Value Reference Range Interpretation Comments POC-GLUCOSE METER 197 mg/dL 70-110 H : TESTED A T [facility] 6720 ([place]) (test code = [place], 1538) [address]: Store Merchandiser/Techni sebastian ID = [id number] for Giulia Wade MR, BRAIN, [id number] 02:52:00Unlisted Reason for Exam - Click Yes [...] MDReport Verified Date/Time: 04/24/2020 02:52:33 U/S, ABDOMINAL, [id number] 23:25:00Abdomen limited area? Add comment if clarification [...] Keating MDReport Verified Date/Time: 04/23/2020 23:25:58 POCT-GLUCOSE [id number] 23:17:00 Test Item Value Reference Range Interpretation Comments POC-GLUCOSE METER 206 mg/dL 70-110 H : TESTED A T [facility] 6720 ([facility]) (test code = [facility], 1538) [address]: Store Merchandiser/Techni sebastian ID = [id number] for LAVONNE MUSTAFA POCT-GLUCOSE [id number] 17:40:00 Test Item Value Reference Range Interpretation Comments POC-GLUCOSE METER 249 mg/dL 70-110 H : Notified RN/MD: ([facility]) (test code = TESTED AT [facility] 6720 1538) [facility], [address]: Store Merchandiser/Techni sebastian ID = [id number] for Vi Jazmin gambino CT, BRAIN, WITHOUT [id number] 10:32:00Unlisted Reason for Exam - Click Yes [...] (BEAKER) (test code = 2801) BASIC METABOLIC [id number] 05:03:00 Test Item Value Reference Range Interpretation [...] S NOT APPLICABLE FOR DIALYSIS PATIEN TS. Store Merchandiser ID - EVELIA Davilaecimen moderately ictericHEPATIC FUNCTION [id number] 05:03:00 Test Item Value Reference Range Interpretation [...] Specimen moderately (test code = 347) hemolyzed Store Merchandiser ID - EVELIA Leaimedorys moderately ictericPOCT-GLUCOSE [id number] 04:01:00 Test Item Value Reference Range Interpretation Comments POC-GLUCOSE METER 193 mg/dL 70-110 H : TESTED A T [facility] 6720 (BEAKER) (test code [facility], = 1538) [address]: Store Merchandiser/Techni sebastian ID = [id number] for RUSSELL , ESME POCT-GLUCOSE [id number] 21:04:00 Test Item Value Reference Range Interpretation Comments POC-GLUCOSE METER 198 mg/dL 70-110 H : TESTED A T [facility] 6720 (BEAKER) (test code = [facility], 1538) [address]: Store Merchandiser/Techni sebastian ID = [id number] for Cathy hnson, Alla POCT-GLUCOSE [id number] 16:17:00 Test Item Value Reference Range Interpretation Comments POC-GLUCOSE METER 266 mg/dL 70-110 H : TESTED A T [facility] 6720 ([place]) (test code = [place], 1538) [address]: Store Merchandiser/Techni sebastian ID = [id number] for BRUCE DUMONT SARS-COV2/RT-PCR ([facility])2020-04-22 14:59:00 Test Item Value Reference Range Interpretation Comments SARS-COV2/RT-PCR (test Negative Not Detected, Negative, code = 1111491) See external report for linked test SARS-COV-2 PERFORMING LAB [facility] ROLY (test code = 3958092) Negative result for this test determines that [...] 564(g) of the Act.Fact Sheet for Healthcare Providers:https://www.[employer]/sites/default/files/product/documents/Fact_Shee r_LA_Ealpiqmnu_Eaki_NPBS-PqZ-8.pdfFact Sheet for Healthcare Patients:https://www.[employer]/sites/default/files/product/ documents/Mhmi_Ulyuy_Vjrdadzn_Lpdo_QPRO-TmC-5.pdfPerforming Laboratory:[facility], [place] [address]JIDJ-[id number] METER 2020-04-22 12:21:00 Test Item Value Reference Range Interpretation Comments POC-GLUCOSE METER 210 mg/dL 70-110 H : TESTED A T [facility] 6720 (BEAKER) (test code = JEANE Noriega [facility], 1538) [address]: Store Merchandiser/Techni sebastian ID = [id number] for BRUCE DUMONT [id number] 11:00:00 Test Item Value Reference Range Interpretation Comments PHOSPHORUS (BEAKER) (test code = 3.1 mg/dL 2.3-4.7 604) Store Merchandiser ID - EVELIA [id number] 11:00:00 Test Item Value Reference Range Interpretation Comments MAGNESIUM (BEAKER) (test code = 1.9 mg/dL 1.6-2.6 627) Store Merchandiser ID - EVELIA MBASIC METABOLIC [id number] 11:00:00 Test Item Value Reference Range Interpretation [...] S NOT APPLICABLE FOR DIALYSIS PATIEN TS. Store Merchandiser ID - EVELIA MSpecimen moderately ictericHEPATIC FUNCTION [id number] 11:00:00 Test Item Value Reference Range Interpretation [...] code = 112 U/L 6-55 H 347) Store Merchandiser ID - EVELIA MSpecimedorys moderately ictericPOCT-GLUCOSE [id number] 08:40:00 Test Item Value Reference Range Interpretation Comments POC-GLUCOSE METER 187 mg/dL 70-110 H : TESTED A T [facility] 6720 (BEAKER) (test code = [place], 1538) [address]: Store Merchandiser/Techni sebastian ID = [id number] for BRUCE DUMONT CBC W/PLT COUNT & AUTO [id number] 07:04:00 Test Item Value Reference Range Interpretation [...] PERCENT (BEAKER) (test code = 2801) POCT-GLUCOSE [id number] 23:41:00 Test Item Value Reference Range Interpretation Comments POC-GLUCOSE METER 211 mg/dL 70-110 H : TESTED A T [facility] 6720 (BEAKER) (test code = [place], 1538) [address]: Store Merchandiser/Techni sebastian ID = [id number] for RALPH REDDINGDorys SHABBIR URINALYSIS W/ [id number] 21:58:00 Test Item Value Reference Range Interpretation [...] = 516) SOURCE(BEAKER) (test code = 2795) Store Merchandiser ID - [auto]Store Merchandiser ID - hankFUNGUS CULTURE + [id number] 18:07:00 Test Item Value Reference Range Interpretation Comments CULTURE (BEAKER) A 3+ Lorri albicans (test code = 1095) FUNGUS SMEAR No fungi seen (BEAKER) (test code = 1406) ANAEROBIC [id number] 18:52:00 Test Item Value Reference Range Interpretation Comments CULTURE (BEAKER) (test No anaerobes isolated code = 1095) CBC W/PLT COUNT & AUTO [id number] 06:39:00 Test Item Value Reference Range Interpretation [...] (BEAKER) (test code = 2801) COMPREHENSIVE METABOLIC [id number] 06:17:00 Test Item Value Reference Range Interpretation [...] S NOT APPLICABLE FOR DIALYSIS PATIEN TS. Store Merchandiser ID - EVELIA [facility] MET[facility]OLIC [id number] 05:24:00 Test Item Value Reference Range Interpretation [...] S NOT APPLICABLE FOR DIALYSIS PATIEN TS. Store Merchandiser ID - EDASIWOUND CULTURE + GRAM [id number] 10:29:00 Test Item Value Reference Range Interpretation [...] <1+ budding yeast (BEAKER) (test code = 864999) CBC W/PLT COUNT & AUTO [id number] 05:33:00 Test Item Value Reference Range Interpretation [...] (BEAKER) (test code = 2801) COMPREHENSIVE METABOLIC [id number] 05:08:00 Test Item Value Reference Range Interpretation [...] S NOT APPLICABLE FOR DIALYSIS PATIEN TS. Store Merchandiser ID - EDASISpecimen slightly ictericCOMPREHENSIVE METABOLIC PANEL [...] S NOT APPLICABLE FOR DIALYSIS PATIEN TS. Store Merchandiser ID - PIAYA LSpecimen slightly ictericCBC W/PLT COUNT & AUTO [id number] 05:03:00 Test Item Value Reference Range Interpretation [...] (BEAKER) (test code = 2801) CT, DRAINAGE, [id number] 12:12:00Reason for exam:->Diverticulitis with increasing size of abscessFINAL REPORT PROCEDURE: CT, DRAINAGE, ABDOMINAL DOSE REDUCTION: The examination was performed according to departmental dose-optimization program which includes automated exposure control, adjustment of the mA and/or kV according to patient size and/or use of iterative reconstruction technique. HISTORY: Diverticulitis with increasing size of abscess Store Merchandiser: Bam Ko MD Moderate sedation: See nursing [...] dilated using serial dilators. Subsequently a 8 Khmer all-purpose drainage catheter was advanced into the [...] MDReport Verified Date/Time: 04/01/2020 12:12:30 Reading Location: [address] Transitional Reading Room CBC W/PLT COUNT & AUTO [id number] 06:34:00 Test Item Value Reference Range Interpretation [...] 0-1 PERCENT (BEAKER) (test code = 2801) [id number] 06:33:00 Test Item Value Reference Range Interpretation Comments MAGNESIUM (BEAKER) 2.0 mg/dL 1.6-2.6 Specimen slightly (test code = 627) hemolyzed Store Merchandiser ID - EVELIA [id number] 06:33:00 Test Item Value Reference Range Interpretation Comments PHOSPHORUS (BEAKER) 2.0 mg/dL 2.3-4.7 L Specimen slightly (test code = 604) hemolyzed Store Merchandiser ID - EVELIA MCOMPREHENSIVE METABOLIC [id number] 06:33:00 Test Item Value Reference Range Interpretation [...] S NOT APPLICABLE FOR DIALYSIS PATIEN TS. Store Merchandiser TIARA - EVELIA MSpecimen slightly ictericCOMPREHENSIVE METABOLIC [...] S NOT APPLICABLE FOR DIALYSIS PATIEN TS. Store Merchandiser ID - MICHELL CSpecimen slightly [id number] 09:49:00 Test Item Value Reference Range Interpretation Comments MAGNESIUM (BEAKER) (test code = 2.1 mg/dL 1.6-2.6 627) Store Merchandiser ID - MICHELL CLACTIC ACID, [id number] 09:45:00 Test Item Value Reference Range Interpretation Comments LACTATE BLOOD VENOUS (2) (BEAKER) 1.05 mmol/L 0.50-2.20 (test code = 2872) Store Merchandiser ID - AUG CPT/[id number] 09:35:00 Test Item Value Reference Range Interpretation [...] mechanical heart valves.CBC W/PLT COUNT & AUTO [id number] 09:26:00 Test Item Value Reference Range Interpretation [...] % 0-1 PERCENT (BEAKER) (test code = 5213)
[2021-11-23] MEDS ORDERED: TETANUS & DIPHTHERIA TOX,ADULT 0.5 ML VIAL ONE (12:50)
--- NOTE | 2021-11-23 13:13 | RAD REPORT ---
EXAM DESCRIPTION: Shoulder Right 2 View - 11/23/2021 1:04 pm CLINICAL HISTORY: PAIN COMPARISON: Shoulder Right 2 View dated 06/30/2009 TECHNIQUE: Internal and external rotation views of the right shoulder were obtained. FINDINGS: No fracture or dislocation of the humerus. No pathologic or avascular changes to the proxi mal humerus seen. Degenerative spurring is mild along the superior aspect of the greater tuberosity. AC joint degenerative changes are present. Inferiorly directed clavicle head spur is present. There i s additional spurring and degenerative change along the undersurface of the acromion. These are progr essive degenerative changes since 2008. No AC joint separation. Lateral aspect of the acromial lacy l joint space is narrowed but not significantly different from 2009. No suspicious soft tissue calcif ications. 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 Changes have progressed from 2008. No fracture, dislocation or acute shoulder joint finding.
--- NOTE | 2021-11-23 13:14 | RAD REPORT ---
EXAM DESCRIPTION: RAD - Humerus Right - 11/23/2021 1:04 pm CLINICAL HISTORY: PAIN COMPARISON: Forearm Right dated 11/23/2021; Shoulder Right 2 View dated 11/23/2021 FINDINGS: No fracture is identified. There is no dislocation or periosteal reaction noted. No foreig n body or other soft tissue abnormality. Shoulder and elbow joints are detailed on the separate right shoulder and right forearm examinations. IMPRESSION: Negative right humerus examination for acute finding.
--- NOTE | 2021-11-23 13:17 | RAD REPORT ---
EXAM DESCRIPTION: RAD - Forearm Right - 11/23/2021 1:04 pm CLINICAL HISTORY: PAIN COMPARISON: Humerus Right dated 11/23/2021 FINDINGS: No gross fracture deformity is seen. Radial head appears to be intact. Exam was not a dedi cated elbow or radial head focused examination. The patient has pain that may localized to the radial head, and directed elbow examination could be performed. Remainder the radius is intact. No ulna fracture or acute finding seen. No elevated fat pad along the posterior margin of the elbow joint. There is no dislocation or periosteal reaction noted. Radiocarp al joint space is narrowed. Degenerative changes are present along the articular margins of the trape zium. The carpal bones are not adequately positioned on a formal examination to allow for full assess ment. No foreign body or other soft tissue abnormality. IMPRESSION: No fracture is identified though radial head evaluation is incomplete. The patient has p ain symptoms localizing to the radial head lateral elbow joint region directed elbow joint and radial head imaging could be performed. No other acute or suspicious finding noted. Degenerative changes are present at the wrist.
--- NOTE | 2021-11-23 13:24 | EDPHYS ---
Physician Documentation [facility] Name: Radha Ocampo Age: 81 yrs Sex: Female : 1940 Arrival Date: 11/23/2021 Time: 10:34 Bed 9 Private MD: ED Physician New Shen HPI: 11/23 15:04 This 81 yrs old Female presents to ER via Ambulatory with complaints of Fall Injury. kb 15:04 Details of fall: The patient fell from an upright position, while walking. Onset: The kb symptoms/episode began/occurred yesterday. Associated injuries: The patient sustained right arm, decreased range of motion, painful injury, skin tears. Severity of symptoms: At their worst the symptoms were mild, moderate, in the emergency department the symptoms are unchanged. The patient has not experienced similar symptoms in the past. The patient has not recently seen a physician. Historical: - Allergies: 11:02 meperidine HCl (rash); ab2 11:02 Morphine; ab2 - PMHx: 11:02 ADD/ADHD; Depression; Hypothyroidism; DM chemical induced; Myocardial infarction; giant ab2 cell arteritis; Hyperlipidemia; Giant Cell Arthritis; Hypertension; renal cell carcinoma; renal cell carcinoma contained; stage 3 kidney failure; - Immunization history:: Adult Immunizations up to date. - Social history:: Smoking status: Patient denies any tobacco usage or history of. ROS: 13:28 Constitutional: Negative for fever, chills, and weight loss. kb 14:45 MS/extremity: Positive for decreased range of motion, pain, tenderness, of the right kb arm, skin tear. 14:45 Skin: Positive for of the left arm, skin tear. 14:45 All other systems are negative. Exam: 15:02 Constitutional: This is a well developed, well nourished patient who is awake, alert, kb and in no acute distress. Head/Face: Normocephalic, atraumatic. ENT: Moist Mucous membranes Cardiovascular: Regular rate and rhythm with a normal S1 and S2. No gallops, murmurs, or rubs. No pulse deficits. Respiratory: Respirations even and unlabored. No increased work of breathing. Talking in full sentences Neuro: Awake and alert, GCS 15, oriented to person, place, time, and situation. Moves all extremities. Normal gait. Psych: Awake, alert, with orientation to person, place and time. Behavior, mood, and affect are within normal limits. 15:02 Skin: skin tears to right forearm and upper arm. 15:03 Musculoskeletal/extremity: Extremities: grossly normal except: noted in the right arm: kb decreased ROM, pain, tenderness, ROM: limited active range of motion due to pain, Circulation is intact in all extremities. Sensation intact. Vital Signs: 11:00 BP 127 / 44; Pulse 63; Resp 17; Temp 98.1(TE); Pulse Ox 98% on R/A; Weight 58.06 kg; ab2 Height 5 ft. 0 in. (152.40 cm); Pain 4/10; 13:46 BP 126 / 54; Pulse 62; ss 11:00 Body Mass Index 25.00 (58.06 kg, 152.40 cm) ab2 MDM: 11:58 Patient medically screened. [facility] 13:22 Data reviewed: vital signs, nurses notes. Data interpreted: Pulse oximetry: on room air kb is 98 %. Interpretation: normal. Counseling: I had a detailed discussion with the patient and/or guardian regarding: the historical points, exam findings, and any diagnostic results supporting the discharge/admit diagnosis, radiology results, the need for outpatient follow up, a family practitioner, to return to the emergency department if symptoms worsen or persist or if there are any questions or concerns that arise at home. 11/23 11:17 Order name: Humerus Right XRAY; Complete Time: 13:22 kb 11/23 11:17 Order name: Forearm Right XRAY; Complete Time: 13:22 kb 11/23 12:03 Order name: Shoulder Right (2 View) XRAY; Complete Time: 13:22 kb 11/23 12:41 Order name: Wound Care; Complete Time: 12:49 kb Administered Medications: 12:48 Drug: Tetanus-Diphtheria Toxoid Adult 0.5 ml {[employer]land [employer] Specialist: [employer]. Exp: ss 10/27/2023. Lot #: [id number]. } Route: IM; Site: right deltoid; 13:47 Follow up: Response: No adverse reaction ss Disposition Summary: 11/23/21 13:23 Discharge Ordered Location: Home kb Condition: Stable kb Diagnosis - Pain in right arm kb - Fall on same level from slipping, tripping and stumbling without subsequent kb striking against object - skin tear right arm kb Followup: kb - With: Emergency Department - When: As needed - Reason: Worsening of condition Followup: kb - With: Private Physician - When: 2 - 3 days - Reason: Recheck today's complaints, Continuance of care, Re-evaluation by your physician Discharge Instructions: - Discharge Summary Sheet kb - Musculoskeletal Pain kb - Skin Tear, [id number] kb Forms: - Medication Reconciliation Form kb - Thank You Letter kb - Antibiotic Education kb - Prescription Opioid Use kb Addendum: 11/29/2021 18:47 Co-signature as Attending Physician, New Shen MD I agree with the assessment and c abdalla plan of care. Signatures: Dispatcher [employer] EDMS Azra Abel, DOCK BOSS-C DOCK BOSS-New Kim MD MD cha Smirch, Shelby, RN RN Karthikeyan Darby
--- NOTE | 2021-11-23 13:24 | ER ---
Nurse's Notes [facility] Name: Radha Ocampo Age: 81 yrs Sex: Female : 1940 Arrival Date: 11/23/2021 Time: 10:34 Bed 9 Private MD: Diagnosis: Pain in right arm;Fall on same level from slipping, tripping and stumbling without subsequent striking against object;skin tear right arm Presentation: 11/23 11:00 Chief complaint: Patient states: "I was sweeping the floor and I bent down to get the ab2 rug out of the way and lost balance. When I fell I cut my right arm and my arm hurts from my shoulder to my hand." Pt states this happened yesterday around 1600. Pt denies hitting her head, LOC or any blood thinners. Pt c/o right arm pain. Coronavirus screen: Vaccine status: Patient reports receiving the 2nd dose of the covid vaccine. Client denies travel out of the [place] in the last 14 days. At this time, the client does not indicate any symptoms associated with coronavirus-19. Ebola Screen: Patient negative for fever greater than or equal to 101.5 degrees Fahrenheit, and additional compatible Ebola Virus Disease symptoms Patient denies exposure to infectious person. Patient denies travel to an Ebola-affected area in the 21 days before illness onset. No symptoms or risks identified at this time. Initial Sepsis Screen: Does the patient meet any 2 criteria? No. Patient's initial sepsis screen is negative. Does the patient have a suspected source of infection? No. Patient's initial sepsis screen is negative. Risk Assessment: Do you want to hurt yourself or someone else? Patient reports no desire to harm self or others. Onset of symptoms is unknown. 11:00 Method Of Arrival: Ambulatory ab2 11:00 Acuity: CIARA 4 ab2 Triage Assessment: 11:03 General: Appears in no apparent distress. uncomfortable, Behavior is calm, cooperative, ab2 appropriate for age. Pain: Complains of pain in right arm Pain currently is 4 out of 10 on a pain scale. Neuro: Level of Consciousness is awake, alert, obeys commands, Oriented to person, place, time, situation, Appropriate for age Photograph Finisher are equal bilaterally Moves all extremities. Gait is steady, Speech is normal. Cardiovascular: No deficits noted. Denies chest pain, shortness of breath, Patient's skin is warm and dry. Respiratory: Airway is patent Respiratory effort is even, unlabored, Respiratory pattern is regular, symmetrical. GI: No deficits noted. No signs and/or symptoms were reported involving the gastrointestinal system. : No deficits noted. No signs and/or symptoms were reported regarding the genitourinary system. Musculoskeletal: Reports pain in right arm. Injury Description: Pt fell. Historical: - Allergies: 11:02 meperidine HCl (rash); ab2 11:02 Morphine; ab2 - PMHx: 11:02 ADD/ADHD; Depression; Hypothyroidism; DM chemical induced; Myocardial infarction; giant ab2 cell arteritis; Hyperlipidemia; Giant Cell Arthritis; Hypertension; renal cell carcinoma; renal cell carcinoma contained; stage 3 kidney failure; - Immunization history:: Adult Immunizations up to date. - Social history:: Smoking status: Patient denies any tobacco usage or history of. Screenin:46 Abuse screen: Denies threats or abuse. Denies injuries from another. Nutritional ss screening: No deficits noted. Tuberculosis screening: Never had TB. Fall Risk Fall in past 12 months (25 points). Assessment: 12:20 General: Appears comfortable, Behavior is calm, cooperative. Pain: Complains of pain in ss right arm Pain currently is 4 out of 10 on a pain scale. Quality of pain is described as burning, tender. Neuro: Level of Consciousness is awake, alert, obeys commands, Oriented to person, place, time, situation. Respiratory: Airway is patent Respiratory effort is even, unlabored, Respiratory pattern is regular, symmetrical. EENT: Oral mucosa is moist. Derm: Skin is fragile, is thin, with poor turgor Skin is pink, warm \\T\\ dry. Musculoskeletal: Range of motion: intact in all extremities. Injury Description: Large, irregular shaped skin tear noted to R elbow. 13:46 Reassessment: Patient appears in no apparent distress at this time. Patient and/or ss family updated on plan of care and expected duration. Pain level reassessed. Patient is alert, oriented x 3, equal unlabored respirations, skin warm/dry/pink. Vital Signs: 11:00 BP 127 / 44; Pulse 63; Resp 17; Temp 98.1(TE); Pulse Ox 98% on R/A; Weight 58.06 kg; ab2 Height 5 ft. 0 in. (152.40 cm); Pain 4/10; 13:46 BP 126 / 54; Pulse 62; ss 11:00 Body Mass Index 25.00 (58.06 kg, 152.40 cm) ab2 ED Course: 10:34 Patient arrived in ED. ds1 11:02 Triage completed. ab2 11:04 Arm band placed on left wrist. ab2 11:58 [facility] Abel [facility]-C [facility]. kb 11:58 New Shen MD is Attending Physician. kb 12:44 Kavitha Maxwell, CONCETTA is Primary Nurse. ss 13:06 Humerus Right XRAY In Process Unspecified. EDMS 13:06 Forearm Right XRAY In Process Unspecified. EDMS 13:06 Shoulder Right (2 View) XRAY In Process Unspecified. EDMS 13:30 Patient has correct armband on for positive identification. Bed in low position. ss 13:40 No provider procedures requiring assistance completed. Patient did not have IV access ss during this emergency room visit. Wound care: to skin tear noted to R elbow, forearm. Cleansed with saline and dressed with steri-strips, non adherent dressing and Vaseline gauze. Pt tolerated well. 13:44 Wound care: Dressed wound with steri strips, Vaseline gauze, non-adherent dressing, and dh3 Kerlix. Administered Medications: 12:48 Drug: Tetanus-Diphtheria Toxoid Adult 0.5 ml {Tactical/Mobile Watch Officer: [employer]. Exp: ss 10/27/2023. Lot #: [id number]. } Route: IM; Site: right deltoid; 13:47 Follow up: Response: No adverse reaction ss Outcome: 13:23 Discharge ordered by . kb 13:40 Discharged to home via wheelchair. ss 13:40 Condition: good 13:40 Discharge instructions given to patient, Instructed on discharge instructions, follow up and referral plans. Demonstrated understanding of instructions, follow-up care. 13:47 Patient left the ED. ss Signatures: Dispatcher [employer] EDME Azra Abel FNP-C FNP-Ckb Sanford, Demi ds1 Kavitha Maxwell, RN RN Marychuy Velez 3 Karthikeyan Bernal ab2
[2021-11-23 15:52] VITALS: TEMP 98.1; O2SAT 98
[2021-11-23 15:54] VITALS: BP 126/54
== END 2021-11-23 13:47 | disposition home or self-care (01) ==
LOC: ER 10:30
DX: S41.111A Laceration without foreign body of right upper arm, initial encounter (principal); W01.0XXA Fall on same level from slipping, tripping and stumbling without subsequent striking against object, initial encounter; E11.22 Type 2 diabetes mellitus with diabetic chronic kidney disease; N18.2 Chronic kidney disease, stage 2 (mild); Z23 Encounter for immunization; Z85.53 Personal history of malignant neoplasm of renal pelvis; Z88.5 Allergy status to narcotic agent; Z88.8 Allergy status to other drugs, medicaments and biological substances
CPT/HCPCS: 90471; 90714; 99284

== ENCOUNTER 2022-07-31 12:41 | Emergency (ER) | payer OTHER ==
--- OUTSIDE RECORDS SUMMARY | 2022-07-31 12:49 | XMS REPORT | Continuity of Care Document ---
:1940 Author Organization [facility] t Address [address] [place] [address] Dr. Benítez [address] [place] [address] Care Team Providers Name Role Phone JAIME AGUIRRE Attending Clinician Unavailable CHECO HERCULES Attending Clinician Unavailable KATHRIN PRESCOTT Attending Clinician Unavailable Slade Ryan Attending Clinician JAIME AGUIRRE Admitting Clinician Unavailable CHECO HERCULES Admitting Clinician Unavailable KATHRIN PRESCOTT Admitting Clinician Unavailable AYANNA CRAWFORD Admitting Clinician Unavailable ANGLE MCKEON Admitting Clinician Unavailable Payers Payer Name Policy Type Policy Number Effective Date Expiration Date S ourjuan UNITED MEDICARE [id number] 2019 HMO 00:00:00 CDC REVIEW [id number] 2020 00:00:00 Problems Condition Condition Condition Status Onset Resolution Last Treating Co mments Source Name Details Category Date Date Treatment Clinician Date Bright red Bright red Disease Active [facility] blood per blood per 05-14 [facility] rectum rectum 00:00: Medical 00 [place] Colitis Colitis Disease Active [facility] [place] Dehydratio Dehydratio Disease Active [facility] n n 04-24 [facility] [place] Elevated Elevated Disease Active [facility] 00[facility]: Medical 00 [place] Steroid-in Steroid-in Disease Active [facility] duced duced 9-07 [facility] hyperglyce hyperglyce 00:00: Me dical claudia claudia 00 Center Meningioma Meningioma Disease Active 2019-[address] [facility] 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-04 [facility] of right of right 00:00: Medica l kidney kidney 00 Center Fatigue Fatigue Disease Active 2019-[address] [facility] 00[facility] Center Hypothyroi Hypothyroi Disease Active 2019-[address] dism dism 8-15 [facility] Diabetes Diabetes Disease Active 2019[facility] mellitus mellitus [facility] Hypertensi Hypertensi Disease Active 2019-[address] on on 8-15 [facility] 00[facility] 00 Center 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 8-15 [facility] 00:00: Medical 00 Center Diverticul Diverticul Disease Active 2019-[address] itis of itis of 8-14 [facility] intestine intestine 00:00: Medi last with with 00 Center abscess abscess History of History Problem Resolve 2019-03-18 Memoria - of - d 13:10:14 l myocardial myocardial He rmann infarction infarction (context-d (context-d ependent ependent category) category) Resolved Problem 03/18/2019 [facility] Benign Benign Problem Active 2019-03-18 Cresencio joy neoplasm neoplasm 13:10:14 l of of Juanjo meninges meninges (disorder) (disorder) Active Problem 03/18/2019 [facility] Chronic Chronic Problem Active 2019-03-18 Me moria urinary urinary 13:10:14 l tract tract Juanjo infection infection (disorder) (disorder) Active Problem 03/18/2019 [facility] Giant cell Giant Problem Active 2019-03-18 M emoria arteritis cell 13:10:14 l (disorder) arteritis Her amaya (disorder) Active Problem 03/18/2019 [facility] Headache Headache Problem Active 2019-03-18 Memoria (finding) (finding) 13:10:14 l Active [place] Problem 03/18/2019 [facility] 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 13:10:14 l (finding) (finding) Herm jorje Active Problem 03/18/2019 [facility] Neuropathy Neuropath Problem Active 2019-03-18 Memoria (disorder) y 13:10:14 l (disorder) [place] n Active Problem 03/18/2019 [facility] Allergies, Adverse Reactions, Alerts Allergy Allergy Status Severity Reaction(s) Onset Inactive Treating Comm ents Source Name Type Date Date Clinician Meperidi Propensi Active Other (See hallucina [facility] to Comments) 8[facility]14 [facility] adverse 00:00: Medical reaction 00 Center s Morphine Propensi Active Rash [facility] ty to 8-14 [facility] adverse 00:00: Medical reaction 00 Center s MEPERIDI Allergy Active Other [facility] 8[facility]14 [facility] 00:[facility]: Medical 00 [place] MORPHINE Allergy Active Low Rash [facility] 00:[facility] Medical 00 Center morphine morphine Active Memori a l Juanjo Demerol Demerol Active Memoria l Juanjo NO KNOWN Allergy Active [facility] S Family History Family Member Diagnosis Comments Start Date Stop Date Source Natural brother Cancer [facility] Natural father Cancer [facility] Natural mother Diabetes [facility] Natural mother Heart disease [facility] Natural sister Breast cancer [facility] Natural sister Cancer [facility] Social History Social Habit Start Date Stop Date Quantity Comments Source History SDOH [facility] Alcohol Comment Medical C enter History SDOH [facility] Alcohol Std Drinks Medica l Center History SDOH [facility] Alcohol Binge Medical Tony ter Alcohol intake 2020-04-21 2020-04-[address] [facility] es 00:00:00 00:00:00 non-drinker of Medical Ce nter alcohol (finding) History SDOH 2020-04-21 2020-04-[address] [facility] Alcohol Frequency 00:00:00 00:00:00 [facility] Tobacco use and 2020-04-02 2020-04-[address] [facility] [facility] kes exposure 00:00:00 00:00:00 [facility] Social History 2018-06-12 [facility] 14:22:19 Sex Assigned At [address] kes 00:00:00 00:00:00 [facility] Smoking Status Start Date Stop Date Source Never sm[facility] Medications Ordered Filled Start Stop Current Ordering Indication Dosage Frequency Signature Comments Components Source Medication Medication Date Date Medication? Clinician (SIG) Name Name aspirin 81 2020-0 Yes 1{tbl} QD Take [address] MG EC 9-28 tablet by [facility] tablet 21:06: mouth Medical 43 daily. Center nitroglycer 2020-0 Yes 1{tbl} Place [address] in 9- tablet [facility] (NITROSTAT) 21:06: under the M edical 0.4 MG SL 43 tongue as Cente r tablet needed. predniSONE 2020-0 Yes 1{tbl} Q.5D Take [address] (DELTASONE) 9-28 tablet by Vikram es 20 MG 21:06: mouth 2 Medical tablet 43 (two) Center times daily. cycloSPORIN 2020-0 Yes 1[drp] Place [address] E 9- drop into [facility] (RESTASIS) 21:06: both eyes Me dical 0.05 % 43 as needed. [place] ophthalmic emulsion alpha 2020-0 Yes 1{tbl} QD Take [address] lipoic acid 9-28 tablet by Vikram es 600 mg Cap 21:06: mouth Medica l 43 daily. Center calcium 2020-0 Yes 1{tbl} QD Take [address] carbonate-v 9-28 tablet by Vikram es itamin D3 21:06: mouth Medical (CALCIUM- 43 daily. [place] TAMIN D) 500 mg(1,250mg) -200 unit per tablet insulin 2020-0 Yes 6U QD Inject [address] glargine 9-07 Units [facility] (LANTUS) 00:00: subcutaneo Med ical 100 unit/mL 00 usly Center injection nightly Use as directed2- 5 units depending on blood sugar . needles, 2020-0 Yes 1 box by [facility] insulin -07 [facility]ellane [facility] disposable 00:00: ous route Me dical (INSULIN 00 4 (four) Center PEN times NEEDLES) daily Ndle before meals and nightly. levothyroxi 2020-0 Yes 1{tbl} QD Take [address] ne 3-20 tablet by [facility] (SYNTHROID, 00:00: mouth Medic al LEVOTHROID) 00 daily. [place] 75 MCG tablet losartan 2020-0 Yes 1{tbl} QD Take 1 [facility] (COZAAR) 3-20 tablet by [facility] 100 MG 00:00: mouth Medical tablet 00 daily. Center diltiazem Yes 1{tbl} QD Take [address] (DILT-XR) 2-11 tablet by [facility] 180 mg 24 00:00: mouth Medical hr capsule 00 nightly. Marino noriega nortriptyli Yes See Memori a ne 10 mg 5-28 Instructio l oral 15:18: ns, 3 po Juanjo capsule 00 qhs, 0 Refill(s) Nortriptyli Yes PO, Memori a ne 5-28 Bedtime, 0 l 15:03: Refill(s) [place] 00 24 HR Yes 250 mg = 1 Memori a Divalproex 5-01 tab, PO, l Sodium 250 15:11: Bedtime, # H ermann MG Extended 00 30 tab, 3 Release Refill(s), Tablet Pharmacy: [Depakote] [facility] [place] butalbital Yes = 1 tab, Mem oria 5-01 PO, 0 l 14:28: Refill(s) Juanjo 00 Memantine Yes 10 mg = 2 Mem oria hydrochlori 1-11 tab, PO, l de 5 MG 17:46: BID, # 120 Herm jorje Oral Tablet 00 tab, 3 [Namenda] Refill(s), Pharmacy: [facility] 0.9 ML Yes 162 mg, Memoria tocilizumab 1-11 SUB-Q, 0 l 180 MG/ML 17:37: Refill(s) Her amaya Prefilled 00 Syringe [Actemra] topiramate 2017-08 No 25 mg = 1 Me moria 25 MG Oral 1-30 tab, PO, l Tablet 16:56: BID, # 60 [place] n [Topamax] 52 tab, 3 Refill(s), [facility] Insulin 2017-08 Yes See Memoria Glargine 1-30 Instructio l 100 UNT/ML 16:33: ns, SUB-Q He rmann Injectable 00 PRN, 0 Solution Refill(s) [Lantus] Tramadol 2017-08 Yes 50 mg, PO, Mem oria 1-30 PRN, PRN l 16:33: Pain topiramate 2017-08 No 25 mg = 1 Me moria 25 MG Oral 0-26 tab, PO, l Tablet 15:13: Bedtime, # Abigail nn [Topamax] 00 30 tab, 3 Refill(s), Pharmacy: [facility] [place] 2017-08 Yes 25 mg, PO, Memor ia 0-26 Daily, 0 l 13:58: Refill(s) Losartan 2017-08 Yes 100 mg, Memori a 0-26 PO, Daily, l 13:58: 0 Refill(s) Aspirin 2017-08 Yes 81 mg, PO, Cresencio joy 0-26 Daily, 0 l 13:58: Refill(s) Thyroxine 2017-08 Yes 75 Memoria 0-26 microgram, l 13:58: IV, Daily, 0 Refill(s) atorvastati 2017-08 Yes 10 mg, PO, Memoria n 0-26 Daily, 0 l 13:58: Refill(s) Nitroglycer 2017-08 Yes 0.4 mg, Mem oria in 0-26 SL, PRN, 0 l 13:58: Refill(s) Sertraline 2017-08 Yes 100 mg, Cresencio joy 0-26 PO, Daily, l 13:58: 0 Refill(s) Cranberry 2017-08 Yes 4,200 mg Cresencio joy 0-26 =, PO, l 13:58: Daily, 0 Refill(s) Vitamin D3 2017-08 Yes 1, PO, Memor ia 0-26 Daily, 0 l 13:58: Refill(s) Prednisone 2017-08 Yes 15 mg, PO, M emoria 0-26 Daily, l 13:58: Quantity sufficient , 0 Refill(s) Famotidine 2017-08 Yes 40 mg = 2 Me moria 20 MG Oral 0-26 tab, PO, l Tablet 13:58: Daily, 0 Refill(s) Amoxicillin 2017-08 No 2, PO, Cresencio joy 0-26 Daily, 0 l 13:58: Refill(s) Diltiazem 2017-08 Yes 120 mg, Memor ia 0-26 PO, Daily, l 13:58: 0 Juanjo 00 Refill(s) Furosemide 2017- Yes 20 mg, PO, M emoria 0-26 PRN, 0 l 13:58: Refill(s) [place] 00 sertraline 2017- Yes 1{tbl} QD Take [address] [facility] (ZOLOFT) 4-18 tablet by [facility] 100 MG 00:00: mouth Medical tablet 00 [...] 152.4 cm WEIGHT 2020-03-31 00:00:00 66.996 kg Height 2019-01-12 14:51:00 149.86 cm [facility] [place] BMI Calculated 2019-01-12 14:51:00 Loreneori al [place] Weight 2019-01-12 14:51:00 [facility] 2019-[facility]-12 14:51:00 [facility] Respitory Rate 2019-01-12 14:51:00 Mempan al Juanjo Systolic (mm Hg) 2019-01-12 14:51:00 Cresencio Gilmanann Diastolic (mm Hg) 2019-01-12 14:51:00 [facility] ana Geiger BMI Calculated 2018-12-16 14:12:00 Memori al Juanjo Weight 2018-12-16 14:12:00 [facility] [place]jo Height 2018-12-16 14:12:00 152.4 cm [facility] [place] Respitory Rate 2018-12-16 14:12:00 Memori al Juanjo Heart Rate 2018-12-16 14:12:00 [facility] [place] Systolic (mm Hg) 2018-12-16 14:12:00 Cresencio rial Juanjo Diastolic (mm Hg) 2018-12-16 14:12:00 Mem orial Juanjo BMI Calculated 2018-08-28 17:21:00 Memori al Juanjo Weight 2018-08-28 17:21:00 [facility] [place] Height 2018-08-28 17:21:00 152.4 cm [facility] Juanjo Respitory Rate 2018-08-28 17:21:00 Memori al [place] Systolic (mm Hg) 2018-08-28 17:21:00 Cresencio rial Juanjo Diastolic (mm Hg) 2018-08-28 17:21:00 Mem orial Juanjo Heart Rate 2018-08-28 17:21:00 [facility] [place] BMI Calculated 2018-07-17 16:27:00 Memori al [place] Weight 2018-07-17 16:27:00 [facility] [place] Height 2018-07-17 16:27:00 149.86 cm [facility] Juanjo Systolic (mm Hg) 2018-07-17 16:27:00 Cresencio rial [place] Diastolic (mm Hg) 2018-07-17 16:27:00 Mem orial Juanjo Heart Rate 2018-07-17 16:27:00 [facility] [place] BMI Calculated 2018-06-12 13:52:00 Memori al Juanjo Weight 2018-06-12 13:52:00 [facility] [place] Height 2018-06-12 13:52:00 152.4 cm [facility] [place] Heart Rate 2018-06-12 13:52:00 [facility] Juanjo Systolic (mm Hg) 2018-06-12 13:52:00 Cresencio rial [place] Diastolic (mm Hg) 2018-06-12 13:52:00 Mem orial Juanjo Procedures Procedure Date / Time Performed Performing Clinician [facility] e Laser eye surgery Memorial Abigail nn Nephrectomy [facility] Juanjo Temporal artery biopsy [facility] Juanjo Plan of Care Planned Activity Planned Date Details Comments Source Future Scheduled 2022-04-18 INFLUENZA VACCINE (#1) [facility] 00:00:00 [code = INFLUENZA Medical Ce nter VACCINE (#1)] Future Scheduled 2021-08-[address] [facility] Test 00:00:00 (12+) [code = Medical Center DEPRESSION SCREENING (12+)] Future Scheduled 2021-08-18 FALLS RISK SCREENING [facility] Test 00:00:00 [code = FALLS RISK Medical C enter SCREENING] Future Scheduled 2021-04-[address] [facility] Test 00:00:00 Counseling and Medical Cente r Screening (12+) [code = Tobacco Cessation Counseling and Screening (12+)] Future Scheduled 2021-01-20 Urine screening for [facility] Test 00:00:00 protein (procedure) Medical Center [code = 515754076] Future Scheduled 2020-11-[address] [facility] Test 00:00:00 measurement Medical Center (procedure) [code = 07194632] Future Scheduled 2020-07-[address] [facility] Test 00:00:00 WELLNESS (YEAR 2 or Medical Center FIRST YEAR if no IPPE) [code = MEDICARE ANNUAL WELLNESS (YEAR 2 or FIRST YEAR if no IPPE)] Future Scheduled 1991 SHINGLES VACCINES ([address] [facility] Test 00:00:00 of 2) [code = SHINGLES Medic al Center VACCINES (1 of 2)] Future Scheduled 1960 DTAP/TDAP/TD VACCINES [facility] 00:00:00 (1 - Tdap) [code = Medical C enter DTAP/TDAP/TD VACCINES (1 - Tdap)] Future Scheduled [address]ABETIC EYE EXAM [facility] 00:00:00 [code = DIABETIC EYE Medical Center EXAM] Future Scheduled [address] [facility] Test 00:00:00 examination Medical Center (regime/therapy) [code = 028567362] Future Scheduled 1947 PNEUMOCOCCAL 65+ YRS [facility] Test 00:00:00 (1 - PCV) [code = Medical Ce nter PNEUMOCOCCAL 65+ YRS (1 - PCV)] Future Scheduled 1942-03-07 COVID-19 VACCINE (#1) [facility] 00:00:00 [code = COVID-[address] VACCINE (#1)] Future Scheduled 1940 DXA SCAN [code = DXA [facility] Test 00:00:00 SCAN] Medical Center Encounters Start End Encounter Admission Attending Care Care Encounter Source Date/Time Date/Time Type Type Clinicians Facility Department ID 2021-05-23 Inpatient ER ANNE AGUIRRE Gastro [id number] [facility] 08:28:59 JAIME 2021-05-23 Inpatient ER [facility]EDES [facility] [id number] [facility] 07:11:14 , CHECO Med 2020-04-21 Inpatient ER [facility] Surgery [id number] [facility] 17:35:00 KATHRIN 2020-03-31 [facility] [id number] [facility] 07:46:00 JAIME 2019-01-12 2019-01-13 Outpatient nullFlavo MNA [id number] Memoria 14:30:00 04:59:59 r Neurology 05 l Wendy Juanjo 2019-01-12 2019-01-12 Outpatient JOAN RyanMISCHER MHMISCHER [id number] 09:30:00 23:59:59 Slade Daily Ray 2019-01-12 2019-01-12 Outpatient MHIE MHIE [id number] Memoria 09:30:00 09:30:00 05 ashley [place] 2018-12-22 2018-12-24 Phone nullFlavo MNA [id number] Memoria 20:13:43 04:59:59 Message r Neurology 01 l Wendy [place] 2018-12-22 2018-12-23 Outpatient MHMISCHER MHMISCHER [id number] 15:13:43 23:59:59 2018-12-16 2018-12-17 Outpatient nullFlavo MNA [id number] Memoria 14:00:00 04:59:59 r Neurology 04 l Wendy Geiger 2018-12-16 2018-12-16 Outpatient KRISTOPHER RyanSCHER MHMISCHER [id number] 09:00:00 23:59:59 Slade Deandre Bell 2018-12-16 2018-12-16 Outpatient MHIE MHIE [id number] Memoria 09:00:00 09:00:00 04 ashley Geiger 2018-10-30 2018-10-30 Outpatient MHIE MHIE [id number] Memoria 10:00:00 10:00:00 03 ashley Geiger 2018-08-28 2018-08-29 Outpatient nullFlavo MNA [id number] Memoria 16:45:00 05:59:59 r Neurology 02 l Wendy Gilmanann 2018-08-28 2018-08-28 Outpatient KRISTOPHER RyanSCHER MHMISCHER [id number] 10:45:00 23:59:59 Slade 02 Ray 2018-08-28 2018-08-28 Outpatient MHIE OUSMANE [id number] Memoria 10:45:00 10:45:00 02 ashley Geiger 2018-08-05 2018-08-07 Outside nullFlavo MNA [id number] Memoria 21:20:00 05:59:59 Medical r Neurology 00 l Records [place] Juanjo 2018-08-05 2018-08-06 Outpatient MHMISCHER MHMISCHER [id number] 15:20:00 23:59:59 00 2018-07-17 2018-07-18 Outpatient nullFlavo MNA [id number] Memoria 16:15:00 05:59:59 r Neurology 01 l Wendy Juanjo 2018-07-17 2018-07-17 Outpatient KRISTOPHER RyanSCHER MISCHER [id number] 10:15:00 23:59:59 Slade 01 Ray 2018-07-17 2018-07-17 Outpatient OUSMANE ROMEO [id number] Memoria 10:15:00 10:15:00 01 ashley GilmanJuanjo 2018-06-12 2018-06-13 Outpatient nullFlavo MNA [id number] Memoria 14:00:00 04:59:59 r Neurology 00 l Wendy Juanjo 2018-06-12 2018-06-12 Outpatient KRISTOPHER RyanSCHROLLY FRANCOMISCHER [id number] 09:00:00 23:59:59 Slade 00 Ray 2018-06-12 2018-06-12 Outpatient MHIE MHIE [id number] Memoria 09:00:00 09:00:00 00 ashley Geiger Results Test Description Test Time Test Comments Results Result Comments Source POCT-GLUCOSE METER 2020-05-15 12:07:00 Test Item Value Reference Range Interpretation Comme nts POC-GLUCOSE METER (BEAKER) 145 mg/dL 70-110 H : TESTED AT [address] (test code = 1538) [place] [address]: Library Media Specialist/Techni sebastian ID = [id number] for JAYSON OVIEDO SARS-COV2/RT-PCR ([facility])2020-05-15 10:07:00 Test Item Value Reference Range Interpretation Comments SARS-COV2/RT-PCR (test Negative Not Detected, Negative, code = 8415678) See external report for linked test SARS-COV-2 PERFORMING LAB [facility] ROLY (test code = 2824548) Negative result for this test determines that [...] individuals suspected of COVID-19 by their healthcare provider.This test [...] justifying the authorization of the emergency use ofin vitro diagnostic tests for detection and/or diagnosis of COVID-19 is terminated under Section 564(b)(2) of the Act or the EUA is revoked under Section 564(g) of the Act.Fact Sheet for Healthcare Prov iders:https://www.[employer]/sites/default/files/product/documents/Fact_Sheet_HC _Oeoltiuip_Swck_BVIX-RcC-0.pdfFact Sheet for Healthcare Patients:https://www.[employer]/sites/default/files/product/docume nts/Nufe_Kscxq_Hralmgwt_Fbnk_DIGN-AyQ-5.pdfPerforming Laboratory:[facility], [place] [id number] METER 2020-05-15 07:57:00 Test Item Value Reference Range Interpretation Comments POC-GLUCOSE METER 145 mg/dL 70-110 H : TESTED A T [facility] 6720 (BEAKER) (test code = JEANE Noriega [place], 1538) [address]: Library Media Specialist/Techni sebastian ID = [id number] for RUDDY TSUBBS BASIC METABOLIC [id number] 06:06:00 Test Item Value Reference Range Interpretation [...] S NOT APPLICABLE FOR DIALYSIS PATIEN TS. Library Media Specialist ID - PIAYA LSpecimen slightly ictericCBC (HEMOGRAM [...] WBC 0-0 (test code = 413) POCT-GLUCOSE [id number] 21:59:00 Test Item Value Reference Range Interpretation Comments POC-GLUCOSE METER 129 mg/dL 70-110 H : TESTED A T [facility] 6720 (BEAKER) (test code = [facility], 1538) [address]: Library Media Specialist/Techni sebastian ID = [id number] for ANDREW FOOTE CAROLIVANACheryle LIMONE POCT-GLUCOSE [id number] 21:20:00 Test Item Value Reference Range Interpretation Comments POC-GLUCOSE METER 68 mg/dL 70-110 L : TESTED A T [facility] 6720 (BEAKER) (test code = [facility], 1538) 9[address]: Library Media Specialist/Techni sebastian ID = [id number] for THAD ARROYO HEMOGLOBIN AND [id number] 16:58:00 Test Item Value Reference Range Interpretation Comments HEMOGLOBIN (BEAKER) (test code = 12.1 GM/DL 11.2-15.7 410) HEMATOCRIT (BEAKER) (test code = 36.7 % 34.1-44.9 411) Library Media Specialist ID - [id number] [id number] 10:03:00 Test Item Value Reference Range Interpretation Comments HEMOGLOBIN A1C (BEAKER) (test code = 8.4 % 4.3-6.1 H 368) HEMOGLOBIN AND [id number] 09:18:00 Test Item Value Reference Range Interpretation Comments HEMOGLOBIN (BEAKER) (test code = 12.8 GM/DL 11.2-15.7 410) HEMATOCRIT (BEAKER) (test code = 38.7 % 34.1-44.9 411) Library Media Specialist ID - [id number] AND PARASITE [id number] 12:20:00 Test Item Value Reference Range Interpretation [...] (test seen seen code = 248) BLOOD [id number] 08:00:00 Test Item Value Reference Range Interpretation Comments CULTURE (BEAKER) (test No growth in 5 days code = 1095) BLOOD [id number] 08:00:00 Test Item Value Reference Range Interpretation Comments CULTURE (BEAKER) (test No growth in 5 days code = 1095) STOOL CULTURE + SHIGA [id number] 11:02:00 Test Item Value Reference Range Interpretation Comments CULTURE (BEAKER) No Salmonella, Shigella (test code = 1095) or Campylobacter isolated POCT-GLUCOSE [id number] 12:51:00 Test Item Value Reference Range Interpretation Comments POC-GLUCOSE METER 255 mg/dL 70-110 H : Notified RN/MD: ([facility]) (test code = TESTED AT [place] [address] 1538) [facility] [address]: Library Media Specialist/Techni sebastian ID = [id number] for AN KAITLIN POLLARD POCT-GLUCOSE [id number] 08:22:00 Test Item Value Reference Range Interpretation Comments POC-GLUCOSE METER 197 mg/dL 70-110 H : TESTED A T [facility] 6720 ([facility]) (test code = [facility], 1538) [address]: Library Media Specialist/Techni sebastian ID = [id number] for AN KAITLIN POLLARD BASIC METABOLIC [id number] 05:46:00 Test Item Value Reference Range Interpretation [...] S NOT APPLICABLE FOR DIALYSIS PATIEN TS. Library Media Specialist ID - EVELIA MSpecimen slightly ictericPOCT-GLUCOSE [id number] 22:22:00 Test Item Value Reference Range Interpretation Comments POC-GLUCOSE METER 323 mg/dL 70-110 H : TESTED A T [facility] 6720 (BEAKER) (test code = [facility], 153) [address]: Library Media Specialist/Techni sebastian ID = [id number] for Tai Lara POCT-GLUCOSE [id number] 17:46:00 Test Item Value Reference Range Interpretation Comments POC-GLUCOSE METER 245 mg/dL 70-110 H : TESTED A T [facility] 6720 (BEAKER) (test code = [facility], 1538) [address]: Library Media Specialist/Techni sebastian ID = [id number] for TAYLOR KEANE POCT-GLUCOSE [id number] 12:12:00 Test Item Value Reference Range Interpretation Comments POC-GLUCOSE METER 317 mg/dL 70-110 H : TESTED A T [facility] 6720 (BEAKER) (test code = [facility], 153) 14052: Library Media Specialist/Techni sebastian ID = [id number] for TAYLOR KEANE SHIGA TOXIN [id number] 10:32:00 Test Item Value Reference Range Interpretation Comments SHIGA TOXIN 1 (BEAKER) (test Not detected Not detected code = 2177) SHIGA TOXIN 2 (BEAKER) (test Not detected Not detected code = 2179) STOOL PATH [id number] 10:15:00 Test Item Value Reference Range Interpretation Comments PATHOGEN EXAM CHARGED (BEAKER) (test Done code = 2381) POCT-GLUCOSE [id number] 08:57:00 Test Item Value Reference Range Interpretation Comments POC-GLUCOSE METER 205 mg/dL 70-110 H : TESTED A T [facility] 6720 (BEAKER) (test code = JEANE Noriega [place], 1538) [address]: Library Media Specialist/Techni sebastian ID = [id number] for TAYLOR KEANE HEMOGLOBIN [id number] 08:19:00 Test Item Value Reference Range Interpretation Comments HEMOGLOBIN A1C (BEAKER) (test code = 8.4 % 4.3-6.1 H 368) BASIC METABOLIC [id number] 07:56:00 Test Item Value Reference Range Interpretation [...] S NOT APPLICABLE FOR DIALYSIS PATIEN TS. Library Media Specialist ID - PIAYA LSpecimedorys slightly ictericPOCT-GLUCOSE [id number] 22:55:00 Test Item Value Reference Range Interpretation Comments POC-GLUCOSE METER 229 mg/dL 70-110 H : TESTED A T [facility] 6720 (BEAKER) (test code = JEANE Noriega [place], 1538) [address]: Library Media Specialist/Techni sebastian ID = [id number] for Karla Jackson POCT-GLUCOSE [id number] 17:45:00 Test Item Value Reference Range Interpretation Comments POC-GLUCOSE METER 306 mg/dL 70-110 H : TESTED A T [facility] 6720 (BEAKER) (test code = [facility], 1538) 24[address]: Library Media Specialist/Techni sebastian ID = [id number] for DI EPSTEIN POCT-GLUCOSE [id number] 11:59:00 Test Item Value Reference Range Interpretation Comments POC-GLUCOSE METER 150 mg/dL 70-110 H : TESTED A T [facility] 6720 (BEAKER) (test code = [facility], 1538) [address]: Library Media Specialist/Techni sebastian ID = [id number] for DI EPSTEIN [id number] 10:18:00 Test Item Value Reference Range Interpretation Comments POTASSIUM (BEAKER) 4.9 meq/L 3.5-5.1 Specimen slightly (test code = 379) hemolyzed Library Media Specialist ID - EVELIA MPOCT-GLUCOSE [id number] 08:04:00 Test Item Value Reference Range Interpretation Comments POC-GLUCOSE METER 156 mg/dL 70-110 H : TESTED A T [facility] 6720 (BEAKER) (test code = [facility], 1538) 22420: Library Media Specialist/Techni sebastian ID = [id number] for ID EPSTEIN BASIC METABOLIC [id number] 05:51:00 Test Item Value Reference Range Interpretation [...] S NOT APPLICABLE FOR DIALYSIS PATIEN TS. Library Media Specialist ID - PIAYA LSpecimen slightly ictericC. DIFFICILE GDH [id number] 05:03:00 Test Item Value Reference Range Interpretation Comments CDT TOXIN (test code Negative Negative = [id number]) CDT GDH ANTIGEN Positive Negative A C. difficile present but (test code = toxin not detec dominic. [id number]) Indicates colon ization with non-toxige faith strain or level of tox in below detectable leve ls. No need for enteri c isolation. Latasha tment is rarely needed ( only when strong clinical suspicion for Clostridium difficile infection) Testing performed by [employer] Rapid Cassette Assay. For GDH, published sensitivity of the assay is 98.7% compared to cytotoxicity testing. For Toxin AB, published sensitivity is 87.8% and specificity 99.4% compared to cytotoxicity testing.Verification of kit performance was done by the [facility] prior to clinical use.FECAL [id number] 00:34:00 Test Item Value Reference Range Interpretation Comments FECAL LEUKOCYTES No fecal leukocytes No fecal leukocytes (BEAKER) (test code = seen seen 992) POCT-GLUCOSE [id number] 22:14:00 Test Item Value Reference Range Interpretation Comments POC-GLUCOSE METER 224 mg/dL 70-110 H : [facility]LoraxAg[facility] (test code = [facility], 1538) 31712: Library Media Specialist/Techni sebastian ID = [id number] for ES BLOCK, SHAHZAD POCT-GLUCOSE [id number] 14:51:00 Test Item Value Reference Range Interpretation Comments POC-GLUCOSE METER 120 mg/dL 70-110 H : [facility]LoraxAg[facility] (test code = [facility] [place] [facility], 1538) 14248: Library Media Specialist/Techni sebastian ID = [id number] for SA NCHEZ, MIYA BASIC METABOLIC [id number] 11:35:00 Test Item Value Reference Range Interpretation [...] S NOT APPLICABLE FOR DIALYSIS PATIEN TS. Library Media Specialist ID - EVELIA MSpecimen slightly [id number] 11:32:00 Test Item Value Reference Range Interpretation Comments MAGNESIUM (BEAKER) (test code = 1.9 mg/dL 1.6-2.6 627) Library Media Specialist ID - EVELIA MHEPATIC FUNCTION [id number] 11:32:00 Test Item Value Reference Range Interpretation [...] code = 107 U/L 6-55 H 347) Library Media Specialist ID - EVELIA MSpecimen slightly ictericPROTHROMBIN [id number] 07:18:00 Test Item Value Reference Range Interpretation [...] is 2.5-3.5 for patients wiht mechanical heart valves.CBC W/PLT COUNT & AUTO [id number] 07:11:00 Test Item Value Reference Range Interpretation [...] PERCENT (BEAKER) (test code = 2801) BLOOD [id number] 23:00:00 Test Item Value Reference Range Interpretation Comments CULTURE (BEAKER) (test No growth in 5 days code = 1095) BLOOD [id number] 23:00:00 Test Item Value Reference Range Interpretation Comments CULTURE (BEAKER) (test No growth in 5 days code = 1095) PROTEIN ELECTROPHORESIS, [id number] 13:55:00 Test Item Value Reference Range Interpretation [...] (BEAKER) (test code = mild acute inflammation 2610) coupled with urine protein loss and/or protein-losing enteropathy. No monoclonal bands detected. [id number] Yudith Emanuel MD (BEAKER) (test code = (electronic signature) 2164) PROTEIN TOTAL SERUM, 5.0 gm/dL 6.0-8.3 L SPEP (BEAKER) (test code = 8935) Library Media Specialist ID - EVELIA MHEPATITIS PANEL, [id number] 17:11:00 Test Item Value Reference Range Interpretation Comments HEPATITIS A IGM ANTIBODY (BEAKER) Nonreactive Nonreactive (test code = 498) HEPATITIS B CORE IGM ANTIBODY Nonreactive Nonreactive (BEAKER) (test code = 645) HEPATITIS C ANTIBODY (BEAKER) Nonreactive Nonreactive (test code = 367) HEPATITIS B SURFACE ANTIGEN (2) Nonreactive Nonreactive (BEAKER) (test code = 2585) Library Media Specialist ID - DBPOCT-GLUCOSE [id number] 16:42:00 Test Item Value Reference Range Interpretation Comments POC-GLUCOSE METER 236 mg/dL 70-110 H : TESTED A T [facility] 6720 (BEAKER) (test code = [facility] [place] [facility], 1538) 285[address]: Library Media Specialist/Techni sebastian ID = [id number] for Giulia Wade POCT-GLUCOSE [id number] 12:36:00 Test Item Value Reference Range Interpretation Comments POC-GLUCOSE METER 276 mg/dL 70-110 H : TESTED A T [facility] 6720 (BEAKER) (test code = [facility] [place] [facility], 1538) [address]80: Library Media Specialist/Techni sebastian ID = [id number] for Giulia Wade HEMOGLOBIN [id number] 12:07:00 Test Item Value Reference Range Interpretation Comments HEMOGLOBIN A1C (BEAKER) (test code = 8.0 % 4.3-6.1 H 368) COMPREHENSIVE METABOLIC [id number] 11:48:00 Test Item Value Reference Range Interpretation [...] S NOT APPLICABLE FOR DIALYSIS PATIEN TS. Library Media Specialist ID Juan A Davilaecimen moderately ictericLIPID [id number] 11:48:00 Test Item Value Reference Range Interpretation Comments TRIGLYCERIDES (BEAKER) 225 mg/dL Speci men slightly (test code = 540) hemolyzed CHOLESTEROL (BEAKER) 241 mg/dL Specime n slightly (test code = 631) hemolyzed HDL CHOLESTEROL (BEAKER) 60 mg/dL (test code = 976) LDL CHOLESTEROL 136 mg/dL CALCULATED (BEAKER) (test code = 633) Triglyceride Reference Range: Low Risk <150 Borderline 150-199 High Risk 200- 499 Very High Risk >=500Cholesterol Reference Range: Low Risk <200 Borderline 200-239 High Risk >240HDL Cholesterol Reference Range: Low Risk >=60 High Risk <40LDL Cholesterol Reference Range: Optimal <100 Near Optimal 100-129 Borderline 130-159 High 160-189 Very High >=190 Library Media Specialist ID Juan A GOLDMAN MSpecimen moderately ictericTSH/FREE T4 IF [id number] 10:29:00 Test Item Value Reference Range Interpretation Comments THYROID STIMULATING HORMONE 3.805 uIU/mL 0.350-4.940 (BEAKER) (test code = 772) Library Media Specialist ID - [id number] 09:30:00 Test Item Value Reference Range Interpretation Comments FERRITIN (BEAKER) (test code = 292.76 ng/mL 5.00-275.00 H 361) Library Media Specialist ID - AAHAMIDVITAMIN B12 AND [id number] 09:30:00 Test Item Value Reference Range Interpretation Comments VITAMIN B12 (BEAKER) (test code = 1155 pg/mL 213-816 H 774) FOLATE (BEAKER) (test code = 362) 8.50 ng/mL >=7.00 Library Media Specialist ID - AAHAMIDPOCT-GLUCOSE [id number] 08:10:00 Test Item Value Reference Range Interpretation Comments POC-GLUCOSE METER 197 mg/dL 70-110 H : TESTED A T [facility] 6720 (BEAKER) (test code = [place] [place], 1538) [address]: Library Media Specialist/Techni sebastian ID = [id number] for Va Giulia mckee MR, BRAIN, [id number] 02:52:00Unlisted Reason for Exam - Click Yes and Enter Reason Below->NoFINAL REPORT MRI Brain with and without contrast CLINICAL HISTORY: Brain mass or lesion, follow-up Technique: MRI of the brain utilizing axial T1, T2, FLAIR, GRE, DWI, sagittal T1;and postgadolinium axial, sagittal, and coronal T1-weighted images. [...] T2 FLAIR hyperintensities typical of chronic microangiopathy ischemicchanges present.. Left temporal lobe periventricular 3 mm [...] lesion consistent with a meningioma. The lesion compress es/invades of the right transverse sinus which remains patent likely due to collateral veins. Signed: Rao Torre MDReport Verified Date/Time: 04/24/2020 02:52:33 U/S, ABDOMINAL, [id number] 23:25:00Abdomen limited area? Add comment if clarification [...] is present in the abdomen. Partially seen aortais unremarkable. Impression: No acute findings. Cholecystectomy and right nephrectomy. . Signed: Rao Torre MDReport Verified Date/Time: 04/23/2020 23:25:58 POCT-GLUCOSE [id number] 23:17:00 Test Item Value Reference Range Interpretation Comments POC-GLUCOSE METER 206 mg/dL 70-110 H : TESTED A T [place] [address] ([facility]) (test code = [place] [facility], 1538) [address]09: Library Media Specialist/Techni sebastian ID = [id number] for RONEL MUSTAFAA POCT-GLUCOSE [id number] 17:40:00 Test Item Value Reference Range Interpretation Comments POC-GLUCOSE METER 249 mg/dL 70-110 H : Notified RN/: ([facility]) (test code = TESTED AT [facility] 6720 1538) [facility], [address]: Library Media Specialist/Techni sebastian ID = [id number] for Jazmin Sandoval CT, BRAIN, WITHOUT [id number] 10:32:00Unlisted Reason for Exam - Click Yes [...] adjustment of the mA/kV was utilized to reducethe radiation dose to as low as reasonably [...] to chronic small vessel ischemic disease. Osseous s tructures: No fracture. No suspicious lesion. Paranasal sinuses and mastoid air cells: No evidence of sinusitis. Mastoids are clear. Orbital contents: Globes are intact. IMPRESSION: Densely calcified right posterior fossa lesion, possibly extending into the transverse sinus. MRI with and without contrast is recommended for further evaluation. Signed: Stephanie Rangel MDReport Verified Date/Time: 04/23/2020 10:32:40 CBC [...] (BEAKER) (test code = 2801) BASIC METABOLIC [id number] 05:03:00 Test Item Value Reference Range Interpretation [...] S NOT APPLICABLE FOR DIALYSIS PATIEN TS. Library Media Specialist ID - EVELIA Leaimen moderately ictericHEPATIC FUNCTION [id number] 05:03:00 Test Item Value Reference Range Interpretation [...] Specimen moderately (test code = 347) hemolyzed Library Media Specialist ID - EVELIA Davilaecimen moderately ictericPOCT-GLUCOSE [id number] 04:01:00 Test Item Value Reference Range Interpretation Comments POC-GLUCOSE METER 193 mg/dL 70-110 H : TESTED A T [facility] 6720 (BEAKER) (test code [facility], = 1538) [address]: Library Media Specialist/Techni sebastian ID = [id number] for ESME RUSSELL POCT-GLUCOSE [id number] 21:04:00 Test Item Value Reference Range Interpretation Comments POC-GLUCOSE METER 198 mg/dL 70-110 H : TESTED A T [facility] 6720 (BEAKER) (test code = [place] [facility], 1538) [address]: Library Media Specialist/Techni sebastian ID = [id number] for Alla Molina POCT-GLUCOSE [id number] 16:17:00 Test Item Value Reference Range Interpretation Comments POC-GLUCOSE METER 266 mg/dL 70-110 H : TESTED A T [facility] 6720 (BEAKER) (test code = [place] [facility], 1538) [address]: Library Media Specialist/Techni sebastian ID = [id number] for BRUCE DUMONT SARS-COV2/RT-PCR ([facility])2020-04-22 14:59:00 Test Item Value Reference Range Interpretation Comments SARS-COV2/RT-PCR (test Negative Not Detected, Negative, code = 4284142) See external report for linked test SARS-COV-2 PERFORMING LAB [facility] (test code = 7742414) Negative result for this test determines that [...] individuals suspected of COVID-19 by their healthcare provider.This test [...] justifying the authorization of the emergency use ofin vitro diagnostic tests for detection and/or diagnosis of COVID-19 is terminated under Section 564(b)(2) of the Act or the EUA is revoked under Section 564(g) of the Act.Fact Sheet for Healthcare Prov iders:https://www.[employer]/sites/default/files/product/documents/Fact_Sheet_HC _Oppvfovwq_Ttfp_LHPE-UvL-1.pdfFact Sheet for Healthcare Patients:https://www.[employer]/sites/default/files/product/docume nts/Mrqv_Dswxo_Rqfhtbnf_Hjgs_WANR-ElO-6.pdfPerforming Laboratory:[facility], [place] [address]LVYJ-YURUHWL METER 2020-04-22 12:21:00 Test Item Value Reference Range Interpretation Comments POC-GLUCOSE METER 210 mg/dL 70-110 H : TESTED A T [facility] 6720 (BEAKER) (test code = [place] [facility], 1538) [address]: Library Media Specialist/Techni sebastian ID = [id number] for BRUCE DUMONT [id number] 11:00:00 Test Item Value Reference Range Interpretation Comments PHOSPHORUS (BEAKER) (test code = 3.1 mg/dL 2.3-4.7 604) Library Media Specialist ID - EVELIA [id number] 11:00:00 Test Item Value Reference Range Interpretation Comments MAGNESIUM (BEAKER) (test code = 1.9 mg/dL 1.6-2.6 627) Library Media Specialist ID - EVELIA MBASIC METABOLIC [id number] 11:00:00 Test Item Value Reference Range Interpretation [...] S NOT APPLICABLE FOR DIALYSIS PATIEN TS. Library Media Specialist ID - EVELIA MSpecimen moderately ictericHEPATIC FUNCTION [id number] 11:00:00 Test Item Value Reference Range Interpretation [...] code = 112 U/L 6-55 H 347) Library Media Specialist ID - EVELIA MSpecimen moderately ictericPOCT-GLUCOSE [id number] 08:40:00 Test Item Value Reference Range Interpretation Comments POC-GLUCOSE METER 187 mg/dL 70-110 H : [facility] ([facility] (test code = [place], 1538) [address]: Library Media Specialist/Techni sebastian ID = [id number] for BRUCE DUMONT CBC W/PLT COUNT & AUTO [id number] 07:04:00 Test Item Value Reference Range Interpretation [...] PERCENT (BEAKER) (test code = 2801) POCT-GLUCOSE [id number] 23:41:00 Test Item Value Reference Range Interpretation Comments POC-GLUCOSE METER 211 mg/dL 70-110 H : TESTED A T [facility] 6720 (BEAKER) (test code = [place], 1538) [address]: Library Media Specialist/Techni sebastian ID = [id number] for SHABBIR BEAN URINALYSIS W/ [id number] 21:58:00 Test Item Value Reference Range Interpretation [...] = 516) SOURCE(BEAKER) (test code = 2795) Library Media Specialist ID - [auto]Library Media Specialist ID - hankFUNGUS CULTURE + [id number] 18:07:00 Test Item Value Reference Range Interpretation Comments CULTURE (BEAKER) A 3+ Lorri albicans (test code = 1095) FUNGUS SMEAR No fungi seen (BEAKER) (test code = 1406) ANAEROBIC [id number] 18:52:00 Test Item Value Reference Range Interpretation Comments CULTURE (BEAKER) (test No anaerobes isolated code = 1095) CBC W/PLT COUNT & AUTO [id number] 06:39:00 Test Item Value Reference Range Interpretation [...] (BEAKER) (test code = 2801) COMPREHENSIVE METABOLIC [id number] 06:17:00 Test Item Value Reference Range Interpretation [...] S NOT APPLICABLE FOR DIALYSIS PATIEN TS. Library Media Specialist ID - EVELIA [facility]OL[facility] [id number] 05:24:00 Test Item Value Reference Range Interpretation [...] S NOT APPLICABLE FOR DIALYSIS PATIEN TS. Library Media Specialist ID - EDASIWOUND CULTURE + GRAM [id number] 10:29:00 Test Item Value Reference Range Interpretation [...] <1+ budding yeast (BEAKER) (test code = 430632) CBC W/PLT COUNT & AUTO [id number] 05:33:00 Test Item Value Reference Range Interpretation [...] (BEAKER) (test code = 2801) COMPREHENSIVE METABOLIC [id number] 05:08:00 Test Item Value Reference Range Interpretation [...] S NOT APPLICABLE FOR DIALYSIS PATIEN TS. Library Media Specialist ID - EDASISpecimen slightly ictericCOMPREHENSIVE METABOLIC PANEL [...] S NOT APPLICABLE FOR DIALYSIS PATIEN TS. Library Media Specialist ID - PIAYA LSpecimen slightly ictericCBC W/PLT COUNT & AUTO [id number] 05:03:00 Test Item Value Reference Range Interpretation [...] (BEAKER) (test code = 2801) CT, DRAINAGE, [id number] 12:12:00Reason for exam:->Diverticulitis with increasing size of abscessFINAL REPORT PROCEDURE: CT, DRAINAGE, ABDOMINAL DOSE REDUCTION: The examinationwas performed according to departmental dose-optimization program which includes automated exposure c ontrol, adjustment of the mA and/or kV according to patient size and/or use of iterative reconstruction technique. HISTORY: Diverticulitis with increasing size of abscess Library Media Specialist: Bam Ko MD Moderate sedation: See nursing [...] dilated using serial dilators. Subsequently a 8 [place] all-purpose drainage catheter was advanced into the [...] MDReport Verified Date/Time: 04/01/2020 12:12:30 Reading Location: [facility] C0[facility] Transitional Reading Room CBC W/PLT COUNT & AUTO [id number] 06:34:00 Test Item Value Reference Range Interpretation [...] 0-1 PERCENT (BEAKER) (test code = 2801) [id number] 06:33:00 Test Item Value Reference Range Interpretation Comments MAGNESIUM (BEAKER) 2.0 mg/dL 1.6-2.6 Specimen slightly (test code = 627) hemolyzed Library Media Specialist ID - EVELIA [id number] 06:33:00 Test Item Value Reference Range Interpretation Comments PHOSPHORUS (BEAKER) 2.0 mg/dL 2.3-4.7 L Specimen slightly (test code = 604) hemolyzed Library Media Specialist ID - EVELIA MCOMPREHENSIVE METABOLIC [id number] 06:33:00 Test Item Value Reference Range Interpretation [...] S NOT APPLICABLE FOR DIALYSIS PATIEN TS. Library Media Specialist ID - EVELIA MSpecimen slightly ictericCOMPREHENSIVE METABOLIC [...] S NOT APPLICABLE FOR DIALYSIS PATIEN TS. Library Media Specialist ID - MICHELL CSpecimen slightly [id number] 09:49:00 Test Item Value Reference Range Interpretation Comments MAGNESIUM (BEAKER) (test code = 2.1 mg/dL 1.6-2.6 627) Library Media Specialist ID - MICHELL CLACTIC ACID, [id number] 09:45:00 Test Item Value Reference Range Interpretation Comments LACTATE BLOOD VENOUS (2) (BEAKER) 1.05 mmol/L 0.50-2.20 (test code = 2872) Library Media Specialist ID - MICHELL [id number] 09:35:00 Test Item Value Reference Range Interpretation [...] is 2.5-3.5 for patients wiht mechanical heart valves.CBC W/PLT COUNT & AUTO [id number] 09:26:00 Test Item Value Reference Range Interpretation [...] % 0-1 PERCENT (BEAKER) (test code = 8723)
[2022-07-31] MEDS ORDERED: NA CHLORIDE 0.9% 1,000 ML ONE (14:12)
--- NOTE | 2022-07-31 15:10 | RAD REPORT ---
EXAM DESCRIPTION: US - UPPER EXTREMITY VENOUS UNILATE - 07/31/2022 2:50 pm CLINICAL HISTORY: Right upper extremity pain COMPARISON: None. FINDINGS: The right internal jugular, subclavian, brachial, axillary, cephalic, basilic, radial and ulnar veins demonstrate phasic signal. The veins are generally compressible. Doppler demonstrates good flow IMPRESSION: No evidence of thrombus involving the right upper extremity
[2022-07-31 15:23] LABS: Absolute Lymphocytes (CBC) 0.8 K/uL (0.7-4.9); Hematocrit 36.3 % (36.0-45.0); Lymphocytes % 7.5 % (15.3-44.8); MCV 86.3 fL (80-100); MPV 8.5 fL (7.6-11.3)
--- NOTE | 2022-07-31 15:32 | EDPHYS ---
Physician Documentation [facility] Name: Radha Ocampo Age: 81 yrs Sex: Female : 1940 Arrival Date: 07/31/2022 Time: 12:47 Bed 25 Private MD: Toby Parks V ED Physician [place] HPI: 07/31 14:07 This 81 yrs old Female presents to ER via Ambulatory with complaints of cheri Shoulder Injury, Hand Swelling - arm swelling. 14:07 The patient or guardian complains of decreased range of motion, pain, that is acute. cheri right shoulder. Context: The problem was sustained at an unknown site, resulted from an unknown reason, The patient experiences decreased range of motion, The patient reports no obvious deformity. Onset: The symptoms/episode began/occurred 14 day(s) ago. Modifying factors: the symptoms are alleviated by remaining still, The symptoms are aggravated by movement. Associated signs and symptoms: The patient has no apparent associated signs or symptoms. Severity of symptoms: At their worst the symptoms were mild, moderate, in the emergency department the symptoms are unchanged. The patient has not experienced similar symptoms in the past. Historical: - Allergies: 12:56 meperidine HCl (rash); jh5 12:56 Morphine; jh5 - PMHx: 12:56 ADD/ADHD; Depression; stage 3 kidney failure; renal cell carcinoma; renal cell jh5 carcinoma contained; Hypothyroidism; Hyperlipidemia; Giant Cell Arthritis; Hypertension; DM chemical induced; giant cell arteritis; Myocardial infarction; - Immunization history:: Adult Immunizations up to date. - Social history:: Smoking status: Patient denies any tobacco usage or history of. - Family history:: not pertinent. ROS: 14:07 Constitutional: Negative for fever, chills, and weight loss, Eyes: Negative for injury, cheri pain, redness, and discharge, ENT: Negative for injury, pain, and discharge, Neck: Negative for injury, pain, and swelling, Cardiovascular: Negative for chest pain, palpitations, and edema, Respiratory: Negative for shortness of breath, cough, wheezing, and pleuritic chest pain, Abdomen/GI: Negative for abdominal pain, nausea, vomiting, diarrhea, and constipation, Back: Negative for injury and pain, : Negative for injury, bleeding, discharge, and swelling, Skin: Negative for injury, rash, and discoloration, Neuro: Negative for headache, weakness, numbness, tingling, and seizure, Psych: Negative for depression, anxiety, suicide ideation, homicidal ideation, and hallucinations, Allergy/Immunology: Negative for hives, rash, and allergies, Endocrine: Negative for neck swelling, polydipsia, polyuria, polyphagia, and marked weight changes, Hematologic/Lymphatic: Negative for swollen nodes, abnormal bleeding, and unusual bruising. 14:07 MS/extremity: Positive for injury or acute deformity, contusion, decreased range of motion, pain, swelling, of the right arm. Exam: 14:07 Constitutional: This is a well developed, well nourished patient who is awake, alert, cheri and in no acute distress. Head/Face: Normocephalic, atraumatic. Eyes: Pupils equal round and reactive to light, extra-ocular motions intact. Lids and lashes normal. Conjunctiva and sclera are non-icteric and not injected. Cornea within normal limits. Periorbital areas with no swelling, redness, or edema. ENT: Nares patent. No nasal discharge, no septal abnormalities noted. Tympanic membranes are normal and external auditory canals are clear. Oropharynx with no redness, swelling, or masses, exudates, or evidence of obstruction, uvula midline. Mucous membranes moist. Neck: Trachea midline, no thyromegaly or masses palpated, and no cervical lymphadenopathy. Supple, full range of motion without nuchal rigidity, or vertebral point tenderness. No Meningismus. Chest/axilla: Normal chest wall appearance and motion. Nontender with no deformity. No lesions are appreciated. Cardiovascular: Regular rate and rhythm with a normal S1 and S2. No gallops, murmurs, or rubs. Normal PMI, no JVD. No pulse deficits. Respiratory: Lungs have equal breath sounds bilaterally, clear to auscultation and percussion. No rales, rhonchi or wheezes noted. No increased work of breathing, no retractions or nasal flaring. Abdomen/GI: Soft, non-tender, with normal bowel sounds. No distension or tympany. No guarding or rebound. No evidence of tenderness throughout. Back: No spinal tenderness. No costovertebral tenderness. Full range of motion. Female : Normal external genitalia. Skin: Warm, dry with normal turgor. Normal color with no rashes, no lesions, and no evidence of cellulitis. Neuro: Awake and alert, GCS 15, oriented to person, place, time, and situation. Cranial nerves II-XII grossly intact. Motor strength 5/5 in all extremities. Sensory grossly intact. Cerebellar exam normal. Normal gait. Psych: Awake, alert, with orientation to person, place and time. Behavior, mood, and affect are within normal limits. 14:07 Musculoskeletal/extremity: Extremities: decreased ROM, ecchymosis, pain, swelling, ROM: full active range of motion, full passive range of motion, in the right arm, Circulation is intact in all extremities. Sensation intact. Compartment Syndrome exam of affected extremity: is normal. DVT Exam: negative Homans' sign noted on exam, no appreciated bluish discoloration, no erythema, no increased warmth, pain, swelling. Vital Signs: 12:50 BP 142 / 82; Pulse 78; Resp 18; Temp 98.6; Pulse Ox 98% ; Weight 58.97 kg; Height 5 ft. [facility] 0 in. (152.40 cm); 13:28 BP 177 / 53; Pulse 63; Resp 18; Pulse Ox 99% on R/A; em6 15:00 BP 158 / 64; Pulse 68; Resp 18; Pulse Ox 99% on R/A; em6 12:50 Body Mass Index 25.39 (58.97 kg, 152.40 cm) 5 MDM: 12:57 Patient medically screened. cheri 14:19 Differential diagnosis: Anterior dislocation with fracture, Anterior dislocation cheri without fracture, humeral head fracture, DJD, tendonitis. Data reviewed: vital signs, nurses notes, lab test result(s), CBC, electrolytes, hepatic panel, radiologic studies. 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 Test interpretation: by ED physician or midlevel provider: plain radiologic studies. Counseling: I had a detailed discussion with the patient and/or guardian regarding: the historical points, exam findings, and any diagnostic results supporting the discharge/admit diagnosis, lab results, radiology results, the need for outpatient follow up, for definitive care, a family practitioner, a orthopedic surgeon. 07/31 14:06 Order name: CBC with Diff; Complete Time: 15:33 cheri 07/31 14:06 Order name: Comprehensive Metabolic Panel [facility] 07/31 14:06 Order name: PT-INR; Complete Time: 15:29 [facility] 07/31 14:06 Order name: Humerus Right XRAY [facility] 07/31 14:06 Order name: Forearm Right XRAY [facility] 07/31 14:13 Order name: UPPER EXTREMITY VENOUS UNILATE; Complete Time: 15:29 EDMS 07/31 15:09 Order name: Sling; Complete Time: 15:18 cheri Administered Medications: 15:10 Drug: NS 0.9% 1000 ml Route: IV; Rate: 125 ml/hr; Site: left antecubital; em6 15:35 Follow up: Response: No adverse reaction; IV Status: Order to discontinue infusion em6 Disposition Summary: 07/31/22 15:32 Discharge Ordered Location: Home [facility] Problem: new cheri Symptoms: have improved cheri Condition: Stable cheri Diagnosis - Unspecified symptoms and signs involving the musculoskeletal system - contusion, cheri muscle tear, tendon , ligament Followup: cheri - With: Toby Parks MD - When: 2 - 3 days - Reason: Recheck today's complaints, Continuance of care, Re-evaluation by your physician Followup: cheri - With: Khoi Martinez MD - When: 2 - 3 days - Reason: Recheck today's complaints, Re-evaluation by your physician Discharge Instructions: - Discharge Summary Sheet cheri - Contusion cheri - Contusion, [id number] cheri Forms: - Medication Reconciliation Form cheri - Thank You Letter cheri - Antibiotic Education cheri - Prescription Opioid Use cheri Prescriptions: - Tylenol 325 mg Oral Tablet - take 2 tablets by ORAL route every 6 hours as needed; 1 bottle; Refills: 0, cheri Product Selection Permitted Signatures: Dispatcher [employer] EDNew Zaldivar MD MD cha Rees, Jessica RN RN jh5 Anastasia Sanchez RN RN em6 Corrections: (The following items were deleted from the chart) 14: 14:06 Extremity Venous [email or web address] ordered. EDMS EDMS
--- NOTE | 2022-07-31 15:32 | ER ---
Nurse's Notes [facility] Name: Radha Ocampo Age: 81 yrs Sex: Female : 1940 Arrival Date: 07/31/2022 Time: 12:47 Bed 25 Private MD: Toby Parks V Diagnosis: Unspecified symptoms and signs involving the musculoskeletal system-contusion, muscle tear, tendon , ligament Presentation: 07/31 12:50 Chief complaint: Patient states: couple months ago I fell and went to [place], they jh5 xrayed it and said nothing was broken; so went home and let it heal. this swelling and bruising didn't show up till Friday... Dilaul daughter is PCP and gave her an order for physical therapy and says she is not indicated for surgery... over this past weekend I was scooping hard ice cream and heard a pop in my right shoulder and its been terrible pain, then swelling started friday. Coronavirus screen: Vaccine status: Patient reports receiving the 2nd dose of the covid vaccine. Client denies travel out of the [place] in the last 14 days. Ebola Screen: Patient negative for fever greater than or equal to 101.5 degrees Fahrenheit, and additional compatible Ebola Virus Disease symptoms Patient denies exposure to infectious person. Patient denies travel to an Ebola-affected area in the 21 days before illness onset. Initial Sepsis Screen: Does the patient meet any 2 criteria? No. Patient's initial sepsis screen is negative. Does the patient have a suspected source of infection? No. Patient's initial sepsis screen is negative. Risk Assessment: Do you want to hurt yourself or someone else? Patient reports no desire to harm self or others. 12:50 Method Of Arrival: Ambulatory [facility] 12:50 Acuity: CIARA 3 5 14:03 Onset of symptoms was July 17, 2022. em6 Triage Assessment: 12:56 General: Appears uncomfortable, slender, well groomed, well developed, Behavior is 5 calm, cooperative, appropriate for age. Pain: Complains of pain in right arm. Musculoskeletal: Reports pain in right arm. 13:29 Injury Description: Bruise sustained to right arm. em6 Historical: - Allergies: 12:56 meperidine HCl (rash); jh5 12:56 Morphine; 5 - PMHx: 12:56 ADD/ADHD; Depression; stage 3 kidney failure; renal cell carcinoma; renal cell jh5 carcinoma contained; Hypothyroidism; Hyperlipidemia; Giant Cell Arthritis; Hypertension; DM chemical induced; giant cell arteritis; Myocardial infarction; - Immunization history:: Adult Immunizations up to date. - Social history:: Smoking status: Patient denies any tobacco usage or history of. - Family history:: not pertinent. Screenin:29 [facility] ED Fall Risk Assessment (Adult) History of falling in the last 3 months, em6 including since admission Yes- single mechanical fall (1 pt). Abuse screen: Denies threats or abuse. Nutritional screening: No deficits noted. Tuberculosis screening: No symptoms or risk factors identified. Fall Risk Fall in past 12 months (25 points). No secondary diagnosis (0 pts). No IV (0 pts). Ambulatory Aid- None/Bed Rest/Nurse Assist (0 pts). Gait- Normal/Bed Rest/Wheelchair (0 pts) Mental Status- Oriented to own ability (0 pts). Total [place] Fall Scale indicates Low Risk Score (25-44 pts). Fall prevention measures have been instituted. Side Rails Up X 2 Placed close to Nursing Station Frequent Obs/Assesments occuring As available Patient and Family Educated on Fall Prevention Program and strategies. Assessment: 13:29 General: Appears in no apparent distress. Behavior is cooperative. Pain: Complains of em6 pain in right arm Pain does not radiate. Pain currently is 9 out of 10 on a pain scale. Quality of pain is described as pressure, sharp, Pain began 07/17/22. Neuro: Level of Consciousness is awake, alert, obeys commands, Oriented to person, place, time, situation. Cardiovascular: Capillary refill < 3 seconds Patient's skin is warm and dry. Respiratory: Airway is patent Respiratory effort is even, unlabored, Respiratory pattern is regular, symmetrical. GI: No signs and/or symptoms were reported involving the gastrointestinal system. : No signs and/or symptoms were reported regarding the genitourinary system. EENT: No signs and/or symptoms were reported regarding the EENT system. Derm: Skin right lower arm is swollen. healed bruising noted in the upper shoulder. redness and purple noted in the below the elbow all the way to hand. patient states sensation and patient is able to move all fingers. patient is able to move hand, but states pain with movement. Musculoskeletal: Circulation, motion, and sensation intact. Capillary refill < 3 seconds, in bilateral fingers. Range of motion: intact in left shoulder limited in right arm. 15:00 Reassessment: Patient appears in no apparent distress at this time. No changes from em6 previously documented assessment. Patient and/or family updated on plan of care and expected duration. Pain level reassessed. Patient is alert, oriented x 3, equal unlabored respirations, skin warm/dry/pink. Vital Signs: 12:50 BP 142 / 82; Pulse 78; Resp 18; Temp 98.6; Pulse Ox 98% ; Weight 58.97 kg; Height 5 ft. 5 0 in. (152.40 cm); 13:28 BP 177 / 53; Pulse 63; Resp 18; Pulse Ox 99% on R/A; em6 15:00 BP 158 / 64; Pulse 68; Resp 18; Pulse Ox 99% on R/A; em6 12:50 Body Mass Index 25.39 (58.97 kg, 152.40 cm) [facility] ED Course: 12:47 Patient arrived in ED. as 12:47 Toby Parks MD is Private Physician. as 12:56 Triage completed. [facility] 12:56 Arm band placed on left wrist. [facility] 12:57 [place] MD is Attending Physician. cheri 13:29 Anastasia Sanchez, CONCETTA is Primary Nurse. em6 13:29 Placed in gown. Bed in low position. Call light in reach. Side rails up X 1. Pulse ox em6 on. NIBP on. Warm blanket given. Pillow given. 14:52 UPPER EXTREMITY VENOUS UNILATE In Process Unspecified. EDMS 15:09 Humerus Right XRAY In Process Unspecified. EDMS 15:09 Forearm Right XRAY In Process Unspecified. EDMS 15:10 Inserted saline lock: 22 gauge in left antecubital area, using aseptic technique. Blood em6 collected. 15:30 Toby Parks MD is Referral Physician. cheri 15:30 Khoi Martinez MD is Referral Physician. cheri 15:33 No provider procedures requiring assistance completed. em6 15:34 Sling applied to right arm. em6 15:45 IV discontinued, intact, bleeding controlled, No redness/swelling at site. Pressure em6 dressing applied. Administered Medications: 15:10 Drug: NS 0.9% 1000 ml Route: IV; Rate: 125 ml/hr; Site: left antecubital; em6 15:35 Follow up: Response: No adverse reaction; IV Status: Order to discontinue infusion em6 Medication: 15:34 VIS not applicable for this client. em6 Outcome: 15:32 Discharge ordered by MD. alonzo 15:45 Discharged to home ambulatory. em6 15:45 Condition: stable 15:45 Discharge instructions given to patient, Instructed on discharge instructions, follow up and referral plans. medication usage, splint care Demonstrated understanding of instructions, follow-up care, medications, splint care, Prescriptions given X 1. 15:46 Patient left the ED. em6 Signatures: Dispatcher [employer] EDMS [place] MD MD cha Martinez, Amelia as Rees, Jessica RN RN 5 Anastasia Sanchez RN RN em6 Corrections: (The following items were deleted from the chart) 16:47 13:29 Humpty Dumpty Scale Fall Assessment Tool (age< 18yrs) Fall Risk Score/ Level Low em6 Fall Risk: </= 11 points Maintained a safe environment: Age specific bed with railing, Bed in low position\T\ wheels locked, Assess need for siderail use, Locks on, Rm \T\ paths clutter \T\ obstacle free, Proper lighting, Call light, personal item w/in reach, Alarms as needed, Educated pt \T\ family on fall prevention, incl. call for assistance when getting out of bed, em6
[2022-07-31 15:42] LABS: Albumin 3.4 g/dL (3.4-5.0); Bilirubin Total 0.7 mg/dL (0.2-1.0); Potassium 3.3 mmol/L (3.5-5.1); Protein, Total 6.5 g/dL (6.4-8.2)
[2022-07-31 15:55] VITALS: TEMP 98.6
[2022-07-31 16:01] VITALS: O2SAT 99
--- NOTE | 2022-07-31 16:01 | RAD REPORT ---
EXAM DESCRIPTION: RAD - Humerus Right - 07/31/2022 3:08 pm CLINICAL HISTORY: Right arm pain status post fall FINDINGS: Oblique lucency is present within the proximal to mid right humerus only seen on one view . This probably represents artifact rather than a fracture. If the patient has pain in this region to suggest a fracture then repeat x-rays of this portion of the right humerus would be recommended. Osteoporosis
--- NOTE | 2022-07-31 16:02 | RAD REPORT ---
EXAM DESCRIPTION: RAD - Forearm Right - 07/31/2022 3:08 pm CLINICAL HISTORY: Right arm pain status post fall FINDINGS: No fracture is seen.
[2022-07-31 16:11] VITALS: BP 158/64
== END 2022-07-31 15:46 | disposition home or self-care (01) ==
LOC: ER 12:41
DX: R29.898 Other symptoms and signs involving the musculoskeletal system (principal); I12.9 Hypertensive chronic kidney disease with stage 1 through stage 4 chronic kidney disease, or unspecified chronic kidney disease; N18.30 Chronic kidney disease, stage 3 unspecified; Z88.5 Allergy status to narcotic agent; Z88.8 Allergy status to other drugs, medicaments and biological substances
CPT/HCPCS: 85025; 36415; 85610; 80053; 73090; 73060; 93971; J7030

== ENCOUNTER 2022-12-18 15:26 | Emergency (ER) | payer OTHER ==
--- OUTSIDE RECORDS SUMMARY | 2022-12-18 15:37 | XMS REPORT | Continuity of Care Document ---
:1940 Author Organization [facility] t Address [address] [place] [address] Care Team Providers Name Role Phone JAIME AGUIRRE Attending Clinician Unavailable CHECO HERCULES Attending Clinician Unavailable KATHRIN PRESCOTT Attending Clinician Unavailable Slade Ryan Attending Clinician JAIME AGUIRRE Admitting Clinician Unavailable CHECO HERCULES Admitting Clinician Unavailable KATHRIN PRESCOTT Admitting Clinician Unavailable AYANNA CRAWFORD Admitting Clinician Unavailable ANGLE MCKEON Admitting Clinician Unavailable Payers Payer Name Policy Type Policy Number Effective Date Expiration Date S antaly[place] UNITED MEDICARE [id number] 2019 O 00:00:00 CDC REVIEW [id number] 2020 00:00:00 Problems Condition Condition Condition Status Onset Resolution Last Treating Co mments Source Name Details Category Date Date Treatment Clinician Date Bright red Bright red Disease Active 2019- [facility] blood per blood per 05-14 [facility] rectum rectum 00:00: Medical 00 [place] Colitis Colitis Disease Active 2019-[address] [facility] 00 [place] Meningioma Meningioma Disease Recurre [facility]24 [facility] Medical 00 [place] Dehydratio Dehydratio Disease Active 2019-[address] n n 04-24 [facility] 00:[facility]: Medical [place] Elevated Elevated Disease Active 2019- [facility] Center Steroid-in Steroid-in Disease Active 2020-[address] duced duced 9-07 [facility] hyperglyce hyperglyce 00:00: Me derick taylor 00 Center 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 9-04 [facility] of right of right 00:00: Medica l kidney kidney 00 Center Renal cell Renal cell Disease Recurre 2020-[address] [facility] carcinoma carcinoma nce 9-04 [facility] of right of right 00:00: Medica l kidney kidney 00 Center Fatigue Fatigue Disease Active 2020-[address] [facility]04 [facility] 00 Center Diabetes Diabetes Disease Recurre 2020-[address] [facility] mellitus mellitus nce 8-15 [facility] 00 Center 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[address] [facility] arteritis arteritis nce 8-15 [facility] 00:[facility]: Medical 00 Center Hypothyroi Hypothyroi Disease Active 2020-[address] dism dism 8-15 [facility] 00 Center Hypertensi Hypertensi Disease Active 2020-[address] on on 8-15 [facility] 00:[facility] 00 Center Diverticul Diverticul Disease Active 2020-0 C HI [...] Neuro 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 13:10:14 l (disorder) arteritis Her amaya (disorder) Active Problem 03/18/2019 [facility] Headache Headache Problem Active 2019-03-18 Memoria (finding) (finding) 13:10:14 l Active [place] Problem 03/18/2019 [facility] 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 13:10:14 l (finding) (finding) Mukul recinos Active Problem 03/18/2019 [facility] Neuropathy Problem Active 2019-03-18 M emoria (disorder) Neuropathy 13:10:14 l (disorder) [place] saul Active Problem 03/18/2019 [facility] Allergies, Adverse Reactions, Alerts Allergy Allergy Status Severity Reaction(s) Onset Inactive Treating Comm ents Source Name Type Date Date Clinician MEPERIDI Allergy Active Other [facility] Center MORPHINE Allergy Active Low Rash [facility] Center Meperidi Propensi Active Other (See hallucina [facility] ty to Comments) 814 tion [facility] adverse 00:00: Medical reaction 00 Center s Morphine Propensi Active Rash [facility] ty to 8-14 [facility] adverse 00:00: Medical reaction 00 Center s morphine morphine Active Memori a l Juanjo Demerol Demerol Active Memoria l [place] NO KNOWN Allergy Active [facility] ALLERGIE S Family History Family Member Diagnosis Comments Start Date Stop Date Source Natural brother Cancer [facility] Natural father Cancer [facility] Natural mother Diabetes [facility] Natural mother Heart disease [facility] Natural sister Breast cancer [facility] Natural sister Cancer [facility] Social History Social Habit Start Date Stop [...] [facility] Alcohol [facility]:00 [facility] Center Tobacco use and 2020-04-02 2020-04-[address] [facility] kes exposure 00:00:00 00:00:00 Medical Center Social History 2018-06-12 2018-06-12 [facility] annelise 14:22:19 14:22:19 Sex Assigned At [address] [facility] leys 00:00:00 00:00:00 Medical Center Smoking Status Start Date Stop Date Source Never sm[facility] Center Medications Ordered Filled Start Stop Current Ordering Indication Dosage Frequency Signature Comments Components Source Medication Medication Date Date Medication? Clinician (SIG) Name Name aspirin 81 2020-0 Yes 1{tbl} QD Take [address] MG EC 9-28 tablet by [facility] tablet 21:06: mouth Medical 43 daily. Center nitroglycer 2020-0 Yes 1{tbl} Place [address] in 9-28 tablet [facility] (NITROSTAT) 21:06: under the M edical 0.4 MG SL 43 tongue as Cente r tablet needed. predniSONE 2020-0 Yes 1{tbl} Q.5D Take [address] (DELTASONE) 9-28 tablet by Vikram es 20 MG 21:06: mouth 2 Medical tablet 43 (two) Center times daily. cycloSPORIN 2020-0 Yes 1[drp] Place [address] E 9-28 drop into [facility] (RESTASIS) 21:06: both eyes Me dical 0.05 % 43 as needed. [place] ophthalmic emulsion alpha 2020-0 Yes 1{tbl} QD Take [address] lipoic acid 9-28 tablet by Vikram es 600 mg Cap 21:06: mouth Medica l 43 daily. [place] calcium 2020-0 Yes 1{tbl} QD Take [address] carbonate-v 9-28 tablet by Vikram es itamin D3 21:06: mouth Medical (CALCIUM- 43 daily. Center TAMIN D) 500 mg(1,250mg) -200 unit per tablet aspirin 81 2020-0 Yes 1{tbl} QD Take [address] MG EC 9-28 tablet by [facility] tablet 21:06: mouth Medical 43 daily. [place] nitroglycer 2020-0 Yes 1{tbl} Place [address] in 9-28 tablet [facility] (NITROSTAT) 21:06: under the M edical 0.4 MG SL 43 tongue as Cente r tablet needed. predniSONE 2020-0 Yes 1{tbl} Q.5D Take [address] (DELTASONE) 9-28 tablet by Vikram es 20 MG 21:06: mouth 2 Medical tablet 43 (two) Center times daily. cycloSPORIN 2020-0 Yes 1[drp] Place [address] E 9-28 drop into [facility] (RESTASIS) 21:06: both eyes Me dical 0.05 % 43 as needed. [place] ophthalmic emulsion alpha 2020-0 Yes 1{tbl} QD Take [address] lipoic acid 9-28 tablet by Vikram es 600 mg Cap 21:06: mouth Medica l 43 daily. [place] calcium 2020-0 Yes 1{tbl} QD Take 1 [...] 1 box by [facility] t insulin 9-07 [facility] disposable 00:00: ous route Me dical (INSULIN 00 4 (four) Center PEN times NEEDLES) daily Ndle before meals and nightly. insulin 2020-0 Yes 6U QD Inject [address] glargine 9-07 Units [facility] (LANTUS) 00:00: subcutaneo Med ical 100 unit/mL 00 usly Center injection nightly Use as directed2- 5 units depending on blood sugar . needles, 2020-0 Yes 1 box by [facility] t insulin 9-07 [facility] disposable 00:00: ous route Me dical (INSULIN 00 4 (four) Center PEN times NEEDLES) daily Ndle before meals and nightly. levothyroxi 2020-0 Yes 1{tbl} QD Take [address] ne 3-20 tablet by [facility] (SYNTHROID, 00:00: mouth Medic al LEVOTHROID) 00 daily. [place] 75 MCG tablet losartan 2020-0 Yes 1{tbl} QD Take 1 [facility] t (COZAAR) 3-20 tablet by [facility] 100 MG 00:00: mouth Medical tablet 00 daily. [place] levothyroxi 2020-0 Yes 1{tbl} QD Take [address] ne 3-20 tablet by [facility] (SYNTHROID, 00:00: mouth Medic al LEVOTHROID) 00 daily. [place] 75 MCG tablet losartan Yes 1{tbl} QD Take 1 [facility] t (COZAAR) 3-20 tablet by [facility] 100 MG 00:00: mouth Medical tablet 00 daily. [place] diltiazem Yes 1{tbl} QD Take [address] (DILT-XR) 2-11 tablet by [facility] 180 mg 24 00:00: mouth Medical hr capsule 00 nightly. [place] noriega diltiazem Yes 1{tbl} QD Take [address] (DILT-XR) 2-11 tablet by [facility] 180 mg 24 00:00: mouth Medical hr capsule 00 nightly. [place] noriega nortriptyli Yes See Memori a ne 10 mg 5-28 Instructio l oral 15:18: ns, 3 po [place] capsule 00 qhs, 0 Refill(s) nortriptyli Yes See Memori a ne 10 mg 5-28 Instructio l oral 15:18: ns, 3 po Juanjo capsule 00 qhs, 0 Refill(s) Nortriptyli Yes PO, Memori a ne 5-28 Bedtime, 0 l 15:03: Refill(s) Juanjo Nortriptyli Yes PO, Memori a ne 5-28 Bedtime, 0 l 15:03: Refill(s) Juanjo 00 24 HR Yes 250 mg = 1 Memori a Divalproex 5-01 tab, PO, l Sodium 250 15:11: Bedtime, # H ermann MG Extended 30 tab, 3 Release Refill(s), Tablet Pharmacy: [Depakote] Pharm [facility] 24 Yes 250 mg = 1 Memori a Divalproex 5-01 tab, PO, l Sodium 250 15:11: Bedtime, # H ermann MG Extended 00 30 tab, 3 Release Refill(s), Tablet Pharmacy: [Depakote] [facility] butidbital Yes = 1 tab, Mem oria 5-01 PO, 0 l 14:28: Refill(s) [place] butalbital Yes = 1 tab, Mem oria 5-01 PO, 0 l 14:28: Refill(s) Juanjo 00 Memantine Yes 10 mg = 2 Mem oria hydrochlori 1-11 tab, PO, l de 5 MG 17:46: BID, # 120 Herm jorje Oral Tablet 00 tab, 3 [Namenda] Refill(s), Pharmacy: [facility] Memantine Yes 10 mg = 2 Mem oria hydrochlori 1-11 tab, PO, l de 5 MG 17:46: BID, # 120 Herm jorje Oral Tablet 00 tab, 3 [Namenda] Refill(s), Pharmacy: [facility] 0.9 ML Yes 162 mg, Memoria tocilizumab 08-28 SUB-Q, 0 l 180 MG/ML 17:37: Refill(s) Her amaya Prefilled 00 Syringe [Actemra] 0.9 ML Yes 162 mg, Memoria tocilizumab 08-28 SUB-Q, 0 l 180 MG/ML 17:37: Refill(s) Her amaya Prefilled 00 Syringe [Actemra] topiramate 2017-08 No 25 mg = 1 Me moria 25 MG Oral 1-30 tab, PO, l Tablet 16:56: BID, # 60 [place] n [Topamax] 52 tab, 3 Refill(s), Pharmacy: [facility] topiramate 2017-08 No 25 mg = 1 Me moria 25 MG Oral 1-30 tab, PO, l Tablet 16:56: BID, # 60 [place] n [Topamax] 52 tab, 3 Refill(s), Pharmacy: [facility] Insulin 2017-08 Yes See Memoria Glargine 1-30 Instructio l 100 UNT/ML 16:33: ns, SUB-Q He rmann Injectable 00 PRN, 0 Solution Refill(s) [Lantus] Tramadol 2017-08 Yes 50 mg, PO, Mem oria 1-30 PRN, PRN l 16:33: Pain [place] 00 Insulin 2017-08 Yes See Memoria Glargine 1-30 [...] 00 30 tab, 3 Refill(s), Pharmacy: [facility] topiramate 2017-08 No 25 mg = 1 Me moria 25 MG Oral 0-26 tab, PO, l Tablet 15:13: Bedtime, # Abigail nn [Topamax] 00 30 tab, 3 Refill(s), Pharmacy: [facility] [place] Lyrica 2017-08 Yes 25 mg, PO, Memor ia [...] tab, PO, l Tablet 13:58: Daily, 0 Juanjo 00 Refill(s) Amoxicillin 2017-08 No 2, PO, Cresencio joy 0-26 Daily, 0 l 13:58: Refill(s) Diltiazem 2017-08 Yes 120 mg, Memor ia 0-26 PO, Daily, l 13:58: 0 Refill(s) Furosemide 2017-08 Yes 20 mg, PO, M emoria 0-26 PRN, 0 l 13:58: Refill(s) Lyrica 2017-08 Yes 25 mg, PO, Memor ia [...] tab, PO, l Tablet 13:58: Daily, 0 [place] 00 Refill(s) Amoxicillin 2017-08 No 2, PO, Cresencio joy 0-26 Daily, 0 l 13:58: Refill(s) Diltiazem 2017-08 Yes 120 mg, Memor ia 0-26 PO, Daily, l 13:58: 0 Refill(s) Furosemide 2017-08 Yes 20 mg, PO, M emoria 0-26 PRN, 0 l 13:58: Refill(s) sertraline Yes 1{tbl} QD Take [address] [facility] (ZOLOFT) 4-18 tablet by [facility] 100 MG 00:00: mouth Medical tablet 00 daily Noon Center time. sertraline Yes 1{tbl} QD Take 1 [facility] [...] 66.996 kg Height 2019-01-12 14:51:00 149.86 cm [facility] BMI Calculated 2019-01-12 14:51:00 Kar Figueroa Weight 2019-01-12 14:51:00 [facility] [place] Heart Rate 2019-01-12 14:51:00 [facility] [place] Respitory Rate 2019-01-12 14:51:00 Memori al [place] Systolic (mm Hg) 2019-01-12 14:51:00 Cresencio rial Juanjo Diastolic (mm Hg) 2019-01-12 14:51:00 Mem orial Juanjo BMI Calculated 2018-12-16 14:12:00 Memori al [place] Weight 2018-12-16 14:12:00 [facility] [place] Height 2018-12-16 14:12:00 152.4 cm [facility] [place] Respitory Rate 2018-12-16 14:12:00 Memori al Juanjo Heart Rate 2018-12-16 14:12:00 [facility] [place] Systolic (mm Hg) 2018-12-16 14:12:00 Cresencio rial [place] Diastolic (mm Hg) 2018-12-16 14:12:00 Mem orial Juanjo BMI Calculated 2018-08-28 17:21:00 Memori al [place] Weight 2018-08-28 17:21:00 [facility] [place] Height 2018-08-28 17:21:00 152.4 cm [facility] [place] Respitory Rate 2018-08-28 17:21:00 Memori al [place] Systolic (mm Hg) 2018-08-28 17:21:00 Cresencio rial Juanjo Diastolic (mm Hg) 2018-08-28 17:21:00 Mem orial Juanjo Heart Rate 2018-08-28 17:21:00 [facility] [place] BMI Calculated 2018-07-17 16:27:00 Memori al Juanjo Weight 2018-07-17 16:27:00 [facility] [place] Height 2018-07-17 16:27:00 149.86 cm [facility] [place] Systolic (mm Hg) 2018-07-17 16:27:00 Cresencio rial [place] Diastolic (mm Hg) 2018-07-17 16:27:00 Mem orial [place] Heart Rate 2018-07-17 16:27:00 [facility] [place] BMI Calculated 2018-06-12 13:52:00 Memori al [place] Weight 2018-06-12 13:52:00 [facility] [place] Height 2018-06-12 13:52:00 152.4 cm [facility] [place] Heart Rate 2018-06-12 13:52:00 [facility] [place] Systolic (mm Hg) 2018-06-12 13:52:00 Cresencio rial Juanjo Diastolic (mm Hg) 2018-06-12 13:52:00 Mem orial Juanjo Procedures Procedure Date / Time Performed Performing Clinician [facility] e [facility] Temporal artery biopsy [facility] Plan of Care Planned Activity Planned Date Details Comments Source Future Scheduled 2023-04-[address] [facility] Test 00:00:00 (Season Ended) [code = [facility] INFLUENZA VACCINE (Season Ended)] Future Scheduled 2022-08-[address] [facility] Test 00:00:00 (12+) [code = Medical Center DEPRESSION SCREENING (12+)] Future Scheduled 2022-08-18 FALLS RISK SCREENING [facility] Test 00:00:00 [code = FALLS RISK Medical C enter SCREENING] Future Scheduled 2022-04-18 INFLUENZA VACCINE (#1) C [...] Cessation Counseling and Screening (12+)] Future Scheduled 2021-04-[address] [facility] Test 00:00:00 Counseling and Medical Cente r Screening (12+) [code = Tobacco Cessation Counseling and Screening (12+)] Future Scheduled 2021-01-20 Urine screening for [facility] Test 00:00:00 protein (procedure) Medical Center [code = 699106660] Future Scheduled 2021-01-20 Urine screening for [facility] Test 00:00:00 protein (procedure) [facility] [code = 144549320] Future Scheduled 2020-11-[address] [facility] Test 00:00:00 measurement [facility] (procedure) [code = 94313396] Future Scheduled 2020-11-[address] [facility] Test 00:00:00 measurement [facility] (procedure) [code = 82504226] Future Scheduled 2020-07-[address] [facility] Test 00:00:00 WELLNESS (YEAR 2 or Medical Center FIRST YEAR if no IPPE) [code = MEDICARE ANNUAL WELLNESS (YEAR 2 or FIRST YEAR if no IPPE)] Future Scheduled 2020-07-[address] [...] DTAP/TDAP/TD VACCINES (1 - Tdap)] Future Scheduled 1960 DTAP/TDAP/TD [facility]ACCINES [facility] 00:00:00 (1 - Tdap) [code = Medical C enter DTAP/TDAP/TD VACCINES (1 - Tdap)] Future Scheduled 1960 SHINGLES VACCINES ([address] [facility] Test 00:00:00 of 2) [code = SHINGLES Medic al Center VACCINES (1 of 2)] Future Scheduled [address]AB[address]IC EYE EXAM [facility] Test 00:00:00 [code = DIABETIC EYE Medical Center EXAM] Future Scheduled [address] [facility] Test 00:00:00 examination Medical Center (regime/therapy) [code = 998158065] Future Scheduled [address]ABETIC EYE EXAM [facility] 00:00:00 [code = DIABETIC EYE Medical Center EXAM] Future Scheduled [address] [facility] Test 00:00:00 examination Medical Center (regime/therapy) [code = 529023300] Future Scheduled 1947 PNEUMOCOCCAL 65+ YRS [facility] Test 00:00:00 (1 - PCV) [code = Medical Ce nter PNEUMOCOCCAL 65+ YRS (1 - PCV)] Future Scheduled 1947 PNEUMOCOCCAL 65+ YRS [facility] Test 00:00:00 (1 - PCV) [code = Medical Ce nter PNEUMOCOCCAL 65+ YRS (1 - PCV)] Future Scheduled 1942-03-07 COVID-19 VACCINE (#1) [facility] 00:00:00 [code = COVID-[address] VACCINE (#1)] Future Scheduled 1942-03-07 COVID-19 VACCINE (#1) [facility] 00:00:00 [code = COVID-[address] VACCINE (#1)] Future Scheduled 1940 DXA SCAN [code = DXA [facility] Test 00:00:00 SCAN] Medical Center Future Scheduled 1940 DXA SCAN [code = DXA [facility] Test 00:00:00 SCAN] Medical Center Encounters Start End Encounter Admission Attending Care Care Encounter Source Date/Time Date/Time Type Type Clinicians Facility Department ID 2021-05-23 Inpatient ER [facility] Gastro [id number] [facility] 08:28:59 [facility] 2021-05-23 Inpatient ER [facility] [id number] [facility] 07:11:14 , CHECO Med 2020-04-[address] [facility] Surgery [id number] [facility] 17:35:00 KATHRIN 2020-03-31 Inpatient ER [facility] Inter Rad [id number] [facility] 07:46:00 [facility] 2019-01-12 2019-01-13 Outpatient nullFlavo MNA [id number] Memoria 14:30:00 04:59:59 r Neurology Daily Nguyen [place] 2019-01-12 2019-01-13 Outpatient nullFlavo MNA [id number] Memoria 14:30:00 04:59:59 r Neurology 05 ashley Geiger 2019-01-12 2019-01-12 Outpatient KRISTOPHER RyanSCHER MHMISCHER [id number] 09:30:00 23:59:59 Slade Bell 2019-01-12 2019-01-12 Outpatient MHIE OUSMANE [id number] Memoria 09:30:00 09:30:00 Daily Geiger 2018-12-22 2018-12-24 Phone nullFlavo MNA [id number] Memoria 20:13:43 04:59:59 Message r Neurology 01 ashley Geiger 2018-12-22 2018-12-24 Phone nullFlavo MNA [id number] Memoria 20:13:43 04:59:59 Message r Neurology 01 l Wendy Gilmanann 2018-12-22 2018-12-23 Outpatient MHMISCHER MHMISCHER [id number] 15:13:43 23:59:59 2018-12-16 2018-12-17 Outpatient nullFlavo MNA [id number] Memoria 14:00:00 04:59:59 r Neurology 04 l Liberalandriy Gilmanann 2018-12-16 2018-12-17 Outpatient nullFlavo MNA [id number] Memoria 14:00:00 04:59:59 r Neurology 04 l Liberal Juanjo 2018-12-16 2018-12-16 Outpatient Shelby MHMISCHER MHMISCHER [id number] 09:00:00 23:59:59 Slade 04 Ray 2018-12-16 2018-12-16 Outpatient MHIE MHIE [id number] Memoria 09:00:00 09:00:00 04 ashley Juanjo 2018-10-30 2018-10-30 Outpatient MHIE MHIE [id number] Memoria 10:00:00 10:00:00 03 ashley [place] 2018-10-30 2018-10-30 Outpatient MHIE MHIE [id number] Memoria 10:00:00 10:00:00 03 ashley Juanjo 2018-08-28 2018-08-29 Outpatient nullFlavo MNA [id number] Memoria 16:45:00 05:59:59 r Neurology 02 ashley RiosLiberal Juanjo 2018-08-28 2018-08-29 Outpatient nullFlavo MNA [id number] Memoria 16:45:00 05:59:59 r Neurology 02 ashley RiosLiberal Juanjo 2018-08-28 2018-08-28 Outpatient JOAN RyanDESCHER MHMISCHER [id number] 10:45:00 23:59:59 Slade 02 Ray 2018-08-28 2018-08-28 Outpatient MHIE MHIE [id number] Memoria 10:45:00 10:45:00 02 ashley Geiger 2018-08-05 2018-08-07 Outside nullFlavo MNA [id number] Memoria 21:20:00 05:59:59 Medical r Neurology 00 l [facility] Wendy Geiger 2018-08-05 2018-08-07 Outside nullFlavo MNA [id number] Memoria 21:20:00 05:59:59 Medical r Neurology 00 l Records Wendy Geiger 2018-08-05 2018-08-06 Outpatient MHMISCHER MHMISCHER [id number] 15:20:00 23:59:59 00 2018-07-17 2018-07-18 Outpatient nullFlavo MNA [id number] Memoria 16:15:00 05:59:59 r Neurology 01 l Wendy Geiger 2018-07-17 2018-07-18 Outpatient nullFlavo MNA [id number] Memoria 16:15:00 05:59:59 r Neurology 01 l Wendy Geiger 2018-07-17 2018-07-17 [facility] [id number] 10:15:00 23:59:59 Slade Ray 2018-07-17 2018-07-17 Outpatient JOANIE OUSMANE [id number] Memoria 10:15:00 10:15:00 01 ashley Geiger 2018-06-12 2018-06-13 Outpatient nullFlavo MNA [id number] Memoria 14:00:00 04:59:59 r Neurology 00 l Wendy Geiger 2018-06-12 2018-06-13 Outpatient nullFlavo MNA [id number] Memoria 14:00:00 04:59:59 r Neurology 00 l Wendy Geiger 2018-06-12 2018-06-12 [facility] [id number] 09:00:00 23:59:59 Slade 00 Ray 2018-06-12 2018-06-12 Outpatient MHIE IE [id number] Memoria 09:00:00 09:00:00 00 ashley Geiger Results Test Description Test Time Test Comments Results Result Comments Source POCT-GLUCOSE METER 2020-05-15 12:07:00 Test Item Value Reference Range Interpretation Comme nts POC-GLUCOSE METER (BEAKER) 145 mg/dL 70-110 H : TESTED AT [facility] [address] (test code = 1538) [place], [address]: Staff Appraiser/Techni sebastian ID = [id number] for JAYSON OVIEDO E SARS-COV2/RT-PCR ([facility] & REF LABS)2020-05-15 10:07:00 Test Item Value Reference Range Interpretation Comments SARS-COV2/RT-PCR (test Negative Not Detected, Negative, code = 1457303) See external report for linked test SARS-COV-2 PERFORMING LAB [facility] ROLY (test code = 9399493) Negative result for this test determines that [...] of the Act.Fact Sheet for Healthcare Prov iders:https://www.[employer].Nazar/sites/default/files/product/documents/Fact_Sheet_HC _Rkqoivdia_Mujm_IERN-HvI-2.pdfFact Sheet for Healthcare Patients:https://www.[employer].com/sites/default/files/product/docume nts/Bfcn_Myeye_Jxsuzemq_Rlfx_NSKW-DwS-4.pdfPerforming Laboratory:[facility], [place] [id number] METER 2020-05-15 07:57:00 Test Item Value Reference Range Interpretation Comments POC-GLUCOSE METER 145 mg/dL 70-110 H : TESTED Adonay Martinez [facility] 6720 (BEAKER) (test code = JEANE Noriega [facility], 1538) [address]: Staff Appraiser/Techni sebastian ID = [id number] for RUDDY STUBBS BASIC METABOLIC [id number] 06:06:00 Test Item Value Reference Range Interpretation [...] S NOT APPLICABLE FOR DIALYSIS PATIEN TS. Staff Appraiser ID - PIAYA LSpecimen slightly ictericCBC (HEMOGRAM [...] WBC 0-0 (test code = 413) POCT-GLUCOSE [id number] 21:59:00 Test Item Value Reference Range Interpretation Comments POC-GLUCOSE METER 129 mg/dL 70-110 H : TESTED A T [facility] 6720 (BEAKER) (test code = [facility], 1538) [address]: Staff Appraiser/Techni sebastian ID = [id number] for THAD ENRIQUEZE POCT-GLUCOSE [id number] 21:20:00 Test Item Value Reference Range Interpretation Comments POC-GLUCOSE METER 68 mg/dL 70-110 L : TESTED A T [facility] 6720 (BEAKER) (test code = [facility], 153) 179[address]: Staff Appraiser/Techni sebastian ID = [id number] for THAD ARROYO HEMOGLOBIN AND [id number] 16:58:00 Test Item Value Reference Range Interpretation Comments HEMOGLOBIN (BEAKER) (test code = 12.1 GM/DL 11.2-15.7 410) HEMATOCRIT (BEAKER) (test code = 36.7 % 34.1-44.9 411) Staff Appraiser ID - [id number] 10:03:00 Test Item Value Reference Range Interpretation Comments HEMOGLOBIN A1C (BEAKER) (test code = 8.4 % 4.3-6.1 H 368) HEMOGLOBIN AND [id number] 09:18:00 Test Item Value Reference Range Interpretation Comments HEMOGLOBIN (BEAKER) (test code = 12.8 GM/DL 11.2-15.7 410) HEMATOCRIT (BEAKER) (test code = 38.7 % 34.1-44.9 411) Staff Appraiser ID - [id number] AND PARASITE [id number] 12:20:00 Test Item Value Reference Range Interpretation [...] (test seen seen code = 248) BLOOD [id number] 08:00:00 Test Item Value Reference Range Interpretation Comments CULTURE (BEAKER) (test No growth in 5 days code = 1095) BLOOD [id number] 08:00:00 Test Item Value Reference Range Interpretation Comments CULTURE (BEAKER) (test No growth in 5 days code = 1095) STOOL CULTURE + SHIGA [id number] 11:02:00 Test Item Value Reference Range Interpretation Comments CULTURE (BEAKER) No Salmonella, Shigella (test code = 1095) or Campylobacter isolated POCT-GLUCOSE [id number] 12:51:00 Test Item Value Reference Range Interpretation Comments POC-GLUCOSE METER 255 mg/dL 70-110 H : Notified RN/MD: (ENRICO) (test code = TESTED AT [place] [address] 1538) [facility], [address]: Staff Appraiser/Techni sebastian ID = [id number] for AN KAILTIN POLLARD POCT-GLUCOSE [id number] 08:22:00 Test Item Value Reference Range Interpretation Comments POC-GLUCOSE METER 197 mg/dL 70-110 H : [facility] [facility] (BEAKER) (test code = [facility] Leann [facility], 1538) 92461: Staff Appraiser/Techni sebastian ID = [id number] for AN KAITLIN POLLARD BASIC METABOLIC [id number] 05:46:00 Test Item Value Reference Range Interpretation [...] S NOT APPLICABLE FOR DIALYSIS PATIEN TS. Staff Appraiser ID - EVELIA MSpecimen slightly ictericPOCT-GLUCOSE [id number] 22:22:00 Test Item Value Reference Range Interpretation Comments POC-GLUCOSE METER 323 mg/dL 70-110 H : TESTED A T [facility] 6720 (BEAKER) (test code = [facility], 153) 36604: Staff Appraiser/Techni sebastian ID = [id number] for Tai Lara POCT-GLUCOSE [id number] 17:46:00 Test Item Value Reference Range Interpretation Comments POC-GLUCOSE METER 245 mg/dL 70-110 H : TESTED A T [facility] 6720 (BEAKER) (test code = [facility] [employer] [facility], 153) 24376: Staff Appraiser/Techni sebastian ID = [id number] for TAYLOR KEANE POCT-GLUCOSE [id number] 12:12:00 Test Item Value Reference Range Interpretation Comments POC-GLUCOSE METER 317 mg/dL 70-110 H : TESTED A T [facility] 6720 (BEAKER) (test code = [facility], 153) 44845: Staff Appraiser/Techni sebastian ID = [id number] for BR OWNTAYLRO SHIGA TOXIN [id number] 10:32:00 Test Item Value Reference Range Interpretation Comments SHIGA TOXIN 1 (BEAKER) (test Not detected Not detected code = 2177) SHIGA TOXIN 2 (BEAKER) (test Not detected Not detected code = 2179) STOOL PATH [id number] 10:15:00 Test Item Value Reference Range Interpretation Comments PATHOGEN EXAM CHARGED (BEAKER) (test Done code = 2381) POCT-GLUCOSE [id number] 08:57:00 Test Item Value Reference Range Interpretation Comments POC-GLUCOSE METER 205 mg/dL 70-110 H : TESTED A T [facility] 6720 (BEAKER) (test code = JEANE Noriega [facility], 1538) 86556: Staff Appraiser/Techni sebastian ID = [id number] for TAYLOR KEANE HEMOGLOBIN [id number] 08:19:00 Test Item Value Reference Range Interpretation Comments HEMOGLOBIN A1C (BEAKER) (test code = 8.4 % 4.3-6.1 H 368) BASIC METABOLIC [id number] 07:56:00 Test Item Value Reference Range Interpretation [...] S NOT APPLICABLE FOR DIALYSIS PATIEN TS. Staff Appraiser ID - PIAYA LSpecimen slightly ictericPOCT-GLUCOSE [id number] 22:55:00 Test Item Value Reference Range Interpretation Comments POC-GLUCOSE METER 229 mg/dL 70-110 H : TESTED A T [facility] 6720 (BEAKER) (test code = JEANE Noriega [facility], 1538) 54318: Staff Appraiser/Techni sebastian ID = [id number] for Karla Jackson POCT-GLUCOSE [id number] 17:45:00 Test Item Value Reference Range Interpretation Comments POC-GLUCOSE METER 306 mg/dL 70-110 H : TESTED A T [facility] 6720 (BEAKER) (test code = [facility], 1538) 27500: Staff Appraiser/Techni sebastian ID = [id number] for DI EPSTEIN POCT-GLUCOSE [id number] 11:59:00 Test Item Value Reference Range Interpretation Comments POC-GLUCOSE METER 150 mg/dL 70-110 H : TESTED A T [facility] 6720 (BEAKER) (test code = [facility], 1538) 36005: Staff Appraiser/Techni sebastian ID = [id number] for DI EPSTEIN [id number] 10:18:00 Test Item Value Reference Range Interpretation Comments POTASSIUM (BEAKER) 4.9 meq/L 3.5-5.1 Specimen slightly (test code = 379) hemolyzed Staff Appraiser ID - EVELIA MPOCT-GLUCOSE [id number] 08:04:00 Test Item Value Reference Range Interpretation Comments POC-GLUCOSE METER 156 mg/dL 70-110 H : TESTED A T [facility] 6720 (BEAKER) (test code = [facility], 153) 58196: Staff Appraiser/Techni sebastian ID = [id number] for DI EPSTEIN BASIC METABOLIC [id number] 05:51:00 Test Item Value Reference Range Interpretation [...] S NOT APPLICABLE FOR DIALYSIS PATIEN TS. Staff Appraiser ID - PIAYA LSpecimen slightly ictericC. DIFFICILE GDH [id number] 05:03:00 Test Item Value Reference Range Interpretation Comments CDT TOXIN (test code Negative Negative = [id number]) CDT GDH ANTIGEN Positive Negative A C. difficile present but (test code = toxin not detec dominic. [id number]) Indicates colon ization with non-toxige faith strain or level of tox in below detectable leve ls. No need for enteri c isolation. Latasha tment is rarely needed ( only when strong clinical suspicion for Clostridium difficile infection) Testing performed by [email or web address] Rapid Cassette Assay. For GDH, published sensitivity of the assay is 98.7% compared to cytotoxicity testing. For Toxin AB, published sensitivity is 87.8% and specificity 99.4% compared to cytotoxicity testing.Verification of kit performance was done by the [facility] prior to clinical use.FECAL [id number] 00:34:00 Test Item Value Reference Range Interpretation Comments FECAL LEUKOCYTES No fecal leukocytes No fecal leukocytes (BEAKER) (test code = seen seen 992) POCT-GLUCOSE [id number] 22:14:00 Test Item Value Reference Range Interpretation Comments POC-GLUCOSE METER 224 mg/dL 70-110 H : TESTED A T [facility] 6720 (BEAKER) (test code = [facility] [employer] [facility], 1538) 84678: Staff Appraiser/Techni sebastian ID = [id number] for GELACIO BLOCK SHAHZAD POCT-GLUCOSE [id number] 14:51:00 Test Item Value Reference Range Interpretation Comments POC-GLUCOSE METER 120 mg/dL 70-110 H : TESTED A T [facility] 6720 (BEAKER) (test code = [facility], 1538) 64141: Staff Appraiser/Techni sebastian ID = [id number] for SA JET VÁZQUEZMA BASIC METABOLIC [id number] 11:35:00 Test Item Value Reference Range Interpretation [...] S NOT APPLICABLE FOR DIALYSIS PATIEN TS. Staff Appraiser ID - EVELIA MSpecimen slightly [id number] 11:32:00 Test Item Value Reference Range Interpretation Comments MAGNESIUM (BEAKER) (test code = 1.9 mg/dL 1.6-2.6 627) Staff Appraiser ID - EVELIA MHEPATIC FUNCTION [id number] 11:32:00 Test Item Value Reference Range Interpretation [...] code = 107 U/L 6-55 H 347) Staff Appraiser ID - EVELIA MSpecimen slightly ictericPROTHROMBIN TIME/[id number] 07:18:00 Test Item Value Reference Range Interpretation [...] mechanical heart valves.CBC W/PLT COUNT & AUTO [id number] 07:11:00 Test Item Value Reference Range Interpretation [...] PERCENT (BEAKER) (test code = 2801) BLOOD [id number] 23:00:00 Test Item Value Reference Range Interpretation Comments CULTURE (BEAKER) (test No growth in 5 days code = 1095) BLOOD [id number] 23:00:00 Test Item Value Reference Range Interpretation Comments CULTURE (BEAKER) (test No growth in 5 days code = 1095) PROTEIN ELECTROPHORESIS, [id number] 13:55:00 Test Item Value Reference Range Interpretation [...] (BEAKER) (test code = mild acute inflammation 2612) coupled with urine protein loss and/or protein-losing enteropathy. No monoclonal bands detected. [id number] Yudith Emanuel MD (BEAKER) (test code = (electronic signature) 2711) PROTEIN TOTAL SERUM, 5.0 gm/dL 6.0-8.3 L SPEP (BEAKER) (test code = 0880) Staff Appraiser ID - EVELIA MHEPATITIS PANEL, [id number] 17:11:00 Test Item Value Reference Range Interpretation Comments HEPATITIS A IGM ANTIBODY (BEAKER) Nonreactive Nonreactive (test code = 498) HEPATITIS B CORE IGM ANTIBODY Nonreactive Nonreactive (BEAKER) (test code = 645) HEPATITIS C ANTIBODY (BEAKER) Nonreactive Nonreactive (test code = 367) HEPATITIS B SURFACE ANTIGEN (2) Nonreactive Nonreactive (BEAKER) (test code = 2585) Staff Appraiser ID - DBPOCT-GLUCOSE [id number] 16:42:00 Test Item Value Reference Range Interpretation Comments POC-GLUCOSE METER 236 mg/dL 70-110 H : TESTED A T [facility] 6720 (BEAKER) (test code = [facility], 1538) 50665: Staff Appraiser/Techni sebastian ID = [id number] for Giulia Wade POCT-GLUCOSE [id number] 12:36:00 Test Item Value Reference Range Interpretation Comments POC-GLUCOSE METER 276 mg/dL 70-110 H : TESTED A T [facility] 6720 (BEAKER) (test code = [facility], 1538) 26419: Staff Appraiser/Techni sebastian ID = [id number] for Giulia Wade HEMOGLOBIN [id number] 12:07:00 Test Item Value Reference Range Interpretation Comments HEMOGLOBIN A1C (BEAKER) (test code = 8.0 % 4.3-6.1 H 368) COMPREHENSIVE METABOLIC [id number] 11:48:00 Test Item Value Reference Range Interpretation [...] S NOT APPLICABLE FOR DIALYSIS PATIEN TS. Staff Appraiser ID - SUSI Leaimedorys moderately ictericLIPID [id number] 11:48:00 Test Item Value Reference Range Interpretation [...] Borderline 130-159 High 160-189 Very High >=190 Staff Appraiser ID Juan A Ramon moderately ictericTSH/FREE T4 IF [id number] 10:29:00 Test Item Value Reference Range Interpretation Comments THYROID STIMULATING HORMONE 3.805 uIU/mL 0.350-4.940 (BEAKER) (test code = 772) Staff Appraiser ID Juan A [id number] 09:30:00 Test Item Value Reference Range Interpretation Comments FERRITIN (BEAKER) (test code = 292.76 ng/mL 5.00-275.00 H 361) Staff Appraiser ID - AAHAMIDVITAMIN B12 AND [id number] 09:30:00 Test Item Value Reference Range Interpretation Comments VITAMIN B12 (BEAKER) (test code = 1155 pg/mL 213-816 H 774) FOLATE (BEAKER) (test code = 362) 8.50 ng/mL >=7.00 Staff Appraiser ID - AAHAMIDPOCT-GLUCOSE [id number] 08:10:00 Test Item Value Reference Range Interpretation Comments POC-GLUCOSE METER 197 mg/dL 70-110 H : TESTED A T [facility] 6720 (BEAKER) (test code = [facility] [place], 1538) 43946: Staff Appraiser/Techni sebastian ID = [id number] for Or Giulia mckee MR, BRAIN, [id number] 02:52:00Unlisted Reason for Exam - Click Yes [...] lesion consistent with a meningioma. The lesion coleen ses/invades of the right transverse sinus which remains patent likely due to collateral veins. Signed: Rao Torre MDReport Verified Date/Time: 04/24/2020 02:52:33 U/S, ABDOMINAL, [id number] 23:25:00Abdomen limited area? Add comment if clarification [...] Torre MDReport Verified Date/Time: 04/23/2020 23:25:58 POCT-GLUCOSE [id number] 23:17:00 Test Item Value Reference Range Interpretation Comments POC-GLUCOSE METER 206 mg/dL 70-110 H : TESTED A T [facility] 67 ([facility]) (test code = [facility] Leann [facility], 1538) 43626: Staff Appraiser/Techni sebastian ID = [id number] for RONEL MUSTAFAA POCT-GLUCOSE [id number] 17:40:00 Test Item Value Reference Range Interpretation Comments POC-GLUCOSE METER 249 mg/dL 70-110 H : Notified RN/MD: ([facility]) (test code = TESTED AT [facility] 6720 1538) [facility], [address]: Staff Appraiser/Techni sebastian ID = [id number] for Arleth Linda gambinony CT, BRAIN, WITHOUT [id number] 10:32:00Unlisted Reason for Exam - Click Yes [...] No evidence of acute territorial infarct. No hy drocephalus. Generalized cerebral atrophy with ex vacuo dilatation [...] (BEAKER) (test code = 2801) BASIC METABOLIC [id number] 05:03:00 Test Item Value Reference Range Interpretation [...] S NOT APPLICABLE FOR DIALYSIS PATIEN TS. Staff Appraiser ID - EVELIA MSpecimen moderately ictericHEPATIC FUNCTION [id number] 05:03:00 Test Item Value Reference Range Interpretation [...] Specimen moderately (test code = 347) hemolyzed Staff Appraiser ID - EVELIA MSpecimen moderately ictericPOCT-GLUCOSE [id number] 04:01:00 Test Item Value Reference Range Interpretation Comments POC-GLUCOSE METER 193 mg/dL 70-110 H : TESTED A T [facility] 6720 (BEAKER) (test code [facility], = 1538) 98908: Staff Appraiser/Techni sebastian ID = [id number] for RUSSELL , ESME POCT-GLUCOSE [id number] 21:04:00 Test Item Value Reference Range Interpretation Comments POC-GLUCOSE METER 198 mg/dL 70-110 H : TESTED A T [facility] 6720 (BEAKER) (test code = [facility]ie[facility] [place], 1538) 67982: Staff Appraiser/Techni sebastian ID = [id number] for Alla Molina POCT-GLUCOSE [id number] 16:17:00 Test Item Value Reference Range Interpretation Comments POC-GLUCOSE METER 266 mg/dL 70-110 H : TESTED A T [facility] 6720 (BEAKER) (test code = JE[facility] Noriega [place], 1538) 33171: Staff Appraiser/Techni sebastian ID = [id number] for BRUCE DUMONT SARS-COV2/RT-PCR ([facility])2020-04-22 14:59:00 Test Item Value Reference Range Interpretation Comments SARS-COV2/RT-PCR (test Negative Not Detected, Negative, code = 7897306) See external report for linked test SARS-COV-2 PERFORMING LAB [facility] (test code = 8019791) Negative result for this test determines that [...] of the Act.Fact Sheet for Healthcare Prov iders:https://www.[employer]/sites/default/files/product/documents/Fact_Sheet_HC _Kggctavyh_Jcly_DCCR-JrN-0.pdfFact Sheet for Healthcare Patients:https://www.[employer]/sites/default/files/product/docume nts/Quwt_Mnrgj_Kmisevid_Rskh_HYPE-QoF-7.pdfPerforming Laboratory:[place] [id number], [place] [address]FMCL-ZKLZOAB METER 2020-04-22 12:21:00 Test Item Value Reference Range Interpretation Comments POC-GLUCOSE METER 210 mg/dL 70-110 H : TESTED A T [facility] 6720 (BEAKER) (test code = JEANE Noriega [facility], 1538) 56171: Staff Appraiser/Techni sebastian ID = [id number] for BRUCE DUMONT [id number] 11:00:00 Test Item Value Reference Range Interpretation Comments PHOSPHORUS (BEAKER) (test code = 3.1 mg/dL 2.3-4.7 604) Staff Appraiser ID - EVELIA [id number] 11:00:00 Test Item Value Reference Range Interpretation Comments MAGNESIUM (BEAKER) (test code = 1.9 mg/dL 1.6-2.6 627) Staff Appraiser ID - EVELIA MBASIC METABOLIC [id number] 11:00:00 Test Item Value Reference Range Interpretation [...] S NOT APPLICABLE FOR DIALYSIS PATIEN TS. Staff Appraiser ID - EVELIA Giovanniecimen moderately ictericHEPATIC FUNCTION [id number] 11:00:00 Test Item Value Reference Range Interpretation [...] code = 112 U/L 6-55 H 347) Staff Appraiser ID Juan A EVELIA Tristen moderately ictericPOCT-GLUCOSE [id number] 08:40:00 Test Item Value Reference Range Interpretation Comments POC-GLUCOSE METER 187 mg/dL 70-110 H : TESTED A T [facility] 6720 (BEAKER) (test code = [facility] [place], 1538) 21236: Staff Appraiser/Techni sebastian ID = [id number] for BRUCE DUMONT CBC W/PLT COUNT & AUTO [id number] 07:04:00 Test Item Value Reference Range Interpretation [...] PERCENT (BEAKER) (test code = 2801) POCT-GLUCOSE [id number] 23:41:00 Test Item Value Reference Range Interpretation Comments POC-GLUCOSE METER 211 mg/dL 70-110 H : TESTED A T [facility] 6720 (BEAKER) (test code = [facility] [place], 1538) [address]: Staff Appraiser/Techni sebastian ID = [id number] for SHABBIR BEAN URINALYSIS W/ [id number] 21:58:00 Test Item Value Reference Range Interpretation [...] = 516) SOURCE(BEAKER) (test code = 2795) Staff Appraiser ID - [auto]Staff Appraiser ID - hankFUNGUS CULTURE + [id number] 18:07:00 Test Item Value Reference Range Interpretation Comments CULTURE (BEAKER) A 3+ Lorri albicans (test code = 1095) FUNGUS SMEAR No fungi seen (BEAKER) (test code = 1406) ANAEROBIC [id number] 18:52:00 Test Item Value Reference Range Interpretation Comments CULTURE (BEAKER) (test No anaerobes isolated code = 1095) CBC W/PLT COUNT & AUTO [id number] 06:39:00 Test Item Value Reference Range Interpretation [...] (BEAKER) (test code = 2801) COMPREHENSIVE METABOLIC [id number] 06:17:00 Test Item Value Reference Range Interpretation [...] S NOT APPLICABLE FOR DIALYSIS PATIEN TS. Staff Appraiser ID - EVELIA OMPUNIVERSITY HOSPITALS HEALTH SYSTEMENSIVE METABOLIC [id number] 05:24:00 Test Item Value Reference Range Interpretation [...] S NOT APPLICABLE FOR DIALYSIS PATIEN TS. Staff Appraiser ID - EDASIWOUND CULTURE + GRAM [id number] 10:29:00 Test Item Value Reference Range Interpretation [...] <1+ budding yeast (BEAKER) (test code = 976198) CBC W/PLT COUNT & AUTO [id number] 05:33:00 Test Item Value Reference Range Interpretation [...] (BEAKER) (test code = 2801) COMPREHENSIVE METABOLIC [id number] 05:08:00 Test Item Value Reference Range Interpretation [...] S NOT APPLICABLE FOR DIALYSIS PATIEN TS. Staff Appraiser ID - EDASISpecimen slightly ictericCOMPREHENSIVE METABOLIC PANEL [...] S NOT APPLICABLE FOR DIALYSIS PATIEN TS. Staff Appraiser ID - PIAYA LSpecimen slightly ictericCBC W/PLT COUNT & AUTO [id number] 05:03:00 Test Item Value Reference Range Interpretation [...] (BEAKER) (test code = 2801) CT, DRAINAGE, [id number] 12:12:00Reason for exam:->Diverticulitis with increasing size of abscessFINAL REPORT PROCEDURE: CT, DRAINAGE, ABDOMINAL DOSE REDUCTION: The examinationwas performed according to departmental dose-optimization program which includes automated exposure c ontrol, adjustment of the mA and/or kV according to patient size and/or use of iterative reconstruction technique. HISTORY: Diverticulitis with increasing size of abscess Staff Appraiser: Bam Ko MD Moderate sedation: See nursing [...] dilated using serial dilators. Subsequently a 8 Vincentian all-purpose drainage catheter was advanced into the [...] Ko Verified Date/Time: 04/01/2020 12:12:30 Reading Location: [address] Reading Room CBC W/PLT COUNT & AUTO [id number] 06:34:00 Test Item Value Reference Range Interpretation [...] 0-1 PERCENT (BEAKER) (test code = 2801) [id number] 06:33:00 Test Item Value Reference Range Interpretation Comments MAGNESIUM (BEAKER) 2.0 mg/dL 1.6-2.6 Specimen slightly (test code = 627) hemolyzed Staff Appraiser ID - EVELIA [id number] 06:33:00 Test Item Value Reference Range Interpretation Comments PHOSPHORUS (BEAKER) 2.0 mg/dL 2.3-4.7 L Specimen slightly (test code = 604) hemolyzed Staff Appraiser ID - EVELIA MCOMPREHENSIVE METABOLIC [id number] 06:33:00 Test Item Value Reference Range Interpretation [...] S NOT APPLICABLE FOR DIALYSIS PATIEN TS. Staff Appraiser ID - EVELIA MSpecimen slightly ictericCOMPREHENSIVE METABOLIC [...] S NOT APPLICABLE FOR DIALYSIS PATIEN TS. Staff Appraiser ID - MICHELL CSpecimen slightly [id number] 09:49:00 Test Item Value Reference Range Interpretation Comments MAGNESIUM (BEAKER) (test code = 2.1 mg/dL 1.6-2.6 627) Staff Appraiser ID - MICHELL CLACTIC ACID, [id number] 09:45:00 Test Item Value Reference Range Interpretation Comments LACTATE BLOOD VENOUS (2) (BEAKER) 1.05 mmol/L 0.50-2.20 (test code = 2872) Staff Appraiser ID - MICHELL CPT/[id number] 09:35:00 Test Item Value Reference Range Interpretation [...] mechanical heart valves.CBC W/PLT COUNT & AUTO [id number] 09:26:00 Test Item Value Reference Range Interpretation [...] % 0-1 PERCENT (BEAKER) (test code = 7367)
[2022-12-18] MEDS ORDERED: cloNIDine HCL 0.1 MG TAB ONE (17:10)
--- NOTE | 2022-12-18 17:12 | RAD REPORT ---
EXAM DESCRIPTION: CT - Head Brain Wo Cont - 12/18/2022 5:00 pm CLINICAL HISTORY: Headache/hypertension COMPARISON: 2019 TECHNIQUE: Computed axial tomography of the head was obtained. IV contrast was not requested. All CT scans are performed using dose optimization technique as appropriate and may include automated exposure control or mA/KV adjustment according to patient size. FINDINGS: An intracranial bleed is not seen The ventricles are normal in caliber No extra-axial fluid collection is noted. A 19 millimeter calcified mass abuts the right aspect of the tentorium and right occipital bone. No s urrounding edema. This probably represents a meningioma. It is without significant change. Empty sella turcica Fluid within the sinuses/ mastoids is not seen. IMPRESSION: No acute intracranial abnormality is seen If patient's symptoms persist MRI of the brain would be recommended
--- NOTE | 2022-12-18 17:13 | RAD REPORT ---
EXAM DESCRIPTION: Felice Single View12/18/2022 4:25 pm CLINICAL HISTORY: Hypertension COMPARISON: 2020 FINDINGS: The lungs appear clear of acute infiltrate. The heart is normal size. Small hiatal hernia IMPRESSION: No acute abnormalities displayed
[2022-12-18 18:46] LABS: Absolute Lymphocytes (CBC) 0.9 K/uL (0.7-4.9); Hematocrit 40.1 % (36.0-45.0); Lymphocytes % 10.2 % (15.3-44.8); RBC Red Blood Cell Count 4.83 M/uL (3.86-4.86)
[2022-12-18 19:01] LABS: Specific Gravity < 1.005 (1.005-1.030); Urine Bacteria None Seen /HPF (<20); Urine Bilirubin NEGATIVE (Negative); Urine Blood Negative (Negative); Urine Clarity Clear (Clear); Urine Color Colorless (Yellow); Urine Glucose NEGATIVE (Negative); Urine Protein NEGATIVE (Negative); Urine RBC <5 /HPF (None Seen); Urine Urobilinogen Normal (Normal)
[2022-12-18 19:07] LABS: Albumin 3.3 g/dL (3.4-5.0); Bilirubin Direct 0.2 mg/dL (0-0.2); Bilirubin Total 0.4 mg/dL (0.2-1.0); Potassium 3.8 mEq/L (3.5-5.1); Protein, Total 6.5 g/dL (6.4-8.2); Troponin High Sensitivity 24.3 pg/mL (<58.9)
--- NOTE | 2022-12-18 19:39 | EDPHYS ---
Physician Documentation [facility] Name: Radha Ocampo Age: 82 yrs Sex: Female : 1940 Arrival Date: 12/18/2022 Time: 15:26 Bed 16 Private MD: Toby Parks V ED Physician [place] HPI: 12/18 16:15 This 82 yrs old Female presents to ER via Ambulatory with complaints of High Blood cp Pressure, Headache, Urinary Problem. 16:15 The patient has elevated blood pressure and discovered this at home, with a home cp device, at a physician's office. Onset: The symptoms/episode began/occurred this morning. Associated signs and symptoms: Pertinent positives: headache, urine odor, Pertinent negatives: chest pain, dizziness, vomiting, weakness. Severity of symptoms: At its worst the blood pressure was 229 mm Hg, in the emergency department the blood pressure is unchanged. Historical: - Allergies: 15:55 meperidine HCl (rash); aa5 15:55 Morphine; aa5 - PMHx: 15:55 ADD/ADHD; Depression; DM chemical induced; giant cell arteritis; Giant Cell Arthritis; aa5 Hyperlipidemia; Hypertension; Hypothyroidism; Myocardial infarction; renal cell carcinoma; renal cell carcinoma contained; stage 3 kidney failure; - Immunization history:: Adult Immunizations up to date. - Social history:: Smoking status: Patient denies any tobacco usage or history of. Patient/guardian denies using alcohol. ROS: 16:20 Constitutional: Negative for body aches, chills, fever, poor PO intake. cp 16:20 Cardiovascular: Negative for chest pain, edema, palpitations. cp 16:20 Respiratory: Negative for cough, shortness of breath, wheezing. 16:20 : Positive for foul smelling urine, Negative for hematuria, burning with urination. 16:20 Neuro: Positive for headache, Negative for altered mental status, numbness, tingling, weakness. 16:20 Eyes: Negative for injury, pain, redness, and discharge. cp 16:20 ENT: Negative for drainage from ear(s), ear pain, sore throat, difficulty swallowing, cp difficulty handling secretions. 16:20 Abdomen/GI: Negative for abdominal pain, vomiting, diarrhea, constipation. 16:20 All other systems are negative. Exam: 16:25 Constitutional: The patient appears in no acute distress, alert, awake, cp non-diaphoretic, non-toxic, well developed, well nourished. 16:25 Head/Face: Normocephalic, atraumatic. cp 16:25 Eyes: Periorbital structures: appear normal, Pupils: equal, round, and reactive to light and accomodation, Extraocular movements: intact throughout, Conjunctiva: normal, no exudate, no injection, Sclera: no appreciated abnormality, Lids and lashes: appear normal, bilaterally. 16:25 ENT: External ear(s): are unremarkable, Nose: is normal, Mouth: Lips: moist, Oral mucosa: pink and intact, moist, Posterior pharynx: is normal, airway is patent, no erythema, no exudate. 16:25 Neck: ROM/movement: is normal, is supple, without pain, no range of motions limitations. 16:25 Chest/axilla: Inspection: normal. 16:25 Cardiovascular: Rate: normal, Rhythm: regular. 16:25 Respiratory: the patient does not display signs of respiratory distress, Respirations: normal, no use of accessory muscles, no retractions, labored breathing, is not present, Breath sounds: are clear throughout, no decreased breath sounds, no stridor, no wheezing. 16:25 Abdomen/GI: Exam negative for discomfort, distension, guarding, Inspection: abdomen appears normal. 18:30 ECG was reviewed by the Attending Physician. cp Vital Signs: 15:53 BP 220 / 110; Pulse 82; Resp 16 S; Temp 98.2(TE); Pulse Ox 98% on R/A; Weight 63.5 kg aa5 (R); Height 5 ft. 0 in. (R); 17:20 BP 208 / 63; Pulse 65; Resp 16; Pulse Ox 97% on R/A; eh3 18:00 BP 188 / 59; Pulse 65; Resp 18; Pulse Ox 98% on R/A; eh3 18:45 BP 160 / 60; Pulse 56; Resp 16; Pulse Ox 98% on R/A; eh3 18:49 BP 160 / 60; eh3 19:30 BP 188 / 73; Pulse 59; Resp 16; Pulse Ox 98% on R/A; eh3 15:53 Body Mass Index 27.34 (63.50 kg, 152.4 cm) aa5 MDM: 15:49 Patient medically screened. cheri 16:30 Differential diagnosis: hypertensive crisis, Malignant HTN, CVA, intracerebral cp hemorrhage. 19:36 Data reviewed: vital signs, nurses notes, lab test result(s), EKG, radiologic studies, cp CT scan, plain films. 12/18 16:10 Order name: Basic Metabolic Panel; Complete Time: 19:10 / 19:10 Interpretation: Normal except: GLUC 201; CRE 1.03; GFR 55. 12/18 16:10 Order name: CBC with Diff; Complete Time: 19:10 12/18 19:10 Interpretation: Normal except: MCH 26.6; RDW 18.8; JACIEL% 80.2; LYM% 10.2. 12/18 16:10 Order name: LFT's; Complete Time: 19:10 12/18 19:10 Interpretation: Normal except: ALK 126; ALB 3.3; A/G 1.0. 12/18 16:10 Order name: Magnesium; Complete Time: 19:10 12/18 16:10 Order name: NT PRO-BNP; Complete Time: 19:10 12/18 19:11 Interpretation: Abnormal: NT PRO-BNP 596. 12/18 16:10 Order name: PT-INR 12/18 16:10 Order name: Troponin HS; Complete Time: 19:10 / 16:10 Order name: Urinalysis W/Microscopic; Complete Time: 19:10 12/18 16:10 Order name: XRAY Chest (1 view); Complete Time: 17:30 12/18 17:30 Interpretation: Report review. 12/18 16:18 Order name: CT Head Brain wo Cont; Complete Time: 17:30 12/18 17:30 Interpretation: Report reviewed. 12/18 16:10 Order name: EKG; Complete Time: 16:10 12/18 16:10 Order name: Cardiac monitoring; Complete Time: 18:46 / 16:10 Order name: EKG - Nurse/Tech; Complete Time: 18:46 12/18 16:10 Order name: IV Saline Lock; Complete Time: 18:46 12/18 16:10 Order name: Labs collected and sent; Complete Time: 18:46 12/18 16:10 Order name: O2 Per Protocol; Complete Time: 18:46 cp 12/18 16:10 Order name: O2 Sat Monitoring; Complete Time: 18:46 cp 12/18 17:31 Order name: Vital Signs: please update; Complete Time: 18:46 cp 12/18 18:50 Order name: Labs - recollect needed: recollect blue top, fill to the line; Complete bd Time: 19:30 EC:30 Rate is 62 beats/min. Rhythm is regular. HI interval is normal. QRS interval is normal. cp QT interval is normal. T waves are Inverted in leads aVL, aVR. Interpreted by me. Reviewed by me. Administered Medications: 17:20 Drug: cloNIDine PO 0.2 mg Route: PO; 3 18:49 Follow up: BP 160 / 60; Response: Blood pressure is lowered 3 Disposition Summary: 12/18/22 19:38 Discharge Ordered Location: Home cp Problem: chronic cp Symptoms: have improved cp Condition: Stable cp Diagnosis - Hypertensive heart disease without heart failure cp - Hyperglycemia, unspecified cp Followup: cp - With: Toby Parks MD - When: Tomorrow - Reason: Recheck today's complaints Discharge Instructions: - Discharge Summary Sheet cp - Hyperglycemia cp - Hypertension, Adult cp - Blood Glucose Monitoring, Adult cp - Aspirin and Your Heart cp - Form - Blood Pressure Record Sheet cp - How to Take Your Blood Pressure cp Forms: - Medication Reconciliation Form cp - Thank You Letter cp - Antibiotic Education cp - Prescription Opioid Use cp Prescriptions: - clonidine HCl 0.2 mg Oral tablet - take 1 tablet by ORAL route every 12 hours As needed as needed for elevated cp blood pressure above 180; 10 tablet; Refills: 0, Product Selection Permitted Signatures: Dispatcher [employer] Manasa Andrade Corey, MD MD cha Calderon, Audri, RN RN aa5 [place] PA PA cp Hall, Erin, RN RN 3
--- NOTE | 2022-12-18 19:39 | ER ---
Nurse's Notes [facility] Name: Radha Ocampo Age: 82 yrs Sex: Female : 1940 Arrival Date: 12/18/2022 Time: 15:26 Bed 16 Private MD: Toby Parks V Diagnosis: Hypertensive heart disease without heart failure;Hyperglycemia, unspecified Presentation: 12/18 15:53 Chief complaint: Patient states: "I went to the dentist this morning and my blood aa5 pressure was about 170 (systolic) and at home the highest it was 229/91". Pt reports headache, also states "I think I have a UTI because my pee smells bad". Coronavirus screen: headache. Ebola Screen: Patient denies travel to an Ebola-affected area in the 21 days before illness onset. Initial Sepsis Screen: Does the patient meet any 2 criteria? No. Patient's initial sepsis screen is negative. Does the patient have a suspected source of infection? No. Patient's initial sepsis screen is negative. Risk Assessment: Do you want to hurt yourself or someone else? Patient reports no desire to harm self or others. Onset of symptoms was December 2022. 15:53 Method Of Arrival: Ambulatory aa5 15:53 Acuity: CIARA 2 aa5 Triage Assessment: 16:45 Headache History: The patient has had previous headaches and this one is similar to eh3 previous episodes. General: Appears in no apparent distress. uncomfortable, Behavior is calm, cooperative, appropriate for age. Pain: Complains of pain in head Pain currently is 5 out of 10 on a pain scale. Pain began 1 day ago. Also complains of no other associated symptoms. Historical: - Allergies: 15:55 meperidine HCl (rash); aa5 15:55 Morphine; aa5 - PMHx: 15:55 ADD/ADHD; Depression; DM chemical induced; giant cell arteritis; Giant Cell Arthritis; aa5 Hyperlipidemia; Hypertension; Hypothyroidism; Myocardial infarction; renal cell carcinoma; renal cell carcinoma contained; stage 3 kidney failure; - Immunization history:: Adult Immunizations up to date. - Social history:: Smoking status: Patient denies any tobacco usage or history of. Patient/guardian denies using alcohol. Screenin:45 [facility] ED Fall Risk Assessment (Adult) Score/Fall Risk Level 0 - 2 = Low Risk. Abuse eh3 screen: Denies threats or abuse. Denies injuries from another. Nutritional screening: No deficits noted. Tuberculosis screening: No symptoms or risk factors identified. Assessment: 16:45 General: Appears in no apparent distress. comfortable, Behavior is calm, cooperative, eh3 appropriate for age. Pain: Complains of pain in head. Neuro: Level of Consciousness is awake, alert, obeys commands, Oriented to person, place, time, situation. Cardiovascular: Capillary refill < 3 seconds Patient's skin is warm and dry. Respiratory: Airway is patent Respiratory effort is even, unlabored, Respiratory pattern is regular, symmetrical. GI: Abdomen is round non-distended. : Reports urgency, urinary frequency. EENT: No signs and/or symptoms were reported regarding the EENT system. Derm: Skin is pink, warm \\T\\ dry. Musculoskeletal: No signs and/or symptoms reported regarding the musculoskeletal system. 18:00 Reassessment: Patient appears in no apparent distress at this time. Patient and/or 3 family updated on plan of care and expected duration. Pain level reassessed. Patient is alert, oriented x 3, equal unlabored respirations, skin warm/dry/pink. 19:00 Reassessment: Patient appears in no apparent distress at this time. Patient and/or eh3 family updated on plan of care and expected duration. Pain level reassessed. Patient is alert, oriented x 3, equal unlabored respirations, skin warm/dry/pink. Vital Signs: 15:53 BP 220 / 110; Pulse 82; Resp 16 S; Temp 98.2(TE); Pulse Ox 98% on R/A; Weight 63.5 kg aa5 (R); Height 5 ft. 0 in. (R); 17:20 BP 208 / 63; Pulse 65; Resp 16; Pulse Ox 97% on R/A; eh3 18:00 BP 188 / 59; Pulse 65; Resp 18; Pulse Ox 98% on R/A; eh3 18:45 BP 160 / 60; Pulse 56; Resp 16; Pulse Ox 98% on R/A; eh3 18:49 BP 160 / 60; eh3 19:30 BP 188 / 73; Pulse 59; Resp 16; Pulse Ox 98% on R/A; eh3 15:53 Body Mass Index 27.34 (63.50 kg, 152.4 cm) aa5 ED Course: 15:28 Patient arrived in ED. as 15:40 [place] PA is PHCP. cp 15:40 [place] MD is Attending Physician. cp 15:53 Arm band placed on. aa5 15:55 Triage completed. aa5 16:27 XRAY Chest (1 view) In Process Unspecified. EDMS 16:45 Chelle Frost, RN is Primary Nurse. eh3 16:45 Patient has correct armband on for positive identification. Bed in low position. Call eh3 light in reach. Side rails up X2. Adult w/ patient. Client placed on continuous cardiac and pulse oximetry monitoring. NIBP monitoring applied. Door closed. Noise minimized. Warm blanket given. 16:45 Inserted saline lock: 22 gauge in right antecubital area, using aseptic technique. eh3 Blood collected. 17:02 CT Head Brain wo Cont In Process Unspecified. EDMS 19:19 Toby Parks MD is Private Physician. cp 19:33 No provider procedures requiring assistance completed. eh3 19:37 Toby Parks MD is Referral Physician. cp 20:04 IV discontinued, intact, bleeding controlled, No redness/swelling at site. Pressure ha1 dressing applied. Administered Medications: 17:20 Drug: cloNIDine PO 0.2 mg Route: PO; eh3 18:49 Follow up: BP 160 / 60; Response: Blood pressure is lowered eh3 Medication: 19:34 VIS not applicable for this client. eh3 Outcome: 19:38 Discharge ordered by MD. cp 20:04 Discharged to home ambulatory, with family. ha1 20:04 Condition: stable 20:04 Discharge instructions given to patient, family, Instructed on discharge instructions, follow up and referral plans. medication usage, Demonstrated understanding of instructions, follow-up care, medications, Prescriptions given X 1. 20:04 Patient left the ED. ha1 Signatures: Dispatcher [employer] Genie Paula Audri, RN RN aa5 [place] PA PA cp Chelle Frost, CONCETTA RN 3 Yaima Melgar RN RN ha1 Corrections: (The following items were deleted from the chart) 16:03 15:53 Acuity: CIARA 3 aa5 aa5
[2022-12-18 19:45] LABS: Protime INR 0.98
[2022-12-18 20:10] VITALS: TEMP 98.2
[2022-12-18 20:14] VITALS: O2SAT 98
[2022-12-18 20:19] VITALS: BP 188/73
== END 2022-12-18 20:04 | disposition home or self-care (01) ==
LOC: ER 15:26
DX: I11.9 Hypertensive heart disease without heart failure (principal); E11.65 Type 2 diabetes mellitus with hyperglycemia; I10 Essential (primary) hypertension; Z88.5 Allergy status to narcotic agent; Z88.8 Allergy status to other drugs, medicaments and biological substances
CPT/HCPCS: 36415; 70450; 71045; 80048; 80076; 81001; 83735; 83880; 84484; 85025; 85610; 99284

== ENCOUNTER 2023-04-29 08:49 | Emergency (ER) | payer OTHER ==
--- OUTSIDE RECORDS SUMMARY | 2023-04-29 08:58 | XMS REPORT | Continuity of Care Document ---
:1940 Author Organization [facility] t Address [address] [place] [address] Care Team Providers Name Role Phone JAIME AGUIRRE Attending Clinician Unavailable CHECO HERCULES Attending Clinician Unavailable KATHRIN PRESCOTT Attending Clinician Unavailable Slade Ryan Attending Clinician JAIME AGUIRRE Admitting Clinician Unavailable CHECO HERCULES Admitting Clinician Unavailable KATHRIN PRESCOTT Admitting Clinician Unavailable AYANNA CRAWFORD Admitting Clinician Unavailable ANGLE MCKEON Admitting Clinician Unavailable Payers Payer Name Policy Type Policy Number Effective Date Expiration Date S natalya UNITED MEDICARE [id number] 2019 O 00:00:00 CDC REVIEW [id number] 2020 00:00:00 Problems Condition Condition Condition Status Onset Resolution Last Treating Co mments Source Name Details Category Date Date Treatment Clinician Date Bright red Bright red Disease Active 2019- [facility] blood per blood per 05[facility]14 [facility] rectum rectum 00:00: Medical 00 [place] Colitis Colitis Disease Active 2019-[address] [facility] [place] Meningioma Meningioma Disease Recurre [facility] 00 [place] Dehydratio Dehydratio Disease Active 2019-[address] [facility] n [facility]24 [facility] Medical [place] Elevated Elevated Disease Active 2019- [facility] [...] moria urinary urinary 13:10:14 l tract tract Mcwilliams infection infection (disorder) (disorder) Active Problem 03/18/2019 [facility] 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 13:10:14 l (disorder) arteritis Her amaya (disorder) Active Problem 03/18/2019 [facility] Headache Headache Problem Active 2019-03-18 [facility] (finding) (finding) 13:10:14 l Active [facility] Problem 03/18/2019 [facility] 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 13:10:14 l (finding) (finding) Mukul recinos Active Problem 03/18/2019 [facility] Neuropathy Problem Active 2019-03-18 M emoria (disorder) Neuropathy 13:10:14 l (disorder) Milan n Active Problem [...] Date Stop Date Source Natural brother Cancer [facility] Natural father Cancer [facility] Natural mother Diabetes [facility] Natural mother Heart disease [facility] Natural sister Breast cancer [facility] Natural sister Cancer [facility] Social History Social Habit Start Date [...] Medical Center Tobacco use and 2020-04-02 2020-04-02 Smokeless tobacco [facility] exposure [facility] 00:00:00 non-user Medical Center Social History 2018-06-12 2018-06-12 [facility] annelise 14:22:19 14:22:19 Sex Ass[birth year] At [birth year] [facility] 00:00:00 00:00:00 Medical Center Smoking Status Start Date Stop Date Source Never smoked tobacco [facility] Medications Ordered Filled Start Stop Current Ordering [...] Me dical 0.05 % 43 as needed. [facility] ophthalmic emulsion alpha 2020-0 Yes 1{tbl} QD Take [address] [facility] [address] lipoic acid 9-28 tablet by Vikram es 600 mg Cap 21:06: mouth Medica l 43 daily. [place] calcium 2020-0 Yes 1{tbl} QD Take [address] [facility] carbonate-v 9-28 tablet by Vikram es itamin D3 21:06: mouth Medical (CALCIUM- 43 daily. [place] TAMIN D) 500 mg(1,250mg) -200 unit per tablet aspirin 81 2020-0 Yes 1{tbl} QD Take [address] [facility] MG EC 9-28 tablet by [facility] tablet 21:06: mouth Medical 43 daily. [place] nitroglycer 2020-0 Yes 1{tbl} Place 1 C [...] D3 21:06: mouth Medical (CALCIUM- 43 daily. [place] TAMIN D) 500 mg(1,250mg) -200 unit per tablet aspirin 81 2020-0 Yes 1{tbl} QD Take [address] MG EC 9-28 tablet by [facility] tablet 21:06: mouth Medical 43 daily. [place] nitroglycer 2020-0 Yes 1{tbl} Place 1 C [...] Me dical 0.05 % 43 as needed. [place] ophthalmic emulsion alpha 2020-0 Yes 1{tbl} QD Take [address] lipoic acid 9-28 tablet by Vikram es 600 mg Cap 21:06: mouth Medica l 43 daily. Center calcium 2020-0 Yes 1{tbl} QD Take [address] carbonate-v 9-28 tablet by Vikram es itamin D3 21:06: mouth Medical (CALCIUM- 43 daily. [place] TAMIN D) 500 mg(1,250mg) -200 unit per tablet insulin 2020-0 Yes 6U QD Inject [address] glargine 9-07 Units [facility] (LANTUS) 00:00: subcutaneo Med ical 100 unit/mL 00 usly Center injection nightly Use as directed2- 5 units depending on blood sugar . needles, 2020-0 Yes 1 box by [employer] S t insulin 9-07 M[facility]ane [facility] disposable [...] . needles, 2020-0 Yes 1 box by [employer] S t insulin 9-07 [facility] disposable 00:00: ous route Me dical (INSULIN 00 4 (four) Center PEN times NEEDLES) daily Ndle before meals and nightly. levothyroxi 2020-0 Yes 1{tbl} QD Take [address] ne 3-20 tablet by [facility] (SYNTHROID, 00:00: mouth Medic al LEVOTHROID) 00 daily. [facility] 75 MCG tablet losartan 2020-0 Yes 1{tbl} QD Take 1 [facility] (COZAAR) 3-20 tablet [facility] 100 MG 00:00: mouth Medical tablet 00 daily. [place] levothyroxi 2020-0 Yes 1{tbl} QD Take [address] ne 3-20 [facility] by [facility] (SYNTHROID, 00:00: mouth Medic al LEVOTHROID) 00 daily. [facility] 75 MCG tablet losartan 2020-0 Yes 1{tbl} QD Take 1 [facility] t (COZAAR) 3-20 tablet by [facility] 100 MG 00:00: mouth Medical tablet 00 daily. [place] levothyroxi 2020-0 Yes 1{tbl} QD Take [address] ne 3-20 tablet by [facility] (SYNTHROID, 00:00: mouth Medic al LEVOTHROID) 00 daily. [place] 75 MCG tablet losartan Yes 1{tbl} QD Take 1 [facility] t (COZAAR) 3-20 [facility] 100 MG 00:00: mouth Medical tablet 00 daily. [place] diltiazem Yes 1{tbl} QD Take 1 [facility] [...] po Juanjo capsule 00 qhs, 0 Refill(s) nortriptyli Yes See Memori a ne 10 mg 5-28 Instructio l oral 15:18: ns, 3 po Mcwilliams capsule 00 qhs, 0 Refill(s) nortriptyli Yes See Memori a ne 10 mg 5-28 Instructio l oral 15:18: ns, 3 po Mcwilliams capsule 00 qhs, 0 Refill(s) Nortriptyli Yes PO, Memori a ne 5-28 Bedtime, 0 l 15:03: Refill(s) Juanjo Nortriptyli Yes PO, Memori a ne 5-28 Bedtime, 0 l 15:03: Refill(s) Juanjo Nortriptyli Yes PO, Memori a ne 5-28 Bedtime, 0 l 15:03: Refill(s) Juanjo 00 HR Yes 250 mg = 1 Memori a Divalproex 5-01 tab, PO, l Sodium 250 15:11: Bedtime, # H ermann MG Extended 00 30 tab, 3 Release Refill(s), Tablet Pharmacy: [[facility]] [facility] Yes 250 mg = 1 Memori a Divalproex 5-01 tab, PO, l Sodium 250 15:11: Bedtime, # H ermann MG Extended 30 tab, 3 Release Refill(s), Tablet Pharmacy: [[facility]] [facility] Yes 250 mg = 1 Memori a Divalproex 5-01 tab, PO, l Sodium 250 15:11: Bedtime, # H ermann MG Extended 30 tab, 3 Release Refill(s), Tablet [facility] tab, Mem oria 5-01 PO, 0 l 14:28: Refill(s) butalbital Yes = 1 tab, Mem oria 5-01 PO, 0 l 14:28: Refill(s) butalbital Yes = 1 tab, Mem oria 5-01 PO, 0 l 14:28: Refill(s) Mcwilliams 00 Memantine Yes 10 mg = 2 Mem oria hydrochlori 1-11 tab, PO, l de 5 MG 17:46: BID, # 120 Herm jorje Oral Tablet 00 tab, 3 [Namenda] Refill(s), Pharmacy: [facility] Memantine Yes 10 mg = 2 Mem oria hydrochlori 1-11 tab, PO, l de 5 MG 17:46: BID, # 120 Herm jorje Oral Tablet 00 tab, 3 [Namenda] Refill(s), Pharmacy: [facility] Memantine Yes 10 mg = 2 Mem oria hydrochlori 1-11 tab, PO, l de 5 MG 17:46: BID, # 120 Herm jorje Oral Tablet 00 tab, 3 [Namenda] Refill(s), Pharmacy: [facility] 0.9 ML Yes 162 mg, Memoria tocilizumab 1-11 SUB-Q, 0 l 180 MG/ML 17:37: Refill(s) [facility] Prefilled 00 Syringe [Actemra] 0.9 ML Yes 162 mg, Memoria tocilizumab 1-11 SUB-Q, 0 l 180 MG/ML 17:37: Refill(s) Her amaya Prefilled 00 Syringe [Actemra] 0.9 ML Yes 162 mg, Memoria tocilizumab -11 SUB-Q, 0 l 180 MG/ML 17:37: Refill(s) Her amaya Prefilled 00 Syringe [Actemra] topiramate 2017-08 No 25 mg = 1 Me moria 25 MG Oral 1-30 tab, PO, l Tablet 16:56: BID, # 60 Milan n [Topamax] 52 tab, 3 Refill(s), Pharmacy: [facility] topiramate 2017-08 No 25 mg = 1 Me moria 25 MG Oral 1-30 tab, PO, l Tablet 16:56: BID, # 60 Milan n [Topamax] 52 tab, 3 Refill(s), Pharmacy: [facility] topiramate 2017-08 No 25 mg = 1 Me moria 25 MG Oral 1-30 tab, PO, l Tablet 16:56: BID, # 60 Milan n [Topamax] 52 tab, 3 Refill(s), Pharmacy: [facility] Insulin 2017-08 Yes See Memoria Glargine 1-30 Instructio l 100 UNT/ML 16:33: ns, SUB-Q He rmann Injectable 00 PRN, 0 Solution Refill(s) [Lantus] Tramadol 2017-08 Yes 50 mg, PO, Mem oria 1-30 PRN, PRN l 16:33: Pain Mcwilliams Insulin 2017-08 Yes See Memoria Glargine 1-30 Instructio l 100 UNT/ML 16:33: ns, SUB-Q He rmann Injectable 00 PRN, 0 Solution Refill(s) [Lantus] Tramadol 2017-08 Yes 50 mg, PO, Mem oria 1-30 PRN, PRN l 16:33: Pain Juanjo 00 Insulin 2017-08 Yes See Memoria Glargine 1-30 Instructio l 100 UNT/ML 16:33: ns, SUB-Q He rmann Injectable 00 PRN, 0 Solution Refill(s) [Lantus] Tramadol 2017-08 Yes 50 mg, PO, Mem oria 1-30 PRN, PRN l 16:33: Pain Juanjo 00 topiramate 2017-08 No 25 mg = 1 Me moria 25 MG Oral 0-26 tab, PO, l Tablet 15:13: Bedtime, # Abigail nn [Topamax] 00 30 tab, 3 Refill(s), Pharmacy: [facility] topiramate 2017-08 No 25 mg = 1 Me moria 25 MG Oral 0-26 tab, PO, l Tablet 15:13: Bedtime, # Abigail nn [Topamax] 30 tab, 3 Refill(s), Pharmacy: [facility] topiramate 2017-08 No 25 mg = 1 Me moria 25 MG Oral 0-26 tab, PO, l Tablet 15:13: Bedtime, # Abigail nn [Topamax] 00 30 tab, 3 Refill(s), Pharmacy: [facility] Famotidine 2017-08 Yes 40 mg = 2 [...] joy 0-26 PO, Daily, l 13:58: 0 Mcwilliams 00 Refill(s) Cranberry 2017-08 Yes 4,200 mg Cresencio joy 0-26 =, PO, l 13:58: Daily, 0 Juanjo 00 Refill(s) Vitamin D3 2017-08 Yes 1, PO, Memor ia 0-26 Daily, 0 l 13:58: Refill(s) Lyrica 2017-08 Yes [...] emoria 0-26 PRN, 0 l 13:58: Refill(s) Prednisone 2017-08 Yes 15 mg, PO, M emoria 0-26 Daily, l 13:58: Quantity sufficient , 0 Refill(s) sertraline Yes 1{tbl} QD Take 1 [...] 66.996 kg Height 2019-01-12 14:51:00 149.86 cm [facility] BMI Calculated 2019-01-12 14:51:00 Memori al Juanjo Weight 2019-01-12 14:51:00 [facility] Juanjo Heart Rate 2019-01-12 14:51:00 [facility] Respitory Rate 2019-01-12 14:51:00 Memori al Juanjo Systolic (mm Hg) 2019-01-12 14:51:00 Cresencio rial Juanjo Diastolic (mm Hg) 2019-01-12 14:51:00 Mem orial Juanjo BMI Calculated 2018-12-16 14:12:00 Memori al [place]ams Weight 2018-12-16 14:12:00 [facility] Height 2018-12-16 14:12:00 152.4 cm [facility] Juanjo Respitory Rate 2018-12-16 14:12:00 Memori al [place]ams Heart Rate 2018-12-16 14:12:00 [facility] Systolic (mm Hg) 2018-12-16 14:12:00 Cresencio rial Juanjo Diastolic (mm Hg) 2018-12-16 14:12:00 Mem orial Mcwilliams BMI Calculated 2018-08-28 17:21:00 Memori al [place]illiams Weight 2018-08-28 17:21:00 [facility] Juanjo Height 2018-08-28 17:21:00 152.4 cm [facility] Juanjo Respitory Rate 2018-08-28 17:21:00 Memori al [place]williams Systolic (mm Hg) 2018-08-28 17:21:00 Cresencio rial Juanjo Diastolic (mm Hg) 2018-08-28 17:21:00 Mem orial Mcwilliams Heart Rate 2018-08-28 17:21:00 [facility] BMI Calculated 2018-07-17 16:27:00 Memori al [place]ams Weight 2018-07-17 16:27:00 [facility] Juanjo Height 2018-07-17 16:27:00 149.86 cm [facility] Juanjo Systolic (mm Hg) 2018-07-17 16:27:00 Cresencio rial Juanjo Diastolic (mm Hg) 2018-07-17 16:27:00 Mem orial Juanjo Heart Rate 2018-07-17 16:27:00 [facility] BMI Calculated 2018-06-12 13:52:00 Kar Figueroa Weight 2018-06-12 13:52:00 [facility] Height 2018-06-12 13:52:00 152.4 cm [facility] Heart Rate 2018-06-12 13:52[facility]00 [facility] 2018-06-12 13:52:00 Cresencio Geiger Diastolic (mm Hg) 2018-06-12 13:52:00 Mem orial Mcwilliams Procedures Procedure Date / Time Performed Performing Clinician [facility] e Laser eye surgery [facility] nn Nephrectomy [facility] Temporal artery biopsy [facility] Plan of Care Planned Activity Planned Date Details Comments Source Future Scheduled 2023-04-[address] [facility] Test 00:00:00 (Season Ended) [code = Medic al Center INFLUENZA VACCINE (Season Ended)] Future Scheduled 2023-04-18 Influenza Vaccine (#1) [facility] 00:00:00 [code = Influenza Medical Ce nter Vaccine (#1)] Future Scheduled 2022-08-[address] [facility] Test 00:00:00 (12+) [code = Medical Center DEPRESSION SCREENING (12+)] Future Scheduled 2022-08-18 FALLS RISK SCREENING [facility] Test 00:00:00 [code = FALLS RISK Medical C enter SCREENING] Future Scheduled 2022-08-[address] [...] 00:00:00 protein (procedure) Medical Center [code = 180101650] Future Scheduled 2021-01-20 Urine screening for [facility] Test 00:00:00 protein (procedure) Medical Center [code = 951646477] Future Scheduled 2021-01-20 Urine screening for [facility] Test 00:00:00 protein (procedure) Medical Center [code = 604871544] Future Scheduled 2020-11-[address] [facility] Test 00:00:00 measurement Medical Center (procedure) [code = 13940310] Future Scheduled 2020-11-[address] [facility] Test 00:00:00 measurement Medical Center (procedure) [code = 93646979] Future Scheduled 2020-11-[address] [facility] Test 00:00:00 measurement Medical Center (procedure) [code = 10539075] Future Scheduled 2020-07-[address] [...] 00:00:00 examination Medical Center (regime/therapy) [code = 176866401] Future Scheduled [address]AB[address] EYE EXAM [facility] 00:00:00 [code = DIABETIC EYE Medical Center EXAM] Future Scheduled [address] [facility] Test 00:00:00 examination Medical Center (regime/therapy) [code = 032406826] Future Scheduled 1950 [address]YE EXAM [facility] 00:00:00 [code = DIABETIC EYE Medical Center EXAM] Future Scheduled [address] [facility] Test 00:00:00 examination Medical Center (regime/therapy) [code = 119382848] Future Scheduled 1946 PNEUMOCOCCAL 65+ YRS CHI [...] DXA [facility] 00:00:00 SCAN] [facility] Center Future Scheduled 1940 DXA SCAN [code = DXA [facility] Test 00:00:00 SCAN] [facility] Center Future Scheduled 1940 DXA SCAN [code = DXA [facility] Test 00:00:00 SCAN] [facility] Center Encounters Start End Encounter Admission Attending Care Care Encounter Source Date/Time Date/Time Type Type Clinicians Facility Department ID 2021-05-23 Inpatient ER [facility] Gastro [id number] [facility] 08:28:59 [facility] 2021-05-23 Inpatient ER [facility] [id number] [facility] 07:11:14 , [facility]CO Med 2020-04-21 Inpatient ER [facility] Surgery [id number] [facility] 17:35:00 KATHRIN 2020-03-31 Inpatient ER [facility] Inter Rad [id number] [facility] 07:46:00 [facility] 2019-01-12 2019-01-13 Outpatient nullFlavo MNA [id number] Memoria 14:30:00 04:59:59 r Neurology 05 l [facility] 2019-01-12 2019-01-13 Outpatient nullFlavo MNA [id number] Memoria 14:30:00 04:59:59 r Neurology 05 l [facility] 2019-01-12 2019-01-12 [facility] [id number] 09:30:00 23:59:59 Slade Daily Bell 2019-01-12 2019-01-12 Outpatient MHIE MHIE [id number] Memoria 09:30:00 09:30:00 05 ashley Geiger 2018-12-22 2018-12-24 Phone nullFlavo MNA [id number] Memoria 20:13:43 04:59:59 Message r Neurology 01 ashley Geiger 2018-12-22 2018-12-24 Phone nullFlavo MNA [id number] Memoria 20:13:43 04:59:59 Message r Neurology 01 ashley Geiger 2018-12-22 2018-12-23 Outpatient MHMISCHER MHMISCHER [id number] 15:13:43 23:59:59 2018-12-16 2018-12-17 Outpatient nullFlavo MNA [id number] Memoria 14:00:00 04:59:59 r Neurology 04 ashley [place] Mcwilliams 2018-12-16 2018-12-17 Outpatient nullFlavo MNA [id number] Memoria 14:00:00 04:59:59 r Neurology 04 ashley [place] Juanjo 2018-12-16 2018-12-16 Outpatient [facility] M[facility]ER [id number] 09:00:00 23:59:59 Sladejuan jose Bell 2018-12-16 2018-12-16 Outpatient MHIE MHIE [id number] Memoria 09:00:00 09:00:00 04 ashley Juanjo 2018-10-30 2018-10-30 Outpatient MHIE MHIE [id number] Memoria 10:00:00 10:00:00 03 ashley Juanjo 2018-10-30 2018-10-30 Outpatient MHIE MHIE [id number] Memoria 10:00:00 10:00:00 03 ashley Juanjo 2018-08-28 2018-08-29 Outpatient nullFlavo MNA [id number] Memoria 16:45:00 05:59:59 r Neurology 02 ashley [place] Juanjo 2018-08-28 2018-08-29 Outpatient nullFlavo MNA [id number] Memoria 16:45:00 05:59:59 r Neurology 02 l Wendy Geiger 2018-08-28 2018-08-28 Outpatient Shelby MHMISCHER MHMISCHER [id number] 10:45:00 23:59:59 Slade 02 Ray 2018-08-28 2018-08-28 Outpatient MHIE MHIE [id number] Memoria 10:45:00 10:45:00 02 ashley Geiger 2018-08-05 2018-08-07 Outside nullFlavo MNA [id number] Memoria 21:20:00 05:59:59 Medical r Neurology 00 l Records Wendy Geiger 2018-08-05 2018-08-07 Outside nullFlavo MNA [id number] Memoria 21:20:00 05:59:59 Medical r Neurology 00 l Records Wendy Geiger 2018-08-05 2018-08-06 Outpatient MHMISCHER MHMISCHER [id number] 15:20:00 23:59:59 00 2018-07-17 2018-07-18 Outpatient nullFlavo MNA [id number] Memoria 16:15:00 05:59:59 r Neurology 01 l Wendy Geiger 2018-07-17 2018-07-18 Outpatient nullFlavo MNA [id number] Memoria 16:15:00 05:59:59 r Neurology 01 l Wendy Geiger 2018-07-17 2018-07-17 Outpatient Shelby MHMISCHER MHMISCHER [id number] 10:15:00 23:59:59 Slade Ray 2018-07-17 2018-07-17 Outpatient MHIE JOANIE [id number] Memoria 10:15:00 10:15:00 01 ashley Geiger 2018-06-12 2018-06-13 Outpatient nullFlavo MNA [id number] Memoria 14:00:00 04:59:59 r Neurology 00 l Wendy Geiger 2018-06-12 2018-06-13 Outpatient nullFlavo MNA [id number] Memoria 14:00:00 04:59:59 r Neurology 00 l Wendy Geiger 2018-06-12 2018-06-12 Outpatient JOAN RyanMISCHER MHMISCHER [id number] 09:00:00 23:59:59 Slade 00 Ray 2018-06-12 2018-06-12 Outpatient MHIE MHIE [id number] Memoria 09:00:00 09:00:00 00 l Juanjo Results Test Description Test Time Test Comments Results Result Comments Source POCT-GLUCOSE METER 2020-05-15 12:07:00 Test Item Value Reference Range Interpretation Comme nts POC-GLUCOSE METER (BEAKER) 145 mg/dL 70-110 H : TESTED AT [facility] [address] (test code = 1538) [place], [address]: Motorcycle Riding Instructor/Techni sebastian ID = [id number] for JAYSON OVIEDO SARS-COV2/RT-PCR ([facility])2020-05-15 10:07:00 Test Item Value Reference Range Interpretation Comments SARS-COV2/RT-PCR (test Negative Not Detected, Negative, code = 0658346) See external report for linked test SARS-COV-2 PERFORMING LAB [facility] ROLY (test code = 8589057) Negative result for this test determines that [...] of the Act.Fact Sheet for Healthcare Prov iders:https://www.[employer]/sites/default/files/product/documents/Fact_Sheet_HC _Pjyznapyb_Fkez_OEQA-LrH-7.pdfFact Sheet for Healthcare Patients:https://www.[employer]/sites/default/files/product/docume nts/Lhht_Yhxgj_Hyahqnfb_Uumc_XAPK-WdK-7.pdfPerforming Laboratory:[facility], [place] [id number] METER 2020-05-15 07:57:00 Test Item Value Reference Range Interpretation Comments POC-GLUCOSE METER 145 mg/dL 70-110 H : TESTED A T [facility] [address] (BEAKER) (test code = JEANE Noriega [facility], 1538) [address]: Motorcycle Riding Instructor/Techni sebastian ID = [id number] for RUDDY STUBBS BASIC METABOLIC [id number] 06:06:00 Test Item Value Reference Range Interpretation [...] S NOT APPLICABLE FOR DIALYSIS PATIEN TS. Motorcycle Riding Instructor ID - PIAYA LSpecimen slightly ictericCBC (HEMOGRAM [...] WBC 0-0 (test code = 413) POCT-GLUCOSE [id number] 21:59:00 Test Item Value Reference Range Interpretation Comments POC-GLUCOSE METER 129 mg/dL 70-110 H : TESTED A T [facility] 67[address] (BEAKER) (test code = [facility], 153) [address]: Motorcycle Riding Instructor/Techni sebastian ID = [id number] for PA QAMAR, RUBINEE GALE POCT-GLUCOSE [id number] 21:20:00 Test Item Value Reference Range Interpretation Comments POC-GLUCOSE METER 68 mg/dL 70-110 L : TESTED A T [facility] 6720 (BEAKER) (test code = [facility], 153) [address]: Motorcycle Riding Instructor/Techni sebastian ID = [id number] for PASI ON, RUBINEE GALE HEMOGLOBIN AND [id number] 16:58:00 Test Item Value Reference Range Interpretation Comments HEMOGLOBIN (BEAKER) (test code = 12.1 GM/DL 11.2-15.7 410) HEMATOCRIT (BEAKER) (test code = 36.7 % 34.1-44.9 411) Motorcycle Riding Instructor ID - [id number] 10:03:00 Test Item Value Reference Range Interpretation Comments HEMOGLOBIN A1C (BEAKER) (test code = 8.4 % 4.3-6.1 H 368) HEMOGLOBIN AND [id number] 09:18:00 Test Item Value Reference Range Interpretation Comments HEMOGLOBIN (BEAKER) (test code = 12.8 GM/DL 11.2-15.7 410) HEMATOCRIT (BEAKER) (test code = 38.7 % 34.1-44.9 411) Motorcycle Riding Instructor ID - [id number] AND PARASITE [id number] 12:20:00 Test Item Value Reference Range Interpretation [...] (test seen seen code = 248) BLOOD [id number] 08:00:00 Test Item Value Reference Range Interpretation Comments CULTURE (BEAKER) (test No growth in 5 days code = 1095) BLOOD [id number] 08:00:00 Test Item Value Reference Range Interpretation Comments CULTURE (BEAKER) (test No growth in 5 days code = 1095) STOOL CULTURE + SHIGA [id number] 11:02:00 Test Item Value Reference Range Interpretation Comments CULTURE (BEAKER) No Salmonella, Shigella (test code = 1095) or Campylobacter isolated POCT-GLUCOSE [id number] 12:51:00 Test Item Value Reference Range Interpretation Comments POC-GLUCOSE METER 255 mg/dL 70-110 H : Notified RN/MD: (ENRICO) (test code = TESTED AT [place] [id number]) SADAF [facility], [address]: Motorcycle Riding Instructor/Techni sebastian ID = [id number] for AN KAITLIN POLLARD POCT-GLUCOSE [id number] 08:22:00 Test Item Value Reference Range Interpretation Comments POC-GLUCOSE METER 197 mg/dL 70-110 H : TESTED A T [facility] 6720 (ENRICO) (test code = [facility], 153) [address]: Motorcycle Riding Instructor/Techni sebastian ID = [id number] for KAITLIN DURANT BASIC METABOLIC [id number] 05:46:00 Test Item Value Reference Range Interpretation [...] S NOT APPLICABLE FOR DIALYSIS PATIEN TS. Motorcycle Riding Instructor ID - EVELIA Leaimedorys slightly ictericPOCT-GLUCOSE [id number] 22:22:00 Test Item Value Reference Range Interpretation Comments POC-GLUCOSE METER 323 mg/dL 70-110 H : TESTED A T [facility] 6720 (BEAKER) (test code = [facility], 153) [address]: Motorcycle Riding Instructor/Techni sebastian ID = [id number] for Vane pablitoTai bland POCT-GLUCOSE [id number] 17:46:00 Test Item Value Reference Range Interpretation Comments POC-GLUCOSE METER 245 mg/dL 70-110 H : TESTED A T [facility] 6720 (BEAKER) (test code = [facility], 153) [address]: Motorcycle Riding Instructor/Techni sebastian ID = [id number] for TAYLOR KEANE POCT-GLUCOSE [id number] 12:12:00 Test Item Value Reference Range Interpretation Comments POC-GLUCOSE METER 317 mg/dL 70-110 H : TESTED A T [facility] 6720 (BEAKER) (test code = JEANE Noriega [facility], 1538) [address]: Motorcycle Riding Instructor/Techni sebastian ID = [id number] for TAYLOR KEANE SHIGA TOXIN [id number] 10:32:00 Test Item Value Reference Range Interpretation Comments SHIGA TOXIN 1 (BEAKER) (test Not detected Not detected code = 2177) SHIGA TOXIN 2 (BEAKER) (test Not detected Not detected code = 2179) STOOL PATH [id number] 10:15:00 Test Item Value Reference Range Interpretation Comments PATHOGEN EXAM CHARGED (BEAKER) (test Done code = 2381) POCT-GLUCOSE [id number] 08:57:00 Test Item Value Reference Range Interpretation Comments POC-GLUCOSE METER 205 mg/dL 70-110 H : TESTED A T [facility] 6720 (BEAKER) (test code = JEANE Noriega [facility], 1538) 607[address]: Motorcycle Riding Instructor/Techni sebastian ID = [id number] for TAYLOR KEANE HEMOGLOBIN [id number] 08:19:00 Test Item Value Reference Range Interpretation Comments HEMOGLOBIN A1C (BEAKER) (test code = 8.4 % 4.3-6.1 H 368) BASIC METABOLIC [id number] 07:56:00 Test Item Value Reference Range Interpretation [...] S NOT APPLICABLE FOR DIALYSIS PATIEN TS. Motorcycle Riding Instructor ID - HEIDIAYA LSpecimen slightly ictericPOCT-GLUCOSE [id number] 22:55:00 Test Item Value Reference Range Interpretation Comments POC-GLUCOSE METER 229 mg/dL 70-110 H : TESTED A T [facility] 6720 (BEAKER) (test code = [facility], 153) 472[address]: Motorcycle Riding Instructor/Techni sebastian ID = [id number] for Karla Jackson POCT-GLUCOSE [id number] 17:45:00 Test Item Value Reference Range Interpretation Comments POC-GLUCOSE METER 306 mg/dL 70-110 H : TESTED A T [facility] 6720 (BEAKER) (test code = [facility], 1538) 26616: Motorcycle Riding Instructor/Techni sebastian ID = [id number] for DI EPSTEIN POCT-GLUCOSE [id number] 11:59:00 Test Item Value Reference Range Interpretation Comments POC-GLUCOSE METER 150 mg/dL 70-110 H : TESTED A T [facility] 6720 (BEAKER) (test code = [facility], 153) 88513: Motorcycle Riding Instructor/Techni sebastian ID = [id number] for DI EPSTEIN [id number] 10:18:00 Test Item Value Reference Range Interpretation Comments POTASSIUM (BEAKER) 4.9 meq/L 3.5-5.1 Specimen slightly (test code = 379) hemolyzed Motorcycle Riding Instructor ID - EVELIA MPOCT-GLUCOSE [id number] 08:04:00 Test Item Value Reference Range Interpretation Comments POC-GLUCOSE METER 156 mg/dL 70-110 H : TESTED A T [facility] 6720 (BEAKER) (test code = [facility], [facility]) 90998: Motorcycle Riding Instructor/Techni sebastian ID = [id number] for DI EPSTEIN BASIC METABOLIC [id number] 05:51:00 Test Item Value Reference Range Interpretation [...] S NOT APPLICABLE FOR DIALYSIS PATIEN TS. Motorcycle Riding Instructor ID - PIAYA LSpecimen slightly ictericC. DIFFICILE GDH [id number] 05:03:00 Test Item Value Reference Range Interpretation Comments CDT TOXIN (test code Negative Negative = [id number]) CDT GDH ANTIGEN Positive Negative A C. difficile present but (test code = toxin not detec dominic. [id number]) Indicates colon ization with non-toxige faith strain [...] of kit performance was done by the [facility] MicrobiologyLab prior to clinical use.FECAL [id number] 00:34:00 Test Item Value Reference Range Interpretation Comments FECAL LEUKOCYTES No fecal leukocytes No fecal leukocytes (BEAKER) (test code = seen seen 992) POCT-GLUCOSE [id number] 22:14:00 Test Item Value Reference Range Interpretation Comments POC-GLUCOSE METER 224 mg/dL 70-110 H : TESTED A T [facility] ([employer]) (test code = [place]ANE [place], 1538) 266[address]: Motorcycle Riding Instructor/Techni sebastian ID = [id number] for SHAHZAD BRUCE POCT-GLUCOSE [id number] 14:51:00 Test Item Value Reference Range Interpretation Comments POC-GLUCOSE METER 120 mg/dL 70-110 H : TESTED A T [facility] 6720 ([employer]) (test code = JEANE [place], 1538) 915[address]: Motorcycle Riding Instructor/Techni sebastian ID = [id number] for MIYA CAVAZOS BASIC METABOLIC [id number] 11:35:00 Test Item Value Reference Range Interpretation [...] S NOT APPLICABLE FOR DIALYSIS PATIEN TS. Motorcycle Riding Instructor ID - EVELIA MSpecimen slightly [id number] 11:32:00 Test Item Value Reference Range Interpretation Comments MAGNESIUM (BEAKER) (test code = 1.9 mg/dL 1.6-2.6 627) Motorcycle Riding Instructor ID - EVELIA EPATIC FUNCTION [id number] 11:32:00 Test Item Value Reference Range Interpretation [...] code = 107 U/L 6-55 H 347) Motorcycle Riding Instructor TIARA Ramon slightly ictericPROTHROMBIN [id number] 07:18:00 Test Item Value Reference Range Interpretation [...] mechanical heart valves.CBC W/PLT COUNT & AUTO [id number] 07:11:00 Test Item Value Reference Range Interpretation [...] PERCENT (BEAKER) (test code = 2801) BLOOD [id number] 23:00:00 Test Item Value Reference Range Interpretation Comments CULTURE (BEAKER) (test No growth in 5 days code = 1095) BLOOD [id number] 23:00:00 Test Item Value Reference Range Interpretation Comments CULTURE (BEAKER) (test No growth in 5 days code = 1095) PROTEIN ELECTROPHORESIS, [id number] 13:55:00 Test Item Value Reference Range Interpretation [...] (BEAKER) (test code = mild acute inflammation 6843) coupled with urine protein loss and/or protein-losing enteropathy. No monoclonal bands detected. [id number] Yudith Emanuel MD (BEAKER) (test code = (electronic signature) 2557) PROTEIN TOTAL SERUM, 5.0 gm/dL 6.0-8.3 L SPEP (BEAKER) (test code = 8900) Motorcycle Riding Instructor ID - EVELIA MHEPATITIS PANEL, [id number] 17:11:00 Test Item Value Reference Range Interpretation Comments HEPATITIS A IGM ANTIBODY (BEAKER) Nonreactive Nonreactive (test code = 498) HEPATITIS B CORE IGM ANTIBODY Nonreactive Nonreactive (BEAKER) (test code = 645) HEPATITIS C ANTIBODY (BEAKER) Nonreactive Nonreactive (test code = 367) HEPATITIS B SURFACE ANTIGEN (2) Nonreactive Nonreactive (BEAKER) (test code = 2585) Motorcycle Riding Instructor ID - DBPOCT-GLUCOSE [id number] 16:42:00 Test Item Value Reference Range Interpretation Comments POC-GLUCOSE METER 236 mg/dL 70-110 H : TESTED A T [facility] 6720 (BEAKER) (test code = [facility], 1538) 90778: Motorcycle Riding Instructor/Techni sebastian ID = [id number] for Giulia Wade POCT-GLUCOSE [id number] 12:36:00 Test Item Value Reference Range Interpretation Comments POC-GLUCOSE METER 276 mg/dL 70-110 H : TESTED A T [facility] 6720 (BEAKER) (test code = [facility], 1538) 37981: Motorcycle Riding Instructor/Techni sebastian ID = [id number] for Giulia Wade HEMOGLOBIN [id number] 12:07:00 Test Item Value Reference Range Interpretation Comments HEMOGLOBIN A1C (BEAKER) (test code = 8.0 % 4.3-6.1 H 368) COMPREHENSIVE METABOLIC [id number] 11:48:00 Test Item Value Reference Range Interpretation [...] S NOT APPLICABLE FOR DIALYSIS PATIEN TS. Motorcycle Riding Instructor ID - SUSI MSpecimen moderately ictericLIPID [id number] 11:48:00 Test Item Value Reference Range Interpretation [...] Borderline 130-159 High 160-189 Very High >=190 Motorcycle Riding Instructor ID - SUSI MSpecimen moderately ictericTSH/FREE T4 IF [id number] 10:29:00 Test Item Value Reference Range Interpretation Comments THYROID STIMULATING HORMONE 3.805 uIU/mL 0.350-4.940 (BEAKER) (test code = 772) Motorcycle Riding Instructor ID - [id number] 09:30:00 Test Item Value Reference Range Interpretation Comments FERRITIN (BEAKER) (test code = 292.76 ng/mL 5.00-275.00 H 361) Motorcycle Riding Instructor ID - AALUCRETIAIDVITAMIN B12 AND [id number] 09:30:00 Test Item Value Reference Range Interpretation Comments VITAMIN B12 (BEAKER) (test code = 1155 pg/mL 213-816 H 774) FOLATE (BEAKER) (test code = 362) 8.50 ng/mL >=7.00 Motorcycle Riding Instructor ID - PETERSONPOCT-GLUCOSE [id number] 08:10:00 Test Item Value Reference Range Interpretation Comments POC-GLUCOSE METER 197 mg/dL 70-110 H : TESTED A T [facility] 6720 (BEAKER) (test code = [place]ANE [place], 1538) [address]: Motorcycle Riding Instructor/Techni sebastian ID = [id number] for Ia Giulia mckee MR, BRAIN, [id number] 02:52:00Unlisted Reason for Exam - Click Yes [...] likely due to collateral veins. Signed: Rao Torreeport Verified Date/Time: 04/24/2020 02:52:33 U/S, ABDOMINAL, [id number] 23:25:00Abdomen limited area? Add comment if clarification [...] Cholecystectomy and right nephrectomy. . Signed: Rao TorreSecure Computing Verified Date/Time: 04/23/2020 23:25:58 POCT-GLUCOSE [id number] 23:17:00 Test Item Value Reference Range Interpretation Comments POC-GLUCOSE METER 206 mg/dL 70-110 H : TESTED A T [facility] 6720 (BEAKER) (test code = [place], 1538) 79[address]: Motorcycle Riding Instructor/Techni sebastian ID = [id number] for LAVONNE MUSTAFA POCT-GLUCOSE [id number] 17:40:00 Test Item Value Reference Range Interpretation Comments POC-GLUCOSE METER 249 mg/dL 70-110 H : Notified RN/MD: ([place]) (test code = TESTED AT [facility] 6720 1538) SADAF [facility], [address]: Motorcycle Riding Instructor/Techni sebastian ID = [id number] for Jazmin Sandoval CT, BRAIN, WITHOUT [id number] 10:32:00Unlisted Reason for Exam - Click Yes [...] Signed: Stephanie Rangel Verified Date/Time: 04/23/2020 10:32:40 CBC W/PLT COUNT [...] % 0-1 PERCENT (BEAKER) (test code = 4311) BASIC METABOLIC [id number] 05:03:00 Test Item Value Reference Range Interpretation [...] S NOT APPLICABLE FOR DIALYSIS PATIEN TS. Motorcycle Riding Instructor ID - EVELIA MSpecimen moderately ictericHEPATIC FUNCTION [id number] 05:03:00 Test Item Value Reference Range Interpretation [...] Specimen moderately (test code = 347) hemolyzed Motorcycle Riding Instructor ID - EVELIA MSpecimen moderately ictericPOCT-GLUCOSE [id number] 04:01:00 Test Item Value Reference Range Interpretation Comments POC-GLUCOSE METER 193 mg/dL 70-110 H : TESTED A T [facility] 6720 (BEAKER) (test code SAD[facility], = 1538) 18884: Motorcycle Riding Instructor/Techni sebastian ID = [id number] for RUSSELL LAWRENCEESME POCT-GLUCOSE [id number] 21:04:00 Test Item Value Reference Range Interpretation Comments POC-GLUCOSE METER 198 mg/dL 70-110 H : TESTED A T [facility] 6720 (BEAKER) (test code = JEANE Noriega [facility], 1538) 74471: Motorcycle Riding Instructor/Techni sebastian ID = [id number] for Alla Molina POCT-GLUCOSE [id number] 16:17:00 Test Item Value Reference Range Interpretation Comments POC-GLUCOSE METER 266 mg/dL 70-110 H : TESTED A T [facility] 6720 (BEAKER) (test code = JEANE Noriega [facility], 1538) 34548: Motorcycle Riding Instructor/Techni sebastian ID = [id number] for BRUCE DUMONT SARS-COV2/RT-PCR ([facility])2020-04-22 14:59:00 Test Item Value Reference Range Interpretation Comments SARS-COV2/RT-PCR (test Negative Not Detected, Negative, code = 3448000) See external report for linked test SARS-COV-2 PERFORMING LAB [facility] (test code = 1362126) Negative result for this test determines that [...] of the Act.Fact Sheet for Healthcare Prov iders:https://www.[employer]/sites/default/files/product/documents/Fact_Sheet_HC _Fbkpbcbhw_Qrpf_FUYV-MzE-8.pdfFact Sheet for Healthcare Patients:https://www.[employer]/sites/default/files/product/docume nts/Eatp_Knaqs_Yocjcnxa_Uavx_GWOD-RvV-5.pdfPerforming Laboratory:[facility], [place] [address]SPEO-PIWAXTT METER 2020-04-22 12:21:00 Test Item Value Reference Range Interpretation Comments POC-GLUCOSE METER 210 mg/dL 70-110 H : TESTED A T [facility] 6720 (BEAKER) (test code = GELACIOKINSEY Noriega [facility], 1538) 10[address]: Motorcycle Riding Instructor/Techni sebastian ID = [id number] for BRUCE DUMONT [id number] 11:00:00 Test Item Value Reference Range Interpretation Comments PHOSPHORUS (BEAKER) (test code = 3.1 mg/dL 2.3-4.7 604) Motorcycle Riding Instructor ID - EVELIA [id number] 11:00:00 Test Item Value Reference Range Interpretation Comments MAGNESIUM (BEAKER) (test code = 1.9 mg/dL 1.6-2.6 627) Motorcycle Riding Instructor ID - EVELIA MBASIC METABOLIC [id number] 11:00:00 Test Item Value Reference Range Interpretation [...] S NOT APPLICABLE FOR DIALYSIS PATIEN TS. Motorcycle Riding Instructor ID - EVELIA Davilaecimen moderately ictericHEPATIC FUNCTION [id number] 11:00:00 Test Item Value Reference Range Interpretation [...] code = 112 U/L 6-55 H 347) Motorcycle Riding Instructor ID - EVELIA Davilaecimen moderately ictericPOCT-GLUCOSE [id number] 08:40:00 Test Item Value Reference Range Interpretation Comments POC-GLUCOSE METER 187 mg/dL 70-110 H : TESTED A T [facility] (BEAKER) (test code = [place], 1538) [address]: Motorcycle Riding Instructor/Techni sebastian ID = [id number] for BRUCE DUMONT CBC W/PLT COUNT & AUTO [id number] 07:04:00 Test Item Value Reference Range Interpretation [...] PERCENT (BEAKER) (test code = 2801) POCT-GLUCOSE [id number] 23:41:00 Test Item Value Reference Range Interpretation Comments POC-GLUCOSE METER 211 mg/dL 70-110 H : TESTED A T [facility] 6720 (BEAKER) (test code = [place], 1538) [address]: Motorcycle Riding Instructor/Techni sebastian ID = [id number] for SHABBIR BEAN URINALYSIS W/ [id number] 21:58:00 Test Item Value Reference Range Interpretation [...] = 516) SOURCE(BEAKER) (test code = 2795) Motorcycle Riding Instructor ID - [auto]Motorcycle Riding Instructor ID - hankFUNGUS CULTURE + [id number] 18:07:00 Test Item Value Reference Range Interpretation Comments CULTURE (BEAKER) A 3+ Lorri albicans (test code = 1095) FUNGUS SMEAR No fungi seen (BEAKER) (test code = 1406) ANAEROBIC [id number] 18:52:00 Test Item Value Reference Range Interpretation Comments CULTURE (BEAKER) (test No anaerobes isolated code = 1095) CBC W/PLT COUNT & AUTO [id number] 06:39:00 Test Item Value Reference Range Interpretation [...] (BEAKER) (test code = 2801) COMPREHENSIVE METABOLIC [id number] 06:17:00 Test Item Value Reference Range Interpretation [...] S NOT APPLICABLE FOR DIALYSIS PATIEN TS. Motorcycle Riding Instructor ID - EVELIA MCOMPREHENSIVE METABOLIC [id number] 05:24:00 Test Item Value Reference Range Interpretation [...] S NOT APPLICABLE FOR DIALYSIS PATIEN TS. Motorcycle Riding Instructor ID - EDASIWOUND CULTURE + GRAM [id number] 10:29:00 Test Item Value Reference Range Interpretation [...] <1+ budding yeast (BEAKER) (test code = 442229) CBC W/PLT COUNT & AUTO [id number] 05:33:00 Test Item Value Reference Range Interpretation [...] (BEAKER) (test code = 2801) COMPREHENSIVE METABOLIC [id number] 05:08:00 Test Item Value Reference Range Interpretation [...] S NOT APPLICABLE FOR DIALYSIS PATIEN TS. Motorcycle Riding Instructor ID - EDASISpecimen slightly ictericCOMPREHENSIVE METABOLIC PANEL [...] S NOT APPLICABLE FOR DIALYSIS PATIEN TS. Motorcycle Riding Instructor ID - PIAYA LSpecimen slightly ictericCBC W/PLT COUNT & AUTO [id number] 05:03:00 Test Item Value Reference Range Interpretation [...] (BEAKER) (test code = 2801) CT, DRAINAGE, [id number] 12:12:00Reason for exam:->Diverticulitis with increasing size of abscessFINAL REPORT PROCEDURE: CT, DRAINAGE, ABDOMINAL DOSE REDUCTION: The examinationwas performed according to departmental dose-optimization program which includes automated exposure c ontrol, adjustment of the mA and/or kV according to patient size and/or use of iterative reconstruction technique. HISTORY: Diverticulitis with increasing size of abscess Motorcycle Riding Instructor: Bam Ko MD Moderate sedation: See nursing [...] dilated using serial dilators. Subsequently a 8 Dutch all-purpose drainage catheter was advanced into the [...] Ko Verified Date/Time: 04/01/2020 12:12:30 Reading Location: [facility] C0[facility] Transitional Reading Room CBC W/PLT COUNT & AUTO [id number] 06:34:00 Test Item Value Reference Range Interpretation [...] 0-1 PERCENT (BEAKER) (test code = 2801) [id number] 06:33:00 Test Item Value Reference Range Interpretation Comments MAGNESIUM (BEAKER) 2.0 mg/dL 1.6-2.6 Specimen slightly (test code = 627) hemolyzed Motorcycle Riding Instructor ID - EVELIA [id number] 06:33:00 Test Item Value Reference Range Interpretation Comments PHOSPHORUS (BEAKER) 2.0 mg/dL 2.3-4.7 L Specimen slightly (test code = 604) hemolyzed Motorcycle Riding Instructor ID - EVELIA MCOMPREHENSIVE METABOLIC [id number] 06:33:00 Test Item Value Reference Range Interpretation [...] S NOT APPLICABLE FOR DIALYSIS PATIEN TS. Motorcycle Riding Instructor ID - EVELIA MSpecimen slightly ictericCOMPREHENSIVE METABOLIC [...] S NOT APPLICABLE FOR DIALYSIS PATIEN TS. Motorcycle Riding Instructor ID - MICHELL CSpecimen slightly [id number] 09:49:00 Test Item Value Reference Range Interpretation Comments MAGNESIUM (BEAKER) (test code = 2.1 mg/dL 1.6-2.6 627) Motorcycle Riding Instructor ID - MICHELL CLACTIC ACID, [id number] 09:45:00 Test Item Value Reference Range Interpretation Comments LACTATE BLOOD VENOUS (2) (BEAKER) 1.05 mmol/L 0.50-2.20 (test code = 2872) Motorcycle Riding Instructor ID - MICHELL CPT/[id number] 09:35:00 Test Item Value Reference Range Interpretation [...] mechanical heart valves.CBC W/PLT COUNT & AUTO [id number] 09:26:00 Test Item Value Reference Range Interpretation [...]
[2023-04-29 10:11] LABS: Absolute Lymphocytes (CBC) 0.9 K/uL (0.7-4.9); MCV 86.6 fL (80-100); MPV 9.4 fL (7.6-11.3); Platelets 145 thou/uL (152-406); RBC Red Blood Cell Count 3.81 M/uL (3.86-4.86)
[2023-04-29 10:17] LABS: Protime INR 1.18
[2023-04-29 10:34] LABS: Albumin 2.4 g/dL (3.4-5.0); Bilirubin Total 0.5 mg/dL (0.2-1.0); Potassium 2.8 mEq/L (3.5-5.1); Protein, Total 5.8 g/dL (6.4-8.2)
[2023-04-29 10:37] LABS: Specific Gravity 1.012 (1.005-1.030); Transitional Epithelial <5 /HPF (None Seen); Urine Bacteria >50 /HPF (<20); Urine Bilirubin NEGATIVE (Negative); Urine Blood 1+ (Negative); Urine Clarity Extremely Turbid (Clear); Urine Color Light-Orange (Yellow); Urine Glucose NEGATIVE (Negative); Urine Mucus Slight /HPF (None Seen); Urine Protein 1+ (Negative); Urine Urobilinogen Normal (Normal); Urine WBC Clump Few /HPF (None Seen)
[2023-04-29] MEDS ORDERED: POTASSIUM CL SA 10 MEQ TAB PO ONE (10:52)
--- NOTE | 2023-04-29 11:03 | RAD REPORT ---
EXAM DESCRIPTION: CTAbdomen Pelvis W Contrast - 04/29/2023 10:51 am CLINICAL HISTORY: ABD PAIN COMPARISON: Abdomen Pelvis W Contrast dated 09/10/2020; Abdomen Pelvis W Contrast dated 05/14/2020 ; Abdomen Pelvis W Contrast dated 05/02/2020; Abdomen Pelvis W Contrast dated 04/21/2020 TECHNIQUE: CT of the abdomen and pelvis was performed. All CT scans are performed using dose optimization technique as appropriate and may include automated exposure control or mA/KV adjustment according to patient size. FINDINGS: Lower chest: Mitral annular calcifications. Aortic valve calcifications. Liver: No acute abnormality or suspicious lesions. Biliary: Cholecystectomy. Extrahepatic biliary ductal dilatation is likely related to the postcholecy stectomy state. Stomach: Surgical changes at the stomach. Duodenum: No significant focal abnormality. Pancreas: No significant abnormality. Spleen: No significant abnormality. Adrenal: No suspicious lesions. Kidney/ureter: No hydronephrosis. No renal calculi. Right nephrectomy. Retroperitoneum: No retroperitoneal adenopathy. Vascular: No aneurysm. Atherosclerosis. Bowel: No significant focal abnormality. Peritoneum: No ascites or free air. Bladder: Bladder wall thickening and hyperenhancement with multiple bladder diverticula. Trace bladde r gas. Reproductive: Hysterectomy. Bones: No acute fracture. Other: n/a IMPRESSION: Bladder wall thickening, hyperenhancement, and stranding concerning for cystitis. Severa l bladder diverticula noted. No other acute process identified.
--- NOTE | 2023-04-29 11:05 | RAD REPORT ---
EXAM DESCRIPTION: CT - CTHCSPWOC - 04/29/2023 10:48 am CLINICAL HISTORY: Trauma, head and neck injury. Pain;Trauma COMPARISON: Soft Tissue Neck W/Contr dated 06/29/2020; Neck Angio dated 03/26/2018 TECHNIQUE: Axial 5 mm thick images of the head were obtained. Axial 2 mm thick images of the cervical spine were obtained with sagittal and coronal reconstruction images generated and reviewed. All CT scans are performed using dose optimization technique as appropriate and may include automated exposure control or mA/KV adjustment according to patient size. FINDINGS: CT HEAD WITHOUT CONTRAST: No acute hemorrhage, hydrocephalus or extra-axial collection is identified.No areas of brain edema or midline shift. Calcified meningioma along the right posterior cranial fossa measuring 19 millimeters is unchanged. Right occipital scalp swelling. The paranasal sinuses and mastoids are clear.The calvarium is intact. CT CERVICAL SPINE WITHOUT CONTRAST: No fracture or subluxation.No prevertebral soft tissues swelling is identified. IMPRESSION: No acute intracranial or cervical spine findings.
[2023-04-29] MEDS ORDERED: CEFTRIAXONE 1000 MG/VIAL ONE (11:09)
--- NOTE | 2023-04-29 11:39 | ER ---
Nurse's Notes [facility] Name: Radha Ocampo Age: 82 yrs Sex: Female : 1940 Arrival Date: 04/29/2023 Time: 08:49 Bed 7 Private MD: Toby Parks V Diagnosis: Acute cystitis Presentation: 04/29 09:21 Chief complaint: Patient states: she has been having urinary frequency, bladder ap3 pressure, mental fog nausea and diarrhea for approx 4-5 days. patient states she fell Friday morning around 0200. patients son reports the patient has been acting more confused lately, and they wanted to bring her in for evaluation. Coronavirus screen: At this time, the client does not indicate any symptoms associated with coronavirus-19. Ebola Screen: No symptoms or risks identified at this time. Initial Sepsis Screen: Does the patient meet any 2 criteria? No. Patient's initial sepsis screen is negative. Does the patient have a suspected source of infection? Yes: Dysuria/Frequency/Urgency/UTI. Risk Assessment: Do you want to hurt yourself or someone else? Patient reports no desire to harm self or others. Onset of symptoms was April 25, 2023. 09:21 Method Of Arrival: Wheelchair ap3 09:21 Acuity: CIARA 3 ap3 Triage Assessment: 09:23 General: Appears in no apparent distress. Behavior is calm, cooperative. Pain: Denies ap3 pain. Neuro: Level of Consciousness is awake, alert, obeys commands, Oriented to person, place, unable to give weight, mixes up numbers. Cardiovascular: Patient's skin is warm and dry. Respiratory: Airway is patent Respiratory effort is even, unlabored, Respiratory pattern is regular, symmetrical. : Reports urgency, urinary frequency. Historical: - Allergies: 09:23 meperidine HCl (rash); ap3 09:23 Morphine; ap3 - PMHx: :23 ADD/ADHD; Depression; DM chemical induced; giant cell arteritis; Giant Cell Arthritis; ap3 Hyperlipidemia; Hypertension; Hypothyroidism; Myocardial infarction; renal cell carcinoma; renal cell carcinoma contained; stage 3 kidney failure; - Immunization history:: Client reports receiving the 2nd dose of the Covid vaccine. - Social history:: Smoking status: Patient denies any tobacco usage or history of. Screenin:[facility] Fall Risk Assessment (Adult) History of falling in the last 3 months, ap3 including since admission Yes- single mechanical fall (1 pt) Confusion or Disorientation Yes (5 pts) Intoxicated or Sedated No (0 pts) Impaired Gait Yes (1 pt) Mobility Assist Device Used Yes (1 pt) Altered Elimination Yes (1 pt). Abuse screen: Denies threats or abuse. Nutritional screening: No deficits noted. Tuberculosis screening: No symptoms or risk factors identified. Assessment: 09:52 General: Appears in no apparent distress. Behavior is calm, cooperative. Pain: mb9 Complains of pain in left arm and right side of the back of head Quality of pain is described as throbbing. Neuro: Galarza Agitation-Sedation Scale (RASS): 0 - Alert and Calm Level of Consciousness is awake, alert, obeys commands, Oriented to person, place, time, situation, Appropriate for age. Cardiovascular: Patient's skin is warm and dry. Respiratory: Airway is patent Respiratory effort is even, unlabored, Respiratory pattern is regular, symmetrical. GI: Abdomen is round non-distended, Bowel sounds present X 4 quads. Abd is soft and non tender X 4 quads. Reports diarrhea, nausea. : Urine is cloudy, Reports burning with urination, urgency, since 4 days ago urinary frequency. EENT: No signs and/or symptoms were reported regarding the EENT system. Derm: Skin is pink, warm \T\ dry. Bruising that is dark purple, on left arm. Musculoskeletal: Range of motion: intact in all extremities. 10:43 Reassessment: No changes from previously documented assessment. Patient and/or family mb9 updated on plan of care and expected duration. Pain level reassessed. Patient is alert, oriented x 3, equal unlabored respirations, skin warm/dry/pink. 11:34 Reassessment: Patient and/or family updated on plan of care and expected duration. Pain mb9 level reassessed. Patient is alert, oriented x 3, equal unlabored respirations, skin warm/dry/pink. Patient states feeling better. Patient states symptoms have improved. Vital Signs: 09:21 BP 111 / 49; Pulse 81; Resp 19; Temp 98; Pulse Ox 98% ; ap3 09:58 BP 97 / 82; Pulse 73; Resp 16; Pulse Ox 97% on R/A; mb9 11:35 BP 115 / 53; Pulse 73; Resp 16; Pulse Ox 100% on R/A; mb9 ED Course: 08:52 Patient arrived in ED. mg5 08:52 Toby Parks MD is Private Physician. mg5 08:55 Azra Abel FNP-C is [facility]. kb 08:55 Markie Hayes MD is Attending Physician. kb 09:23 Triage completed. ap3 09:24 Arm band placed on right wrist. ap3 09:24 Patient has correct armband on for positive identification. Bed in low position. Call ap3 light in reach. Side rails up X2. Adult w/ patient. Pulse ox on. NIBP on. 09:42 Wendi Weir, RN is Primary Nurse. mb9 09:58 No provider procedures requiring assistance completed. mb9 10:50 CT Head C Spine In Process Unspecified. EDMS 10:52 CT Abd/Pelvis - IV Contrast Only In Process Unspecified. EDMS 11:38 Toby Parks MD is Referral Physician. kb 11:44 IV discontinued, intact, bleeding controlled, No redness/swelling at site. Pressure mb9 dressing applied. Administered Medications: 11:00 Drug: Potassium Chloride PO 40 mEq Route: PO; mb9 11:53 Follow up: Response: No adverse reaction mb9 11:22 Drug: Rocephin IV 1 grams Route: IV; Rate: calculated rate; Site: right antecubital; mb9 11:53 Follow up: Response: No adverse reaction; IV Status: Completed infusion mb9 Medication: 09:58 VIS not applicable for this client. mb9 Outcome: 11:38 Discharge ordered by . kb 11:53 Discharged to home ambulatory. mb9 11:53 Condition: stable 11:53 Discharge instructions given to patient, Instructed on discharge instructions, follow up and referral plans. Demonstrated understanding of instructions, follow-up care, medications, Prescriptions given X 1. 11:53 Patient left the ED. mb9 Signatures: Dispatcher [employer] EDMS Azra Abel FNP-C FNP-Ckb Prokisch, Amanda RN RN ap3 Wendi Weir, CONCETTA RN mb9 Arpita Dumont mg5
--- NOTE | 2023-04-29 11:39 | EDPHYS ---
Physician Documentation [facility] Name: Radha Ocampo Age: 82 yrs Sex: Female : 1940 Arrival Date: 04/29/2023 Time: 08:49 Bed 7 Private MD: Toby Parks V ED Physician Markie Hayes HPI: 04/29 11:32 This 82 yrs old Female presents to ER via Wheelchair with complaints of Urinary kb Problem, Arm Pain - fell Sun. 11:32 The patient presents with urinary symptoms, frequency. Onset: The symptoms/episode kb began/occurred 4 day(s) ago. Modifying factors: The symptoms are alleviated by nothing, the symptoms are aggravated by urinating. Associated signs and symptoms: Pertinent positives: urinary frequency, pressure to suprapubic area. Severity of symptoms: At their worst the symptoms were mild, moderate, in the emergency department the symptoms are unchanged. The patient has experienced similar episodes in the past. The patient has not recently seen a physician. Pt reports urinary frequency, suprapubic pressure and weakness for 4 days. Denies fever. States she had fall over the weekend and hit her head. Denies loc. . Historical: - Allergies: 09:23 meperidine HCl (rash); ap3 09:23 Morphine; ap3 - PMHx: 09:23 ADD/ADHD; Depression; DM chemical induced; giant cell arteritis; Giant Cell Arthritis; ap3 Hyperlipidemia; Hypertension; Hypothyroidism; Myocardial infarction; renal cell carcinoma; renal cell carcinoma contained; stage 3 kidney failure; - Immunization history:: Client reports receiving the 2nd dose of the Covid vaccine. - Social history:: Smoking status: Patient denies any tobacco usage or history of. ROS: 11:31 Constitutional: Negative for fever, chills, and weight loss. kb 11:31 : Positive for urinary symptoms, urinary frequency. 11:31 Neuro: Positive for headache, weakness. 11:32 All other systems are negative. kb 11:39 Abdomen/GI: Positive for nausea, diarrhea. kb Exam: 09:30 Constitutional: This is a well developed, well nourished patient who is awake, alert, kb and in no acute distress. ENT: Moist Mucous membranes Cardiovascular: Regular rate Respiratory: Respirations even and unlabored. No increased work of breathing. Talking in full sentences Abdomen/GI: Soft, non-tender. No distention MS/ Extremity: Pulses equal, no cyanosis. Neurovascular intact. Full, normal range of motion. Neuro: Awake and alert, GCS 15, oriented to person, place, time, and situation. Moves all extremities. Normal gait. 09:30 Head/face: Noted is no obvious of injury or deformity except hematoma, that is moderate, of the right side of the back of head. 09:30 ECG was reviewed by the Attending Physician. Vital Signs: 09:21 BP 111 / 49; Pulse 81; Resp 19; Temp 98; Pulse Ox 98% ; ap3 09:58 BP 97 / 82; Pulse 73; Resp 16; Pulse Ox 97% on R/A; mb9 11:35 BP 115 / 53; Pulse 73; Resp 16; Pulse Ox 100% on R/A; mb9 MDM: 08:55 Patient medically screened. kb 11:32 Data reviewed: vital signs, nurses notes. kb 11:37 Differential diagnosis: urinary tract infection, cystitis, colitis, diverticulitis, kb head injury, pyelonephritis. Consideration of Admission/Observation Escalation of care including admission/observation considered. admission considered, but pt is well appearing, vital signs stable, afebrile, lactate normal. Historians other than the Patient: Daughter/Son: son. Counseling: I had a detailed discussion with the patient and/or guardian regarding the historical points, exam findings, and any diagnostic results supporting the discharge/admit diagnosis, lab results, radiology results, the need for outpatient follow up, a family practitioner, to return to the emergency department if symptoms worsen or persist or if there are any questions or concerns that arise at home. 04/29 09:01 Order name: Blood Culture Adult (2) kb 04/29 09:01 Order name: CBC with Diff; Complete Time: 10:34 kb 04/29 09:01 Order name: CMP; Complete Time: 10:35 kb 04/29 09:01 Order name: Lactate w/ 2H reflex if indic.; Complete Time: 10:34 kb 04/29 09:01 Order name: Protime (+inr); Complete Time: 10:34 kb 04/29 09:01 Order name: Ptt, Activated; Complete Time: 10:34 kb 04/29 09:01 Order name: Urinalysis w/ reflexes; Complete Time: 10:40 kb 04/29 10:42 Order name: Urine Culture EDMS 04/29 09:32 Order name: CT Head C Spine; Complete Time: 11:10 kb 04/29 09:32 Order name: CT Abd/Pelvis - IV Contrast Only; Complete Time: 11:10 kb 04/29 09:01 Order name: EKG; Complete Time: 09:02 kb 04/29 09:01 Order name: Accucheck; Complete Time: 09:42 kb 04/29 09:01 Order name: Cardiac monitoring; Complete Time: 09:42 kb 04/29 09:01 Order name: EKG - Nurse/Tech; Complete Time: 09:42 kb 04/29 09:01 Order name: IV Saline Lock - Large Bore; Complete Time: 09:42 kb 04/29 09:01 Order name: Labs collected and sent; Complete Time: :42 kb 04/29 09:01 Order name: O2 Per Protocol; Complete Time: 09:42 kb 04/29 09:01 Order name: O2 Sat Monitoring; Complete Time: :42 kb 04/29 09:01 Order name: Vital Signs; Complete Time: 09:42 kb 04/29 11:45 Order name: Labs - recollect needed: recollect blood culture bd EC:30 Rate is 77 beats/min. Rhythm is regular. QRS [place] is Normal. RI interval is normal at kb 156 msec. QRS interval is normal at 82 msec. QT interval is normal at 409 msec. Administered Medications: 11:00 Drug: Potassium Chloride PO 40 mEq Route: PO; mb9 11:53 Follow up: Response: No adverse reaction mb9 11:22 Drug: Rocephin IV 1 grams Route: IV; Rate: calculated rate; Site: right antecubital; mb9 11:53 Follow up: Response: No adverse reaction; IV Status: Completed infusion mb9 Disposition Summary: 04/29/23 11:38 Discharge Ordered Location: Home kb Condition: Stable kb Diagnosis - Acute cystitis kb Followup: kb - With: Emergency Department - When: As needed - Reason: Worsening of condition Followup: kb - With: Toby Parks MD - When: 2 - 3 days - Reason: Recheck today's complaints, Continuance of care, Re-evaluation by your physician Discharge Instructions: - Discharge Summary Sheet kb - Urinary Tract Infection, Adult, [id number] kb Forms: - Medication Reconciliation Form kb - Thank You Letter kb - Antibiotic Education kb - Prescription Opioid Use kb - Patient Portal Instructions kb - Leadership Thank You Letter kb Prescriptions: - cefpodoxime 100 mg Oral Tablet - take 1 tablet by ORAL route every 12 hours for 10 days take with food; 20 kb tablet; Refills: 0, Product Selection Permitted Signatures: Dispatcher [employer] Azra Leos, JUSTUS LOMBARDO-Manasa Yuan Amanda RN RN ap3 Wendi Weir RN RN mb9
[2023-04-29 12:33] VITALS: TEMP 98
[2023-04-29 12:35] VITALS: BP 115/53; O2SAT 100
--- NOTE | 2023-04-30 14:58 | EKG ---
Test Date: 2023-04-29 Test Time: 09:27:25 Rate Clerk: HEATHER MEASUREMENT RESULTS: Intervals: Rate: 77 FL: 156 QRSD: 82 QT: 362 QTc: 409 [place]: P: -6 FL: 156 QRS: 27 T: 85 INTERPRETIVE STATEMENTS: Normal sinus rhythm Nonspecific ST and T wave abnormality Abnormal ECG Compared to ECG 04/29/2023 09:26:16 ST (T wave) deviation now present T-wave abnormality no longer present Electronically Signed On 04-30-23 14:55:03 CDT by Antonio See
--- NOTE | 2023-04-30 14:58 | EKG ---
Test Date: 2023-04-29 Test Time: 09:26:16 Site Administrator: HEATHER MEASUREMENT RESULTS: Intervals: Rate: 76 RI: 152 QRSD: 82 QT: 408 QTc: 459 Payne: P: RI: 152 QRS: 27 T: 81 INTERPRETIVE STATEMENTS: Normal sinus rhythm Nonspecific T wave abnormality Abnormal ECG Compared to ECG 12/18/2022 18:24:21 T-wave abnormality now present ST (T wave) deviation no longer present Electronically Signed On 04-30-23 14:55:07 CDT by Antonio See
== END 2023-04-29 11:53 | disposition home or self-care (01) ==
LOC: ER 08:49
DX: N30.00 Acute cystitis without hematuria (principal); E11.22 Type 2 diabetes mellitus with diabetic chronic kidney disease; I12.9 Hypertensive chronic kidney disease with stage 1 through stage 4 chronic kidney disease, or unspecified chronic kidney disease; N18.30 Chronic kidney disease, stage 3 unspecified; Z88.5 Allergy status to narcotic agent; Z88.8 Allergy status to other drugs, medicaments and biological substances
CPT/HCPCS: 96365; 93005 ×2; 87040 ×2; 87088; 85025; 81001; 87086; 36415; 85610; 83605; 85730; 80053; 70450; 72125; 74177; 99284; Q9967; J0696; 87077; 87186

== ENCOUNTER 2023-05-06 22:20 | Observation (INO) | payer OTHER ==
[2023-05-06 23:48] LABS: Renal Epithelial <5 /HPF (None Seen); Specific Gravity 1.014 (1.005-1.030); Transitional Epithelial <5 /HPF (None Seen); Urine Bacteria <20 /HPF (<20); Urine Bilirubin NEGATIVE (Negative); Urine Blood Negative (Negative); Urine Clarity Clear (Clear); Urine Color Light-Yellow (Yellow); Urine Glucose NEGATIVE (Negative); Urine Mucus Slight /HPF (None Seen); Urine Protein 1+ (Negative); Urine RBC <5 /HPF (None Seen); Urine Urobilinogen Normal (Normal)
[2023-05-07] MEDS ORDERED: NA CHLORIDE 0.9% 1,000 ML ONE (00:20)
[2023-05-07] MEDS ORDERED: CEFTRIAXONE 1000 MG/VIAL ONE (00:20)
[2023-05-07 00:59] LABS: Absolute Lymphocytes (CBC) 1.2 K/uL (0.7-4.9); Hematocrit 32.7 % (36.0-45.0); Lymphocytes % 18.1 % (15.3-44.8); MCV 85.4 fL (80-100); MPV 8.5 fL (7.6-11.3); Platelets 233 thou/uL (152-406); RBC Red Blood Cell Count 3.83 M/uL (3.86-4.86)
--- NOTE | 2023-05-07 01:06 | EDPHYS ---
Physician Documentation [facility] Name: Radha Ocampo Age: 82 yrs Sex: Female : 1940 Arrival Date: 05/06/2023 Time: 22:20 Bed 13 Private MD: ED Physician New Shen HPI: 05/06 23:06 This 82 yrs old Female presents to ER via Wheelchair with complaints of cheri Dizziness, Fever, Nausea. 23:06 The patient presents with dizziness, feeling faint, generalized weakness. Onset: The cheri symptoms/episode began/occurred 3 day(s) ago. Context: occurred at an unknown location. Modifying factors: The symptoms are alleviated by nothing, the symptoms are aggravated by nothing. Associated signs and symptoms: Pertinent positives: abdominal pain, nausea, vomiting. Severity of symptoms: At their worst the symptoms were mild in the emergency department the symptoms are unchanged. Patient's baseline: Neuro:. The patient has experienced similar episodes in the past, a few times. Historical: - Allergies: 22:40 Morphine; lg3 22:40 meperidine HCl (rash); lg3 22:40 Demerol; lg3 - Home Meds: 22:40 Unable to obtain [Active]; lg3 - PMHx: 22:40 ADD/ADHD; Depression; DM chemical induced; giant cell arteritis; Giant Cell Arthritis; lg3 Hyperlipidemia; Hypertension; Hypothyroidism; Myocardial infarction; renal cell carcinoma; renal cell carcinoma contained; stage 3 kidney failure; - PSHx: 22:40 Cholecystectomy; hysterectomy; right nephrectomy; gastric bypass; lg3 - Immunization history:: Adult Immunizations up to date. - Social history:: Smoking status: Patient denies any tobacco usage or history of. Patient/guardian denies using alcohol, street drugs. ROS: 23:08 Constitutional: Negative for fever, chills, and weight loss, Eyes: Negative for injury, cheri pain, redness, and discharge, ENT: Negative for injury, pain, and discharge, Neck: Negative for injury, pain, and swelling, Cardiovascular: Negative for chest pain, palpitations, and edema, Respiratory: Negative for shortness of breath, cough, wheezing, and pleuritic chest pain, Back: Negative for injury and pain, : Negative for injury, bleeding, discharge, and swelling, MS/Extremity: Negative for injury and deformity, Skin: Negative for injury, rash, and discoloration, Psych: Negative for depression, anxiety, suicide ideation, homicidal ideation, and hallucinations, Allergy/Immunology: Negative for hives, rash, and allergies, Endocrine: Negative for neck swelling, polydipsia, polyuria, polyphagia, and marked weight changes, Hematologic/Lymphatic: Negative for swollen nodes, abnormal bleeding, and unusual bruising, 23:08 Abdomen/GI: Positive for abdominal pain, nausea and vomiting, diarrhea, abdominal cramps, Exam: 23:08 Constitutional: This is a well developed, well nourished patient who is awake, alert, cheri and in no acute distress. Head/Face: Normocephalic, atraumatic. Eyes: Pupils equal round and reactive to light, extra-ocular motions intact. Lids and lashes normal. Conjunctiva and sclera are non-icteric and not injected. Cornea within normal limits. Periorbital areas with no swelling, redness, or edema. ENT: Nares patent. No nasal discharge, no septal abnormalities noted. Tympanic membranes are normal and external auditory canals are clear. Oropharynx with no redness, swelling, or masses, exudates, or evidence of obstruction, uvula midline. Mucous membranes moist. Neck: Trachea midline, no thyromegaly or masses palpated, and no cervical lymphadenopathy. Supple, full range of motion without nuchal rigidity, or vertebral point tenderness. No Meningismus. Chest/axilla: Normal chest wall appearance and motion. Nontender with no deformity. No lesions are appreciated. Cardiovascular: Regular rate and rhythm with a normal S1 and S2. No gallops, murmurs, or rubs. Normal PMI, no JVD. No pulse deficits. Respiratory: Lungs have equal breath sounds bilaterally, clear to auscultation and percussion. No rales, rhonchi or wheezes noted. No increased work of breathing, no retractions or nasal flaring. Back: No spinal tenderness. No costovertebral tenderness. Full range of motion. Female : Normal external genitalia. Skin: Warm, dry with normal turgor. Normal color with no rashes, no lesions, and no evidence of cellulitis. MS/ Extremity: Pulses equal, no cyanosis. Neurovascular intact. Full, normal range of motion. Neuro: Awake and alert, GCS 15, oriented to person, place, time, and situation. Cranial nerves II-XII grossly intact. Motor strength 5/5 in all extremities. Sensory grossly intact. Cerebellar exam normal. Normal gait. Psych: Awake, alert, with orientation to person, place and time. Behavior, mood, and affect are within normal limits. 23:08 Abdomen/GI: Inspection: abdomen appears normal, Bowel sounds: normal, Palpation: mild abdominal tenderness, in the right lower quadrant and left lower quadrant, Liver: no appreciated palpable abnormalities, Hernia: not appreciated, Vital Signs: 22:34 BP 135 / 66; Pulse 86; Resp 17 S; Temp 97.8(O); Pulse Ox 96% on R/A; Weight 63.5 kg lg3 (R); Height 5 ft. 0 in. (R); 05/07 01:00 BP 150 / 69; Pulse 72; Resp 15 S; Pulse Ox 96% on R/A; lg3 03:15 BP 145 / 53; Pulse 78; Resp 16 S; Pulse Ox 96% on R/A; lg3 05/06 22:34 Body Mass Index 27.34 (63.50 kg, 152.4 cm) lg3 MDM: 05/06 22:46 Patient medically screened. [facility] 23:09 Differential diagnosis: cardiac arrhythmia, hypovolemia, idiopathic dizziness. Data [facility] reviewed: vital signs, nurses notes, EMS record, lab test result(s), EKG, radiologic studies, CT scan, plain films. Consideration of Admission/Observation Patient was admitted/placed on observation. Escalation of care including admission/observation considered. I considered the following discharge prescriptions or medication management in the emergency department Medications were administered in the Emergency Department. See MAR. Independent interpretation of the following test(s) in the Emergency Department EKG: See my EKG interpretation above. Test considered but Not performed: Ultrasound no abdominal usg. Care significantly affected by the following chronic conditions: Diabetes, Hypertension, depression, giant cell arteritis. Counseling: I had a detailed discussion with the patient and/or guardian regarding the historical points, exam findings, and any diagnostic results supporting the discharge/admit diagnosis, lab results, radiology results, the need for further work-up and treatment in the hospital. 05/06 23:04 Order name: Basic Metabolic Panel; Complete Time: 01:21 [facility] 05/06 23:04 Order name: CBC with Diff; Complete Time: 01:10 cheri 05/06 23:04 Order name: LFT's; Complete Time: 01:21 [facility] 05/06 23:04 Order name: Magnesium; Complete Time: 01:21 [facility] 05/06 23:04 Order name: NT PRO-BNP; Complete Time: 01:21 [facility] 05/06 23:04 Order name: PT-INR [facility] 05/06 23:04 Order name: Troponin HS; Complete Time: 01:21 [facility] 05/06 23:04 Order name: Lipase; Complete Time: 01:21 [facility] 05/06 23:04 Order name: Urinalysis w/ reflexes; Complete Time: 00:12 [facility] 05/06 23:04 Order name: Blood Culture Adult (2) [facility] 05/06 23:04 Order name: Lactate w/ 2H reflex if indic.; Complete Time: 01:10 [facility] 05/06 23:04 Order name: Fecal Leukocyte Stain [facility] 05/06 23:04 Order name: Stool Culture [facility] 05/06 23:04 Order name: CDIFF [facility] 05/06 23:04 Order name: XRAY Chest (1 view) [facility] 05/06 23:04 Order name: CT Chest, Abdomen, Pelvis - W/Contrast [facility] 05/06 23:04 Order name: EKG; Complete Time: 23:05 [facility] 05/06 23:04 Order name: Cardiac monitoring; Complete Time: 00:49 [facility] 05/06 23:04 Order name: EKG - Nurse/Tech; Complete Time: 00:49 [facility] 05/06 23:04 Order name: IV Saline Lock; Complete Time: 00:07 [facility] 05/06 23:04 Order name: Labs collected and sent; Complete Time: 00:07 [facility] 05/06 23:04 Order name: O2 Per Protocol; Complete Time: 00:07 [facility] 05/06 23:04 Order name: O2 Sat Monitoring; Complete Time: 00:07 [facility] 05/06 23:37 Order name: IV - Large Bore; Complete Time: 00:06 [facility] Administered Medications: 05/07 00:23 Drug: NS 0.9% IV 500 ml IV at bolus once Route: IV; Rate: bolus; Site: right wrist; me1 01:36 Follow up: IV Status: Completed infusion; IV Intake: 500ml lg3 00:23 Drug: Rocephin IV 1 grams IV at per protocol once; Given slow IV push per pharmacy me1 instructions Route: IV; Rate: per protocol; Site: right antecubital; 03:16 Follow up: Response: No adverse reaction; IV Status: Completed infusion; IV Intake: [id number] 01:34 Drug: Potassium PO Effervescent Tablet 25 mEq PO once; dissolve in 4 ounces of water or lg3 juice Route: PO; 03:16 Follow up: Response: No adverse reaction lg3 01:36 Drug: NS 0.9% IV 1000 ml IV at 125 ml/hr continuous Route: IV; Rate: 125 ml/hr; Site: lg3 right wrist; 02:04 Drug: Ondansetron IVP 4 mg IVP once; over 2 minutes Route: IVP; Site: right wrist; lg3 03:16 Follow up: Response: No adverse reaction lg3 Disposition Summary: 05/07/23 01:06 Hospitalization Ordered Notes: Hospitalization Status: Inpatient Admission cheri Provider: Toby Parks cha Location: Telemetry/[facility] (Inpatient) cheri Condition: Fair cheri Problem: new cheri Symptoms: have improved cheri Bed/Room Type: Standard [facility] Room Assignment: 207(05/07/23 03:11) Diagnosis - Weakness cheri - Abdominal tenderness cheri - Nausea cheri - Anemia, unspecified cheri - Pleural effusion, not elsewhere classified - left cheri - Acute cystitis cheri - UTI/ Urinary tract infection, site not specified cheri Forms: - Medication Reconciliation Form cheri - SBAR form cheri - Leadership Thank You Letter cheri Signatures: Dispatcher [employer] New Brito MD MD cha Garcia, Cindy, RN RN Janki Yepez RN RN [facility] Nancy Li RN RN me1 Corrections: (The following items were deleted from the chart) 03:11 01:06 cheri cg
--- NOTE | 2023-05-07 01:06 | ER ---
Nurse's Notes [facility] Name: Radha Ocampo Age: 82 yrs Sex: Female : 1940 Arrival Date: 05/06/2023 Time: 22:20 Bed 13 Private MD: Diagnosis: Weakness;Abdominal tenderness;Nausea;Anemia, unspecified;Pleural effusion, not elsewhere classified-left;Acute cystitis;UTI/ Urinary tract infection, site not specified Presentation: 05/06 22:34 Chief complaint: Patient states: nausea, dizziness, lightheaded, dizziness and mucus lg3 like stool since this afternoon. started antibiotics last week for UTI. saw PCP and changed antibiotics to Cipro. PCP called today and said to stop ABX due to negative urine result. Coronavirus screen: Client denies travel out of the [place] in the last 14 days. At this time, the client does not indicate any symptoms associated with coronavirus-19. Ebola Screen: No symptoms or risks identified at this time. Initial Sepsis Screen: Does the patient meet any 2 criteria? No. Patient's initial sepsis screen is negative. Does the patient have a suspected source of infection? No. Patient's initial sepsis screen is negative. Risk Assessment: Do you want to hurt yourself or someone else? Patient reports no desire to harm self or others. Onset of symptoms is unknown. 22:34 Method Of Arrival: Wheelchair lg3 22:34 Acuity: CIARA 3 lg3 Triage Assessment: 22:40 General: Appears in no apparent distress. uncomfortable, Behavior is calm, cooperative. lg3 Pain: Complains of pain in generalized body aches. EENT: No deficits noted. No signs and/or symptoms were reported regarding the EENT system. Neuro: Level of Consciousness is awake, alert, obeys commands, Oriented to person, place, time, situation, Reports dizziness, weakness. Cardiovascular: No deficits noted. Denies chest pain, shortness of breath, Capillary refill < 3 seconds Clubbing of nail beds is absent JVD is absent Patient's skin is warm and dry. Respiratory: No deficits noted. Airway is patent Respiratory effort is even, unlabored, Respiratory pattern is regular, symmetrical. GI: No deficits noted. Abdomen is round non-distended, Reports nausea. : No deficits noted. No signs and/or symptoms were reported regarding the genitourinary system. Derm: No deficits noted. No signs and/or symptoms reported regarding the dermatologic system. Skin is fragile, is thin, Skin is dry, Skin is normal, Skin temperature is warm. Musculoskeletal: No deficits noted. Circulation, motion, and sensation intact. Range of motion: intact in all extremities, Reports generalized weakness. Historical: - Allergies: 22:40 Morphine; lg3 22:40 meperidine HCl (rash); lg3 22:40 Demerol; lg3 - Home Meds: 22:40 Unable to obtain [Active]; lg3 - PMHx: 22:40 ADD/ADHD; Depression; DM chemical induced; giant cell arteritis; Giant Cell Arthritis; lg3 Hyperlipidemia; Hypertension; Hypothyroidism; Myocardial infarction; renal cell carcinoma; renal cell carcinoma contained; stage 3 kidney failure; - PSHx: 22:40 Cholecystectomy; hysterectomy; right nephrectomy; gastric bypass; lg3 - Immunization history:: Adult Immunizations up to date. - Social history:: Smoking status: Patient denies any tobacco usage or history of. Patient/guardian denies using alcohol, street drugs. Screenin:11 [facility] ED Fall Risk Assessment (Adult) History of falling in the last 3 months, me1 including since admission Yes- single mechanical fall (1 pt) Confusion or Disorientation No (0 pts) Intoxicated or Sedated No (0 pts) Impaired Gait No (0 pts) Mobility Assist Device Used No (0 pt) Altered Elimination No (0 pt) Score/Fall Risk Level 0 - 2 = Low Risk. Abuse screen: Denies threats or abuse. Nutritional screening: No deficits noted. Tuberculosis screening: No symptoms or risk factors identified. Assessment: 23:11 General: Appears uncomfortable, well groomed, well developed, well nourished, Behavior me1 is calm, cooperative, appropriate for age, Reports fatigue for nausea, dizzy, lightheaded with mucus like stool that started early this afternoon. Recently on antibiotics for UTI. PCP did another UA and called patient to stop antibiotic. Denies fever, chills. Pain: Denies pain. Neuro: Level of Consciousness is awake, alert, obeys commands, Oriented to person, place, time, situation, Appropriate for age. Cardiovascular: Capillary refill < 3 seconds Patient's skin is warm and dry. Respiratory: Airway is patent Respiratory effort is even, unlabored, Respiratory pattern is regular, symmetrical. GI: Reports diarrhea, nausea, since this afternoon. Diarrhea has a lot of mucus in it. 05/07 01:00 General: Appears in no apparent distress. comfortable, Behavior is calm, cooperative, lg3 appropriate for age. Pain: Denies pain. Neuro: Galarza Agitation-Sedation Scale (RASS): 0 - Alert and Calm Level of Consciousness is awake, alert, obeys commands, Oriented to person, place, time, situation, Reports dizziness, weakness. Cardiovascular: No deficits noted. Respiratory: No deficits noted. Airway is patent Respiratory effort is even, unlabored, Respiratory pattern is regular, symmetrical. GI: No deficits noted. Abdomen is round non-distended, obese, Reports nausea. : No deficits noted. No signs and/or symptoms were reported regarding the genitourinary system. EENT: No deficits noted. No signs and/or symptoms were reported regarding the EENT system. Derm: Skin is fragile, is thin, Skin is dry, Skin is normal, Skin temperature is warm. Musculoskeletal: No deficits noted. Circulation, motion, and sensation intact. Range of motion: intact in all extremities, Reports generalized weakness. 03:15 Reassessment: Patient appears in no apparent distress at this time. No changes from lg3 previously documented assessment. Patient and/or family updated on plan of care and expected duration. Pain level reassessed. Patient is alert, oriented x 3, equal unlabored respirations, skin warm/dry/pink. Vital Signs: 05/06 22:34 BP 135 / 66; Pulse 86; Resp 17 S; Temp 97.8(O); Pulse Ox 96% on R/A; Weight 63.5 kg lg3 (R); Height 5 ft. 0 in. (R); 05/07 01:00 BP 150 / 69; Pulse 72; Resp 15 S; Pulse Ox 96% on R/A; lg3 03:15 BP 145 / 53; Pulse 78; Resp 16 S; Pulse Ox 96% on R/A; lg3 05/06 22:34 Body Mass Index 27.34 (63.50 kg, 152.4 cm) lg3 ED Course: 05/06 22:27 Patient arrived in ED. jj6 22:40 Triage completed. lg3 22:40 Arm band placed on right wrist. lg3 22:46 New Shen MD is Attending Physician. cheri 23:06 Nancy Li, CONCETTA is Primary Nurse. me1 23:11 Patient has correct armband on for positive identification. Bed in low position. Call me1 light in reach. Side rails up X2. Provided Education on: POC. Verbalized understanding.. 23:11 No provider procedures requiring assistance completed. me1 23:21 XRAY Chest (1 view) In Process Unspecified. EDMS 23:33 Urinalysis w/ reflexes Sent. me1 09 00:06 Inserted saline lock: 22 gauge in right wrist, using aseptic technique. me1 00:06 Lactate w/ 2H reflex if indic. Sent. me1 00:06 Blood Culture Adult (2) Sent. me1 00:06 Lipase Sent. me1 00:14 Report received from CONCETTA Cruz. lg3 01:00 Client placed on continuous cardiac and pulse oximetry monitoring. NIBP monitoring lg3 applied. groundwater monitoring technician on. Door closed. Noise minimized. Warm blanket given. Family accompanied patient. 01:03 Toby Parks MD is Hospitalizing Provider. cheri 01:47 CT Chest, Abdomen, Pelvis - W/Contrast In Process Unspecified. EDMS 03:27 Patient admitted, IV remains in place. intact, No redness/swelling at site. lg3 Administered Medications: 00:23 Drug: NS 0.9% IV 500 ml IV at bolus once Route: IV; Rate: bolus; Site: right wrist; me1 01:36 Follow up: IV Status: Completed infusion; IV Intake: 500ml lg3 00:23 Drug: Rocephin IV 1 grams IV at per protocol once; Given slow IV push per pharmacy me1 instructions Route: IV; Rate: per protocol; Site: right antecubital; 03:16 Follow up: Response: No adverse reaction; IV Status: Completed infusion; IV Intake: [id number] 01:34 Drug: Potassium PO Effervescent Tablet 25 mEq PO once; dissolve in 4 ounces of water or lg3 juice Route: PO; 03:16 Follow up: Response: No adverse reaction lg3 01:36 Drug: NS 0.9% IV 1000 ml IV at 125 ml/hr continuous Route: IV; Rate: 125 ml/hr; Site: lg3 right wrist; 02:04 Drug: Ondansetron IVP 4 mg IVP once; over 2 minutes Route: IVP; Site: right wrist; 3 03:16 Follow up: Response: No adverse reaction lg3 Medication: 05/06 23:11 VIS not applicable for this client. me1 Intake: 05/07 01:36 IV: 500ml; Total: 500ml. lg3 03:16 IV: 10ml; Total: 510ml. lg3 Outcome: 01:06 Decision to Hospitalize by Provider. cheri 03:26 Admitted to Med/surg accompanied by tech, via wheelchair, room 207, Report called to [facility] Bianca 03:26 Condition: stable 03:38 Patient left the ED. lg3 Signatures: Dispatcher [employer] EDNew Zaldivar MD MD cha Gibson, Lacie, RN RN lg3 Giulia Richardson Michelle, CONCETTA RN az1
[2023-05-07 01:11] LABS: Albumin 2.5 g/dL (3.4-5.0); Bilirubin Direct 0.2 mg/dL (0-0.2); Bilirubin Indirect, Calculated 0.2 mg/dL (0.2-0.8); Bilirubin Total 0.4 mg/dL (0.2-1.0); Potassium 3.4 mEq/L (3.5-5.1); Troponin High Sensitivity 13.8 pg/mL (<58.9)
[2023-05-07] MEDS ORDERED: POTASSIUM 25 MEQ EFFERV TAB ONE (01:38)
[2023-05-07] MEDS ORDERED: ONDANSETRON 4 MG/2 ML VIAL ONE (02:11)
[2023-05-07 02:44] LABS: Protime INR 0.93
[2023-05-07] MEDS ORDERED: ONDANSETRON 4 MG/2 ML VIAL IV PRN (03:57)
[2023-05-07] MEDS ORDERED: ACETAMINOPHEN 325 MG TABLET PO PRN (03:57)
[2023-05-07] MEDS: NA CHLORIDE 0.9% 1,000 ML IV SCH ×2 (04:24→14:00)
[2023-05-07 06:15] VITALS: BMI 27.3
--- OUTSIDE RECORDS SUMMARY | 2023-05-07 07:23 | XMS REPORT | Continuity of Care Document ---
:1940 Author Organization [facility] t Address [address] [facility] [address] [place] [address] Care Team Providers Name Role Phone JAIME [...] Date Expiration Date S natalya UNITED MEDICARE [id number] 2019 O 00:00:00 CDC REVIEW [id number] 2020 00:00:00 Problems Condition Condition Condition Status Onset Resolution Last Treating Co mments Source Name Details Category Date Date Treatment Clinician Date Bright red Bright red Disease Active 2019- [facility] blood per blood per 05-14 [facility] rectum rectum 00:00: Medical 00 [place] Colitis Colitis Disease Active 2019-[address] [facility] 00 [place] Meningioma Meningioma Disease Recurre [facility] 00 [place] Dehydratio Dehydratio Disease Active 2019-[address] n n 04[facility]24 [facility] 00:[facility]: Medical [place] Elevated Elevated Disease Active 2019- [facility] [...] moria urinary urinary 13:10:14 l tract tract Point infection infection (disorder) (disorder) Active Problem 03/18/2019 [facility] 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 13:10:14 l (disorder) arteritis Her amaya (disorder) Active Problem 03/18/2019 [facility] Headache Headache Problem Active 2019-03-18 Memoria (finding) (finding) 13:10:14 l Active Point Problem 03/18/2019 [facility] 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 13:10:14 l (finding) (finding) Mukul jorje Active Problem 03/18/2019 [facility] Neuropathy Problem [...] adverse 00:00: Medical reaction 00 Center s NO KNOWN Allergy Active [facility] S morphine morphine Active Memori a l Juanjo Demerol Demerol Active Memoria l Juanjo Family History Family Member Diagnosis Comments Start Date Stop Date Source Natural brother Cancer [facility] Natural father Cancer [facility] Natural mother Diabetes [facility] Natural mother Heart disease [facility] Natural sister Breast cancer [facility] Natural sister Cancer [facility] Social History Social Habit Start Date [...] non-user Medical Center Social History 2018-06-12 2018-06-[address] [facility] annelise 14:22:19 14:22:19 Sex Ass[birth year] At [birth year] [facility] 00[facility]00 [facility] Smoking Status Start Date Stop Date Source Never smoked tobacco [facility] Medications Ordered Filled Start Stop Current [...] Me dical 0.05 % 43 as needed. [place] ophthalmic emulsion alpha 2020-0 Yes 1{tbl} QD Take [address] [facility] [address] lipoic acid 9-28 tablet by Vikram es 600 mg Cap 21:06: mouth Medica l 43 daily. [place] calcium 2020-0 Yes 1{tbl} QD Take [address] [facility] [address] carbonate-v 9-28 tablet by Vikram es itamin D3 21:06: mouth Medical (CALCIUM- 43 daily. [place] TAMIN D) 500 mg(1,250mg) -200 unit per tablet aspirin 81 2020-0 Yes 1{tbl} QD Take [address] [facility] MG EC 9-28 tablet by [facility] tablet 21:06: mouth Medical 43 daily. [place] nitroglycer 2020-0 Yes 1{tbl} Place 1 C [...] D3 21:06: mouth Medical (CALCIUM- 43 daily. [place] TAMIN D) 500 mg(1,250mg) -200 unit per tablet aspirin 81 2020-0 Yes 1{tbl} QD Take [address] [facility] MG EC 9-28 tablet by [facility] tablet 21:06: mouth Medical 43 daily. [place] nitroglycer 2020-0 Yes 1{tbl} Place 1 C [...] Me dical 0.05 % 43 as needed. [place] ophthalmic emulsion alpha 2020-0 Yes 1{tbl} QD Take [address] lipoic acid 9-28 tablet by Vikram es 600 mg Cap 21:06: mouth Medica l 43 daily. Center calcium 2020-0 Yes 1{tbl} QD Take [address] carbonate-v 9-28 tablet by Vikram es itamin D3 21:06: mouth Medical (CALCIUM- 43 daily. [place] TAMIN D) 500 mg(1,250mg) -200 unit per [...] . needles, 2020-0 Yes 1 box by [employer] S t insulin 9-07 [facility] disposable [...] . needles, 2020-0 Yes 1 box by [employer] S t insulin 9-07 [facility] disposable [...] 00:00: mouth Medic al LEVOTHROID) 00 daily. [place] 75 MCG tablet losartan 2020-0 Yes 1{tbl} QD Take 1 [facility] (COZAAR) 3-20 tablet by [facility] 100 MG 00:00: mouth Medical tablet 00 daily. [place] levothyroxi 2020-0 Yes 1{tbl} QD Take [address] ne 3-20 tablet by [facility] (SYNTHROID, 00:00: mouth Medic al LEVOTHROID) 00 daily. [place] 75 MCG tablet losartan 2020-0 Yes 1{tbl} QD Take 1 [facility] (COZAAR) 3-20 tablet by [facility] 100 MG 00:00: mouth Medical tablet 00 daily. Center levothyroxi 2020-0 Yes 1{tbl} QD Take [address] ne 3-20 tablet by [facility] (SYNTHROID, 00:00: mouth Medic al LEVOTHROID) 00 daily. [place] 75 MCG tablet losartan 2020-0 Yes 1{tbl} QD Take 1 [facility] (COZAAR) 3-20 tablet by [facility] 100 MG 00:00: mouth Medical tablet 00 daily. [place] levothyroxi 2020-0 Yes 1{tbl} QD Take [address] ne 3-20 tablet by [facility] (SYNTHROID, 00:00: mouth Medic al LEVOTHROID) 00 daily. [place] 75 MCG tablet losartan 2020-0 Yes 1{tbl} QD Take 1 [facility] (COZAAR) 3-20 tablet by [facility] 100 MG 00:00: mouth Medical tablet 00 daily. [place] diltiazem 2019-0 Yes 1{tbl} QD Take [address] (DILT-XR) 2-11 tablet by [facility] 180 mg 24 00:00: mouth Medical hr capsule 00 nightly. [place] noriega diltiazem 2019-0 Yes 1{tbl} QD Take [address] (DILT-XR) 2-11 tablet by [facility] 180 mg 24 00:00: mouth Medical hr capsule 00 nightly. [place] noriega diltiazem 2019-0 Yes 1{tbl} QD Take [address] (DILT-XR) 2-11 tablet by [facility] 180 mg 24 00:00: mouth Medical hr capsule 00 nightly. [place] noriega diltiazem 2019-0 Yes 1{tbl} QD Take 1 [...] Juanjo capsule 00 qhs, 0 Refill(s) Nortriptyli 2018-0 Yes PO, Memori a ne 5-28 Bedtime, 0 l 15:03: Refill(s) Juanjo Nortriptyli Yes PO, Memori a ne 5-28 Bedtime, 0 l 15:03: Refill(s) Point Nortriptyli 2018- Yes PO, Memori a ne 5-28 Bedtime, 0 l 15:03: Refill(s) Nortriptyli Yes PO, Memori a ne 01-12 Bedtime, 0 l 15:03: Refill(s) Yes 250 mg = 1 Memori a Divalproex 5-01 tab, PO, l Sodium 250 15:11: Bedtime, # H ermann MG Extended 30 tab, 3 Release Refill(s), Tablet Pharmacy: [[facility] Yes 250 mg = 1 Memori a Divalproex 5-01 tab, PO, l Sodium 250 15:11: Bedtime, # H ermann MG Extended 30 tab, 3 Release Refill(s), Tablet Pharmacy: [[facility] Yes 250 mg = 1 Memori a Divalproex 5-01 tab, PO, l Sodium 250 15:11: Bedtime, # H ermann MG Extended 30 tab, 3 Release Refill(s), Tablet Pharmacy: [[facility] Yes 250 mg = 1 Memori a Divalproex 5-01 tab, PO, l Sodium 250 15:11: Bedtime, # H ermann MG Extended 30 tab, 3 Release Refill(s), Tablet Pharmacy: [[facility]] [facility] ksbital Yes = 1 tab, Mem oria 5-01 PO, 0 l 14:28: Refill(s) albital Yes = 1 tab, Mem oria 5-01 PO, 0 l 14:28: Refill(s) albital Yes = 1 tab, Mem oria 5-01 PO, 0 l 14:28: Refill(s) butalbital Yes = 1 tab, Mem oria 5-01 PO, 0 l 14:28: Refill(s) Memantine Yes 10 mg = 2 Mem oria hydrochlori 1-11 tab, PO, l de 5 MG 17:46: BID, # 120 Herm jorje Oral Tablet 00 tab, 3 [Namenda] Refill(s), Pharmacy: [facility] Memantine Yes 10 mg = 2 Mem oria hydrochlori 1-11 tab, PO, l de 5 MG 17:46: BID, # 120 Herm jorje Oral Tablet 00 tab, 3 [Namenda] Refill(s), Pharmacy: [facility] Memantine Yes 10 mg = 2 Mem oria hydrochlori 1-11 tab, PO, l de 5 MG 17:46: BID, # 120 Herm jorje Oral Tablet 00 tab, 3 [Namenda] Refill(s), Pharmacy: [facility] Memantine Yes 10 mg = 2 Mem oria hydrochlori 1-11 tab, PO, l de 5 MG 17:46: BID, # 120 Herm jorje Oral Tablet 00 tab, 3 [Namenda] Refill(s), Pharmacy: [facility] 0.9 ML Yes 162 mg, Memoria [...] n [Topamax] 52 tab, 3 Refill(s), Pharmacy: [facility] topiramate 2017-08 No 25 mg = 1 Me moria 25 MG Oral 1-30 tab, PO, l Tablet 16:56: BID, # 60 [place] n [Topamax] 52 tab, 3 Refill(s), Pharmacy: [facility] topiramate 2017-08 No 25 mg = 1 Me moria 25 MG Oral 1-30 tab, PO, l Tablet 16:56: BID, # 60 [place] n [Topamax] 52 tab, 3 Refill(s), Pharmacy: [facility] topiramate 2017-08 No 25 mg = 1 Me moria 25 MG Oral 1-30 tab, PO, l Tablet 16:56: BID, # 60 [place] n [Topamax] 52 tab, 3 Refill(s), Pharmacy: [facility] Insulin 2017-08 Yes See Memoria Glargine 1-30 Instructio l 100 UNT/ML 16:33: ns, SUB-Q He rmann Injectable 00 PRN, 0 Solution Refill(s) [Lantus] Tramadol 2017-08 Yes 50 mg, PO, Mem oria 1-30 PRN, PRN l 16:33: Pain Juanjo Insulin 2017-08 Yes See Memoria Glargine 1-30 Instructio l 100 UNT/ML 16:33: ns, SUB-Q He rmann Injectable 00 PRN, 0 Solution Refill(s) [Lantus] Tramadol 2017-08 Yes 50 mg, PO, Mem oria 1-30 PRN, PRN l 16:33: Pain [place] Insulin 2017-08 Yes See Memoria Glargine 1-30 Instructio l 100 UNT/ML 16:33: ns, SUB-Q He rmann Injectable 00 PRN, 0 Solution Refill(s) [Lantus] Tramadol 2017-08 Yes 50 mg, PO, Mem oria 1-30 PRN, PRN l 16:33: Pain Juanjo Insulin 2017-08 Yes See Memoria Glargine 1-30 Instructio l 100 UNT/ML 16:33: ns, SUB-Q He rmann Injectable 00 PRN, 0 Solution Refill(s) [Lantus] Tramadol 2017-08 Yes 50 mg, PO, Mem oria 1-30 PRN, PRN l 16:33: Pain [place] topiramate 2017-08 No 25 mg = 1 Me moria 25 MG Oral 0-26 tab, PO, l Tablet 15:13: Bedtime, # Abigail nn [Topamax] 00 30 tab, 3 Refill(s), Pharmacy: [facility] topiramate 2017-08 No 25 mg = 1 Me moria 25 MG Oral 0-26 tab, PO, l Tablet 15:13: Bedtime, # Abigail nn [Topamax] 00 30 tab, 3 Refill(s), Pharmacy: [facility] topiramate 2017-08 No 25 mg = 1 Me moria 25 MG Oral 0-26 tab, PO, l Tablet 15:13: Bedtime, # Abigail nn [Topamax] 00 30 tab, 3 Refill(s), Pharmacy: [facility] topiramate 2017-08 No 25 mg = 1 Me moria 25 MG Oral 0-26 tab, PO, l Tablet 15:13: Bedtime, # Abigail nn [Topamax] 00 30 tab, 3 Refill(s), Pharmacy: [facility] Sertraline 2017-08 Yes 100 mg, Cresencio joy 0-26 PO, Daily, l 13:58: 0 Refill(s) Cranberry 2017-08 Yes 4,200 mg Cresencio joy 0-26 =, PO, l 13:58: Daily, 0 Point 00 Refill(s) Vitamin D3 2017-08 Yes 1, [...] ia 0-26 PO, Daily, l 13:58: 0 Point 00 Refill(s) Furosemide 2017-08 Yes 20 mg, PO, M emoria 0-26 PRN, 0 l 13:58: Refill(s) Juanjo 00 Lyrica 2017-08 Yes 25 mg, PO, Memor [...] a 0-26 PO, Daily, l 13:58: 0 [place] 00 Refill(s) Aspirin 2017-08 Yes 81 mg, PO, [...] 0-26 =, PO, l 13:58: Daily, 0 [place] 00 Refill(s) Vitamin D3 2017-08 Yes 1, PO, Memor ia 0-26 Daily, 0 l 13:58: Refill(s) Prednisone 2017-08 Yes 15 mg, PO, M emoria 0-26 Daily, l 13:58: Quantity sufficient , 0 Refill(s) Famotidine 2017-08 Yes 40 mg = 2 Me moria 20 MG Oral 0-26 tab, PO, l Tablet 13:58: Daily, 0 [place] 00 Refill(s) Amoxicillin 2017-08 No 2, PO, [...] tab, PO, l Tablet 13:58: Daily, 0 [place] 00 Refill(s) Amoxicillin 2017-08 No 2, PO, [...] 0-26 SL, PRN, 0 l 13:58: Refill(s) sertraline Yes [...] kg Height 2019-01-12 14:51:00 149.86 cm [facility] BMI Calculated 2019-01-12 14:51:00 Memori al Juanjo Weight 2019-01-12 14:51:00 [facility] Heart Rate 2019-01-12 14:51:00 [facility] [place] Respitory Rate 2019-01-12 14:51:00 Memori al Juanjo Systolic (mm Hg) 2019-01-12 14:51:00 Cresencio rial [place] Diastolic (mm Hg) 2019-01-12 14:51:00 Mem orial Juanjo BMI Calculated 2018-12-16 14:12:00 Memori al Juanjo Weight 2018-12-16 14:12:00 [facility] Height 2018-12-16 14:12:00 152.4 cm [facility] [place] Respitory Rate 2018-12-16 14:12:00 Memori al Juanjo Heart Rate 2018-12-16 14:12:00 [facility] Systolic (mm Hg) 2018-12-16 14:12:00 Cresencio rial [place] Diastolic (mm Hg) 2018-12-16 14:12:00 Mem orial [place] BMI Calculated 2018-08-28 17:21:00 Memori al [place] Weight 2018-08-28 17:21:00 [facility]jo Height 2018-08-28 17:21:00 152.4 cm [facility] Respitory Rate 2018-08-28 17:21:00 Memori al Juanjo Systolic (mm Hg) 2018-08-28 17:21:00 Cresencio rial Juanjo Diastolic (mm Hg) 2018-08-28 17:21:00 Mem orial [place] Heart Rate 2018-08-28 17:21:00 [facility]jo BMI Calculated 2018-07-17 16:27:00 Memori al [place] Weight 2018-07-17 16:27:00 [facility] [place] Height 2018-07-17 16:27:00 149.86 cm [facility] [place] Systolic (mm Hg) 2018-07-17 16:27:00 Cresencio rial Juanjo Diastolic (mm Hg) 2018-07-17 16:27:00 Mem orial [place] Heart Rate 2018-07-17 16:27:00 Milad Geiger BMI Calculated 2018-06-12 13:52:00 Kar Figueroa Weight 2018-06-12 13:52:00 [facility] [place] Height 2018-06-12 13:52:00 152.4 cm [facility] Heart Rate 2018-06-12 13:52:00 [facility] Systolic (mm Hg) 2018-06-12 13:52:00 Cresencio rial Juanjo Diastolic (mm Hg) 2018-06-12 13:52:00 Mem orial Juanjo Procedures Procedure Date / Time Performed Performing Clinician [facility] e Laser eye surgery [facility] nn Nephrectomy [facility] Temporal artery biopsy [facility] Plan of Care Planned Activity Planned Date Details Comments Source Future Scheduled 2023-04-18 Influenza Vaccine (#1) [facility] 00:[facility]:00 [code = Influenza Medical Ce nter Vaccine (#1)] Future Scheduled 2023-04-[address] [...] screening for [facility] Test 00:00:00 [facility] (procedure) Medical [place] [code = 692234130] Future Scheduled 2021-01-20 Urine screening for [facility] Test 00:00:00 protein (procedure) [facility] Center [code = 408429665] Future Scheduled 2021-01-20 Urine screening for [facility] Test 00:00:00 protein (procedure) Medical Center [code = 531893537] Future Scheduled 2021-01-20 Urine screening for [facility] Test 00:00:00 protein (procedure) Medical Center [code = 981646765] Future Scheduled 2020-11-[address] [facility] Test 00:00:00 [facility] (procedure) [code = 32553942] Future Scheduled 2020-11-[address] [facility] Test 00:00:00 [facility] (procedure) [code = 00820279] Future Scheduled 2020-11-[address] [facility] Test 00:00:00 measurement Medical Center (procedure) [code = 42419365] Future Scheduled 2020-11-[address] [facility] Test 00:00:00 measurement Medical Center (procedure) [code = 58675604] Future Scheduled 2020-07-[address] [...] VACCINES (1 of 2)] Future Scheduled 1960 SHINGLES VACCINES (1 CHI [...] 00:00:00 examination Medical Center (regime/therapy) [code = 959479139] Future Scheduled [address] EYE EXAM [facility] Test 00:00:00 [code = DIABETIC EYE Medical Center EXAM] Future Scheduled [address] [facility] Test 00:00:00 examination Medical Center (regime/therapy) [code = 361616852] Future Scheduled 1950 DIABET[address] EYE EXAM [facility] Test 00:00:00 [code = DIABETIC EYE Medical Center EXAM] Future Scheduled [address] [facility] Test 00:00:00 examination Medical Center (regime/therapy) [code = 218401556] Future Scheduled 1950 DIABETIC EYE EXAM [facility] Test 00:00:00 [code = DIABETIC EYE Medical Center EXAM] Future Scheduled [address] [facility] Test 00:00:00 examination Medical Center (regime/therapy) [code = 440572346] Future Scheduled 1947 PNEUMOCOCCAL 65+ YRS [facility] [...] [facility] 00:[facility]:00 SCAN] [facility] Future Scheduled 1940 DXA SCAN [code = DXA [facility] Test 00:00:00 SCAN] [facility] Future Scheduled 1940 DXA SCAN [code = DXA [facility] Test 00:00:00 SCAN] [facility] Future Scheduled 1940 DXA SCAN [code = DXA [facility] Test 00:00:00 SCAN] [facility] Encounters Start End Encounter Admission Attending Care Care Encounter Source Date/Time Date/Time Type Type Clinicians Facility Department ID 2021-05-23 Inpatient ER [facility] [id number] SLE 08:28:59 JAIME 2021-05-23 [id number] SLE 07:11:14 , CHECO Med 2020-04-21 Inpatient ER [facility] [id number] SLE 17:35:00 KATHRIN 2020-03-31 Inpatient ER ANNE AGUIRRE [facility] [id number] SLE 07:46:00 JAIME 2019-01-12 2019-01-13 Outpatient nullFlavo MNA [id number] Memoria 14:30:00 04:59:59 r Neurology 05 ashley Geiger 2019-01-12 2019-01-13 Outpatient nullFlavo MNA [id number] Memoria 14:30:00 04:59:59 r Neurology 05 ashley Rustonandriy Gilmanann 2019-01-12 2019-01-12 Outpatient Shelby MHMISCHER MHMISCHER [id number] 09:30:00 23:59:59 Slade Daily Ray 2019-01-12 2019-01-12 Outpatient MHIE MHIE [id number] Memoria 09:30:00 09:30:00 05 ashley Geiger 2018-12-22 2018-12-24 Phone nullFlavo MNA [id number] Memoria 20:13:43 04:59:59 Message r Neurology 01 ashley Geiger 2018-12-22 2018-12-24 Phone nullFlavo MNA [id number] Memoria 20:13:43 04:59:59 Message r Neurology 01 ashley Gilmanann 2018-12-22 2018-12-23 Outpatient MHMISCHER MHMISCHER [id number] 15:13:43 23:59:59 2018-12-16 2018-12-17 Outpatient nullFlavo MNA [id number] Memoria 14:00:00 04:59:59 r Neurology 04 l Ruston Juanjo 2018-12-16 2018-12-17 Outpatient nullFlavo MNA [id number] Memoria 14:00:00 04:59:59 r Neurology 04 l [place] 2018-12-16 2018-12-16 Outpatient JOAN RyanHISCHER MHMISCHER [id number] 09:00:00 23:59:59 Slade Deandre Ray 2018-12-16 2018-12-16 Outpatient MHIE MHIE [id number] Memoria 09:00:00 09:00:00 04 ashley Geiger 2018-10-30 2018-10-30 Outpatient MHIE MHIE [id number] Memoria 10:00:00 10:00:00 03 ashley Geiger 2018-10-30 2018-10-30 Outpatient MHIE MHIE [id number] Memoria 10:00:00 10:00:00 03 l Juanjo 2018-08-28 2018-08-29 Outpatient nullFlavo MNA [id number] Memoria 16:45:00 05:59:59 r Neurology 02 l Wendy Geiger 2018-08-28 2018-08-29 Outpatient nullFlavo MNA [id number] Memoria 16:45:00 05:59:59 r Neurology 02 l Wendy Geiger 2018-08-28 2018-08-28 Outpatient Shelby, RUSTSCHER MHMISCHER [id number] 10:45:00 23:59:59 Slade 02 Ray 2018-08-28 2018-08-28 Outpatient MHIE MHIE [id number] Memoria 10:45:00 10:45:00 02 ashley Geiger 2018-08-05 2018-08-07 Outside nullFlavo MNA [id number] Memoria 21:20:00 05:59:59 Medical r Neurology 00 l Records Wendy Geiger 2018-08-05 2018-08-07 Outside nullFlavo MNA [id number] Memoria 21:20:00 05:59:59 Medical r Neurology 00 l Records Wendy Geiger 2018-08-05 2018-08-06 Outpatient MHMISCHER MHMISCHER [id number] 15:20:00 23:59:59 00 2018-07-17 2018-07-18 Outpatient nullFlavo MNA [id number] Memoria 16:15:00 05:59:59 r Neurology 01 l Wendy Geiger 2018-07-17 2018-07-18 Outpatient nullFlavo MNA [id number] Memoria 16:15:00 05:59:59 r Neurology 01 l Wendy Geiger 2018-07-17 2018-07-17 Outpatient Shelby RUSTSCHER MHMISCHER [id number] 10:15:00 23:59:59 Slade Karan Ray 2018-07-17 2018-07-17 Outpatient MHIE MHIE [id number] Memoria 10:15:00 10:15:00 01 ashley Juanjo 2018-06-12 2018-06-13 Outpatient nullFlavo MNA [id number] Memoria 14:00:00 04:59:59 r Neurology 00 l Wendy Gilmanann 2018-06-12 2018-06-13 Outpatient nullFlavo MNA [id number] Memoria 14:00:00 04:59:59 r Neurology 00 ashley Geiger 2018-06-12 2018-06-12 Outpatient ROSAMARIA Ryan [id number] 09:00:00 23:59:59 Slade 00 Ray 2018-06-12 2018-06-12 Outpatient OUSMANE ROMEO [id number] Memoria 09:00:00 09:00:00 00 ashley Geiger Results Test Description Test Time Test Comments Results Result Comments Source POCT-GLUCOSE METER 2020-05-15 12:07:00 Test Item Value Reference Range Interpretation Comme nts POC-GLUCOSE METER (BEAKER) 145 mg/dL 70-110 H : TESTED AT [address] (test code = 1538) [place] [address]: 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 sebastian ID = [id number] for JAYSON OVIEDO SARS-COV2/RT-PCR ([facility])2020-05-15 10:07:00 Test Item Value Reference Range Interpretation Comments SARS-COV2/RT-PCR (test Negative Not Detected, Negative, code = 1844045) See external report for linked test SARS-COV-2 PERFORMING LAB [facility] (test code = 1574131) Negative result for this test determines that [...] of the Act.Fact Sheet for Healthcare Prov iders:https://www.[employer]/sites/default/files/product/documents/Fact_Sheet_HC _Kfmdoiapc_Lkyj_BQLX-LxY-9.pdfFact Sheet for Healthcare Patients:https://www.[employer]/sites/default/files/product/docume nts/Ucfm_Qawnr_Fubnjcyb_Arrb_QMJU-TbQ-4.pdfPerforming Laboratory:[facility], [place] [id number] METER 2020-05-15 07:57:00 Test Item Value Reference Range Interpretation Comments POC-GLUCOSE METER 145 mg/dL 70-110 H : TESTED A T [facility] 6720 (BEAKER) (test code = JEANE Noriega [facility], 1538) [address]: 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 sebastian ID = [id number] for RUDDY STUBBS BASIC METABOLIC [id number] 06:06:00 Test Item Value Reference Range Interpretation [...] S NOT APPLICABLE FOR DIALYSIS PATIEN TS. [employer] ID - PIAYA LSpecimen slightly ictericCBC (HEMOGRAM [...] WBC 0-0 (test code = 413) POCT-GLUCOSE [id number] 21:59:00 Test Item Value Reference Range Interpretation Comments POC-GLUCOSE METER 129 mg/dL 70-110 H : TESTED A T [facility] 6720 (BEAKER) (test code = JEANE [place], 1538) [address]: 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 sebastian ID = [id number] for ANDREW QAMARTHAD RODRIGUEZ POCT-GLUCOSE [id number] 21:20:00 Test Item Value Reference Range Interpretation Comments POC-GLUCOSE METER 68 mg/dL 70-110 L : TESTED A T [facility] 6720 (BEAKER) (test code = JEANE Noriega [place], 1538) [address]: 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 sebastian ID = [id number] for THAD ARROYO HEMOGLOBIN AND [id number] 16:58:00 Test Item Value Reference Range Interpretation Comments HEMOGLOBIN (BEAKER) (test code = 12.1 GM/DL 11.2-15.7 410) HEMATOCRIT (BEAKER) (test code = 36.7 % 34.1-44.9 411) [employer] ID - [id number] 10:03:00 Test Item Value Reference Range Interpretation Comments HEMOGLOBIN A1C (BEAKER) (test code = 8.4 % 4.3-6.1 H 368) HEMOGLOBIN AND [id number] 09:18:00 Test Item Value Reference Range Interpretation Comments HEMOGLOBIN (BEAKER) (test code = 12.8 GM/DL 11.2-15.7 410) HEMATOCRIT (BEAKER) (test code = 38.7 % 34.1-44.9 411) [employer] ID - [id number] AND PARASITE [id number] 12:20:00 Test Item Value Reference Range Interpretation [...] (test seen seen code = 248) BLOOD [id number] 08:00:00 Test Item Value Reference Range Interpretation Comments CULTURE (BEAKER) (test No growth in 5 days code = 1095) BLOOD [id number] 08:00:00 Test Item Value Reference Range Interpretation Comments CULTURE (BEAKER) (test No growth in 5 days code = 1095) STOOL CULTURE + SHIGA [id number] 11:02:00 Test Item Value Reference Range Interpretation Comments CULTURE (BEAKER) No Salmonella, Shigella (test code = 1095) or Campylobacter isolated POCT-GLUCOSE [id number] 12:51:00 Test Item Value Reference Range Interpretation Comments POC-GLUCOSE METER 255 mg/dL 70-110 H : Notified RN/MD: (BEAKER) (test code = TESTED AT [facility] 6720 1538) [facility], [address]: 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 sebastian ID = [id number] for AN KAITLIN POLLARD POCT-GLUCOSE [id number] 08:22:00 Test Item Value Reference Range Interpretation Comments POC-GLUCOSE METER 197 mg/dL 70-110 H : TESTED A T [facility] 6720 [facility] (test code = [facility], 1538) [address]: 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 sebastian ID = [id number] for AN KAITLIN POLLARD BASIC METABOLIC [id number] 05:46:00 Test Item Value Reference Range Interpretation [...] S NOT APPLICABLE FOR DIALYSIS PATIEN TS. [employer] ID - EVELIA MSpecimen slightly ictericPOCT-GLUCOSE [id number] 22:22:00 Test Item Value Reference Range Interpretation Comments POC-GLUCOSE METER 323 mg/dL 70-110 H : [facility] (test code = [facility], 1538) [address]: 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 sebastian ID = [id number] for Wi Tai longoria POCT-GLUCOSE [id number] 17:46:00 Test Item Value Reference Range Interpretation Comments POC-GLUCOSE METER 245 mg/dL 70-110 H : TESTED A T [facility] 6720 (BEAKER) (test code = JEANE Noriega [facility], 1538) [address]: 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 sebastian ID = [id number] for TAYLOR KEANE POCT-GLUCOSE [id number] 12:12:00 Test Item Value Reference Range Interpretation Comments POC-GLUCOSE METER 317 mg/dL 70-110 H : TESTED A T [facility] 6720 (BEAKER) (test code = JEANE Noriega [facility], 1538) 936[address]: 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 ID = [id number] for TAYLOR KEANE SHIGA TOXIN [id number] 10:32:00 Test Item Value Reference Range Interpretation Comments SHIGA TOXIN 1 (BEAKER) (test Not detected Not detected code = 2177) SHIGA TOXIN 2 (BEAKER) (test Not detected Not detected code = 2179) STOOL PATH [id number] 10:15:00 Test Item Value Reference Range Interpretation Comments PATHOGEN EXAM CHARGED (BEAKER) (test Done code = 2381) POCT-GLUCOSE [id number] 08:57:00 Test Item Value Reference Range Interpretation Comments POC-GLUCOSE METER 205 mg/dL 70-110 H : TESTED A T [facility] 6720 (BEAKER) (test code = JEANE Noriega [facility], 1538) 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 ID = [id number] for Karla Jackson POCT-GLUCOSE [id number] 17:45:00 Test Item Value Reference Range Interpretation Comments POC-GLUCOSE METER 306 mg/dL 70-110 H : TESTED A T [facility] 6720 (BEAKER) (test code = [facility], 1538) 93582: 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 sebastian ID = [id number] for DI EPSTEIN POCT-GLUCOSE [id number] 11:59:00 Test Item Value Reference Range Interpretation Comments POC-GLUCOSE METER 150 mg/dL 70-110 H : TESTED A T [facility] 6720 (BEAKER) (test code = [facility], 1538) 27735: 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 sebastian ID = [id number] for DI EPSTEIN [id number] 10:18:00 Test Item Value Reference Range Interpretation Comments POTASSIUM (BEAKER) 4.9 meq/L 3.5-5.1 Specimen slightly (test code = 379) hemolyzed [employer] ID - EVELIA MPOCT-GLUCOSE [id number] 08:04:00 Test Item Value Reference Range Interpretation Comments POC-GLUCOSE METER 156 mg/dL 70-110 H : TESTED A T [facility] 6720 (BEAKER) (test code = [facility], 1538) 62943: 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 sebastian ID = [id number] for DI EPSTEIN BASIC METABOLIC [id number] 05:51:00 Test Item Value Reference Range Interpretation [...] S NOT APPLICABLE FOR DIALYSIS PATIEN TS. [employer] ID - PIAYA LSpecimen slightly ictericC. DIFFICILE GDH [id number] 05:03:00 Test Item Value Reference Range Interpretation Comments CDT TOXIN (test code Negative Negative = [id number]) CDT GDH ANTIGEN Positive Negative A C. difficile present but (test code = toxin not detec dominic. [id number]) Indicates colon ization with non-toxige faith strain [...] of kit performance was done by the [facility] MicrobiologyLab prior to clinical use.FECAL [id number] 00:34:00 Test Item Value Reference Range Interpretation Comments FECAL LEUKOCYTES No fecal leukocytes No fecal leukocytes (BEAKER) (test code = seen seen 992) POCT-GLUCOSE [id number] 22:14:00 Test Item Value Reference Range Interpretation Comments POC-GLUCOSE METER 224 mg/dL 70-110 H : TESTED A T [facility] 6720 (BEAKER) (test code = [facility] [place], 1538) 68[address]: 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 sebastian ID = [id number] for SHAHZAD BRUCE POCT-GLUCOSE [id number] 14:51:00 Test Item Value Reference Range Interpretation Comments POC-GLUCOSE METER 120 mg/dL 70-110 H : TESTED A T [facility] 6720 (BEAKER) (test code = [facility] [place], 1538) 37240: 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 sebastian ID = [id number] for NCHEFrancesco, MIYA BASIC METABOLIC [id number] 11:35:00 Test Item Value Reference Range Interpretation [...] S NOT APPLICABLE FOR DIALYSIS PATIEN TS. [employer] ID - EVELIA MSpecimen slightly [id number] 11:32:00 Test Item Value Reference Range Interpretation Comments MAGNESIUM (BEAKER) (test code = 1.9 mg/dL 1.6-2.6 627) [employer] ID - EVELIA MHEPATIC FUNCTION [id number] 11:32:00 Test Item Value Reference Range Interpretation [...] code = 107 U/L 6-55 H 347) [employer] ID - EVELIA MSpecimen slightly ictericPROTHROMBIN [id number] 07:18:00 Test Item Value Reference Range Interpretation [...] mechanical heart valves.CBC W/PLT COUNT & AUTO [id number] 07:11:00 Test Item Value Reference Range Interpretation [...] PERCENT (BEAKER) (test code = 2801) BLOOD [id number] 23:00:00 Test Item Value Reference Range Interpretation Comments CULTURE (BEAKER) (test No growth in 5 days code = 1095) BLOOD [id number] 23:00:00 Test Item Value Reference Range Interpretation Comments CULTURE (BEAKER) (test No growth in 5 days code = 1095) PROTEIN ELECTROPHORESIS, [id number] 13:55:00 Test Item Value Reference Range Interpretation [...] and/or protein-losing enteropathy. No monoclonal bands detected. [id number] Yudith Emanuel MD (BEAKER) (test code = (electronic signature) 2616) PROTEIN TOTAL SERUM, 5.0 gm/dL 6.0-8.3 L SPEP (BEAKER) (test code = 2910) [employer] ID - EVELIA MHEPATITIS PANEL, [id number] 17:11:00 Test Item Value Reference Range Interpretation Comments HEPATITIS A IGM ANTIBODY (BEAKER) Nonreactive Nonreactive (test code = 498) HEPATITIS B CORE IGM ANTIBODY Nonreactive Nonreactive (BEAKER) (test code = 645) HEPATITIS C ANTIBODY (BEAKER) Nonreactive Nonreactive (test code = 367) HEPATITIS B SURFACE ANTIGEN (2) Nonreactive Nonreactive (BEAKER) (test code = 2585) Laborer [employer] ID - DBPOCT-GLUCOSE [id number] 16:42:00 Test Item Value Reference Range Interpretation Comments POC-GLUCOSE METER 236 mg/dL 70-110 H : TESTED A T [facility] 6720 (BEAKER) (test code = [facility], 1538) 88197: 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 sebastian ID = [id number] for Me ndez, Giulia POCT-GLUCOSE [id number] 12:36:00 Test Item Value Reference Range Interpretation Comments POC-GLUCOSE METER 276 mg/dL 70-110 H : TESTED A T [facility] 6720 (BEAKER) (test code = [facility], 1538) 94379: 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 sebastian ID = [id number] for Me ndez, Giulia HEMOGLOBIN [id number] 12:07:00 Test Item Value Reference Range Interpretation Comments HEMOGLOBIN A1C (BEAKER) (test code = 8.0 % 4.3-6.1 H 368) COMPREHENSIVE METABOLIC [id number] 11:48:00 Test Item Value Reference Range Interpretation [...] S NOT APPLICABLE FOR DIALYSIS PATIEN TS. Lab[employer] ID - SUSI MSpecimen moderately ictericLIPID [id number] 11:48:00 Test Item Value Reference Range Interpretation [...] Borderline 130-159 High 160-189 Very High >=190 Lab[employer] ID - SUSI MSpecimen moderately ictericTSH/FREE T4 IF [id number] 10:29:00 Test Item Value Reference Range Interpretation Comments THYROID STIMULATING HORMONE 3.805 uIU/mL 0.350-4.940 (BEAKER) (test code = 772) [employer] ID - [id number] 09:30:00 Test Item Value Reference Range Interpretation Comments FERRITIN (BEAKER) (test code = 292.76 ng/mL 5.00-275.00 H 361) Lab[employer] ID - AAHAMIDVITAMIN B12 AND [id number] 09:30:00 Test Item Value Reference Range Interpretation Comments VITAMIN B12 (BEAKER) (test code = 1155 pg/mL 213-816 H 774) FOLATE (BEAKER) (test code = 362) 8.50 ng/mL >=7.00 Laborer [employer] ID - AALUCRETIAIDPOCT-GLUCOSE [id number] 08:10:00 Test Item Value Reference Range Interpretation Comments POC-GLUCOSE METER 197 mg/dL 70-110 H : TESTED A T [facility] 6720 (BEAKER) (test code = [place], 1538) 7[address]: 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 sebastian ID = [id number] for Giulia Wade MR, BRAIN, [id number] 02:52:00Unlisted Reason for Exam - Click Yes [...] due to collateral veins. Signed: Rao Torre [employer] Verified Date/Time: 04/24/2020 02:52:33 U/S, ABDOMINAL, [id number] 23:25:00Abdomen limited area? Add comment if clarification [...] Torre MDReport Verified Date/Time: 04/23/2020 23:25:58 POCT-GLUCOSE [id number] 23:17:00 Test Item Value Reference Range Interpretation Comments POC-GLUCOSE METER 206 mg/dL 70-110 H : TESTED A T [facility] 6720 ([place]) (test code = JEANE Noriega [facility], 1538) 47880: 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 sebastian ID = [id number] for LAVONNE MUSTAFA POCT-GLUCOSE [id number] 17:40:00 Test Item Value Reference Range Interpretation Comments POC-GLUCOSE METER 249 mg/dL 70-110 H : Notified RN/MD: ([place]) (test code = TESTED AT [facility] 6720 1538) SADAF [facility], [address]: 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 sebastian ID = [id number] for Jazmin Sandoval CT, BRAIN, WITHOUT [id number] 10:32:00Unlisted Reason for Exam - Click Yes [...] (BEAKER) (test code = 2801) BASIC METABOLIC [id number] 05:03:00 Test Item Value Reference Range Interpretation [...] S NOT APPLICABLE FOR DIALYSIS PATIEN TS. Lab[employer] ID - EVEILA MSpecimen moderately ictericHEPATIC FUNCTION [id number] 05:03:00 Test Item Value Reference Range Interpretation [...] (test code = 353) hemolyzed ALT (SGPT) (AKER) 90 U/L 6-55 H Specimen moderately (test code = 347) hemolyzed [employer] ID - EVELIA MSpecimen moderately ictericPOCT-GLUCOSE [id number] 04:01:00 Test Item Value Reference Range Interpretation Comments POC-GLUCOSE METER 193 mg/dL 70-110 H : TESTED A T [facility] 6720 ([facility]) (test code [facility], = 1538) 82672: 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 sebastian ID = [id number] for RUSSELL , ESME POCT-GLUCOSE [id number] 21:04:00 Test Item Value Reference Range Interpretation Comments POC-GLUCOSE METER 198 mg/dL 70-110 H : TESTED A T [facility] 6720 ([facility]) (test code = JEANE Noriega [facility], 1538) 63691: 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 sebastian ID = [id number] for Cathy Tammie escalantetany POCT-GLUCOSE [id number] 16:17:00 Test Item Value Reference Range Interpretation Comments POC-GLUCOSE METER 266 mg/dL 70-110 H : TESTED A T [facility] 6720 ([facility]) (test code = [facility], 1538) 99689: 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 sebastian ID = [id number] for BRUCE DUMONT SARS-COV2/RT-PCR ([facility])2020-04-22 14:59:00 Test Item Value Reference Range Interpretation Comments SARS-COV2/RT-PCR (test Negative Not Detected, Negative, code = 1264545) See external report for linked test SARS-COV-2 PERFORMING LAB [facility] ROLY (test code = 5757492) Negative result for this test determines that [...] of the Act.Fact Sheet for Healthcare Prov iders:https://www.[employer]/sites/default/files/product/documents/Fact_Sheet_HC _Sexguvccn_Jzpc_BLOI-XcO-5.pdfFact Sheet for Healthcare Patients:https://www.[address].[employer]/sites/default/files/product/docume nts/Oqjs_Apsyc_Saubwhil_Rmlj_LKXP-KeI-7.pdfPerforming Laboratory:[facility], [place] [address]NPUX-MITPXTD METER 2020-04-22 12:21:00 Test Item Value Reference Range Interpretation Comments POC-GLUCOSE METER 210 mg/dL 70-110 H : TESTED Adonay Martinez [facility] 6720 ([place]) (test code = JEANE Noriega [facility], 1538) 89647: 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 sebastian ID = [id number] for BRUCE DUMONT [id number] 11:00:00 Test Item Value Reference Range Interpretation Comments PHOSPHORUS ([place]) (test code = 3.1 mg/dL 2.3-4.7 604) Lab[employer] ID - EVELIA [id number] 11:00:00 Test Item Value Reference Range Interpretation Comments MAGNESIUM (BEAKER) (test code = 1.9 mg/dL 1.6-2.6 627) Lab[employer] ID - EVELIA MBASIC METABOLIC [id number] 11:00:00 Test Item Value Reference Range Interpretation [...] S NOT APPLICABLE FOR DIALYSIS PATIEN TS. Lab[employer] ID - EVELIA MSpecimen moderately ictericHEPATIC FUNCTION [id number] 11:00:00 Test Item Value Reference Range Interpretation [...] code = 112 U/L 6-55 H 347) Lab[employer] ID - EVELIA MSpecimen moderately ictericPOCT-GLUCOSE [id number] 08:40:00 Test Item Value Reference Range Interpretation Comments POC-GLUCOSE METER 187 mg/dL 70-110 H : TESTED A T [facility] 6720 (BEAKER) (test code = [place], 1538) 87692: 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 sebastian ID = [id number] for BRUEC DUMONT CBC W/PLT COUNT & AUTO [id number] 07:04:00 Test Item Value Reference Range Interpretation [...] PERCENT (BEAKER) (test code = 2801) POCT-GLUCOSE [id number] 23:41:00 Test Item Value Reference Range Interpretation Comments POC-GLUCOSE METER 211 mg/dL 70-110 H : TESTED A T [facility] 6720 (BEAKER) (test code = JEANE Noriega [facility], 1538) 69867: 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 sebastian ID = [id number] for SHABBIR BEAN URINALYSIS W/ [id number] 21:58:00 Test Item Value Reference Range Interpretation [...] = 516) SOURCE(BEAKER) (test code = 2795) Laborer [employer]crete Plant ID - [auto]Laborer Concrete Plant ID - hankFUNGUS CULTURE + [id number] 18:07:00 Test Item Value Reference Range Interpretation Comments CULTURE (BEAKER) A 3+ Lorri albicans (test code = 1095) FUNGUS SMEAR No fungi seen (BEAKER) (test code = 1406) ANAEROBIC [id number] 18:52:00 Test Item Value Reference Range Interpretation Comments CULTURE (BEAKER) (test No anaerobes isolated code = 1095) CBC W/PLT COUNT & AUTO [id number] 06:39:00 Test Item Value Reference Range Interpretation [...] (BEAKER) (test code = 2801) COMPREHENSIVE METABOLIC [id number] 06:17:00 Test Item Value Reference Range Interpretation [...] S NOT APPLICABLE FOR DIALYSIS PATIEN TS. Laborer [employer] Plant ID - EVELIA MCOMPREHENSIVE METABOLIC [id number] 05:24:00 Test Item Value Reference Range Interpretation [...] S NOT APPLICABLE FOR DIALYSIS PATIEN TS. Laborer Concrete Plant ID - LEOBARDOASIWOUND CULTURE + GRAM [id number] 10:29:00 Test Item Value Reference Range Interpretation [...] <1+ budding yeast (BEAKER) (test code = 654453) CBC W/PLT COUNT & AUTO [id number] 05:33:00 Test Item Value Reference Range Interpretation [...] (BEAKER) (test code = 2801) COMPREHENSIVE METABOLIC [id number] 05:08:00 Test Item Value Reference Range Interpretation [...] S NOT APPLICABLE FOR DIALYSIS PATIEN TS. Laborer [employer] Plant ID - EDASISpecimen slightly ictericCOMPREHENSIVE METABOLIC PANEL [...] S NOT APPLICABLE FOR DIALYSIS PATIEN TS. Laborer [employer] ID - PIAYA LSpecimen slightly ictericCBC W/PLT COUNT & AUTO [id number] 05:03:00 Test Item Value Reference Range Interpretation [...] (BEAKER) (test code = 2801) CT, DRAINAGE, [id number] 12:12:00Reason for exam:->Diverticulitis with increasing size of abscessFINAL REPORT PROCEDURE: CT, DRAINAGE, ABDOMINAL DOSE REDUCTION: The examinationwas performed according to departmental dose-optimization program which includes automated exposure c ontrol, adjustment of the mA and/or kV according to patient size and/or use of iterative reconstruction technique. HISTORY: Diverticulitis with increasing size of abscess Laborer Concrete Plant: Bam Ko MD Moderate sedation: See nursing [...] dilated using serial dilators. Subsequently a 8 Ecuadorean all-purpose drainage catheter was advanced into the [...] Ko Verified Date/Time: 04/01/2020 12:12:30 Reading Location: [facility] C0[facility] Transitional Reading Room CBC W/PLT COUNT & AUTO [id number] 06:34:00 Test Item Value Reference Range Interpretation [...] 0-1 PERCENT (BEAKER) (test code = 2801) [id number] 06:33:00 Test Item Value Reference Range Interpretation Comments MAGNESIUM (BEAKER) 2.0 mg/dL 1.6-2.6 Specimen slightly (test code = 627) hemolyzed Laborer [employer] ID - EVELIA [id number] 06:33:00 Test Item Value Reference Range Interpretation Comments PHOSPHORUS (BEAKER) 2.0 mg/dL 2.3-4.7 L Specimen slightly (test code = 604) hemolyzed Laborer Con[employer] Plant ID - EVELIA MCOMPREHENSIVE METABOLIC [id number] 06:33:00 Test Item Value Reference Range Interpretation [...] S NOT APPLICABLE FOR DIALYSIS PATIEN TS. Laborer Con[employer] ID - EVELIA MSpecimen slightly ictericCOMPREHENSIVE METABOLIC [...] S NOT APPLICABLE FOR DIALYSIS PATIEN TS. Laborer [employer] Plant ID - MICHELL CSpecimen slightly [id number] 09:49:00 Test Item Value Reference Range Interpretation Comments MAGNESIUM (BEAKER) (test code = 2.1 mg/dL 1.6-2.6 627) Laborer [employer] ID - MICHELL CLACTIC ACID, [id number] 09:45:00 Test Item Value Reference Range Interpretation Comments LACTATE BLOOD VENOUS (2) (BEAKER) 1.05 mmol/L 0.50-2.20 (test code = 2872) Laborer [employer] Plant ID - MICHELL CPT/[id number] 09:35:00 Test Item Value Reference Range Interpretation [...] mechanical heart valves.CBC W/PLT COUNT & AUTO [id number] 09:26:00 Test Item Value Reference Range Interpretation [...] 417) IMMATURE GRANULOCYTES-RELATIVE 0 % 0-1 PERCENT ([employer]) (test code = 2801)
[2023-05-07] MEDS ORDERED: LORazepam 2 MG/ML VIAL IV ONE (08:45)
[2023-05-07] MEDS ORDERED: CEFTRIAXONE 1,000 MG in NA CHLORIDE 0.9% 50 ML IVPB SCH (09:00)
[2023-05-07] MEDS ORDERED: ASPIRIN EC 81 MG TAB PO SCH (09:00)
[2023-05-07] MEDS ORDERED: FAMOTIDINE 20 MG/2 ML VIAL IV SCH (09:00)
[2023-05-07 11:03] VITALS: O2SAT 95
--- NOTE | 2023-05-07 11:48 | RAD REPORT ---
EXAM DESCRIPTION: CT Chest, Abdomen and Pelvis With Intravenous Contrast CLINICAL HISTORY: The patient is 82 years old and is Female; Abdominal distention;Pain TECHNIQUE: Axial computed tomography images of the chest, abdomen and pelvis with intravenous contra st. Sagittal and coronal reformatted images were created and reviewed. This CT exam was performed using one or more of the following dose reduction techniques: automated exposure control, adjustme nt of the mA and/or kV according to patient size, and/or use of iterative reconstruction technique. COMPARISON: No relevant prior studies available. FINDINGS: CHEST: Lungs: Unremarkable. No mass. No consolidation. Pleural space: Unremarkable. No significant effusion. No pneumothorax. Heart: Unremarkable. No cardiomegaly. No significant pericardial effusion. No significant c oronary artery calcifications. Mediastinum: Calcified mediastinal lymph nodes. ABDOMEN: Liver: Calcified granulomas in the liver. Gallbladder and bile ducts: Gallbladder is not seen. Mild intra and extrahepatic biliary dilatation which may be due to prior cholecystectomy. Pancreas: Unremarkable. No ductal dilation. No mass. Spleen: Calcified granulomas in the spleen. Adrenals: Unremarkable. No mass. Kidneys and ureters: Right kidney is surgically absent. No hydronephrosis. No solid mass. Stomach and bowel: Postsurgical changes in the stomach. Colonic diverticulosis. No obstruction. No mucosal thickening. PELVIS: Appendix: No findings to suggest acute appendicitis. Bladder: Diffuse bladder wall thickening with mild perivesicular stranding. Suggestion of multiple bladder diverticula. Reproductive: Uterus is not seen. CHEST, ABDOMEN and PELVIS: Intraperitoneal space: Unremarkable. No significant fluid collection. No free air. Bones/joints: Unremarkable. No acute fracture. No dislocation. Soft tissues: Unremarkable. Vasculature: Scattered atherosclerotic vascular calcifications. No aortic aneurysm. Lymph nodes: Unremarkable. No enlarged lymph nodes. IMPRESSION: 1. Diffuse bladder wall thickening with mild perivesicular stranding. Findings can b e seen with cystitis. 2. Additional non-emergent findings as above. Electronically signed by: Karthikeyan Wolff MD 05/07/2023 2:24 AM CDT Due to temporary technical issues with the PACS/Fluency reporting system, reports are being signed by the in house radiologist without review as a courtesy to ensure prompt reporting. The interpreting r adiologist is fully responsible for the content of the report.
--- NOTE | 2023-05-07 12:00 | RAD REPORT ---
EXAM DESCRIPTION: XR Chest, 1 View CLINICAL HISTORY: The patient is 82 years old and is Female; COUGH TECHNIQUE: Frontal view of the chest. COMPARISON: No relevant prior studies available. FINDINGS: Lungs: Prominent interstitial markings with peribronchial thickening. Pleural space: Blunting of the left costophrenic angle which may indicate left pleural effusion. No pneumothorax. Heart: Unremarkable. Mediastinum: Unremarkable. Bones/joints: Disc space narrowing with degenerative endplate changes in the spine. Vasculature: Aortic calcification. Upper abdomen: Clips overlying the upper abdomen. IMPRESSION: 1. Prominent interstitial markings with peribronchial thickening. 2. Blunting of the left costophrenic angle which may indicate left pleural effusion. Electronically signed by: Karthikeyan Wolff MD 05/06/2023 11:37 PM CDT Due to temporary technical issues with the PACS/Fluency reporting system, reports are being signed by the in house radiologist without review as a courtesy to ensure prompt reporting. The interpreting r adiologist is fully responsible for the content of the report.
--- NOTE | 2023-05-07 12:33 | RAD REPORT ---
EXAM DESCRIPTION: MRI - Lumbar Spine Wo Con- 05/07/2023 11:45 am CLINICAL HISTORY: pain Back pain, radiculopathy. COMPARISON: Chest Abdomen Pelvis W Cont dated 05/07/2023 FINDINGS: Vertebral body heights are within normal limits. No aggressive marrow pattern is observed. No fracture is suspected. The conus medullaris terminates at a normal level. No thickening of the cauda equina or clumping of n erve roots seen. L1-2 level: Mild posterior disc bulge. L2-3 level: Mild posterior disc bulge with mild facet hypertrophy. L3-4 level: Mild facet and ligamentum flavum hypertrophy. L4-5 level: Ybvd-db-igqruoaf facet and ligamentum flavum hypertrophy. Mild narrowing the anterior inf erior aspects of both exit foramina. L5-S1 level: Prominent calcified central disc protrusion is present resulting in mild central canal n arrowing. IMPRESSION: Mild lower lumbar spondylosis is present. No high-grade canal stenosis or foraminal narr owing.
[2023-05-07 12:40] VITALS: BP 143/65; TEMP 97
--- NOTE | 2023-05-07 14:30 | EKG ---
Test Date: 2023-05-07 Test Time: 00:23:47 Material Reprocessing Associate: ANA MEASUREMENT RESULTS: Intervals: Rate: 73 SD: 170 QRSD: 80 QT: 418 QTc: 460 [place]: P: 49 SD: 170 QRS: 28 T: 39 INTERPRETIVE STATEMENTS: Normal sinus rhythm Nonspecific ST abnormality Abnormal ECG Compared to ECG 04/29/2023 09:27:25 No significant changes Electronically Signed On 05-07-23 14:30:06 CDT by Antonio See
--- NOTE | 2023-05-07 21:24 | P.SSS ---
Patient History Date of Service: 05/07/23 Reason for admission: LOW BACK PAIN, NAUSEA History of Present Illness: COMFORT WELLER HAS MANY MEDICAL ISSUES AND CHRONIC COMPLAINTS OF MANY KINDS. SHE COMES WITH LOWER BACK PAIN AND NAUSEA. HER UA IS CLEAR, CT CHEST ABDOMEN AND PELVIS ARE CLEAR EXCEPT FOR NON SPECIFIC BLADDER WALL THICKENING. I DID MRI OF LOWER SPINE THAT IS NORMAL. SHE IS STABLE AND WILL CONTINUE WITH OUTPATIENT WORK UP. Allergies meperidine HCl [From Demerol] Allergy (Verified 05/07/23 04:27) hallucinations Sulfa (Sulfonamide Antibiotics) Adverse Reaction (Verified 05/07/23 04:27) Nausea/Vomiting Morphine Allergy (Uncoded 05/07/23 04:27) hallucinations Home medications list reviewed: Yes Home Medications: Sertraline [Zoloft*] 100 mg PO DAILY 04/29/19 Alpha Lipoic Acid 1 tab PO DAILY 03/25/20 Cholecalciferol (Vitamin D3) [Vitamin D3] 1 tab PO DAILY 03/25/20 Diltiazem Cd [Cardizem Cd] 120 tab PO DAILY 03/25/20 Levothyroxine [Synthroid*] 0.075 mg PO DAILY 03/25/20 Losartan Potassium 100 mg PO DAILY 03/25/20 Nitroglycerin 1 tab PO SEECOM 03/25/20 Pregabalin [Lyrica*] 75 mg PO TID 03/25/20 predniSONE [Deltasone*] 2 tab PO BID 03/25/20 Alprazolam [Xanax] 0.25 mg pe PO PRN PRN 11/01/20 Cyclosporine [Restasis] 1 drop EACH EYE BID 11/01/20 Folic Acid 1 mg PO DAILY 11/01/20 Insulin Glargine,Hum.rec.anlog [Lantus] 10 units SQ PRN 11/01/20 Omeprazole [Prilosec] 40 mg PO DAILY 11/01/20 Rosuvastatin Calcium 40 mg PO DAILY 11/01/20 Vit A/Vit C/Vit E/Zinc/Copper [Preservision Areds Softgel] 1 each PO QID 11/01/20 - Past Medical/Surgical History Has patient received pneumonia vaccine in the past: Yes Diabetic: Yes -: Herpes -: Hypothyroidisim -: Hypertension -: High Cholesterol -: Depression -: GERD -: Giant Cell Arteritis -: Kidney Cancer -: Neuropathy -: DM (chemical induced) -: Nephrectomy Right -: Gastric bypass -: Hysterectomy -: Hernia Repair - Family History Father -: Cancer Notes: - Lung Cancer Mother Notes: - Congestive heart failure, Diabetes - Social History Smoking Status: Never smoker Alcohol use: No CD- Drugs: No Caffeine use: No Place of Residence: Home Review of Systems 10-point ROS is otherwise unremarkable Physical Examination - Vital Signs Temperature: 97.0 F Blood Pressure: 143/65 Pulse: 88 Respirations: 16 Pulse Ox (%): 92 - Physical Exam General: Oriented x3, Mild distress HEENT: Atraumatic, PERRLA, Mucous membr. moist/pink, EOMI, Sclerae nonicteric Neck: Supple, 2+ carotid pulse no bruit, No LAD, Without JVD or thyroid abnormality Respiratory: Clear to auscultation bilaterally, Normal air movement Cardiovascular: Regular rate/rhythm, Normal S1 S2 Gastrointestinal: Normal bowel sounds, No tenderness Musculoskeletal: No tenderness Integumentary: No rashes Neurological: Normal gait, Normal speech, Normal strength at 5/5 x4 extr, Normal tone, Normal affect Lymphatics: No axilla or inguinal lymphadenopathy - Studies Laboratory Data (last 24 hrs) 05/07/23 05/07/23 05/07/23 00:00 00:00 00:00 WBC 6.50 Hgb 10.9 L Hct 32.7 L Plt Count 233 PT 11.1 INR 0.93 Sodium 138 Potassium 3.4 L BUN 12 Creatinine 0.97 Glucose 91 Magnesium 2.0 Total Bilirubin 0.4 AST 32 ALT 34 Alkaline Phosphatase 101 Lipase 51 - Diagnosis (Problem(s)) (1) Back pain Status: Acute Plan: HER BACK PAIN WORKUP SHOWS NO NEW FINDINGS HPI I CALLED IN TRAMADOL REFER TO PAIN MD. UA NEG. (2) Nausea Status: Chronic Plan: PROTONIX AND ZOFRAN EGD ON OP BASIS. - Disposition Disposition: ROUTINE DISCHARGE
== END 2023-05-07 15:45 | disposition home or self-care (01) ==
LOC: ER 22:20 → INTOOBSV 05-07 02:58 → ERHOLD 05-07 02:58 → 2ND 05-07 03:12
PROVIDERS: ADMIT Internal Medicine; ATTEND Internal Medicine
DX: M54.50 Low back pain, unspecified (principal); R11.0 Nausea; E11.9 Type 2 diabetes mellitus without complications; K21.9 Gastro-esophageal reflux disease without esophagitis; F32.A Depression, unspecified; E78.00 Pure hypercholesterolemia, unspecified; Z90.710 Acquired absence of both cervix and uterus; Z88.6 Allergy status to analgesic agent; Z88.2 Allergy status to sulfonamides; Z85.528 Personal history of other malignant neoplasm of kidney
CPT/HCPCS: 93005; 87040 ×2; 85025; 81001; 80048; 36415; 83735; 84132; 85610; 80076; 83605; 84484 ×2; 83690; 83880; 71260; 74177; 71045; 72148; Q9967; J2405; J7030 ×2; J0696 ×2; G0378

== ENCOUNTER 2023-08-04 13:06 | Day surgery (SDC) | payer OTHER ==
[2023-08-04] MEDS ORDERED: Zoledronic Acid/Mannitol/Water 5 MG/100 ML INFUS.BOT IV ONE (13:45)
[2023-08-04 14:44] VITALS: BP 172/52; O2SAT 95; BMI 25.4
[2023-08-04 14:56] VITALS: TEMP 98.6
== END 2023-08-04 14:27 | disposition home or self-care (01) ==
LOC: DS 13:06
PROVIDERS: ATTEND Internal Medicine
DX: M81.0 Age-related osteoporosis without current pathological fracture (principal); R13.10 Dysphagia, unspecified; E86.0 Dehydration
CPT/HCPCS: 96365; J3489

== ENCOUNTER 2023-10-21 21:22 | Observation (INO) | payer OTHER ==
[2023-10-21 22:44] LABS: Protime INR 1.07
[2023-10-21 22:45] LABS: Absolute Lymphocytes (CBC) 1.1 K/uL (0.7-4.9); Basophils % 0.6 % (0-1.3); Eosinophils % 1.1 % (0-4.4); Hematocrit 18.7 % (36.0-45.0); MCV 97.6 fL (80-100); MPV 7.7 fL (7.6-11.3); Platelets 157 thou/uL (152-406); RBC Red Blood Cell Count 1.92 M/uL (3.86-4.86)
[2023-10-21 22:50] LABS: Albumin 2.8 g/dL (3.4-5.0); Albumin/Globulin Ratio 1.1 (1.1-1.8); Anion Gap 9.2 mEq/L (5.0-15.0); Bilirubin Direct 0.2 mg/dL (0-0.2); Bilirubin Indirect, Calculated 0.2 mg/dL (0.2-0.8); Bilirubin Total 0.4 mg/dL (0.2-1.0); Globulin 2.6 g/dL (2.3-3.5); Potassium 3.2 mEq/L (3.5-5.1); Protein, Total 5.4 g/dL (6.4-8.2); Troponin High Sensitivity 22.5 pg/mL (<58.9)
[2023-10-21] MEDS ORDERED: DIPHENHYDRAMINE 25 MG TAB/CAP ONE (23:48)
[2023-10-21] MEDS ORDERED: ACETAMINOPHEN 500 MG TAB ONE (23:48)
[2023-10-21] MEDS ORDERED: POTASSIUM CL SA 10 MEQ TAB PO ONE (23:49)
[2023-10-21] MEDS ORDERED: FUROSEMIDE 20 MG TABLET ONE (23:49)
[2023-10-21] MEDS ORDERED: ONDANSETRON 4 MG (ODT) TAB ONE (23:49)
[2023-10-21] MEDS ORDERED: CALCIUM GLUCONATE 1 GM IVPB 1 GM/50 ML BAG IV ONE (23:50)
--- NOTE | 2023-10-22 00:02 | EDPHYS ---
Physician Documentation [facility] Name: Radha Ocampo Age: 83 yrs Sex: Female : 1940 Arrival Date: 10/21/2023 Time: 21:22 Bed 17 Private MD: ED Physician Chavez Siddiqi HPI: 10/20 23:18 This 83 yrs old Female presents to ER via Wheelchair with complaints of sp4 Abnormal Lab Results. 10/21 00:04 Presents because she was instructed by her primary care physician to come to the sp4 emergency room for hemoglobin of 6.1. 00:13 Reports dyspnea on exertion for the past several days also feeling generalized weakness sp4 for the past several days. Symptoms have intensified today. Patient's blood work was collected this morning at the [facility] labs and she was reported to have hemoglobin of 6.1. Patient has history of symptomatic anemia prior history of transfusions. Patient's medications include Zoloft, alpha lipoid acid, cholecalciferol, diltiazem 120 mg p.o. daily, Synthroid 75 mcg p.o. daily, losartan 100 mg p.o. daily, nitroglycerin as needed, pregabalin 75 mg p.o. 3 times daily, prednisone 2 tabs daily, alprazolam 0.25 mg p.o. as needed, cyclosporine ophthalmic drops or Restasis twice daily, folic acid 1 mg p.o. daily, insulin glargine 10 units subcu daily, omeprazole 40 mg daily, Crestor 40 mg daily, preservation multivitamin tablet daily. Patient has past medical history of herpes, hypothyroidism, hypertension, high cholesterol, depression, GERD, giant cell arteritis, kidney cancer, neuropathy, diabetes mellitus, nephrectomy, gastric bypass, hysterectomy, hernia repair. . Historical: - Allergies: 10/20 21:38 Demerol; as6 21:38 meperidine HCl (rash); as6 21:38 Morphine; as6 - PMHx: 21:38 ADD/ADHD; Depression; DM chemical induced; giant cell arteritis; Giant Cell Arthritis; as6 Hyperlipidemia; Hypertension; Hypothyroidism; Myocardial infarction; renal cell carcinoma; renal cell carcinoma contained; stage 3 kidney failure; - PSHx: 21:38 Cholecystectomy; Gastric Bypass; hysterectomy; Right Nephrectomy; as6 - Immunization history:: Adult Immunizations up to date. - Social history:: Smoking status: Patient denies any tobacco usage or history of. - Family history:: not pertinent. ROS: 10/21 00:13 Constitutional: Negative for fever, chills, and weight loss, positive generalized sp4 pallor, positive shortness of breath, positive fatigue and generalized weakness All other systems are negative, Exam: 00:01 ECG was reviewed by the Attending Physician. EKG time 2232 EKG reveals sinus rhythm at sp4 a rate of 70, no ST elevation or depression. 00:13 Constitutional: This is a well developed, well nourished patient who is awake, alert, sp4 and in no acute distress. Frail elderly female generalized pallor Head/Face: Normocephalic, atraumatic. Eyes: Pupils equal round and reactive to light, extra-ocular motions intact. Lids and lashes normal. Conjunctiva and sclera are not injected. Cornea within normal limits. Periorbital areas with no swelling, redness, or edema. ENT: Nares patent. No nasal discharge, no septal abnormalities noted. Tympanic membranes are normal and external auditory canals are clear. Oropharynx with no redness, swelling, or masses, exudates, or evidence of obstruction, uvula midline. Mucous membranes moist. Neck: Trachea midline, no thyromegaly or masses palpated, and no cervical lymphadenopathy. Supple, full range of motion without nuchal rigidity, or vertebral point tenderness. Chest/axilla: Normal chest wall appearance and motion. Nontender with no deformity. No lesions are appreciated. Cardiovascular: Regular rate and rhythm with a normal S1 and S2. No gallops, murmurs, or rubs. Normal PMI, no JVD. No pulse deficits. Respiratory: Lungs have equal breath sounds bilaterally, clear to auscultation and percussion. No rales, rhonchi or wheezes noted. No increased work of breathing, no retractions or nasal flaring. Abdomen/GI: Soft, with normal bowel sounds. No distension or tympany. No guarding or rebound. No evidence of tenderness throughout. Digital rectal exam reveals no blood or melena, no rectal mass, no maroon stool. Back: No spinal tenderness. No costovertebral tenderness. Skin: Warm, dry with normal turgor. Pale but present with no rashes, no lesions, and no evidence of cellulitis. MS/ Extremity: Pulses equal, no cyanosis. Neurovascular intact. Full, normal range of motion. Neuro: Awake and alert, GCS 15, oriented to person, place, time, and situation. Cranial nerves II-XII grossly intact. Motor strength 5/5 in all extremities. Sensory grossly intact. Psych: Awake, alert, with orientation to person, place and time. Behavior, mood, and affect are within normal limits Vital Signs: 10/20 21:35 BP 153 / 54; Pulse 74; Resp 18 S; Temp 97.2(TE); Pulse Ox 99% on R/A; Weight 54.43 kg as6 (R); Height 5 ft. 0 in. (R); Pain 0/10; 22:30 BP 159 / 47; Pulse 70; Resp 16 S; Pulse Ox 97% on R/A; jw7 23:00 BP 127 / 109; Pulse 69; Resp 14 S; Pulse Ox 96% on R/A; jw7 10/21 00:00 BP 145 / 46; Pulse 76; Resp 13 S; Pulse Ox 97% on R/A; jw7 01:20 BP 149 / 50; Pulse 72; Resp 13 S; Temp 98.5(TE); Pulse Ox 95% on R/A; jw7 02:20 BP 160 / 66; Pulse 68; Resp 14 S; Pulse Ox 100% on 2 lpm NC; jw7 10/20 21:35 Body Mass Index 23.44 (54.43 kg, 152.4 cm) as6 10/20 21:35 Pain Scale: Adult as6 MDM: 10/20 21:33 Patient medically screened. sp4 10/21 00:13 Differential Diagnosis altered mental status, sepsis, flu, Symptomatic anemia. Data sp4 reviewed: vital signs, nurses notes, old medical records, lab test result(s), EKG. Consideration of Admission/Observation Patient was admitted/placed on observation. Escalation of care including admission/observation considered. Management of patient was discussed with the following: Primary Care Provider: Kasey VERGARA . ED course: Admitted For transfusion of 2 units PRBCs. Condition is stable. 10/20 21:33 Order name: Basic Metabolic Panel; Complete Time: 23:18 sp4 10/20 21:33 Order name: CBC with Diff; Complete Time: 07:26 sp4 10/20 21:33 Order name: LFT's; Complete Time: 23:18 sp4 10/20 21:33 Order name: NT PRO-BNP; Complete Time: 23:18 sp4 10/20 21:33 Order name: PT-INR; Complete Time: 23:18 sp4 10/20 21:33 Order name: Troponin HS; Complete Time: 23:18 sp4 10/20 21:33 Order name: PRBC [facility] 10/20 21:36 Order name: ABO/RH typing [facility] 10/20 21:36 Order name: Antibody Screen [facility] 10/20 22:54 Order name: Manual Differential; Complete Time: 07:26 EDMS 10/20 21:33 Order name: EKG; Complete Time: 21:33 sp4 10/20 21:33 Order name: Cardiac monitoring; Complete Time: 22:41 sp4 10/20 21:33 Order name: EKG - Nurse/Tech; Complete Time: 22:41 sp4 10/20 21:33 Order name: IV Saline Lock; Complete Time: 22:23 sp4 10/20 21:33 Order name: Labs collected and sent; Complete Time: 22:23 sp4 10/20 21:33 Order name: O2 Per Protocol; Complete Time: 22:23 sp4 10/20 21:33 Order name: O2 Sat Monitoring; Complete Time: 22:23 sp4 10/20 23:19 Order name: Saline Lock; Complete Time: 23:21 sp4 EC:01 Rate is 70 beats/min. Rhythm is regular, Normal Sinus Rhythm. QRS Barnard is Normal. CO sp4 interval is normal. QRS interval is normal. QT interval is normal. No Q waves. T waves are Normal. No ST changes noted. Clinical impression: No evidence of ischemia. Interpreted by me. Reviewed by me. Administered Medications: 00:11 Drug: Calcium Gluconate IVPB 1 grams IVPB once over 60 mins; (mix in NS 100 mL) Route: jw7 IVPB; Infused Over: 60 mins; Site: left antecubital; :44 Follow up: Response: No adverse reaction; IV Status: Completed infusion; IV Intake: [id number] 00:11 Drug: diphenhydrAMINE PO 25 mg PO once Route: PO; jw7 02:44 Follow up: Response: No adverse reaction jw7 00:11 Drug: Acetaminophen PO 500 mg PO once Route: PO; jw7 02:44 Follow up: Response: No adverse reaction jw7 00:11 Drug: Potassium Chloride PO 40 mEq PO once Route: PO; 7 02:44 Follow up: Response: No adverse reaction jw7 00:11 Drug: Furosemide PO 20 mg PO once Route: PO; 7 :44 Follow up: Response: No adverse reaction jw7 00:11 Drug: Ondansetron PO 4 mg PO once Route: PO; 7 :44 Follow up: Response: No adverse reaction jw7 Disposition Summary: 10/22/23 00:01 Hospitalization Ordered Notes: Hospitalization Status: Observation sp4 Provider: Toby Parks sp4 Location: Telemetry/MedSur (observation) sp4 Condition: Stable sp4 Problem: new sp4 Symptoms: have improved sp4 Bed/Room Type: Standard sp4 Room Assignment: 219(10/22/23 00:02) jb4 Diagnosis - Anemia, unspecified sp4 - Symptomatic anemia, anemia of chronic disease, dyspnea on exertion sp4 Discharge Instructions: - Discharge Summary Sheet jb4 Forms: - SBAR form jb4 - Medication Reconciliation Form sp4 - Leadership Thank You Letter sp4 Signatures: Dispatcher [employer] Mak Cardona RN RN jb4 Octavio Sy RN RN as6 Nicky Ryan RN RN jw7 Chavez Siddiqi MD MD sp4 Corrections: (The following items were deleted from the chart) 10/20 22:25 21:33 TYPE AND SCREEN+BB.LAB.BRZ ordered. LEOBARDONY BAILEY 10/21 00:02 00:01 sp4 jb4
--- NOTE | 2023-10-22 00:02 | ER ---
Nurse's Notes [facility] Name: Radha Ocampo Age: 83 yrs Sex: Female : 1940 Arrival Date: 10/21/2023 Time: 21:22 Bed 17 Private MD: Diagnosis: Anemia, unspecified;Symptomatic anemia, anemia of chronic disease, dyspnea on exertion Presentation: 10/20 21:35 Chief complaint: Patient states: sent by for blood transfusion and admission. as6 Coronavirus screen: At this time, the client does not indicate any symptoms associated with coronavirus-19. Ebola Screen: No symptoms or risks identified at this time. Initial Sepsis Screen: Does the patient meet any 2 criteria? No. Patient's initial sepsis screen is negative. Does the patient have a suspected source of infection? No. Patient's initial sepsis screen is negative. Risk Assessment: Do you want to hurt yourself or someone else? Patient reports no desire to harm self or others. Onset of symptoms was October 21, 2023. 21:35 Method Of Arrival: Wheelchair as6 21:35 Acuity: CIARA 3 as6 Historical: - Allergies: 21:38 Demerol; as6 21:38 meperidine HCl (rash); as6 21:38 Morphine; as6 - PMHx: 21:38 ADD/ADHD; Depression; DM chemical induced; giant cell arteritis; Giant Cell Arthritis; as6 Hyperlipidemia; Hypertension; Hypothyroidism; Myocardial infarction; renal cell carcinoma; renal cell carcinoma contained; stage 3 kidney failure; - PSHx: 21:38 Cholecystectomy; Gastric Bypass; hysterectomy; Right Nephrectomy; as6 - Immunization history:: Adult Immunizations up to date. - Social history:: Smoking status: Patient denies any tobacco usage or history of. - Family history:: not pertinent. Screenin:40 [facility] ED Fall Risk Assessment (Adult) History of falling in the last 3 months, jw7 including since admission Yes- single mechanical fall (1 pt) Confusion or Disorientation No (0 pts) Intoxicated or Sedated No (0 pts) Impaired Gait No (0 pts) Mobility Assist Device Used No (0 pt) Altered Elimination No (0 pt) Score/Fall Risk Level 0 - 2 = Low Risk Oriented to surroundings, Maintained a safe environment, Educated pt \T\ family on fall prevention, incl call for assistance when getting out of bed. Abuse screen: Denies threats or abuse. Denies injuries from another. Nutritional screening: No deficits noted. Tuberculosis screening: No symptoms or risk factors identified. Assessment: 21:40 General: Appears in no apparent distress. comfortable, Behavior is calm, cooperative. jw7 Pain: Denies pain. Neuro: Galarza Agitation-Sedation Scale (RASS): 0 - Alert and Calm Level of Consciousness is awake, alert, obeys commands, Oriented to person, place, time, situation. Cardiovascular: Heart tones S1 S2 present Capillary refill < 3 seconds Clubbing of nail beds is absent JVD is absent Patient's skin is warm and dry. Respiratory: Airway is patent Trachea midline Respiratory effort is even, unlabored, Respiratory pattern is regular, symmetrical, Breath sounds are clear bilaterally. GI: Abdomen is flat, non-distended, Bowel sounds present X 4 quads. Abd is soft and non tender X 4 quads. : No deficits noted. No signs and/or symptoms were reported regarding the genitourinary system. EENT: No deficits noted. No signs and/or symptoms were reported regarding the EENT system. Derm: Skin is intact, is healthy with good turgor, is fragile, is thin, Skin is dry, Skin is normal, Skin temperature is warm. Musculoskeletal: Circulation, motion, and sensation intact. Range of motion: intact in all extremities. 22:45 Reassessment: Patient appears in no apparent distress at this time. No changes from jw7 previously documented assessment. Patient and/or family updated on plan of care and expected duration. Pain level reassessed. Patient is alert, oriented x 3, equal unlabored respirations, skin warm/dry/pink. 23:50 Reassessment: Patient appears in no apparent distress at this time. No changes from jw7 previously documented assessment. Patient and/or family updated on plan of care and expected duration. Pain level reassessed. Patient is alert, oriented x 3, equal unlabored respirations, skin warm/dry/pink. / 01:00 Reassessment: Patient appears in no apparent distress at this time. No changes from jw7 previously documented assessment. Patient and/or family updated on plan of care and expected duration. Pain level reassessed. Patient is alert, oriented x 3, equal unlabored respirations, skin warm/dry/pink. 02:00 Reassessment: Patient appears in no apparent distress at this time. No changes from [facility] previously documented assessment. Patient and/or family updated on plan of care and expected duration. Pain level reassessed. Patient is alert, oriented x 3, equal unlabored respirations, skin warm/dry/pink. Vital Signs: 10/20 21:35 BP 153 / 54; Pulse 74; Resp 18 S; Temp 97.2(TE); Pulse Ox 99% on R/A; Weight 54.43 kg as6 (R); Height 5 ft. 0 in. (R); Pain 0/10; 22:30 BP 159 / 47; Pulse 70; Resp 16 S; Pulse Ox 97% on R/A; jw7 23:00 BP 127 / 109; Pulse 69; Resp 14 S; Pulse Ox 96% on R/A; jw7 10/21 00:00 BP 145 / 46; Pulse 76; Resp 13 S; Pulse Ox 97% on R/A; jw7 01:20 BP 149 / 50; Pulse 72; Resp 13 S; Temp 98.5(TE); Pulse Ox 95% on R/A; jw7 02:20 BP 160 / 66; Pulse 68; Resp 14 S; Pulse Ox 100% on 2 lpm NC; jw7 10/20 21:35 Body Mass Index 23.44 (54.43 kg, 152.4 cm) as6 10/20 21:35 Pain Scale: Adult as6 ED Course: 10/20 21:25 Patient arrived in ED. kj1 21:32 Chavez Siddiqi MD is Attending Physician. sp4 21:34 Arm band placed on. as6 21:38 Triage completed. as6 21:40 Patient has correct armband on for positive identification. Bed in low position. Call [facility] light in reach. Side rails up X2. 21:44 Nicky Ryan RN is Primary Nurse. jw7 22:23 Initial lab(s) drawn, by me, sent to lab. Inserted saline lock: 20 gauge in left [facility] antecubital area, using aseptic technique. Blood collected. 10/21 00:00 Toby Parks MD is Hospitalizing Provider. sp4 01:45 No provider procedures requiring assistance completed. Patient admitted, IV remains in [facility] place. 01:46 Provided Education on: Blood Transfusion, need for admit. jw7 Administered Medications: 00:11 Drug: Calcium Gluconate IVPB 1 grams IVPB once over 60 mins; (mix in NS 100 mL) Route: jw7 IVPB; Infused Over: 60 mins; Site: left antecubital; :44 Follow up: Response: No adverse reaction; IV Status: Completed infusion; IV Intake: [id number] 00:11 Drug: diphenhydrAMINE PO 25 mg PO once Route: PO; jw7 :44 Follow up: Response: No adverse reaction jw7 00:11 Drug: Acetaminophen PO 500 mg PO once Route: PO; jw7 :44 Follow up: Response: No adverse reaction jw7 00:11 Drug: Potassium Chloride PO 40 mEq PO once Route: PO; jw7 :44 Follow up: Response: No adverse reaction jw7 00:11 Drug: Furosemide PO 20 mg PO once Route: PO; jw7 :44 Follow up: Response: No adverse reaction jw7 00:11 Drug: Ondansetron PO 4 mg PO once Route: PO; jw7 :44 Follow up: Response: No adverse reaction jw7 Medication: 01:47 VIS not applicable for this client. jw7 Intake: 02:44 IV: 50ml; Total: 50ml. jw7 Outcome: 00:01 Decision to Hospitalize by Provider. sp4 01:46 Admitted to Med/surg accompanied by nurse, via stretcher, room 219, with oxygen, jw7 01:46 Condition: stable 01:46 Instructed on the need for admit, Demonstrated understanding of instructions, 02:44 Patient left the ED. jw7 Signatures: Clover Abel kj1 Octavio Sy RN RN as6 Nicky Ryan RN RN jw7 Chavez Siddiqi MD MD sp4
[2023-10-22 00:29] LABS: Band Neutrophils 9 % (0-1); Eosinophils 1 % (0-3)
[2023-10-22 00:30] LABS: Anisocytosis 2+; Blood Morphology Comment NOTED (NOT SEEN); Platelet Estimate ADEQ
[2023-10-22] MEDS ORDERED: NA CHLORIDE 0.9% 250 ML ONE (01:03)
[2023-10-22] MEDS: NA CHLORIDE 0.9% 250 ML ONE (03:59)
[2023-10-22] MEDS ORDERED: ONDANSETRON 4 MG/2 ML VIAL IV PRN (04:18)
[2023-10-22] MEDS ORDERED: ALBUTEROL 2.5 MG/3 ML NEB SOL NEB PRN (04:18)
[2023-10-22] MEDS ORDERED: ALPRAZOLAM 0.25 MG TABLET PO PRN (04:18)
[2023-10-22] MEDS ORDERED: ACETAMINOPHEN 325 MG TABLET PO PRN (04:18)
[2023-10-22 04:49] VITALS: BMI 24.7
[2023-10-22] MEDS: LEVOTHYROXINE SOD 0.075 MG TAB PO SCH (05:18)
[2023-10-22] MEDS: LOSARTAN POTASSIUM 50 MG TABLET ONE (06:00)
[2023-10-22 06:01] LABS: Specific Gravity < 1.005 (1.005-1.030); Urine Bacteria <20 /HPF (<20); Urine Bilirubin NEGATIVE (Negative); Urine Blood Trace (Negative); Urine Clarity Turbid (Clear); Urine Color Colorless (Yellow); Urine Glucose NEGATIVE (Negative); Urine Protein 1+ (Negative); Urine RBC <5 /HPF (None Seen); Urine Urobilinogen Normal (Normal); Urine pH 5.5 (5.0-7.0)
[2023-10-22] MEDS: DILTIAZEM HCL 120 MG SR CAP PO ONE (06:01)
[2023-10-22] MEDS: DILTIAZEM HCL 120 MG SR CAP PO SCH (06:02)
[2023-10-22] MEDS: LOSARTAN POTASSIUM 50 MG TABLET PO SCH (06:03)
[2023-10-22] MEDS: INSULIN REGULAR (HUMAN) 100 UNIT/ML SQ SCH (07:30)
[2023-10-22] MEDS: predniSONE 5 MG TAB PO SCH (08:38)
[2023-10-22] MEDS: PREGABALIN 75 MG CAP PO SCH (08:38)
[2023-10-22] MEDS: PANTOPRAZOLE 40MG TABLET PO SCH (08:38)
[2023-10-22 09:25] LABS: Absolute Eosinophils 0.1 K/uL (0-0.5); Absolute Lymphocytes (CBC) 1.2 K/uL (0.7-4.9); Basophils % 0.8 % (0-1.3); Hematocrit 26.4 % (36.0-45.0); Hemoglobin 8.6 g/dL (12.0-15.0); Lymphocytes % 42.3 % (15.3-44.8); MCV 93.9 fL (80-100); MPV 7.4 fL (7.6-11.3); Platelets 139 thou/uL (152-406); RBC Red Blood Cell Count 2.81 M/uL (3.86-4.86)
[2023-10-22 10:23] VITALS: BP 208/95; TEMP 97.2
--- NOTE | 2023-10-22 12:08 | P.SSS ---
Patient History Date of Service: 10/22/23 Reason for admission: anemia History of Present Illness: COMFORT WELLER IS AN ELDERLY LADY WITH MANY MEDICALL ISSUES IN ADDITION TO RECURRENT IRON DEFICIENCY ANEMIA BURTON BY DR. WISDOM. SHE HAD LAB DONE AT [facility] AND THEY CALLED ME WITH HG OF 6.1. I ASKED HER TO GET ADMITTED AND GET BLOOD. BURTON WILL CONTINUE ON OUTPATIENT BASIS. SHE IS STABLE FOR DISCHARGE. THERE IS NO ACUTE BLEEDING. 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 3. 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 WISDOM IS DOING IRON INFUSION. HE IS NOT FINDING ANY BLEEDING SOURCE. SHE IS NOT ABSORBING IRON. DR. WISDOM IS DOING IRON INFUSION. HE IS NOT FINDING ANY BLEEDING SOURCE. SHE IS NOT ABSORBING IRON. 2022 Chronic head pain [R51.9, G89.29] BOTOX , DID NOT WORK. BOTOX , DID NOT WORK. 2022 Immunosuppressed status [D84.9 0.7] 2022 DARREL (obstructive sleep apnea) [G47.33] 2022 Back pain [M54.9] UA NEG, CT NEG, MRI SPINE NEG. NO FOCAL SIGNS. ALL AT [facility] ADMISSION. UA NEG, CT NEG, MRI SPINE NEG. NO FOCAL SIGNS. ALL AT [facility] ADMISSION. 2022 Nausea [R11.0] 2022 Back pain [M54.9] 2022 Gastric band malfunction [K95.09] Allergies meperidine HCl [From Demerol] Allergy (Verified 08/04/23 14:54) hallucinations Sulfa (Sulfonamide Antibiotics) Adverse Reaction (Verified 08/04/23 14:54) Nausea/Vomiting Morphine Allergy (Uncoded 08/04/23 14:54) hallucinations Home medications list reviewed: Yes Home Medications: Levothyroxine [Synthroid*] 100 mcg PO DAILY 03/25/20 Losartan Potassium 100 mg PO DAILY 03/25/20 Insulin Glargine,Hum.rec.anlog [Lantus] 15 units SQ PRN 11/01/20 Omeprazole [Prilosec] 40 mg PO DAILY 11/01/20 Rosuvastatin Calcium 40 mg PO DAILY 11/01/20 Furosemide 20 mg PO DAILY 10/22/23 Potassium Oral Tab [Klor-Con 10 mEq Tab] 10 meq PO BID #60 tab 10/22/23 Pregabalin [Lyrica*] 75 mg PO TID 10/22/23 Venlafaxine HCl [Venlafaxine HCl ER] 75 mg PO DAILY 10/22/23 - Past Medical/Surgical History Has patient received pneumonia vaccine in the past: Yes Diabetic: Yes -: Herpes -: Hypothyroidisim -: Hypertension -: High Cholesterol -: Depression -: GERD -: Giant Cell Arteritis -: Kidney Cancer -: Neuropathy -: DM (chemical induced) -: Nephrectomy Right -: Gastric bypass -: Hysterectomy -: Hernia Repair - Family History Father -: Cancer Notes: - Lung Cancer Mother Notes: - Congestive heart failure, Diabetes - Social History Smoking Status: Never smoker Alcohol use: No CD- Drugs: No Caffeine use: No Place of Residence: Home Review of Systems 10-point ROS is otherwise unremarkable General: Weakness Physical Examination - Vital Signs Temperature: 97.2 F Blood Pressure: 208/95 Pulse: 72 Respirations: 14 Pulse Ox (%): 98 - Physical Exam General: Alert, In no apparent distress, Other (PALLOR) HEENT: Atraumatic, PERRLA, Mucous membr. moist/pink, EOMI, Sclerae nonicteric Neck: Supple, 2+ carotid pulse no bruit, No LAD, Without JVD or thyroid abnormality Respiratory: Clear to auscultation bilaterally, Normal air movement Cardiovascular: Regular rate/rhythm, Normal S1 S2 Gastrointestinal: Normal bowel sounds, No tenderness Musculoskeletal: No tenderness Integumentary: No rashes Neurological: Normal gait, Normal speech, Normal strength at 5/5 x4 extr, Normal tone, Normal affect Lymphatics: No axilla or inguinal lymphadenopathy - Studies Laboratory Data (last 24 hrs) 10/21/23 10/21/23 10/21/23 22:14 22:14 22:14 WBC 2.90 L Hgb 6.0 L Hct 18.7 L Plt Count 157 PT 11.7 INR 1.07 Sodium 143 Potassium 3.2 L BUN 28 H Creatinine 1.20 H Glucose 101 Total Bilirubin 0.4 AST 11 L ALT 18 Alkaline Phosphatase 67 - Diagnosis (Problem(s)) (1) Severe anemia Current Visit: No Status: Chronic Plan: BURTON IS DONE BY US SHE HAS IRON DEFICIENCY SHE HAD EGD AND CRC BY DR. WISDOM. CHANTELL WITH HIM. BLOOD GIVEN HG IS UP TO 8.6 STABLE FOR HOME. - Disposition Disposition: ROUTINE DISCHARGE Condition: FAIR
[2023-10-22 14:14] VITALS: O2SAT 96
[2023-10-22] MEDS ORDERED: ROSUVASTATIN 10 MG TAB PO SCH (21:00)
--- NOTE | 2023-10-23 14:19 | EKG ---
Test Date: 2023-10-21 Test Time: 22:32:27 Leasing Property Manager: LLOYD MEASUREMENT RESULTS: Intervals: Rate: 70 OR: 160 QRSD: 88 QT: 384 QTc: 414 [place]: P: 53 OR: 160 QRS: 35 T: 86 INTERPRETIVE STATEMENTS: Normal sinus rhythm Nonspecific ST and T wave abnormality Abnormal ECG Compared to ECG 05/07/2023 00:23:47 No significant changes Electronically Signed On 10-23-23 14:14:03 INTERNAL COMBUSTION ENGINE SUBASSEMBLER by Antonio See
== END 2023-10-22 13:18 | disposition home or self-care (01) ==
LOC: ER 21:22 → ERHOLD 23:49 → 2ND 10-22 01:57
PROVIDERS: ADMIT Internal Medicine; ATTEND Internal Medicine
PROC: 30233N1 Transfusion of Nonautologous Red Blood Cells into Peripheral Vein, Percutaneous Approach (ICD-10-PCS; principal; 2023-10-22)
DX: D64.9 Anemia, unspecified (principal); E03.8 Other specified hypothyroidism; I10 Essential (primary) hypertension; E78.00 Pure hypercholesterolemia, unspecified; K21.9 Gastro-esophageal reflux disease without esophagitis; E11.9 Type 2 diabetes mellitus without complications; Z85.528 Personal history of other malignant neoplasm of kidney
CPT/HCPCS: 93005; 85025 ×2; 81001; 80048; 36415; 86900; 86850; 85610; 86901; 82947 ×2; 80076; 86920 ×2; 84484; 83880; 36430; J7512; Q0162; J0612; P9016 ×2; J7050 ×2; 96365; 96366; 99285; G0378

== ENCOUNTER 2023-11-17 22:09 | Inpatient (IN) | payer OTHER ==
[2023-11-17 23:48] LABS: Absolute Lymphocytes (CBC) 0.4 K/uL (0.7-4.9); Absolute Monocytes 0.6 K/uL (0.1-1.3); Absolute Neutrophil 1.2 K/uL (1.8-8.0); Basophils % 0.7 % (0-1.3); Eosinophils % 0.2 % (0-4.4); Hematocrit 19.9 % (36.0-45.0); Hemoglobin 6.5 g/dL (12.0-15.0); MCH 31.5 pg (27.0-35.0); MCHC 32.6 g/dL (32.0-36.0); MCV 96.5 fL (80-100); MPV 7.6 fL (7.6-11.3); Monocytes % 28.1 % (3.3-12.3); Nucleated Red Blood Cells % 0.2 % (0-0); Platelets 221 thou/uL (152-406); RBC Red Blood Cell Count 2.07 M/uL (3.86-4.86)
[2023-11-17 23:49] LABS: PT Prothrombin Time 11.4 SECONDS (9.5-12.5); Protime INR 1.04
[2023-11-18 00:01] LABS: Albumin 2.9 g/dL (3.4-5.0); Albumin/Globulin Ratio 0.9 (1.1-1.8); Anion Gap 9.8 mEq/L (5.0-15.0); Bilirubin Direct 0.1 mg/dL (0-0.2); Bilirubin Indirect, Calculated 0.3 mg/dL (0.2-0.8); Bilirubin Total 0.4 mg/dL (0.2-1.0); Globulin 3.1 g/dL (2.3-3.5); Potassium 3.8 mEq/L (3.5-5.1)
[2023-11-18 00:05] LABS: Troponin High Sensitivity 151.1 pg/mL (<58.9)
[2023-11-18] MEDS ORDERED: DIPHENHYDRAMINE 25 MG TAB/CAP ONE (00:49)
[2023-11-18] MEDS ORDERED: NA CHLORIDE 0.9% 0 ML ONE (00:49)
[2023-11-18] MEDS ORDERED: ACETAMINOPHEN 500 MG TAB ONE (00:49)
[2023-11-18] MEDS ORDERED: CALCIUM GLUCONATE 1 GM IVPB 1 GM/50 ML BAG IV ONE (00:50)
[2023-11-18] MEDS ORDERED: ALBUMIN HUMAN 25% 100 ML IV ONE (00:50)
[2023-11-18] MEDS ORDERED: NA CHLORIDE 0.9% 250 ML ONE (01:11)
--- NOTE | 2023-11-18 01:31 | EDPHYS ---
Physician Documentation [facility] Name: Radha Ocampo Age: 83 yrs Sex: Female : 1940 Arrival Date: 11/17/2023 Time: 22:09 Bed 2 Private MD: Toby Parks V ED Physician Chavez Siddiqi HPI: 11/16 22:21 This 83 yrs old Female presents to ER via Unassigned with complaints of Pt sp4 was sent by Dr Parks for a blood transfusion. 11/17 01:45 Patient presents with hemoglobin 6.2 sent here by her primary MD for blood transfusion. sp4 Patient's hemoglobin was collected this morning at her primary physician's office Dr. Parks. Patient reports that for the past several days she has had generalized weakness fatigue shortness of breath on physical exertion. Denies chest pain. Past medical history includes intracranial meningioma, hypothyroidism, dyslipidemia, diplopia, Prinzmetal's angina, hyponatremia, temporal arteritis, pancytopenia, B12 deficiency, tubular adenoma of the colon, iron deficiency anemia, without significant bleeding source, chronic headache, obstructive sleep apnea, back pain, nausea, gastric band malfunction. Medications include Synthroid, losartan, insulin, omeprazole, rosuvastatin, furosemide, potassium, pregabalin, venlafaxine. Additional past medical history includes hypertension, hypercholesterolemia, depression, GERD, giant cell arteritis, kidney cancer, neuropathy, diabetes mellitus, nephrectomy right, gastric bypass, hysterectomy, hernia repair. Historical: - Allergies: 11/16 22:33 Morphine; lg3 22:33 meperidine HCl (rash); lg3 22:33 Demerol; lg3 - Home Meds: 22:33 folic acid 1 mg oral tablet daily [Active]; levothyroxine 100 mcg tablet 1 tab daily lg3 [Active]; losartan 100 mg oral tablet 1 tab daily [Active]; pregabalin 75 mg Oral capsule 1 cap daily [Active]; omeprazole 40 mg Oral capsule,delayed release (e.c.) 1 cap daily [Active]; potassium chloride 10 mEq Oral tablet, extended release 1 tab 2 times per day [Active]; prednisone 5 mg Oral tablet daily [Active]; rosuvastatin 40 mg oral tablet 1 tab daily [Active]; venlafaxine 75 mg oral tablet 1 tab daily [Active]; Azo-Standard Oral daily [Active]; - PMHx: 22:33 ADD/ADHD; Depression; DM chemical induced; giant cell arteritis; Giant Cell Arthritis; lg3 Hyperlipidemia; Hypertension; Hypothyroidism; Myocardial infarction; renal cell carcinoma; renal cell carcinoma contained; stage 3 kidney failure; - PSHx: 22:33 Cholecystectomy; Gastric Bypass; hysterectomy; Right Nephrectomy; lap band (Right lg3 Nephrectomy); - Immunization history:: Adult Immunizations up to date, Client reports receiving the 2nd dose of the Covid vaccine, Flu vaccine is not up to date. - Infectious Disease History:: Denies. - Social history:: Smoking status: Patient denies any tobacco usage or history of. Patient/guardian denies using alcohol, street drugs. - Family history:: not pertinent. ROS: 11/17 01:45 Constitutional: Negative for fever, chills, and weight loss, positive anemia, positive sp4 generalized weakness, positive dyspnea on exertion All other systems are negative, Exam: 01:45 Constitutional: This is a well developed, well nourished patient who is awake, alert, sp4 pale appearing elderly female Head/Face: Normocephalic, atraumatic. Eyes: Pupils equal round and reactive to light, extra-ocular motions intact. Lids and lashes normal. Conjunctiva and sclera are not injected. Cornea within normal limits. Periorbital areas with no swelling, redness, or edema. ENT: Nares patent. No nasal discharge, no septal abnormalities noted. Tympanic membranes are normal and external auditory canals are clear. Oropharynx with no redness, swelling, or masses, exudates, or evidence of obstruction, uvula midline. Mucous membranes moist. Neck: Trachea midline, no thyromegaly or masses palpated, and no cervical lymphadenopathy. Supple, full range of motion without nuchal rigidity, or vertebral point tenderness. Chest/axilla: Normal chest wall appearance and motion. Nontender with no deformity. No lesions are appreciated. Cardiovascular: Regular rate and rhythm with a normal S1 and S2. No gallops, murmurs, or rubs. Normal PMI, no JVD. No pulse deficits. Respiratory: Lungs have equal breath sounds bilaterally, clear to auscultation and percussion. No rales, rhonchi or wheezes noted. No increased work of breathing, no retractions or nasal flaring. Abdomen/GI: Soft, with normal bowel sounds. No distension or tympany. No guarding or rebound. No evidence of tenderness throughout. Back: No spinal tenderness. No costovertebral tenderness. Skin: Warm, dry with normal turgor. Generalized pallor, with no rashes, no lesions, and no evidence of cellulitis. MS/ Extremity: Pulses equal, no cyanosis. Neurovascular intact. Full, normal range of motion. Neuro: Awake and alert, GCS 15, oriented to person, place, time, and situation. Cranial nerves II-XII grossly intact. Motor strength 5/5 in all extremities. Sensory grossly intact. Psych: Awake, alert, with orientation to person, place and time. Behavior, mood, and affect are within normal limits 01:45 ECG was reviewed by the Attending Physician. EKG at 0 127 reveals normal sinus rhythm at rate of 69 01:45 Abdomen/GI: Rectal exam in the presence of laborer stores reveals no melena, no bright red blood, no maroon stool, no mass and no hemorrhoid, Vital Signs: 11/16 22:30 BP 157 / 50; Pulse 70; Resp 16 S; Temp 97.2(TE); Pulse Ox 99% on R/A; Weight 54.43 kg lg3 (R); Height 5 ft. 0 in. (R); Pain 6/10; 23:34 BP 141 / 47; Pulse 66; Resp 16; Pulse Ox 98% on R/A; rv 02 00:00 BP 139 / 48; Pulse 65; Resp 16; Pulse Ox 96% on R/A; rv 00:30 BP 142 / 52; Pulse 69; Resp 18; Pulse Ox 95% on R/A; rv 00:45 BP 138 / 48; Pulse 68; Resp 16; Pulse Ox 96% on R/A; rv 01:30 BP 138 / 54; Pulse 64; Resp 17; Pulse Ox 95% ; Pain 0/10; jj7 02:30 BP 150 / 48; Pulse 70; Resp 16; Pulse Ox 96% ; jj7 03:31 BP 161 / 60; Pulse 69; Resp 14; Pulse Ox 95% ; Pain 0/10; jj7 11/16 22:30 Body Mass Index 23.44 (54.43 kg, 152.4 cm) lg3 04/01 22:30 Pain Scale: Adult lg3 01:30 Pain Scale: Adult jj7 03:31 Pain Scale: Adult jj7 Freedom Coma Score: 01:45 Eye Response: spontaneous(4). Motor Response: obeys commands(6). Verbal Response: sp4 oriented(5). Total: 15. MDM: 11/16 22:20 Patient medically screened. kb 11/17 00:45 ED course: EXAMINATION: XR CHEST 1 VIEW INDICATION: Female, 83 years old, ANEMIA sp4 TECHNIQUE: 1 view COMPARISON(S): 05/06/2023 FINDINGS: SUPPORT DEVICES: None. LUNGS/PLEURA: Redemonstration of coarse bilateral basilar interstitial markings. Chronic blunting of the costophrenic angles and flattening of hemidiaphragms. No evidence of acute consolidation. No pneumothorax. HEART/MEDIASTINUM: Enlarged heart size with central pulmonary vascular prominence. Aortic atherosclerosis. OTHER: No acute osseous findings. IMPRESSION: No acute cardiopulmonary findings or significant interval change from prior exam. . 01:50 Differential Diagnosis altered mental status, sepsis, flu, Symptomatic anemia. Data sp4 reviewed: vital signs, nurses notes, old medical records, lab test result(s), EKG, radiologic studies, plain films. Consideration of Admission/Observation Patient was admitted/placed on observation. Escalation of care including admission/observation considered. Management of patient was discussed with the following: Hospitalist: Kasey VERGARA . Environmental Officer: Mayi VERGARA - Cardiology . ED course: Patient was ordered 3 units of blood and admitted for blood transfusion.. Opponent elevation is secondary to symptomatic anemia. EKG is normal. Anticoagulation not indicated at this time. . 11/16 22:22 Order name: Basic Metabolic Panel; Complete Time: 00:41 sp4 11/16 22:22 Order name: CBC with Diff; Complete Time: 02:05 sp4 11/16 22:22 Order name: PT-INR; Complete Time: 00:05 sp4 11/16 22:22 Order name: Troponin HS; Complete Time: 00:41 sp4 11/16 22:23 Order name: LFT's; Complete Time: 00:41 sp4 11/16 22:23 [facility] 11/16 22:26 Order name: ABO/RH typing [facility] 11/16 22:26 Order name: Antibody Screen [facility] 11/17 00:24 Order name: Manual Differential; Complete Time: 02:05 EDMS 11/16 22:22 Order name: XRAY Chest (1 view) sp4 11/16 22:22 Order name: EKG; Complete Time: 22:22 sp4 11/17 02:05 Order name: CONS Physician Consult EDNM 11/16 22:22 Order name: Cardiac monitoring; Complete Time: 00:06 sp4 11/16 22:22 Order name: EKG - Nurse/Tech; Complete Time: 00:06 sp4 11/16 22:22 Order name: IV Saline Lock; Complete Time: 00:06 sp4 11/16 22:22 Order name: Labs collected and sent; Complete Time: 00:06 sp4 11/16 22:22 Order name: O2 Per Protocol; Complete Time: 00:06 sp4 11/16 22:22 Order name: O2 Sat Monitoring; Complete Time: 00:06 sp4 EC:45 Rate is 69 beats/min. Rhythm is regular, Normal Sinus Rhythm. QRS [place] is Normal. [place] sp4 interval is normal. QRS interval is normal. QT interval is normal. No Q waves. T waves are Normal. No ST changes noted. Clinical impression: Normal ECG. Interpreted by me. Reviewed by me. Administered Medications: 00:57 Drug: Acetaminophen PO 500 mg PO once Route: PO; 7 01:43 Follow up: Response: No adverse reaction j7 00:58 Drug: diphenhydrAMINE PO 25 mg PO once Route: PO; 7 01:43 Follow up: Response: No adverse reaction jj7 01:14 Drug: Calcium Gluconate IVPB 1 grams IVPB once over 60 mins; (mix in NS 100 mL) Route: jj7 IVPB; Infused Over: 30 mins; Site: left antecubital; 01:42 Follow up: IV Status: Completed infusion j7 01:42 Drug: Albumin IVPB 25 grams 100 ml IVPB once; (Note: Albumin 25% concentration) Volume: jj7 100 ml; Route: IVPB; Site: left antecubital; 02:35 Follow up: IV Status: Completed infusion jj7 Disposition Summary: 11/18/23 01:30 Hospitalization Ordered Notes: Hospitalization Status: Inpatient Admission sp4 Provider: Toby Parks sp4 [facility] sp4 Condition: Stable sp4 Problem: new sp4 Symptoms: have improved sp4 Bed/Room Type: Standard sp4 Room Assignment: 417(11/18/23 02:15) cg Diagnosis - Anemia, unspecified sp4 - Anemia of chronic disease, symptomatic anemia, demand ischemia with elevated sp4 troponin Forms: - Medication Reconciliation Form sp4 - SBAR form sp4 - Leadership Thank You Letter sp4 Signatures: Dispatcher [employer] EDMS Azra Abel, RADIOGRAPHER MAMMOGRAPHER-C RADIOGRAPHER MAMMOGRAPHER-Elly Bird, RN RN cg Janki Khan RN RN lg3 Bernabe Packer RN RN jj7 Chavez Siddiqi MD MD sp4 Corrections: (The following items were deleted from the chart) 11/16 22:22 22:22 BASIC METABOLIC PANEL+C.LAB.BRZ ordered. EDMS EDMS 22:22 22:22 CBC+H.LAB.BRZ ordered. EDMS EDMS 22:22 22:22 PROTIME (+INR)+COAG.LAB.BRZ ordered. EDMS EDMS 22:22 22:22 Troponin High Sensitivity+C.LAB.BRZ ordered. EDMS EDMS 22:23 22:23 HEPATIC FUNCTION+C.LAB.BRZ ordered. EDMS EDMS 22:23 22:23 PACKED RBC LEUKORED+BB.LAB.BRZ ordered. EDMS EDMS 22:47 22:22 TYPE AND SCREEN+BB.LAB.BRZ ordered. EDMS EDMS 11/17 02:15 01:30 sp4 cg
--- NOTE | 2023-11-18 01:31 | ER ---
Nurse's Notes [facility] Name: Radha Ocampo Age: 83 yrs Sex: Female : 1940 Arrival Date: 11/17/2023 Time: 22:09 Bed 2 Private MD: Toby Parks V Diagnosis: Anemia, unspecified;Anemia of chronic disease, symptomatic anemia, demand ischemia with elevated troponin Presentation: 11/16 22:30 Chief complaint: Patient states: sent by Dr. Parks for low hemoglobin. Coronavirus lg3 screen: Client denies travel out of the [place] in the last 14 days. At this time, the client does not indicate any symptoms associated with coronavirus-19. Ebola Screen: No symptoms or risks identified at this time. Initial Sepsis Screen: Does the patient meet any 2 criteria? No. Patient's initial sepsis screen is negative. Does the patient have a suspected source of infection? No. Patient's initial sepsis screen is negative. Risk Assessment: Do you want to hurt yourself or someone else? Patient reports no desire to harm self or others. Onset of symptoms is unknown. 22:30 Method Of Arrival: Wheelchair lg3 22:30 Acuity: CIARA 3 lg3 Triage Assessment: 22:33 General: Appears in no apparent distress. comfortable, Behavior is calm, cooperative. lg3 Pain: Complains of pain in abdomen. EENT: No deficits noted. No signs and/or symptoms were reported regarding the EENT system. Neuro: No deficits noted. Galarza Agitation-Sedation Scale (RASS): 0 - Alert and Calm Level of Consciousness is awake, alert, obeys commands, Oriented to person, place, time, situation, Reports weakness. Cardiovascular: No deficits noted. Denies chest pain, shortness of breath, Capillary refill < 3 seconds Clubbing of nail beds is absent JVD is absent Patient's skin is warm and dry. Respiratory: No deficits noted. Airway is patent Respiratory effort is even, unlabored, Respiratory pattern is regular, symmetrical. GI: No deficits noted. Abdomen is round non-distended, Reports lower abdominal pain, upper abdominal pain. : No deficits noted. No signs and/or symptoms were reported regarding the genitourinary system. Derm: No deficits noted. No signs and/or symptoms reported regarding the dermatologic system. Skin is intact, is thin, Skin is dry, Skin is normal, Skin temperature is warm. Musculoskeletal: No deficits noted. No signs and/or symptoms reported regarding the musculoskeletal system. Circulation, motion, and sensation intact. Range of motion: intact in all extremities. Historical: - Allergies: 22:33 Morphine; lg3 22:33 meperidine HCl (rash); lg3 22:33 Demerol; lg3 - Home Meds: 22:33 folic acid 1 mg oral tablet daily [Active]; levothyroxine 100 mcg tablet 1 tab daily lg3 [Active]; losartan 100 mg oral tablet 1 tab daily [Active]; pregabalin 75 mg Oral capsule 1 cap daily [Active]; omeprazole 40 mg Oral capsule,delayed release (e.c.) 1 cap daily [Active]; potassium chloride 10 mEq Oral tablet, extended release 1 tab 2 times per day [Active]; prednisone 5 mg Oral tablet daily [Active]; rosuvastatin 40 mg oral tablet 1 tab daily [Active]; venlafaxine 75 mg oral tablet 1 tab daily [Active]; Azo-Standard Oral daily [Active]; - PMHx: 22:33 ADD/ADHD; Depression; DM chemical induced; giant cell arteritis; Giant Cell Arthritis; lg3 Hyperlipidemia; Hypertension; Hypothyroidism; Myocardial infarction; renal cell carcinoma; renal cell carcinoma contained; stage 3 kidney failure; - PSHx: 22:33 Cholecystectomy; Gastric Bypass; hysterectomy; Right Nephrectomy; lap band (Right lg3 Nephrectomy); - Immunization history:: Adult Immunizations up to date, Client reports receiving the 2nd dose of the Covid vaccine, Flu vaccine is not up to date. - Infectious Disease History:: Denies. - Social history:: Smoking status: Patient denies any tobacco usage or history of. Patient/guardian denies using alcohol, street drugs. - Family history:: not pertinent. Screenin:31 [facility] ED Fall Risk Assessment (Adult) History of falling in the last 3 months, rv including since admission No falls in past 3 months (0 pts) Score/Fall Risk Level 0 - 2 = Low Risk Oriented to surroundings, Maintained a safe environment, Educated pt \T\ family on fall prevention, incl call for assistance when getting out of bed, Assessed \T\ reinforced patient's understanding of fall precautions. Abuse screen: Denies threats or abuse. Denies injuries from another. Nutritional screening: No deficits noted. Tuberculosis screening: No symptoms or risk factors identified. Assessment: 23:31 General: Appears comfortable, Behavior is calm, cooperative. Pain: Denies pain. Neuro: rv Level of Consciousness is awake, alert, obeys commands, Oriented to person, place, time, situation. Cardiovascular: Capillary refill < 3 seconds Patient's skin is warm and dry. Respiratory: Airway is patent Respiratory effort is even, unlabored. Derm: Skin is intact. 11/17 02:27 Reassessment: SBAR FAXED TO 4TH FLOOR. NO ANSWER WHEN ATTEMPTED TO CALL FOR jj7 VERIFICATION. 02:38 Reassessment: HOUSE SUP CALLED AND INFORMED THAT SBAR WAS FAXED TO 4TH FLOOR AND NO jj7 ANSWER. Vital Signs: 11/16 22:30 BP 157 / 50; Pulse 70; Resp 16 S; Temp 97.2(TE); Pulse Ox 99% on R/A; Weight 54.43 kg lg3 (R); Height 5 ft. 0 in. (R); Pain 6/10; 23:34 BP 141 / 47; Pulse 66; Resp 16; Pulse Ox 98% on R/A; rv 02 00:00 BP 139 / 48; Pulse 65; Resp 16; Pulse Ox 96% on R/A; rv 00:30 BP 142 / 52; Pulse 69; Resp 18; Pulse Ox 95% on R/A; rv 00:45 BP 138 / 48; Pulse 68; Resp 16; Pulse Ox 96% on R/A; rv 01:30 BP 138 / 54; Pulse 64; Resp 17; Pulse Ox 95% ; Pain 0/10; jj7 02:30 BP 150 / 48; Pulse 70; Resp 16; Pulse Ox 96% ; jj7 03:31 BP 161 / 60; Pulse 69; Resp 14; Pulse Ox 95% ; Pain 0/10; jj7 11/16 22:30 Body Mass Index 23.44 (54.43 kg, 152.4 cm) lg3 11/16 22:30 Pain Scale: Adult lg3 01:30 Pain Scale: Adult jj7 03:31 Pain Scale: Adult jj7 [place] Coma Score: 01:45 Eye Response: spontaneous(4). Motor Response: obeys commands(6). Verbal Response: sp4 oriented(5). Total: 15. ED Course: 11/16 22:18 Patient arrived in ED. gm2 22:20 Toby Parks MD is Private Physician. gm2 22:20 [facility]C [facility] kb 22:20 Chavez Siddiqi MD is Attending Physician. kb 22:33 Triage completed. lg3 22:33 Arm band placed on right wrist. lg3 22:49 Chavez Siddiqi MD is Attending Physician. kb 23:23 XRAY Chest (1 view) In Process Unspecified. EDMS 23:31 Patient has correct armband on for positive identification. Client placed on continuous rv cardiac and pulse oximetry monitoring. NIBP monitoring applied. playground monitor on. 23:31 No provider procedures requiring assistance completed. rv 23:31 Initial lab(s) drawn, by ED staff, sent to lab. rv 23:33 Assisted to bathroom. kmf 23:33 Inserted saline lock: 20 gauge in left antecubital area, using aseptic technique. Blood kmf collected. 23:34 Door closed. Lights dimmed. Warm blanket given. kmf 23:34 LFT's Sent. kmf 23:34 PRBC Sent. kmf 23:34 Antibody Screen Sent. kmf 23:34 ABO/RH typing Sent. kmf 23:34 Basic Metabolic Panel Sent. kmf 23:34 CBC with Diff Sent. kmf 23:34 PT-INR Sent. kmf 23:34 Troponin HS Sent. kmf 11/17 01:13 Consent for blood and/or blood product transfusion explained by physician, signed by jj7 patient. 01:28 Toby Parks MD is Hospitalizing Provider. sp4 03:30 Patient admitted, IV remains in place. jj7 Administered Medications: 00:57 Drug: Acetaminophen PO 500 mg PO once Route: PO; j7 01:43 Follow up: Response: No adverse reaction jj7 00:58 Drug: diphenhydrAMINE PO 25 mg PO once Route: PO; jj7 01:43 Follow up: Response: No adverse reaction jj7 01:14 Drug: Calcium Gluconate IVPB 1 grams IVPB once over 60 mins; (mix in NS 100 mL) Route: jtangela IVPB; Infused Over: 30 mins; Site: left antecubital; 01:42 Follow up: IV Status: Completed infusion jj7 01:42 Drug: Albumin IVPB 25 grams 100 ml IVPB once; (Note: Albumin 25% concentration) Volume: jj7 100 ml; Route: IVPB; Site: left antecubital; 02:35 Follow up: IV Status: Completed infusion jj7 Medication: 11/16 23:31 VIS not applicable for this client. rv Outcome: 11/17 01:30 Decision to Hospitalize by Provider. spCortney 03:26 Admitted to Med/surg accompanied by tech, via stretcher, room 417, Report called to cjShiv SBAR FAXED AT [id number]. SPOKE WITH HOUSE SUP WHEN ATTEMPTS TO CALL WENT UNANSWERED. SPOKE TO [place] \[id number] TO INFORM THEM PT WOULD BE COMING UP 03:26 Condition: improved 03:32 Patient left the ED. jj7 Signatures: Dispatcher [employer] EDMS Azra Abel, FABIOLAC INPATIENT NURSING AIDE-CkDemetrius Solis RN RN Janki Ugalde RN CONCETTA [id number] Bernabe Packer RN RN jjChavez Cleary MD MD sp4 Marbella Jaimes Kelsey Maroul [facility]
[2023-11-18 01:46] LABS: Band Neutrophils 22 % (0-1); Differential Total Cells Count 100; Lymphocytes 19 % (15-42); Metamyelocytes 1 % (0-0); Monocytes 10 % (0-10); Nucleated Red Blood Cells 1 /100WBC; Reactive Lymphocytes 11 %; Segmented Neutrophils 37 % (40-80)
[2023-11-18 01:47] LABS: Anisocytosis 2+; Blood Morphology Comment NOTED (NOT SEEN); Platelet Estimate ADEQ
[2023-11-18] MEDS ORDERED: ALBUTEROL 2.5 MG/3 ML NEB SOL NEB PRN (04:27)
[2023-11-18] MEDS ORDERED: ALPRAZOLAM 0.25 MG TABLET PO PRN (04:27)
[2023-11-18] MEDS ORDERED: ONDANSETRON 4 MG/2 ML VIAL IV PRN (04:27)
[2023-11-18] MEDS ORDERED: MORPHINE 2 MG/ML SYR IV PRN (04:27)
[2023-11-18] MEDS ORDERED: ACETAMINOPHEN 325 MG TABLET PO PRN (04:27)
[2023-11-18] MEDS: HYDRALAZINE HCL 20 MG/ML VIAL IV PRN (04:58)
[2023-11-18] MEDS: NA CHLORIDE 0.9% 250 ML ONE (05:30)
[2023-11-18] MEDS: INSULIN REGULAR (HUMAN) 100 UNIT/ML SQ SCH (07:30)
[2023-11-18] MEDS ORDERED: HOME MED 1 EA UNK (Omeprazole [Prilosec] 40 MG Capsule.Dr) PO SCH (09:00)
[2023-11-18] MEDS: PROPRANOLOL HCL 10 MG TAB PO SCH (09:18)
[2023-11-18] MEDS: PREGABALIN 75 MG CAP PO SCH (09:18)
[2023-11-18] MEDS: POTASSIUM CL SA 10 MEQ TAB PO SCH (09:18)
[2023-11-18] MEDS: LOSARTAN POTASSIUM 50 MG TABLET PO SCH (09:18)
[2023-11-18] MEDS: PANTOPRAZOLE 40MG TABLET PO SCH (09:19)
[2023-11-18] MEDS: FOLIC ACID 1 MG TABLET PO SCH (09:19)
[2023-11-18] MEDS: VENLAFAXINE HCL XR 75 MG CAP PO SCH (09:19)
[2023-11-18] MEDS: LEVOTHYROXINE SOD 0.1 MG TAB PO SCH (09:24)
[2023-11-18] MEDS: predniSONE 5 MG TAB PO SCH (09:24)
[2023-11-18] MEDS: ROSUVASTATIN 10 MG TAB PO SCH (09:25)
[2023-11-18 09:49] LABS: Percent Reticulocyte Count 0.98 % (0.4-2.05); RBC Red Blood Cell Count 2.79 M/uL (3.86-4.86)
[2023-11-18 11:33] LABS: Ferritin 698.6 ng/mL (8-388); Transferrin 113 mg/dL (200-360)
[2023-11-18 13:21] VITALS: O2SAT 95
--- NOTE | 2023-11-18 13:27 | EKG ---
Test Date: 2023-11-18 Test Time: 01:27:35 Manager Online: REN MEASUREMENT RESULTS: Intervals: Rate: 69 IA: 164 QRSD: 80 QT: 406 QTc: 435 Stevenson: P: 48 IA: 164 QRS: 18 T: 33 INTERPRETIVE STATEMENTS: Normal sinus rhythm Normal ECG Compared to ECG 10/21/2023 22:32:27 ST (T wave) deviation no longer present Electronically Signed On 11-18-23 13:26:56 CDT by Antonio See
[2023-11-18] MEDS: cloNIDine HCL 0.1 MG TAB PO PRN (13:34)
--- NOTE | 2023-11-18 14:05 | RAD REPORT ---
EXAM DESCRIPTION: RAD - Chest Single View - 11/17/2023 11:21 pm CLINICAL HISTORY: Female, 83 years old, ANEMIA TECHNIQUE: 1 view COMPARISON: 05/06/2023 FINDINGS: SUPPORT DEVICES: None. LUNGS/PLEURA: Redemonstration of coarse bilateral basilar interstitial markings. Chronic blunting of the costophrenic angles and flattening of hemidiaphragms. No evidence of acute consolidation. No pneu mothorax. HEART/MEDIASTINUM: Enlarged heart size with central pulmonary vascular prominence. Aortic atheroscler osis. OTHER: No acute osseous findings. IMPRESSION: No acute cardiopulmonary findings or significant interval change from prior exam. Electronically signed by: Julian Rosen MD 11/17/2023 11:38 PM CDT Due to temporary technical issues with the PACS/Fluency reporting system, reports are being signed by the in house radiologists without review as a courtesy to insure prompt reporting. The interpreting radiologist is fully responsible for the content of the report.
--- NOTE | 2023-11-18 17:08 | P.SSS ---
Patient History Date of Service: 11/18/23 Reason for admission: ANEMIA HG OF 6.2 History of Present Illness: I CALLED [facility]ORT LAST NIGHT TO COME TO ER HER HG IS DOWN TO 6.2 GM. MALDONADO HAD RECURRENT ANEMIA AND HER IRON PROFILE IS SUGGESTIVE OF CHRONIC DISEASE. SHE HAS HAD FULL GI [place]. ER DOCTOR SOMEHOW ORDERED TROPONIN AND IT IS MILD HIGH. SHE HAS NO ACUTE CORONARY SS. Allergies meperidine HCl [From Demerol] Allergy (Verified 08/04/23 14:54) hallucinations Sulfa (Sulfonamide Antibiotics) Adverse Reaction (Verified 08/04/23 14:54) Nausea/Vomiting Morphine Allergy (Uncoded 08/04/23 14:54) hallucinations Home Medications: Levothyroxine [Synthroid*] 100 mcg PO DAILY 03/25/20 Losartan Potassium 100 mg PO DAILY 03/25/20 Insulin Glargine,Hum.rec.anlog [Lantus] 15 units SQ PRN 11/01/20 Omeprazole [Prilosec] 40 mg PO DAILY 11/01/20 Rosuvastatin Calcium 40 mg PO DAILY 11/01/20 Potassium Oral Tab [Klor-Con 10 mEq Tab] 10 meq PO BID #60 tab 10/22/23 Pregabalin [Lyrica*] 75 mg PO TID 10/22/23 Venlafaxine HCl [Venlafaxine HCl ER] 75 mg PO DAILY 10/22/23 Folic Acid 1 mg PO DAILY 11/18/23 Propranolol [Inderal] 10 mg PO BID 11/18/23 predniSONE [Deltasone] 5 mg PO DAILY 11/18/23 - Past Medical/Surgical History Diabetic: Yes -: Herpes -: Hypothyroidisim -: Hypertension -: High Cholesterol -: Depression -: GERD -: Giant Cell Arteritis -: Kidney Cancer -: Neuropathy -: DM (chemical induced) -: Nephrectomy Right -: Gastric bypass -: Hysterectomy -: Hernia Repair - Family History Father -: Cancer Notes: - Lung Cancer Mother Notes: - Congestive heart failure, Diabetes - Social History Smoking Status: Never smoker Alcohol use: No CD- Drugs: No Caffeine use: No Place of Residence: Home Review of Systems 10-point ROS is otherwise unremarkable Physical Examination - Vital Signs Temperature: 97.5 F Blood Pressure: 141/61 Pulse: 68 Respirations: 18 Pulse Ox (%): 98 - Physical Exam General: Mild distress HEENT: Atraumatic, PERRLA, Mucous membr. moist/pink, EOMI, Sclerae nonicteric Neck: Supple, 2+ carotid pulse no bruit, No LAD, Without JVD or thyroid abnormality Respiratory: Clear to auscultation bilaterally, Normal air movement Cardiovascular: Regular rate/rhythm, Normal S1 S2 Gastrointestinal: Normal bowel sounds, No tenderness Musculoskeletal: No tenderness Integumentary: No rashes Neurological: Normal gait, Normal speech, Normal strength at 5/5 x4 extr, Normal tone, Normal affect Lymphatics: No axilla or inguinal lymphadenopathy - Studies Laboratory Data (last 24 hrs) 11/17/23 11/17/23 11/17/23 23:18 23:18 23:18 WBC 2.30 L Hgb 6.5 L Hct 19.9 L Plt Count 221 PT 11.4 INR 1.04 Sodium 140 Potassium 3.8 BUN 23 H Creatinine 1.14 H Glucose 118 H Total Bilirubin 0.4 AST 15 ALT 18 Alkaline Phosphatase 89 - Diagnosis (Problem(s)) (1) Elevated troponin Current Visit: Yes Status: Acute Plan: NOT CLEAR NO CORONARY SS SHE HAD NORMAL CATH A FEW YEARS AGO. THIS MAY DELAY DISCHARGE. (2) Anemia Current Visit: No Status: Chronic Plan: MOST LIKEY MDS HAS BICYTOPENIA NOW. I CALLED DR REED TO DO SMEAR ON HER. SHE HAS BEEN TO [facility] BEFORE. FERRITIN IS HIGH MILD , THIS CAN BE APR. HEMOCHROMATOSIS LESS LIKELY. Qualifiers: Anemia type: other cause - Disposition Disposition: ROUTINE DISCHARGE
--- NOTE | 2023-11-18 17:28 | P.CNS ---
Date of Consult: 11/18/23 Chief Complaint: ANEMIA HG OF 6.2 History of Present Illness: Patient presented from primary care office for low Hgb, she report fatigue, SOB, denies having any chest pain, this is not the first time that she get admitted with anemia requiring blood transfusion, she denies having any chest pain, no palpitations, no syncope. Allergies meperidine HCl [From Demerol] Allergy (Verified 08/04/23 14:54) hallucinations Sulfa (Sulfonamide Antibiotics) Adverse Reaction (Verified 08/04/23 14:54) Nausea/Vomiting Morphine Allergy (Uncoded 08/04/23 14:54) hallucinations Home Medications: Levothyroxine [Synthroid*] 100 mcg PO DAILY 03/25/20 Losartan Potassium 100 mg PO DAILY 03/25/20 Insulin Glargine,Hum.rec.anlog [Lantus] 15 units SQ PRN 11/01/20 Omeprazole [Prilosec] 40 mg PO DAILY 11/01/20 Rosuvastatin Calcium 40 mg PO DAILY 11/01/20 Potassium Oral Tab [Klor-Con 10 mEq Tab] 10 meq PO BID #60 tab 10/22/23 Pregabalin [Lyrica*] 75 mg PO TID 10/22/23 Venlafaxine HCl [Venlafaxine HCl ER] 75 mg PO DAILY 10/22/23 Folic Acid 1 mg PO DAILY 11/18/23 Propranolol [Inderal] 10 mg PO BID 11/18/23 predniSONE [Deltasone] 5 mg PO DAILY 11/18/23 - Past Medical/Surgical History Diabetic: Yes -: Herpes -: Hypothyroidisim -: Hypertension -: High Cholesterol -: Depression -: GERD -: Giant Cell Arteritis -: Kidney Cancer -: Neuropathy -: DM (chemical induced) -: Nephrectomy Right -: Gastric bypass -: Hysterectomy -: Hernia Repair - Family History Father Medical History: Cancer Notes: - Lung Cancer Mother Notes: - Congestive heart failure, Diabetes - Social History Smoking Status: Unknown if ever smoked Alcohol use: No CD- Drugs: No Caffeine use: No Place of Residence: Home Review of Systems 10-point ROS is otherwise unremarkable Physical Examination Temp Pulse Resp BP Pulse Ox 97.5 F 68 18 141/61 H 98 11/18/23 17:08 11/18/23 17:08 11/18/23 17:08 11/18/23 17:08 11/18/23 17:08 General: Alert, Oriented x3 HEENT: Atraumatic Neck: Supple Respiratory: Clear to auscultation bilaterally Cardiovascular: No edema, Normal S1 S2 Gastrointestinal: Normal bowel sounds Laboratory Data (last 24 hrs) 11/17/23 11/17/23 11/17/23 23:18 23:18 23:18 WBC 2.30 L Hgb 6.5 L Hct 19.9 L Plt Count 221 PT 11.4 INR 1.04 Sodium 140 Potassium 3.8 BUN 23 H Creatinine 1.14 H Glucose 118 H Total Bilirubin 0.4 AST 15 ALT 18 Alkaline Phosphatase 89 - Problems (1) HLD (hyperlipidemia) Current Visit: Yes Status: Acute Plan: continue Crestor 40 mg daily Lipid panel. (2) Elevated troponin Current Visit: Yes Status: Acute Plan: patient is not having chest pain and mild troponin tise with no delta, it is most likely type 2 PA from anemia recommend transfusion and follow up as outpatient with cardiology. (3) HTN (hypertension) Onset Date: 01/27/18 Current Visit: No Status: Acute Plan: BP is better today. Continue Losartan 100 mg daily Continue Propranolol 10 mg BID
[2023-11-18 21:40] LABS: Absolute Lymphocytes (CBC) 0.9 K/uL (0.7-4.9); Absolute Monocytes 0.9 K/uL (0.1-1.3); Absolute Neutrophil 0.8 K/uL (1.8-8.0); Basophils % 0.5 % (0-1.3); Eosinophils % 0.1 % (0-4.4); Hematocrit 29.1 % (36.0-45.0); Hemoglobin 9.5 g/dL (12.0-15.0); MCH 29.7 pg (27.0-35.0); MCHC 32.8 g/dL (32.0-36.0); MCV 90.4 fL (80-100); MPV 7.9 fL (7.6-11.3); Nucleated Red Blood Cells % 0.2 % (0-0); Platelets 136 thou/uL (152-406); RBC Red Blood Cell Count 3.22 M/uL (3.86-4.86); Red Cell Distribution Width 16.8 % (12.1-15.2)
[2023-11-18 21:46] LABS: Monocytes % 34.4 % (3.3-12.3)
[2023-11-19 05:24] VITALS: BMI 23.4
[2023-11-19 07:45] LABS: Absolute Lymphocytes (CBC) 1.3 K/uL (0.7-4.9); Absolute Monocytes 0.9 K/uL (0.1-1.3); Absolute Neutrophil 0.8 K/uL (1.8-8.0); Basophils % 0.8 % (0-1.3); Eosinophils % 1.2 % (0-4.4); Hematocrit 31.5 % (36.0-45.0); Hemoglobin 10.3 g/dL (12.0-15.0); Lymphocytes % 42.3 % (15.3-44.8); MCHC 32.8 g/dL (32.0-36.0); MCV 91.5 fL (80-100); MPV 7.9 fL (7.6-11.3); Monocytes % 29.9 % (3.3-12.3); Neutrophils % 25.8 % (41.7-73.7); Nucleated Red Blood Cells % 0.2 % (0-0); Platelets 147 thou/uL (152-406); RBC Red Blood Cell Count 3.44 M/uL (3.86-4.86); Red Cell Distribution Width 17.6 % (12.1-15.2)
[2023-11-19 10:27] VITALS: BP 146/56; TEMP 97.4
[2023-11-20 20:16] LABS: Haptoglobin 141 mg/dL (43-212)
== END 2023-11-19 10:25 | disposition home health service (06) | DRG 811 ==
LOC: ER 22:09 → ERHOLD 11-18 02:00 → 4TH 11-18 02:30
PROVIDERS: ADMIT Internal Medicine; ATTEND Internal Medicine
PROC: 30233N1 Transfusion of Nonautologous Red Blood Cells into Peripheral Vein, Percutaneous Approach (ICD-10-PCS; principal; 2023-11-18)
DX: D46.9 Myelodysplastic syndrome, unspecified (principal); I21.A1 Myocardial infarction type 2; E03.9 Hypothyroidism, unspecified; K21.9 Gastro-esophageal reflux disease without esophagitis; E78.00 Pure hypercholesterolemia, unspecified; I12.9 Hypertensive chronic kidney disease with stage 1 through stage 4 chronic kidney disease, or unspecified chronic kidney disease; N18.30 Chronic kidney disease, stage 3 unspecified; E11.22 Type 2 diabetes mellitus with diabetic chronic kidney disease; E11.40 Type 2 diabetes mellitus with diabetic neuropathy, unspecified; D63.1 Anemia in chronic kidney disease; I25.2 Old myocardial infarction; Z90.5 Acquired absence of kidney; Z79.4 Long term (current) use of insulin; Z88.5 Allergy status to narcotic agent; Z88.2 Allergy status to sulfonamides; Z79.52 Long term (current) use of systemic steroids; Z90.49 Acquired absence of other specified parts of digestive tract; Z98.84 Bariatric surgery status; Z90.710 Acquired absence of both cervix and uterus; Z85.528 Personal history of other malignant neoplasm of kidney; Z79.899 Other long term (current) drug therapy; Z79.890 Hormone replacement therapy
CPT/HCPCS: 36415; 71045; 80048; 80076; 82607; 82728; 82784; 82947; 83010; 83540; 83615; 84165; 84466; 84484; 85025; 85044; 85610; 86364; 86850; 86900; 86901; 86920; 93005; 96365; 96367; 99285; J0360; J0612; J7050; J7512; P9016; P9047

== ENCOUNTER 2023-12-17 08:11 | Day surgery (SDC) | payer OTHER ==
[2023-12-17] MEDS ORDERED: NA CHLORIDE 0.9% 500 ML ONE (09:17)
[2023-12-17 09:24] LABS: Absolute Eosinophils 0.1 K/uL (0-0.5); Absolute Lymphocytes (CBC) 0.7 K/uL (0.7-4.9); Absolute Monocytes 0.7 K/uL (0.1-1.3); Absolute Neutrophil 0.8 K/uL (1.8-8.0); Eosinophils % 2.5 % (0-4.4); Hematocrit 21.6 % (36.0-45.0); Lymphocytes % 30.5 % (15.3-44.8); MCH 29.9 pg (27.0-35.0); MCHC 32.5 g/dL (32.0-36.0); MCV 92.1 fL (80-100); MPV 7.7 fL (7.6-11.3); Monocytes % 30.8 % (3.3-12.3); Neutrophils % 35.2 % (41.7-73.7); Nucleated Red Blood Cells % 0.2 % (0-0); Percent Reticulocyte Count 1.06 % (0.4-2.05); Platelets 142 thou/uL (152-406); RBC Red Blood Cell Count 2.34 M/uL (3.86-4.86)
[2023-12-17 09:26] LABS: PT Prothrombin Time 11.3 SECONDS (9.5-12.5); PTT, Activated Partial Thromb 31.9 SECONDS (24.3-36.9); Protime INR 1.03
[2023-12-17 10:36] LABS: Atypical Lymphocytes 9 %; Differential Total Cells Count 100; Eosinophils 6 % (0-3); Lymphocytes 33 % (15-42); Monocytes 15 % (0-10); Segmented Neutrophils 37 % (40-80)
[2023-12-17 10:37] LABS: Basophilic Stippling 1+; Blood Morphology Comment NOTED (NOT SEEN); Platelet Estimate ADEQ; Toxic Granulation NOTED
[2023-12-17] MEDS ORDERED: MIDAZOLAM HCL 2 MG/2 ML INJ ONE (11:14)
[2023-12-17] MEDS ORDERED: FLUMAZENIL 0.1 MG/ML (5 mL VIAL) IV ONE (11:14)
[2023-12-17] MEDS ORDERED: NALOXONE HCL 2 MG/2 ML VIAL ONE (11:15)
[2023-12-17] MEDS ORDERED: FENTANYL CITR 100 MCG/2 ML ONE (11:15)
[2023-12-17 14:41] VITALS: BP 137/44; TEMP 97.8; O2SAT 98
--- NOTE | 2023-12-17 15:04 | RAD REPORT ---
EXAM DESCRIPTION: - Bone Marrow Biopsy - 12/17/2023 12:47 pm CLINICAL HISTORY: BONE MARROW BX COMPARISON: No comparisons FINDINGS: Preoperative diagnosis: Pancytopenia Post operative diagnosis: Same Conscious Sedation: 50 mcg fentanyl, and 0.5 mg Versed were administered intravenously. Total sedatio n time: 14 minutes. Patient was continuously monitored by nursing staff under my supervision. Contrast used: NONE Estimated blood loss: less than 5 mL Specimens: As below Informed consent was obtained following discussion with the relevant risks and benefits of the proced ure. Time-out procedure was performed. The patient was placed prone on the table and the right buttoc k area was prepped and draped in the usual sterile fashion. 1% lidocaine was infiltrated into the sub cutaneous tissues and deeply to the level of the periosteum for local anesthesia. Under computed romina graphic guidance, a 10 gauge introducer was advanced into the right iliac bone. Subsequently, an 11 g auge, bone core needle was advanced into the right iliac bone and a total of 8 mL bone marrow aspirat e was obtained. An additional bone core was then obtained. Samples were given to the lab personnel fo r appropriate processing and pathology analysis. Postprocedure imaging demonstrated no complications. The patient tolerated the procedure without imme diate complication and transferred to the recovery room in stable condition. IMPRESSION: Successful CT-guided bone marrow aspiration and core biopsy. All CT scans are performed using dose optimization technique as appropriate and may include automated exposure control or mA/KV adjustment according to patient size.
[2023-12-17 15:58] LABS: Cytogenetics, Bone Marrow SENT; Flow Cytometry, Bone Marrow SENT
== END 2023-12-17 14:25 | disposition home or self-care (01) ==
LOC: DS 08:11
PROVIDERS: ATTEND Internal Medicine
DX: D61.818 Other pancytopenia (principal); C64.1 Malignant neoplasm of right kidney, except renal pelvis
CPT/HCPCS: 85025; 36415; 88313; 85610; 85044; 88305; 88311; 85730; 38221; J2250; J3010; J7040; J2310

== ENCOUNTER 2023-12-19 14:19 | Observation (INO) | payer OTHER ==
[2023-12-19 16:29] LABS: Absolute Lymphocytes (CBC) 0.5 K/uL (0.7-4.9); Absolute Monocytes 0.5 K/uL (0.1-1.3); Absolute Neutrophil 0.8 K/uL (1.8-8.0); Basophils % 0.7 % (0-1.3); Eosinophils % 0.4 % (0-4.4); Hematocrit 20.4 % (36.0-45.0); Hemoglobin 6.6 g/dL (12.0-15.0); Lymphocytes % 26.7 % (15.3-44.8); MCHC 32.1 g/dL (32.0-36.0); MCV 93.5 fL (80-100); MPV 7.7 fL (7.6-11.3); Monocytes % 28.6 % (3.3-12.3); Neutrophils % 43.6 % (41.7-73.7); Nucleated Red Blood Cells % 0.3 % (0-0); Platelets 126 thou/uL (152-406); RBC Red Blood Cell Count 2.18 M/uL (3.86-4.86); Red Cell Distribution Width 19.2 % (12.1-15.2)
[2023-12-19 16:44] LABS: Anion Gap 7.3 mEq/L (5.0-15.0); Potassium 4.3 mEq/L (3.5-5.1)
[2023-12-19 17:51] LABS: Band Neutrophils 7 % (0-1); Blood Morphology Comment NOT SEEN (NOT SEEN); Differential Total Cells Count 100; Lymphocytes 37 % (15-42); Metamyelocytes 1 % (0-0); Monocytes 6 % (0-10); Platelet Estimate DECR; Segmented Neutrophils 49 % (40-80); White Blood Cell Scan OK (OK)
[2023-12-19] MEDS: NA CHLORIDE 0.9% 250 ML ONE (20:49)
[2023-12-19] MEDS: cloNIDine HCL 0.1 MG TAB PO PRN (21:42)
[2023-12-19] MEDS: PANTOPRAZOLE 40MG TABLET PO SCH (21:42)
[2023-12-19] MEDS ORDERED: ACETAMINOPHEN 325 MG TABLET PO PRN (21:51)
[2023-12-19] MEDS ORDERED: DIPHENHYDRAMINE 25 MG TAB/CAP PO PRN (21:51)
[2023-12-19] MEDS ORDERED: POLYETHYL GLY 3350 17 GM/DOSE PO PRN (21:51)
[2023-12-19] MEDS ORDERED: LOPERAMIDE HCL 2 MG CAPSULE PO PRN (21:51)
[2023-12-19] MEDS ORDERED: ONDANSETRON 4 MG (ODT) TAB PO PRN (21:51)
[2023-12-19] MEDS ORDERED: NACHLORIDE 0.45% 1,000 ML IV SCH (22:00)
[2023-12-19] MEDS: ALPRAZOLAM 0.25 MG TABLET PO PRN (22:14)
[2023-12-20] MEDS: NA CHLORIDE 0.9% 250 ML ONE (02:07)
[2023-12-20 07:00] LABS: Absolute Eosinophils 0.1 K/uL (0-0.5); Absolute Lymphocytes (CBC) 1.1 K/uL (0.7-4.9); Absolute Monocytes 0.8 K/uL (0.1-1.3); Absolute Neutrophil 0.5 K/uL (1.8-8.0); Eosinophils % 2.1 % (0-4.4); Hematocrit 26.4 % (36.0-45.0); Hemoglobin 8.6 g/dL (12.0-15.0); Lymphocytes % 43.2 % (15.3-44.8); MCH 29.7 pg (27.0-35.0); MCHC 32.8 g/dL (32.0-36.0); MCV 90.5 fL (80-100); MPV 7.6 fL (7.6-11.3); Monocytes % 33.6 % (3.3-12.3); Neutrophils % 20.1 % (41.7-73.7); Nucleated Red Blood Cells % 0.1 % (0-0); Platelets 117 thou/uL (152-406); RBC Red Blood Cell Count 2.91 M/uL (3.86-4.86); Red Cell Distribution Width 17.3 % (12.1-15.2)
--- NOTE | 2023-12-20 11:36 | P.SSS ---
Patient History Date of Service: 12/20/23 Reason for admission: SEVERE ANEMIA History of Present Illness: PAT COMES ONCE AGAIN WITH ANEMIA OF 6.5 GM. 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 SHE HAD BIOPSY DONE ON FRIDAY. SHE WAS TO GO TO THEM SIX MONTHS AGO BUT APT WAS NOT AVAILABLE. SHE MAY RETURN FOR TRANSFUSION OFF AND ON. SHE RECEIVED TWO UNITS THIS TIME AND HG IS UP TO 8.6 GM. SHE IS STABLE TO GO HOME. Allergies meperidine HCl [From Demerol] Allergy (Verified 12/17/23 08:16) hallucinations Sulfa (Sulfonamide Antibiotics) Adverse Reaction (Verified 12/17/23 08:16) Nausea/Vomiting Morphine Allergy (Uncoded 12/17/23 08:16) hallucinations Home medications list reviewed: Yes Home Medications: Levothyroxine [Synthroid*] 100 mcg PO DAILY 03/25/20 Losartan Potassium 100 mg PO DAILY 03/25/20 Omeprazole [Prilosec] 40 mg PO DAILY 11/01/20 Rosuvastatin Calcium 40 mg PO DAILY 11/01/20 Potassium Oral Tab [Klor-Con 10 mEq Tab] 10 meq PO BID #60 tab 10/22/23 Pregabalin [Lyrica*] 75 mg PO NOON 10/22/23 Venlafaxine HCl [Venlafaxine HCl ER] 75 mg PO DAILY 10/22/23 Folic Acid 1 mg PO DAILY 11/18/23 Propranolol [Inderal] 10 mg PO DAILY 11/18/23 predniSONE [Deltasone] 5 mg PO DAILY 11/18/23 Cranberry Fruit Concentrate [Azo Cranberry] 2 tab PO DAILY 12/19/23 - Past Medical/Surgical History Has patient received pneumonia vaccine in the past: Yes Diabetic: Yes -: Herpes -: Hypothyroidisim -: Hypertension -: High Cholesterol -: Depression -: GERD -: Giant Cell Arteritis -: Kidney Cancer -: Neuropathy -: DM (chemical induced) -: Nephrectomy Right -: Gastric bypass -: Hysterectomy -: Hernia Repair - Family History Father -: Cancer Notes: - Lung Cancer Mother Notes: - Congestive heart failure, Diabetes - Social History Smoking Status: Never smoker Alcohol use: No CD- Drugs: No Caffeine use: Yes Place of Residence: Home Review of Systems 10-point ROS is otherwise unremarkable General: Weakness Physical Examination - Vital Signs Temperature: 97.3 F Blood Pressure: 155/67 Pulse: 68 Respirations: 14 Pulse Ox (%): 93 - Physical Exam General: Alert, In no apparent distress HEENT: Atraumatic, PERRLA, Mucous membr. moist/pink, EOMI, Sclerae nonicteric Neck: Supple, 2+ carotid pulse no bruit, No LAD, Without JVD or thyroid abnormality Respiratory: Clear to auscultation bilaterally, Normal air movement Cardiovascular: Regular rate/rhythm, Normal S1 S2 Gastrointestinal: Normal bowel sounds, No tenderness Musculoskeletal: No tenderness Integumentary: No rashes Neurological: Normal gait, Normal speech, Normal strength at 5/5 x4 extr, Normal tone, Normal affect Lymphatics: No axilla or inguinal lymphadenopathy - Studies Laboratory Data (last 24 hrs) 12/20/23 12/19/23 12/19/23 06:50 16:12 16:12 WBC 2.50 L 1.80 L Hgb 8.6 L D 6.6 L Hct 26.4 L 20.4 L Plt Count 117 L 126 L Sodium 144 Potassium 4.3 BUN 25 H Creatinine 0.95 Glucose 119 H 12/19/23 12/19/23 14:50 14:50 WBC Cancelled Hgb Cancelled Hct Cancelled Plt Count Cancelled Sodium Cancelled Potassium Cancelled BUN Cancelled Creatinine Cancelled Glucose Cancelled - Diagnosis (Problem(s)) (1) Pancytopenia Status: Acute Plan: PATH REPORT IS PENDING FROM BM BIOPSY SHE MAY HAVE MDS. (2) Severe anemia Status: Chronic Plan: RECURRENT ISSUE AND NEEDS TRANSFUSION EVERY FEW WEEKS. THIS MAY OR MAY NOT CHANGE AFTER DIAGNOSIS THERAPY MAY BE LIMITED. - Disposition Disposition: ROUTINE DISCHARGE Condition: FAIR
[2023-12-20 14:45] VITALS: BP 155/67; TEMP 97.3
[2023-12-20 14:46] VITALS: BMI 3374.4
[2023-12-20 14:47] VITALS: O2SAT 95
== END 2023-12-20 10:20 | disposition home or self-care (01) ==
LOC: 2ND 14:19
PROVIDERS: ADMIT Internal Medicine; ATTEND Internal Medicine
DX: D61.818 Other pancytopenia (principal); D64.9 Anemia, unspecified
CPT/HCPCS: 36430; 85025 ×2; 80048; 36415; 86900; 86850; 86901; 86920 ×2; P9016 ×2; J7050 ×2; G0379; G0378 ×2

== ENCOUNTER 2024-01-27 08:54 | Day surgery (SDC) | payer OTHER ==
[2024-01-27] MEDS ORDERED: NA CHLORIDE 0.9% 500 ML ONE (09:51)
[2024-01-27 10:40] VITALS: BMI 22.2
[2024-01-27 13:35] VITALS: BP 182/53; TEMP 97.8; O2SAT 100
== END 2024-01-27 12:52 | disposition home or self-care (01) ==
LOC: DS 08:54
PROVIDERS: ATTEND Internal Medicine
DX: D61.818 Other pancytopenia (principal); C64.1 Malignant neoplasm of right kidney, except renal pelvis; M31.6 Other giant cell arteritis; R10.13 Epigastric pain
CPT/HCPCS: 86900; 86850; 86901; 86920; 36430; 96365; 96366; P9016; J7040

== ENCOUNTER 2024-02-12 07:19 | Day surgery (SDC) | payer OTHER ==
[2024-02-12] MEDS ORDERED: NA CHLORIDE 0.9% 250 ML ONE (07:51)
[2024-02-12 08:57] VITALS: BMI 22.4
[2024-02-12 11:43] VITALS: BP 156/39; TEMP 97.7; O2SAT 94
[2024-02-12 13:31] LABS: Hematocrit 29.3 % (36.0-45.0); Hemoglobin 9.5 g/dL (12.0-15.0)
== END 2024-02-12 13:00 | disposition home or self-care (01) ==
LOC: DS 07:19
PROVIDERS: ATTEND Internal Medicine
DX: N18.9 Chronic kidney disease, unspecified (principal); D63.1 Anemia in chronic kidney disease; C64.1 Malignant neoplasm of right kidney, except renal pelvis; D61.818 Other pancytopenia
CPT/HCPCS: 36415; 36430; 85014; 85018; 86850; 86900; 86901; 86920; J7050; P9016